=== PATIENT | male | born 1955 | race Caucasian/White ===

== ENCOUNTER 2017-02-03 14:42 | Inpatient (IN) | payer OTHER ==
[2017-02-03] MEDS: LORazepam 2 MG/ML SYRINGE IV STA ×3 (14:42→15:00)
[2017-02-03] MEDS: SODIUM CHLORIDE 0.9% 1,000 ML IV STA ×2 (14:53→19:28)
[2017-02-03] MEDS: SODIUM CHLORIDE 0.9% 500 ML IV STA ×2 (14:53→17:42)
--- NOTE | 2017-02-03 14:56 | ED ---
Seizure HPI - General Chief Complaint: Seizure Stated Complaint: SEIZURE Time Seen by Provider: 02/03/17 14:42 Source: family, EMS, RN notes reviewed Mode of arrival: EMS - History of Present Illness Initial Comments: This is a 61-year-old male with a known history of seizure disorder as well as hypertension who apparently had a seizure at home prior to admission EMS was called he was transported here for evaluation. He had a seizure lasting about 2 minutes and route and then had a second one just upon arrival before entering the emergency department. Additionally he had a another seizure upon arrival into the room and after being placed on the emergency department stretcher. This one lasted approximately 1 minute with tonic clonic activity more swelling left with left lateral gaze. Per the family member the patient is every day drinker is unknown how much he drinks a pipe was found in his possession is unknown whether this was for marijuana drugs or tobacco at this time. He purely does not smoke cigarettes. He is on Depakote as well as blood pressure medication. No other history available at this time. No reports of trauma no reports of fevers chills sweats or other symptoms information is limited at this time. I did review the monitor strip submitted by EMS. There was some evidence during the first post ictal phase of bigeminy which did transition to a sinus rhythm. MD Complaint: seizure - Related Data Home Medications Medication Instructions Recorded Confirmed Aspirin 325 mg PO DAILY 02/03/17 02/03/17 Cholecalciferol [Vitamin D3] 5,000 unit PO DAILY 02/03/17 02/03/17 Diphenox-Atrop 2.5-0.025 mg 1 - 2 tab PO QID PRN 02/03/17 02/03/17 [Lomotil] Losartan [Cozaar] 50 mg PO DAILY 02/03/17 02/03/17 QUEtiapine [SEROquel] 50 mg PO HS 02/03/17 02/03/17 Ranitidine HCl 150 mg PO BID 02/03/17 02/03/17 Venlafaxine HCl ER [Effexor Xr] 150 mg PO QAM 02/03/17 02/03/17 Venlafaxine HCl [Effexor XR] 75 mg PO QAM 02/03/17 02/03/17 amLODIPine [Norvasc] 5 mg PO DAILY 02/03/17 02/03/17 Allergies Allergy/AdvReac Type Severity Reaction Status Date / Time No Known Allergies Allergy Verified 05/22/15 23:50 Review of Systems ROS Statement: Those systems with pertinent positive or pertinent negative responses have been documented in the HPI. ROS Other: All systems not noted in ROS Statement are negative. Limitations: ROS unobtainable due to patients medical condition Past Medical History Past Medical History: Chest Pain / Angina, COPD, GERD/Reflux, Seizure Disorder History of Any Multi-Drug Resistant Organisms: None Reported Past Surgical History: Hernia Repair Additional Past Surgical History / Comment(s): right leg surgery Past Psychological History: Anxiety, Bipolar, Depression Smoking Status: Current some day smoker Past Alcohol Use History: Occasional Past Drug Use History: Marijuana General Exam - General Exam Comments Initial Comments: This is a well-developed well-nourished male who is actively seizing upon arrival with left lateral gaze and tonic clonic like activity on the left upper lower extremity. Limitations: altered mental status, physical limitation General appearance: obtunded Head exam: Present: atraumatic, normocephalic, normal inspection Eye exam: Present: other (Left lateral gaze with the pupils at about 2 mm bilaterally.) ENT exam: Present: normal exam, mucous membranes moist Neck exam: Present: normal inspection. Absent: tenderness, meningismus, lymphadenopathy Respiratory exam: Present: normal lung sounds bilaterally. Absent: respiratory distress, wheezes, rales, rhonchi, stridor Cardiovascular Exam: Present: regular rate, normal rhythm, normal heart sounds. Absent: systolic murmur, diastolic murmur, rubs, gallop, clicks GI/Abdominal exam: Present: soft, normal bowel sounds. Absent: distended, tenderness, guarding, rebound, rigid Rectal exam: Present: deferred exam: Present: normal inspection Extremities exam: Present: normal capillary refill, other (As noted above) Back exam: Present: normal inspection Neurological exam: Present: altered Psychiatric exam: Present: other (Unable to evaluate) Skin exam: Present: warm, dry, intact, normal color. Absent: rash Course Vital Signs 02/03/17 14:44 Temperature 98.2 F Pulse Rate 89 Respiratory 20 Rate Blood Pressure 154/75 O2 Sat by Pulse 100 Oximetry - Reevaluation(s) Reevaluation #1: 02/03/17 15:23 Reevaluation patient after he returned Reevaluation #2: 02/03/17 15:24 Reevaluation of the patient returned from CAT scan reveals resolution of the left lateral gaze with a normal-appearing gaze. No further seizure activity is noted. Reevaluation #3: 02/03/17 16:48 Patient was reevaluated he is actually arousable. He still somewhat post ictal. I did discuss the findings with family members or present. Medical Decision Making - Medical Decision Making I did discuss findings both with family members the patient and with Dr. Perez. Patient will be admitted with consultation by neurology and cardiology. The patient's Depakote level is therapeutic at this time. - Lab Data Result diagrams: 02/03/17 14:50 02/03/17 14:50 Lab Results 02/03/17 02/03/17 Range/Units 14:50 14:50 WBC 15.9 H (3.8-10.6) k/uL RBC 4.55 (4.30-5.90) m/uL Hgb 14.8 (13.0-17.5) gm/dL Hct 48.6 (39.0-53.0) % MCV 106.9 H (80.0-100.0) fL MCH 32.5 (25.0-35.0) pg MCHC 30.4 L (31.0-37.0) g/dL RDW 12.7 (11.5-15.5) % Plt Count 321 (150-450) k/uL Neutrophils % (Manual) 36.0 % Band Neutrophils % 6.0 % Lymphocytes % (Manual) 57.0 % Monocytes % (Manual) 1.0 % Neutrophils # (Manual) 6.7 (1.3-7.7) k/uL Lymphocytes # (Manual) 9.1 H (1.0-4.8) k/uL Monocytes # (Manual) 0.2 (0-1.0) k/uL Nucleated RBCs 0 (0-0) /100 WBC Manual Slide Review Performed Reactive Lymphocytes Present Toxic Granulation Present Hypochromasia Marked Macrocytosis Moderate Sodium 139 (137-145) mmol/L Potassium 4.3 (3.5-5.1) mmol/L Chloride 97 L (98-107) mmol/L Carbon Dioxide <5 L* (22-30) mmol/L Anion Gap 37 mmol/L BUN 13 (9-20) mg/dL Creatinine 1.40 H (0.66-1.25) mg/dL Est GFR (MDRD) Af Amer >60 (>60 ml/min/1.73 sqM) Est GFR (MDRD) Non-Af 52 (>60 ml/min/1.73 sqM) Glucose 189 H (74-99) mg/dL Calcium 10.2 (8.4-10.2) mg/dL Magnesium 2.7 H (1.6-2.3) mg/dL Total Bilirubin 0.4 (0.2-1.3) mg/dL AST 31 (17-59) U/L ALT 20 L (21-72) U/L Alkaline Phosphatase 107 (38-126) U/L Total Protein 7.2 (6.3-8.2) g/dL Albumin 4.7 (3.5-5.0) g/dL Amylase 60 (30-110) U/L Lipase 212 (23-300) U/L TSH 13.700 H (0.465-4.680) mIU/L Free T4 0.98 (0.78-2.19) ng/dL Salicylates <1.0 mg/dL Acetaminophen <10.0 ug/mL Valproic Acid 72.3 ug/mL Serum Alcohol <10 mg/dL - EKG Data -: EKG Interpreted by In EKG shows normal: sinus rhythm (Sinus rhythm a rate of 111 tachycardia, LA interval was 78 QRS duration 126 QT/QTC of 340/473 nonspecific interventricular block artifact is noted.) - Radiology Data Radiology results: report reviewed (I did review the imaging and reports CAT scan is negative for acute findings as is the chest x-ray.), image reviewed Critical Care Time Critical Care Time: Yes Critical Care Time: 42 minutes of critical care time which includes initial monitoring of the EMS run and discussed with paramedics. History physical lab and x-ray as well as CAT scan orders on the patient evaluation of the same. Reevaluation the patient on multiple occasions. Discussion with family members. Discussion with the admitting physician. Admission orders and documentation of the above. Disposition Clinical Impression: Generalized seizure, Dysrhythmia, cardiac, Hypothyroidism Disposition: ADMITTED IP TO THIS [facility] Condition: Stable
[2017-02-03] MEDS ORDERED: LORazepam 2 MG/ML SYRINGE IV STA ×3 (14:58→17:41)
[2017-02-03 15:02] LABS: Aty Lym Flag Slight; CH 31.1; CHCM 29.2; HCT 48.6 % (39.0-53.0); HDW 2.22; HGB 14.8 gm/dL (13.0-17.5); Hypochromasia Marked; MCH 32.5 pg (25.0-35.0); MCHC 30.4 g/dL (31.0-37.0); MCV 106.9 fL (80.0-100.0); Macrocytosis Moderate; Mean Platelet Volume 7.8; RBC 4.55 m/uL (4.30-5.90); RDW 12.7 % (11.5-15.5); WBC 15.9 k/uL (3.8-10.6); WBC (Perox) 16.08
[2017-02-03 15:14] LABS: ALT 20 U/L (21-72); AST 31 U/L (17-59); Acetaminophen <10.0 ug/mL; Alcohol <10 mg/dL; Alkaline Phosphatase 107 U/L (38-126); Amylase 60 U/L (30-110); Anion Gap 37 mmol/L; Blood Urea Nitrogen 13 mg/dL (9-20); Calcium 10.2 mg/dL (8.4-10.2); Chloride 97 mmol/L (98-107); Glucose 189 mg/dL (74-99); Magnesium 2.7 mg/dL (1.6-2.3); Non-African American GFR(MDRD) 52 (>60 ml/min/1.73 sqM); Potassium 4.3 mmol/L (3.5-5.1); Salicylate <1.0 mg/dL; Sodium 139 mmol/L (137-145); Total Bilirubin 0.4 mg/dL (0.2-1.3); Total Protein 7.2 g/dL (6.3-8.2)
[2017-02-03 15:20] LABS: Add Differential Manual Differential
[2017-02-03 15:23] LABS: Nucleated Red Blood Cells 0 /100 WBC (0-0); Total Cells Counted 100
[2017-02-03 15:24] LABS: Manual Review Performed; Reactive Lymphocytes Present; Toxic Granulation Present
--- NOTE | 2017-02-03 15:39 | CT ---
EXAMINATION TYPE: CT brain wo con DATE OF EXAM: 02/03/2017 3:30 PM COMPARISON: Previous study dated 04/21/2014. HISTORY: Seizures CT DLP: 1108.4 mGycm Automated exposure control for dose reduction was used. FINDINGS: Central structures are midline. There is no evidence of hydrocephalus. No acute focal lesion, mass ef fect or midline shift is seen. I do not see evidence of intracranial blood. Visualized portions of the paranasal sinuses and mastoids are clear. I do not see a depressed skull f racture. IMPRESSION: NO ACUTE INTRACRANIAL ABNORMALITY.
[2017-02-03 15:53] LABS: Carbon Dioxide <5 mmol/L (22-30)
--- NOTE | 2017-02-03 16:06 | XR ---
EXAMINATION TYPE: XR chest 1V portable DATE OF EXAM: 02/03/2017 3:37 PM HISTORY: pain. REFERENCE: Previous study dated 12/02/2014. FINDINGS: The lungs are overinflated. Heart size is upper limits of normal. The lungs are clear. Pleu ral spaces are clear. IMPRESSION: 1. COPD. 2. BORDERLINE CARDIOMEGALY.
[2017-02-03] MEDS ORDERED: LORazepam 2 MG/ML SYRINGE IV PRN (16:52)
[2017-02-03] MEDS ORDERED: NALOXONE 0.4 MG/ML 1 ML VIAL IV PRN (16:52)
[2017-02-03] MEDS ORDERED: PHENYTOIN SODIUM INJ 1,000 MG in SODIUM CHLORIDE 0.9% 100 ML IVPB STA (17:41)
--- NOTE | 2017-02-03 17:43 | ED ---
Medical Decision Making - Medical Decision Making The patient was noted to be back in a seizure his heart rate went up to about 1: 30 he was noted to have a left lateral gaze. Slight tremor additional Ativan and now a 1 g dose of Dilantin has been ordered. - Lab Data Result diagrams: 02/03/17 14:50 02/03/17 14:50 Lab Results 02/03/17 02/03/17 Range/Units 14:50 14:50 WBC 15.9 H (3.8-10.6) k/uL RBC 4.55 (4.30-5.90) m/uL Hgb 14.8 (13.0-17.5) gm/dL Hct 48.6 (39.0-53.0) % MCV 106.9 H (80.0-100.0) fL MCH 32.5 (25.0-35.0) pg MCHC 30.4 L (31.0-37.0) g/dL RDW 12.7 (11.5-15.5) % Plt Count 321 (150-450) k/uL Neutrophils % (Manual) 36.0 % Band Neutrophils % 6.0 % Lymphocytes % (Manual) 57.0 % Monocytes % (Manual) 1.0 % Neutrophils # (Manual) 6.7 (1.3-7.7) k/uL Lymphocytes # (Manual) 9.1 H (1.0-4.8) k/uL Monocytes # (Manual) 0.2 (0-1.0) k/uL Nucleated RBCs 0 (0-0) /100 WBC Manual Slide Review Performed Reactive Lymphocytes Present Toxic Granulation Present Hypochromasia Marked Macrocytosis Moderate Sodium 139 (137-145) mmol/L Potassium 4.3 (3.5-5.1) mmol/L Chloride 97 L (98-107) mmol/L Carbon Dioxide <5 L* (22-30) mmol/L Anion Gap 37 mmol/L BUN 13 (9-20) mg/dL Creatinine 1.40 H (0.66-1.25) mg/dL Est GFR (MDRD) Af Amer >60 (>60 ml/min/1.73 sqM) Est GFR (MDRD) Non-Af 52 (>60 ml/min/1.73 sqM) Glucose 189 H (74-99) mg/dL Calcium 10.2 (8.4-10.2) mg/dL Magnesium 2.7 H (1.6-2.3) mg/dL Total Bilirubin 0.4 (0.2-1.3) mg/dL AST 31 (17-59) U/L ALT 20 L (21-72) U/L Alkaline Phosphatase 107 (38-126) U/L Total Protein 7.2 (6.3-8.2) g/dL Albumin 4.7 (3.5-5.0) g/dL Amylase 60 (30-110) U/L Lipase 212 (23-300) U/L TSH 13.700 H (0.465-4.680) mIU/L Free T4 0.98 (0.78-2.19) ng/dL Salicylates <1.0 mg/dL Acetaminophen <10.0 ug/mL Valproic Acid 72.3 ug/mL Serum Alcohol <10 mg/dL Disposition Clinical Impression: Generalized seizure, Dysrhythmia, cardiac, Hypothyroidism, Status epilepticus Disposition: ADMITTED IP TO THIS [facility] Condition: Stable Referrals: Angelo Perez MD [Primary Care Provider] - 1-2 days
[2017-02-03] MEDS ORDERED: SODIUM CHLORIDE 0.9% 1,000 ML IV STA (17:53)
[2017-02-03] MEDS: SODIUM CHLORIDE 0.9% 1,000 ML IV SCH (19:00)
[2017-02-03 19:56] LABS: Glucose,Whole Blood 151 mg/dL (75-99)
[2017-02-03] MEDS: VALPROATE SODIUM 1,000 MG in SODIUM CHLORIDE 0.9% 50 ML IVPB SCH (21:11)
[2017-02-03] MEDS ORDERED: ACETAMINOPHEN IV (For NPO) 1,000 MG in EMPTY BAG 1 BAG IVPB ONE (22:31)
--- NOTE | 2017-02-03 22:50 | P.CNNES ---
History of Present Illness Consult date: 02/03/17 Reason for Consult: Patient admitted with recurrent seizures. History of Present Illness: This patient is a 61-year-old right-handed white male who has underlying history of seizure disorder and hypertension. Apparently he was having a seizure at home which lasted about 2 minutes in duration. He had a second seizure in the emergency room. Patient has a history of underlying seizure disorder for which she has been taking Depakote. His seizure in the emergency room lasted about 1 minute in duration with some postictal confusion. Patient was sent for computed tomography scan of the brain which revealed no acute abnormality. His drug screen did come back positive for marijuana as well as cocaine. He was given Ativan in the emergency room and then transferred to [facility] care. An A Team Code was initiated as a patient went into a episode of sonorous breathing and possible recurrent seizure. He was started on IV Dilantin and transferred to the intensive care unit. Patient was given another dose of Ativan in the ICU and his Dilantin was initiated. We switched the patient to IV Depacon and IV Dilantin for further seizure management. We recommended placing him on IV Depacon thousand milligrams IVP he back every 12 hours. He is currently on Dilantin with a maintenance dose of 100 mg IV piggyback every 8 hours. The patient remains lethargic and obtunded in the intensive care unit. He has had no further active seizure noted by the ICU nursing staff. Patient was noted in the ER to have left lateral eye gaze. This suggests seizure focus emanating from the right hemisphere. Patient continues to remain postictal. It is unclear whether the patient has been having frequent breakthrough seizures. Family was not at bedside at the time of his evaluation. We will obtain anticonvulsant blood levels tomorrow morning and adjust his dose as needed. We have requested a stat EEG procedure to be done in the ICU nursing staff will get in contact with the nursing supervisor wrapping room. The patient is to continue close monitoring in the intensive care unit. ICU nursing staff will try to reach family members for further history. Patient is now evaluated in the intensive care unit and neurology has been consulted for further evaluation and recommendations. Review of Systems Constitutional: Denies chills, Denies fever Eyes: denies blurred vision, denies pain Ears, nose, mouth and throat: Denies headache, Denies sore throat Cardiovascular: Denies chest pain, Denies shortness of breath Respiratory: Denies cough Gastrointestinal: Denies abdominal pain, Denies diarrhea, Denies nausea, Denies vomiting Musculoskeletal: Denies myalgias Integumentary: Denies pruritus, Denies rash Neurological: Reports change in mentation, Reports confusion, Reports convulsions, Reports seizures, Denies numbness, Denies weakness Psychiatric: Denies anxiety, Denies depression Endocrine: Denies fatigue, Denies weight change Past Medical History Past Medical History: Chest Pain / Angina, COPD, GERD/Reflux, Seizure Disorder History of Any Multi-Drug Resistant Organisms: None Reported Past Surgical History: Hernia Repair Additional Past Surgical History / Comment(s): right leg surgery Past Psychological History: Anxiety, Bipolar, Depression Smoking Status: Current some day smoker Past Alcohol Use History: Occasional Past Drug Use History: Marijuana Medications and Allergies Home Medications Medication Instructions Recorded Confirmed Type Aspirin 325 mg PO DAILY 02/03/17 02/03/17 History Cholecalciferol [Vitamin D3] 5,000 unit PO DAILY 02/03/17 02/03/17 History Diphenox-Atrop 2.5-0.025 mg 1 - 2 tab PO QID PRN 02/03/17 02/03/17 History [Lomotil] Losartan [Cozaar] 50 mg PO DAILY 02/03/17 02/03/17 History QUEtiapine [SEROquel] 50 mg PO HS 02/03/17 02/03/17 History Ranitidine HCl 150 mg PO BID 02/03/17 02/03/17 History Venlafaxine HCl ER [Effexor Xr] 150 mg PO QAM 02/03/17 02/03/17 History Venlafaxine HCl [Effexor XR] 75 mg PO QAM 02/03/17 02/03/17 History amLODIPine [Norvasc] 5 mg PO DAILY 02/03/17 02/03/17 History Allergies Allergy/AdvReac Type Severity Reaction Status Date / Time No Known Allergies Allergy Verified 05/22/15 23:50 Physical Examination - Vital Signs Vital Signs: Vital Signs Temp Pulse Resp BP Pulse Ox 02/03/17 18:16 98.7 F 139 H 18 173/96 96 02/03/17 17:34 137 H 20 164/78 94 L Intake and Output 02/03/17 02/03/17 02/03/17 06:59 14:59 22:59 Output Total 500 Balance -500 Output: Urine 500 Straight 500 - Constitutional General appearance: average body habitus, cooperative - EENT EENT: PERRL, mucous membranes moist - Respiratory Respiratory: lungs clear, normal breath sounds - Cardiovascular Cardiovascular: regular rate, normal S1, normal S2 Extremities: no peripheral edema bilaterally - Gastrointestinal Gastrointestinal: normoactive bowel sounds - Integumentary Integumentary: normal - Neurologic Cranial nerve examination: PERRL, VFF, V1/V2/V3 grossly intact, face symmetric, intact gag reflex, intact corneal reflex, normal palatal elevation Speech examination: intact Sensorimotor examination: intact Detailed motor examination: full strength in all major muscle groups Detailed sensory examination: intact Reflex and gait examination: intact Reflexes: 1+: ankle, bicep, knee, tricep - Musculoskeletal Musculoskeletal: no pain - Psychiatric Psychiatric: mood/affect appropriate, cooperative Results - Laboratory Findings CBC and BMP: 02/03/17 14:50 02/03/17 14:50 Abnormal Lab Findings: Abnormal Labs 02/03/17 02/03/17 18:05 19:53 POC Glucose (mg/dL) 151 H Urine Cocaine Screen Detected H U Marijuana (THC) Screen Detected H Assessment and Plan (1) Complex partial epilepsy Status: Acute Code(s): G40.209 - LOCAL-REL SYMPTC EPI W CMPLX PRT SEIZ,NOT NTRCT,W/O STAT EPI (2) Hypothyroidism Status: Acute Code(s): E03.9 - HYPOTHYROIDISM, UNSPECIFIED (3) Sepsis Status: Acute Code(s): A41.9 - SEPSIS, UNSPECIFIED ORGANISM (4) Drug abuse Status: Acute Code(s): F19.10 - OTHER PSYCHOACTIVE SUBSTANCE ABUSE, UNCOMPLICATED Plan: This patient is a 61-year-old male admitted with recurrent seizures. Patient was treated with Ativan in the emergency room and admitted to selective care floor. He then became obtunded and sonorous with possible breakthrough seizure. He was given Ativan and transferred to the intensive care unit. He was started on IV Dilantin in addition to Depakote. He has a long-standing history of seizure disorder for which she has been taking Depakote monotherapy. Due to the frequent breakthrough seizures he was started on Dilantin as well in the intensive care unit. We are recommending that he be maintained on both anticonvulsant medications at this time. We've requested a stat EEG for further evaluation. Patient is to be closely monitored in the intensive care unit. We will switch him to IV forms of both Depacon and Dilantin. We will place him on seizure precautions and we'll reevaluate him tomorrow morning. We will check anticonvulsant blood levels tomorrow morning as well. His overall prognosis at this time remains very guarded. We would like to review his EEG as soon as it is completed. His overall prognosis at this time remains very guarded. Time with Patient: Greater than 30
[2017-02-03] MEDS: PHENYTOIN SODIUM INJ 50 MG/ML 2 ML VIAL IVP SCH (23:42)
[2017-02-03] MEDS: QUEtiapine 50 MG TAB PO SCH (23:44)
[2017-02-03] MEDS: FAMOTIDINE 20 MG TAB PO SCH (23:44)
[2017-02-03 23:46] LABS: ABG Base Excess -3.6 mmol/L; ABG HCO3 21 mmol/L (21-25); ABG PCO2 37 mmHg (35-45); ABG PH 7.37 (7.35-7.45); ABG PO2 69 mmHg (83-108); ABG TCO2 22 mmol/L (19-24)
[2017-02-04] MEDS ORDERED: PHENYTOIN SODIUM INJ 100 MG in SODIUM CHLORIDE 0.9% 100 ML IVPB SCH ×2
[2017-02-04] MEDS ORDERED: DEXTROSE 50%-WATER 50 ML SYRINGE IVP ONE ×2 (02:32→14:36)
[2017-02-04 02:37] LABS: ABG Base Excess -7.5 mmol/L; ABG HCO3 16 mmol/L (21-25); ABG PCO2 26 mmHg (35-45); ABG PH 7.42 (7.35-7.45); ABG PO2 48 mmHg (83-108); ABG TCO2 17 mmol/L (19-24)
[2017-02-04 02:43] LABS: Glucose,Whole Blood 59 mg/dL (75-99)
[2017-02-04 02:48] LABS: Glucose,Whole Blood 228 mg/dL (75-99)
[2017-02-04] MEDS: SODIUM CHLORIDE 0.9% 1,000 ML IV SCH ×2 (04:11→13:53)
[2017-02-04 05:13] LABS: Basophils % (A) 0 %; CH 32.5; CHCM 34.4; Eosinophils % (A) 0 %; HCT 44.7 % (39.0-53.0); HDW 2.33; Luc # (Auto) 0.21; Luc % (Auto) 1; Lymphocytes # (A) 1.1 k/uL (1.0-4.8); Lymphocytes % (A) 7 %; MCH 31.7 pg (25.0-35.0); MCHC 33.5 g/dL (31.0-37.0); Mean Platelet Volume 6.6; Monocytes # (A) 1.3 k/uL (0-1.0); Monocytes % (A) 8 %; Neutrophils # (A) 13.9 k/uL (1.3-7.7); Neutrophils % (A) 84 %; RBC 4.73 m/uL (4.30-5.90); RDW 13.1 % (11.5-15.5); WBC 16.6 k/uL (3.8-10.6); WBC (Perox) 17.17
[2017-02-04 05:16] LABS: MCV 94.6 fL (80.0-100.0)
[2017-02-04 05:18] LABS: INR 1.1 (<1.1); Prothrombin Time 11.2 sec (9.0-12.0)
[2017-02-04] MEDS ORDERED: NALOXONE 0.4 MG/ML 1 ML VIAL IV PRN (05:34)
[2017-02-04 05:48] LABS: ALT 40 U/L (21-72); AST 70 U/L (17-59); Alkaline Phosphatase 68 U/L (38-126); Anion Gap 13 mmol/L; Blood Urea Nitrogen 17 mg/dL (9-20); Calcium 8.4 mg/dL (8.4-10.2); Carbon Dioxide 20 mmol/L (22-30); Chloride 99 mmol/L (98-107); Glucose 153 mg/dL (74-99); Magnesium 2.2 mg/dL (1.6-2.3); Non-African American GFR(MDRD) 57 (>60 ml/min/1.73 sqM); Phosphorous 4.7 mg/dL (2.5-4.5); Potassium 5.1 mmol/L (3.5-5.1); Sodium 132 mmol/L (137-145); Total Bilirubin 0.3 mg/dL (0.2-1.3); Total Protein 6.5 g/dL (6.3-8.2)
[2017-02-04] MEDS: LORazepam 2 MG/ML SYRINGE IV PRN ×5 (07:36→18:50)
--- NOTE | 2017-02-04 07:55 | XR ---
EXAMINATION TYPE: XR chest 1V portable DATE OF EXAM: 02/04/2017 7:50 AM HISTORY: ICU. REFERENCE: Previous study dated 02/03/2017. FINDINGS: The heart is mildly enlarged. There is a worsening infiltrate at the right lung base. There are small, bilateral effusions. IMPRESSION: 1. MILD CARDIOMEGALY. 2. WORSENING OPACITY, RIGHT LUNG BASE. THIS MAY REPRESENT PNEUMONIA. 3. SMALL, BILATERAL EFFUSIONS.
[2017-02-04] MEDS ORDERED: VENLAFAXINE HCL ER 150 MG CAP PO SCH (09:00)
[2017-02-04] MEDS: PHENYTOIN SODIUM INJ 50 MG/ML 2 ML VIAL IVP SCH ×2 (09:30→16:41)
[2017-02-04] MEDS: PANTOPRAZOLE 40 MG/10 ML VIAL IV SCH (09:31)
[2017-02-04] MEDS: VENLAFAXINE HCL ER 75 MG CAP PO SCH (09:31)
[2017-02-04] MEDS ORDERED: HALOPERIDOL LACTATE 5 MG/ML 1 ML VIAL IVP PRN ×3 (09:39→09:42)
--- NOTE | 2017-02-04 09:43 | P.CNPUL ---
History of Present Illness Consult date: 02/04/17 Reason for consult: other Chief complaint: Seizure disorder History of present illness: 61-year-old male with a history of well-known seizure disorder as well as hypertension was brought in by EMS because of seizures. Apparently had lasted about 2 minutes or more. The patient arrived and emergency department department and had another seizure in the ER. Also apparently had a seizure upon the floor. Was initially admitted to the floor on February 03 transferred to the ICU yesterday as well. The patient apparently did have a drug screen that was positive. The patient isn't everyday drinker. He also was found to have or use marijuana as well as tobacco products. His chronic medications including Depakote and a blood pressure pill. Anyway he is currently here in the ICU. Dr. Perez was ordered an EEG. He is very restless. We'll retry some Haldol to settle him down. Some of his restlessness and agitation may relate to alcohol withdrawal and this could represent alcoholic seizure disorder. Anyway he is currently on an IV. He is also getting BiPAP at 10 and 5 and 100%. The patient's mostly awake and alert but is somewhat agitated. Review of Systems ROS unobtainable: due to mental status Past Medical History Past Medical History: Chest Pain / Angina, COPD, GERD/Reflux, Seizure Disorder History of Any Multi-Drug Resistant Organisms: None Reported Past Surgical History: Hernia Repair Additional Past Surgical History / Comment(s): right leg surgery Past Psychological History: Anxiety, Bipolar, Depression Smoking Status: Current some day smoker Past Alcohol Use History: Occasional Past Drug Use History: Marijuana Medications and Allergies Home Medications Medication Instructions Recorded Confirmed Type Aspirin 325 mg PO DAILY 02/03/17 02/03/17 History Cholecalciferol [Vitamin D3] 5,000 unit PO DAILY 02/03/17 02/03/17 History Diphenox-Atrop 2.5-0.025 mg 1 - 2 tab PO QID PRN 02/03/17 02/03/17 History [Lomotil] Losartan [Cozaar] 50 mg PO DAILY 02/03/17 02/03/17 History QUEtiapine [SEROquel] 50 mg PO HS 02/03/17 02/03/17 History Ranitidine HCl 150 mg PO BID 02/03/17 02/03/17 History Venlafaxine HCl ER [Effexor Xr] 150 mg PO QAM 02/03/17 02/03/17 History Venlafaxine HCl [Effexor XR] 75 mg PO QAM 02/03/17 02/03/17 History amLODIPine [Norvasc] 5 mg PO DAILY 02/03/17 02/03/17 History Allergies Allergy/AdvReac Type Severity Reaction Status Date / Time No Known Allergies Allergy Verified 05/22/15 23:50 Physical Exam Osteopathic Statement: *. No significant issues noted on an osteopathic structural exam other than those noted in the History and Physical/Consult. Vitals: Vital Signs Temp Pulse Resp BP Pulse Ox 02/04/17 09:00 114 H 41 H 153/91 96 02/04/17 08:00 99.5 F 117 H 29 H 143/95 96 02/04/17 07:00 112 H 50 H 140/96 95 02/04/17 06:00 112 H 24 135/96 94 L 02/04/17 05:00 113 H 38 H 138/96 93 L 02/04/17 04:00 98.3 F 111 H 45 H 147/90 92 L 02/04/17 03:00 111 H 36 H 145/95 79 L 02/04/17 02:00 114 H 47 H 140/91 81 L 02/04/17 01:00 118 H 25 H 143/95 90 L 02/04/17 00:00 100.9 F H 119 H 27 H 145/85 88 L 02/03/17 23:00 102.9 F H 123 H 38 H 148/95 90 L 02/03/17 22:00 124 H 35 H 144/85 90 L 02/03/17 21:00 130 H 30 H 148/88 90 L 02/03/17 20:00 100.6 F H 131 H 36 H 145/85 94 L 02/03/17 19:20 137 H 32 H 148/88 91 L 02/03/17 18:16 98.7 F 139 H 18 173/96 96 02/03/17 17:34 137 H 20 164/78 94 L Intake and Output 02/03/17 02/04/17 02/04/17 22:59 06:59 14:59 Intake Total 200 Output Total 820 830 310 Balance -820 -830 -110 Intake: Intake, IV Titration 200 Amount Phenytoin Sodium Inj 1, 100 000 mg In Sodium Chloride 0.9% 100 ml @ 200 mls/hr IVPB ONCE STA Rx#: [id number] Sodium Chloride 0.9% 1, 100 000 ml @ 100 mls/hr IV . Q10H ON LICENSE OF [facility] Rx#:[id number] Output: Urine 820 830 310 Straight 500 Other: Voiding Method Indwelling Catheter Indwelling Catheter Weight 68.039 kg 78.6 kg No acute distress, somewhat agitated. HEENT examination is grossly unremarkable. BiPAP device in place. Can't assess abuse mucous membranes. Neck supple. Full range of motion. Cardiovascular examination reveals regular rhythm rate. Heart rate about 100. Lungs reveal few scattered rhonchi. No wheezes. Abdomen soft Extremities are intact. Results - Laboratory Findings CBC and BMP: 02/04/17 04:50 02/04/17 04:50 ABG ABG pH 7.42 (7.35-7.45) 02/04/17 02:31 ABG pCO2 26 mmHg (35-45) L 02/04/17 02:31 ABG pO2 48 mmHg (83-108) L 02/04/17 02:31 ABG O2 Saturation 85.0 % (94-97) L 02/04/17 02:31 PT/INR, D-dimer PT 11.2 sec (9.0-12.0) 02/04/17 04:50 INR 1.1 (<1.1) 02/04/17 04:50 Abnormal lab findings: Abnormal Labs 02/03/17 02/03/17 02/03/17 18:05 19:53 23:40 WBC Neutrophils # Monocytes # ABG pCO2 ABG pO2 69 L ABG HCO3 ABG Total CO2 ABG O2 Saturation 93.0 L Sodium Carbon Dioxide Creatinine Glucose POC Glucose (mg/dL) 151 H Phosphorus AST Urine Cocaine Screen Detected H U Marijuana (THC) Screen Detected H 02/04/17 02/04/17 02/04/17 02:31 02:31 02:47 WBC Neutrophils # Monocytes # ABG pCO2 26 L ABG pO2 48 L ABG HCO3 16 L ABG Total CO2 17 L ABG O2 Saturation 85.0 L Sodium Carbon Dioxide Creatinine Glucose POC Glucose (mg/dL) 59 L 228 H Phosphorus AST Urine Cocaine Screen U Marijuana (THC) Screen 02/04/17 02/04/17 04:50 04:50 WBC 16.6 H Neutrophils # 13.9 H Monocytes # 1.3 H ABG pCO2 ABG pO2 ABG HCO3 ABG Total CO2 ABG O2 Saturation Sodium 132 L Carbon Dioxide 20 L Creatinine 1.30 H Glucose 153 H POC Glucose (mg/dL) Phosphorus 4.7 H AST 70 H Urine Cocaine Screen U Marijuana (THC) Screen - Diagnostic Findings Chest x-ray: image reviewed (Chest x-ray labs and medications are all reviewed.)
[2017-02-04] MEDS: HALOPERIDOL LACTATE 5 MG/ML 1 ML VIAL IVP PRN ×3 (09:50→21:49)
[2017-02-04] MEDS: VALPROATE SODIUM 1,000 MG in SODIUM CHLORIDE 0.9% 50 ML IVPB SCH ×2 (09:57→21:48)
[2017-02-04 10:08] LABS: Glucose,Whole Blood 154 mg/dL (75-99)
[2017-02-04] MEDS: amLODIPine 5 MG TAB PO SCH (11:27)
[2017-02-04] MEDS: CHOLECALCIFEROL 1,000 UNIT TAB PO SCH (11:28)
[2017-02-04] MEDS: ENOXAPARIN 40 MG/0.4 ML SYRINGE SQ SCH (11:28)
[2017-02-04] MEDS: LOSARTAN 50 MG TAB PO SCH (11:28)
[2017-02-04] MEDS: ASPIRIN 325 MG TAB PO SCH (11:28)
[2017-02-04 12:08] LABS: Glucose,Whole Blood 182 mg/dL (75-99)
[2017-02-04] MEDS: LEVOTHYROXINE IVP 100 MCG/5 ML VIAL IV SCH (13:49)
[2017-02-04] MEDS ORDERED: PHENYTOIN SODIUM INJ 500 MG in SODIUM CHLORIDE 0.9% 100 ML IVPB STA (14:35)
--- NOTE | 2017-02-04 15:38 | CONS ---
DATE OF CONSULTATION: Mr. Valerio is a 61-year-old male with a known long standing history of seizure disorder, who presented to the emergency room with seizure that was persistent in status epilepticus. He is weak but not following commands. He was more postictal yesterday. Apparently the patient has a history of chronic alcohol and drug use. There is no cardiac history according to the family although the details of that are not available to me. Hemodynamically he is stable. He has sinus tachycardia, but no evidence of malignant arrhythmia. Review of systems and past medical history beyond that cannot be obtained. But reviewing the old records, the patient has a history of bipolar disorder, history of anxiety, history of gastroesophageal reflux disease, chronic obstructive lung disease. His medications at the time of admission included amlodipine, Effexor, Seroquel, Cozaar and aspirin. PHYSICAL EXAMINATION: He is a 61-year-old male not answering verbal questions. Blood pressure 124/80 with a heart in the one teens with a temperature of 100.3. HEAD: Normocephalic. EYES: Sclerae anicteric. NECK: No bruit. LUNGS: Clear to auscultation anteriorly. HEART: Tachycardic. S1, S2, no S3, no rub. ABDOMEN: Soft, positive bowel sounds. No organomegaly. EXTREMITIES: Chronic skin changes. No significant edema. Lab data revealed a BUN and creatinine of 17 and 1.3. Potassium 5.1. Hemoglobin 15, white blood cell of 16.6. Her TSH of 13.7. FT4 0.98. His drug screen is positive for cocaine and marijuana. His EKG revealed sinus tachycardia with nonspecific intraventricular conduction delay. His chest x-ray shows possible pneumonia. IMPRESSION: 1. Seizure with persistent seizure activity at the time of presentation, improved at this time. 2. Sinus tachycardia. 3. Positive cocaine intake. 4. History of alcohol intake. 5. History of hypertension. RECOMMENDATIONS: From the cardiac standpoint, will continue on the present supportive care. There is no evidence of active cardiac issue at this time. I will obtain an echocardiogram with Doppler to evaluate his left ventricular systolic function and depending on his progress, further recommendation will be made. The prognosis is guarded. Thank you for this consult. Will follow with you.
--- NOTE | 2017-02-04 15:41 | P.PN ---
Subjective This patient is a 61-year-old male who is seen today in the intensive care unit. Patient was admitted with multiple breakthrough seizures. He has a history of underlying seizure disorder. He is currently on a combination of Depakote and Dilantin for seizure prophylaxis. According to the ICU nursing staff he has not had any recurrent seizures since last night. His Depakote level this morning is 58.2. His Dilantin level is 6.7. He may require a bolus of Dilantin to get his Dilantin level into a therapeutic range. We had requested a stat EEG to be performed for this patient this morning. Apparently the manufacturing maintenance technician was having difficulty as a patient is currently on BiPAP. We will need to attempt the EEG to see if there is any evidence of complex partial status epilepticus. EEG was completed today. We reviewed the EEG which reveals diffuse slowing. There is no evidence of active seizure focus or status epilepticus based on this EEG finding. Patient is currently on BiPAP. He does seem to be more awake and alert today as compared to yesterday. According to his who is at bedside his last seizure occurred about a month ago. His Dilantin level was slightly low today and we will be giving him a IV bolus and recheck his levels tomorrow morning. Plans are to consider weaning him off of the BiPAP later today. Patient also has low-grade temperature. We will continue close neurological follow-up of this patient in the intensive care unit. He is to be maintained on his current anticonvulsant medications. His prognosis at this time remains guarded. Objective - Vital Signs Vital signs: Vital Signs Temp 100.3 F H 02/04/17 11:00 Pulse 106 H 02/04/17 13:00 Resp 31 H 02/04/17 13:00 BP 116/85 02/04/17 13:00 Pulse Ox 92 L 02/04/17 13:00 Intake & Output 02/03/17 02/04/17 02/04/17 18:59 06:59 18:59 Intake Total 850 Output Total 500 1150 1120 Balance -500 -1150 -270 Weight 68.039 kg 78.6 kg 78.6 kg Intake: IV 600 Sodium Chloride 0.9% 1, 600 000 ml @ 100 mls/hr IV . [facility] Rx#:[id number] Intake, IV Titration 250 Amount Phenytoin Sodium Inj 1, 100 000 mg In Sodium Chloride 0.9% 100 ml @ 200 mls/hr IVPB ONCE STA Rx#: [id number] Sodium Chloride 0.9% 1, 100 000 ml @ 100 mls/hr IV . Q10H [facility] Rx#:[id number] Valproate Sodium 1,000 mg 50 In Sodium Chloride 0.9% 50 ml @ 50 mls/hr IVPB Q12HR [facility] Rx#:[id number] Output: Urine 500 1150 1120 Straight 500 Other: Voiding Method Indwelling Catheter Indwelling Catheter - Exam Physical examination: PHYSICAL EXAMINATION: Patient is resting comfortably in bed. VITAL SIGNS: Blood pressure is [116/85]. Heart rate is [106]. Respiration is [30 ]. Temperature is [100.3]. HEENT: Head is atraumatic, neck is supple, there were no carotid bruits. CHEST: Lungs are clear to auscultation and percussion. CARDIAC: S1, S2 normal rate and rhythm. There is no murmur. ABDOMEN: Soft and nontender. Bowel sounds are present. EXTREMITIES: There is no pedal edema. Peripheral pulses are present. Neurological examination: Patient's neurological examination is unchanged from yesterday. Patient is sitting in bed with BiPAP in place. He does seem to be more awake and alert today. He is moving all extremities. - Labs CBC & Chem 7: 02/04/17 04:50 02/04/17 04:50 Labs: Abnormal Lab Results - Last 24 Hours (Table) 02/03/17 02/03/17 02/03/17 Range/Units 18:05 19:53 23:40 WBC (3.8-10.6) k/uL Neutrophils # (1.3-7.7) k/uL Monocytes # (0-1.0) k/uL ABG pCO2 (35-45) mmHg ABG pO2 69 L (83-108) mmHg ABG HCO3 (21-25) mmol/L ABG Total CO2 (19-24) mmol/L ABG O2 Saturation 93.0 L (94-97) % Sodium (137-145) mmol/L Carbon Dioxide (22-30) mmol/L Creatinine (0.66-1.25) mg/dL Glucose (74-99) mg/dL POC Glucose (mg/dL) 151 H (75-99) mg/dL Phosphorus (2.5-4.5) mg/dL AST (17-59) U/L Urine Cocaine Screen Detected H (NotDetected) U Marijuana (THC) Screen Detected H (NotDetected) 02/04/17 02/04/17 02/04/17 Range/Units 02:31 02:31 02:47 WBC (3.8-10.6) k/uL Neutrophils # (1.3-7.7) k/uL Monocytes # (0-1.0) k/uL ABG pCO2 26 L (35-45) mmHg ABG pO2 48 L (83-108) mmHg ABG HCO3 16 L (21-25) mmol/L ABG Total CO2 17 L (19-24) mmol/L ABG O2 Saturation 85.0 L (94-97) % Sodium (137-145) mmol/L Carbon Dioxide (22-30) mmol/L Creatinine (0.66-1.25) mg/dL Glucose (74-99) mg/dL POC Glucose (mg/dL) 59 L 228 H (75-99) mg/dL Phosphorus (2.5-4.5) mg/dL AST (17-59) U/L Urine Cocaine Screen (NotDetected) U Marijuana (THC) Screen (NotDetected) 02/04/17 02/04/17 02/04/17 Range/Units 04:50 04:50 10:06 WBC 16.6 H (3.8-10.6) k/uL Neutrophils # 13.9 H (1.3-7.7) k/uL Monocytes # 1.3 H (0-1.0) k/uL ABG pCO2 (35-45) mmHg ABG pO2 (83-108) mmHg ABG HCO3 (21-25) mmol/L ABG Total CO2 (19-24) mmol/L ABG O2 Saturation (94-97) % Sodium 132 L (137-145) mmol/L Carbon Dioxide 20 L (22-30) mmol/L Creatinine 1.30 H (0.66-1.25) mg/dL Glucose 153 H (74-99) mg/dL POC Glucose (mg/dL) 154 H (75-99) mg/dL Phosphorus 4.7 H (2.5-4.5) mg/dL AST 70 H (17-59) U/L Urine Cocaine Screen (NotDetected) U Marijuana (THC) Screen (NotDetected) 02/04/17 Range/Units 12:06 WBC (3.8-10.6) k/uL Neutrophils # (1.3-7.7) k/uL Monocytes # (0-1.0) k/uL ABG pCO2 (35-45) mmHg ABG pO2 (83-108) mmHg ABG HCO3 (21-25) mmol/L ABG Total CO2 (19-24) mmol/L ABG O2 Saturation (94-97) % Sodium (137-145) mmol/L Carbon Dioxide (22-30) mmol/L Creatinine (0.66-1.25) mg/dL Glucose (74-99) mg/dL POC Glucose (mg/dL) 182 H (75-99) mg/dL Phosphorus (2.5-4.5) mg/dL AST (17-59) U/L Urine Cocaine Screen (NotDetected) U Marijuana (THC) Screen (NotDetected) Assessment and Plan (1) Complex partial epilepsy Status: Acute Code(s): G40.209 - LOCAL-REL SYMPTC EPI W CMPLX PRT SEIZ,NOT NTRCT,W/O STAT EPI (2) Hypothyroidism Status: Acute Code(s): E03.9 - HYPOTHYROIDISM, UNSPECIFIED (3) Sepsis Status: Acute Code(s): A41.9 - SEPSIS, UNSPECIFIED ORGANISM (4) Drug abuse Status: Acute Code(s): F19.10 - OTHER PSYCHOACTIVE SUBSTANCE ABUSE, UNCOMPLICATED Plan: This patient is a 61-year-old male who is being followed in the intensive care unit for seizure disorder. He was able to complete a EEG today which was reviewed. His EEG is diffusely slow with no evidence of any epileptic seizure focus. There is also no evidence of status epilepticus. He is on Depakote and Dilantin at this time. His Depakote level today is therapeutic. His Dilantin level was slightly subtherapeutic. We will give him an IV bolus of Dilantin and recheck levels tomorrow morning. Case was discussed at length today with the patient's who is at bedside. All of her questions were answered. She is aware of his guarded condition. We will continue close neurological follow- up for this patient in the intensive care unit.
[2017-02-04 18:49] LABS: Glucose,Whole Blood 171 mg/dL (75-99)
[2017-02-04] MEDS: QUEtiapine 50 MG TAB PO SCH (21:43)
--- NOTE | 2017-02-04 21:49 | EEG ---
DATE OF SERVICE: 02/04/2017 INDICATIONS FOR EXAMINATION: This patient is a 61 -year-old male with history of seizure disorder. The patient admitted with multiple break through seizures and possible status epilepticus. EEG for further evaluation. AGE: 61Y EEG FINDINGS: A routine 21 channel awake digital EEG recording was accomplished utilizing the 10-20 international system with bipolar and referential montages. The background activity in the most alert resting state consists of a low amplitude, poorly developed and poorly sustained 4-5 Hz activity over the posterior head regions. This posterior rhythm attenuates minimally to eye opening. There is an excessive amount of muscle and motion artifact seen throughout the entire tracing. Hyperventilation was not performed. Photic stimulation at flash frequencies of 2-30 Hz produced a minimal occipital driving response. No epileptiform discharges were seen. IMPRESSION: This EEG gives evidence of a severe widespread diffuse disturbance in cerebral function. The EEG failed to reveal any focal, lateralized or epileptiform abnormalities. There is no evidence of complex partial status epilepticus based on this EEG tracing. If clinically indicated, a follow-up EEG is recommended. Clinical correlation is recommended.
[2017-02-04 22:21] LABS: Glucose,Whole Blood 142 mg/dL (75-99)
[2017-02-05] MEDS: SODIUM CHLORIDE 0.9% 1,000 ML IV SCH ×3 (00:58→17:48)
[2017-02-05] MEDS: PHENYTOIN SODIUM INJ 50 MG/ML 2 ML VIAL IVP SCH ×2 (00:58→09:43)
[2017-02-05] MEDS: LORazepam 2 MG/ML SYRINGE IV PRN ×4 (02:14→20:43)
[2017-02-05] MEDS: HALOPERIDOL LACTATE 5 MG/ML 1 ML VIAL IVP PRN ×3 (03:22→19:25)
[2017-02-05 04:59] LABS: Basophils % (A) 0 %; CH 32.7; CHCM 34.2; Eosinophils # (A) 0.1 k/uL (0-0.7); Eosinophils % (A) 1 %; HCT 39.8 % (39.0-53.0); HGB 13.4 gm/dL (13.0-17.5); Luc # (Auto) 0.13; Luc % (Auto) 1; Lymphocytes % (A) 10 %; MCH 32.4 pg (25.0-35.0); MCHC 33.8 g/dL (31.0-37.0); MCV 96.1 fL (80.0-100.0); Mean Platelet Volume 6.9; Monocytes # (A) 0.7 k/uL (0-1.0); Monocytes % (A) 7 %; Neutrophils # (A) 8.9 k/uL (1.3-7.7); Neutrophils % (A) 82 %; RBC 4.14 m/uL (4.30-5.90); RDW 13.2 % (11.5-15.5); WBC 10.8 k/uL (3.8-10.6); WBC (Perox) 11.59
[2017-02-05 05:11] LABS: Anion Gap 10 mmol/L; Blood Urea Nitrogen 14 mg/dL (9-20); Calcium 8.1 mg/dL (8.4-10.2); Carbon Dioxide 23 mmol/L (22-30); Chloride 109 mmol/L (98-107); Glucose 139 mg/dL (74-99); Non-African American GFR(MDRD) >60 (>60 ml/min/1.73 sqM); Potassium 4.8 mmol/L (3.5-5.1); Sodium 142 mmol/L (137-145)
--- NOTE | 2017-02-05 07:00 | XR ---
EXAMINATION TYPE: XR chest 1V DATE OF EXAM: 02/05/2017 6:29 AM HISTORY: Productive cough. REFERENCE: Previous study dated 02/04/2017. FINDINGS: The heart remains enlarged. There is a continuing area of increased opacity right lung base . This may represent pneumonia. There are bilateral effusions, greater on the right left. IMPRESSION: NO INTERVAL CHANGE IN APPEARANCE OF THE CHEST.
[2017-02-05 07:27] LABS: Glucose,Whole Blood 145 mg/dL (75-99)
[2017-02-05] MEDS ORDERED: LEVOTHYROXINE IVP 100 MCG/5 ML VIAL IV SCH (09:00)
[2017-02-05] MEDS: LEVOTHYROXINE IVP 100 MCG/5 ML VIAL IV SCH (09:43)
[2017-02-05] MEDS: ENOXAPARIN 40 MG/0.4 ML SYRINGE SQ SCH (09:43)
[2017-02-05] MEDS: PANTOPRAZOLE 40 MG/10 ML VIAL IV SCH (09:45)
[2017-02-05] MEDS: VALPROATE SODIUM 1,000 MG in SODIUM CHLORIDE 0.9% 50 ML IVPB SCH ×2 (09:46→21:58)
--- NOTE | 2017-02-05 10:04 | ECHOF ---
Referral Reason:htn MEASUREMENTS -------- HEIGHT: 182.9 cm WEIGHT: 78.5 kg BP: IVSd: 1.0 cm (0.6 - 1.1) LVIDd: 5.8 cm (3.9 - 5.3) LVPWd: 1.4 cm (0.6 - 1.1) IVSs: 1.3 cm LVIDs: 4.9 cm LVPWs: 1.5 cm LA Diam: 3.2 cm (2.7 - 3.8) LAESV Index (A-L): 19.39 ml/m Ao Diam: 4.2 cm (2.0 - 3.7) MV E Kevan: 0.52 m/s MV DecT: 190 ms MV A Kevan: 0.84 m/s MV E/A Ratio: 0.61 RAP: 5.00 mmHg RVSP: 30.81 mmHg FINDINGS -------- Sinus rhythm. Pt. is combative There is severe global hypokinesis of LV . Overall left ventricular systolic function is severely impaired with, an EF < 20%. Basal Segment Abran only. The right ventricle is normal in size. Normal LA size by volume 22+/-6 ml/m2. The right atrial size is normal. There is mild aortic valve sclerosis. There is no evidence of aortic regurgitation. Mild mitral annular calcification present. Mild mitral regurgitation is present. Mild tricuspid regurgitation present. There is no evidence of pulmonary hypertension. The right ventricular systolic pressure, as measured by Doppler, is 30.81mmHg. There is no pulmonic regurgitation present. The aortic root size is normal. There is no pericardial effusion. CONCLUSIONS -------- 1. Pt. is combative 2. The right ventricular systolic pressure, as measured by Doppler, is 30.81mmHg. 3. There is severe global hypokinesis of LV . 4. Overall left ventricular systolic function is severely impaired with, an EF < 20%. 5. Basal Segment Abran only. 6. There is mild aortic valve sclerosis. 7. Mild mitral annular calcification present. 8. Mild mitral regurgitation is present. 9. Mild tricuspid regurgitation present. 10. There is no evidence of pulmonary hypertension. LAYDOWN MACHINE OPERATOR: Willa Basilio RDCS
[2017-02-05] MEDS: ASPIRIN 325 MG TAB PO SCH (10:33)
[2017-02-05] MEDS: VENLAFAXINE HCL ER 75 MG CAP PO SCH ×2 (10:33)
[2017-02-05] MEDS: LOSARTAN 50 MG TAB PO SCH (10:33)
[2017-02-05] MEDS: amLODIPine 5 MG TAB PO SCH (10:33)
[2017-02-05] MEDS: CHOLECALCIFEROL 1,000 UNIT TAB PO SCH (10:33)
[2017-02-05] MEDS ORDERED: PHENYTOIN SODIUM INJ 50 MG/ML 2 ML VIAL IVP STA (11:05)
[2017-02-05] MEDS ORDERED: PHENYTOIN SODIUM INJ 200 MG in SODIUM CHLORIDE 0.9% 100 ML IV STA (11:09)
--- NOTE | 2017-02-05 11:42 | P.PN ---
Subjective This patient is a 61-year-old right-handed white male who has underlying history of seizure disorder and hypertension. Apparently he was having a seizure at home which lasted about 2 minutes in duration. He had a second seizure in the emergency room. Patient has a history of underlying seizure disorder for which she has been taking Depakote. His seizure in the emergency room lasted about 1 minute in duration with some postictal confusion. Patient was sent for computed tomography scan of the brain which revealed no acute abnormality. His drug screen did come back positive for marijuana as well as cocaine. He was given Ativan in the emergency room and then transferred to [facility]. An A Team Code was initiated as a patient went into a episode of snorous breathing and possible recurrent seizure. He was started on IV Dilantin and transferred to the intensive care unit. Patient was given another dose of Ativan in the ICU and his Dilantin was initiated. We switched the patient to IV Depacon and IV Dilantin for further seizure management. We recommended placing him on IV Depacon thousand milligrams IVP he back every 12 hours. He is currently on Dilantin with a maintenance dose of 100 mg IV piggyback every 8 hours. The patient remains lethargic and obtunded in the intensive care unit. He has had no further active seizure noted by the ICU nursing staff. Patient was noted in the ER to have left lateral eye gaze. This suggests seizure focus emanating from the right hemisphere. Patient continues to remain postictal. It is unclear whether the patient has been having frequent breakthrough seizures Over the past 24hours the patient has been in the intensive care unit, and the patient was not witnessed to have any seizure. His current antiepileptic medication includes a combination of Dilantin and valproic acid. The Dilantin level is at 8.8 and the patient will receive another 200 mg of IV Dilantin and his maintenance dose will be 200 mg IV every 12 hours. He is also on valproic acid and the level was 61.5. The patient is moving all 4 extremities. He occasionally gets confused and thrashes. He had required Ativan during this ICU stay and his last Ativan dose was 1 milligram around 8am this morning. There is a concern that the patient is also withdrawing from alcohol knowing that he has also history of alcoholism and he is currently on the CITX protocol. Furthermore, the patient had an echocardiogram this morning that showed a poor LV function with ejection fraction of 20% and there is mild aortic sclerosis and mild tricuspid and mitral regurgitation. There is no evidence of any pulmonary hypertension. No evidence of any pericardial effusion. Chest x-ray remains abnormal with a large right lower lobe consolidation which probably is a representation of an underlying aspiration pneumonia..Furthermore, the patient was having labored breathing earlier this morning in conjunction with this right lower lobe findings and based on that the patient was placed on a BiPAP with settings of 10 and 500 FiO2 of 70%. The patient is much more comfortable while being on a BiPAP treatment at this point. Breathing is less labored. Objective - Vital Signs Vital signs: Vital Signs Temp 99.8 F H 02/05/17 08:00 Pulse 111 H 02/05/17 11:00 Resp 11 L 02/05/17 11:00 BP 122/74 02/05/17 11:00 Pulse Ox 100 02/05/17 11:00 Intake & Output 02/04/17 02/05/17 02/05/17 18:59 06:59 18:59 Intake Total 1450 1200 550 Output Total 1790 820 60 Balance -340 380 490 Weight 78.6 kg 78.6 kg Intake: IV 1100 1200 500 Sodium Chloride 0.9% 1, 1100 1200 500 000 ml @ 100 mls/hr IV . Q10H [facility] Rx#:[id number] Intake, IV Titration 350 50 Amount Phenytoin Sodium Inj 1, 100 000 mg In Sodium Chloride 0.9% 100 ml @ 200 mls/hr IVPB ONCE STA Rx#: [id number] Phenytoin Sodium Inj 500 100 mg In Sodium Chloride 0.9 % 100 ml @ 200 mls/hr IVPB ONCE STA Rx#: [id number] Sodium Chloride 0.9% 1, 100 000 ml @ 100 mls/hr IV . Q10H [facility] Rx#:[id number] Valproate Sodium 1,000 mg 50 50 In Sodium Chloride 0.9% 50 ml @ 50 mls/hr IVPB Q12HR [facility] Rx#:[id number] Output: Urine 1790 820 60 Other: Voiding Method Indwelling Catheter Indwelling Catheter # Voids 1 - Exam The patient is currently on a BiPAP at a pressure of 10 over 5 cm of water and FiO2 of 70%. Is tolerating a full face BiPAP mask. Not using excessive muscle breathing. Head exam was generally normal. There was no scleral icterus or corneal arcus. Mucous membranes were moist.Neck was supple and without jugular venous distension, thyromegaly, or carotid bruits. Carotids were easily palpable bilaterally. There was no adenopathy.Cardiac exam revealed the PMI to be normally situated and sized. The rhythm was regular and no extrasystoles were noted during several minutes of auscultation. The first and second heart sounds were normal and physiologic splitting of the second heart sound was noted. There were no murmurs, rubs, clicks, or gallops. Lungs sounds are diminished in the right lung base along with some right basilar crackles.Abdominal exam revealed normal bowel sounds. The abdomen was soft, non- tender, and without masses, organomegaly, or appreciable enlargement of the abdominal aorta.Examination of the extremities revealed easily palpable radial, femoral and pedal pulses. There was no cyanosis, clubbing or edema. Neurologically the patient will undergo 4 extremities. He is quite strong. He cannot follow commands consistently and his level of focus and attention is limited to none as the patient can easily gets distracted and does not follow particular or complex commands. Swallow needs to be checked knowing that the patient has no gag reflex with MB elicited on today's evaluation. No focal neurological deficits at this point. - Labs CBC & Chem 7: 02/05/17 04:41 02/05/17 04:41 Labs: Abnormal Lab Results - Last 24 Hours (Table) 02/04/17 02/04/17 02/04/17 Range/Units 12:06 18:29 22:19 WBC (3.8-10.6) k/uL RBC (4.30-5.90) m/uL Neutrophils # (1.3-7.7) k/uL Chloride (98-107) mmol/L Glucose (74-99) mg/dL POC Glucose (mg/dL) 182 H 171 H 142 H (75-99) mg/dL Calcium (8.4-10.2) mg/dL 02/05/17 02/05/17 02/05/17 Range/Units 04:41 04:41 07:25 WBC 10.8 H (3.8-10.6) k/uL RBC 4.14 L (4.30-5.90) m/uL Neutrophils # 8.9 H (1.3-7.7) k/uL Chloride 109 H (98-107) mmol/L Glucose 139 H (74-99) mg/dL POC Glucose (mg/dL) 145 H (75-99) mg/dL Calcium 8.1 L (8.4-10.2) mg/dL Assessment and Plan Plan: Assessment 1 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 2 change in mental status, rule out postictal state. Rule out alcoholic encephalopathy/delirium tremens. 3 acute hypoxic respiratory failure 4 acute right lower lobe consolidation/aspiration pneumonia 5 CHF with ejection fraction of 20%, rule out alcoholic cardiomyopathy, rule out cocaine induced, rule out ischemic myopathy 6 hypothyroidism 7 history of marijuana and cocaine abuse 8 hypertension 9 bipolar disorder 10 chronic anxiety disorder 11 GERD Plan *The patient IV Zosyn for aspiration pneumonia. Continue on BiPAP therapy. Monitor mental status. Proceed with Ativan for any symptoms of delirium tremens. Continue monitoring the antiepileptic medication and adjusted dose of Dilantin and Depakote accordingly. Monitor for any seizure activity. Seizure precautions. Keep the patient nothing by mouth for now. Patient has no reliable gag no his mentation is adequate for any feeding at this point. The patient has to be treated here in the intensive care unit. The patient has an evolving right lung pneumonia and he is headed towards respiratory failure. The patient will need to be monitored neurologically for his mentation specially with a combination of postictal depression and alcoholic delirium tremens. Will add thiamine and MVI. I will suggest cutting down the fluids to 75 mL an hour of 0.9 saline. We'll continue to follow. Repeat chest x-ray in the morning. Monitor electrolytes. There is a critically care evaluation that was done and 32 minutes. Time with Patient: Greater than 30
[2017-02-05 12:10] LABS: Glucose,Whole Blood 133 mg/dL (75-99)
[2017-02-05] MEDS: PIPERACILLIN-TAZOBACTAM 3.375 GM in DEXTROSE/WATER 1 50ML.BAG IVPB SCH ×2 (13:13→17:45)
[2017-02-05] MEDS ORDERED: SODIUM CHLORIDE 0.9% 1,000 ML BAG ONE (13:13)
[2017-02-05] MEDS: 1: MVI, ADULT NO.4 WITH VIT K 10 ML, THIAMINE 100 MG, FOLIC ACID 1 MG in SODIUM CHLORIDE IV SCH ×4 (13:13)
--- NOTE | 2017-02-05 15:16 | P.PN ---
Subjective 61-year-old being seen in the intensive care unit this morning. Patient is confused pulled out his indwelling [place] catheter. Patient is sitting up in bed oriented to self only. Does not consistently follow simple commands echocardiogram done this morning shows left ventricular systolic function is severely impaired with an EF less than 20 no evidence of pulmonary hypertension currently being followed by neurology pulmonology. Patient's initial presentation to the emergency room. Patient had a seizure at home and had a second seizure in the emergency room. Patient does have a history of a seizure disorder had been taking Depakote at home. Reviewing the record in the emergency room indicate the seizure last one minute in duration patient had postictal confusion . CAT scan of the brain showed no acute abnormality. Patient had a drug screen that did come back positive for cocaine and marijuana. In the emergency room patient was given Ativan and transferred to the [facility]. Apparently an team need to be initiated when patient had an episode of snorous breathing a possible recurrent seizure. Patient was transferred to the intensive care unit. Patient started on IV Dilantin and monitor closely. This been no further seizure activity noted. Patient this morning Objective - Vital Signs Vital signs: Vital Signs Temp 98.9 F 02/05/17 12:00 Pulse 110 H 02/05/17 13:00 Resp 24 02/05/17 13:00 BP 105/71 02/05/17 13:00 Pulse Ox 99 02/05/17 13:00 Intake & Output 02/04/17 02/05/17 02/05/17 18:59 06:59 18:59 Intake Total 1450 1200 825 Output Total 1790 820 60 Balance -340 380 765 Weight 78.6 kg 78.6 kg Intake: IV 1100 1200 775 Mvi, Adult No.4 with Vit 75 K 10 ml Thiamine 100 mg Folic Acid 1 mg In Sodium Chloride 0.9% 1,000 ml @ 75 mls/hr IV .BY DURATION [facility] Rx#: [id number] Phenytoin Sodium Inj 200 100 mg In Sodium Chloride 0.9 % 100 ml @ 200 mls/hr IV ONCE STA Rx#:[id number] Sodium Chloride 0.9% 1, 1100 1200 600 000 ml @ 100 mls/hr IV . Q10H [facility] Rx#:[id number] Intake, IV Titration 350 50 Amount Phenytoin Sodium Inj 1, 100 000 mg In Sodium Chloride 0.9% 100 ml @ 200 mls/hr IVPB ONCE STA Rx#: [id number] Phenytoin Sodium Inj 500 100 mg In Sodium Chloride 0.9 % 100 ml @ 200 mls/hr IVPB ONCE STA Rx#: [id number] Sodium Chloride 0.9% 1, 100 000 ml @ 100 mls/hr IV . Q10H [facility] Rx#:[id number] Valproate Sodium 1,000 mg 50 50 In Sodium Chloride 0.9% 50 ml @ 50 mls/hr IVPB Q12HR [facility] Rx#:[id number] Output: Urine 1790 820 60 Other: Voiding Method Indwelling Catheter Indwelling Catheter # Voids 1 - Exam GENERAL APPEARANCE: 61-year-old male patient is alert, oriented to self only, in no acute distress. Does not consistently follow simple commands randomly moving all extremities VITAL SIGNS: Reviewed HEENT: Head is normocephalic and atraumatic. Pupils are equal and reactive. The nares are patent. Oropharynx is clear without lesions. NECK: Supple without lymphadenopathy. Traches midline. HEART: S1, S2. Regular rate and rhythm. Monitor sinus no murmur noted LUNGS: No crackles or wheezes are heard. Currently on BiPAP support ABDOMEN: Soft, nontender, nondistended with good bowel sounds. No peritoneal signs. No palpable organomegaly or masses. EXTREMITIES: Normal skin color and turgor. No cyanosis, rash, ulceration, clubbing or edema. Radial pedal pulses are 2/4 bilaterally. Randomly moves all extremities but not to simple commands purposefully not in a consistent manner - Labs CBC & Chem 7: 02/05/17 04:41 02/05/17 04:41 Labs: Abnormal Lab Results - Last 24 Hours (Table) 02/04/17 02/04/17 02/05/17 Range/Units 18:29 22:19 04:41 WBC 10.8 H (3.8-10.6) k/uL RBC 4.14 L (4.30-5.90) m/uL Neutrophils # 8.9 H (1.3-7.7) k/uL Chloride (98-107) mmol/L Glucose (74-99) mg/dL POC Glucose (mg/dL) 171 H 142 H (75-99) mg/dL Calcium (8.4-10.2) mg/dL 0402/05/17 02/05/17 Range/Units 04:41 07:25 12:07 WBC (3.8-10.6) k/uL RBC (4.30-5.90) m/uL Neutrophils # (1.3-7.7) k/uL Chloride 109 H (98-107) mmol/L Glucose 139 H (74-99) mg/dL POC Glucose (mg/dL) 145 H 133 H (75-99) mg/dL Calcium 8.1 L (8.4-10.2) mg/dL Assessment and Plan Plan: Impression 1 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 2 change in mental status, rule out postictal state. Rule out alcoholic encephalopathy/delirium tremens. 3 acute hypoxic respiratory failure 4 acute right lower lobe consolidation/aspiration pneumonia 5 CHF with ejection fraction of 20%, rule out alcoholic cardiomyopathy, rule out cocaine induced, rule out ischemic myopathy 6 hypothyroidism 7 history of marijuana and cocaine abuse 8 hypertension 9 bipolar disorder 10 chronic anxiety disorder 11 GERD #12 positive urine drug screen for cocaine and marijuana present on admission #13 present on admission febrile leukocytosis suspect sepsis not ruled out due to acute right lower lobe aspiration pneumonia Plan Continue recommendations per pulmonology service defer to Continue recommendations by neurology service defer to Follow up on repeat chest x-ray in the morning Seizure precautions IV fluid at 75 an hour monitor the response IV antibiotics Zosyn DVT and GI prophylaxis The above dictated assessment and findings were discussed with []. Impression and the plan of care have been dictated as directed. Sahara Hanson nurse practitioner acting as a scribe for for [].
--- NOTE | 2017-02-05 15:38 | PN ---
Mr. Valerio is a 61-year-old male with known history of alcohol and drug abuse history of seizures, who presented with recurrent seizure. Cardiology consultation was requested because of episode of tachycardia. He is more awake yet not following commands. Hemodynamically stable. His blood pressure is stable. There is no evidence of bradycardia. He had sinus tachycardia. He is on no pressors. He continues to be on the Lovenox subcu, Haloperidol, Losartan 50 mg daily and amlodipine. PHYSICAL EXAMINATION: His blood pressure running in the 120s with a heart rate in the one teens. LUNGS: Clear anteriorly. HEART: Regular rate rhythm, tachycardic. S1, S2, no S3, no rub. ABDOMEN: Soft, nontender. EXTREMITIES: No edema. Lab data revealed a creatinine 14 and 1.1. Potassium 4.8, hemoglobin of 13.4. IMPRESSION: 1. Seizure disorder. 2. History of chronic alcohol intake. 3. Sinus tachycardia. 4. History of hypertension. 5. Positive cocaine intake. RECOMMENDATION: We will review results of his echocardiogram. From the cardiac standpoint, there is no evidence of active cardiac abnormality at this time.
--- NOTE | 2017-02-05 16:10 | HP ---
DATE OF ADMISSION: 02/03/2017 CHIEF COMPLAINT: Grand mal seizure and status epilepticus. HISTORY OF PRESENT ILLNESS: This is another admissions for this 61-year-old white male. He has been on Depakote. He apparently had a seizure and EMS was summoned. He had seizures while he was en route to the hospital, as well as in the emergency room. He was treated and is postictal. There apparently was alcohol at the scene. REVIEW OF SYSTEMS: Unobtainable. Past medical history, family history and personal and social histories were all unobtainable and presumed unchanged. PHYSICAL EXAMINATION: VITAL SIGNS: Blood pressure 136/85 with a pulse of 104, respirations of 14. He is afebrile. GENERAL: Appeared to be lethargic. SKIN: Skin color is normal. Skin is warm and dry. Lymph nodes are not enlarged. Head, ears, eyes, nose, mouth, and throat were normal. Gaze conjugate. NECK: Supple. Neck veins not distended. CHEST: Clear. CARDIAC: Demonstrated normal sinus rhythm with occasional extra beats. No murmurs or extra sounds. ABDOMEN: Soft, nontender. EXTREMITIES: Normal. NEUROLOGICAL: Intact, except for his lethargy. IMPRESSION: 1. Grand mal seizure disorder, uncontrolled. 2. Frequent premature ventricular contractions. 3. Borderline personality. PLAN: 1. Bed rest. 2. IV fluids. 3. Seizure precautions. 4. Consult with cardiology and neurology.
--- NOTE | 2017-02-05 16:12 | PN ---
DATE OF SERVICE: 02/04/2017 CHIEF COMPLAINT: Grand mal seizure disorder. HISTORY OF PRESENT ILLNESS: This gentleman remains very lethargic and postictal. He is having occasional premature ventricular contractions, but no other sustained arrhythmic events. PHYSICAL EXAM: Vital signs are normal. CHEST: Clear. CARDIAC: Normal. ABDOMEN: Soft. NEUROLOGICAL: Intact except for lethargy. IMPRESSION: 1. Postictal depression. 2. Uncontrolled grand mal seizure disorder. 3. Premature ventricular contractions. PLAN: No change in program. Continue to monitor his neurologic state.
--- NOTE | 2017-02-05 16:33 | PN ---
DATE OF SERVICE: 02/05/2017 CHIEF COMPLAINT: Grand mal seizure and postictal depression. HISTORY OF PRESENT ILLNESS: The gentleman remains very lethargic. He is not improved significantly, but he has had no seizures. PHYSICAL EXAM: Vital signs are normal. Chest is clear. Cardiac exam is normal. The abdomen is soft. He has been very lethargic. IMPRESSION: Postictal depression. PLAN: Continue to monitor closely. Determine if his neurologic status we will continue to improve.
[2017-02-05 17:33] LABS: Glucose,Whole Blood 132 mg/dL (75-99)
[2017-02-05] MEDS ORDERED: PHENYTOIN SODIUM INJ 50 MG/ML 2 ML VIAL IVP SCH (21:00)
[2017-02-05] MEDS: PHENYTOIN SODIUM INJ 200 MG in SODIUM CHLORIDE 0.9% 100 ML IV SCH (21:16)
[2017-02-05] MEDS: QUEtiapine 50 MG TAB PO SCH (21:16)
[2017-02-05 22:07] LABS: Glucose,Whole Blood 121 mg/dL (75-99)
--- NOTE | 2017-02-05 22:50 | P.PN ---
Subjective This patient is a 61-year-old male who is seen today in the intensive care unit. Patient was admitted with multiple breakthrough seizures. He has a history of underlying seizure disorder. He is currently on a combination of Depakote and Dilantin for seizure prophylaxis. According to the ICU nursing staff he has not had any recurrent seizures since last night. His Depakote level this morning is 58.2. His Dilantin level is 6.7. He may require a bolus of Dilantin to get his Dilantin level into a therapeutic range. We had requested a stat EEG to be performed for this patient this morning. Apparently the monitoring tech was having difficulty as a patient is currently on BiPAP. We will need to attempt the EEG to see if there is any evidence of complex partial status epilepticus. EEG was completed today. We reviewed the EEG which reveals diffuse slowing. There is no evidence of active seizure focus or status epilepticus based on this EEG finding. Patient is currently on BiPAP. He does seem to be more awake and alert today as compared to yesterday. According to his who is at bedside his last seizure occurred about a month ago. His Dilantin level was slightly low today and we will be giving him a IV bolus and recheck his levels tomorrow morning. Plans are to consider weaning him off of the BiPAP later today. Patient also has low-grade temperature. Patient has been maintained on BiPAP most of the day. His anticonvulsant blood levels today indicate his Dilantin level to be slightly low at 8.8. Depakote level is therapeutic at 61.5. Patient will be given a bolus of Dilantin today. We will adjust his maintenance dose of Dilantin to 200 mg IV piggyback every 12 hours. As noted his EEG failed to reveal any evidence of status epilepticus. He does have a rather extensive alcohol abuse history and may have had alcohol withdrawal seizures as well. We will continue close neurological follow-up of this patient in the intensive care unit. He is to be maintained on his current anticonvulsant medications. His prognosis at this time remains very guarded. Objective - Vital Signs Vital signs: Vital Signs Temp 99.8 F H 02/05/17 20:00 Pulse 110 H 02/05/17 22:00 Resp 26 H 02/05/17 22:00 BP 122/82 02/05/17 22:00 Pulse Ox 91 L 02/05/17 22:00 Intake & Output 02/05/17 02/05/17 02/06/17 06:59 18:59 06:59 Intake Total 1200 1250 400 Output Total 820 60 0 Balance 380 1190 400 Weight 78.6 kg Intake: IV 1200 1150 400 Mvi, Adult No.4 with Vit 450 300 K 10 ml Thiamine 100 mg Folic Acid 1 mg In Sodium Chloride 0.9% 1,000 ml @ 75 mls/hr IV .BY DURATION [facility] Rx#: [id number] Phenytoin Sodium Inj 200 100 100 mg In Sodium Chloride 0.9 % 100 ml @ 200 mls/hr IV ONCE STA Rx#:[id number] Sodium Chloride 0.9% 1, 1200 600 000 ml @ 100 mls/hr IV . Q10H [facility] Rx#:[id number] Intake, IV Titration 100 Amount Piperacillin-Tazobactam 3 50 .375 gm In Dextrose/Water 1 50ml.bag @ 12.5 mls/hr IVPB Q8HR [facility] Rx#: [id number] Valproate Sodium 1,000 mg 50 In Sodium Chloride 0.9% 50 ml @ 50 mls/hr IVPB Q12HR [facility] Rx#:[id number] Output: Urine 820 60 0 Other: Voiding Method Indwelling Catheter Indwelling Catheter # Voids 2 2 - Exam Physical examination: PHYSICAL EXAMINATION: Patient is resting comfortably in bed. VITAL SIGNS: Blood pressure is [122/82]. Heart rate is [110]. Respiration is [26 ]. Temperature is [99.8]. HEENT: Head is atraumatic, neck is supple, there were no carotid bruits. CHEST: Lungs are clear to auscultation and percussion. CARDIAC: S1, S2 normal rate and rhythm. There is no murmur. ABDOMEN: Soft and nontender. Bowel sounds are present. EXTREMITIES: There is no pedal edema. Peripheral pulses are present. Neurological examination: Patient's neurological examination is unchanged from yesterday. Patient is laying in bed with BiPAP in place. He does seem to be more awake and alert today. He is moving all extremities. - Labs CBC & Chem 7: 02/05/17 04:41 02/05/17 04:41 Labs: Abnormal Lab Results - Last 24 Hours (Table) 02/05/17 02/05/17 02/05/17 Range/Units 04:41 04:41 07:25 WBC 10.8 H (3.8-10.6) k/uL RBC 4.14 L (4.30-5.90) m/uL Neutrophils # 8.9 H (1.3-7.7) k/uL Chloride 109 H (98-107) mmol/L Glucose 139 H (74-99) mg/dL POC Glucose (mg/dL) 145 H (75-99) mg/dL Calcium 8.1 L (8.4-10.2) mg/dL 02/05/17 02/05/17 02/05/17 Range/Units 12:07 17:31 22:05 WBC (3.8-10.6) k/uL RBC (4.30-5.90) m/uL Neutrophils # (1.3-7.7) k/uL Chloride (98-107) mmol/L Glucose (74-99) mg/dL POC Glucose (mg/dL) 133 H 132 H 121 H (75-99) mg/dL Calcium (8.4-10.2) mg/dL Assessment and Plan (1) Complex partial epilepsy Status: Acute Code(s): G40.209 - LOCAL-REL SYMPTC EPI W CMPLX PRT SEIZ,NOT NTRCT,W/O STAT EPI (2) Hypothyroidism Status: Acute Code(s): E03.9 - HYPOTHYROIDISM, UNSPECIFIED (3) Sepsis Status: Acute Code(s): A41.9 - SEPSIS, UNSPECIFIED ORGANISM (4) Drug abuse Status: Acute Code(s): F19.10 - OTHER PSYCHOACTIVE SUBSTANCE ABUSE, UNCOMPLICATED Plan: This patient is a 61-year-old male who is being followed in the intensive care unit for history of seizure disorder. His anticonvulsant blood levels were checked today. His Dilantin level was slightly low at 8.8. Depakote level is therapeutic at 61.5. Patient remains on BiPAP most of today. He has had no further seizures. His EEG was reviewed and failed to reveal any evidence of status epilepticus. He does have a history of alcohol abuse in the past. He is being monitored for alcohol withdrawal seizures at this time as well. Case was discussed today at bedside with his significant other. She was updated on his overall neurological findings. His overall prognosis at this time remains very guarded. We will continue to follow him closely in the intensive care unit.
[2017-02-06] MEDS: LORazepam 2 MG/ML SYRINGE IV PRN ×6 (00:18→20:11)
[2017-02-06] MEDS: PIPERACILLIN-TAZOBACTAM 3.375 GM in DEXTROSE/WATER 1 50ML.BAG IVPB SCH ×3 (01:47→17:34)
[2017-02-06] MEDS: 1: MVI, ADULT NO.4 WITH VIT K 10 ML, THIAMINE 100 MG, FOLIC ACID 1 MG in SODIUM CHLORIDE IV SCH ×8 (03:24→13:17)
[2017-02-06] MEDS: SODIUM CHLORIDE 0.9% 1,000 ML IV SCH ×2 (04:12→15:09)
[2017-02-06 05:39] LABS: Basophils % (A) 0 %; CH 32.6; CHCM 34.1; Eosinophils # (A) 0.1 k/uL (0-0.7); Eosinophils % (A) 0 %; HCT 40.3 % (39.0-53.0); HDW 2.33; HGB 13.7 gm/dL (13.0-17.5); Luc # (Auto) 0.19; Luc % (Auto) 2; Lymphocytes # (A) 1.2 k/uL (1.0-4.8); Lymphocytes % (A) 9 %; MCH 32.6 pg (25.0-35.0); MCHC 33.9 g/dL (31.0-37.0); MCV 96.1 fL (80.0-100.0); Mean Platelet Volume 8.5; Monocytes # (A) 0.9 k/uL (0-1.0); Monocytes % (A) 7 %; Neutrophils # (A) 10.2 k/uL (1.3-7.7); Neutrophils % (A) 82 %; RBC 4.19 m/uL (4.30-5.90); RDW 13.2 % (11.5-15.5); WBC 12.5 k/uL (3.8-10.6); WBC (Perox) 13.51
[2017-02-06 05:43] LABS: Anion Gap 10 mmol/L; Blood Urea Nitrogen 18 mg/dL (9-20); Calcium 8.5 mg/dL (8.4-10.2); Carbon Dioxide 23 mmol/L (22-30); Chloride 115 mmol/L (98-107); Glucose 97 mg/dL (74-99); Magnesium 2.1 mg/dL (1.6-2.3); Non-African American GFR(MDRD) >60 (>60 ml/min/1.73 sqM); Phosphorous 2.6 mg/dL (2.5-4.5); Potassium 4.4 mmol/L (3.5-5.1); Sodium 148 mmol/L (137-145)
[2017-02-06] MEDS: PANTOPRAZOLE 40 MG/10 ML VIAL IV SCH (08:06)
[2017-02-06] MEDS: LEVOTHYROXINE IVP 100 MCG/5 ML VIAL IV SCH (08:06)
[2017-02-06] MEDS: ENOXAPARIN 40 MG/0.4 ML SYRINGE SQ SCH (08:06)
[2017-02-06] MEDS: VALPROATE SODIUM 1,000 MG in SODIUM CHLORIDE 0.9% 50 ML IVPB SCH ×2 (08:09→20:38)
--- NOTE | 2017-02-06 08:31 | XR ---
EXAMINATION TYPE: XR chest 1V portable DATE OF EXAM: 02/06/2017 8:20 AM COMPARISON: 02/05/2017 INDICATION: Pneumonia, cough TECHNIQUE: Single frontal view of the chest is obtained. FINDINGS: The heart size is normal. The pulmonary vasculature is normal. Mild infiltrate is in the right lower lobe. This is improving from comparison. IMPRESSION: 1. Right lower lobe on improving infiltrate. Correlate for improving pneumonia. Continued follow-up i s recommended.
--- NOTE | 2017-02-06 08:32 | P.PN ---
Subjective 61-year-old male being seen in the intensive care unit this morning. Patient has used the BiPAP throughout the night. Continues to be on the CIWA protocol using Ativan and Haldol. Nursing reports patient continues to have intermittent episodes of confusion. Patient does not follow simple commands moves extremities at random does open eyes to verbal stimuli. Patient currently is being followed by pulmonary and neurology service recommendations reviewed noted and appreciated temp this morning 99.1 white count this morning 12.5 Objective - Vital Signs Vital signs: Vital Signs Temp 99.1 F 02/06/17 08:00 Pulse 111 H 02/06/17 08:00 Resp 24 02/06/17 08:00 BP 146/91 02/06/17 08:00 Pulse Ox 93 L 02/06/17 08:00 Intake & Output 02/05/17 02/06/17 02/06/17 18:59 06:59 18:59 Intake Total 1250 1225 75 Output Total 60 0 Balance 1190 1225 75 Weight 78.6 kg 79.5 kg Intake: IV 1150 1225 75 Mvi, Adult No.4 with Vit 450 675 K 10 ml Thiamine 100 mg Folic Acid 1 mg In Sodium Chloride 0.9% 1,000 ml @ 75 mls/hr IV .BY DURATION [facility] Rx#: [id number] Phenytoin Sodium Inj 200 100 100 mg In Sodium Chloride 0.9 % 100 ml @ 200 mls/hr IV ONCE STA Rx#:[id number] Sodium Chloride 0.9% 1, 600 400 75 000 ml @ 100 mls/hr IV . Q10H [facility] Rx#:[id number] Valproate Sodium 1,000 mg 50 In Sodium Chloride 0.9% 50 ml @ 50 mls/hr IVPB Q12HR [facility] Rx#:[id number] Intake, IV Titration 100 Amount Piperacillin-Tazobactam 3 50 .375 gm In Dextrose/Water 1 50ml.bag @ 12.5 mls/hr IVPB Q8HR [facility] Rx#: [id number] Valproate Sodium 1,000 mg 50 In Sodium Chloride 0.9% 50 ml @ 50 mls/hr IVPB Q12HR [facility] Rx#:[id number] Output: Urine 60 0 Other: Voiding Method Indwelling Catheter Indwelling Catheter # Voids 2 1 - Exam GENERAL APPEARANCE: 61-year-old male patient is alert, oriented to self only, in no acute distress. Does not consistently follow simple commands randomly moving all extremities randomly currently has BiPAP on. Will open eyes to verbal stimuli. Continues to have periods of restlessness VITAL SIGNS: Reviewed HEENT: Head is normocephalic and atraumatic. Pupils are equal and reactive. The nares are patent. Oropharynx is clear without lesions. NECK: Supple without lymphadenopathy. Traches midline. HEART: S1, S2. Regular rate and rhythm. Monitor sinus no murmur noted LUNGS: No crackles or wheezes are heard. Currently on BiPAP support ABDOMEN: Soft, nontender, nondistended with good bowel sounds. No peritoneal signs. No palpable organomegaly or masses. Incontinent a urine no stool EXTREMITIES: Normal skin color and turgor. No cyanosis, rash, ulceration, clubbing or edema. Radial pedal pulses are 2/4 bilaterally - Labs CBC & Chem 7: 02/06/17 05:05 02/06/17 05:05 Labs: Abnormal Lab Results - Last 24 Hours (Table) 02/05/17 02/05/17 02/05/17 Range/Units 12:07 17:31 22:05 WBC (3.8-10.6) k/uL RBC (4.30-5.90) m/uL Plt Count (150-450) k/uL Neutrophils # (1.3-7.7) k/uL Sodium (137-145) mmol/L Chloride (98-107) mmol/L POC Glucose (mg/dL) 133 H 132 H 121 H (75-99) mg/dL 02/06/17 02/06/17 Range/Units 05:05 05:05 WBC 12.5 H (3.8-10.6) k/uL RBC 4.19 L (4.30-5.90) m/uL Plt Count 145 L (150-450) k/uL Neutrophils # 10.2 H (1.3-7.7) k/uL Sodium 148 H (137-145) mmol/L Chloride 115 H (98-107) mmol/L POC Glucose (mg/dL) (75-99) mg/dL Assessment and Plan Plan: Impression 1 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 2 change in mental status, rule out postictal state. Rule out alcoholic encephalopathy/delirium tremens. 3 acute hypoxic respiratory failure 4 acute right lower lobe consolidation/aspiration pneumonia 5 CHF with ejection fraction of 20%, rule out alcoholic cardiomyopathy, rule out cocaine induced, rule out ischemic myopathy 6 hypothyroidism 7 history of marijuana and cocaine abuse 8 hypertension 9 bipolar disorder mood disorder 10 chronic anxiety disorder 11 GERD #12 positive urine drug screen for cocaine and marijuana present on admission #13 present on admission febrile leukocytosis suspect sepsis not ruled out due to acute right lower lobe aspiration pneumonia Plan Continue recommendations per pulmonology service defer to Continue recommendations by neurology service defer to Follow up on repeat chest x-ray in the morning Seizure precautions IV fluid at 75 an hour monitor the response IV antibiotics Zosyn DVT and GI prophylaxis Continue BiPAP support as ordered Continue ciwa protocol using Ativan and Haldol The above dictated assessment and findings were discussed with []. Impression and the plan of care have been dictated as directed. Sahara Hanson nurse practitioner acting as a scribe for for [].
[2017-02-06] MEDS: amLODIPine 5 MG TAB PO SCH (09:04)
[2017-02-06] MEDS: CHOLECALCIFEROL 1,000 UNIT TAB PO SCH (09:04)
[2017-02-06] MEDS: LOSARTAN 50 MG TAB PO SCH (09:04)
[2017-02-06] MEDS: ASPIRIN 325 MG TAB PO SCH (09:04)
--- NOTE | 2017-02-06 09:57 | P.PN ---
Subjective This patient is a 61-year-old right-handed white male who has underlying history of seizure disorder and hypertension. Apparently he was having a seizure at home which lasted about 2 minutes in duration. He had a second seizure in the emergency room. Patient has a history of underlying seizure disorder for which she has been taking Depakote. His seizure in the emergency room lasted about 1 minute in duration with some postictal confusion. Patient was sent for computed tomography scan of the brain which revealed no acute abnormality. His drug screen did come back positive for marijuana as well as cocaine. He was given Ativan in the emergency room and then transferred to [facility]. An A Team Code was initiated as a patient went into a episode of snorous breathing and possible recurrent seizure. He was started on IV Dilantin and transferred to the intensive care unit. Patient was given another dose of Ativan in the ICU and his Dilantin was initiated. We switched the patient to IV Depacon and IV Dilantin for further seizure management. We recommended placing him on IV Depacon thousand milligrams IVP he back every 12 hours. He is currently on Dilantin with a maintenance dose of 100 mg IV piggyback every 8 hours. The patient remains lethargic and obtunded in the intensive care unit. He has had no further active seizure noted by the ICU nursing staff. Patient was noted in the ER to have left lateral eye gaze. This suggests seizure focus emanating from the right hemisphere. Patient continues to remain postictal. It is unclear whether the patient has been having frequent breakthrough seizures Over the past 24hours the patient has been in the intensive care unit, and the patient was not witnessed to have any seizure. His current antiepileptic medication includes a combination of Dilantin and valproic acid. The Dilantin level is at 8.8 and the patient will receive another 200 mg of IV Dilantin and his maintenance dose will be 200 mg IV every 12 hours. He is also on valproic acid and the level was 61.5. The patient is moving all 4 extremities. He occasionally gets confused and thrashes. He had required Ativan during this ICU stay and his last Ativan dose was 1 milligram around 8am this morning. There is a concern that the patient is also withdrawing from alcohol knowing that he has also history of alcoholism and he is currently on the CIME protocol. Furthermore, the patient had an echocardiogram this morning that showed a poor LV function with ejection fraction of 20% and there is mild aortic sclerosis and mild tricuspid and mitral regurgitation. There is no evidence of any pulmonary hypertension. No evidence of any pericardial effusion. Chest x-ray remains abnormal with a large right lower lobe consolidation which probably is a representation of an underlying aspiration pneumonia..Furthermore, the patient was having labored breathing earlier this morning in conjunction with this right lower lobe findings and based on that the patient was placed on a BiPAP with settings of 10 and 500 FiO2 of 70%. The patient is much more comfortable while being on a BiPAP treatment at this point. Breathing is less labored. On 02/06/2017 I'm seeing this patient in follow-up. The patient is currently on a BiPAP at a pressure of 12/8 cm and an FiO2 of 50%. He is not snoring and is quite synchronous with the BiPAP machine. His chest x-ray shows improvement in the right lower lobe pulmonary infiltrates which is felt to be related to an aspiration pneumonia. I started this patient IV Zosyn. Neurologically, the patient is not having any seizure activity. He is on a combination of Depakote and Dilantin. Levels need to be rechecked and neurologist on the case. Meanwhile we confronted the patient is an alcoholic. His symptoms were also suggestive of delirium tremens and the patient is being treated with Ativan and overnight he received a total of 8 mg of Ativan. This morning it is quite comfortable and somnolent and sleepy. He did wake up earlier this morning and he was given a brief period off the BiPAP. He answered some simple questions and follows some commands. He seems to be much more appropriate compared to yesterday. Neurologic exam remains nonfocal. No chills. No fever. No nausea. No vomiting. The patient is still nothing by mouth for now. He did pass also a bedside swallow evaluation. Objective - Vital Signs Vital signs: Vital Signs Temp 99.1 F 02/06/17 08:00 Pulse 112 H 02/06/17 09:00 Resp 26 H 02/06/17 09:00 BP 96/65 02/06/17 09:00 Pulse Ox 97 02/06/17 09:00 Intake & Output 02/05/17 02/06/17 02/06/17 18:59 06:59 18:59 Intake Total 1250 1225 200 Output Total 60 0 Balance 1190 1225 200 Weight 78.6 kg 79.5 kg 79.5 kg Intake: IV 1150 1225 125 Mvi, Adult No.4 with Vit 450 675 K 10 ml Thiamine 100 mg Folic Acid 1 mg In Sodium Chloride 0.9% 1,000 ml @ 75 mls/hr IV .BY DURATION ANJELICA Rx#: [id number] Phenytoin Sodium Inj 200 100 100 mg In Sodium Chloride 0.9 % 100 ml @ 200 mls/hr IV ONCE STA Rx#:[id number] Sodium Chloride 0.9% 1, 600 400 75 000 ml @ 100 mls/hr IV . Q10H ANJELICA Rx#:[id number] Valproate Sodium 1,000 mg 50 50 In Sodium Chloride 0.9% 50 ml @ 50 mls/hr IVPB Q12HR ANJELICA Rx#:[id number] Intake, IV Titration 100 Amount Piperacillin-Tazobactam 3 50 .375 gm In Dextrose/Water 1 50ml.bag @ 12.5 mls/hr IVPB Q8HR ANJELICA Rx#: [id number] Valproate Sodium 1,000 mg 50 In Sodium Chloride 0.9% 50 ml @ 50 mls/hr IVPB Q12HR ANJELICA Rx#:[id number] Lipid 75 Sodium Chloride 0.9% 1, 75 000 ml @ 100 mls/hr IV . Q10H [facility] Rx#:[id number] Output: Urine 60 0 Other: Voiding Method Indwelling Catheter Indwelling Catheter Diaper # Voids 2 1 - Exam The patient is currently on a BiPAP at a pressure of 10 over 5 cm of water and FiO2 of 70%. Is tolerating a full face BiPAP mask. Not using excessive muscle breathing. Head exam was generally normal. There was no scleral icterus or corneal arcus. Mucous membranes were moist.Neck was supple and without jugular venous distension, thyromegaly, or carotid bruits. Carotids were easily palpable bilaterally. There was no adenopathy.Cardiac exam revealed the PMI to be normally situated and sized. The rhythm was regular and no extrasystoles were noted during several minutes of auscultation. The first and second heart sounds were normal and physiologic splitting of the second heart sound was noted. There were no murmurs, rubs, clicks, or gallops. Lungs sounds are diminished in the right lung base along with some right basilar crackles.Abdominal exam revealed normal bowel sounds. The abdomen was soft, non- tender, and without masses, organomegaly, or appreciable enlargement of the abdominal aorta.Examination of the extremities revealed easily palpable radial, femoral and pedal pulses. There was no cyanosis, clubbing or edema. Neurologically the patient will undergo 4 extremities. He is quite strong. He cannot follow commands consistently and his level of focus and attention is limited to none as the patient can easily gets distracted and does not follow particular or complex commands. Swallow needs to be checked knowing that the patient has no gag reflex with MB elicited on today's evaluation. No focal neurological deficits at this point. - Labs CBC & Chem 7: 02/06/17 05:05 02/06/17 05:05 Labs: Abnormal Lab Results - Last 24 Hours (Table) 02/05/17 02/05/17 02/05/17 Range/Units 12:07 17:31 22:05 WBC (3.8-10.6) k/uL RBC (4.30-5.90) m/uL Plt Count (150-450) k/uL Neutrophils # (1.3-7.7) k/uL Sodium (137-145) mmol/L Chloride (98-107) mmol/L POC Glucose (mg/dL) 133 H 132 H 121 H (75-99) mg/dL 02/06/17 02/06/17 Range/Units 05:05 05:05 WBC 12.5 H (3.8-10.6) k/uL RBC 4.19 L (4.30-5.90) m/uL Plt Count 145 L (150-450) k/uL Neutrophils # 10.2 H (1.3-7.7) k/uL Sodium 148 H (137-145) mmol/L Chloride 115 H (98-107) mmol/L POC Glucose (mg/dL) (75-99) mg/dL Assessment and Plan Plan: Assessment 1 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 It is likely that the patient was having alcoholic seizures or alcohol-induced seizures or alcohol even lowering the threshold of his chronic seizure disorder/ epilepsy. As such the patient is on a combination of Depakote and Dilantin. He is seizure free for the time being. He may be also recovering from a postictal state. 2 change in mental status, rule out postictal state. Rule out alcoholic encephalopathy/delirium tremens. The patient is being treated for both. His seizures are under good control. The patient on Ativan for symptoms of delirium tremens. 3 acute hypoxic respiratory failure, currently on BiPAP at a pressure of 12/8 cm of water 4 acute right lower lobe consolidation/aspiration pneumonia 5 CHF with ejection fraction of 20%, rule out alcoholic cardiomyopathy, rule out cocaine induced, rule out ischemic myopathy 6 hypothyroidism 7 history of marijuana and cocaine abuse 8 hypertension 9 bipolar disorder 10 chronic anxiety disorder 11 GERD 12 alcoholism Plan Continue IV Zosyn for an aspiration pneumonia of the right lung. Chest x-ray is improving and the repeat chest x-ray we'll obtain for tomorrow.Meanwhile the patient will be supported by BiPAP at the same settings. Proceed with aspiration precautions. Keep the patient nothing by mouth for another 24 hours. IV fluids with MVI. Ativan for symptoms of delirium tremens. Repeat the anticonvulsant levels including Dilantin and Depakote in a.m. Neurologist on the case. Echocardiogram results were noted. We'll continue to follow.
[2017-02-06] MEDS: PHENYTOIN SODIUM INJ 200 MG in SODIUM CHLORIDE 0.9% 100 ML IV SCH ×2 (10:26→21:44)
[2017-02-06] MEDS ORDERED: SODIUM CHLORIDE 0.9% 1,000 ML BAG ONE (13:17)
[2017-02-06] MEDS: HALOPERIDOL LACTATE 5 MG/ML 1 ML VIAL IVP PRN (15:54)
[2017-02-06 16:04] LABS: Mis test requested (Blood) B Cell Flow Cyto
--- NOTE | 2017-02-06 16:31 | PN ---
Mr. Valerio is a 61-year-old male who presented with seizure and change in mental status. He had an echocardiogram that showed a severely impaired left ventricular systolic function that could be alcoholic cardiomyopathy. Patient is on the BiPAP, not very responsive. He had abnormal chest x-rays raising the possibility of aspiration pneumonia. He continues to be at this time on aspirin once a day. PHYSICAL EXAMINATION: Blood pressure 120/80 with a heart in the low 100. LUNGS: Clear anteriorly. HEART: S1, S2 but no rub. ABDOMEN: Soft, positive bowel sounds. No organomegaly. EXTREMITIES: Chronic skin changes, but no edema. Lab data revealed BUN and creatinine of 18 and 1.0, potassium 4.4. Hemoglobin of 13.7. White blood cell of 12.5. IMPRESSION: 1. Seizure activity was complex partial seizures, possible alcoholic seizure. 2. 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 3. History of drug abuse. 4. Possible aspiration pneumonia. 5. History of hypertension. RECOMMENDATION: From the cardiac standpoint, I will stop the amlodipine at this time. I will initiate treatment with a low dose beta daiana and if his blood pressure is stable, then I will add an WOODY inhibitor. Depending on his progress, further recommendations will be made.
[2017-02-06] MEDS: QUEtiapine 50 MG TAB PO SCH (20:06)
[2017-02-06] MEDS: METOPROLOL TARTRATE 25 MG TAB PO SCH (20:09)
--- NOTE | 2017-02-06 20:34 | P.PN ---
Subjective This patient is a 61-year-old male who is seen today in the intensive care unit. Patient was admitted with multiple breakthrough seizures. He has a history of underlying seizure disorder. He is currently on a combination of Depakote and Dilantin for seizure prophylaxis. According to the ICU nursing staff he has not had any recurrent seizures since last night. His Depakote level this morning is 58.2. His Dilantin level is 6.7. He may require a bolus of Dilantin to get his Dilantin level into a therapeutic range. We had requested a stat EEG to be performed for this patient this morning. Apparently the process control tech was having difficulty as a patient is currently on BiPAP. We will need to attempt the EEG to see if there is any evidence of complex partial status epilepticus. EEG was completed today. We reviewed the EEG which reveals diffuse slowing. There is no evidence of active seizure focus or status epilepticus based on this EEG finding. Patient is currently on BiPAP. He does seem to be more awake and alert today as compared to yesterday. According to his who is at bedside his last seizure occurred about a month ago. His Dilantin level was slightly low today and we will be giving him a IV bolus and recheck his levels tomorrow morning. Plans are to consider weaning him off of the BiPAP later today. Patient also has low-grade temperature. Patient has been maintained on BiPAP most of the day. His anticonvulsant blood levels today indicate his Dilantin level to be slightly low at 10.3. Depakote level is therapeutic at 61.5. We will adjust his maintenance dose of Dilantin to 200 mg IV piggyback every 12 hours. As noted his EEG failed to reveal any evidence of status epilepticus. He does have a rather extensive alcohol abuse history and may have had alcohol withdrawal seizures as well. Patient was able to come off of his BiPAP most of today. According to the ICU nursing staff he still remains agitated at times. He can become somewhat combative is well. His Dilantin level today is 10.3. His Depakote level done yesterday was therapeutic at 61.5. We will continue close neurological follow-up of this patient in the intensive care unit. He is to be maintained on his current anticonvulsant medications. His prognosis at this time remains very guarded. Objective - Vital Signs Vital signs: Vital Signs Temp 98.9 F 02/06/17 16:00 Pulse 113 H 02/06/17 16:00 Resp 25 H 02/06/17 16:00 BP 123/76 02/06/17 16:00 Pulse Ox 99 02/06/17 16:00 Intake & Output 02/05/17 02/06/17 02/06/17 18:59 06:59 18:59 Intake Total 1250 2236.2 825 Output Total 60 0 500 Balance 1190 2236.2 325 Weight 78.6 kg 79.5 kg 79.5 kg Intake: IV 1150 1225 825 Mvi, Adult No.4 with Vit 450 675 225 K 10 ml Thiamine 100 mg Folic Acid 1 mg In Sodium Chloride 0.9% 1,000 ml @ 75 mls/hr IV .BY DURATION ANJELICA Rx#: [id number] Phenytoin Sodium Inj 200 100 100 100 mg In Sodium Chloride 0.9 % 100 ml @ 200 mls/hr IV ONCE STA Rx#:[id number] Sodium Chloride 0.9% 1, 600 400 450 000 ml @ 100 mls/hr IV . Q10H ANJELICA Rx#:[id number] Valproate Sodium 1,000 mg 50 50 In Sodium Chloride 0.9% 50 ml @ 50 mls/hr IVPB Q12HR ANJELICA Rx#:[id number] Intake, IV Titration 100 1011.2 Amount Mvi, Adult No.4 with Vit 1011.2 K 10 ml Thiamine 100 mg Folic Acid 1 mg In Sodium Chloride 0.9% 1,000 ml @ 75 mls/hr IV .BY DURATION ANJELICA Rx#: [id number] Piperacillin-Tazobactam 3 50 .375 gm In Dextrose/Water 1 50ml.bag @ 12.5 mls/hr IVPB Q8HR ANJELICA Rx#: [id number] Valproate Sodium 1,000 mg 50 In Sodium Chloride 0.9% 50 ml @ 50 mls/hr IVPB Q12HR ANJELICA Rx#:[id number] Output: Urine 60 0 500 Other: Voiding Method Indwelling Catheter Indwelling Catheter Diaper # Voids 2 1 2 - Exam Physical examination: PHYSICAL EXAMINATION: Patient is resting comfortably in bed. VITAL SIGNS: Blood pressure is [123/76]. Heart rate is [114]. Respiration is [25 ]. Temperature is [98.9]. HEENT: Head is atraumatic, neck is supple, there were no carotid bruits. CHEST: Lungs are clear to auscultation and percussion. CARDIAC: S1, S2 normal rate and rhythm. There is no murmur. ABDOMEN: Soft and nontender. Bowel sounds are present. EXTREMITIES: There is no pedal edema. Peripheral pulses are present. Neurological examination: Patient's neurological examination is unchanged from yesterday. Patient is laying in bed with BiPAP in place. He does seem to be more awake and alert today. He is moving all extremities. - Labs CBC & Chem 7: 02/06/17 05:05 02/06/17 05:05 Labs: Abnormal Lab Results - Last 24 Hours (Table) 02/05/17 02/06/17 02/06/17 Range/Units 22:05 05:05 05:05 WBC 12.5 H (3.8-10.6) k/uL RBC 4.19 L (4.30-5.90) m/uL Plt Count 145 L (150-450) k/uL Neutrophils # 10.2 H (1.3-7.7) k/uL Sodium 148 H (137-145) mmol/L Chloride 115 H (98-107) mmol/L POC Glucose (mg/dL) 121 H (75-99) mg/dL Assessment and Plan (1) Complex partial epilepsy Status: Acute Code(s): G40.209 - LOCAL-REL SYMPTC EPI W CMPLX PRT SEIZ,NOT NTRCT,W/O STAT EPI (2) Hypothyroidism Status: Acute Code(s): E03.9 - HYPOTHYROIDISM, UNSPECIFIED (3) Sepsis Status: Acute Code(s): A41.9 - SEPSIS, UNSPECIFIED ORGANISM (4) Drug abuse Status: Acute Code(s): F19.10 - OTHER PSYCHOACTIVE SUBSTANCE ABUSE, UNCOMPLICATED Plan: This patient is a 61-year-old male being evaluated for seizure disorder. He is currently on Depakote and Dilantin for seizure management. His anticonvulsant blood levels were checked today and are therapeutic. He shouldn't has been able to come off of his BiPAP machine most of today. He has intermittent episodes of confusion. His EEG failed to reveal any evidence of status epilepticus or seizure focus. We will continue him on his current anticonvulsant medications. Patient does have history of underlying bipolar disorder. This may be contributing to some of his agitation. We will continue close neurological follow-up with this patient in the intensive care unit. His overall prognosis at this time remains very guarded.
[2017-02-07] MEDS: PIPERACILLIN-TAZOBACTAM 3.375 GM in DEXTROSE/WATER 1 50ML.BAG IVPB SCH ×3 (00:13→17:51)
[2017-02-07] MEDS: SODIUM CHLORIDE 0.9% 1,000 ML IV SCH (01:18)
[2017-02-07] MEDS: 1: MVI, ADULT NO.4 WITH VIT K 10 ML, THIAMINE 100 MG, FOLIC ACID 1 MG in SODIUM CHLORIDE IV SCH ×4 (01:18)
[2017-02-07] MEDS: HALOPERIDOL LACTATE 5 MG/ML 1 ML VIAL IVP PRN ×2 (01:25→05:49)
[2017-02-07] MEDS: LORazepam 2 MG/ML SYRINGE IV PRN ×10 (02:22→22:55)
[2017-02-07 06:01] LABS: Basophils % (A) 0 %; CH 31.6; CHCM 32.7; Eosinophils # (A) 0.4 k/uL (0-0.7); Eosinophils % (A) 3 %; HCT 42.5 % (39.0-53.0); HDW 2.43; HGB 13.9 gm/dL (13.0-17.5); Luc # (Auto) 0.23; Luc % (Auto) 2; Lymphocytes % (A) 9 %; MCH 31.7 pg (25.0-35.0); MCHC 32.7 g/dL (31.0-37.0); MCV 96.9 fL (80.0-100.0); Mean Platelet Volume 7.9; Monocytes # (A) 0.6 k/uL (0-1.0); Monocytes % (A) 6 %; Neutrophils # (A) 8.8 k/uL (1.3-7.7); Neutrophils % (A) 80 %; RBC 4.38 m/uL (4.30-5.90); RDW 13.2 % (11.5-15.5); WBC 11.1 k/uL (3.8-10.6); WBC (Perox) 11.62
[2017-02-07 06:08] LABS: Anion Gap 12 mmol/L; Calcium 8.5 mg/dL (8.4-10.2); Carbon Dioxide 21 mmol/L (22-30); Chloride 118 mmol/L (98-107); Glucose 105 mg/dL (74-99); Non-African American GFR(MDRD) >60 (>60 ml/min/1.73 sqM); Sodium 151 mmol/L (137-145)
[2017-02-07 06:20] LABS: Phosphorous 2.9 mg/dL (2.5-4.5)
[2017-02-07 06:21] LABS: Blood Urea Nitrogen 19 mg/dL (9-20)
--- NOTE | 2017-02-07 07:26 | XR ---
EXAMINATION TYPE: XR chest 1V portable DATE OF EXAM: 02/07/2017 6:55 AM Comparison: 02/06/2017 Clinical History: 61-year-old male pneumonia Findings: The heart is borderline enlarged. Interstitial densities are increased in the interval and opacity in the right lower lung is more confluent in appearance. No significant pleural effusion. Impression: 1. Borderline cardiomegaly and slightly increased interstitial densities. Correlate for developing CH F. 2. Confluent right lower lung opacity is slightly increased and could represent pneumonia or an area of more confluent pulmonary edema.
[2017-02-07] MEDS: PHENYTOIN SODIUM INJ 200 MG in SODIUM CHLORIDE 0.9% 100 ML IV SCH (09:14)
[2017-02-07] MEDS: LOSARTAN 50 MG TAB PO SCH (09:29)
[2017-02-07] MEDS: METOPROLOL TARTRATE 25 MG TAB PO SCH ×3 (09:29→21:54)
[2017-02-07] MEDS: ASPIRIN 325 MG TAB PO SCH (09:29)
[2017-02-07] MEDS: VENLAFAXINE HCL ER 75 MG CAP PO SCH (09:29)
[2017-02-07] MEDS: CHOLECALCIFEROL 1,000 UNIT TAB PO SCH (09:29)
[2017-02-07] MEDS: ENOXAPARIN 40 MG/0.4 ML SYRINGE SQ SCH (09:34)
[2017-02-07] MEDS: LEVOTHYROXINE IVP 100 MCG/5 ML VIAL IV SCH (09:34)
[2017-02-07] MEDS: PANTOPRAZOLE 40 MG/10 ML VIAL IV SCH (09:34)
[2017-02-07] MEDS: VALPROATE SODIUM 1,000 MG in SODIUM CHLORIDE 0.9% 50 ML IVPB SCH ×2 (09:58→20:46)
[2017-02-07] MEDS ORDERED: DEXTROSE 5% IN WATER 1,000 ML IV SCH (10:45)
[2017-02-07] MEDS ORDERED: DEXTROSE 5% IN WATER 1,000 ML with MVI, ADULT NO.4 WITH VIT K 10 ML, THIAMINE 100 MG, F... IV SCH ×4 (10:45)
--- NOTE | 2017-02-07 11:21 | P.PN ---
Subjective This patient is a 61-year-old right-handed white male who has underlying history of seizure disorder and hypertension. Apparently he was having a seizure at home which lasted about 2 minutes in duration. He had a second seizure in the emergency room. Patient has a history of underlying seizure disorder for which she has been taking Depakote. His seizure in the emergency room lasted about 1 minute in duration with some postictal confusion. Patient was sent for computed tomography scan of the brain which revealed no acute abnormality. His drug screen did come back positive for marijuana as well as cocaine. He was given Ativan in the emergency room and then transferred to [facility]. An A Team Code was initiated as a patient went into a episode of snorous breathing and possible recurrent seizure. He was started on IV Dilantin and transferred to the intensive care unit. Patient was given another dose of Ativan in the ICU and his Dilantin was initiated. We switched the patient to IV Depacon and IV Dilantin for further seizure management. We recommended placing him on IV Depacon thousand milligrams IVP he back every 12 hours. He is currently on Dilantin with a maintenance dose of 100 mg IV piggyback every 8 hours. The patient remains lethargic and obtunded in the intensive care unit. He has had no further active seizure noted by the ICU nursing staff. Patient was noted in the ER to have left lateral eye gaze. This suggests seizure focus emanating from the right hemisphere. Patient continues to remain postictal. It is unclear whether the patient has been having frequent breakthrough seizures Over the past 24hours the patient has been in the intensive care unit, and the patient was not witnessed to have any seizure. His current antiepileptic medication includes a combination of Dilantin and valproic acid. The Dilantin level is at 8.8 and the patient will receive another 200 mg of IV Dilantin and his maintenance dose will be 200 mg IV every 12 hours. He is also on valproic acid and the level was 61.5. The patient is moving all 4 extremities. He occasionally gets confused and thrashes. He had required Ativan during this ICU stay and his last Ativan dose was 1 milligram around 8am this morning. There is a concern that the patient is also withdrawing from alcohol knowing that he has also history of alcoholism and he is currently on the CINJ protocol. Furthermore, the patient had an echocardiogram this morning that showed a poor LV function with ejection fraction of 20% and there is mild aortic sclerosis and mild tricuspid and mitral regurgitation. There is no evidence of any pulmonary hypertension. No evidence of any pericardial effusion. Chest x-ray remains abnormal with a large right lower lobe consolidation which probably is a representation of an underlying aspiration pneumonia..Furthermore, the patient was having labored breathing earlier this morning in conjunction with this right lower lobe findings and based on that the patient was placed on a BiPAP with settings of 10 and 500 FiO2 of 70%. The patient is much more comfortable while being on a BiPAP treatment at this point. Breathing is less labored. On 02/06/2017 I'm seeing this patient in follow-up. The patient is currently on a BiPAP at a pressure of 12/8 cm and an FiO2 of 50%. He is not snoring and is quite synchronous with the BiPAP machine. His chest x-ray shows improvement in the right lower lobe pulmonary infiltrates which is felt to be related to an aspiration pneumonia. I started this patient IV Zosyn. Neurologically, the patient is not having any seizure activity. He is on a combination of Depakote and Dilantin. Levels need to be rechecked and neurologist on the case. Meanwhile we confronted the patient is an alcoholic. His symptoms were also suggestive of delirium tremens and the patient is being treated with Ativan and overnight he received a total of 8 mg of Ativan. This morning it is quite comfortable and somnolent and sleepy. He did wake up earlier this morning and he was given a brief period off the BiPAP. He answered some simple questions and follows some commands. He seems to be much more appropriate compared to yesterday. Neurologic exam remains nonfocal. No chills. No fever. No nausea. No vomiting. The patient is still nothing by mouth for now. He did pass also a bedside swallow evaluation. The patient is seen again today 01/07/2017 in follow-up in the intensive care unit. He was quite restless and agitated last night requiring several doses of Haldol and Ativan. He has been off the BiPAP and is maintaining good O2 saturations in the 90s on 5 L/m per nasal cannula. He does have elevated temperature today currently on 100.7. He remains on Zosyn. He is difficult to arouse this morning secondary to sedation. He does respond to loud verbal stimuli and answering questions appropriately. He is moving all fours. He did pass a swallow evaluation neurology is on the case regarding his history of seizures. No seizure activity throughout the evening. Objective - Vital Signs Vital signs: Vital Signs Temp 99.7 F H 02/07/17 08:00 Pulse 100 02/07/17 10:00 Resp 22 02/07/17 10:00 BP 98/55 02/07/17 10:00 Pulse Ox 94 L 02/07/17 10:00 Intake & Output 02/06/17 02/07/17 02/07/17 18:59 06:59 18:59 Intake Total 975 1350.0 450 Output Total 800 500 200 Balance 175 850.0 250 Weight 79.5 kg 79.9 kg 79.9 kg Intake: IV 975 1200 450 Mvi, Adult No.4 with Vit 375 650 K 10 ml Thiamine 100 mg Folic Acid 1 mg In Sodium Chloride 0.9% 1,000 ml @ 75 mls/hr IV .BY DURATION ANJELICA Rx#: [id number] Phenytoin Sodium Inj 200 100 100 mg In Sodium Chloride 0.9 % 100 ml @ 200 mls/hr IV ONCE STA Rx#:[id number] Sodium Chloride 0.9% 1, 450 500 300 000 ml @ 100 mls/hr IV . Q10H ANJELICA Rx#:[id number] Valproate Sodium 1,000 mg 50 50 50 In Sodium Chloride 0.9% 50 ml @ 50 mls/hr IVPB Q12HR ANJ[facility] Rx#:[id number] Intake, IV Titration 150.0 Amount Phenytoin Sodium Inj 200 100 mg In Sodium Chloride 0.9 % 100 ml @ 200 mls/hr IV Q12HR ANJELICA Rx#:[id number] Piperacillin-Tazobactam 3 50.0 .375 gm In Dextrose/Water 1 50ml.bag @ 12.5 mls/hr IVPB Q8HR ANJELICA Rx#: [id number] Oral 0 Output: Urine 800 500 200 Other: Voiding Method Diaper Diaper Diaper # Voids 2 1 2 - Exam Head exam was generally normal. There was no scleral icterus or corneal arcus. Mucous membranes were moist.Neck was supple and without jugular venous distension, thyromegaly, or carotid bruits. Carotids were easily palpable bilaterally. There was no adenopathy.Cardiac exam revealed the PMI to be normally situated and sized. The rhythm was regular and no extrasystoles were noted during several minutes of auscultation. The first and second heart sounds were normal and physiologic splitting of the second heart sound was noted. There were no murmurs, rubs, clicks, or gallops. Lungs sounds are diminished in the right lung base along with some right basilar crackles.Abdominal exam revealed normal bowel sounds. The abdomen was soft, non-tender, and without masses, organomegaly, or appreciable enlargement of the abdominal aorta.Examination of the extremities revealed easily palpable radial, femoral and pedal pulses. There was no cyanosis, clubbing or edema. Neurologically the patient will undergo 4 extremities. He is quite strong. He cannot follow commands consistently and his level of focus and attention is limited to none as the patient can easily gets distracted and does not follow particular or complex commands. Swallow needs to be checked knowing that the patient has no gag reflex with MB elicited on today's evaluation. No focal neurological deficits at this point. - Labs CBC & Chem 7: 02/07/17 05:41 02/07/17 05:41 Labs: Abnormal Lab Results - Last 24 Hours (Table) 02/07/17 02/07/17 Range/Units 05:41 05:41 WBC 11.1 H (3.8-10.6) k/uL Plt Count 120 L (150-450) k/uL Neutrophils # 8.8 H (1.3-7.7) k/uL Sodium 151 H (137-145) mmol/L Chloride 118 H (98-107) mmol/L Carbon Dioxide 21 L (22-30) mmol/L Glucose 105 H (74-99) mg/dL Assessment and Plan Plan: Assessment 1 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 It is likely that the patient was having alcoholic seizures or alcohol-induced seizures or alcohol even lowering the threshold of his chronic seizure disorder/ epilepsy. As such the patient is on a combination of Depakote and Dilantin. He is seizure free for the time being. He may be also recovering from a postictal state. 02/07/2017 the patient did not have any further seizure activity last evening. 2 change in mental status, rule out postictal state. Rule out alcoholic encephalopathy/delirium tremens. The patient is being treated for both. His seizures are under good control. The patient on Ativan for symptoms of delirium tremens. 02/07/2017 the patient was restless and agitated throughout the evening and did require alternating doses between Haldol and Ativan. 3 acute hypoxic respiratory failure, currently on BiPAP at a pressure of 12/8 cm of water. The patient has improved and is currently on 5 L/m per nasal cannula. 4 acute right lower lobe consolidation/aspiration pneumonia 5 CHF with ejection fraction of 20%, rule out alcoholic cardiomyopathy, rule out cocaine induced, rule out ischemic myopathy 6 hypothyroidism 7 history of marijuana and cocaine abuse 8 hypertension 9 bipolar disorder 10 chronic anxiety disorder 11 GERD 12 alcoholism #13 Hypernatremia, current sodium 151. Plan: The patient was seen and evaluated by Dr. Robles. His chest x-ray and labs were reviewed. We'll continue with IV Zosyn. He is hypernatremic and will changes 0.9 normal saline to D5W. We'll repeat his labs in the a.m. As he becomes more awake and alert will advance his diet. We'll continue to monitor him here closely in the intensive care unit. Appreciate input from neurology. We'll continue to follow.
--- NOTE | 2017-02-07 14:52 | PN ---
Mr. Valerio is a patient with alcoholism and also having some withdrawal. He is tachycardic. Denies chest pain, unable to make any meaningful conversation. Will increase the beta daiana, cut down the aspirin to 81 mg daily. Continue sedation. Vital signs are stable. Blood pressure 138/70, pulse rate is about 110 per minute. S1, S2 heard normally. Short systolic murmur noted. Lungs reveal diminished air entry. Rest of physical exam is unchanged. Prognosis remains guarded in this patient with multiple medical problems including acute alcoholism and withdrawal.
--- NOTE | 2017-02-07 15:56 | P.PN ---
Subjective 61-year-old being seen in the intensive care unit this morning sitter at the bedside. Patient is restless. Patient reportedly was agitated last night did require several doses of Ativan and Haldol. Currently is off BiPAP currently is on a nasal cannula keeping a sat greater than 90%. Patient is randomly moving all 4 extremities. Patients being followed by multiple consulting physicians recommendations noted appreciated and reviewed Objective - Vital Signs Vital signs: Vital Signs Temp 97.7 F 02/07/17 12:00 Pulse 110 H 02/07/17 15:00 Resp 24 02/07/17 15:00 BP 146/92 02/07/17 15:00 Pulse Ox 81 L 02/07/17 15:00 Intake & Output 02/06/17 02/07/17 02/07/17 18:59 06:59 18:59 Intake Total 975 1350.0 500.0 Output Total 800 500 200 Balance 175 850.0 300.0 Weight 79.5 kg 79.9 kg 79.9 kg Intake: IV 975 1200 500.0 Mvi, Adult No.4 with Vit 375 650 K 10 ml Thiamine 100 mg Folic Acid 1 mg In Sodium Chloride 0.9% 1,000 ml @ 75 mls/hr IV .BY DURATION ANJELICA Rx#: [id number] Phenytoin Sodium Inj 200 100 100 mg In Sodium Chloride 0.9 % 100 ml @ 200 mls/hr IV ONCE STA Rx#:[id number] Piperacillin-Tazobactam 3 50.0 .375 gm In Dextrose/Water 1 50ml.bag @ 12.5 mls/hr IVPB Q8HR [facility] Rx#: [id number] Sodium Chloride 0.9% 1, 450 500 300 000 ml @ 100 mls/hr IV . Q10H [facility] Rx#:[id number] Valproate Sodium 1,000 mg 50 50 50 In Sodium Chloride 0.9% 50 ml @ 50 mls/hr IVPB Q12HR [facility] Rx#:[id number] Intake, IV Titration 150.0 Amount Phenytoin Sodium Inj 200 100 mg In Sodium Chloride 0.9 % 100 ml @ 200 mls/hr IV Q12HR [facility] Rx#:[id number] Piperacillin-Tazobactam 3 50.0 .375 gm In Dextrose/Water 1 50ml.bag @ 12.5 mls/hr IVPB Q8HR AN[facility] Rx#: [id number] Oral 0 Output: Urine 800 500 200 Other: Voiding Method Diaper Diaper Diaper # Voids 2 1 2 - Exam GENERAL APPEARANCE: 61-year-old male patient is alert, oriented to self only, in no acute distress. Does not consistently follow simple commands randomly moving all extremities randomly . Will open eyes to verbal stimuli. Continues to have periods of restlessness VITAL SIGNS: Reviewed HEENT: Head is normocephalic and atraumatic. Pupils are equal and reactive. The nares are patent. Oropharynx is clear without lesions. NECK: Supple without lymphadenopathy. Traches midline. HEART: S1, S2. Regular rate and rhythm. Monitor sinus no murmur noted LUNGS: No crackles or wheezes are heard. Currently on BiPAP support ABDOMEN: Soft, nontender, nondistended with good bowel sounds. No peritoneal signs. No palpable organomegaly or masses. Incontinent a urine no stool EXTREMITIES: Normal skin color and turgor. No cyanosis, rash, ulceration, clubbing or edema. Radial pedal pulses are 2/4 bilaterally - Labs CBC & Chem 7: 02/07/17 05:41 02/07/17 05:41 Labs: Abnormal Lab Results - Last 24 Hours (Table) 02/07/17 02/07/17 Range/Units 05:41 05:41 WBC 11.1 H (3.8-10.6) k/uL Plt Count 120 L (150-450) k/uL Neutrophils # 8.8 H (1.3-7.7) k/uL Sodium 151 H (137-145) mmol/L Chloride 118 H (98-107) mmol/L Carbon Dioxide 21 L (22-30) mmol/L Glucose 105 H (74-99) mg/dL Assessment and Plan Plan: Impression 1 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 2 change in mental status, rule out postictal state. Rule out alcoholic encephalopathy/delirium tremens. 3 acute hypoxic respiratory failure 4 acute right lower lobe consolidation/aspiration pneumonia 5 systolic CHF with ejection fraction of 20%, rule out alcoholic cardiomyopathy , rule out cocaine induced, rule out ischemic myopathy 6 hypothyroidism 7 history of marijuana and cocaine abuse 8 hypertension 9 bipolar disorder mood disorder 10 chronic anxiety disorder 11 GERD #12 positive urine drug screen for cocaine and marijuana present on admission #13 present on admission febrile leukocytosis suspect sepsis not ruled out due to acute right lower lobe aspiration pneumonia Acute on chronic systolic congestive heart failure injection fraction 20% Plan Continue recommendations per pulmonology service defer to Continue recommendations by neurology service defer to Follow up on repeat chest x-ray in the morning Seizure precautions IV fluid at 75 an hour monitor the response IV antibiotics Zosyn DVT and GI prophylaxis Continue BiPAP support as ordered Continue ciwa protocol using Ativan and Haldol 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 Perez Impression and the plan of care have been dictated as directed. Sahara Hanson nurse practitioner acting as a scribe for Dr. Perez
--- NOTE | 2017-02-07 18:19 | PN ---
DATE OF SERVICE: 02/06/2017 CHIEF COMPLAINT: Status epilepticus and semi-coma. HISTORY OF PRESENT ILLNESS: This gentleman continues to show very little improvement in level of consciousness. He has had no further seizures. There is concern that he may have sustained anoxic brain injury. Apparently, there was cocaine involved at the scene as well. REVIEW OF SYSTEMS: Unobtainable. PHYSICAL EXAMINATION: He is on respiratory assist and still not arousable. Toes are downgoing. IMPRESSIONS: 1. Status post grand mal seizure. 2. ? anoxic encephalopathy. 3. Premature ventricular contractions. PLAN: Continue supportive efforts and await for further evaluation by neurology.
--- NOTE | 2017-02-07 18:58 | PN ---
DATE OF SERVICE: 02/07/2017 CHIEF COMPLAINT: ( ) depression and Anoxic encephalopathy. HISTORY OF PRESENT ILLNESS: The gentleman at times is stable but never alert. He is generally lethargic. EEG done has demonstrated widespread abnormalities. PHYSICAL EXAMINATION: He is not arousable. Chest is clear. CARDIAC: Normal. IMPRESSION: Status epilepticus with possible anoxic brain injury. PLAN: Continue supportive care and wait for further EEG evaluations.
[2017-02-07] MEDS ORDERED: VALPROATE SODIUM 500 MG in SODIUM CHLORIDE 0.9% 50 ML IVPB STA (18:59)
[2017-02-07] MEDS: QUEtiapine 50 MG TAB PO SCH (20:05)
[2017-02-07] MEDS ORDERED: PHENYTOIN SODIUM INJ 400 MG in SODIUM CHLORIDE 0.9% 100 ML IVPB ONE (22:00)
--- NOTE | 2017-02-07 23:33 | P.PN ---
Subjective This patient is a 61-year-old male who is seen today in the intensive care unit. Patient was admitted with multiple breakthrough seizures. He has a history of underlying seizure disorder. He is currently on a combination of Depakote and Dilantin for seizure prophylaxis. According to the ICU nursing staff he has not had any recurrent seizures since last night. He does have a sitter at bedside due to confusion and agitation. He has received combination of Ativan and Haldol when he becomes more agitated. This is the CIWA protocol. His Depakote level this morning is 49.0 His Dilantin level is 8.3. He may require a bolus of Dilantin to get his Dilantin level into a therapeutic range. The EEG he recently had failed to show any evidence of complex partial status epilepticus. We reviewed the EEG which reveals diffuse slowing. There is no evidence of active seizure focus or status epilepticus based on this EEG finding. Patient is currently on BiPAP intermittently. He does seem to be more awake and alert today as compared to yesterday. According to his who is at bedside his last seizure occurred about a month ago. His Dilantin level was slightly low today and we will be giving him a IV bolus and recheck his levels tomorrow morning. Patient also has low-grade temperature. As noted his EEG failed to reveal any evidence of status epilepticus. He does have a rather extensive alcohol abuse history and may have had alcohol withdrawal seizures as well. Patient was able to come off of his BiPAP most of today. Patient had a very rough night yesterday. He apparently pulled out his Hargrove catheter and was agitated. He is content tuning to be treated with days CIWA protocol. According to the ICU nursing staff he still remains agitated at times. He can become somewhat combative as well. We will continue close neurological follow- up of this patient in the intensive care unit. He is to be maintained on his current anticonvulsant medications. His prognosis at this time remains very guarded. Objective - Vital Signs Vital signs: Vital Signs Temp 98.8 F 02/07/17 16:00 Pulse 112 H 02/07/17 16:00 Resp 18 02/07/17 16:00 BP 149/86 02/07/17 16:00 Pulse Ox 94 L 02/07/17 16:00 Intake & Output 02/06/17 02/07/17 02/07/17 18:59 06:59 18:59 Intake Total 975 1350.0 600.0 Output Total 800 500 400 Balance 175 850.0 200.0 Weight 79.5 kg 79.9 kg 79.9 kg Intake: IV 975 1200 600.0 Dextrose 5% in Water 1, 100 000 ml @ 100 mls/hr IV . Q10H7M ANJELICA with Mvi, Adult No.4 with Vit K 10 ml with Thiamine 100 mg with Folic Acid 1 mg Rx#: [id number] Mvi, Adult No.4 with Vit 375 650 K 10 ml Thiamine 100 mg Folic Acid 1 mg In Sodium Chloride 0.9% 1,000 ml @ 75 mls/hr IV .BY DURATION ANJELICA Rx#: [id number] Phenytoin Sodium Inj 200 100 100 mg In Sodium Chloride 0.9 % 100 ml @ 200 mls/hr IV ONCE STA Rx#:[id number] Piperacillin-Tazobactam 3 50.0 .375 gm In Dextrose/Water 1 50ml.bag @ 12.5 mls/hr IVPB Q8HR ANJELICA Rx#: [id number] Sodium Chloride 0.9% 1, 450 500 300 000 ml @ 100 mls/hr IV . Q10H [facility] Rx#:[id number] Valproate Sodium 1,000 mg 50 50 50 In Sodium Chloride 0.9% 50 ml @ 50 mls/hr IVPB Q12HR [facility] Rx#:[id number] Intake, IV Titration 150.0 Amount Phenytoin Sodium Inj 200 100 mg In Sodium Chloride 0.9 % 100 ml @ 200 mls/hr IV Q12HR [facility] Rx#:[id number] Piperacillin-Tazobactam 3 50.0 .375 gm In Dextrose/Water 1 50ml.bag @ 12.5 mls/hr IVPB Q8HR [facility] Rx#: [id number] Oral 0 Output: Urine 800 500 400 Other: Voiding Method Diaper Diaper Diaper # Voids 2 1 2 - Exam Physical examination: PHYSICAL EXAMINATION: Patient is resting comfortably in bed. VITAL SIGNS: Blood pressure is [149/86]. Heart rate is [112]. Respiration is [18 ]. Temperature is [98.8]. HEENT: Head is atraumatic, neck is supple, there were no carotid bruits. CHEST: Lungs are clear to auscultation and percussion. CARDIAC: S1, S2 normal rate and rhythm. There is no murmur. ABDOMEN: Soft and nontender. Bowel sounds are present. EXTREMITIES: There is no pedal edema. Peripheral pulses are present. Neurological examination: Patient's neurological examination is unchanged from yesterday. Patient is laying in bed with BiPAP in place. He does seem to be more awake and alert today. He is moving all extremities. - Labs CBC & Chem 7: 02/07/17 05:41 02/07/17 05:41 Labs: Abnormal Lab Results - Last 24 Hours (Table) 02/07/17 02/07/17 Range/Units 05:41 05:41 WBC 11.1 H (3.8-10.6) k/uL Plt Count 120 L (150-450) k/uL Neutrophils # 8.8 H (1.3-7.7) k/uL Sodium 151 H (137-145) mmol/L Chloride 118 H (98-107) mmol/L Carbon Dioxide 21 L (22-30) mmol/L Glucose 105 H (74-99) mg/dL Assessment and Plan (1) Complex partial epilepsy Status: Acute Code(s): G40.209 - LOCAL-REL SYMPTC EPI W CMPLX PRT SEIZ,NOT NTRCT,W/O STAT EPI (2) Hypothyroidism Status: Acute Code(s): E03.9 - HYPOTHYROIDISM, UNSPECIFIED (3) Sepsis Status: Acute Code(s): A41.9 - SEPSIS, UNSPECIFIED ORGANISM (4) Drug abuse Status: Acute Code(s): F19.10 - OTHER PSYCHOACTIVE SUBSTANCE ABUSE, UNCOMPLICATED Plan: This patient is a 61-year-old male being evaluated for seizure disorder. He is currently on Depakote and Dilantin for seizure management. His anticonvulsant blood levels were checked today and are therapeutic. He shouldn't has been able to come off of his BiPAP machine most of today. He has intermittent episodes of confusion. His EEG failed to reveal any evidence of status epilepticus or seizure focus. He had a very rough night yesterday evening. He pulled out his Hargrove catheter twice. He has been agitated off and on since that time. Patient states he just wants to go home. We will adjust his anticonvulsant medications today and recheck levels in the morning. We will continue him on his current anticonvulsant medications. Patient does have history of underlying bipolar disorder. This may be contributing to some of his agitation. We will continue close neurological follow-up with this patient in the intensive care unit. His overall prognosis at this time remains very guarded.
[2017-02-08] MEDS: PIPERACILLIN-TAZOBACTAM 3.375 GM in DEXTROSE/WATER 1 50ML.BAG IVPB SCH ×4 (01:40→23:20)
[2017-02-08] MEDS: LORazepam 2 MG/ML SYRINGE IV PRN ×3 (02:21→18:48)
[2017-02-08 05:11] LABS: Basophils % (A) 0 %; CH 31.8; CHCM 33.2; Eosinophils # (A) 0.6 k/uL (0-0.7); Eosinophils % (A) 6 %; HCT 39.8 % (39.0-53.0); HDW 2.49; HGB 13.3 gm/dL (13.0-17.5); Luc # (Auto) 0.25; Luc % (Auto) 3; Lymphocytes # (A) 1.4 k/uL (1.0-4.8); Lymphocytes % (A) 15 %; MCH 32.2 pg (25.0-35.0); MCHC 33.5 g/dL (31.0-37.0); MCV 96.1 fL (80.0-100.0); Mean Platelet Volume 7.4; Monocytes # (A) 0.6 k/uL (0-1.0); Monocytes % (A) 7 %; Neutrophils # (A) 6.7 k/uL (1.3-7.7); Neutrophils % (A) 70 %; RBC 4.14 m/uL (4.30-5.90); RDW 13.1 % (11.5-15.5); WBC 9.6 k/uL (3.8-10.6); WBC (Perox) 9.68
[2017-02-08 05:26] LABS: Anion Gap 7 mmol/L; Blood Urea Nitrogen 19 mg/dL (9-20); Calcium 8.4 mg/dL (8.4-10.2); Carbon Dioxide 26 mmol/L (22-30); Chloride 117 mmol/L (98-107); Glucose 97 mg/dL (74-99); Non-African American GFR(MDRD) >60 (>60 ml/min/1.73 sqM); Phosphorous 2.9 mg/dL (2.5-4.5); Potassium 3.2 mmol/L (3.5-5.1); Sodium 150 mmol/L (137-145)
[2017-02-08] MEDS ORDERED: Potassium Replacement Protocol 1 EACH MISC MISCELLANE PRN ×2 (06:06→16:06)
[2017-02-08] MEDS: POTASSIUM CHLORIDE ORAL LIQUID 40 MEQ/30 ML CUP NG-TUBE SCH ×2 (06:51→08:42)
--- NOTE | 2017-02-08 07:30 | XR ---
EXAMINATION TYPE: XR chest 1V portable DATE OF EXAM: 02/08/2017 6:47 AM COMPARISON: 02/07/2017 INDICATION: Pneumonia TECHNIQUE: Single frontal view of the chest is obtained. FINDINGS: The heart size is normal. The pulmonary vasculature is normal. There is a right lower lobe infiltrate. This is improved from prior study. Correlate for pneumonia. IMPRESSION: 1. Improving right lower lobe pneumonia. Continued follow-up is recommended.
[2017-02-08] MEDS: PANTOPRAZOLE 40 MG/10 ML VIAL IV SCH (08:43)
[2017-02-08] MEDS: ENOXAPARIN 40 MG/0.4 ML SYRINGE SQ SCH (08:43)
[2017-02-08] MEDS: LEVOTHYROXINE IVP 100 MCG/5 ML VIAL IV SCH (08:43)
[2017-02-08] MEDS: VALPROATE SODIUM 1,000 MG in SODIUM CHLORIDE 0.9% 50 ML IVPB SCH ×2 (08:45→21:18)
[2017-02-08] MEDS: METOPROLOL TARTRATE 25 MG TAB PO SCH ×3 (08:49→20:06)
[2017-02-08] MEDS: CHOLECALCIFEROL 1,000 UNIT TAB PO SCH (08:49)
[2017-02-08] MEDS: VENLAFAXINE HCL ER 75 MG CAP PO SCH (08:49)
[2017-02-08] MEDS: LOSARTAN 50 MG TAB PO SCH (08:49)
[2017-02-08] MEDS ORDERED: PHENYTOIN SODIUM INJ 200 MG in SODIUM CHLORIDE 0.9% 100 ML IV SCH (09:00)
--- NOTE | 2017-02-08 10:08 | P.PN ---
Subjective This patient is a 61-year-old right-handed white male who has underlying history of seizure disorder and hypertension. Apparently he was having a seizure at home which lasted about 2 minutes in duration. He had a second seizure in the emergency room. Patient has a history of underlying seizure disorder for which she has been taking Depakote. His seizure in the emergency room lasted about 1 minute in duration with some postictal confusion. Patient was sent for computed tomography scan of the brain which revealed no acute abnormality. His drug screen did come back positive for marijuana as well as cocaine. He was given Ativan in the emergency room and then transferred to [facility]. An A Team Code was initiated as a patient went into a episode of snorous breathing and possible recurrent seizure. He was started on IV Dilantin and transferred to the intensive care unit. Patient was given another dose of Ativan in the ICU and his Dilantin was initiated. We switched the patient to IV Depacon and IV Dilantin for further seizure management. We recommended placing him on IV Depacon thousand milligrams IVP he back every 12 hours. He is currently on Dilantin with a maintenance dose of 100 mg IV piggyback every 8 hours. The patient remains lethargic and obtunded in the intensive care unit. He has had no further active seizure noted by the ICU nursing staff. Patient was noted in the ER to have left lateral eye gaze. This suggests seizure focus emanating from the right hemisphere. Patient continues to remain postictal. It is unclear whether the patient has been having frequent breakthrough seizures Over the past 24hours the patient has been in the intensive care unit, and the patient was not witnessed to have any seizure. His current antiepileptic medication includes a combination of Dilantin and valproic acid. The Dilantin level is at 8.8 and the patient will receive another 200 mg of IV Dilantin and his maintenance dose will be 200 mg IV every 12 hours. He is also on valproic acid and the level was 61.5. The patient is moving all 4 extremities. He occasionally gets confused and thrashes. He had required Ativan during this ICU stay and his last Ativan dose was 1 milligram around 8am this morning. There is a concern that the patient is also withdrawing from alcohol knowing that he has also history of alcoholism and he is currently on the CILA protocol. Furthermore, the patient had an echocardiogram this morning that showed a poor LV function with ejection fraction of 20% and there is mild aortic sclerosis and mild tricuspid and mitral regurgitation. There is no evidence of any pulmonary hypertension. No evidence of any pericardial effusion. Chest x-ray remains abnormal with a large right lower lobe consolidation which probably is a representation of an underlying aspiration pneumonia..Furthermore, the patient was having labored breathing earlier this morning in conjunction with this right lower lobe findings and based on that the patient was placed on a BiPAP with settings of 10 and 500 FiO2 of 70%. The patient is much more comfortable while being on a BiPAP treatment at this point. Breathing is less labored. On 02/06/2017 I'm seeing this patient in follow-up. The patient is currently on a BiPAP at a pressure of 12/8 cm and an FiO2 of 50%. He is not snoring and is quite synchronous with the BiPAP machine. His chest x-ray shows improvement in the right lower lobe pulmonary infiltrates which is felt to be related to an aspiration pneumonia. I started this patient IV Zosyn. Neurologically, the patient is not having any seizure activity. He is on a combination of Depakote and Dilantin. Levels need to be rechecked and neurologist on the case. Meanwhile we confronted the patient is an alcoholic. His symptoms were also suggestive of delirium tremens and the patient is being treated with Ativan and overnight he received a total of 8 mg of Ativan. This morning it is quite comfortable and somnolent and sleepy. He did wake up earlier this morning and he was given a brief period off the BiPAP. He answered some simple questions and follows some commands. He seems to be much more appropriate compared to yesterday. Neurologic exam remains nonfocal. No chills. No fever. No nausea. No vomiting. The patient is still nothing by mouth for now. He did pass also a bedside swallow evaluation. The patient is seen again today 02/07/2017 in follow-up in the intensive care unit. He was quite restless and agitated last night requiring several doses of Haldol and Ativan. He has been off the BiPAP and is maintaining good O2 saturations in the 90s on 5 L/m per nasal cannula. He does have elevated temperature today currently on 100.7. He remains on Zosyn. He is difficult to arouse this morning secondary to sedation. He does respond to loud verbal stimuli and answering questions appropriately. He is moving all fours. He did pass a swallow evaluation neurology is on the case regarding his history of seizures. No seizure activity throughout the evening. He is seen again today in follow-up 02/08/2017 in the intensive care unit. He is more awake and alert today as compared to yesterday. He is still somewhat confused as to time and place and slow to respond. He was restless earlier and had Haldol and Ativan approximately 5 AM today. He has not had any further seizure activity remains off the BiPAP since early yesterday morning. He is maintaining good O2 saturations in the 90s on 5 L/m per nasal cannula. Really tachycardic at 104. Otherwise hemodynamically stable. Current temperature 99.2. He remains on IV Zosyn. His sodium is slightly improved currently 150. He has been drinking small amounts of clear liquids but did choke at one point. Bedside swallow evaluation is pending. A sitter remains at the bedside. Objective - Vital Signs Vital signs: Vital Signs Temp 99.2 F 02/08/17 04:00 Pulse 104 H 02/08/17 09:00 Resp 23 02/08/17 09:00 BP 117/73 02/08/17 09:00 Pulse Ox 97 02/08/17 09:00 Intake & Output 02/07/17 02/08/17 02/08/17 18:59 06:59 18:59 Intake Total 625.0 2123.7 450 Output Total 400 600 200 Balance 225.0 1523.7 250 Weight 79.9 kg 76.2 kg Intake: IV 625.0 1112.5 450 Dextrose 5% in Water 1, 100 1100 300 000 ml @ 100 mls/hr IV . Q10H7M ANJELICA with Mvi, Adult No.4 with Vit K 10 ml with Thiamine 100 mg with Folic Acid 1 mg Rx#: [id number] Mvi, Adult No.4 with Vit 100 K 10 ml Thiamine 100 mg Folic Acid 1 mg In Sodium Chloride 0.9% 1,000 ml @ 75 mls/hr IV .BY DURATION ANJELICA Rx#: [id number] Phenytoin Sodium Inj 200 100 mg In Sodium Chloride 0.9 % 100 ml @ 200 mls/hr IV ONCE STA Rx#:[id number] Piperacillin-Tazobactam 3 75.0 12.5 .375 gm In Dextrose/Water 1 50ml.bag @ 12.5 mls/hr IVPB Q8HR ANJELICA Rx#: [id number] Sodium Chloride 0.9% 1, 300 000 ml @ 100 mls/hr IV . Q10H ANJELICA Rx#:[id number] Valproate Sodium 1,000 mg 50 50 In Sodium Chloride 0.9% 50 ml @ 50 mls/hr IVPB Q12HR ANJELICA Rx#:[id number] Intake, IV Titration 1011.2 Amount Mvi, Adult No.4 with Vit 1011.2 K 10 ml Thiamine 100 mg Folic Acid 1 mg In Dextrose 5% in Water 1, 000 ml @ 100 mls/hr IV . BY DURATION ANJELICA Rx#: [id number] Output: Urine 400 600 200 Other: Voiding Method Diaper Diaper Diaper # Voids 2 2 1 # Bowel Movements 1 1 - Exam Head exam was generally normal. There was no scleral icterus or corneal arcus. Mucous membranes were moist.Neck was supple and without jugular venous distension, thyromegaly, or carotid bruits. Carotids were easily palpable bilaterally. There was no adenopathy.Cardiac exam revealed the PMI to be normally situated and sized. The rhythm was regular and no extrasystoles were noted during several minutes of auscultation. The first and second heart sounds were normal and physiologic splitting of the second heart sound was noted. There were no murmurs, rubs, clicks, or gallops. Lungs sounds are diminished in the right lung base along with some right basilar crackles.Abdominal exam revealed normal bowel sounds. The abdomen was soft, non-tender, and without masses, organomegaly, or appreciable enlargement of the abdominal aorta.Examination of the extremities revealed easily palpable radial, femoral and pedal pulses. There was no cyanosis, clubbing or edema. Neurologically the patient will undergo 4 extremities. He is quite strong. He cannot follow commands consistently and his level of focus and attention is limited to none as the patient can easily gets distracted and does not follow particular or complex commands. Swallow needs to be checked knowing that the patient has no gag reflex with MB elicited on today's evaluation. No focal neurological deficits at this point. - Labs CBC & Chem 7: 02/08/17 04:29 02/08/17 04:29 Labs: Abnormal Lab Results - Last 24 Hours (Table) 02/08/17 02/08/17 Range/Units 04:29 04:29 RBC 4.14 L (4.30-5.90) m/uL Plt Count 145 L (150-450) k/uL Sodium 150 H (137-145) mmol/L Potassium 3.2 L (3.5-5.1) mmol/L Chloride 117 H (98-107) mmol/L Assessment and Plan Plan: Assessment 1 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 It is likely that the patient was having alcoholic seizures or alcohol-induced seizures or alcohol even lowering the threshold of his chronic seizure disorder/ epilepsy. As such the patient is on a combination of Depakote and Dilantin. He is seizure free for the time being. He may be also recovering from a postictal state. 02/07/2017 the patient did not have any further seizure activity last evening. 02/08/2017 no further seizure activity. 2 change in mental status, rule out postictal state. Rule out alcoholic encephalopathy/delirium tremens. The patient is being treated for both. His seizures are under good control. The patient on Ativan for symptoms of delirium tremens. 02/07/2017 the patient was restless and agitated throughout the evening and did require alternating doses between Haldol and Ativan. 02/08/2017 the patient is more awake and alert today as compared to yesterday. He is still occasionally requiring Haldol and Ativan as he can become quite restless and agitated. 3 acute hypoxic respiratory failure, currently off BiPAP for greater than 24 hours. The patient has improved and is currently on 3 L/m per nasal cannula. 4 acute right lower lobe consolidation/aspiration pneumonia 5 CHF with ejection fraction of 20%, rule out alcoholic cardiomyopathy, rule out cocaine induced, rule out ischemic myopathy 6 hypothyroidism 7 history of marijuana and cocaine abuse 8 hypertension 9 bipolar disorder 10 chronic anxiety disorder 11 GERD 12 alcoholism 13 Hypernatremia, current sodium 150. Plan: The patient was seen and evaluated by Dr. Robles. The patient is more awake and alert today as compared to yesterday. He is hemodynamically stable. He's been off BiPAP for greater than 24 hours. He is maintaining good O2 saturations in the upper 90s on 3 L/m per nasal cannula. He is still hypernatremic. We will monitor his labs in the a.m. We'll keep him here in the intensive care unit another 24 hours. CIWA protocol remains in place. A sitter is at the bedside.
--- NOTE | 2017-02-08 11:36 | P.PN ---
Subjective A 61-year-old male being seen in the intensive care unit this morning. Sitter at the bedside. Patient is more awake and alert will follow simple commands. Moving all extremities. Nursing reports the patient continues to have periods of agitation has received Ativan nursing reports patient this morning was given a small amount of liquid appeared to choke repeat a swallow eval. indicates the patient needs to be kept nothing by mouth increase concern for aspiration Patient continues to be off BiPAP on nasal cannula keeping the sats greater than 90. Remains tachycardic heart rate in the 100s to 110s. Being followed by pulmonary cardiology and neurology service. Labs were noted hemoglobin stable sodium up to 150 with a potassium 3.2 which is being replaced per protocol in the ICU Objective - Vital Signs Vital signs: Vital Signs Temp 99.2 F 02/08/17 04:00 Pulse 99 02/08/17 10:00 Resp 24 02/08/17 10:00 BP 138/85 02/08/17 10:00 Pulse Ox 98 02/08/17 10:00 Intake & Output 02/07/17 02/08/17 02/08/17 18:59 06:59 18:59 Intake Total 625.0 2123.7 550 Output Total 400 600 200 Balance 225.0 1523.7 350 Weight 79.9 kg 76.2 kg Intake: IV 625.0 1112.5 550 Dextrose 5% in Water 1, 100 1100 300 000 ml @ 100 mls/hr IV . Q10H7M ANJELICA with Mvi, Adult No.4 with Vit K 10 ml with Thiamine 100 mg with Folic Acid 1 mg Rx#: [id number] Mvi, Adult No.4 with Vit 200 K 10 ml Thiamine 100 mg Folic Acid 1 mg In Sodium Chloride 0.9% 1,000 ml @ 75 mls/hr IV .BY DURATION ANJELICA Rx#: [id number] Phenytoin Sodium Inj 200 100 mg In Sodium Chloride 0.9 % 100 ml @ 200 mls/hr IV ONCE STA Rx#:[id number] Piperacillin-Tazobactam 3 75.0 12.5 .375 gm In Dextrose/Water 1 50ml.bag @ 12.5 mls/hr IVPB Q8HR ANJELICA Rx#: [id number] Sodium Chloride 0.9% 1, 300 000 ml @ 100 mls/hr IV . Q10H ANJELICA Rx#:[id number] Valproate Sodium 1,000 mg 50 50 In Sodium Chloride 0.9% 50 ml @ 50 mls/hr IVPB Q12HR ANJELICA Rx#:[id number] Intake, IV Titration 1011.2 Amount Mvi, Adult No.4 with Vit 1011.2 K 10 ml Thiamine 100 mg Folic Acid 1 mg In Dextrose 5% in Water 1, 000 ml @ 100 mls/hr IV . BY DURATION ANJELICA Rx#: [id number] Output: Urine 400 600 200 Other: Voiding Method Diaper Diaper Diaper # Voids 2 2 1 # Bowel Movements 1 1 - Exam GENERAL APPEARANCE: 61-year-old male patient is alert, oriented to self only, in no acute distress. follow simple commands randomly moving all extremities randomly . Will open eyes to verbal stimuli. Continues to have periods of restlessness requiring Ativan and Haldol VITAL SIGNS: Reviewed HEENT: Head is normocephalic and atraumatic. Pupils are equal and reactive. The nares are patent. Oropharynx is clear without lesions. NECK: Supple without lymphadenopathy. Traches midline. HEART: S1, S2. Regular rate and rhythm. Monitor sinus no murmur noted LUNGS: No crackles or wheezes are heard. The nasal cannula is at 5 L keeping a sat 94% ABDOMEN: Soft, nontender, nondistended with good bowel sounds. No peritoneal signs. No palpable organomegaly or masses. Incontinent a urine no stool EXTREMITIES: Normal skin color and turgor. No cyanosis, rash, ulceration, clubbing or edema. Radial pedal pulses are 2/4 bilaterally - Labs CBC & Chem 7: 02/08/17 04:29 02/08/17 04:29 Labs: Abnormal Lab Results - Last 24 Hours (Table) 02/08/17 02/08/17 Range/Units 04:29 04:29 RBC 4.14 L (4.30-5.90) m/uL Plt Count 145 L (150-450) k/uL Sodium 150 H (137-145) mmol/L Potassium 3.2 L (3.5-5.1) mmol/L Chloride 117 H (98-107) mmol/L Assessment and Plan Plan: Impression 1 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 2 present on admission acute encephalopathy likely due to alcoholism with impending delirium tremens. 3 present on admission acute hypoxic respiratory failure multifactorial 4 acute right lower lobe consolidation/aspiration pneumonia 5 acute systolic CHF with ejection fraction of 20%, likely due to alcoholic and cocaine induced, 6 hypothyroidism 7 history of marijuana and cocaine abuse with a positive urine drug screen this admission for cocaine and marijuana 8 hypertension 9 bipolar disorder mood disorder 10 chronic anxiety disorder 11 GERD #12 positive urine drug screen for cocaine and marijuana present on admission #13 present on admission febrile leukocytosis suspect sepsis not ruled out due to acute right lower lobe aspiration pneumonia Acute on chronic systolic congestive heart failure injection fraction 20% Acute dysphagia failed swallow eval Electrolyte morality hypernatremia and hypokalemia Severe cardiomyopathy systolic congestive heart failure EF 20% suspect due to alcoholism and cocaine Plan Continue recommendations per pulmonology service defer to Continue recommendations by neurology service defer to Failed swallow eval on February 08 concern for dysphasia increased risk of aspiration Keep nothing by mouth with aspiration precaution nutritional needs need to be addressed Seizure precautions IV fluid at 75 an hour monitor the response IV antibiotics Zosyn DVT and GI prophylaxis Continue BiPAP support as ordered Continue ciwa protocol using Ativan and Haldol hospital social worker to address home situation patient may need to benefit from subacute rehab when medically stable The above dictated assessment and findings were discussed with Dr. Perez Impression and the plan of care have been dictated as directed. Sahara Hanson nurse practitioner acting as a scribe for Dr. Perez
--- NOTE | 2017-02-08 11:46 | PN ---
Mr. Valerio is a patient with a recurrent seizures, alcoholism, and poor LV function. He is more alert, responds to some commands. Remains in sinus rhythm. Heart rate is much better. Resting comfortably. Blood pressure 130/80, pulse rate is 80 per minute. S1, S2 heard normally. Lungs reveal diminished air entry. Abdomen and lower extremity exam unchanged. The patient is being closely followed by critical care medicine and neurology. Will repeat echocardiogram tomorrow to see if there is any improvement in LV function. I suspect some of the LV dysfunction was related to a recent episode of recurrent seizures and acidosis. We will repeat echo. Continue beta blockers for now and losartan.
[2017-02-08] MEDS: POTASSIUM CHLORIDE 10 MEQ in WATER FOR INJECTION 1 100ML.BAG IVPB SCH ×2 (16:56→18:00)
[2017-02-08] MEDS: HALOPERIDOL LACTATE 5 MG/ML 1 ML VIAL IVP PRN (18:50)
--- NOTE | 2017-02-08 18:57 | P.PN ---
Subjective This patient is a 61-year-old male who is seen today in the intensive care unit. Patient was admitted with multiple breakthrough seizures. He has a history of underlying seizure disorder. He is currently on a combination of Depakote and Dilantin for seizure prophylaxis. According to the ICU nursing staff he has not had any recurrent seizures since last night. He does have a sitter at bedside due to confusion and agitation. He has received combination of Ativan and Haldol when he becomes more agitated. This is the [facility] protocol. His Depakote level this morning is 52.8 and His Dilantin level is 6.9. He may require a bolus of Dilantin to get his Dilantin level into a therapeutic range. The EEG he recently had failed to show any evidence of complex partial status epilepticus. We reviewed the EEG which reveals diffuse slowing. There is no evidence of active seizure focus or status epilepticus based on this EEG finding. Patient is currently on BiPAP intermittently. He does seem to be more awake and alert today as compared to yesterday. According to his who is at bedside his last seizure occurred about a month ago. His Dilantin level was slightly low today and we will be giving him a IV bolus and recheck his levels tomorrow morning. Patient also has low-grade temperature. As noted his EEG failed to reveal any evidence of status epilepticus. He does have a rather extensive alcohol abuse history and may have had alcohol withdrawal seizures as well. Patient was able to come off of his BiPAP most of today. Patient had a very rough night yesterday. He apparently pulled out his Hargrove catheter and was agitated yesterday. Today he seems to be more calm and breasted with his significant other at bedside. She has noted improvement in his overall condition today. We will continue close neurological follow-up of this patient in the intensive care unit. He is to be maintained on his current anticonvulsant medications. His prognosis at this time remains very guarded. Objective - Vital Signs Vital signs: Vital Signs Temp 98.5 F 02/08/17 15:00 Pulse 100 02/08/17 15:00 Resp 30 H 02/08/17 15:00 BP 132/86 02/08/17 15:00 Pulse Ox 100 02/08/17 15:00 Intake & Output 02/07/17 02/08/17 02/08/17 18:59 06:59 18:59 Intake Total 625.0 2123.7 1000.0 Output Total 400 600 500 Balance 225.0 1523.7 500.0 Weight 79.9 kg 76.2 kg Intake: IV 625.0 1112.5 1000.0 Dextrose 5% in Water 1, 100 1100 300 000 ml @ 100 mls/hr IV . Q10H7M ANJELICA with Mvi, Adult No.4 with Vit K 10 ml with Thiamine 100 mg with Folic Acid 1 mg Rx#: [id number] Mvi, Adult No.4 with Vit 600 K 10 ml Thiamine 100 mg Folic Acid 1 mg In Sodium Chloride 0.9% 1,000 ml @ 75 mls/hr IV .BY DURATION [facility] Rx#: [id number] Phenytoin Sodium Inj 200 100 mg In Sodium Chloride 0.9 % 100 ml @ 200 mls/hr IV ONCE STA Rx#:[id number] Piperacillin-Tazobactam 3 75.0 12.5 50.0 .375 gm In Dextrose/Water 1 50ml.bag @ 12.5 mls/hr IVPB Q8HR [facility] Rx#: [id number] Sodium Chloride 0.9% 1, 300 000 ml @ 100 mls/hr IV . Q10H [facility] Rx#:[id number] Valproate Sodium 1,000 mg 50 50 In Sodium Chloride 0.9% 50 ml @ 50 mls/hr IVPB Q12HR [facility] Rx#:[id number] Intake, IV Titration 1011.2 Amount Mvi, Adult No.4 with Vit 1011.2 K 10 ml Thiamine 100 mg Folic Acid 1 mg In Dextrose 5% in Water 1, 000 ml @ 100 mls/hr IV . BY DURATION [facility] Rx#: [id number] Output: Urine 400 600 500 Other: Voiding Method Diaper Diaper Diaper # Voids 2 2 1 # Bowel Movements 1 - Exam Physical examination: PHYSICAL EXAMINATION: Patient is resting comfortably in bed. VITAL SIGNS: Blood pressure is [132/86]. Heart rate is [94]. Respiration is [30] . Temperature is [98.5]. HEENT: Head is atraumatic, neck is supple, there were no carotid bruits. CHEST: Lungs are clear to auscultation and percussion. CARDIAC: S1, S2 normal rate and rhythm. There is no murmur. ABDOMEN: Soft and nontender. Bowel sounds are present. EXTREMITIES: There is no pedal edema. Peripheral pulses are present. Neurological examination: Patient's neurological examination is unchanged from yesterday. Patient is laying in bed with BiPAP in place. He does seem to be more awake and alert today. He is moving all extremities. - Labs CBC & Chem 7: 02/08/17 04:29 02/08/17 04:29 Labs: Abnormal Lab Results - Last 24 Hours (Table) 02/08/17 02/08/17 Range/Units 04:29 04:29 RBC 4.14 L (4.30-5.90) m/uL Plt Count 145 L (150-450) k/uL Sodium 150 H (137-145) mmol/L Potassium 3.2 L (3.5-5.1) mmol/L Chloride 117 H (98-107) mmol/L Assessment and Plan (1) Complex partial epilepsy Status: Acute Code(s): G40.209 - LOCAL-REL SYMPTC EPI W CMPLX PRT SEIZ,NOT NTRCT,W/O STAT EPI (2) Hypothyroidism Status: Acute Code(s): E03.9 - HYPOTHYROIDISM, UNSPECIFIED (3) Sepsis Status: Acute Code(s): A41.9 - SEPSIS, UNSPECIFIED ORGANISM (4) Drug abuse Status: Acute Code(s): F19.10 - OTHER PSYCHOACTIVE SUBSTANCE ABUSE, UNCOMPLICATED Plan: This patient is a 61-year-old male being evaluated for seizure disorder. He is currently on Depakote and Dilantin for seizure management. His anticonvulsant blood levels were checked today and are therapeutic. He shouldn't has been able to come off of his BiPAP machine most of today. He has intermittent episodes of confusion. His EEG failed to reveal any evidence of status epilepticus or seizure focus. He had a very rough night yesterday evening. He pulled out his Hargrove catheter twice. He has been agitated off and on since that time. Patient states he just wants to go home. We will adjust his anticonvulsant medications today and recheck levels in the morning. We will continue him on his current anticonvulsant medications. Patient does have history of underlying bipolar disorder. This may be contributing to some of his agitation. Patient does seem to be more calm today in the ICU setting. He is less agitated and does follow simple commands. He is to continue with his current anticonvulsant medications. We will continue close neurological follow- up with this patient in the intensive care unit. His overall prognosis at this time remains very guarded.
[2017-02-08] MEDS ORDERED: PHENYTOIN SODIUM INJ 500 MG in SODIUM CHLORIDE 0.9% 100 ML IVPB STA (19:04)
[2017-02-08] MEDS: QUEtiapine 50 MG TAB PO SCH (20:06)
[2017-02-08] MEDS: PHENYTOIN SODIUM INJ 200 MG in SODIUM CHLORIDE 0.9% 100 ML IV SCH (22:40)
[2017-02-09] MEDS: LORazepam 2 MG/ML SYRINGE IV PRN ×2 (02:17→23:25)
[2017-02-09 05:42] LABS: Basophils % (A) 0 %; CH 32.2; CHCM 33.7; Eosinophils # (A) 0.6 k/uL (0-0.7); Eosinophils % (A) 5 %; HCT 41.9 % (39.0-53.0); HDW 2.49; HGB 14.2 gm/dL (13.0-17.5); Luc # (Auto) 0.21; Luc % (Auto) 2; Lymphocytes # (A) 1.6 k/uL (1.0-4.8); Lymphocytes % (A) 13 %; MCH 32.6 pg (25.0-35.0); Mean Platelet Volume 8.5; Monocytes % (A) 8 %; Neutrophils % (A) 72 %; RBC 4.36 m/uL (4.30-5.90); RDW 13.1 % (11.5-15.5); WBC 12.4 k/uL (3.8-10.6); WBC (Perox) 12.54
[2017-02-09 06:06] LABS: Anion Gap 11 mmol/L; Blood Urea Nitrogen 16 mg/dL (9-20); Calcium 8.3 mg/dL (8.4-10.2); Carbon Dioxide 22 mmol/L (22-30); Chloride 114 mmol/L (98-107); Glucose 86 mg/dL (74-99); Magnesium 1.9 mg/dL (1.6-2.3); Non-African American GFR(MDRD) >60 (>60 ml/min/1.73 sqM); Potassium 3.4 mmol/L (3.5-5.1); Sodium 147 mmol/L (137-145)
[2017-02-09] MEDS ORDERED: Potassium Replacement Protocol 1 EACH MISC MISCELLANE PRN ×2 (06:41→11:41)
[2017-02-09] MEDS: POTASSIUM CHLORIDE 10 MEQ, LIDOCAINE 2% INJ 10 MG in SODIUM CHLORIDE 0.9% 100 ML IV SCH ×2 (07:12→08:36)
--- NOTE | 2017-02-09 07:23 | XR ---
EXAMINATION TYPE: XR chest 1V portable DATE OF EXAM: 02/09/2017 6:30 AM Comparison: 02/08/2017 Clinical History: 61-year-old male follow-up pneumonia Findings: The heart remains upper limits of normal in size. Aorta and pulmonary vasculature within normal limit s. Airspace opacity persists in the right lower lung but is slightly less confluent. No significant p leural effusion. Impression: Persistent but slightly improved right lower lung pneumonia.
[2017-02-09 07:28] LABS: Glucose,Whole Blood 113 mg/dL (75-99)
[2017-02-09] MEDS: LOSARTAN 50 MG TAB PO SCH (08:37)
[2017-02-09] MEDS: CHOLECALCIFEROL 1,000 UNIT TAB PO SCH (08:37)
[2017-02-09] MEDS: ENOXAPARIN 40 MG/0.4 ML SYRINGE SQ SCH (08:37)
[2017-02-09] MEDS: LEVOTHYROXINE IVP 100 MCG/5 ML VIAL IV SCH (08:37)
[2017-02-09] MEDS: ASPIRIN 81 MG CHEW PO SCH (08:37)
[2017-02-09] MEDS: METOPROLOL TARTRATE 25 MG TAB PO SCH ×3 (08:37→22:03)
[2017-02-09] MEDS: PANTOPRAZOLE 40 MG/10 ML VIAL IV SCH (08:37)
[2017-02-09] MEDS: VENLAFAXINE HCL ER 75 MG CAP PO SCH (08:38)
[2017-02-09] MEDS: VALPROATE SODIUM 1,000 MG in SODIUM CHLORIDE 0.9% 50 ML IVPB SCH ×2 (08:49→20:03)
[2017-02-09] MEDS: PIPERACILLIN-TAZOBACTAM 3.375 GM in DEXTROSE/WATER 1 50ML.BAG IVPB SCH ×3 (09:44→23:24)
[2017-02-09] MEDS: PHENYTOIN SODIUM INJ 200 MG in SODIUM CHLORIDE 0.9% 100 ML IV SCH ×2 (09:53→22:03)
--- NOTE | 2017-02-09 10:33 | P.PN ---
Subjective 61-year-old male being seen this morning awake and alert less restlessness noted sitter at bedside does follow simple commands this morning is oriented to place and person. The chest x-ray this morning show persistent but slightly improved right lower lobe pneumonia currently on IV Zosyn. Being followed by pulmonology service. dietary services manager participating in the plan of care when patient is more appropriate with less confusion case aide will follow for discharge planning when appropriate currently patient has nasal cannula in place currently on 3 L sats are 90% remains afebrile Objective - Vital Signs Vital signs: Vital Signs Temp 98.2 F 02/09/17 08:00 Pulse 94 02/09/17 10:00 Resp 18 02/09/17 10:00 BP 135/80 02/09/17 10:00 Pulse Ox 90 L 02/09/17 10:00 Intake & Output 02/08/17 02/09/17 02/09/17 18:59 06:59 18:59 Intake Total 2448.7 1212.5 662.5 Output Total 500 600 Balance 1948.7 612.5 662.5 Weight 79.4 kg Intake: IV 1237.5 1212.5 462.5 Dextrose 5% in Water 1, 300 000 ml @ 100 mls/hr IV . Q10H7M ANJELICA with Mvi, Adult No.4 with Vit K 10 ml with Thiamine 100 mg with Folic Acid 1 mg Rx#: [id number] MVI 200 1200 400 Mvi, Adult No.4 with Vit 600 K 10 ml Thiamine 100 mg Folic Acid 1 mg In Sodium Chloride 0.9% 1,000 ml @ 75 mls/hr IV .BY DURATION [facility] Rx#: [id number] Piperacillin-Tazobactam 3 87.5 12.5 12.5 .375 gm In Dextrose/Water 1 50ml.bag @ 12.5 mls/hr IVPB Q8HR ANJELICA Rx#: [id number] Valproate Sodium 1,000 mg 50 50 In Sodium Chloride 0.9% 50 ml @ 50 mls/hr IVPB Q12HR ANJELICA Rx#:[id number] Intake, IV Titration 1211.2 200 Amount Mvi, Adult No.4 with Vit 1011.2 K 10 ml Thiamine 100 mg Folic Acid 1 mg In Dextrose 5% in Water 1, 000 ml @ 100 mls/hr IV . BY DURATION [facility] Rx#: [id number] Phenytoin Sodium Inj 200 100 mg In Sodium Chloride 0.9 % 100 ml @ 200 mls/hr IV Q12HR ANJELICA Rx#:[id number] Potassium Chloride 10 meq 200 In Water For Injection 1 100ml.bag @ 100 mls/hr IVPB Q1H ANJELICA Rx#: [id number] Potassium Chloride 10 meq 100 Lidocaine 2% Inj 10 mg In Sodium Chloride 0.9% 100 ml @ 100 mls/hr IV Q1HR [facility] Rx#:[id number] Output: Urine 500 600 Other: Voiding Method Diaper Bedpan Bedpan Urinal Urinal Diaper Diaper # Voids 1 1 # Bowel Movements 1 - Exam Physical exam 61-year-old resting in bed less restlessness noted less confusion oriented to person and place sitter at bedside Lungs diminished at the bases upper airways bronchial breath sounds no cough noted Heart S1-S2 audible regular Abdomen soft nontender incontinent urine Extremities no edema noted no tremors - Labs CBC & Chem 7: 02/09/17 04:51 02/09/17 04:51 Labs: Abnormal Lab Results - Last 24 Hours (Table) 02/09/17 02/09/17 02/09/17 Range/Units 04:51 04:51 07:26 WBC 12.4 H (3.8-10.6) k/uL Plt Count 101 L (150-450) k/uL Neutrophils # 9.0 H (1.3-7.7) k/uL Sodium 147 H (137-145) mmol/L Potassium 3.4 L (3.5-5.1) mmol/L Chloride 114 H (98-107) mmol/L POC Glucose (mg/dL) 113 H (75-99) mg/dL Calcium 8.3 L (8.4-10.2) mg/dL Assessment and Plan Plan: Impression 1 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 2 present on admission acute encephalopathy likely due to alcoholism with impending delirium tremens. 3 present on admission acute hypoxic respiratory failure multifactorial 4 acute right lower lobe pneumonia suspected aspiration 5 acute systolic CHF with ejection fraction of 20%, likely due to alcoholic and cocaine induced, 6 hypothyroidism 7 history of marijuana and cocaine abuse with a positive urine drug screen this admission for cocaine and marijuana 8 hypertension 9 bipolar disorder mood disorder 10 chronic anxiety disorder nonspecified 11 GERD #12 positive urine drug screen for cocaine and marijuana present on admission #13 present on admission febrile leukocytosis suspect sepsis not ruled out due to acute right lower lobe aspiration pneumonia Acute on chronic systolic congestive heart failure injection fraction 20% Acute dysphagia failed swallow eval Electrolyte morality hypernatremia and hypokalemia Severe cardiomyopathy systolic congestive heart failure EF 20% suspect due to alcoholism and cocaine Plan Continue recommendations per pulmonology service defer to Continue recommendations by neurology service defer to Failed swallow eval on February 08 concern for dysphasia increased risk of aspiration Keep nothing by mouth with aspiration precaution nutritional needs need to be addressed Seizure precautions IV fluid at 75 an hour monitor the response IV antibiotics Zosyn DVT and GI prophylaxis Continue BiPAP support as ordered Continue ciwa protocol using Ativan and Haldol stamping die try out worker to address home situation patient may need to benefit from subacute rehab when medically stable The above dictated assessment and findings were discussed with Dr. Perez Impression and the plan of care have been dictated as directed. Sahara Hanson nurse practitioner acting as a scribe for Dr. Perez
--- NOTE | 2017-02-09 11:07 | ECHOF ---
Referral Reason:Comparison with first ECHO performed MEASUREMENTS -------- HEIGHT: 182.9 cm WEIGHT: 75.7 kg BP: 150/79 FINDINGS -------- Limited Study to compare with Echo Done 02/05/17.. NO CHANGES NOTED. Overall left ventricular systolic function is severely impaired with, an EF < 20%. Basal Segment Abran only. There is no pericardial effusion. CONCLUSIONS -------- 1. Limited Study to compare with Echo Done 02/05/17.. NO CHANGES NOTED. 2. Overall left ventricular systolic function is severely impaired with, an EF < 20%. 3. Basal Segment Abran only. 4. There is no pericardial effusion. RUG HOOKER: Willa Basilio RDCS
[2017-02-09] MEDS: POTASSIUM CHLORIDE ER 20 MEQ TAB.ER PO SCH ×2 (12:06→15:35)
--- NOTE | 2017-02-09 12:18 | PN ---
Mr. Valerio is more alert, responds to questions. Denies any chest pain. His echocardiogram from today reveals same LV function, which is significant impairment. I am recommending that we continue losartan and beta daiana for now. Cardiac-rodrigues, no other intervention. Will follow him noninvasively and make further recommendations. Patient has a history of alcoholism and also marijuana abuse. However, for now no intervention is necessary, same medications and possibility of an underlying Takotsubo cannot be excluded given his seizure disorder and recurrent episodes of seizures that have occurred. However, we will continue same medications. Increase activity. Patient has had a swallow test, so we can resume oral medications. Physical exam revealed blood pressure 128/70, pulse rate is 80 per minute, sinus, no JVD. S1, S2 heard normally. Lungs reveal good air entry. Abdomen and lower extremity exam is unchanged.
--- NOTE | 2017-02-09 13:13 | P.PN ---
Subjective This patient is a 61-year-old right-handed white male who has underlying history of seizure disorder and hypertension. Apparently he was having a seizure at home which lasted about 2 minutes in duration. He had a second seizure in the emergency room. Patient has a history of underlying seizure disorder for which she has been taking Depakote. His seizure in the emergency room lasted about 1 minute in duration with some postictal confusion. Patient was sent for computed tomography scan of the brain which revealed no acute abnormality. His drug screen did come back positive for marijuana as well as cocaine. He was given Ativan in the emergency room and then transferred to [facility]. An A Team Code was initiated as a patient went into a episode of snorous breathing and possible recurrent seizure. He was started on IV Dilantin and transferred to the intensive care unit. Patient was given another dose of Ativan in the ICU and his Dilantin was initiated. We switched the patient to IV Depacon and IV Dilantin for further seizure management. We recommended placing him on IV Depacon thousand milligrams IVP he back every 12 hours. He is currently on Dilantin with a maintenance dose of 100 mg IV piggyback every 8 hours. The patient remains lethargic and obtunded in the intensive care unit. He has had no further active seizure noted by the ICU nursing staff. Patient was noted in the ER to have left lateral eye gaze. This suggests seizure focus emanating from the right hemisphere. Patient continues to remain postictal. It is unclear whether the patient has been having frequent breakthrough seizures Over the past 24hours the patient has been in the intensive care unit, and the patient was not witnessed to have any seizure. His current antiepileptic medication includes a combination of Dilantin and valproic acid. The Dilantin level is at 8.8 and the patient will receive another 200 mg of IV Dilantin and his maintenance dose will be 200 mg IV every 12 hours. He is also on valproic acid and the level was 61.5. The patient is moving all 4 extremities. He occasionally gets confused and thrashes. He had required Ativan during this ICU stay and his last Ativan dose was 1 milligram around 8am this morning. There is a concern that the patient is also withdrawing from alcohol knowing that he has also history of alcoholism and he is currently on the CIME protocol. Furthermore, the patient had an echocardiogram this morning that showed a poor LV function with ejection fraction of 20% and there is mild aortic sclerosis and mild tricuspid and mitral regurgitation. There is no evidence of any pulmonary hypertension. No evidence of any pericardial effusion. Chest x-ray remains abnormal with a large right lower lobe consolidation which probably is a representation of an underlying aspiration pneumonia..Furthermore, the patient was having labored breathing earlier this morning in conjunction with this right lower lobe findings and based on that the patient was placed on a BiPAP with settings of 10 and 500 FiO2 of 70%. The patient is much more comfortable while being on a BiPAP treatment at this point. Breathing is less labored. On 02/06/2017 I'm seeing this patient in follow-up. The patient is currently on a BiPAP at a pressure of 12/8 cm and an FiO2 of 50%. He is not snoring and is quite synchronous with the BiPAP machine. His chest x-ray shows improvement in the right lower lobe pulmonary infiltrates which is felt to be related to an aspiration pneumonia. I started this patient IV Zosyn. Neurologically, the patient is not having any seizure activity. He is on a combination of Depakote and Dilantin. Levels need to be rechecked and neurologist on the case. Meanwhile we confronted the patient is an alcoholic. His symptoms were also suggestive of delirium tremens and the patient is being treated with Ativan and overnight he received a total of 8 mg of Ativan. This morning it is quite comfortable and somnolent and sleepy. He did wake up earlier this morning and he was given a brief period off the BiPAP. He answered some simple questions and follows some commands. He seems to be much more appropriate compared to yesterday. Neurologic exam remains nonfocal. No chills. No fever. No nausea. No vomiting. The patient is still nothing by mouth for now. He did pass also a bedside swallow evaluation. On 02/09/2017 the patient is being seen in follow-up. There has been considerable amount of improvement in his condition. He is recovering from encephalopathy related to delirium tremens. No seizure activity has been noted. The right lower lobe pneumonia was treated with Zosyn and the patient is clinically improved and the chest x-ray shows marked improvement in the right lower lobe pulmonary consolidation. No significant chest pain. No cough or sputum production. No hemoptysis. No fever chills or night sweats. He was able to walk and he seems to be unsteady and weak and he walked with assistance. No diarrhea. He is able to swallow food and he swallows appropriate at this point. Objective - Vital Signs Vital signs: Vital Signs Temp 98.4 F 02/09/17 12:00 Pulse 91 02/09/17 12:00 Resp 16 02/09/17 12:00 BP 134/79 02/09/17 12:00 Pulse Ox 92 L 02/09/17 12:00 Intake & Output 02/08/17 02/09/17 02/09/17 18:59 06:59 18:59 Intake Total 2448.7 1212.5 887.5 Output Total 500 600 Balance 1948.7 612.5 887.5 Weight 79.4 kg Intake: IV 1237.5 1212.5 687.5 Dextrose 5% in Water 1, 300 000 ml @ 100 mls/hr IV . Q10H7M ANJELICA with Mvi, Adult No.4 with Vit K 10 ml with Thiamine 100 mg with Folic Acid 1 mg Rx#: [id number] MVI 200 1200 600 Mvi, Adult No.4 with Vit 600 K 10 ml Thiamine 100 mg Folic Acid 1 mg In Sodium Chloride 0.9% 1,000 ml @ 75 mls/hr IV .BY DURATION [facility] Rx#: [id number] Piperacillin-Tazobactam 3 87.5 12.5 37.5 .375 gm In Dextrose/Water 1 50ml.bag @ 12.5 mls/hr IVPB Q8HR ANJELICA Rx#: [id number] Valproate Sodium 1,000 mg 50 50 In Sodium Chloride 0.9% 50 ml @ 50 mls/hr IVPB Q12HR ANJELICA Rx#:[id number] Intake, IV Titration 1211.2 200 Amount Mvi, Adult No.4 with Vit 1011.2 K 10 ml Thiamine 100 mg Folic Acid 1 mg In Dextrose 5% in Water 1, 000 ml @ 100 mls/hr IV . BY DURATION [facility] Rx#: [id number] Phenytoin Sodium Inj 200 100 mg In Sodium Chloride 0.9 % 100 ml @ 200 mls/hr IV Q12HR ANJELICA Rx#:[id number] Potassium Chloride 10 meq 200 In Water For Injection 1 100ml.bag @ 100 mls/hr IVPB Q1H ANJELICA Rx#: [id number] Potassium Chloride 10 meq 100 Lidocaine 2% Inj 10 mg In Sodium Chloride 0.9% 100 ml @ 100 mls/hr IV Q1HR ANJELICA Rx#:[id number] Output: Urine 500 600 Other: Voiding Method Diaper Bedpan Bedpan Urinal Urinal Diaper Diaper # Voids 1 1 1 # Bowel Movements 1 1 - Exam Head exam was generally normal. There was no scleral icterus or corneal arcus. Mucous membranes were moist.Neck was supple and without jugular venous distension, thyromegaly, or carotid bruits. Carotids were easily palpable bilaterally. There was no adenopathy. Lung sounds are diminished bilaterally otherwise clear.Cardiac exam revealed the PMI to be normally situated and sized. The rhythm was regular and no extrasystoles were noted during several minutes of auscultation. The first and second heart sounds were normal and physiologic splitting of the second heart sound was noted. There were no murmurs , rubs, clicks, or gallops.Abdominal exam revealed normal bowel sounds. The abdomen was soft, non-tender, and without masses, organomegaly, or appreciable enlargement of the abdominal aorta.Examination of the extremities revealed easily palpable radial, femoral and pedal pulses. There was no cyanosis, clubbing or edema. Neurologic exam is nonfocal and the patient is gradually recovering from his encephalopathy. No delusions. No hallucinations. He seems to be much more appropriate. No tremors at this point. - Labs CBC & Chem 7: 02/09/17 04:51 02/09/17 10:42 Labs: Abnormal Lab Results - Last 24 Hours (Table) 02/09/17 02/09/17 02/09/17 Range/Units 04:51 04:51 07:26 WBC 12.4 H (3.8-10.6) k/uL Plt Count 101 L (150-450) k/uL Neutrophils # 9.0 H (1.3-7.7) k/uL Sodium 147 H (137-145) mmol/L Potassium 3.4 L (3.5-5.1) mmol/L Chloride 114 H (98-107) mmol/L POC Glucose (mg/dL) 113 H (75-99) mg/dL Calcium 8.3 L (8.4-10.2) mg/dL 02/09/17 Range/Units 10:42 WBC (3.8-10.6) k/uL Plt Count (150-450) k/uL Neutrophils # (1.3-7.7) k/uL Sodium (137-145) mmol/L Potassium 3.2 L (3.5-5.1) mmol/L Chloride (98-107) mmol/L POC Glucose (mg/dL) (75-99) mg/dL Calcium (8.4-10.2) mg/dL Assessment and Plan Plan: Assessment 1 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 The patient remains seizure-free 2 change in mental status, essentially secondary to delirium tremens, recovered 3 acute hypoxic respiratory failure, recovered and the patient is currently off the BiPAP 4 acute right lower lobe consolidation/aspiration pneumonia, improving, on Zosyn 5 CHF with ejection fraction of 20%, rule out alcoholic cardiomyopathy, rule out cocaine induced, rule out ischemic myopathy 6 hypothyroidism 7 history of marijuana and cocaine abuse 8 hypertension 9 bipolar disorder 10 chronic anxiety disorder 11 GERD 12 alcoholism Plan Continue IV Zosyn for an aspiration pneumonia of the right lung. Aspiration precautions. Continue monitoring the patient's encephalopathy and the patient seems to be recovering from delirium tremens. Continue same protocol for delirium tremens. Increased level of activity as tolerated. Move the patient today medical surgical unit for further recovery and the patient will be still placed on telemetry. We'll continue to follow.
[2017-02-09 13:56] VITALS: BMI 22.4
[2017-02-09] MEDS: QUEtiapine 50 MG TAB PO SCH (20:03)
--- NOTE | 2017-02-09 20:20 | PN ---
DATE OF SERVICE: 02/08/2017 CHIEF COMPLAINT: Grand mal seizure with ( ) depression and anoxic brain injury. HISTORY OF PRESENT ILLNESS: This gentleman is slowly becoming more awake and alert. He is completely disoriented. He has no focal neurologic deficits. PHYSICAL EXAMINATION: CHEST: Clear. CARDIAC: Normal. ABDOMEN: Soft, nontender. IMPRESSION: 1. Anoxic brain injury. 2. Grand mal seizure. 3. ( ) depression. PLAN: 1. Slowly progress activity. 2. Try to establish ability to swallow with another swallow evaluation.
--- NOTE | 2017-02-09 20:30 | PN ---
DATE OF SERVICE: 02/09/2017 CHIEF COMPLAINT: Anoxic brain injury, seizure disorder. HISTORY OF PRESENT ILLNESS: This gentleman is stabilized but he is still very confused. He is probably reaching the point where he could be safely transferred out to regular floor. PHYSICAL EXAMINATION: He is more awake and alert. Vital signs are normal. However, he is completely disoriented. IMPRESSION: 1. Grand mal seizure disorder. 2. Postictal depression. 3. Anoxic brain injury. 4. Frequent premature ventricular contractions. PLAN: Progress activity and possibly move out of ICU soon.
--- NOTE | 2017-02-09 23:55 | P.PN ---
Subjective This is a 61-year-old right-handed white male who is being followed in the intensive care unit for seizure disorder. Patient has a history of severe alcohol abuse in the past. He is more awake and alert today and seems to be less agitated and less restless. He does have a sitter at bedside. He was able to answer simple questions today and continues to aspirate discharge to home. Chest x-ray reveals a right lower lobe pneumonia and he continues to be on IV Zosyn for treatment. Patient's breathing parameters have shown improvement. He shouldn't is on combination of Dilantin and Depakote for seizure prophylaxis. His Depakote level yesterday was therapeutic at 52.8. His Dilantin level today is 8.0. We will continue close monitoring of this patient in the intensive care unit. We will plan to give way IV bolus of Dilantin and recheck level tomorrow. His EEG failed to reveal any evidence of status epilepticus or focal seizure disorder. His mental status continues to show improvement over the last several days. He does have evidence of a diffuse encephalopathy. Patient is Depakote level has remained therapeutic. He is being considered for possible transfer out of the ICU later today. We will continue close neurological follow-up of this patient in the ICU. Objective - Vital Signs Vital signs: Vital Signs Temp 98.2 F 02/09/17 08:00 Pulse 94 02/09/17 10:00 Resp 18 02/09/17 10:00 BP 135/80 02/09/17 10:00 Pulse Ox 90 L 02/09/17 10:00 Intake & Output 02/08/17 02/09/17 02/09/17 18:59 06:59 18:59 Intake Total 2448.7 1212.5 662.5 Output Total 500 600 Balance 1948.7 612.5 662.5 Weight 79.4 kg Intake: IV 1237.5 1212.5 462.5 Dextrose 5% in Water 1, 300 000 ml @ 100 mls/hr IV . Q10H7M ANJELICA with Mvi, Adult No.4 with Vit K 10 ml with Thiamine 100 mg with Folic Acid 1 mg Rx#: [id number] MVI 200 1200 400 Mvi, Adult No.4 with Vit 600 K 10 ml Thiamine 100 mg Folic Acid 1 mg In Sodium Chloride 0.9% 1,000 ml @ 75 mls/hr IV .BY DURATION [facility] Rx#: [id number] Piperacillin-Tazobactam 3 87.5 12.5 12.5 .375 gm In Dextrose/Water 1 50ml.bag @ 12.5 mls/hr IVPB Q8HR ANJELICA Rx#: [id number] Valproate Sodium 1,000 mg 50 50 In Sodium Chloride 0.9% 50 ml @ 50 mls/hr IVPB Q12HR ANJELICA Rx#:[id number] Intake, IV Titration 1211.2 200 Amount Mvi, Adult No.4 with Vit 1011.2 K 10 ml Thiamine 100 mg Folic Acid 1 mg In Dextrose 5% in Water 1, 000 ml @ 100 mls/hr IV . BY DURATION [facility] Rx#: [id number] Phenytoin Sodium Inj 200 100 mg In Sodium Chloride 0.9 % 100 ml @ 200 mls/hr IV Q12HR ANJELICA Rx#:[id number] Potassium Chloride 10 meq 200 In Water For Injection 1 100ml.bag @ 100 mls/hr IVPB Q1H ANJELICA Rx#: [id number] Potassium Chloride 10 meq 100 Lidocaine 2% Inj 10 mg In Sodium Chloride 0.9% 100 ml @ 100 mls/hr IV Q1HR ANJELICA Rx#:[id number] Output: Urine 500 600 Other: Voiding Method Diaper Bedpan Bedpan Urinal Urinal Diaper Diaper # Voids 1 1 # Bowel Movements 1 - Exam Physical examination: PHYSICAL EXAMINATION: Patient is resting comfortably in bed. VITAL SIGNS: Blood pressure is [135/80]. Heart rate is [94]. Respiration is [18] . Temperature is [98.2]. HEENT: Head is atraumatic, neck is supple, there were no carotid bruits. CHEST: Lungs are clear to auscultation and percussion. CARDIAC: S1, S2 normal rate and rhythm. There is no murmur. ABDOMEN: Soft and nontender. Bowel sounds are present. EXTREMITIES: There is no pedal edema. Peripheral pulses are present. Neurological examination: Patient's neurological examination is unchanged from yesterday. Patient is laying in bed with BiPAP in place. He does seem to be more awake and alert today. He is moving all extremities. - Labs CBC & Chem 7: 02/09/17 04:51 02/09/17 16:25 Labs: Abnormal Lab Results - Last 24 Hours (Table) 02/09/17 02/09/17 02/09/17 Range/Units 04:51 04:51 07:26 WBC 12.4 H (3.8-10.6) k/uL Plt Count 101 L (150-450) k/uL Neutrophils # 9.0 H (1.3-7.7) k/uL Sodium 147 H (137-145) mmol/L Potassium 3.4 L (3.5-5.1) mmol/L Chloride 114 H (98-107) mmol/L POC Glucose (mg/dL) 113 H (75-99) mg/dL Calcium 8.3 L (8.4-10.2) mg/dL 02/09/17 Range/Units 10:42 WBC (3.8-10.6) k/uL Plt Count (150-450) k/uL Neutrophils # (1.3-7.7) k/uL Sodium (137-145) mmol/L Potassium 3.2 L (3.5-5.1) mmol/L Chloride (98-107) mmol/L POC Glucose (mg/dL) (75-99) mg/dL Calcium (8.4-10.2) mg/dL Assessment and Plan (1) Complex partial epilepsy Status: Acute Code(s): G40.209 - LOCAL-REL SYMPTC EPI W CMPLX PRT SEIZ,NOT NTRCT,W/O STAT EPI (2) Hypothyroidism Status: Acute Code(s): E03.9 - HYPOTHYROIDISM, UNSPECIFIED (3) Sepsis Status: Acute Code(s): A41.9 - SEPSIS, UNSPECIFIED ORGANISM (4) Drug abuse Status: Acute Code(s): F19.10 - OTHER PSYCHOACTIVE SUBSTANCE ABUSE, UNCOMPLICATED Plan: This patient is a 61-year-old male being evaluated for seizure disorder. He is currently on Depakote and Dilantin for seizure management. His anticonvulsant blood levels were checked today and are therapeutic. He shouldn't has been able to come off of his BiPAP machine most of today. He has intermittent episodes of confusion. His EEG failed to reveal any evidence of status epilepticus or seizure focus. He had a very rough night yesterday evening. He pulled out his Hargrove catheter twice. He has been agitated off and on since that time. Patient states he just wants to go home. We will adjust his anticonvulsant medications today and recheck levels in the morning. We will continue him on his current anticonvulsant medications. Patient does have history of underlying bipolar disorder. This may be contributing to some of his agitation. Patient does seem to be more calm today in the ICU setting. He is less agitated and does follow simple commands. He is to continue with his current anticonvulsant medications. His Depakote level was checked today and is in the therapeutic range. Hopefully he may be able to wean off of Dilantin gradually over the next few days. We will continue close neurological follow- up with this patient in the intensive care unit. Patient is being considered for possible transfer out of the intensive care unit if his mental status remains stable. His overall prognosis at this time remains very guarded.
[2017-02-10] MEDS: LORazepam 2 MG/ML SYRINGE IV PRN (03:26)
[2017-02-10] MEDS: ASPIRIN 81 MG CHEW PO SCH (07:59)
[2017-02-10] MEDS: METOPROLOL TARTRATE 25 MG TAB PO SCH ×3 (07:59→20:38)
[2017-02-10] MEDS: ENOXAPARIN 40 MG/0.4 ML SYRINGE SQ SCH (07:59)
[2017-02-10] MEDS: CHOLECALCIFEROL 1,000 UNIT TAB PO SCH (07:59)
[2017-02-10] MEDS: LOSARTAN 50 MG TAB PO SCH (08:00)
[2017-02-10] MEDS: VENLAFAXINE HCL ER 75 MG CAP PO SCH (08:00)
[2017-02-10] MEDS: FAMOTIDINE 20 MG TAB PO SCH (08:34)
[2017-02-10] MEDS: LEVOTHYROXINE 75 MCG TAB PO SCH (09:04)
[2017-02-10] MEDS: PANTOPRAZOLE 40 MG TABLET PO SCH (09:04)
[2017-02-10] MEDS: PHENYTOIN SODIUM EXTENDED 100 MG CAP PO SCH ×2 (09:04→20:38)
[2017-02-10] MEDS: DIVALPROEX 500 MG TABLET.DR PO SCH ×2 (09:05→20:39)
[2017-02-10] MEDS: PIPERACILLIN-TAZOBACTAM 3.375 GM in DEXTROSE/WATER 1 50ML.BAG IVPB SCH (09:06)
[2017-02-10] MEDS: CEPHALEXIN 500 MG CAP PO SCH ×3 (11:20→20:38)
--- NOTE | 2017-02-10 12:39 | P.PN ---
Subjective This patient is a 61-year-old right-handed white male who has underlying history of seizure disorder and hypertension. Apparently he was having a seizure at home which lasted about 2 minutes in duration. He had a second seizure in the emergency room. Patient has a history of underlying seizure disorder for which she has been taking Depakote. His seizure in the emergency room lasted about 1 minute in duration with some postictal confusion. Patient was sent for computed tomography scan of the brain which revealed no acute abnormality. His drug screen did come back positive for marijuana as well as cocaine. He was given Ativan in the emergency room and then transferred to [facility]. An A Team Code was initiated as a patient went into a episode of snorous breathing and possible recurrent seizure. He was started on IV Dilantin and transferred to the intensive care unit. Patient was given another dose of Ativan in the ICU and his Dilantin was initiated. We switched the patient to IV Depacon and IV Dilantin for further seizure management. We recommended placing him on IV Depacon thousand milligrams IVP he back every 12 hours. He is currently on Dilantin with a maintenance dose of 100 mg IV piggyback every 8 hours. The patient remains lethargic and obtunded in the intensive care unit. He has had no further active seizure noted by the ICU nursing staff. Patient was noted in the ER to have left lateral eye gaze. This suggests seizure focus emanating from the right hemisphere. Patient continues to remain postictal. It is unclear whether the patient has been having frequent breakthrough seizures Over the past 24hours the patient has been in the intensive care unit, and the patient was not witnessed to have any seizure. His current antiepileptic medication includes a combination of Dilantin and valproic acid. The Dilantin level is at 8.8 and the patient will receive another 200 mg of IV Dilantin and his maintenance dose will be 200 mg IV every 12 hours. He is also on valproic acid and the level was 61.5. The patient is moving all 4 extremities. He occasionally gets confused and thrashes. He had required Ativan during this ICU stay and his last Ativan dose was 1 milligram around 8am this morning. There is a concern that the patient is also withdrawing from alcohol knowing that he has also history of alcoholism and he is currently on the CIOK protocol. Furthermore, the patient had an echocardiogram this morning that showed a poor LV function with ejection fraction of 20% and there is mild aortic sclerosis and mild tricuspid and mitral regurgitation. There is no evidence of any pulmonary hypertension. No evidence of any pericardial effusion. Chest x-ray remains abnormal with a large right lower lobe consolidation which probably is a representation of an underlying aspiration pneumonia..Furthermore, the patient was having labored breathing earlier this morning in conjunction with this right lower lobe findings and based on that the patient was placed on a BiPAP with settings of 10 and 500 FiO2 of 70%. The patient is much more comfortable while being on a BiPAP treatment at this point. Breathing is less labored. On 02/06/2017 I'm seeing this patient in follow-up. The patient is currently on a BiPAP at a pressure of 12/8 cm and an FiO2 of 50%. He is not snoring and is quite synchronous with the BiPAP machine. His chest x-ray shows improvement in the right lower lobe pulmonary infiltrates which is felt to be related to an aspiration pneumonia. I started this patient IV Zosyn. Neurologically, the patient is not having any seizure activity. He is on a combination of Depakote and Dilantin. Levels need to be rechecked and neurologist on the case. Meanwhile we confronted the patient is an alcoholic. His symptoms were also suggestive of delirium tremens and the patient is being treated with Ativan and overnight he received a total of 8 mg of Ativan. This morning it is quite comfortable and somnolent and sleepy. He did wake up earlier this morning and he was given a brief period off the BiPAP. He answered some simple questions and follows some commands. He seems to be much more appropriate compared to yesterday. Neurologic exam remains nonfocal. No chills. No fever. No nausea. No vomiting. The patient is still nothing by mouth for now. He did pass also a bedside swallow evaluation. The patient is seen again today 02/07/2017 in follow-up in the intensive care unit. He was quite restless and agitated last night requiring several doses of Haldol and Ativan. He has been off the BiPAP and is maintaining good O2 saturations in the 90s on 5 L/m per nasal cannula. He does have elevated temperature today currently on 100.7. He remains on Zosyn. He is difficult to arouse this morning secondary to sedation. He does respond to loud verbal stimuli and answering questions appropriately. He is moving all fours. He did pass a swallow evaluation neurology is on the case regarding his history of seizures. No seizure activity throughout the evening. He is seen again today in follow-up 02/08/2017 in the intensive care unit. He is more awake and alert today as compared to yesterday. He is still somewhat confused as to time and place and slow to respond. He was restless earlier and had Haldol and Ativan approximately 5 AM today. He has not had any further seizure activity remains off the BiPAP since early yesterday morning. He is maintaining good O2 saturations in the 90s on 5 L/m per nasal cannula. Really tachycardic at 104. Otherwise hemodynamically stable. Current temperature 99.2. He remains on IV Zosyn. His sodium is slightly improved currently 150. He has been drinking small amounts of clear liquids but did choke at one point. Bedside swallow evaluation is pending. A sitter remains at the bedside. The patient is seen again today 02/10/2017 on the regular medical floor. He is awake and alert in no acute distress. He has been afebrile. Maintaining good O2 saturations in the upper 90s on room air. He has not required any BiPAP support and approximately 48 hours. Yesterday's chest x-ray showed improvement in the right lower lung pneumonia. He is still requiring occasional Ativan for restlessness. Objective - Vital Signs Vital signs: Vital Signs Temp 97.7 F 02/10/17 07:00 Pulse 92 02/10/17 07:00 Resp 19 02/10/17 07:00 BP 113/71 02/10/17 07:00 Pulse Ox 96 02/10/17 12:06 Intake & Output 02/09/17 02/10/17 02/10/17 18:59 06:59 18:59 Intake Total 1500.0 300 Balance 1500.0 300 Weight 79.4 kg Intake: IV 1300.0 100 D5 600 100 MVI 600 Piperacillin-Tazobactam 3 50.0 .375 gm In Dextrose/Water 1 50ml.bag @ 12.5 mls/hr IVPB Q8HR ANJELICA Rx#: [id number] Valproate Sodium 1,000 mg 50 In Sodium Chloride 0.9% 50 ml @ 50 mls/hr IVPB Q12HR ANJELICA Rx#:[id number] Intake, IV Titration 200 Amount Phenytoin Sodium Inj 200 100 mg In Sodium Chloride 0.9 % 100 ml @ 200 mls/hr IV Q12HR [facility] Rx#:[id number] Potassium Chloride 10 meq 100 Lidocaine 2% Inj 10 mg In Sodium Chloride 0.9% 100 ml @ 100 mls/hr IV Q1HR ANJELICA Rx#:[id number] Oral 200 Other: Voiding Method Bedside Commode Urinal Urinal Urinal Diaper # Voids 1 3 # Bowel Movements 1 2 - Exam Head exam was generally normal. There was no scleral icterus or corneal arcus. Mucous membranes were moist.Neck was supple and without jugular venous distension, thyromegaly, or carotid bruits. Carotids were easily palpable bilaterally. There was no adenopathy.Cardiac exam revealed the PMI to be normally situated and sized. The rhythm was regular and no extrasystoles were noted during several minutes of auscultation. The first and second heart sounds were normal and physiologic splitting of the second heart sound was noted. There were no murmurs, rubs, clicks, or gallops. Lungs sounds are diminished in the right lung base along with some right basilar crackles.Abdominal exam revealed normal bowel sounds. The abdomen was soft, non-tender, and without masses, organomegaly, or appreciable enlargement of the abdominal aorta.Examination of the extremities revealed easily palpable radial, femoral and pedal pulses. There was no cyanosis, clubbing or edema. Neurologically the patient will undergo 4 extremities. He is quite strong. He cannot follow commands consistently and his level of focus and attention is limited to one as the patient can easily gets distracted and does not follow particular or complex commands. - Labs CBC & Chem 7: 02/09/17 04:51 02/09/17 16:25 Assessment and Plan Plan: Assessment 1 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 It is likely that the patient was having alcoholic seizures or alcohol-induced seizures or alcohol even lowering the threshold of his chronic seizure disorder/ epilepsy. As such the patient is on a combination of Depakote and Dilantin. He is seizure free for the time being. He may be also recovering from a postictal state. 02/07/2017 the patient did not have any further seizure activity last evening. 02/08/2017 no further seizure activity. 2 change in mental status, rule out postictal state. Rule out alcoholic encephalopathy/delirium tremens. The patient is being treated for both. His seizures are under good control. The patient on Ativan for symptoms of delirium tremens. 02/07/2017 the patient was restless and agitated throughout the evening and did require alternating doses between Haldol and Ativan. 02/08/2017 the patient is more awake and alert today as compared to yesterday. He is still occasionally requiring Haldol and Ativan as he can become quite restless and agitated. 3 acute hypoxic respiratory failure, currently off BiPAP for greater than 24 hours. The patient has improved and is currently on room air. 4 acute right lower lobe consolidation/aspiration pneumonia 5 CHF with ejection fraction of 20%, rule out alcoholic cardiomyopathy, rule out cocaine induced, rule out ischemic myopathy 6 hypothyroidism 7 history of marijuana and cocaine abuse 8 hypertension 9 bipolar disorder 10 chronic anxiety disorder 11 GERD 12 alcoholism 13 Hypernatremia, current sodium 150. Plan: The patient was seen and evaluated by Dr. Robles. The patient is more awake and alert today as compared to yesterday. He is maintaining good O2 saturations in the 90s on room air. We will follow the patient on as-needed basis.
[2017-02-10] MEDS: QUEtiapine 50 MG TAB PO SCH (20:39)
[2017-02-11] MEDS: LEVOTHYROXINE 75 MCG TAB PO SCH (06:31)
[2017-02-11] MEDS: VENLAFAXINE HCL ER 75 MG CAP PO SCH (08:09)
[2017-02-11] MEDS: METOPROLOL TARTRATE 25 MG TAB PO SCH ×3 (08:10→20:49)
[2017-02-11] MEDS: LOSARTAN 50 MG TAB PO SCH (08:10)
[2017-02-11] MEDS: CHOLECALCIFEROL 1,000 UNIT TAB PO SCH (08:10)
[2017-02-11] MEDS: CEPHALEXIN 500 MG CAP PO SCH ×4 (08:10→20:50)
[2017-02-11] MEDS: ASPIRIN 81 MG CHEW PO SCH (08:10)
[2017-02-11] MEDS: PANTOPRAZOLE 40 MG TABLET PO SCH (08:10)
[2017-02-11] MEDS: DIVALPROEX 500 MG TABLET.DR PO SCH ×2 (08:10→20:49)
[2017-02-11] MEDS: PHENYTOIN SODIUM EXTENDED 100 MG CAP PO SCH ×2 (08:10→20:49)
[2017-02-11] MEDS: ENOXAPARIN 40 MG/0.4 ML SYRINGE SQ SCH (08:10)
--- NOTE | 2017-02-11 10:46 | P.PN ---
Subjective This is a 61-year-old right-handed white male who is being followed in the intensive care unit for seizure disorder. Patient has a history of severe alcohol abuse in the past. He is more awake and alert today and seems to be less agitated and less restless. He does have a sitter at bedside. He was able to answer simple questions today and continues to aspirate discharge to home. Chest x-ray reveals a right lower lobe pneumonia and he continues to be on IV Zosyn for treatment. Patient's breathing parameters have shown improvement. He shouldn't is on combination of Dilantin and Depakote for seizure prophylaxis. His Depakote level yesterday was therapeutic at 68.9. His Dilantin level today is 8.0. We will continue close monitoring of this patient in the intensive care unit. We will plan to give way IV bolus of Dilantin and recheck level tomorrow. His EEG failed to reveal any evidence of status epilepticus or focal seizure disorder. His mental status continues to show improvement over the last several days. He does have evidence of a diffuse encephalopathy. Patient is Depakote level has remained therapeutic. Patient is now being followed on the medical floor. He does seem to be somewhat better and his overall mental status then initial presentation to the ICU. He has evidence of diffuse encephalopathy that is also slowly improving. We will continue close neurological follow-up of this patient in the ICU. Objective - Vital Signs Vital signs: Vital Signs Temp 97.8 F 02/10/17 15:00 Pulse 88 02/10/17 15:00 Resp 20 02/10/17 15:00 BP 112/73 02/10/17 15:00 Pulse Ox 96 02/10/17 15:00 Intake & Output 02/10/17 02/10/17 02/11/17 06:59 18:59 06:59 Intake Total 300 Balance 300 Intake: IV 100 D5 100 Oral 200 Other: Voiding Method Urinal Urinal # Voids 3 3 0 # Bowel Movements 2 1 0 - Exam Physical examination: PHYSICAL EXAMINATION: Patient is resting comfortably in bed. VITAL SIGNS: Blood pressure is [112/73]. Heart rate is [88]. Respiration is [20] . Temperature is [97.8]. HEENT: Head is atraumatic, neck is supple, there were no carotid bruits. CHEST: Lungs are clear to auscultation and percussion. CARDIAC: S1, S2 normal rate and rhythm. There is no murmur. ABDOMEN: Soft and nontender. Bowel sounds are present. EXTREMITIES: There is no pedal edema. Peripheral pulses are present. Neurological examination: Patient's neurological examination is unchanged from yesterday. Patient is laying in bed with BiPAP in place. He does seem to be more awake and alert today. He is moving all extremities. - Labs CBC & Chem 7: 02/09/17 04:51 02/09/17 16:25 Assessment and Plan (1) Complex partial epilepsy Status: Acute Code(s): G40.209 - LOCAL-REL SYMPTC EPI W CMPLX PRT SEIZ,NOT NTRCT,W/O STAT EPI (2) Hypothyroidism Status: Acute Code(s): E03.9 - HYPOTHYROIDISM, UNSPECIFIED (3) Sepsis Status: Acute Code(s): A41.9 - SEPSIS, UNSPECIFIED ORGANISM (4) Drug abuse Status: Acute Code(s): F19.10 - OTHER PSYCHOACTIVE SUBSTANCE ABUSE, UNCOMPLICATED Plan: This patient is a 61-year-old male being evaluated for seizure disorder. He is currently on Depakote and Dilantin for seizure management. His anticonvulsant blood levels were checked today and are therapeutic. He shouldn't has been able to come off of his BiPAP machine most of today. He has intermittent episodes of confusion. His EEG failed to reveal any evidence of status epilepticus or seizure focus. He had a very rough night yesterday evening. He pulled out his Hargrove catheter twice. He has been agitated off and on since that time. Patient states he just wants to go home. We will adjust his anticonvulsant medications today and recheck levels in the morning. We will continue him on his current anticonvulsant medications. Patient does have history of underlying bipolar disorder. This may be contributing to some of his agitation. Patient does seem to be more calm today in the ICU setting. He is less agitated and does follow simple commands. He is to continue with his current anticonvulsant medications. His Depakote level was checked today and is in the therapeutic range. Depakote is 68.9. Hopefully he may be able to wean off of Dilantin gradually over the next few days. Patient was transferred out of the ICU and seems to be doing fairly well on the medical floor. We will continue to monitor his overall neurological status closely. We will recheck his anticonvulsant blood levels tomorrow morning for further assessment. His overall prognosis at this time remains very guarded.
--- NOTE | 2017-02-11 16:18 | P.PN ---
Subjective This patient is a 61-year-old right-handed white male who has underlying history of seizure disorder and hypertension. Apparently he was having a seizure at home which lasted about 2 minutes in duration. He had a second seizure in the emergency room. Patient has a history of underlying seizure disorder for which she has been taking Depakote. His seizure in the emergency room lasted about 1 minute in duration with some postictal confusion. Patient was sent for computed tomography scan of the brain which revealed no acute abnormality. His drug screen did come back positive for marijuana as well as cocaine. He was given Ativan in the emergency room and then transferred to [facility]. An A Team Code was initiated as a patient went into a episode of snorous breathing and possible recurrent seizure. He was started on IV Dilantin and transferred to the intensive care unit. Patient was given another dose of Ativan in the ICU and his Dilantin was initiated. We switched the patient to IV Depacon and IV Dilantin for further seizure management. We recommended placing him on IV Depacon thousand milligrams IVP he back every 12 hours. He is currently on Dilantin with a maintenance dose of 100 mg IV piggyback every 8 hours. The patient remains lethargic and obtunded in the intensive care unit. He has had no further active seizure noted by the ICU nursing staff. Patient was noted in the ER to have left lateral eye gaze. This suggests seizure focus emanating from the right hemisphere. Patient continues to remain postictal. It is unclear whether the patient has been having frequent breakthrough seizures Over the past 24hours the patient has been in the intensive care unit, and the patient was not witnessed to have any seizure. His current antiepileptic medication includes a combination of Dilantin and valproic acid. The Dilantin level is at 8.8 and the patient will receive another 200 mg of IV Dilantin and his maintenance dose will be 200 mg IV every 12 hours. He is also on valproic acid and the level was 61.5. The patient is moving all 4 extremities. He occasionally gets confused and thrashes. He had required Ativan during this ICU stay and his last Ativan dose was 1 milligram around 8am this morning. There is a concern that the patient is also withdrawing from alcohol knowing that he has also history of alcoholism and he is currently on the CINJ protocol. Furthermore, the patient had an echocardiogram this morning that showed a poor LV function with ejection fraction of 20% and there is mild aortic sclerosis and mild tricuspid and mitral regurgitation. There is no evidence of any pulmonary hypertension. No evidence of any pericardial effusion. Chest x-ray remains abnormal with a large right lower lobe consolidation which probably is a representation of an underlying aspiration pneumonia..Furthermore, the patient was having labored breathing earlier this morning in conjunction with this right lower lobe findings and based on that the patient was placed on a BiPAP with settings of 10 and 500 FiO2 of 70%. The patient is much more comfortable while being on a BiPAP treatment at this point. Breathing is less labored. On 02/06/2017 I'm seeing this patient in follow-up. The patient is currently on a BiPAP at a pressure of 12/8 cm and an FiO2 of 50%. He is not snoring and is quite synchronous with the BiPAP machine. His chest x-ray shows improvement in the right lower lobe pulmonary infiltrates which is felt to be related to an aspiration pneumonia. I started this patient IV Zosyn. Neurologically, the patient is not having any seizure activity. He is on a combination of Depakote and Dilantin. Levels need to be rechecked and neurologist on the case. Meanwhile we confronted the patient is an alcoholic. His symptoms were also suggestive of delirium tremens and the patient is being treated with Ativan and overnight he received a total of 8 mg of Ativan. This morning it is quite comfortable and somnolent and sleepy. He did wake up earlier this morning and he was given a brief period off the BiPAP. He answered some simple questions and follows some commands. He seems to be much more appropriate compared to yesterday. Neurologic exam remains nonfocal. No chills. No fever. No nausea. No vomiting. The patient is still nothing by mouth for now. He did pass also a bedside swallow evaluation. The patient is seen again today 02/07/2017 in follow-up in the intensive care unit. He was quite restless and agitated last night requiring several doses of Haldol and Ativan. He has been off the BiPAP and is maintaining good O2 saturations in the 90s on 5 L/m per nasal cannula. He does have elevated temperature today currently on 100.7. He remains on Zosyn. He is difficult to arouse this morning secondary to sedation. He does respond to loud verbal stimuli and answering questions appropriately. He is moving all fours. He did pass a swallow evaluation neurology is on the case regarding his history of seizures. No seizure activity throughout the evening. He is seen again today in follow-up 02/08/2017 in the intensive care unit. He is more awake and alert today as compared to yesterday. He is still somewhat confused as to time and place and slow to respond. He was restless earlier and had Haldol and Ativan approximately 5 AM today. He has not had any further seizure activity remains off the BiPAP since early yesterday morning. He is maintaining good O2 saturations in the 90s on 5 L/m per nasal cannula. Really tachycardic at 104. Otherwise hemodynamically stable. Current temperature 99.2. He remains on IV Zosyn. His sodium is slightly improved currently 150. He has been drinking small amounts of clear liquids but did choke at one point. Bedside swallow evaluation is pending. A sitter remains at the bedside. The patient is seen again today 02/10/2017 on the regular medical floor. He is awake and alert in no acute distress. He has been afebrile. Maintaining good O2 saturations in the upper 90s on room air. He has not required any BiPAP support and approximately 48 hours. Yesterday's chest x-ray showed improvement in the right lower lung pneumonia. He is still requiring occasional Ativan for restlessness. On 02/11/2017, the patient remains quite stable he had no major respiratory difficulties for now. No signs of delirium tremens. He is much more appropriate. He is off oxygen. He is interested in his gait and he is undergoing physical therapy. No seizure activity has been noted. Neurology has been following up the patient and adjusting the antiepileptic medications. Objective - Vital Signs Vital signs: Vital Signs Temp 99.3 F 02/11/17 15:00 Pulse 94 02/11/17 15:00 Resp 17 02/11/17 15:00 BP 103/55 02/11/17 15:00 Pulse Ox 92 L 02/11/17 15:00 Intake & Output 02/10/17 02/11/17 02/11/17 18:59 06:59 18:59 Intake Total 350 Balance 350 Intake: Oral 350 Other: Voiding Method Urinal Urinal # Voids 3 1 2 # Bowel Movements 1 3 - Exam Head exam was generally normal. There was no scleral icterus or corneal arcus. Mucous membranes were moist.Neck was supple and without jugular venous distension, thyromegaly, or carotid bruits. Carotids were easily palpable bilaterally. There was no adenopathy. Lung sounds are diminished bilaterally otherwise clear.Cardiac exam revealed the PMI to be normally situated and sized. The rhythm was regular and no extrasystoles were noted during several minutes of auscultation. The first and second heart sounds were normal and physiologic splitting of the second heart sound was noted. There were no murmurs , rubs, clicks, or gallops.Abdominal exam revealed normal bowel sounds. The abdomen was soft, non-tender, and without masses, organomegaly, or appreciable enlargement of the abdominal aorta.Examination of the extremities revealed easily palpable radial, femoral and pedal pulses. There was no cyanosis, clubbing or edema. Neurologic exam is nonfocal and the patient is gradually recovering from his encephalopathy. No delusions. No hallucinations. He seems to be much more appropriate. No tremors at this point. - Labs CBC & Chem 7: 02/09/17 04:51 02/09/17 16:25 Assessment and Plan Plan: Assessment 1 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 The patient remains seizure-free and the levels of anticonvulsive medications being managed by neurology. 2 change in mental status, essentially secondary to delirium tremens, recovered 3 acute hypoxic respiratory failure, recovered 4 acute right lower lobe consolidation/aspiration pneumonia, improving, on Zosyn 5 CHF with ejection fraction of 20%, rule out alcoholic cardiomyopathy, rule out cocaine induced, rule out ischemic myopathy 6 hypothyroidism 7 history of marijuana and cocaine abuse 8 hypertension 9 bipolar disorder 10 chronic anxiety disorder 11 GERD 12 alcoholism Plan Discontinue the Zosyn and switch this patient to oral Keflex and I'm agreeable to the switch. Management of anticonvulsant per neurology. Pulmonary and critical care will sign off the case.
--- NOTE | 2017-02-11 18:43 | PN ---
CHIEF COMPLAINT: Encephalopathy. HISTORY OF PRESENT ILLNESS: This gentleman is doing a little bit better each day. He is a little bit more awake and alert and more oriented each day. PHYSICAL EXAM: His chest is clear. Cardiac is normal. The abdomen is soft and nontender. He is awake and alert, but still a little bit confused. IMPRESSION: 1. Anoxic encephalopathy following a grand mal seizure. 2. Postictal depression. PLAN: Continue supportive care and increase activity, as well as providing ST, OT and PT.
[2017-02-11] MEDS ORDERED: SODIUM CHLORIDE 0.9% IVPB ONE (20:30)
[2017-02-11] MEDS ORDERED: VALPROATE SODIUM IVPB ONE (20:30)
[2017-02-11] MEDS: QUEtiapine 50 MG TAB PO SCH (20:49)
--- NOTE | 2017-02-11 21:48 | P.PN ---
Subjective This is a 61-year-old right-handed white male who is being followed in the intensive care unit for seizure disorder. Patient has a history of severe alcohol abuse in the past. He is more awake and alert today and seems to be less agitated and less restless. He does have a sitter at bedside. He was able to answer simple questions today and continues to aspirate discharge to home. Chest x-ray reveals a right lower lobe pneumonia and he continues to be on IV Zosyn for treatment. Patient's breathing parameters have shown improvement. He shouldn't is on combination of Dilantin and Depakote for seizure prophylaxis. His anticonvulsant blood levels today reveal his Dilantin level to be 5.3. His Depakote level was 30.1. This is dropped below the therapeutic range for Depakote. We will give the patient a bolus of IV Depacon 800 mg 1 tonight. We will repeat Depakote level for tomorrow morning. Anticipate the patient may be able to wean off of Dilantin provided his Depakote level stays therapeutic. Patient continues to show slow improvement in his overall mental status. His EEG failed to reveal any evidence of status epilepticus or focal seizure disorder. His mental status continues to show improvement over the last several days. He does have evidence of a diffuse encephalopathy. Patient is Depakote level had remained therapeutic. Patient is now being followed on the medical floor. He does seem to be somewhat better and his overall mental status then initial presentation to the ICU. He has evidence of diffuse encephalopathy that is also slowly improving. We will continue close neurological follow-up of this patient in the ICU. We will recheck his anticonvulsant blood levels tomorrow morning. His overall prognosis at this time remains guarded. Objective - Vital Signs Vital signs: Vital Signs Temp 99.3 F 02/11/17 15:00 Pulse 94 02/11/17 15:00 Resp 17 02/11/17 15:00 BP 103/55 02/11/17 15:00 Pulse Ox 92 L 02/11/17 15:00 Intake & Output 02/11/17 02/11/17 02/12/17 06:59 18:59 06:59 Intake Total 350 Balance 350 Intake: Oral 350 Other: Voiding Method Urinal # Voids 1 2 0 # Bowel Movements 3 0 - Exam Physical examination: PHYSICAL EXAMINATION: Patient is resting comfortably in bed. VITAL SIGNS: Blood pressure is [103/55]. Heart rate is [94]. Respiration is [17] . Temperature is [99.3]. HEENT: Head is atraumatic, neck is supple, there were no carotid bruits. CHEST: Lungs are clear to auscultation and percussion. CARDIAC: S1, S2 normal rate and rhythm. There is no murmur. ABDOMEN: Soft and nontender. Bowel sounds are present. EXTREMITIES: There is no pedal edema. Peripheral pulses are present. Neurological examination: Patient's neurological examination is unchanged from yesterday. - Labs CBC & Chem 7: 02/09/17 04:51 02/09/17 16:25 Assessment and Plan (1) Complex partial epilepsy Status: Acute Code(s): G40.209 - LOCAL-REL SYMPTC EPI W CMPLX PRT SEIZ,NOT NTRCT,W/O STAT EPI (2) Hypothyroidism Status: Acute Code(s): E03.9 - HYPOTHYROIDISM, UNSPECIFIED (3) Sepsis Status: Acute Code(s): A41.9 - SEPSIS, UNSPECIFIED ORGANISM (4) Drug abuse Status: Acute Code(s): F19.10 - OTHER PSYCHOACTIVE SUBSTANCE ABUSE, UNCOMPLICATED Plan: This patient is a 61-year-old male initially admitted to Hospital with seizures and respiratory failure. He was intubated and slowly weaned off of his ventilator. He was placed on a combination of Dilantin and Depakote for seizure prophylaxis. His clinical history was one of delirium tremens. He is now been doing much better after being transferred out of the intensive care unit. His anticonvulsant blood levels today reveals Dilantin level to be 5.3. His Depakote level came back low at 30.1. He'll be given a IV bolus of IV Depacon 800 mg 1 tonight. We will recheck a Depakote level tomorrow morning. Hopefully he may be able to be placed on monotherapy with Depakote and that Dilantin may be slowly weaned off. We will continue to monitor his condition closely. He is more alert and is able to follow simple commands. We will reevaluate him again tomorrow and adjust his anticonvulsant medications if necessary. His overall prognosis at this time remains guarded.
[2017-02-12] MEDS: ENOXAPARIN 40 MG/0.4 ML SYRINGE SQ SCH (07:46)
[2017-02-12] MEDS: LOSARTAN 50 MG TAB PO SCH (07:47)
[2017-02-12] MEDS: DIVALPROEX 500 MG TABLET.DR PO SCH ×2 (07:47→22:23)
[2017-02-12] MEDS: VENLAFAXINE HCL ER 75 MG CAP PO SCH (07:47)
[2017-02-12] MEDS: ASPIRIN 81 MG CHEW PO SCH (07:47)
[2017-02-12] MEDS: CEPHALEXIN 500 MG CAP PO SCH ×4 (07:48→22:23)
[2017-02-12] MEDS: LEVOTHYROXINE 75 MCG TAB PO SCH (07:48)
[2017-02-12] MEDS: PHENYTOIN SODIUM EXTENDED 100 MG CAP PO SCH ×2 (07:48→22:23)
[2017-02-12] MEDS: METOPROLOL TARTRATE 25 MG TAB PO SCH ×3 (07:48→22:23)
[2017-02-12] MEDS: PANTOPRAZOLE 40 MG TABLET PO SCH (07:49)
[2017-02-12] MEDS: CHOLECALCIFEROL 1,000 UNIT TAB PO SCH (07:49)
--- NOTE | 2017-02-12 12:47 | FL ---
EXAMINATION TYPE: FL barium swallow w video DATE OF EXAM: 02/12/2017 11:39 AM COMPARISON: NONE HISTORY: Dysphasia TECHNIQUE: Fluoroscopy. FINDINGS: Fluoroscopic guidance was provided for the procedure performed in conjunction with the [facility] pathology department. Please see complete report forthcoming from the Speech Pathology departmen t. Various consistencies from thin liquid to solids were administered. No aspiration or penetration was evident. No significant pooling was observed in the vallecula. There was normal propulsion of the bolus. IMPRESSION: 1. Normal modified barium swallow.
--- NOTE | 2017-02-12 14:57 | P.PN ---
Subjective 61-year-old male being seen sitting up in bed this morning. Patient is symmetrically more awake and alert. The social work specialist did meet with the patient and the patient's daughter back to discuss the discharge plan. The patient and the patient's family chooses a rehab first preference [facility]. has been pleasant and cooperative Objective - Vital Signs Vital signs: Vital Signs Temp 98.7 F 02/12/17 07:00 Pulse 89 02/12/17 07:00 Resp 18 02/12/17 07:00 BP 131/80 02/12/17 07:00 Pulse Ox 92 L 02/12/17 07:00 Intake & Output 02/11/17 02/12/17 02/12/17 18:59 06:59 18:59 Output Total 100 Balance -100 Weight 79.4 kg Output: Urine 100 Other: Voiding Method Urinal # Voids 2 2 1 # Bowel Movements 0 - Exam Physical exam 61-year-old male resting in bed is oriented to self and place pleasant cooperative following simple commands Lungs essentially clear adequate air movement on room air Heart S1-S2 audible regular Abdomen flat nontender no reports of nausea vomiting no abdominal pain Extremities no edema noted - Labs CBC & Chem 7: 02/09/17 04:51 02/09/17 16:25 Assessment and Plan Plan: Impression 1 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 2 present on admission acute encephalopathy likely due to alcoholism with impending delirium tremens. 3 present on admission acute hypoxic respiratory failure multifactorial 4 acute right lower lobe pneumonia suspected aspiration 5 acute systolic CHF with ejection fraction of 20%, likely due to alcoholic and cocaine induced, 6 hypothyroidism 7 history of marijuana and cocaine abuse with a positive urine drug screen this admission for cocaine and marijuana 8 hypertension 9 bipolar disorder mood disorder 10 chronic anxiety disorder nonspecified 11 GERD #12 positive urine drug screen for cocaine and marijuana present on admission #13 present on admission febrile leukocytosis suspect sepsis not ruled out due to acute right lower lobe aspiration pneumonia Acute on chronic systolic congestive heart failure injection fraction 20% Acute dysphagia failed swallow eval Electrolyte morality hypernatremia and hypokalemia Severe cardiomyopathy systolic congestive heart failure EF 20% suspect due to alcoholism and cocaine Plan Repeat barium swallow normal modified barium swallow no aspiration or penetration evident Continue recommendations by neurology service defer to Seizure precautions Keflex as ordered DVT and GI prophylaxis Continue BiPAP support as ordered subacute rehab when medically stable The above dictated assessment and findings were discussed with Dr. Perez Impression and the plan of care have been dictated as directed. Sahara Hanson nurse practitioner acting as a scribe for Dr. Perez
--- NOTE | 2017-02-12 21:40 | PN ---
DATE OF SERVICE: 02/11/2017 CHIEF COMPLAINT: Grand mal seizure and anoxic encephalopathy. HISTORY OF PRESENT ILLNESS: This gentleman is doing better each day. He is becoming more awake and alert, but still slightly confused. PHYSICAL EXAMINATION: CHEST: Clear. The cardiac exam is normal. ABDOMEN: Soft, nontender and he has no focal neurologic deficits. IMPRESSION: 1. Anoxic brain injury. 2. Status post grand mal seizure. 3. Postictal depression. PLAN: Continued to follow and he may need post hospital rehab. It all depends on what happens with his cognitive function over the next several days.
[2017-02-12] MEDS: QUEtiapine 50 MG TAB PO SCH (22:23)
[2017-02-13] MEDS: VENLAFAXINE HCL ER 75 MG CAP PO SCH (08:45)
[2017-02-13] MEDS: LEVOTHYROXINE 75 MCG TAB PO SCH (08:45)
[2017-02-13] MEDS: PANTOPRAZOLE 40 MG TABLET PO SCH (08:45)
[2017-02-13] MEDS: METOPROLOL TARTRATE 25 MG TAB PO SCH ×3 (08:45→21:00)
[2017-02-13] MEDS: LOSARTAN 50 MG TAB PO SCH (08:45)
[2017-02-13] MEDS: PHENYTOIN SODIUM EXTENDED 100 MG CAP PO SCH ×2 (08:45→21:00)
[2017-02-13] MEDS: ASPIRIN 81 MG CHEW PO SCH (08:45)
[2017-02-13] MEDS: DIVALPROEX 500 MG TABLET.DR PO SCH ×2 (08:46→21:00)
[2017-02-13] MEDS: CEPHALEXIN 500 MG CAP PO SCH ×4 (08:46→21:00)
[2017-02-13] MEDS: CHOLECALCIFEROL 1,000 UNIT TAB PO SCH (08:46)
[2017-02-13] MEDS: ENOXAPARIN 40 MG/0.4 ML SYRINGE SQ SCH (08:46)
[2017-02-13] MEDS ORDERED: ONDANSETRON 4 MG/2 ML VIAL IVP PRN (11:43)
[2017-02-13] MEDS ORDERED: VALPROATE SODIUM 1,000 MG in SODIUM CHLORIDE 0.9% 50 ML IVPB STA (11:49)
--- NOTE | 2017-02-13 12:31 | P.PN ---
Subjective 61-year-old being seen on rounds this morning. Patient sitting up on the edge of the bed. Patient oriented to self and place. Discharge plan in progress. Patient would benefit from subacute rehab corrections caseworker pursuing placement Objective - Vital Signs Vital signs: Vital Signs Temp 98.3 F 02/13/17 07:00 Pulse 89 02/13/17 07:00 Resp 16 02/13/17 07:00 BP 157/81 02/13/17 07:00 Pulse Ox 94 L 02/13/17 07:00 Intake & Output 02/12/17 02/13/17 02/13/17 18:59 06:59 18:59 Weight 79.4 kg Other: # Voids 1 2 - Exam Physical exam 61-year-old male resting on the edge of the bed oriented to self and place pleasant cooperative following simple commands Lungs essentially clear adequate air movement on room air no shortness of breath Heart S1-S2 audible regular Abdomen flat nontender not distended bowel tones present tolerating a diet Extremities no edema noted - Labs CBC & Chem 7: 02/09/17 04:51 02/09/17 16:25 Assessment and Plan Plan: Impression 1 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 2 present on admission acute encephalopathy likely due to alcoholism with impending delirium tremens. 3 present on admission acute hypoxic respiratory failure multifactorial 4 acute right lower lobe pneumonia suspected aspiration 5 acute systolic CHF with ejection fraction of 20%, likely due to alcoholic and cocaine induced, 6 hypothyroidism 7 history of marijuana and cocaine abuse with a positive urine drug screen this admission for cocaine and marijuana 8 hypertension 9 bipolar disorder mood disorder 10 chronic anxiety disorder nonspecified 11 GERD #12 positive urine drug screen for cocaine and marijuana present on admission #13 present on admission febrile leukocytosis suspect sepsis not ruled out due to acute right lower lobe aspiration pneumonia Acute on chronic systolic congestive heart failure injection fraction 20% Acute dysphagia failed swallow eval Electrolyte morality hypernatremia and hypokalemia Severe cardiomyopathy systolic congestive heart failure EF 20% suspect due to alcoholism and cocaine Plan Seizure precautions Keflex as ordered DVT and GI prophylaxis discuss with Dr. Kirkland about the patient's seizure medication recommendations subacute rehab when medically stable The above dictated assessment and findings were discussed with Dr. Perez Impression and the plan of care have been dictated as directed. Sahara Hanson nurse practitioner acting as a scribe for Dr. Perez
--- NOTE | 2017-02-13 19:09 | P.PN ---
Subjective This is a 61-year-old right-handed white male who is being followed in the intensive care unit for seizure disorder. Patient has a history of severe alcohol abuse in the past. He is more awake and alert today and seems to be less agitated and less restless. He does have a sitter at bedside. He was able to answer simple questions today and continues to aspirate discharge to home. Chest x-ray reveals a right lower lobe pneumonia and he continues to be on IV Zosyn for treatment. Patient's breathing parameters have shown improvement. He is on combination of Dilantin and Depakote for seizure prophylaxis. His anticonvulsant blood levels today reveal his Dilantin level to be 5.3. His Depakote level was 26.0. This is dropped below the therapeutic range for Depakote. We will give the patient a bolus of IV Depacon 1000 mg 1 tonight. We will repeat Depakote level for tomorrow morning. Anticipate the patient may be able to wean off of Dilantin provided his Depakote level stays therapeutic. We will increase his maintenance dose of Depakote to 1500 mg by mouth twice a day. Patient continues to show slow improvement in his overall mental status. His EEG failed to reveal any evidence of status epilepticus or focal seizure disorder. His mental status continues to show improvement over the last several days. He does have evidence of a diffuse encephalopathy. Patient is Depakote level had remained therapeutic. Patient is now being followed on the medical floor. He does seem to be somewhat better and his overall mental status then initial presentation to the ICU. He has evidence of diffuse encephalopathy that is also slowly improving. We will recheck his anticonvulsant blood levels tomorrow morning. His overall prognosis at this time remains guarded. Objective - Vital Signs Vital signs: Vital Signs Temp 98.6 F 02/13/17 15:00 Pulse 93 02/13/17 15:00 Resp 16 02/13/17 15:00 BP 117/75 02/13/17 15:00 Pulse Ox 92 L 02/13/17 15:00 Intake & Output 02/12/17 02/13/17 02/13/17 18:59 06:59 18:59 Weight 79.4 kg Other: Voiding Method Urinal # Voids 1 2 4 - Exam Physical examination: PHYSICAL EXAMINATION: Patient is resting comfortably in bed. VITAL SIGNS: Blood pressure is [117/75]. Heart rate is [93]. Respiration is [16] . Temperature is [98.7]. HEENT: Head is atraumatic, neck is supple, there were no carotid bruits. CHEST: Lungs are clear to auscultation and percussion. CARDIAC: S1, S2 normal rate and rhythm. There is no murmur. ABDOMEN: Soft and nontender. Bowel sounds are present. EXTREMITIES: There is no pedal edema. Peripheral pulses are present. Neurological examination: Patient's neurological examination is unchanged from yesterday. - Labs CBC & Chem 7: 02/09/17 04:51 02/09/17 16:25 Assessment and Plan (1) Complex partial epilepsy Status: Acute Code(s): G40.209 - LOCAL-REL SYMPTC EPI W CMPLX PRT SEIZ,NOT NTRCT,W/O STAT EPI (2) Hypothyroidism Status: Acute Code(s): E03.9 - HYPOTHYROIDISM, UNSPECIFIED (3) Sepsis Status: Acute Code(s): A41.9 - SEPSIS, UNSPECIFIED ORGANISM (4) Drug abuse Status: Acute Code(s): F19.10 - OTHER PSYCHOACTIVE SUBSTANCE ABUSE, UNCOMPLICATED Plan: This patient is a 61-year-old male being followed for history of seizure disorder and initial respiratory distress. He has a long-standing history of seizure disorder and had been on Depakote monotherapy. He has a history of alcohol abuse and was admitted with severe hypoxic respiratory failure and was initially intubated. He is now on combination of Dilantin and Depakote. His Depakote level today was low at 26.0. We are recommending to give him IV bolus of IV Depacon thousand milligrams 1 today. We will repeat his Depakote level tomorrow morning. He is being considered for possible discharge home possibly tomorrow. He is also being evaluated for subacute rehab placement. We will continue to follow his overall progress closely during this admission. He has a history of severe cardiomyopathy and congestive heart failure with a ejection fraction of 20%. This is felt due to alcohol is and drug use. Overall the patient seems to be slowly showing improvement. We will continue close neurological follow-up with the patient during this admission.
[2017-02-13] MEDS: QUEtiapine 50 MG TAB PO SCH (21:00)
--- NOTE | 2017-02-14 06:17 | PN ---
DATE OF SERVICE: 02/12/2017 CHIEF COMPLAINT: Anoxic brain injury, status post grand mal seizure. HISTORY OF PRESENT ILLNESS: This gentleman is more awake and alert, but he is still very inappropriate. We are working on assisted placement. PHYSICAL EXAMINATION: Chest is clear. Cardiac exam is normal. ABDOMEN: Soft, nontender. IMPRESSION: 1. Anoxic brain injury and encephalopathy, improving. 2. Grand mal seizure disorder. PLAN: Continue to work on a discharge plan.
[2017-02-14] MEDS: LEVOTHYROXINE 75 MCG TAB PO SCH (06:33)
--- NOTE | 2017-02-14 06:36 | PN ---
DATE OF SERVICE: 02/13/2017 CHIEF COMPLAINT: Seizure disorder and encephalopathy. HISTORY OF PRESENT ILLNESS: This gentleman's condition is about the same and we are working on discharge plan. He is still inappropriate. PHYSICAL EXAM: Chest is clear. Cardiac exam is normal. ABDOMEN: Soft and nontender. IMPRESSION: Encephalopathy secondary to grand mal seizure. PLAN: Continue to work on a discharge location.
[2017-02-14] MEDS: ENOXAPARIN 40 MG/0.4 ML SYRINGE SQ SCH (08:59)
[2017-02-14] MEDS: CEPHALEXIN 500 MG CAP PO SCH ×2 (08:59→12:36)
[2017-02-14] MEDS: ASPIRIN 81 MG CHEW PO SCH (09:00)
[2017-02-14] MEDS: VENLAFAXINE HCL ER 75 MG CAP PO SCH (09:00)
[2017-02-14] MEDS: METOPROLOL TARTRATE 25 MG TAB PO SCH (09:00)
[2017-02-14] MEDS: CHOLECALCIFEROL 1,000 UNIT TAB PO SCH (09:01)
[2017-02-14] MEDS: PANTOPRAZOLE 40 MG TABLET PO SCH (09:01)
[2017-02-14] MEDS: LOSARTAN 50 MG TAB PO SCH (09:01)
[2017-02-14] MEDS: DIVALPROEX 500 MG TABLET.DR PO SCH (09:01)
--- NOTE | 2017-02-14 13:09 | P.DS ---
Providers Date of admission: 02/03/17 16:37 Expected date of discharge: 02/14/17 Attending physician: Angelo Perez Consults: 02/03/17 16:53 Consult Physician Routine Consulting Provider: James Hanson Consult Reason/Comments: Recurrent seizures Do you want consulting provider notified?: Yes Consult Physician Routine Consulting Provider: Rene Loya Consult Reason/Comments: Dysrhythmia Do you want consulting provider notified?: Yes 02/03/17 20:02 Consult Physician Routine Consulting Provider: Josep Salgado Consult Reason/Comments: ICU management Do you want consulting provider notified?: Yes 02/13/17 14:48 Consult Physician Routine Consulting Provider: Russ Salazar Consult Reason/Comments: hx schizophrenia, highly emotional, possible medication adjustment Do you want consulting provider notified?: Yes Primary care physician: Angelo Perez [facility] Course: This patient is a 61-year-old right-handed white male who has underlying history of seizure disorder and hypertension. Apparently he was having a seizure at home which lasted about 2 minutes in duration. He had a second seizure in the emergency room. Patient has a history of underlying seizure disorder for which she has been taking Depakote. His seizure in the emergency room lasted about 1 minute in duration with some postictal confusion. Patient was sent for computed tomography scan of the brain which revealed no acute abnormality. His drug screen did come back positive for marijuana as well as cocaine. He was given Ativan in the emergency room and then transferred to [facility] care. An A Team Code was initiated as a patient went into a episode of snorous breathing and possible recurrent seizure. He was started on IV Dilantin and transferred to the intensive care unit. Patient was given another dose of Ativan in the ICU and his Dilantin was initiated. We switched the patient to IV Depacon and IV Dilantin for further seizure management. We recommended placing him on IV Depacon thousand milligrams IVP he back every 12 hours. He is currently on Dilantin with a maintenance dose of 100 mg IV piggyback every 8 hours. The patient remains lethargic and obtunded in the intensive care unit. He has had no further active seizure noted by the ICU nursing staff. Patient was noted in the ER to have left lateral eye gaze. This suggests seizure focus emanating from the right hemisphere. Patient continues to remain postictal. It is unclear whether the patient has been having frequent breakthrough seizures Patient was admitted to the intensive care unit monitored closely. Neurology Dr. Michelle Hanson did participate in the plan of care followed patient throughout the hospitalization. Additionally patient was seen by pulmonology service. Patient had no further witnessed seizures. On admission the patient Dilantin level was low at 8.8 patient did receive 200 mg of IV Dilantin. Additionally patient had an echocardiogram done on the that showed left ventricular systolic function impaired EF of 20%. There was no evidence of pulmonary hypertension. No evidence of a pericardial effusion. Chest x-ray did show a large right lower lobe consolidation suspect aspiration pneumonia. Patient was treated in intensive care unit for acute hypoxic respiratory failure needs to be placed on BiPAP support. Additionally patient was given IV Ativan and Haldol for episodes in the ICU of confusion and agitation and restlessness. This was able to be titrated and stopped when appropriate. Patient was able to be stabilized and transferred out of the ICU to stepdown unit Physical occupational therapy participate in the plan of care. Patient was felt to be appropriate to be transferred to subacute rehab. Patient continued to be oriented to self and place had no recall of event. Patient does have evidence of diffuse encephalopathy. Patient did have an EEG this admission failed to reveal any evidence of epilepticus or vocal seizure disorder. Patient's mental status slowly improved. Patient's seizure medication were adjusted. Patient's Depakote level was monitored closely neurology indicated on the day of discharge patient could be stopped taking the Dilantin and continue with 1500 mg of Depakote twice a day and repeat a Depakote level in one week call Dr. Michelle Hanson further Depakote dosing the Depakote level on the day of discharge was 30.1 manager of it met with the patient's daughter on February 09 the daughter indicated that the patient's apartment was infested with bed bugs. She throughout the furniture and the clothing. Patient was monitored throughout the hospitalization showed no evidence of bed bug infestation. Patient had no skin lesions no evidence of itching scratching. Impression discharge diagnose 1 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 2 present on admission acute encephalopathy likely due to alcoholism with impending delirium tremens. 3 present on admission acute hypoxic respiratory failure multifactorial 4 acute right lower lobe pneumonia suspected aspiration 5 acute systolic CHF with ejection fraction of 20%, likely due to alcoholic and cocaine induced, 6 hypothyroidism 7 history of marijuana and cocaine abuse with a positive urine drug screen this admission for cocaine and marijuana 8 hypertension 9 bipolar disorder mood disorder 10 chronic anxiety disorder nonspecified 11 GERD #12 positive urine drug screen for cocaine and marijuana present on admission #13 present on admission febrile leukocytosis suspect sepsis due to acute right lower lobe aspiration pneumonia Acute on chronic systolic congestive heart failure injection fraction 20% Acute dysphagia failed swallow eval resolved Electrolyte morality hypernatremia and hypokalemia corrected resolved Severe cardiomyopathy systolic congestive heart failure EF 20% suspect due to alcoholism and cocaine Acute hypoxic respiratory failure requiring BiPAP support suspect due to acute right lobe aspiration pneumonia Chronic encephalopathy The above dictated assessment and findings were discussed with Dr. Perez Impression and the plan of care have been dictated as directed. Sahara Hanson nurse practitioner acting as a scribe for Dr. Perez Patient Condition at Discharge: Stable Plan - Discharge Summary New Discharge Prescriptions: Cephalexin [Keflex] 500 mg PO QID #28 cap QUEtiapine [SEROquel] 50 mg PO HS #30 tab Discharge Medication List Cholecalciferol [Vitamin D3] 5,000 unit PO DAILY 02/03/17 [History] Losartan [Cozaar] 50 mg PO DAILY 02/03/17 [History] Ranitidine HCl 150 mg PO BID 02/03/17 [History] Venlafaxine HCl ER [Effexor XR] 150 mg PO QAM 02/03/17 [History] Venlafaxine HCl [Effexor XR] 75 mg PO QAM 02/03/17 [History] Aspirin 81 mg PO DAILY chew 02/14/17 [Rx] Cephalexin [Keflex] 500 mg PO QID #28 cap 02/14/17 [Rx] Divalproex [Depakote] 1,500 mg PO BID tablet. 02/14/17 [Rx] Levothyroxine Sodium [Synthroid] 75 mcg PO DAILY@0630 tab 02/14/17 [Rx] Metoprolol Tartrate [Lopressor] 25 mg PO TID tab 02/14/17 [Rx] QUEtiapine [SEROquel] 50 mg PO HS #30 tab 02/14/17 [Rx] Follow up Appointment(s)/Referral(s): Angelo Perze MD [Primary Care Provider] - 1-2 days James Hanson MD [STAFF PHYSICIAN] - 02/21/17 Patient Instructions/Handouts: Epilepsy (DC), Encephalopathy (DC) Activity/Diet/Wound Care/Special Instructions: Maya Appiah on discharge Care Plan Goals (MU): Draw a valproic level in one week called the results to Dr. michelle hanson office for further Depakote dosing Discharge Disposition: TRANSFER TO SNF/ECF
[2017-02-14] MEDS ORDERED: FUROSEMIDE 10 MG/ML 2 ML VIAL IV ONE (13:14)
[2017-02-14 14:01] LABS: ALT 65 U/L (21-72); AST 51 U/L (17-59); Alkaline Phosphatase 73 U/L (38-126); Anion Gap 9 mmol/L; Blood Urea Nitrogen 13 mg/dL (9-20); Calcium 8.3 mg/dL (8.4-10.2); Carbon Dioxide 28 mmol/L (22-30); Chloride 103 mmol/L (98-107); Glucose 120 mg/dL (74-99); Non-African American GFR(MDRD) >60 (>60 ml/min/1.73 sqM); Potassium 4.5 mmol/L (3.5-5.1); Sodium 140 mmol/L (137-145); Total Bilirubin 0.4 mg/dL (0.2-1.3); Total Protein 6.1 g/dL (6.3-8.2)
[2017-02-14 14:08] VITALS: BP 129/88; PULSE 95; RESP 18; TEMP 99.1
--- NOTE | 2017-02-14 16:04 | P.CN ---
Psychiatric Consult - . Consult date: 02/14/17 Consult:: The patient was discharged from medicine service before we could complete consult. 02/14/17 16:03
--- NOTE | 2017-02-14 17:49 | PN ---
CHIEF COMPLAINT: Encephalopathy following seizure. HISTORY OF PRESENT ILLNESS: This gentleman is fairly stable. We are working on a discharge plan. It is possible he will be going to [facility] today and this will be arranged by the nurse practitioner. PHYSICAL EXAMINATION: CHEST: Clear. The cardiac exam is normal. The abdomen is soft, nontender. IMPRESSION: Encephalopathy secondary to seizure and anoxia. PLAN: Possibly moved today.
== END 2017-02-14 15:15 | DRG 896 ==
LOC: EC 14:42 → 6SEL 16:37 → 6ICU 19:18 → 4MS4W 02-09 21:30
PROVIDERS: ADMIT Family Medicine; ATTEND Family Medicine
DX: F10.288 Alcohol dependence with other alcohol-induced disorder (principal); A41.9 Sepsis, unspecified organism; J96.01 Acute respiratory failure with hypoxia; J69.0 Pneumonitis due to inhalation of food and vomit; I50.23 Acute on chronic systolic (congestive) heart failure; G93.49 Other encephalopathy; G93.1 Anoxic brain damage, not elsewhere classified; G40.211 Localization-related (focal) (partial) symptomatic epilepsy and epileptic syndromes with complex partial seizures, intractable, with status epilepticus; E87.0 Hyperosmolality and hypernatremia; I42.6 Alcoholic cardiomyopathy; E87.2 Acidosis; G40.89 Other seizures; F10.231 Alcohol dependence with withdrawal delirium; F14.10 Cocaine abuse, uncomplicated; I11.0 Hypertensive heart disease with heart failure; E03.9 Hypothyroidism, unspecified; E87.6 Hypokalemia; F17.200 Nicotine dependence, unspecified, uncomplicated; F20.9 Schizophrenia, unspecified; F41.9 Anxiety disorder, unspecified; F60.3 Borderline personality disorder; I49.3 Ventricular premature depolarization; J44.9 Chronic obstructive pulmonary disease, unspecified; K21.9 Gastro-esophageal reflux disease without esophagitis; F12.10 Cannabis abuse, uncomplicated; R13.10 Dysphagia, unspecified; R40.1 Stupor; F32.9 Major depressive disorder, single episode, unspecified; R32 Unspecified urinary incontinence; I08.1 Rheumatic disorders of both mitral and tricuspid valves; I70.0 Atherosclerosis of aorta; Z79.82 Long term (current) use of aspirin; Z79.899 Other long term (current) drug therapy
CPT/HCPCS: 36415; 36600; 70450; 71010; 74230; 80048; 80053; 80164; 80185; 80306; 80320; 82150; 82805; 83520; 83690; 83735; 84100; 84132; 84439; 84443; 85025; 85610; 88184; 88185; 93005; 93306; 93308; 94660; 95816

== ENCOUNTER → 2017-03-19 | Outpatient (CLI) | payer OTHER | END | disposition home or self-care (01) | LOC: LABWHC1 11:01 | PROVIDERS: ATTEND Nurse Practitioner | DX: Z51.81 Encounter for therapeutic drug level monitoring (principal); Z79.899 Other long term (current) drug therapy | CPT/HCPCS: 36415; 80164 ==

== ENCOUNTER → 2017-04-05 | Outpatient (CLI) | payer SELFPAY ==
[2017-04-05 11:36] LABS: Basophils # (A) 0.1 k/uL (0-0.2); Basophils % (A) 1 %; CH 32.9; CHCM 33.7; Eosinophils # (A) 0.1 k/uL (0-0.7); Eosinophils % (A) 1 %; HDW 2.25; HGB 14.4 gm/dL (13.0-17.5); Luc # (Auto) 0.15; Luc % (Auto) 2; Lymphocytes # (A) 1.6 k/uL (1.0-4.8); Lymphocytes % (A) 22 %; MCHC 32.7 g/dL (31.0-37.0); Mean Platelet Volume 6.6; Monocytes # (A) 0.5 k/uL (0-1.0); Monocytes % (A) 7 %; Neutrophils # (A) 4.7 k/uL (1.3-7.7); Neutrophils % (A) 66 %; RBC 4.49 m/uL (4.30-5.90); RDW 13.6 % (11.5-15.5); WBC (Perox) 7.24
[2017-04-05 12:00] LABS: ALT 22 U/L (21-72); AST 16 U/L (17-59); Alkaline Phosphatase 74 U/L (38-126); Anion Gap 9 mmol/L; Blood Urea Nitrogen 15 mg/dL (9-20); Calcium 9.1 mg/dL (8.4-10.2); Carbon Dioxide 30 mmol/L (22-30); Chloride 101 mmol/L (98-107); Cholesterol 107 mg/dL (<200); Glucose 93 mg/dL (74-99); HDL Cholesterol 48 mg/dL (40-60); Non-African American GFR(MDRD) >60 (>60 ml/min/1.73 sqM); Potassium 4.9 mmol/L (3.5-5.1); Sodium 140 mmol/L (137-145); Total Bilirubin 0.3 mg/dL (0.2-1.3); Total Protein 6.2 g/dL (6.3-8.2); Triglycerides 73 mg/dL (<150)
[2017-04-05 12:30] LABS: Prostate Specific Antigen 1.63 ng/mL (0.00-4.00)
[2017-04-05 13:14] LABS: Hepatitis B Surface Ag Index 0.08
[2017-04-06 06:48] LABS: HIV-1/HIV-2 Ab Screen NONREAC (NON REAC)
[2017-04-09 08:18] LABS: Hepatits C Virus RNA, Quant <12 IU/mL (<12); LOG HCV IU/mL <1.08 (<1.08)
== END | disposition home or self-care (01) ==
LOC: LABWHC1 10:57
PROVIDERS: ATTEND Family Medicine
DX: G40.209 Localization-related (focal) (partial) symptomatic epilepsy and epileptic syndromes with complex partial seizures, not intractable, without status epilepticus (principal); K52.9 Noninfective gastroenteritis and colitis, unspecified; I10 Essential (primary) hypertension; F20.9 Schizophrenia, unspecified; E03.9 Hypothyroidism, unspecified; Z87.898 Personal history of other specified conditions
CPT/HCPCS: 36415; 80053; 80061; 80164; 82272; 84153; 84443; 85025; 86780; 87045; 87046; 87324; 87328; 87329; 87340; 87389; 87522

== ENCOUNTER → 2017-05-28 | Outpatient (CLI) | payer OTHER | END | disposition home or self-care (01) | LOC: LABWHC1 11:42 | PROVIDERS: ATTEND Psychiatry & Neurology Neurology | DX: G40.209 Localization-related (focal) (partial) symptomatic epilepsy and epileptic syndromes with complex partial seizures, not intractable, without status epilepticus (principal) | CPT/HCPCS: 36415; 80177 ==

== ENCOUNTER 2017-06-06 09:47 | Emergency (ER) | payer OTHER ==
[2017-06-06 10:04] LABS: Glucose,Whole Blood 90 mg/dL (75-99)
[2017-06-06] MEDS ORDERED: SODIUM CHLORIDE 0.9% 500 ML IV STA (10:04)
[2017-06-06] MEDS ORDERED: LORazepam 2 MG/ML SYRINGE IV STA (10:05)
--- NOTE | 2017-06-06 10:09 | ED ---
General Adult HPI - General Chief complaint: Weakness Stated complaint: weakness Time Seen by Provider: 06/06/17 09:50 Source: patient, RN notes reviewed Mode of arrival: wheelchair Limitations: no limitations - History of Present Illness Initial comments: This is a 61-year-old male who presents emergency Department with severe anxiety. Daughter states that her head and in today to get lab work done and he became very anxious and then started saying he was weak and started shaking. Daughter states his schizophrenia and bipolar severe anxiety. Daughter states lately he has been having angry outbursts at home and she would like him evaluated for those outburst today. Patient denies any headache patient denies any numbness weakness. Patient denies any chest pain difficult breathing palpitations or shortness of breath. Patient denies any recent fever chills or cough. Patient denies abdominal pain patient denies nausea vomiting diarrhea. Patient states he did not pass out today and he did not fall over. - Related Data Home Medications Medication Instructions Recorded Confirmed Cholecalciferol [Vitamin D3] 5,000 unit PO DAILY 02/03/17 02/03/17 Losartan [Cozaar] 50 mg PO DAILY 02/03/17 06/06/17 Ranitidine HCl 150 mg PO BID 02/03/17 06/06/17 Chlorthalidone 25 mg PO DAILY 06/06/17 06/06/17 LORazepam [Ativan] 0.5 mg PO TID PRN 06/06/17 06/06/17 Venlafaxine HCl [Effexor XR] 225 mg PO DAILY 06/06/17 06/06/17 levETIRAcetam [Keppra] 1,000 mg PO BID 06/06/17 06/06/17 Previous Rx's Medication Instructions Recorded Levothyroxine Sodium [Synthroid] 75 mcg PO DAILY@0630 tab 02/14/17 Metoprolol Tartrate [Lopressor] 25 mg PO TID tab 02/14/17 QUEtiapine [SEROquel] 50 mg PO HS #30 tab 02/14/17 Allergies Allergy/AdvReac Type Severity Reaction Status Date / Time No Known Allergies Allergy Verified 06/06/17 09:51 Review of Systems ROS Statement: Those systems with pertinent positive or pertinent negative responses have been documented in the HPI. ROS Other: All systems not noted in ROS Statement are negative. Past Medical History Past Medical History: Chest Pain / Angina, COPD, GERD/Reflux, Seizure Disorder History of Any Multi-Drug Resistant Organisms: None Reported Past Surgical History: Hernia Repair Additional Past Surgical History / Comment(s): right leg surgery Past Psychological History: Anxiety, Bipolar, Depression Smoking Status: Current some day smoker Past Alcohol Use History: Occasional Past Drug Use History: Marijuana General Exam - General Exam Comments Initial Comments: GENERAL: Patient is well-developed and well-nourished. Patient is nontoxic and well- hydrated and is in no acute distress. ENT: Neck is soft and supple. No significant lymphadenopathy is noted. Oropharynx is clear. Moist mucous membranes. Neck has full range of motion without eliciting any pain. EYES: The sclera were anicteric and conjunctiva were pink and moist. Extraocular movements were intact and pupils were equal round and reactive to light. Eyelids were unremarkable. PULMONARY: Unlabored respirations. Good breath sounds bilaterally. No audible rales rhonchi or wheezing was noted. CARDIOVASCULAR: There is a regular rate and rhythm without any murmurs gallops or rubs. ABDOMEN: Soft and nontender with normal bowel sounds. No palpable organomegaly was noted. There is no palpable pulsatile mass. SKIN: Skin is clear with no lesions or rashes and otherwise unremarkable. NEUROLOGIC: Patient is alert and oriented x3. Cranial nerves II through XII are grossly intact. Motor and sensory are also intact. Normal speech, volume and content. Symmetrical smile. MUSCULOSKELETAL: Normal extremities with adequate strength and full range of motion. No lower extremity swelling or edema. No calf tenderness. LYMPHATICS: No significant lymphadenopathy is noted PSYCHIATRIC: Normal psychiatric evaluation. Normal interpersonal interactions appears functionally intact in deals appropriately with others. Patient is extremely anxious Limitations: no limitations Course Vital Signs 06/06/17 06/06/17 09:49 11:09 Temperature 98.2 F Pulse Rate 90 77 Respiratory 20 17 Rate Blood Pressure 161/95 139/89 O2 Sat by Pulse 99 96 Oximetry Medical Decision Making - Medical Decision Making EKG shows normal sinus rhythm at 84 bpm RI interval is 148 QRSs 1 week QT interval 400 QTC is 472. Patient's EKG shows no ST segment elevation or depression or T-wave abnormality she noted - Lab Data Result diagrams: 06/06/17 10:16 06/06/17 10:16 Lab Results 06/06/17 06/06/17 06/06/17 Range/Units 10:02 10:11 10:16 WBC 10.0 (3.8-10.6) k/uL RBC 4.98 (4.30-5.90) m/uL Hgb 16.2 (13.0-17.5) gm/dL Hct 47.0 (39.0-53.0) % MCV 94.4 (80.0-100.0) fL MCH 32.5 (25.0-35.0) pg MCHC 34.4 (31.0-37.0) g/dL RDW 14.7 (11.5-15.5) % Plt Count 269 (150-450) k/uL Neutrophils % 57 % Lymphocytes % 32 % Monocytes % 5 % Eosinophils % 3 % Basophils % 1 % Neutrophils # 5.7 (1.3-7.7) k/uL Lymphocytes # 3.2 (1.0-4.8) k/uL Monocytes # 0.5 (0-1.0) k/uL Eosinophils # 0.3 (0-0.7) k/uL Basophils # 0.1 (0-0.2) k/uL Sodium (137-145) mmol/L Potassium (3.5-5.1) mmol/L Chloride (98-107) mmol/L Carbon Dioxide (22-30) mmol/L Anion Gap mmol/L BUN (9-20) mg/dL Creatinine (0.66-1.25) mg/dL Est GFR (MDRD) Af Amer (>60 ml/min/1.73 sqM) Est GFR (MDRD) Non-Af (>60 ml/min/1.73 sqM) Glucose (74-99) mg/dL POC Glucose (mg/dL) 90 (75-99) mg/dL POC Glu Cheese Cook ID Tania Wright Calcium (8.4-10.2) mg/dL Magnesium (1.6-2.3) mg/dL Total Bilirubin (0.2-1.3) mg/dL AST (17-59) U/L ALT (21-72) U/L Alkaline Phosphatase (38-126) U/L Total Creatine Kinase (55-170) U/L CK-MB (CK-2) (0.0-2.4) ng/mL CK-MB (CK-2) Rel Index Troponin I (0.000-0.034) ng/mL Total Protein (6.3-8.2) g/dL Albumin (3.5-5.0) g/dL Urine Color Light Yellow Urine Appearance Clear (Clear) Urine pH 5.0 (5.0-8.0) Ur Specific Garnett 1.005 (1.001-1.035) Urine Protein Negative (Negative) Urine Glucose (UA) Negative (Negative) Urine Ketones Negative (Negative) Urine Blood Negative (Negative) Urine Nitrite Negative (Negative) Urine Bilirubin Negative (Negative) Urine Urobilinogen <2.0 (<2.0) mg/dL Ur Leukocyte Esterase Negative (Negative) Urine Opiates Screen Not Detected (NotDetected) Ur Oxycodone Screen Not Detected (NotDetected) Urine Methadone Screen Not Detected (NotDetected) Ur Propoxyphene Screen Not Detected (NotDetected) Ur Barbiturates Screen Not Detected (NotDetected) U Tricyclic Antidepress Not Detected (NotDetected) Ur Phencyclidine Scrn Not Detected (NotDetected) Ur Amphetamines Screen Not Detected (NotDetected) U Methamphetamines Scrn Not Detected (NotDetected) U Benzodiazepines Scrn Not Detected (NotDetected) Urine Cocaine Screen Not Detected (NotDetected) U Marijuana (THC) Screen Not Detected (NotDetected) 06/06/17 06/06/17 Range/Units 10:16 10:16 WBC (3.8-10.6) k/uL RBC (4.30-5.90) m/uL Hgb (13.0-17.5) gm/dL Hct (39.0-53.0) % MCV (80.0-100.0) fL MCH (25.0-35.0) pg MCHC (31.0-37.0) g/dL RDW (11.5-15.5) % Plt Count (150-450) k/uL Neutrophils % % Lymphocytes % % Monocytes % % Eosinophils % % Basophils % % Neutrophils # (1.3-7.7) k/uL Lymphocytes # (1.0-4.8) k/uL Monocytes # (0-1.0) k/uL Eosinophils # (0-0.7) k/uL Basophils # (0-0.2) k/uL Sodium 141 (137-145) mmol/L Potassium 4.2 (3.5-5.1) mmol/L Chloride 107 (98-107) mmol/L Carbon Dioxide 22 (22-30) mmol/L Anion Gap 12 mmol/L BUN 21 H (9-20) mg/dL Creatinine 0.92 (0.66-1.25) mg/dL Est GFR (MDRD) Af Amer >60 (>60 ml/min/1.73 sqM) Est GFR (MDRD) Non-Af >60 (>60 ml/min/1.73 sqM) Glucose 85 (74-99) mg/dL POC Glucose (mg/dL) (75-99) mg/dL POC Glu Cheese Cook ID Calcium 9.4 (8.4-10.2) mg/dL Magnesium 1.8 (1.6-2.3) mg/dL Total Bilirubin 0.5 (0.2-1.3) mg/dL AST 20 (17-59) U/L ALT 32 (21-72) U/L Alkaline Phosphatase 76 (38-126) U/L Total Creatine Kinase 71 (55-170) U/L CK-MB (CK-2) 0.8 (0.0-2.4) ng/mL CK-MB (CK-2) Rel Index 1.1 Troponin I <0.012 (0.000-0.034) ng/mL Total Protein 7.3 (6.3-8.2) g/dL Albumin 4.4 (3.5-5.0) g/dL Urine Color Urine Appearance (Clear) Urine pH (5.0-8.0) Ur Specific Garnett (1.001-1.035) Urine Protein (Negative) Urine Glucose (UA) (Negative) Urine Ketones (Negative) Urine Blood (Negative) Urine Nitrite (Negative) Urine Bilirubin (Negative) Urine Urobilinogen (<2.0) mg/dL Ur Leukocyte Esterase (Negative) Urine Opiates Screen (NotDetected) Ur Oxycodone Screen (NotDetected) Urine Methadone Screen (NotDetected) Ur Propoxyphene Screen (NotDetected) Ur Barbiturates Screen (NotDetected) U Tricyclic Antidepress (NotDetected) Ur Phencyclidine Scrn (NotDetected) Ur Amphetamines Screen (NotDetected) U Methamphetamines Scrn (NotDetected) U Benzodiazepines Scrn (NotDetected) Urine Cocaine Screen (NotDetected) U Marijuana (THC) Screen (NotDetected) Disposition Clinical Impression: Anxiety Disposition: HOME SELF-CARE Condition: Good Instructions: Anxiety (ED) Referrals: Lucia Kc MD [Primary Care Provider] - 1-2 days Time of Disposition: 12:22
[2017-06-06 10:34] LABS: Appearance,Urine Clear (Clear); Bilirubin,Urine Negative (Negative); Glucose,Urine (UA) Negative (Negative); Ketones,Urine Negative (Negative); Leukocyte Esterase,Urine Negative (Negative); Nitrite,Urine Negative (Negative); Protein,Urine Negative (Negative); Specific Gravity,Urine 1.005 (1.001-1.035); UA Billing (MACRO vs. MICRO) CHEM; Urobilinogen,Urine <2.0 mg/dL (<2.0)
[2017-06-06 10:45] LABS: ALT 32 U/L (21-72); AST 20 U/L (17-59); Alkaline Phosphatase 76 U/L (38-126); Anion Gap 12 mmol/L; Blood Urea Nitrogen 21 mg/dL (9-20); Calcium 9.4 mg/dL (8.4-10.2); Carbon Dioxide 22 mmol/L (22-30); Chloride 107 mmol/L (98-107); Glucose 85 mg/dL (74-99); Magnesium 1.8 mg/dL (1.6-2.3); Non-African American GFR(MDRD) >60 (>60 ml/min/1.73 sqM); Potassium 4.2 mmol/L (3.5-5.1); Sodium 141 mmol/L (137-145); Total Bilirubin 0.5 mg/dL (0.2-1.3); Total Protein 7.3 g/dL (6.3-8.2)
[2017-06-06 10:48] LABS: Basophils # (A) 0.1 k/uL (0-0.2); Basophils % (A) 1 %; CH 33.4; CHCM 35.6; Eosinophils # (A) 0.3 k/uL (0-0.7); Eosinophils % (A) 3 %; HDW 2.63; HGB 16.2 gm/dL (13.0-17.5); Luc # (Auto) 0.23; Luc % (Auto) 2; Lymphocytes # (A) 3.2 k/uL (1.0-4.8); Lymphocytes % (A) 32 %; MCH 32.5 pg (25.0-35.0); MCHC 34.4 g/dL (31.0-37.0); MCV 94.4 fL (80.0-100.0); Mean Platelet Volume 7.4; Monocytes # (A) 0.5 k/uL (0-1.0); Monocytes % (A) 5 %; Neutrophils # (A) 5.7 k/uL (1.3-7.7); Neutrophils % (A) 57 %; RBC 4.98 m/uL (4.30-5.90); RDW 14.7 % (11.5-15.5); WBC (Perox) 10.16
[2017-06-06 11:02] LABS: Creatine Kinase 71 U/L (55-170)
--- NOTE | 2017-06-06 11:04 | XR ---
EXAMINATION TYPE: XR chest 2V DATE OF EXAM: 06/06/2017 COMPARISON: 02/09/2017 HISTORY: 61-year-old male with weakness and shortness of breath TECHNIQUE: AP and lateral views FINDINGS: Heart is upper limits of normal in size. Aorta and coronary vasculature within normal limits. There i s focal right suprahilar opacity. Otherwise, strandy areas of atelectasis are present. No pleural eff usion. IMPRESSION: Focal right suprahilar opacity could represent an early infiltrate. Follow up after any potential marixa atment to ensure clearance.
[2017-06-06 11:14] LABS: Creatine Kinase MB 0.8 ng/mL (0.0-2.4); Troponin I <0.012 ng/mL (0.000-0.034)
[2017-06-06 12:57] VITALS: BP 155/95; PULSE 90; RESP 16; TEMP 98.1
== END 2017-06-06 13:01 | disposition home or self-care (01) ==
LOC: EEVIPCON 09:47 → EC 09:47
DX: F41.9 Anxiety disorder, unspecified (principal); G40.909 Epilepsy, unspecified, not intractable, without status epilepticus; F31.9 Bipolar disorder, unspecified; K21.9 Gastro-esophageal reflux disease without esophagitis; F17.200 Nicotine dependence, unspecified, uncomplicated; Z79.899 Other long term (current) drug therapy
CPT/HCPCS: 99285; 96374; 96361; 82075; 36415; 93005; 80053; 80177; 82550; 82553; 83735; 84484; 85025; 81003; 80306; 71020; J2060

== ENCOUNTER 2017-06-28 22:19 | Emergency (ER) | payer OTHER ==
[2017-06-28 22:26] VITALS: RESP 16; TEMP 97.8
[2017-06-28] MEDS ORDERED: LORazepam 2 MG/ML SYRINGE IV STA (22:38)
[2017-06-28] MEDS ORDERED: SODIUM CHLORIDE 0.9% 1,000 ML IV STA (22:38)
--- NOTE | 2017-06-28 22:43 | ED ---
General Adult HPI - General Chief complaint: Seizure Stated complaint: poss seizure Time Seen by Provider: 06/28/17 22:31 Source: patient, family, EMS, RN notes reviewed Mode of arrival: EMS Limitations: no limitations - History of Present Illness Initial comments: Patient is a pleasant 61-year-old male presenting to the emergency department following possible seizure. Family members did hear a thump this patient was found with decreased responsiveness in the chair he was sitting in. Patient denies any trauma. Patient feels fine at this time without complaints. Patient does feel like he possibly had a seizure. No generalized seizure activity was witnessed however patient was found to have some mild odd movements of the arms and was confused for approximately 20 minutes following the episode. Patient is on Keppra and has been taking this regularly. Patient was admitted to ICU back in February for seizures. No seizure since February. No chest pain. No recent illness. No fevers. - Related Data Home Medications Medication Instructions Recorded Confirmed Cholecalciferol [Vitamin D3] 5,000 unit PO DAILY 02/03/17 06/28/17 Losartan [Cozaar] 50 mg PO DAILY 02/03/17 06/28/17 LORazepam [Ativan] 0.5 mg PO TID PRN 06/06/17 06/28/17 Venlafaxine HCl [Effexor XR] 225 mg PO DAILY 06/06/17 06/28/17 levETIRAcetam [Keppra] 1,000 mg PO BID 06/06/17 06/28/17 Aspirin EC [Ecotrin Low Dose] 81 mg PO DAILY 06/28/17 06/28/17 Furosemide [Lasix] 40 mg PO DAILY 06/28/17 06/28/17 Spironolactone [Aldactone] 12.5 mg PO DAILY 06/28/17 06/28/17 Previous Rx's Medication Instructions Recorded Levothyroxine Sodium [Synthroid] 75 mcg PO DAILY@0630 tab 02/14/17 Metoprolol Tartrate [Lopressor] 25 mg PO TID tab 02/14/17 QUEtiapine [SEROquel] 50 mg PO HS #30 tab 02/14/17 Allergies Allergy/AdvReac Type Severity Reaction Status Date / Time No Known Allergies Allergy Verified 06/28/17 22:44 Review of Systems ROS Statement: Those systems with pertinent positive or pertinent negative responses have been documented in the HPI. ROS Other: All systems not noted in ROS Statement are negative. Constitutional: Denies: fever, chills Eyes: Denies: eye pain ENT: Denies: ear pain Respiratory: Denies: cough, dyspnea Cardiovascular: Denies: chest pain Endocrine: Denies: fatigue Gastrointestinal: Denies: abdominal pain Genitourinary: Denies: dysuria Musculoskeletal: Denies: back pain Skin: Denies: rash Neurological: Denies: headache, weakness Past Medical History Past Medical History: Chest Pain / Angina, COPD, GERD/Reflux, Seizure Disorder History of Any Multi-Drug Resistant Organisms: None Reported Past Surgical History: Hernia Repair Additional Past Surgical History / Comment(s): right leg surgery Past Psychological History: Anxiety, Bipolar, Depression Smoking Status: Current some day smoker Past Alcohol Use History: Occasional Past Drug Use History: Marijuana General Exam Limitations: no limitations General appearance: alert, in no apparent distress Head exam: Present: normocephalic, other (Minimal abrasions to the scalp) Eye exam: Present: normal appearance, PERRL, EOMI. Absent: nystagmus ENT exam: Present: normal oropharynx Neck exam: Present: normal inspection, full ROM. Absent: tenderness, meningismus Respiratory exam: Present: normal lung sounds bilaterally Cardiovascular Exam: Present: regular rate, normal rhythm GI/Abdominal exam: Present: soft. Absent: tenderness Extremities exam: Present: normal inspection Neurological exam: Present: alert, CN II-XII intact. Absent: motor sensory deficit Expanded Patient oriented to: Present: person, place. Absent: time (Patient is oriented to month but not year which family states is normal.) Speech: Present: fluid speech Cranial nerves: EOM's Intact: Normal, Facial Sensation: Normal Sensory exam: Upper Extremity Light Touch: Normal, Lower Extremity Light Touch: Normal Motor strength exam: RUE: 5, LUE: 5, RLE: 5, LLE: 5 Psychiatric exam: Present: normal affect, normal mood Skin exam: Present: normal color Course Vital Signs 06/28/17 22:20 Temperature 97.8 F Pulse Rate 55 L Respiratory 16 Rate Blood Pressure 101/60 O2 Sat by Pulse 100 Oximetry - Reevaluation(s) Reevaluation #1: 06/28/17 23:08 Case was discussed with Dr. Kirkland who does recommend increasing Keppra to 1500 mg twice daily and repeat level on Sunday and then follow-up following this. EKG Findings - EKG Comments: EKG Findings:: Sinus bradycardia 55. NV 170. QRS 108. QT 450. QTC 4:30. Normal axis. Normal QRS. No acute ST elevation. Medical Decision Making - Medical Decision Making Patient reevaluated and resting comfortably in bed. Patient and family updated on results and plan - Lab Data Result diagrams: 06/28/17 22:55 06/28/17 22:55 Lab Results 06/28/17 06/28/17 Range/Units 22:55 22:55 WBC 11.7 H (3.8-10.6) k/uL RBC 4.41 (4.30-5.90) m/uL Hgb 14.5 (13.0-17.5) gm/dL Hct 40.6 (39.0-53.0) % MCV 92.1 (80.0-100.0) fL MCH 32.8 (25.0-35.0) pg MCHC 35.6 (31.0-37.0) g/dL RDW 13.6 (11.5-15.5) % Plt Count 250 (150-450) k/uL Neutrophils % 69 % Lymphocytes % 23 % Monocytes % 5 % Eosinophils % 2 % Basophils % 1 % Neutrophils # 8.0 H (1.3-7.7) k/uL Lymphocytes # 2.7 (1.0-4.8) k/uL Monocytes # 0.6 (0-1.0) k/uL Eosinophils # 0.2 (0-0.7) k/uL Basophils # 0.1 (0-0.2) k/uL Sodium 135 L (137-145) mmol/L Potassium 3.6 (3.5-5.1) mmol/L Chloride 96 L (98-107) mmol/L Carbon Dioxide 27 (22-30) mmol/L Anion Gap 12 mmol/L BUN 25 H (9-20) mg/dL Creatinine 1.10 (0.66-1.25) mg/dL Est GFR (MDRD) Af Amer >60 (>60 ml/min/1.73 sqM) Est GFR (MDRD) Non-Af >60 (>60 ml/min/1.73 sqM) Glucose 102 H (74-99) mg/dL Calcium 8.9 (8.4-10.2) mg/dL Magnesium 1.8 (1.6-2.3) mg/dL Total Bilirubin 0.3 (0.2-1.3) mg/dL AST 18 (17-59) U/L ALT 32 (21-72) U/L Alkaline Phosphatase 94 (38-126) U/L Total Protein 6.2 L (6.3-8.2) g/dL Albumin 3.8 (3.5-5.0) g/dL Serum Alcohol <10 mg/dL - Radiology Data Radiology results: image reviewed (Computed tomography scan the brain reveals no acute process) Disposition Clinical Impression: Seizure Disposition: HOME SELF-CARE Condition: Stable Instructions: Recurrent Seizures in Adults (ED) Additional Instructions: Please follow-up with primary care physician in the next day or 2 for recheck. Please increased Keppra to 1500 mg twice daily. Repeat Keppra level on Sunday and follow-up with Dr. Kirkland following this. Return for seizures, fevers, worsening or change in symptoms, confusion or other concerns. Referrals: Lucia Kc MD [Primary Care Provider] - 1-2 days Time of Disposition: 00:13
[2017-06-28] MEDS ORDERED: levETIRAcetam 500 MG TAB PO STA (23:07)
[2017-06-28 23:08] LABS: Basophils # (A) 0.1 k/uL (0-0.2); Basophils % (A) 1 %; CH 33.8; CHCM 36.9; Eosinophils # (A) 0.2 k/uL (0-0.7); Eosinophils % (A) 2 %; HCT 40.6 % (39.0-53.0); HDW 2.55; HGB 14.5 gm/dL (13.0-17.5); Luc # (Auto) 0.15; Luc % (Auto) 1; Lymphocytes # (A) 2.7 k/uL (1.0-4.8); Lymphocytes % (A) 23 %; MCH 32.8 pg (25.0-35.0); MCHC 35.6 g/dL (31.0-37.0); MCV 92.1 fL (80.0-100.0); Mean Platelet Volume 7.1; Monocytes # (A) 0.6 k/uL (0-1.0); Monocytes % (A) 5 %; Neutrophils % (A) 69 %; RBC 4.41 m/uL (4.30-5.90); RDW 13.6 % (11.5-15.5); WBC 11.7 k/uL (3.8-10.6); WBC (Perox) 11.35
[2017-06-28 23:21] LABS: ALT 32 U/L (21-72); AST 18 U/L (17-59); Alcohol <10 mg/dL; Alkaline Phosphatase 94 U/L (38-126); Anion Gap 12 mmol/L; Blood Urea Nitrogen 25 mg/dL (9-20); Calcium 8.9 mg/dL (8.4-10.2); Carbon Dioxide 27 mmol/L (22-30); Chloride 96 mmol/L (98-107); Glucose 102 mg/dL (74-99); Magnesium 1.8 mg/dL (1.6-2.3); Non-African American GFR(MDRD) >60 (>60 ml/min/1.73 sqM); Potassium 3.6 mmol/L (3.5-5.1); Sodium 135 mmol/L (137-145); Total Bilirubin 0.3 mg/dL (0.2-1.3); Total Protein 6.2 g/dL (6.3-8.2)
--- NOTE | 2017-06-28 23:44 | CT ---
EXAM: CT Head Without Intravenous Contrast CLINICAL HISTORY: Reason: Seizure, abrasions TECHNIQUE: Axial computed tomography images of the head/brain without intravenous contrast. CTDI is 60.30 mGy and DLP is 1072.30 mGy-cm. This CT exam was performed using one or more of the following dose reduction techniques: automated exposure control, adjustment of the mA and/or kV according to patient size, and/or use of iterative reconstruction technique. COMPARISON: 02/03/2017. FINDINGS: Brain: Unremarkable. No hemorrhage. No significant white matter disease. No edema. Ventricles: Unremarkable. No ventriculomegaly. Bones/joints: Unremarkable. No acute fracture. Soft tissues: Unremarkable. Sinuses: Mild paranasal sinus mucosal thickening. Mastoid air cells: Unremarkable as visualized. No mastoid effusion. IMPRESSION: No acute intracranial abnormality or skull fracture.
[2017-06-29 00:21] VITALS: BP 101/56; PULSE 58
== END 2017-06-29 00:20 | disposition home or self-care (01) ==
LOC: EC 22:19
DX: G40.909 Epilepsy, unspecified, not intractable, without status epilepticus (principal); S00.01XA Abrasion of scalp, initial encounter; F31.9 Bipolar disorder, unspecified; F17.200 Nicotine dependence, unspecified, uncomplicated; Z79.82 Long term (current) use of aspirin; Z79.899 Other long term (current) drug therapy; X58.XXXA Exposure to other specified factors, initial encounter
CPT/HCPCS: 99285; 96374; 96361; 36415; 93005; 80053; 80177; 83735; 85025; 80320; 70450; J2060

== ENCOUNTER → 2017-07-02 | Outpatient (CLI) | payer OTHER ==
[2017-07-02 13:13] LABS: Anion Gap 9 mmol/L; Blood Urea Nitrogen 20 mg/dL (9-20); Calcium 9.2 mg/dL (8.4-10.2); Carbon Dioxide 28 mmol/L (22-30); Chloride 104 mmol/L (98-107); Glucose 89 mg/dL (74-99); Non-African American GFR(MDRD) >60 (>60 ml/min/1.73 sqM); Potassium 4.4 mmol/L (3.5-5.1); Sodium 141 mmol/L (137-145)
== END | disposition home or self-care (01) ==
LOC: LABWHC1 10:20
PROVIDERS: ATTEND Psychiatry & Neurology Neurology
DX: G40.209 Localization-related (focal) (partial) symptomatic epilepsy and epileptic syndromes with complex partial seizures, not intractable, without status epilepticus (principal); I50.22 Chronic systolic (congestive) heart failure
CPT/HCPCS: 36415; 80048; 80177

== ENCOUNTER → 2017-07-13 | Outpatient (CLI) | payer OTHER | END | disposition home or self-care (01) | LOC: LABWHC1 08:57 | PROVIDERS: ATTEND Psychiatry & Neurology Neurology | DX: G40.209 Localization-related (focal) (partial) symptomatic epilepsy and epileptic syndromes with complex partial seizures, not intractable, without status epilepticus (principal) | CPT/HCPCS: 36415; 80177 ==

== ENCOUNTER 2017-08-08 12:47 | Emergency (ER) | payer OTHER ==
[2017-08-08 12:56] VITALS: RESP 18
[2017-08-08] MEDS ORDERED: SODIUM CHLORIDE 0.9% 500 ML IV ONE (13:02)
[2017-08-08 13:36] LABS: Basophils % (A) 1 %; CH 32.8; CHCM 35.7; Eosinophils # (A) 0.2 k/uL (0-0.7); Eosinophils % (A) 2 %; HCT 41.2 % (39.0-53.0); HDW 2.51; HGB 14.3 gm/dL (13.0-17.5); Luc # (Auto) 0.19; Luc % (Auto) 2; Lymphocytes % (A) 25 %; MCH 32.1 pg (25.0-35.0); MCHC 34.8 g/dL (31.0-37.0); MCV 92.2 fL (80.0-100.0); Mean Platelet Volume 6.5; Monocytes # (A) 0.5 k/uL (0-1.0); Monocytes % (A) 6 %; Neutrophils # (A) 5.1 k/uL (1.3-7.7); Neutrophils % (A) 64 %; RBC 4.47 m/uL (4.30-5.90); RDW 13.2 % (11.5-15.5); WBC (Perox) 8.03
[2017-08-08] MEDS ORDERED: LORazepam 1 MG TAB PO STA (13:42)
[2017-08-08 13:44] LABS: ALT 25 U/L (21-72); AST 19 U/L (17-59); Alkaline Phosphatase 71 U/L (38-126); Anion Gap 13 mmol/L; Blood Urea Nitrogen 10 mg/dL (9-20); Carbon Dioxide 22 mmol/L (22-30); Chloride 94 mmol/L (98-107); Glucose 73 mg/dL (74-99); Non-African American GFR(MDRD) >60 (>60 ml/min/1.73 sqM); Potassium 4.2 mmol/L (3.5-5.1); Sodium 129 mmol/L (137-145); Total Bilirubin 0.6 mg/dL (0.2-1.3); Total Protein 6.8 g/dL (6.3-8.2)
--- NOTE | 2017-08-08 13:59 | ED ---
Recheck HPI - General Chief Complaint: Recheck/Abnormal Lab/Rx Stated Complaint: Low Sodium Time Seen by Provider: 08/08/17 13:01 Source: patient, RN notes reviewed Mode of arrival: ambulatory Limitations: no limitations - History of Present Illness Initial Comments: 61-year-old male presents emergency Department with chief complaint of low sodium. Patient states his doctor has been watching his sodium and call him today to have her recheck. Patient states his sodium was 120 07/06/2028. Patient states that he has no this time. He does take Trileptal and Lasix which is most likely the cause. Patient - Related Data Home Medications Medication Instructions Recorded Confirmed Cholecalciferol [Vitamin D3] 5,000 unit PO DAILY 02/03/17 08/08/17 Losartan [Cozaar] 50 mg PO DAILY 02/03/17 08/08/17 LORazepam [Ativan] 0.5 mg PO BID PRN 06/06/17 08/08/17 Venlafaxine HCl [Effexor XR] 225 mg PO DAILY 06/06/17 08/08/17 levETIRAcetam [Keppra] 1,000 mg PO BID 06/06/17 08/08/17 Aspirin EC [Ecotrin Low Dose] 81 mg PO HS 06/28/17 08/08/17 Furosemide [Lasix] 40 mg PO DAILY 06/28/17 08/08/17 Spironolactone [Aldactone] 12.5 mg PO DAILY 06/28/17 08/08/17 Metoprolol Tartrate [Lopressor] 25 mg PO BID 08/08/17 08/08/17 levETIRAcetam [Keppra] 500 mg PO BID 08/08/17 08/08/17 Previous Rx's Medication Instructions Recorded Levothyroxine Sodium [Synthroid] 75 mcg PO DAILY@0630 tab 02/14/17 QUEtiapine [SEROquel] 50 mg PO HS #30 tab 02/14/17 Allergies Allergy/AdvReac Type Severity Reaction Status Date / Time No Known Allergies Allergy Verified 08/08/17 13:17 Review of Systems ROS Statement: Those systems with pertinent positive or pertinent negative responses have been documented in the HPI. ROS Other: All systems not noted in ROS Statement are negative. Past Medical History Past Medical History: Chest Pain / Angina, COPD, GERD/Reflux, Seizure Disorder History of Any Multi-Drug Resistant Organisms: None Reported Past Surgical History: Hernia Repair Additional Past Surgical History / Comment(s): right leg surgery Past Psychological History: Anxiety, Bipolar, Depression Smoking Status: Current every day smoker Past Alcohol Use History: Occasional Past Drug Use History: Marijuana General Exam Limitations: no limitations General appearance: alert, in no apparent distress Head exam: Present: atraumatic, normocephalic, normal inspection Respiratory exam: Present: normal lung sounds bilaterally. Absent: respiratory distress, wheezes, rales, rhonchi, stridor Cardiovascular Exam: Present: regular rate, normal rhythm, normal heart sounds. Absent: systolic murmur, diastolic murmur, rubs, gallop, clicks Neurological exam: Present: alert, oriented X3, CN II-XII intact, reflexes normal. Absent: motor sensory deficit Course Vital Signs 08/08/17 12:53 Temperature 98.3 F Pulse Rate 63 Respiratory 18 Rate Blood Pressure 111/67 O2 Sat by Pulse 98 Oximetry Medical Decision Making - Medical Decision Making [id number] male present emergency for hyponatremia. Patient's sodium is 129 this time. Patient advised to recheck is sodium in 2 days with PCP return if any symptoms. - Lab Data Result diagrams: 08/08/17 13:20 08/08/17 13:20 Lab Results 08/08/17 08/08/17 Range/Units 13:20 13:20 WBC 8.0 (3.8-10.6) k/uL RBC 4.47 (4.30-5.90) m/uL Hgb 14.3 (13.0-17.5) gm/dL Hct 41.2 (39.0-53.0) % MCV 92.2 (80.0-100.0) fL MCH 32.1 (25.0-35.0) pg MCHC 34.8 (31.0-37.0) g/dL RDW 13.2 (11.5-15.5) % Plt Count 256 (150-450) k/uL Neutrophils % 64 % Lymphocytes % 25 % Monocytes % 6 % Eosinophils % 2 % Basophils % 1 % Neutrophils # 5.1 (1.3-7.7) k/uL Lymphocytes # 2.0 (1.0-4.8) k/uL Monocytes # 0.5 (0-1.0) k/uL Eosinophils # 0.2 (0-0.7) k/uL Basophils # 0.0 (0-0.2) k/uL Sodium 129 L (137-145) mmol/L Potassium 4.2 (3.5-5.1) mmol/L Chloride 94 L (98-107) mmol/L Carbon Dioxide 22 (22-30) mmol/L Anion Gap 13 mmol/L BUN 10 (9-20) mg/dL Creatinine 1.03 (0.66-1.25) mg/dL Est GFR (MDRD) Af Amer >60 (>60 ml/min/1.73 sqM) Est GFR (MDRD) Non-Af >60 (>60 ml/min/1.73 sqM) Glucose 73 L (74-99) mg/dL Calcium 9.0 (8.4-10.2) mg/dL Total Bilirubin 0.6 (0.2-1.3) mg/dL AST 19 (17-59) U/L ALT 25 (21-72) U/L Alkaline Phosphatase 71 (38-126) U/L Total Protein 6.8 (6.3-8.2) g/dL Albumin 4.2 (3.5-5.0) g/dL Disposition Clinical Impression: Hyponatremia Disposition: HOME SELF-CARE Condition: Stable Instructions: Hyponatremia (ED) Additional Instructions: Please return to the Emergency Department if symptoms worsen or any other concerns. Referrals: Lucia Kc MD [Primary Care Provider] - 1-2 days Time of Disposition: 13:59
[2017-08-08 14:22] VITALS: BP 116/59; PULSE 53; TEMP 98.1
== END 2017-08-08 14:22 | disposition home or self-care (01) ==
LOC: EC 12:47
DX: E87.1 Hypo-osmolality and hyponatremia (principal); G40.909 Epilepsy, unspecified, not intractable, without status epilepticus; F41.9 Anxiety disorder, unspecified; F32.9 Major depressive disorder, single episode, unspecified; F17.200 Nicotine dependence, unspecified, uncomplicated; Z79.82 Long term (current) use of aspirin; Z79.899 Other long term (current) drug therapy
CPT/HCPCS: 36415; 80053; 85025; 96365; 99283

== ENCOUNTER 2017-08-11 19:41 | Inpatient (IN) | payer OTHER ==
[2017-08-11] MEDS ORDERED: SODIUM CHLORIDE 0.9% 500 ML IV STA (19:45)
[2017-08-11] MEDS ORDERED: SODIUM CHLORIDE 0.9% 1,000 ML IV STA (19:45)
[2017-08-11] MEDS ORDERED: levETIRAcetam IV 1,000 MG in SALINE 1 100ML.BAG IVPB STA (19:45)
--- NOTE | 2017-08-11 20:18 | ED ---
General Adult HPI - General Chief complaint: Seizure Stated complaint: Seizure Time Seen by Provider: 08/11/17 19:45 Source: patient, EMS, RN notes reviewed, old records reviewed Mode of arrival: EMS - History of Present Illness Initial comments: This is a 61-year-old male to the ER for evaluation. Patient presents here for evaluation of multiple coronaries. Patient does have history of seizures states has been taking his seizure medication but had a seizure earlier today. At this time patient is also pending of chest pain and weakness. Patient that he just feels fatigued. Patient's seizure was witnessed. At this point patient Malee postictal and significantly poor Strine. History obtained from EMS and patient's chart - Related Data Home Medications Medication Instructions Recorded Confirmed Cholecalciferol [Vitamin D3] 5,000 unit PO DAILY 02/03/17 08/11/17 Losartan [Cozaar] 50 mg PO DAILY 02/03/17 08/11/17 LORazepam [Ativan] 0.5 mg PO BID PRN 06/06/17 08/11/17 Venlafaxine HCl [Effexor XR] 225 mg PO DAILY 06/06/17 08/11/17 levETIRAcetam [Keppra] 1,000 mg PO BID 06/06/17 08/11/17 Aspirin EC [Ecotrin Low Dose] 81 mg PO HS 06/28/17 08/11/17 Furosemide [Lasix] 40 mg PO DAILY 06/28/17 08/11/17 Spironolactone [Aldactone] 12.5 mg PO DAILY 06/28/17 08/11/17 Metoprolol Tartrate [Lopressor] 25 mg PO BID 08/08/17 08/11/17 levETIRAcetam [Keppra] 500 mg PO BID 08/08/17 08/11/17 Previous Rx's Medication Instructions Recorded Levothyroxine Sodium [Synthroid] 75 mcg PO DAILY@0630 tab 02/14/17 QUEtiapine [SEROquel] 50 mg PO HS #30 tab 02/14/17 Allergies Allergy/AdvReac Type Severity Reaction Status Date / Time No Known Allergies Allergy Verified 08/11/17 20:06 Review of Systems ROS Statement: Those systems with pertinent positive or pertinent negative responses have been documented in the HPI. ROS Other: All systems not noted in ROS Statement are negative. Past Medical History Past Medical History: Chest Pain / Angina, COPD, GERD/Reflux, Seizure Disorder History of Any Multi-Drug Resistant Organisms: None Reported Past Surgical History: Hernia Repair Additional Past Surgical History / Comment(s): right leg surgery Past Psychological History: Anxiety, Bipolar, Depression Smoking Status: Current every day smoker Past Alcohol Use History: Occasional Past Drug Use History: Marijuana - Past Family History Father Family Medical History: Cancer, Coronary Artery Disease (CAD) Mother Family Medical History: Coronary Artery Disease (CAD), CVA/TIA General Exam General appearance: alert, in no apparent distress Head exam: Present: atraumatic, normocephalic, normal inspection Eye exam: Present: normal appearance, PERRL, EOMI. Absent: scleral icterus, conjunctival injection, periorbital swelling ENT exam: Present: normal exam, mucous membranes moist Neck exam: Present: normal inspection. Absent: tenderness, meningismus, lymphadenopathy Respiratory exam: Present: normal lung sounds bilaterally. Absent: respiratory distress, wheezes, rales, rhonchi, stridor Cardiovascular Exam: Present: regular rate, normal rhythm, normal heart sounds. Absent: systolic murmur, diastolic murmur, rubs, gallop, clicks GI/Abdominal exam: Present: soft, normal bowel sounds. Absent: distended, tenderness, guarding, rebound, rigid Extremities exam: Present: normal inspection, full ROM, normal capillary refill. Absent: tenderness, pedal edema, joint swelling, calf tenderness Back exam: Present: normal inspection Neurological exam: Present: alert, oriented X3, CN II-XII intact Psychiatric exam: Present: normal affect, normal mood Skin exam: Present: warm, dry, intact, normal color. Absent: rash Course Vital Signs 08/11/17 08/11/17 08/11/17 19:42 21:33 21:48 Temperature 98.5 F Pulse Rate 73 71 74 Respiratory 16 16 16 Rate Blood Pressure 89/45 104/56 110/59 O2 Sat by Pulse 93 L 97 96 Oximetry 08/11/17 23:02 Temperature 98.0 F Pulse Rate 80 Respiratory 16 Rate Blood Pressure 112/60 O2 Sat by Pulse 97 Oximetry EKG Findings - EKG Comments: EKG Findings:: EKG shows normal sinus rhythm rate of 75, NE 162, QRS 118, QTC 435 Medical Decision Making - Medical Decision Making 61 male to ER for advice of chest pain and recurrent seizures. Patient's chest pain is atypical and something he has had before. Patient's seizures have been difficult to control. He is taking all seizure medication as appropriate. Patient did have 2 seizures at home or here in the emergency room without return to baseline qualify process epilepticus. Patient be admitted for neurological evaluation, patient also chest pain evaluation - Lab Data Result diagrams: 08/12/17 07:28 08/11/17 19:31 Lab Results 08/11/17 08/11/17 08/11/17 Range/Units 19:31 19:31 19:31 WBC 15.3 H (3.8-10.6) k/uL RBC 4.68 (4.30-5.90) m/uL Hgb 15.3 (13.0-17.5) gm/dL Hct 44.6 (39.0-53.0) % MCV 95.5 (80.0-100.0) fL MCH 32.7 (25.0-35.0) pg MCHC 34.3 (31.0-37.0) g/dL RDW 13.2 (11.5-15.5) % Plt Count 227 (150-450) k/uL Neutrophils % (Manual) 73 % Band Neutrophils % 13 % Lymphocytes % (Manual) 7 % Monocytes % (Manual) 5 % Eosinophils % (Manual) 2 % Neutrophils # (Manual) 13.10 H (1.3-7.7) k/uL Lymphocytes # (Manual) 1.07 (1.0-4.8) k/uL Monocytes # (Manual) 0.77 (0-1.0) k/uL Eosinophils # (Manual) 0.31 (0-0.7) k/uL Nucleated RBCs 0 (0-0) /100 WBC Manual Slide Review Performed RBC Morphology Normal PT (9.0-12.0) sec INR (<1.2) APTT (22.0-30.0) sec Sodium (137-145) mmol/L Potassium (3.5-5.1) mmol/L Chloride (98-107) mmol/L Carbon Dioxide (22-30) mmol/L Anion Gap mmol/L BUN (9-20) mg/dL Creatinine (0.66-1.25) mg/dL Est GFR (MDRD) Af Amer (>60 ml/min/1.73 sqM) Est GFR (MDRD) Non-Af (>60 ml/min/1.73 sqM) Glucose (74-99) mg/dL Lactic Ac Sepsis Rflx Plasma Lactic Acid Pramod 2.7 H* (0.7-2.0) mmol/L Calcium (8.4-10.2) mg/dL Phosphorus (2.5-4.5) mg/dL Magnesium (1.6-2.3) mg/dL Total Bilirubin (0.2-1.3) mg/dL AST (17-59) U/L ALT (21-72) U/L Alkaline Phosphatase (38-126) U/L Ammonia <9 (<30) umol/L Total Creatine Kinase 104 (55-170) U/L CK-MB (CK-2) 0.6 (0.0-2.4) ng/mL CK-MB (CK-2) Rel Index 0.6 Troponin I <0.012 (0.000-0.034) ng/mL Total Protein (6.3-8.2) g/dL Albumin (3.5-5.0) g/dL TSH (0.465-4.680) mIU/L Urine Color Urine Appearance (Clear) Urine pH (5.0-8.0) Ur Specific [place] (1.001-1.035) Urine Protein (Negative) Urine Glucose (UA) (Negative) Urine Ketones (Negative) Urine Blood (Negative) Urine Nitrite (Negative) Urine Bilirubin (Negative) Urine Urobilinogen (<2.0) mg/dL Ur Leukocyte Esterase (Negative) Urine WBC (0-5) /hpf Ur Squamous Epith Cells (0-4) /hpf Amorphous Sediment (None) /hpf Urine Bacteria (None) /hpf Hyaline Casts (0-2) /lpf Urine Mucus (None) /hpf Salicylates mg/dL Urine Opiates Screen (NotDetected) Ur Oxycodone Screen (NotDetected) Urine Methadone Screen (NotDetected) Ur Propoxyphene Screen (NotDetected) Acetaminophen ug/mL Ur Barbiturates Screen (NotDetected) U Tricyclic Antidepress (NotDetected) Ur Phencyclidine Scrn (NotDetected) Ur Amphetamines Screen (NotDetected) U Methamphetamines Scrn (NotDetected) U Benzodiazepines Scrn (NotDetected) Urine Cocaine Screen (NotDetected) U Marijuana (THC) Screen (NotDetected) Serum Alcohol mg/dL 08/11/17 08/11/17 08/11/17 Range/Units 19:31 19:31 21:25 WBC (3.8-10.6) k/uL RBC (4.30-5.90) m/uL Hgb (13.0-17.5) gm/dL Hct (39.0-53.0) % MCV (80.0-100.0) fL MCH (25.0-35.0) pg MCHC (31.0-37.0) g/dL RDW (11.5-15.5) % Plt Count (150-450) k/uL Neutrophils % (Manual) % Band Neutrophils % % Lymphocytes % (Manual) % Monocytes % (Manual) % Eosinophils % (Manual) % Neutrophils # (Manual) (1.3-7.7) k/uL Lymphocytes # (Manual) (1.0-4.8) k/uL Monocytes # (Manual) (0-1.0) k/uL Eosinophils # (Manual) (0-0.7) k/uL Nucleated RBCs (0-0) /100 WBC Manual Slide Review RBC Morphology PT 10.3 (9.0-12.0) sec INR 1.0 (<1.2) APTT 18.0 L (22.0-30.0) sec Sodium 135 L (137-145) mmol/L Potassium 5.1 (3.5-5.1) mmol/L Chloride 96 L (98-107) mmol/L Carbon Dioxide 23 (22-30) mmol/L Anion Gap 16 mmol/L BUN 19 (9-20) mg/dL Creatinine 1.68 H (0.66-1.25) mg/dL Est GFR (MDRD) Af Amer 51 (>60 ml/min/1.73 sqM) Est GFR (MDRD) Non-Af 42 (>60 ml/min/1.73 sqM) Glucose 75 (74-99) mg/dL Lactic Ac Sepsis Rflx Plasma Lactic Acid Pramod (0.7-2.0) mmol/L Calcium 9.4 (8.4-10.2) mg/dL Phosphorus 4.1 (2.5-4.5) mg/dL Magnesium 1.8 (1.6-2.3) mg/dL Total Bilirubin 0.7 (0.2-1.3) mg/dL AST 35 (17-59) U/L ALT 18 L (21-72) U/L Alkaline Phosphatase 69 (38-126) U/L Ammonia (<30) umol/L Total Creatine Kinase (55-170) U/L CK-MB (CK-2) (0.0-2.4) ng/mL CK-MB (CK-2) Rel Index Troponin I (0.000-0.034) ng/mL Total Protein 7.8 (6.3-8.2) g/dL Albumin 4.8 (3.5-5.0) g/dL TSH 4.010 (0.465-4.680) mIU/L Urine Color Light Yellow Urine Appearance Cloudy (Clear) Urine pH 5.5 (5.0-8.0) Ur Specific [place] 1.005 (1.001-1.035) Urine Protein Trace H (Negative) Urine Glucose (UA) Negative (Negative) Urine Ketones Negative (Negative) Urine Blood Negative (Negative) Urine Nitrite Negative (Negative) Urine Bilirubin Negative (Negative) Urine Urobilinogen <2.0 (<2.0) mg/dL Ur Leukocyte Esterase Negative (Negative) Urine WBC 1 (0-5) /hpf Ur Squamous Epith Cells <1 (0-4) /hpf Amorphous Sediment Rare H (None) /hpf Urine Bacteria Occasional H (None) /hpf Hyaline Casts 15 H (0-2) /lpf Urine Mucus Occasional H (None) /hpf Salicylates <1.0 mg/dL Urine Opiates Screen Not Detected (NotDetected) Ur Oxycodone Screen Not Detected (NotDetected) Urine Methadone Screen Not Detected (NotDetected) Ur Propoxyphene Screen Not Detected (NotDetected) Acetaminophen <10.0 ug/mL Ur Barbiturates Screen Not Detected (NotDetected) U Tricyclic Antidepress Not Detected (NotDetected) Ur Phencyclidine Scrn Not Detected (NotDetected) Ur Amphetamines Screen Not Detected (NotDetected) U Methamphetamines Scrn Not Detected (NotDetected) U Benzodiazepines Scrn Not Detected (NotDetected) Urine Cocaine Screen Not Detected (NotDetected) U Marijuana (THC) Screen Detected H (NotDetected) Serum Alcohol <10 mg/dL 08/11/17 Range/Units 21:34 WBC (3.8-10.6) k/uL RBC (4.30-5.90) m/uL Hgb (13.0-17.5) gm/dL Hct (39.0-53.0) % MCV (80.0-100.0) fL MCH (25.0-35.0) pg MCHC (31.0-37.0) g/dL RDW (11.5-15.5) % Plt Count (150-450) k/uL Neutrophils % (Manual) % Band Neutrophils % % Lymphocytes % (Manual) % Monocytes % (Manual) % Eosinophils % (Manual) % Neutrophils # (Manual) (1.3-7.7) k/uL Lymphocytes # (Manual) (1.0-4.8) k/uL Monocytes # (Manual) (0-1.0) k/uL Eosinophils # (Manual) (0-0.7) k/uL Nucleated RBCs (0-0) /100 WBC Manual Slide Review RBC Morphology PT (9.0-12.0) sec INR (<1.2) APTT (22.0-30.0) sec Sodium (137-145) mmol/L Potassium (3.5-5.1) mmol/L Chloride (98-107) mmol/L Carbon Dioxide (22-30) mmol/L Anion Gap mmol/L BUN (9-20) mg/dL Creatinine (0.66-1.25) mg/dL Est GFR (MDRD) Af Amer (>60 ml/min/1.73 sqM) Est GFR (MDRD) Non-Af (>60 ml/min/1.73 sqM) Glucose (74-99) mg/dL Lactic Ac Sepsis Rflx Y Plasma Lactic Acid Pramod (0.7-2.0) mmol/L Calcium (8.4-10.2) mg/dL Phosphorus (2.5-4.5) mg/dL Magnesium (1.6-2.3) mg/dL Total Bilirubin (0.2-1.3) mg/dL AST (17-59) U/L ALT (21-72) U/L Alkaline Phosphatase (38-126) U/L Ammonia (<30) umol/L Total Creatine Kinase (55-170) U/L CK-MB (CK-2) (0.0-2.4) ng/mL CK-MB (CK-2) Rel Index Troponin I (0.000-0.034) ng/mL Total Protein (6.3-8.2) g/dL Albumin (3.5-5.0) g/dL TSH (0.465-4.680) mIU/L Urine Color Urine Appearance (Clear) Urine pH (5.0-8.0) Ur Specific [place] (1.001-1.035) Urine Protein (Negative) Urine Glucose (UA) (Negative) Urine Ketones (Negative) Urine Blood (Negative) Urine Nitrite (Negative) Urine Bilirubin (Negative) Urine Urobilinogen (<2.0) mg/dL Ur Leukocyte Esterase (Negative) Urine WBC (0-5) /hpf Ur Squamous Epith Cells (0-4) /hpf Amorphous Sediment (None) /hpf Urine Bacteria (None) /hpf Hyaline Casts (0-2) /lpf Urine Mucus (None) /hpf Salicylates mg/dL Urine Opiates Screen (NotDetected) Ur Oxycodone Screen (NotDetected) Urine Methadone Screen (NotDetected) Ur Propoxyphene Screen (NotDetected) Acetaminophen ug/mL Ur Barbiturates Screen (NotDetected) U Tricyclic Antidepress (NotDetected) Ur Phencyclidine Scrn (NotDetected) Ur Amphetamines Screen (NotDetected) U Methamphetamines Scrn (NotDetected) U Benzodiazepines Scrn (NotDetected) Urine Cocaine Screen (NotDetected) U Marijuana (THC) Screen (NotDetected) Serum Alcohol mg/dL - Radiology Data Radiology results: report reviewed (Chest x-ray and CT brain is negative for acute disease), image reviewed Disposition Clinical Impression: Intractable seizure disorder, Status epilepticus, Chest pain Disposition: ADMITTED IP TO THIS [facility] Condition: Fair
--- NOTE | 2017-08-11 21:15 | XR ---
EXAMINATION TYPE: XR chest 2V DATE OF EXAM: 08/11/2017 COMPARISON: July 31, 2017 HISTORY: Weakness TECHNIQUE: Frontal and lateral views of the chest are obtained. FINDINGS: There is no focal air space opacity, pleural effusion, or pneumothorax seen. The cardiac silhouette size is within normal limits. The osseous structures are intact. IMPRESSION: No acute cardiopulmonary process.
[2017-08-11 21:16] LABS: Ammonia <9 umol/L (<30)
[2017-08-11 21:17] LABS: ALT 18 U/L (21-72); AST 35 U/L (17-59); Acetaminophen <10.0 ug/mL; Alcohol <10 mg/dL; Alkaline Phosphatase 69 U/L (38-126); Anion Gap 16 mmol/L; Blood Urea Nitrogen 19 mg/dL (9-20); Calcium 9.4 mg/dL (8.4-10.2); Carbon Dioxide 23 mmol/L (22-30); Chloride 96 mmol/L (98-107); Glucose 75 mg/dL (74-99); Magnesium 1.8 mg/dL (1.6-2.3); Non-African American GFR(MDRD) 42 (>60 ml/min/1.73 sqM); Phosphorus 4.1 mg/dL (2.5-4.5); Salicylate <1.0 mg/dL; Sodium 135 mmol/L (137-145); Total Bilirubin 0.7 mg/dL (0.2-1.3); Total Protein 7.8 g/dL (6.3-8.2)
[2017-08-11 21:19] LABS: Prothrombin Time 10.3 sec (9.0-12.0)
[2017-08-11 21:23] LABS: CH 32.4; CHCM 34.1; HCT 44.6 % (39.0-53.0); HDW 2.48; HGB 15.3 gm/dL (13.0-17.5); Immature Gran Flag Moderate; MCH 32.7 pg (25.0-35.0); MCHC 34.3 g/dL (31.0-37.0); MCV 95.5 fL (80.0-100.0); Mean Platelet Volume 8.5; RBC 4.68 m/uL (4.30-5.90); RDW 13.2 % (11.5-15.5); WBC 15.3 k/uL (3.8-10.6); WBC (Perox) 16.67
[2017-08-11 21:29] LABS: Creatine Kinase 104 U/L (55-170)
--- NOTE | 2017-08-11 21:29 | CT ---
EXAMINATION TYPE: CT brain wo con DATE OF EXAM: 08/11/2017 COMPARISON: NONE HISTORY: seizure activity today. History of seizure CT DLP: 1150.5 mGycm Automated exposure control for dose reduction was used. FINDINGS: There is no acute hemorrhage or major vessel territorial infarct. There is no mass, mass effect, or m idline shift. Calvarium and paranasal sinuses are unremarkable. There is no abnormal intra or extra-a xial fluid collections. IMPRESSION: NO ACUTE INTRACRANIAL ABNORMALITY IS IDENTIFIED.
[2017-08-11 21:34] LABS: Potassium 5.1 mmol/L (3.5-5.1)
[2017-08-11 21:40] LABS: Amorphous Sediment,Urine Rare /hpf; Appearance,Urine Cloudy (Clear); Bacteria,Urine Occasional /hpf; Bilirubin,Urine Negative (Negative); Glucose,Urine (UA) Negative (Negative); Ketones,Urine Negative (Negative); Leukocyte Esterase,Urine Negative (Negative); Mucus,Urine Occasional /hpf; Nitrite,Urine Negative (Negative); PH, Urine 5.5 (5.0-8.0); Particle Count 4648; Protein,Urine Trace (Negative); Specific Gravity,Urine 1.005 (1.001-1.035); Squamous Epithelial Cell,Urine <1 /hpf (0-4); UA Billing (MACRO vs. MICRO) MICRO; Urobilinogen,Urine <2.0 mg/dL (<2.0); WBC,Urine 1 /hpf (0-5)
[2017-08-11 21:41] LABS: Add Differential Manual Differential
[2017-08-11 21:43] LABS: Band Neutrophils % 13 %; Creatine Kinase MB 0.6 ng/mL (0.0-2.4); Manual Review Performed; Nucleated Red Blood Cells 0 /100 WBC (0-0); RBC Morphology Normal; Total Cells Counted 100; Troponin I <0.012 ng/mL (0.000-0.034)
[2017-08-11] MEDS ORDERED: NITROGLYCERIN SL TABS 0.4 MG TAB SUBLINGUAL PRN (21:51)
[2017-08-11] MEDS ORDERED: HEPARIN SODIUM,PORCINE 5,000 UNIT/ML 1 ML VIAL IV PRN (21:51)
[2017-08-11] MEDS ORDERED: MORPHINE SULFATE 4 MG/ML SYRINGE IV PRN (21:51)
[2017-08-11] MEDS ORDERED: HEPARIN SODIUM,PORCINE 5,000 UNIT/ML 1 ML VIAL IV ONE (21:51)
[2017-08-11] MEDS ORDERED: HEPARIN SODIUM,PORCINE/D5W PMX 25,000 UNIT in DEXTROSE/WATER 1 500ML.BAG IV SCH (22:00)
[2017-08-11 23:39] VITALS: BMI 20.9
[2017-08-11] MEDS ORDERED: levETIRAcetam 500 MG TAB PO SCH (23:45)
[2017-08-11] MEDS ORDERED: LORazepam 0.5 MG TAB PO PRN (23:49)
[2017-08-11] MEDS ORDERED: LORazepam 2 MG/ML INJ IV PRN (23:58)
[2017-08-12] MEDS ORDERED: levETIRAcetam 500 MG TAB PO STA (00:21)
[2017-08-12] MEDS: METOPROLOL TARTRATE 25 MG TAB PO SCH ×3 (00:35→20:07)
[2017-08-12] MEDS: QUEtiapine 50 MG TAB PO SCH ×2 (00:35→20:07)
[2017-08-12 01:44] LABS: Creatine Kinase 93 U/L (55-170)
[2017-08-12 01:58] LABS: Creatine Kinase MB 0.8 ng/mL (0.0-2.4); Troponin I <0.012 ng/mL (0.000-0.034)
[2017-08-12] MEDS: LEVOTHYROXINE 75 MCG TAB PO SCH (06:30)
[2017-08-12] MEDS: FUROSEMIDE 40 MG TAB PO SCH (08:14)
[2017-08-12] MEDS: SPIRONOLACTONE 25 MG TAB PO SCH (08:14)
[2017-08-12] MEDS: CHOLECALCIFEROL 1,000 UNIT TAB PO SCH (08:14)
[2017-08-12] MEDS: NICOTINE 14MG/24HR PATCH TRANSDERM SCH (08:14)
[2017-08-12] MEDS: LOSARTAN 50 MG TAB PO SCH (08:15)
[2017-08-12] MEDS: VENLAFAXINE HCL ER 75 MG CAP PO SCH (08:15)
[2017-08-12 08:25] LABS: Mean Platelet Volume 7.7
[2017-08-12 08:34] LABS: Creatine Kinase 87 U/L (55-170)
[2017-08-12 08:38] LABS: Cholesterol 119 mg/dL (<200); HDL Cholesterol 40 mg/dL (40-60)
[2017-08-12 08:47] LABS: Troponin I <0.012 ng/mL (0.000-0.034)
[2017-08-12] MEDS ORDERED: ASPIRIN 325 MG TAB PO SCH (09:00)
--- NOTE | 2017-08-12 10:23 | CONS ---
CONSULTATION Mr. Valerio is a 61-year-old male who was admitted with seizure activity. The patient has been followed by Dr. Perez in the past. He is a resident of [facility] [place]. Some of the history is obtained from him, although he appears to be quite sleepy and has an element of postictal. The patient is not quite sure why he is in the hospital. According to the ER note, he had a seizure activity and some chest pain, although the patient at the time of my evaluation denies any chest discomfort. He was admitted to the hospital in February of this year with a evidence of status epilepticus. At that time, he had an echocardiogram revealed severely impaired left ventricular systolic function of unclear etiology. The patient had a prior history of chronic alcohol and drug use. According to him, he is only using marijuana at this time and drinking alcohol on and off. He has no dizziness. No palpitation. No syncope. No clear PND. No orthopnea, although as noted, the history from him is quite limited. His coronary risk factors remarkable for history of smoking and hypertension. He is nondiabetic. MEDICATION: At the time of presentation included: 1. Keppra. 2. Effexor. 3. Aldactone 12.5 mg daily. 4. Seroquel. 5. Metoprolol tartrate 25 mg twice a day. 6. Losartan 50 mg daily. 7. Levothyroxine 0.075 mg daily. 8. Lasix 40 mg daily. 9. Aspirin 81 mg daily. 10.Vitamin D. REVIEW OF SYSTEMS: Review of system is limited but respiratory system: He denies any recent wheezing or cough. GI system: He denies any nausea or vomiting. No GI bleeding. system: No dysuria or hematuria. Nervous system: He had a prior history of admission for seizure. PHYSICAL EXAMINATION: He is a 61-year-old male, sleepy and answering some questions. Blood pressure 106/50 with a heart in 70s. HEAD: Normocephalic. Eyes sclerae anicteric. Neck: Good carotid upstroke. No bruit. No jugular venous distention. LUNGS: Clear to auscultation. HEART: Regular rate and rhythm S1, S2. No S3, no S4. No rub. ABDOMEN: Soft, nontender. Positive bowel sounds. No megaly. EXTREMITIES: No edema. Intact distal pulses. LAB DATA: Lab data revealed a BUN creatinine of 19 and 1.6 which is higher than it was in February. His potassium 5.1, hemoglobin 15.3, white blood cell 15.3, as well. Platelets count of 227. Alcohol level of less than 10. He is positive for marijuana. Troponin less than 0.012. EKG revealed a sinus mechanism, normal axis. Incomplete right bundle branch block and nonspecific ST-T wave changes anteriorly. On subsequent EKG those changes have improved. IMPRESSION: 1. Seizure disorder. 2. Questionable chest discomfort, although patient at this time denies any. 3. Prior history of cardiomyopathy of unclear etiology. 4. Chronic tobacco use. 5. Hypertension. RECOMMENDATION: From the cardiac standpoint, I will stop his heparin. I will obtain echocardiogram to see if there is any changes in LV systolic function. I will continue present medical regimen. We will follow his renal function. Depending on his progress, further recommendation will be made. Thank you for this consult. We will follow with you. MMODL / IJN: [id number] /
--- NOTE | 2017-08-12 11:24 | P.HPIM ---
History of Present Illness 61-year-old gentleman with history of for generalized tonic-clonic seizures is admitted after a seizure with the loss of bowel incontinence patient appears to be coming out from the post ictal state patient denied any tongue biting patient doesn't remember any event patient event was witnessed by the and patient Probably wasn't being up and patient had lactic acidosis which improved with IV fluids patient does have history of congestive heart failure on losartan and Lasix and the spironolactone with mildly elevated potassium of 5. 1 repeat basic metabolic well a profile will be obtained for that. Patient apparently complained of minimal chest pain yesterday pressure-like sensation for which cardiology evaluated the patient is chest pain appears to be noncardiac in nature no further intervention is being planned for that and patient is being valid by neurology Keppra levels are being obtained. Review of Systems REVIEW OF SYSTEMS: CONSTITUTIONAL: No fever, no malaise, no fatigue. HEENT: No recent visual problems or hearing problems. Denied any sore throat. CARDIOVASCULAR: No chest pain, orthopnea, PND, no palpitations, no syncope. PULMONARY: No shortness of breath, no cough, no hemoptysis. GASTROINTESTINAL: No diarrhea, no nausea, no vomiting, no abdominal pain. Normoactive bowel sounds. NEUROLOGICAL: No headaches, no weakness, no numbness. HEMATOLOGICAL: Denies any bleeding or petechiae. GENITOURINARY: Denies any burning micturition, frequency, or urgency. MUSCULOSKELETAL/RHEUMATOLOGICAL: Denies any joint pain, swelling, or any muscle pain. ENDOCRINE: Denies any polyuria or polydipsia. The rest of the 14-point review of systems is negative. Past Medical History Past Medical History: Chest Pain / Angina, COPD, GERD/Reflux, Seizure Disorder History of Any Multi-Drug Resistant Organisms: None Reported Past Surgical History: Hernia Repair Additional Past Surgical History / Comment(s): right leg surgery Past Anesthesia/Blood Transfusion Reactions: No Reported Reaction Past Psychological History: Anxiety, Bipolar, Depression, Schizophrenia Smoking Status: Current every day smoker Past Alcohol Use History: Occasional Past Drug Use History: Marijuana - Past Family History Father Family Medical History: Cancer, Coronary Artery Disease (CAD) Mother Family Medical History: Coronary Artery Disease (CAD), CVA/TIA Medications and Allergies Home Medications Medication Instructions Recorded Confirmed Type Cholecalciferol [Vitamin D3] 5,000 unit PO DAILY 02/03/17 08/11/17 History Losartan [Cozaar] 50 mg PO DAILY 02/03/17 08/11/17 History Levothyroxine Sodium [Synthroid] 75 mcg PO DAILY@0630 tab 02/14/17 08/11/17 Rx QUEtiapine [SEROquel] 50 mg PO HS #30 tab 02/14/17 08/11/17 Rx LORazepam [Ativan] 0.5 mg PO BID PRN 06/06/17 08/11/17 History Venlafaxine HCl [Effexor XR] 225 mg PO DAILY 06/06/17 08/11/17 History levETIRAcetam [Keppra] 1,000 mg PO BID 06/06/17 08/11/17 History Aspirin EC [Ecotrin Low Dose] 81 mg PO HS 06/28/17 08/11/17 History Furosemide [Lasix] 40 mg PO DAILY 06/28/17 08/11/17 History Spironolactone [Aldactone] 12.5 mg PO DAILY 06/28/17 08/11/17 History Metoprolol Tartrate [Lopressor] 25 mg PO BID 08/08/17 08/11/17 History levETIRAcetam [Keppra] 500 mg PO BID 08/08/17 08/11/17 History Allergies Allergy/AdvReac Type Severity Reaction Status Date / Time No Known Allergies Allergy Verified 08/11/17 20:06 Physical Exam Vitals: Vital Signs Temp Pulse Pulse Resp BP BP Pulse Ox 08/12/17 11:03 97.0 F L 62 16 87/48 99 08/12/17 08:00 97.0 F L 70 16 106/51 97 08/12/17 04:00 97.0 F L 70 18 101/57 98 08/11/17 23:31 97.8 F 77 18 107/56 95 08/11/17 23:10 97.8 F 77 18 107/56 95 08/11/17 23:02 98.0 F 80 16 112/60 97 08/11/17 21:48 74 16 110/59 96 08/11/17 21:33 71 16 104/56 97 08/11/17 19:42 98.5 F 73 16 89/45 93 L Intake and Output 08/11/17 08/12/17 08/12/17 22:59 06:59 14:59 Intake Total 117.64 0 Output Total 950 850 Balance -832.36 -850 Intake: Intake, IV Titration 117.64 Amount Heparin Sodium,Porcine/ 117.64 D5w Pmx 25,000 unit In Dextrose/Water 1 500ml. bag @ 12 UNITS/KG/HR 17.3 mls/hr IV .Q24H [facility] Rx#: [id number] Oral 0 Output: Urine 950 850 Other: Weight 72.121 kg 79.7 kg PHYSICAL EXAMINATION: GENERAL: The patient is alert and oriented x3, not in any acute distress. Well developed, well nourished. Patient appears to be little tired. But awake and alert oriented 3 HEENT: Pupils are round and equally reacting to light. EOMI. No scleral icterus. No conjunctival pallor. Normocephalic, atraumatic. No pharyngeal erythema. No thyromegaly. CARDIOVASCULAR: S1 and S2 present. No murmurs, rubs, or gallops. PULMONARY: Chest is clear to auscultation, no wheezing or crackles. ABDOMEN: Soft, nontender, nondistended, normoactive bowel sounds. No palpable organomegaly. MUSCULOSKELETAL: No joint swelling or deformity. EXTREMITIES: No cyanosis, clubbing, or pedal edema. NEUROLOGICAL: Gross neurological examination did not reveal any focal deficits. SKIN: No rashes. Results CBC & Chem 7: 08/12/17 07:28 08/11/17 19:31 Labs: Abnormal Lab Results - Last 24 Hours (Table) 08/11/17 08/11/17 08/11/17 Range/Units 19:31 19:31 19:31 WBC 15.3 H (3.8-10.6) k/uL Neutrophils # (Manual) 13.10 H (1.3-7.7) k/uL APTT (22.0-30.0) sec Sodium 135 L (137-145) mmol/L Chloride 96 L (98-107) mmol/L Creatinine 1.68 H (0.66-1.25) mg/dL Plasma Lactic Acid Pramod 2.7 H* (0.7-2.0) mmol/L ALT 18 L (21-72) U/L Urine Protein (Negative) Amorphous Sediment (None) /hpf Urine Bacteria (None) /hpf Hyaline Casts (0-2) /lpf Urine Mucus (None) /hpf U Marijuana (THC) Screen (NotDetected) 08/11/17 08/11/17 Range/Units 19:31 21:25 WBC (3.8-10.6) k/uL Neutrophils # (Manual) (1.3-7.7) k/uL APTT 18.0 L (22.0-30.0) sec Sodium (137-145) mmol/L Chloride (98-107) mmol/L Creatinine (0.66-1.25) mg/dL Plasma Lactic Acid Pramod (0.7-2.0) mmol/L ALT (21-72) U/L Urine Protein Trace H (Negative) Amorphous Sediment Rare H (None) /hpf Urine Bacteria Occasional H (None) /hpf Hyaline Casts 15 H (0-2) /lpf Urine Mucus Occasional H (None) /hpf U Marijuana (THC) Screen Detected H (NotDetected) Thrombosis Risk Factor Assmnt - Choose All That Apply Each Factor Represents 1 point: Age 41-60 years Thrombosis Risk Factor Assessment Total Risk Factor Score: 1 Thrombosis Risk Factor Assessment Level: Low Risk Assessment and Plan Plan: #1 generalized tonic-clonic seizure: Probably a breakthrough seizure Her levels are being obtained and further management as as per neurology. #2 chest pain if he is to be noncardiac in nature cardiology evaluated the patient for that. #3 congestive heart failure chronic systolic dysfunction ejection fraction of 20 %. Patient is not in acute CHF exacerbation at this point of time patient is fairly euvolemic his home CHF medications will be continued and patient actually received IV fluids yesterday for his lactic acidosis secondary to seizure which improved at this point of time patient does not have any signs or symptoms of infection. #4 lactic acidosis due to seizure. #5 COPD without any acute exacerbation #6 seizure disorder #7 gastroesophageal reflux disease
--- NOTE | 2017-08-12 15:41 | P.CNNES ---
History of Present Illness Consult date: 08/12/17 Requesting physician: Ronen Baig Reason for Consult: seizure Chief complaint: seizure History of Present Illness: neurology consultation a 61-year-old male with a history of known generalized tonic-clonic seizure since approximately his teens. On arrival patient was postictal with bowel incontinence. Patient does not remember any of the event. It was witnessed by his . Patient was in lactic acidosis on arrival and improved with IV fluids. Does have a congestive heart failure, patient also complained of minimal chest pain. ED staff evaluated cardiac chest pain and found it was noncardiac. On contact, the patient was left lateral recumbent in bed, alert and oriented 3 ,resting in no acute distress. Patient admits that he has uncontrolled seizures and takes his medication intermittently while using cannabis on a regular basis. Patient also stated he does use alcohol but would not divulge quantity or kind. Based on his responses it does appear that he uses alcohol as well on a regular basis. Patient was noted to have emergency alert device on his left wrist which he states he uses when he senses a seizure and needs help. patient was rather vague about his seizure management and monitoring with either primary care provider or neurologist. EEG was ordered by the ED. Patient' s Keppra dose was increased to 1500 mg twice a day. During rounding, the patient states he has not experienced any new seizure activity. Review of Systems systems not noted previously or negative Past Medical History Past Medical History: Chest Pain / Angina, COPD, GERD/Reflux, Seizure Disorder History of Any Multi-Drug Resistant Organisms: None Reported Past Surgical History: Hernia Repair Additional Past Surgical History / Comment(s): right leg surgery Past Anesthesia/Blood Transfusion Reactions: No Reported Reaction Past Psychological History: Anxiety, Bipolar, Depression Smoking Status: Current every day smoker Past Alcohol Use History: Occasional Past Drug Use History: Marijuana - Past Family History Father Family Medical History: Cancer, Coronary Artery Disease (CAD) Mother Family Medical History: Coronary Artery Disease (CAD), CVA/TIA Medications and Allergies Home Medications Medication Instructions Recorded Confirmed Type Cholecalciferol [Vitamin D3] 5,000 unit PO DAILY 02/03/17 08/11/17 History Losartan [Cozaar] 50 mg PO DAILY 02/03/17 08/11/17 History Levothyroxine Sodium [Synthroid] 75 mcg PO DAILY@0630 tab 02/14/17 08/11/17 Rx QUEtiapine [SEROquel] 50 mg PO HS #30 tab 02/14/17 08/11/17 Rx LORazepam [Ativan] 0.5 mg PO BID PRN 06/06/17 08/11/17 History Venlafaxine HCl [Effexor XR] 225 mg PO DAILY 06/06/17 08/11/17 History levETIRAcetam [Keppra] 1,000 mg PO BID 06/06/17 08/11/17 History Aspirin EC [Ecotrin Low Dose] 81 mg PO HS 06/28/17 08/11/17 History Furosemide [Lasix] 40 mg PO DAILY 06/28/17 08/11/17 History Spironolactone [Aldactone] 12.5 mg PO DAILY 06/28/17 08/11/17 History Metoprolol Tartrate [Lopressor] 25 mg PO BID 08/08/17 08/11/17 History levETIRAcetam [Keppra] 500 mg PO BID 08/08/17 08/11/17 History Allergies Allergy/AdvReac Type Severity Reaction Status Date / Time No Known Allergies Allergy Verified 08/11/17 20:06 Physical Examination - Vital Signs Vital Signs: Vital Signs Temp Pulse Pulse Resp BP BP Pulse Ox 08/12/17 11:59 62 16 08/12/17 11:03 97.0 F L 62 16 87/48 99 08/12/17 08:00 97.0 F L 70 16 106/51 97 08/12/17 04:00 97.0 F L 70 18 101/57 98 08/11/17 23:31 97.8 F 77 18 107/56 95 08/11/17 23:10 97.8 F 77 18 107/56 95 08/11/17 23:02 98.0 F 80 16 112/60 97 08/11/17 21:48 74 16 110/59 96 08/11/17 21:33 71 16 104/56 97 08/11/17 19:42 98.5 F 73 16 89/45 93 L Intake and Output 08/12/17 08/12/17 08/12/17 06:59 14:59 22:59 Intake Total 117.64 0 Output Total 950 850 Balance -832.36 -850 Intake: Intake, IV Titration 117.64 Amount Heparin Sodium,Porcine/ 117.64 D5w Pmx 25,000 unit In Dextrose/Water 1 500ml. bag @ 12 UNITS/KG/HR 17.3 mls/hr IV .Q24H [facility] Rx#: [id number] Oral 0 Output: Urine 950 850 Other: Weight 79.7 kg Constitutional: AOx3, cooperative HEENT: NC/AT, no facial asymmetry is seen. Throat: Supple, no masses Respiratory: No increased work of breathing Cardiac: Regular rate and Rhythm GI: non tender, non distended Musculoskeletal: Loading Checker strengths are equal bilaterally 5/5, Lower extremity strengths are equal bilaterally at 5/5. Neurological: CN II-XII in tact, patient was AOx3, speech and language are normal, no unilateralizing weakness, no seizure activity note on physical exam. Sensation was normal. Integementary: no rash, no erythema Psychiatric: mood and affect appropriate Results - Laboratory Findings CBC and BMP: 08/12/17 07:28 08/11/17 19:31 Abnormal Lab Findings: Abnormal Labs 08/11/17 08/11/17 08/11/17 19:31 19:31 19:31 WBC 15.3 H Neutrophils # (Manual) 13.10 H APTT Sodium 135 L Chloride 96 L Creatinine 1.68 H Plasma Lactic Acid Pramod 2.7 H* ALT 18 L Urine Protein Amorphous Sediment Urine Bacteria Hyaline Casts Urine Mucus U Marijuana (THC) Screen 08/11/17 08/11/17 19:31 21:25 WBC Neutrophils # (Manual) APTT 18.0 L Sodium Chloride Creatinine Plasma Lactic Acid Pramod ALT Urine Protein Trace H Amorphous Sediment Rare H Urine Bacteria Occasional H Hyaline Casts 15 H Urine Mucus Occasional H U Marijuana (THC) Screen Detected H - Diagnostic Findings Comments: CT brain noted no acute process Assessment and Plan (1) Status epilepticus Status: Acute (2) Drug abuse Status: Acute (3) Generalized seizure Status: Acute Plan: 1. Seizuregeneralized 2. Drug usemarijuana 3. Alcohol use Patient does appear to has experienced breakthrough seizure. At this time it is unable to be determined how compliant the patient is with his seizure medication use and seizure management. He admits to using marijuana 1-3 times per day and consuming alcohol on a regular basis. Since being started on Keppra 1500 mg twice a day, patient has had no new seizure activity. CT of the brain was negative/noncontributory. EEG is pending. Continue neuro checks as ordered. Updated Keppra level to be drawn at 0800 hrs. on August 13, 2017 for verification and therapeutic window. Status: Neurology would continue to follow provide updates as needed or warranted. I discussed the patient's pertinent medical information with Dr. Castro. He agrees with the plan of care as implemented.
[2017-08-12] MEDS: FAMOTIDINE 20 MG TAB PO SCH (20:07)
[2017-08-12] MEDS ORDERED: NON-FORMULARY DRUG (Aspirin Ec 81 MG) PO SCH (21:00)
[2017-08-12 22:00] VITALS: RESP 16
[2017-08-13 04:33] VITALS: PULSE 70; TEMP 97.6
[2017-08-13] MEDS: LEVOTHYROXINE 75 MCG TAB PO SCH (06:07)
[2017-08-13 08:01] LABS: CH 32.2; CHCM 33.8; HCT 38.5 % (39.0-53.0); HDW 2.41; MCH 32.3 pg (25.0-35.0); MCHC 33.8 g/dL (31.0-37.0); MCV 95.7 fL (80.0-100.0); Mean Platelet Volume 6.6; RBC 4.02 m/uL (4.30-5.90); RDW 13.2 % (11.5-15.5)
[2017-08-13 08:21] LABS: Anion Gap 8 mmol/L; Blood Urea Nitrogen 12 mg/dL (9-20); Calcium 8.8 mg/dL (8.4-10.2); Carbon Dioxide 25 mmol/L (22-30); Chloride 106 mmol/L (98-107); Glucose 114 mg/dL (74-99); Non-African American GFR(MDRD) >60 (>60 ml/min/1.73 sqM); Potassium 3.9 mmol/L (3.5-5.1); Sodium 139 mmol/L (137-145)
[2017-08-13] MEDS ORDERED: ASPIRIN 81 MG PO SCH (09:00)
[2017-08-13] MEDS: NICOTINE 14MG/24HR PATCH TRANSDERM SCH ×2 (09:05→09:07)
[2017-08-13] MEDS: CHOLECALCIFEROL 1,000 UNIT TAB PO SCH (09:07)
[2017-08-13] MEDS: FUROSEMIDE 40 MG TAB PO SCH (09:07)
[2017-08-13] MEDS: LOSARTAN 50 MG TAB PO SCH (09:07)
[2017-08-13] MEDS: FAMOTIDINE 20 MG TAB PO SCH (09:07)
[2017-08-13] MEDS: METOPROLOL TARTRATE 25 MG TAB PO SCH (09:07)
[2017-08-13] MEDS: VENLAFAXINE HCL ER 75 MG CAP PO SCH (09:08)
[2017-08-13] MEDS: SPIRONOLACTONE 25 MG TAB PO SCH (09:08)
--- NOTE | 2017-08-13 10:47 | ECHOF ---
Referral Reason:cm MEASUREMENTS -------- HEIGHT: 185.4 cm WEIGHT: 73.0 kg BP: 114/56 RVIDd: 3.5 cm (< 3.3) IVSd: 1.1 cm (0.6 - 1.1) LVIDd: 5.4 cm (3.9 - 5.3) LVPWd: 1.1 cm (0.6 - 1.1) IVSs: 1.8 cm LVIDs: 3.4 cm LVPWs: 1.9 cm LA Diam: 3.1 cm (2.7 - 3.8) LAESV Index (A-L): 38.53 ml/m Ao Diam: 4.4 cm (2.0 - 3.7) AV Cusp: 2.4 cm (1.5 - 2.6) MV EXCURSION: 21.171 mm (> 18.000) MV EF SLOPE: 56 mm/s (70 - 150) EPSS: 1.1 cm MV E Kevan: 1.12 m/s MV DecT: 221 ms MV A Kevan: 0.60 m/s MV E/A Ratio: 1.86 RAP: 5.00 mmHg RVSP: 24.33 mmHg FINDINGS -------- Sinus rhythm. This was a technically good study. The left ventricular size is normal. There is borderline concentric left ventricular hypertrophy. Overall left ventricular systolic function is normal with, an EF between 60 - 65 %. The right ventricle is mildly enlarged. LA is moderately dilated 34-39 ml/m2 The right atrium is normal in size. The aortic valve is trileaflet and appears structurally normal. The mitral valve leaflets are mildly thickened. There is trace mitral regurgitation. Mild tricuspid regurgitation present. Right ventricular systolic pressure is normal at < 35 mmHg. There is no pulmonic regurgitation present. The aortic root is dilated measuring 4.4cm. Normal inferior vena cava with normal inspiratory collapse consistent with estimated right atrial pressure of 5 mmHg. There is no pericardial effusion. CONCLUSIONS -------- 1. Sinus rhythm. 2. The mitral valve leaflets are mildly thickened. 3. There is trace mitral regurgitation. 4. Mild tricuspid regurgitation present. 5. Right ventricular systolic pressure is normal at < 35 mmHg. 6. There is no pulmonic regurgitation present. 7. The aortic root is dilated measuring 4.4cm. 8. Normal inferior vena cava with normal inspiratory collapse consistent with estimated right atrial pressure of 5 mmHg. 9. There is no pericardial effusion. 10. This was a technically good study. 11. The left ventricular size is normal. 12. There is borderline concentric left ventricular hypertrophy. 13. Overall left ventricular systolic function is normal with, an EF between 60 - 65 %. 14. The right ventricle is mildly enlarged. 15. LA is moderately dilated 34-39 ml/m2 16. The right atrium is normal in size. 17. The aortic valve is trileaflet and appears structurally normal. POWER LINEMAN TECHNICIAN: Mary Tran RDCS
[2017-08-13 11:39] VITALS: BP 112/57
--- NOTE | 2017-08-13 12:20 | P.PN ---
Subjective Progress Note Date: 08/13/17 Principal diagnosis: status epilepticus, chest pain This is a pleasant 61-year-old gentleman with history of hypertension, smoking, prior alcohol abuse and history of cardiomyopathy in the past. Presented from [facility] with seizure activity and chest pain. A previous admission echocardiogram revealed severely impaired LV systolic function of unclear etiology patient was started on maximize medical therapy. Repeat echo cardiogram this admission shows a normal LV systolic function with an ejection fraction of 60-65%. Upon examination, patient is resting in bed, eating chips. He denies complaints of dizziness, palpitations, syncope, shortness of breath or chest discomfort. Objective - Vital Signs Vital signs: Vital Signs Temp 97.6 F 08/13/17 04:00 Pulse 70 08/13/17 08:00 Resp 16 08/13/17 08:00 BP 112/57 08/13/17 08:00 Pulse Ox 95 08/13/17 08:00 Intake & Output 08/12/17 08/13/17 08/13/17 18:59 06:59 18:59 Intake Total 220 100 240 Output Total 5966 571 8448 Balance -1600 -200 -1660 Weight 73.3 kg Intake: IV 100 0.9 100 Oral 220 240 Output: Urine 3131 199 1250 Other: Voiding Method Urinal Urinal # Voids 3 3 # Bowel Movements 1 - Exam PHYSICAL EXAMINATION: HEENT: [Head is atraumatic, normocephalic. Pupils equal, round. Neck is supple. There is no elevated jugular venous pressure.] HEART EXAMINATION: [Heart sounds regular, S1 and S2 normal. No murmur or gallop heard.] CHEST EXAMINATION:[ Lungs are clear to auscultation and precussion. No chest wall tenderness is noted on palpation or with deep breathing.] ABDOMEN: [ Soft, nontender. Bowel sounds are heard. No organomegaly noted]. EXTREMITIES:[ 2+ peripheral pulses with no evidence of peripheral edema and no calf tenderness noted]. NEUROLOGIC [patient is awake, alert and oriented x3.] . - Labs CBC & Chem 7: 08/13/17 07:44 08/13/17 07:44 Labs: Abnormal Lab Results - Last 24 Hours (Table) 08/13/17 08/13/17 Range/Units 07:44 07:44 WBC 13.0 H (3.8-10.6) k/uL RBC 4.02 L (4.30-5.90) m/uL Hct 38.5 L (39.0-53.0) % Glucose 114 H (74-99) mg/dL Microbiology - Last 24 Hours (Table) 08/11/17 21:25 Urine Culture - Final Urine,Voided Assessment and Plan Plan: Assessment and plan #1 seizure disorder #2 questionable chest discomfort, patient denies at this time #3 prior history of cardiomyopathy, ejection fraction has normalized #4 chronic tobacco use #5 hypertension From cardiology spec perspective, continue aspirin 81 mg daily, losartan 50 mg by mouth daily, metoprolol 25 mg by mouth twice a day and Aldactone 12.5 mg by mouth daily. We will continue to follow the patient provide further recommendations accordingly. END USER SUPPORT SPECIALIST note has been reviewed, I agree with a documented findings and plan of care. Patient was seen and examined.
--- NOTE | 2017-08-13 12:40 | P.DS ---
Providers Date of admission: 08/11/17 21:51 Attending physician: Derrell Sierra Consults: 08/11/17 21:51 Consult Physician Routine Consulting Provider: Connie Castro Consult Reason/Comments: statusEpi Do you want consulting provider notified?: Yes Consult Physician Urgent Consulting Provider: Julius Tan Consult Reason/Comments: cp Do you want consulting provider notified?: Yes Primary care physician: [place] [facility] Course: 61-year-old admitted for seizure, Shukri essentially within normal limits. Patient is presently an increase the dose of Keppra will get the recommendations of the addition of the newer medications or increase the dose of Keppra from neurology and after that patient will be discharged. Patient had ejection fraction of 20% patient apparently was an alcoholic and used to use cocaine in the past which was attributed to his congestive heart failure although his ejection fraction is presently 60-65% because of which after discussion with cardiology of discontinuing all that on and Lasix and patient will be discharged on losartan PHYSICAL EXAMINATION: GENERAL: The patient is alert and oriented x3, not in any acute distress. Well developed, well nourished. HEENT: Pupils are round and equally reacting to light. EOMI. No scleral icterus. No conjunctival pallor. Normocephalic, atraumatic. No pharyngeal erythema. No thyromegaly. CARDIOVASCULAR: S1 and S2 present. No murmurs, rubs, or gallops. PULMONARY: Chest is clear to auscultation, no wheezing or crackles. ABDOMEN: Soft, nontender, nondistended, normoactive bowel sounds. No palpable organomegaly. MUSCULOSKELETAL: No joint swelling or deformity. EXTREMITIES: No cyanosis, clubbing, or pedal edema. NEUROLOGICAL: Gross neurological examination did not reveal any focal deficits. SKIN: No rashes. #1 generalized tonic-clonic seizure: Probably a breakthrough seizure Her levels are being obtained and further management as as per neurology. #2 chest pain if he is to be noncardiac in nature cardiology evaluated the patient for that. #3 congestive heart failure chronic systolic dysfunction ejection fraction of 20 %. His ejection fraction presently 60-65%. Patient is euvolemic #4 lactic acidosis due to seizure. Resolved lactic acidosis #5 COPD without any acute exacerbation #6 seizure disorder #7 gastroesophageal reflux disease Patient Condition at Discharge: Fair Plan - Discharge Summary New Discharge Prescriptions: Discontinued Spironolactone [Aldactone] 12.5 mg PO DAILY Furosemide [Lasix] 40 mg PO DAILY No Action Cholecalciferol [Vitamin D3] 5,000 unit PO DAILY Losartan [Cozaar] 50 mg PO DAILY QUEtiapine [SEROquel] 50 mg PO HS #30 tab Levothyroxine Sodium [Synthroid] 75 mcg PO DAILY@0630 tab LORazepam [Ativan] 0.5 mg PO BID PRN PRN Reason: Anxiety levETIRAcetam [Keppra] 1,000 mg PO BID Venlafaxine HCl [Effexor XR] 225 mg PO DAILY Aspirin EC [Ecotrin Low Dose] 81 mg PO HS levETIRAcetam [Keppra] 500 mg PO BID Metoprolol Tartrate [Lopressor] 25 mg PO BID Discharge Medication List Cholecalciferol [Vitamin D3] 5,000 unit PO DAILY 02/03/17 [History] Losartan [Cozaar] 50 mg PO DAILY 02/03/17 [History] Levothyroxine Sodium [Synthroid] 75 mcg PO DAILY@0630 tab 02/14/17 [Rx] QUEtiapine [SEROquel] 50 mg PO HS #30 tab 02/14/17 [Rx] LORazepam [Ativan] 0.5 mg PO BID PRN 06/06/17 [History] Venlafaxine HCl [Effexor XR] 225 mg PO DAILY 06/06/17 [History] levETIRAcetam [Keppra] 1,000 mg PO BID 06/06/17 [History] Aspirin EC [Ecotrin Low Dose] 81 mg PO HS 06/28/17 [History] Metoprolol Tartrate [Lopressor] 25 mg PO BID 08/08/17 [History] levETIRAcetam [Keppra] 500 mg PO BID 08/08/17 [History] Follow up Appointment(s)/Referral(s): Angelo Lobo MD [Primary Care Provider] - 3 Days Connie Castro MD [STAFF PHYSICIAN] - 1 Week Discharge Disposition: HOME SELF-CARE
--- NOTE | 2017-08-13 19:18 | EEG ---
ELECTROENCEPHALOGRAM REPORT DATE OF SERVICE: 08/13/2017. REASON FOR TESTING: Seizure. CURRENT ANTIEPILEPTIC MEDICATIONS: Keppra. DESCRIPTION OF THE PROCEDURE: This EEG was performed using a 21 channel digital electroencephalograph, following international 10-20 system. DESCRIPTION OF THE RECORDING: From the beginning of the tracing, and with patient's eyes closed, the background rhythm was mostly consisting of 9 Hz alpha frequency in the posterior occipital leads. No obvious asymmetry is seen. Photic stimulation was performed with a good driving response seen. No pathological waves were elicited. Hyperventilation was not performed. Rare movement artifacts are seen. The patient remains awake throughout the tracing. No epileptiform discharges were seen. His EKG lead showed a regular rate and rhythm. INTERPRETATION: This awake EEG can be considered within normal limits. There was no asymmetry seen. No epileptiform discharges were noticed. The absence of epileptiform discharges does not rule out the diagnosis of epilepsy, therefore clinical correlation is recommended. [id number] / IJN: [id number] /
== END 2017-08-13 17:15 | disposition home or self-care (01) | DRG 101 ==
LOC: EC 19:41 → 6SEL 21:51
PROVIDERS: ADMIT Hospitalist; ATTEND Hospitalist
DX: G40.401 Other generalized epilepsy and epileptic syndromes, not intractable, with status epilepticus (principal); I11.0 Hypertensive heart disease with heart failure; E87.2 Acidosis; I50.22 Chronic systolic (congestive) heart failure; J44.9 Chronic obstructive pulmonary disease, unspecified; K21.9 Gastro-esophageal reflux disease without esophagitis; R07.89 Other chest pain; R15.9 Full incontinence of feces; F41.9 Anxiety disorder, unspecified; F31.9 Bipolar disorder, unspecified; F10.10 Alcohol abuse, uncomplicated; F12.90 Cannabis use, unspecified, uncomplicated; F20.9 Schizophrenia, unspecified; F17.200 Nicotine dependence, unspecified, uncomplicated; Z79.899 Other long term (current) drug therapy; Z79.82 Long term (current) use of aspirin; Z82.49 Family history of ischemic heart disease and other diseases of the circulatory system
CPT/HCPCS: 36415; 70450; 71020; 80048; 80053; 80061; 80177; 80306; 80320; 81001; 82140; 82550; 82553; 83520; 83605; 83735; 84100; 84443; 84484; 85025; 85027; 85049; 85610; 85730; 87086; 93005; 93306; 95819; 96361; 96365; 96376; 99285

== ENCOUNTER → 2017-08-22 | Outpatient (CLI) | payer OTHER ==
[2017-08-22 11:20] LABS: Basophils # (A) 0.1 k/uL (0-0.2); Basophils % (A) 1 %; CH 33.3; CHCM 34.1; Eosinophils # (A) 0.2 k/uL (0-0.7); Eosinophils % (A) 2 %; HCT 43.1 % (39.0-53.0); HDW 2.46; HGB 13.9 gm/dL (13.0-17.5); Luc # (Auto) 0.14; Luc % (Auto) 2; Lymphocytes % (A) 21 %; MCH 31.7 pg (25.0-35.0); MCHC 32.3 g/dL (31.0-37.0); MCV 98.2 fL (80.0-100.0); Mean Platelet Volume 7.2; Monocytes # (A) 0.4 k/uL (0-1.0); Monocytes % (A) 5 %; Neutrophils # (A) 6.7 k/uL (1.3-7.7); Neutrophils % (A) 71 %; RBC 4.39 m/uL (4.30-5.90); RDW 13.8 % (11.5-15.5); WBC 9.5 k/uL (3.8-10.6); WBC (Perox) 9.13
[2017-08-22 11:25] LABS: Anion Gap 9 mmol/L; Blood Urea Nitrogen 13 mg/dL (9-20); Calcium 8.5 mg/dL (8.4-10.2); Carbon Dioxide 26 mmol/L (22-30); Chloride 109 mmol/L (98-107); Glucose 90 mg/dL (74-99); Non-African American GFR(MDRD) >60 (>60 ml/min/1.73 sqM); Phosphorous 4.1 mg/dL (2.5-4.5); Potassium 4.9 mmol/L (3.5-5.1); Sodium 144 mmol/L (137-145)
== END | disposition home or self-care (01) ==
LOC: LABWHC1 10:37
PROVIDERS: ATTEND Psychiatry & Neurology Neurology
DX: Z09 Encounter for follow-up examination after completed treatment for conditions other than malignant neoplasm (principal); G40.209 Localization-related (focal) (partial) symptomatic epilepsy and epileptic syndromes with complex partial seizures, not intractable, without status epilepticus; R94.4 Abnormal results of kidney function studies; D72.829 Elevated white blood cell count, unspecified
CPT/HCPCS: 36415; 80069; 80177; 83930; 83935; 85025

== ENCOUNTER 2017-08-28 09:34 | Day surgery (SDC) | payer OTHER ==
[2017-08-27 09:32] VITALS: BMI 22.1
[~2017-08-28 09:34] MED LIST: LACTATED RINGERS 1,000 ML IV SCH
[2017-08-28 10:10] VITALS: RESP 18; TEMP 97.2
[2017-08-28] MEDS ORDERED: LIDOCAINE 1% 20 ML VIAL (10MG/ML) FOR IV START INTRADERMA ONE (10:23)
[2017-08-28] MEDS ORDERED: MIDAZOLAM 2 MG/2 ML VIAL ONE (11:06)
[2017-08-28] MEDS ORDERED: PROPOFOL 10 MG/ML 20 ML VIAL IV ONE (11:06)
[2017-08-28] MEDS ORDERED: LIDOCAINE 1% INJ 10MG/ML (20 ML MDV) ONE (11:06)
[2017-08-28] MEDS ORDERED: fentaNYL (PF) 50 MCG/ML 2 ML AMP ONE (11:06)
--- NOTE | 2017-08-28 11:53 | P.PCN ---
Date of Procedure: 08/28/17 Procedure(s) Performed: Procedures: 1. Esophagogastroduodenoscopy and biopsy. 2. Colonoscopy and biopsy. Preoperative diagnosis: Chronic reflux symptoms and change in bowel habits. Operative diagnosis: 1. Small sliding hiatal hernia with no obvious esophagitis or complicated reflux disease. 2. Mild antral gastritis. 3. Diverticulosis with no evidence of acute diverticulitis or strictures. 4. No polyps or cancer seen. 5. Biopsies obtained from the duodenum, antrum, esophagus, terminal ileum and right colon revealed Preparation: HalfLytely prep. Sedation: Was provided by anesthesia. Brief clinical history: The patient is a 61-year-old male who I have evaluated in the office regarding chronic reflux and change in bowel habits in the form of diarrhea. He had no recent upper endoscopy or colonoscopy. Procedure: With the patient on his left lateral decubitus position and after informed consent and adequate sedation, I passed the Olympus-GIF 160 video upper endoscope through the cricopharyngeus down the esophagus. GE junction was around 40 cm from the incisors and there was a very small hardly noticed sliding hiatal hernia. There was no esophagitis or evidence of complicated reflux disease. The endoscope was then passed into the stomach which was insufflated with air and inspected in detail including the retroflex view in the cardia. There was mottling and erythema in the antrum with no ulcers or erosions. Pyloric channel, duodenal bulb, post bulbar area and descending duodenum appeared within normal limits. I obtained biopsies from the duodenum, antrum and esophagus then the endoscope was withdrawn and I proceeded to do colonoscopy. Perianal area did not show any fissures or fistulas. There were no masses felt on digital rectal examination. The Olympus CFQ 160L video colonoscope was then inserted in the rectum in the usual fashion and advanced to the cecum. I intubated the ileocecal valve and examined the terminal ileum as well. Terminal ileum and colon showed healthy mucosa. I obtained biopsies in the terminal ileum and right colon. There were multiple diverticular orifices seen scattered along the length of the bowel more in the sigmoid with no evidence of acute diverticulitis or strictures. No polyps or tumors were seen or any other significant pathology. I retroflexed the endoscope in the rectum before the endoscope was withdrawn. The patient tolerated the procedure well. Plan: The patient was reassured. Will await biopsy results and make further plans based on his course and biopsy results. I will keep you updated on his progress.
[2017-08-28 12:10] VITALS: BP 128/77; PULSE 60
== END 2017-08-28 12:50 | disposition home or self-care (01) ==
LOC: ORWHC2ENDO 09:34
DX: K29.50 Unspecified chronic gastritis without bleeding (principal); K44.9 Diaphragmatic hernia without obstruction or gangrene; K57.30 Diverticulosis of large intestine without perforation or abscess without bleeding; R19.4 Change in bowel habit; K21.9 Gastro-esophageal reflux disease without esophagitis; J44.9 Chronic obstructive pulmonary disease, unspecified; I11.0 Hypertensive heart disease with heart failure; I50.9 Heart failure, unspecified; F39 Unspecified mood [affective] disorder; R41.3 Other amnesia; Z79.899 Other long term (current) drug therapy; Z79.82 Long term (current) use of aspirin; Z72.0 Tobacco use
CPT/HCPCS: 88305; 88342; 45380; 43239; J2250; J2001; J3010; J2704

== ENCOUNTER → 2017-09-10 | Outpatient (CLI) | payer OTHER ==
--- NOTE | 2017-09-12 14:18 | P.ARTDOP ---
Arterial Doppler LOWER EXTREMITY ARTERIAL DOPPLER: DATE OF SERVICE: 09/10/2017 Reason for study: Foot discoloration. Doppler waveforms: Multiphasic bilaterally throughout. Pulse volume recording: Normal configuration. Pressure gradients: None. Ankle-brachial indices: Greater than 1 bilaterally. Toe pressures: [] on the right, [] on the left Impression: Normal study.
== END | disposition home or self-care (01) ==
LOC: RADUSWWP 09:45
PROVIDERS: ATTEND Family Medicine
DX: L81.9 Disorder of pigmentation, unspecified (principal)
CPT/HCPCS: 93923

== ENCOUNTER → 2017-09-11 | Outpatient (CLI) | payer OTHER ==
[2017-09-13 13:05] LABS: Alternaria alternata IgE <0.35 kU/L (<0.35); Asperg. fumagatus IgE <0.35 kU/L (<0.35); Asperg. fumagatus IgE Class CLASS 0; Birch(Com.Silvr) IgE Class CLASS 0; Cat Epith & Dander IgE <0.35 kU/L (<0.35); Cat Epith & Dander IgE Class CLASS 0; Clad herbarum IgE <0.35 kU/L (<0.35); Clad herbarum IgE Class CLASS 0; Common Ragweed IgE Class CLASS 0; Dermato. Pteronyssinus Class CLASS 0; Dermato. Pteronyssinus IgE <0.35 kU/L (<0.35); Dermato. farinae IgE <0.35 kU/L (<0.35); Dermato. farinae IgE Class CLASS 0; Maple (Box Elder) IgE <0.35 kU/L (<0.35); Maple (Box Elder) IgE Class CLASS 0; Mountain Cedar IgE <0.35 kU/L (<0.35); Mountain Cedar IgE Class CLASS 0; Mouse Urine IgE Class CLASS 0; Mouse Urine Proteins,IgE <0.35 kU/L (<0.35); Mulberry IgE Class CLASS 0; Nettle IgE <0.35 kU/L (<0.35); Nettle IgE Class CLASS 0; Oak IgE <0.35 kU/L (<0.35); Penicillium notatum IgE Class CLASS 0; Rough Marshelder IgE <0.35 kU/L (<0.35); Rough Marshelder IgE Class CLASS 0; Timothy Grass IgE <0.35 kU/L (<0.35); Timothy Grass IgE Class CLASS 0; White Ash IgE Class CLASS 0
[2017-09-16 18:30] LABS: Alternaria Alternata IgG 2.2 mcg/mL (< 13.6); Cladosporium herbarium IgG 29.7 mcg/mL (< 14.7); Phoma ssp. IgG 2.9 mcg/mL (< 6.6); Saccaharomospora viridis Not detected (Not detected); Saccaharopoly. rectivirgula Not detected (Not detected)
== END ==
LOC: CPPFTMAIN 10:31
PROVIDERS: ATTEND Internal Medicine
DX: R06.02 Shortness of breath (principal); J45.909 Unspecified asthma, uncomplicated
CPT/HCPCS: 36415; 82103; 82104; 82785; 86001; 86003; 86606; 86609; 94060; 94726; 94729

== ENCOUNTER → 2017-11-21 | Outpatient (CLI) | payer SELFPAY ==
[2017-11-21 15:17] LABS: ALT 29 U/L (21-72); AST 18 U/L (17-59); Albumin 4.3 g/dL (3.5-5.0); Alkaline Phosphatase 63 U/L (38-126); Anion Gap 9 mmol/L; Blood Urea Nitrogen 20 mg/dL (9-20); Calcium 9.6 mg/dL (8.4-10.2); Carbon Dioxide 29 mmol/L (22-30); Chloride 102 mmol/L (98-107); Glucose 80 mg/dL (74-99); Potassium 4.1 mmol/L (3.5-5.1); Sodium 140 mmol/L (137-145); Total Bilirubin 0.4 mg/dL (0.2-1.3); Total Protein 6.9 g/dL (6.3-8.2)
== END | disposition home or self-care (01) ==
LOC: LABWHC1 14:42
PROVIDERS: ATTEND Family Medicine
DX: E87.5 Hyperkalemia (principal)
CPT/HCPCS: 36415; 80053; 84100

== ENCOUNTER 2017-12-30 19:26 | Emergency (ER) | payer MEDICARE ==
[2017-12-30] MEDS ORDERED: SODIUM CHLORIDE 0.9% 1,000 ML IV STA ×2 (19:33)
[2017-12-30] MEDS ORDERED: LORazepam 2 MG/ML INJ IV STA (19:33)
[2017-12-30] MEDS ORDERED: levETIRAcetam IV 1,000 MG in SALINE 1 100ML.BAG IVPB STA (19:34)
[2017-12-30 19:53] LABS: Basophils % (A) 0 %; Eosinophils # (A) 0.2 k/uL (0-0.7); Eosinophils % (A) 2 %; HGB 13.2 gm/dL (13.0-17.5); Lymphocytes # (A) 2.5 k/uL (1.0-4.8); Lymphocytes % (A) 25 %; MCH 30.5 pg (25.0-35.0); MCHC 32.3 g/dL (31.0-37.0); Mean Platelet Volume 6.8; Monocytes # (A) 0.5 k/uL (0-1.0); Monocytes % (A) 5 %; Neutrophils # (A) 6.9 k/uL (1.3-7.7); Neutrophils % (A) 67 %; Platelet Count 281 k/uL (150-450); RBC 4.34 m/uL (4.30-5.90); RDW 12.6 % (11.5-15.5); WBC 10.3 k/uL (3.8-10.6)
[2017-12-30 19:59] LABS: MCV 94.5 fL (80.0-100.0)
[2017-12-30 20:12] LABS: ALT 10 U/L (21-72); AST 23 U/L (17-59); Acetaminophen <10.0 ug/mL; Albumin 4.2 g/dL (3.5-5.0); Alcohol <10 mg/dL; Alkaline Phosphatase 65 U/L (38-126); Anion Gap 23 mmol/L; Blood Urea Nitrogen 9 mg/dL (9-20); Calcium 9.5 mg/dL (8.4-10.2); Carbon Dioxide 14 mmol/L (22-30); Chloride 98 mmol/L (98-107); Glucose 102 mg/dL (74-99); Magnesium 2.2 mg/dL (1.6-2.3); Phosphorus 4.1 mg/dL (2.5-4.5); Potassium 4.1 mmol/L (3.5-5.1); Salicylate <1.0 mg/dL; Sodium 135 mmol/L (137-145); Total Bilirubin 0.4 mg/dL (0.2-1.3); Total Protein 6.7 g/dL (6.3-8.2)
--- NOTE | 2017-12-30 20:15 | ED ---
General Adult HPI - General Chief complaint: Seizure Stated complaint: seizure Time Seen by Provider: 12/30/17 19:30 Source: EMS, RN notes reviewed, old records reviewed Mode of arrival: EMS Limitations: altered mental status - History of Present Illness Initial comments: This is a 8-year-old male the ER prevention seizure. Patient has history of seizures on Keppra. Patient has recurrent seizure. Postictal state bit tongue. Patient states is been taking all medications as prescribed, this time is return to normal baseline. He has no other complaints. Patient otherwise history is obtained from EMS and patient's daughter at bedside - Related Data Home Medications Medication Instructions Recorded Confirmed Cholecalciferol [Vitamin D3] 5,000 unit PO DAILY 02/03/17 12/30/17 Venlafaxine HCl [Effexor XR] 225 mg PO DAILY 06/06/17 12/30/17 Aspirin EC [Ecotrin Low Dose] 81 mg PO HS 06/28/17 12/30/17 Metoprolol Tartrate [Lopressor] 25 mg PO BID 08/08/17 12/30/17 Losartan Potassium 50 mg PO DAILY 12/30/17 12/30/17 Montelukast [Singulair] 10 mg PO HS 12/30/17 12/30/17 Previous Rx's Medication Instructions Recorded Levothyroxine Sodium [Synthroid] 75 mcg PO DAILY@0630 tab 02/14/17 levETIRAcetam [Keppra] 1,500 mg PO Q12HR #60 tab 12/06/17 metFORMIN HCL [Glucophage Xr] 500 mg PO BID #60 tab 12/06/17 Allergies Allergy/AdvReac Type Severity Reaction Status Date / Time No Known Allergies Allergy Verified 12/30/17 19:34 Review of Systems ROS Statement: Those systems with pertinent positive or pertinent negative responses have been documented in the HPI. ROS Other: All systems not noted in ROS Statement are negative. Past Medical History Past Medical History: Chest Pain / Angina, Heart Failure, COPD, GERD/Reflux, Hypertension, Seizure Disorder, Thyroid Disorder Additional Past Medical History / Comment(s): Memory impairment, legally incapacitated, hypothyroid, small hiatal hernia, diverticulosis. History of Any Multi-Drug Resistant Organisms: None Reported Past Surgical History: Hernia Repair, Joint Replacement, Orthopedic Surgery Additional Past Surgical History / Comment(s): 08/2017 EGGD/colonoscopy, prior colonoscopy, umbilical hernia repair, L total knee, R partial knee replacement, R lower leg fracture with ORIF (hardware in place), ERCP, bilateral knee arthroscopies. Past Anesthesia/Blood Transfusion Reactions: No Reported Reaction Past Psychological History: Anxiety, Bipolar, Depression, Schizophrenia Smoking Status: Current every day smoker Past Alcohol Use History: Occasional Past Drug Use History: None Reported - Past Family History Father Family Medical History: Cancer, Coronary Artery Disease (CAD), Pneumonia Additional Family Medical History / Comment(s): Father had a pacemaker. He of pneumonia. Mother Family Medical History: Coronary Artery Disease (CAD), CVA/TIA General Exam Limitations: altered mental status General appearance: alert, in no apparent distress Head exam: Present: atraumatic, normocephalic, normal inspection Eye exam: Present: normal appearance, PERRL, EOMI. Absent: scleral icterus, conjunctival injection, periorbital swelling ENT exam: Present: normal exam, mucous membranes moist Neck exam: Present: normal inspection. Absent: tenderness, meningismus, lymphadenopathy Respiratory exam: Present: normal lung sounds bilaterally. Absent: respiratory distress, wheezes, rales, rhonchi, stridor Cardiovascular Exam: Present: regular rate, normal rhythm, normal heart sounds. Absent: systolic murmur, diastolic murmur, rubs, gallop, clicks GI/Abdominal exam: Present: soft, normal bowel sounds. Absent: distended, tenderness, guarding, rebound, rigid Extremities exam: Present: normal inspection, full ROM, normal capillary refill. Absent: tenderness, pedal edema, joint swelling, calf tenderness Back exam: Present: normal inspection Neurological exam: Present: alert, oriented X3, CN II-XII intact Psychiatric exam: Present: normal affect, normal mood Skin exam: Present: warm, dry, intact, normal color. Absent: rash Course Vital Signs 12/30/17 12/30/17 19:30 21:01 Temperature 98.8 F 99.0 F Pulse Rate 97 76 Respiratory 32 H 18 Rate Blood Pressure 144/76 133/64 O2 Sat by Pulse 97 97 Oximetry EKG Findings - EKG Comments: EKG Findings:: EKG shows normal sinus rhythm rate of 86, TN 184, QRS 124, QTC 490 Medical Decision Making - Medical Decision Making 62 male the ER with seizure history of seizures. No injury, patient will follow up with neurology for increasing seizure medication - Lab Data Result diagrams: 12/30/17 19:40 12/30/17 19:40 Lab Results 12/30/17 12/30/17 12/30/17 Range/Units 19:40 19:40 19:40 WBC 10.3 (3.8-10.6) k/uL RBC 4.34 (4.30-5.90) m/uL Hgb 13.2 (13.0-17.5) gm/dL Hct 41.0 (39.0-53.0) % MCV 94.5 D (80.0-100.0) fL MCH 30.5 (25.0-35.0) pg MCHC 32.3 (31.0-37.0) g/dL RDW 12.6 (11.5-15.5) % Plt Count 281 (150-450) k/uL Neutrophils % 67 % Lymphocytes % 25 % Monocytes % 5 % Eosinophils % 2 % Basophils % 0 % Neutrophils # 6.9 (1.3-7.7) k/uL Lymphocytes # 2.5 (1.0-4.8) k/uL Monocytes # 0.5 (0-1.0) k/uL Eosinophils # 0.2 (0-0.7) k/uL Basophils # 0.0 (0-0.2) k/uL Sodium 135 L (137-145) mmol/L Potassium 4.1 (3.5-5.1) mmol/L Chloride 98 (98-107) mmol/L Carbon Dioxide 14 L (22-30) mmol/L Anion Gap 23 mmol/L BUN 9 (9-20) mg/dL Creatinine 1.10 (0.66-1.25) mg/dL Est GFR (MDRD) Af Amer >60 (>60 ml/min/1.73 sqM) Est GFR (MDRD) Non-Af >60 (>60 ml/min/1.73 sqM) Glucose 102 H (74-99) mg/dL Calcium 9.5 (8.4-10.2) mg/dL Phosphorus 4.1 (2.5-4.5) mg/dL Magnesium 2.2 (1.6-2.3) mg/dL Total Bilirubin 0.4 (0.2-1.3) mg/dL AST 23 (17-59) U/L ALT 10 L (21-72) U/L Alkaline Phosphatase 65 (38-126) U/L Total Protein 6.7 (6.3-8.2) g/dL Albumin 4.2 (3.5-5.0) g/dL Urine Color Urine Appearance (Clear) Urine pH (5.0-8.0) Ur Specific [place] (1.001-1.035) Urine Protein (Negative) Ur Protein Confirm Urine Glucose (UA) (Negative) Urine Ketones (Negative) Urine Blood (Negative) Urine Nitrite (Negative) Urine Bilirubin (Negative) Ur Bilirubin Confirm Urine Urobilinogen (<2.0) mg/dL Ur Leukocyte Esterase (Negative) Urine RBC (0-5) /hpf Urine WBC (0-5) /hpf Ur Squamous Epith Cells (0-4) /hpf Amorphous Sediment (None) /hpf Urine Bacteria (None) /hpf Hyaline Casts (0-2) /lpf Urine Mucus (None) /hpf Salicylates <1.0 mg/dL Urine Opiates Screen (NotDetected) Ur Oxycodone Screen (NotDetected) Urine Methadone Screen (NotDetected) Ur Propoxyphene Screen (NotDetected) Acetaminophen <10.0 ug/mL Ur Barbiturates Screen (NotDetected) U Tricyclic Antidepress (NotDetected) Levetiracetam 45.8 (3.0-60.0) ug/mL Ur Phencyclidine Scrn (NotDetected) Ur Amphetamines Screen (NotDetected) U Methamphetamines Scrn (NotDetected) U Benzodiazepines Scrn (NotDetected) Urine Cocaine Screen (NotDetected) U Marijuana (THC) Screen (NotDetected) Serum Alcohol <10 mg/dL 12/30/17 Range/Units 20:40 WBC (3.8-10.6) k/uL RBC (4.30-5.90) m/uL Hgb (13.0-17.5) gm/dL Hct (39.0-53.0) % MCV (80.0-100.0) fL MCH (25.0-35.0) pg MCHC (31.0-37.0) g/dL RDW (11.5-15.5) % Plt Count (150-450) k/uL Neutrophils % % Lymphocytes % % Monocytes % % Eosinophils % % Basophils % % Neutrophils # (1.3-7.7) k/uL Lymphocytes # (1.0-4.8) k/uL Monocytes # (0-1.0) k/uL Eosinophils # (0-0.7) k/uL Basophils # (0-0.2) k/uL Sodium (137-145) mmol/L Potassium (3.5-5.1) mmol/L Chloride (98-107) mmol/L Carbon Dioxide (22-30) mmol/L Anion Gap mmol/L BUN (9-20) mg/dL Creatinine (0.66-1.25) mg/dL Est GFR (MDRD) Af Amer (>60 ml/min/1.73 sqM) Est GFR (MDRD) Non-Af (>60 ml/min/1.73 sqM) Glucose (74-99) mg/dL Calcium (8.4-10.2) mg/dL Phosphorus (2.5-4.5) mg/dL Magnesium (1.6-2.3) mg/dL Total Bilirubin (0.2-1.3) mg/dL AST (17-59) U/L ALT (21-72) U/L Alkaline Phosphatase (38-126) U/L Total Protein (6.3-8.2) g/dL Albumin (3.5-5.0) g/dL Urine Color Yellow Urine Appearance Clear (Clear) Urine pH 5.5 (5.0-8.0) Ur Specific [place] 1.009 (1.001-1.035) Urine Protein 1+ H (Negative) Ur Protein Confirm Not Reportable Urine Glucose (UA) Negative (Negative) Urine Ketones 1+ H (Negative) Urine Blood Negative (Negative) Urine Nitrite Negative (Negative) Urine Bilirubin Negative (Negative) Ur Bilirubin Confirm Not Reportable Urine Urobilinogen <2.0 (<2.0) mg/dL Ur Leukocyte Esterase Negative (Negative) Urine RBC 2 (0-5) /hpf Urine WBC 1 (0-5) /hpf Ur Squamous Epith Cells <1 (0-4) /hpf Amorphous Sediment Rare H (None) /hpf Urine Bacteria Rare H (None) /hpf Hyaline Casts 14 H (0-2) /lpf Urine Mucus Occasional H (None) /hpf Salicylates mg/dL Urine Opiates Screen Not Detected (NotDetected) Ur Oxycodone Screen Not Detected (NotDetected) Urine Methadone Screen Not Detected (NotDetected) Ur Propoxyphene Screen Not Detected (NotDetected) Acetaminophen ug/mL Ur Barbiturates Screen Not Detected (NotDetected) U Tricyclic Antidepress Not Detected (NotDetected) Levetiracetam (3.0-60.0) ug/mL Ur Phencyclidine Scrn Not Detected (NotDetected) Ur Amphetamines Screen Not Detected (NotDetected) U Methamphetamines Scrn Not Detected (NotDetected) U Benzodiazepines Scrn Detected H (NotDetected) Urine Cocaine Screen Not Detected (NotDetected) U Marijuana (THC) Screen Detected H (NotDetected) Serum Alcohol mg/dL Disposition Clinical Impression: Generalized seizure Disposition: HOME SELF-CARE Condition: Good Instructions: Recurrent Seizures in Adults (ED) Referrals: Lucia Kc MD [Primary Care Provider] - 1-2 days
[2017-12-30 20:57] LABS: Amorphous Sediment,Urine Rare /hpf; Bacteria,Urine Rare /hpf; Hyaline Casts,Urine 14 /lpf (0-2); Mucus,Urine Occasional /hpf; RBC,Urine 2 /hpf (0-5); WBC,Urine 1 /hpf (0-5)
[2017-12-30 21:01] LABS: Amphetamine Screen,Urine Not Detected (NotDetected); Barbiturate Screen,Urine Not Detected (NotDetected); Benzodiazepines Screen,Urine Detected (NotDetected); Cocaine Screen,Urine Not Detected (NotDetected); Methadone Screen, Urine Not Detected (NotDetected); Opiate Screen,Urine Not Detected (NotDetected); Oxycodone Screen, Urine Not Detected (NotDetected); Phencyclidine Screen,Urine Not Detected (NotDetected); Tricyclic Antidepressant,Urine Not Detected (NotDetected); Urn Cannabinoid Scrn Detected (NotDetected)
[2017-12-30 21:02] VITALS: BP 133/64; PULSE 76; RESP 18; TEMP 99
[2017-12-30 21:10] LABS: Appearance,Urine Clear (Clear); Bilirubin,Urine Negative (Negative); Blood,Urine Negative (Negative); Color,Urine Yellow; Glucose,Urine (UA) Negative (Negative); Ketones,Urine 1+ (Negative); Leukocyte Esterase,Urine Negative (Negative); Nitrite,Urine Negative (Negative); PH, Urine 5.5 (5.0-8.0); Protein,Urine 1+ (Negative); Specific Gravity,Urine 1.009 (1.001-1.035); Squamous Epithelial Cell,Urine <1 /hpf (0-4); Urobilinogen,Urine <2.0 mg/dL (<2.0)
== END 2017-12-30 21:02 | disposition home or self-care (01) ==
LOC: EC 19:26
DX: G40.909 Epilepsy, unspecified, not intractable, without status epilepticus (principal); J44.9 Chronic obstructive pulmonary disease, unspecified; I11.0 Hypertensive heart disease with heart failure; I50.9 Heart failure, unspecified; F41.9 Anxiety disorder, unspecified; F31.9 Bipolar disorder, unspecified; F17.200 Nicotine dependence, unspecified, uncomplicated; Z96.651 Presence of right artificial knee joint
CPT/HCPCS: 36415; 93005; 80053; 80177; 83735; 84100; 85025; 81001; 80306; 83520 ×2; 80320; 99284; 96365; 96375; J2060; J1953

== ENCOUNTER 2018-01-15 22:49 | Observation (INO) | payer MEDICARE ==
[2018-01-15] MEDS ORDERED: SODIUM CHLORIDE 0.9% 1,000 ML IV STA (22:54)
--- NOTE | 2018-01-15 23:06 | ED ---
Syncope HPI - General Stated Complaint: FALL Time Seen by Provider: 01/15/18 22:49 Source: patient, EMS, RN notes reviewed Mode of arrival: EMS Limitations: no limitations - History of Present Illness Initial Comments: This is a 62-year-old male with a history of bipolar disorder schizophrenia seizures with a single episode prior to admission apparently was reaching for his oxygen which he wears at night he does not recall any of this and he fell hitting a door with his face. He does not recall any of this year was out approximately 30 seconds per paramedics at report of the family. He has complaint of facial pain no neck or back pain at this time he was noted have a heart rate in the 40s at times on the cardiac technologist per EMS. No reports of fevers chills nausea vomiting sweats or other symptoms he has any history of seizures he is on Keppra he has been taking his medications except he did run out of his bipolar meds about a week ago. He also takes a daily aspirin MD Complaint: loss of consciousness - Related Data Home Medications Medication Instructions Recorded Confirmed Cholecalciferol [Vitamin D3] 5,000 unit PO DAILY 02/03/17 01/15/18 Venlafaxine HCl [Effexor XR] 225 mg PO DAILY 06/06/17 01/15/18 Aspirin EC [Ecotrin Low Dose] 81 mg PO HS 06/28/17 01/15/18 Metoprolol Tartrate [Lopressor] 25 mg PO BID 08/08/17 01/15/18 Losartan Potassium 50 mg PO DAILY 12/30/17 01/15/18 Montelukast [Singulair] 10 mg PO HS 12/30/17 01/15/18 QUEtiapine [SEROquel] 50 mg PO HS 01/15/18 01/15/18 Previous Rx's Medication Instructions Recorded Levothyroxine Sodium [Synthroid] 75 mcg PO DAILY@0630 tab 02/14/17 levETIRAcetam [Keppra] 1,500 mg PO Q12HR #60 tab 12/06/17 Allergies Allergy/AdvReac Type Severity Reaction Status Date / Time No Known Allergies Allergy Verified 01/15/18 23:24 Review of Systems ROS Statement: Those systems with pertinent positive or pertinent negative responses have been documented in the HPI. ROS Other: All systems not noted in ROS Statement are negative. Past Medical History Past Medical History: Chest Pain / Angina, Heart Failure, COPD, GERD/Reflux, Hypertension, Seizure Disorder, Thyroid Disorder Additional Past Medical History / Comment(s): Memory impairment, legally incapacitated, hypothyroid, small hiatal hernia, diverticulosis. History of Any Multi-Drug Resistant Organisms: None Reported Past Surgical History: Hernia Repair, Joint Replacement, Orthopedic Surgery Additional Past Surgical History / Comment(s): 08/2017 EGGD/colonoscopy, prior colonoscopy, umbilical hernia repair, L total knee, R partial knee replacement, R lower leg fracture with ORIF (hardware in place), ERCP, bilateral knee arthroscopies. Past Anesthesia/Blood Transfusion Reactions: No Reported Reaction Past Psychological History: Anxiety, Bipolar, Depression, Schizophrenia Smoking Status: Current every day smoker Past Alcohol Use History: Occasional Past Drug Use History: Marijuana - Past Family History Father Family Medical History: Cancer, Coronary Artery Disease (CAD), Pneumonia Additional Family Medical History / Comment(s): Father had a pacemaker. He of pneumonia. Mother Family Medical History: Coronary Artery Disease (CAD), CVA/TIA General Exam - General Exam Comments Initial Comments: Is a well-developed well-nourished awake alert oriented times female he has a [place] Coma Scale of 15 currently Limitations: no limitations General appearance: alert, in no apparent distress Head exam: Present: normocephalic, other (Abrasion seen to his nose as well as his right upper forehead no step-off or crepitation Shukri.) Eye exam: Present: normal appearance, PERRL, EOMI. Absent: scleral icterus, conjunctival injection, periorbital swelling ENT exam: Present: normal exam, mucous membranes moist Neck exam: Present: normal inspection. Absent: tenderness, meningismus, lymphadenopathy Respiratory exam: Present: normal lung sounds bilaterally. Absent: respiratory distress, wheezes, rales, rhonchi, stridor Cardiovascular Exam: Present: regular rate, normal rhythm, normal heart sounds. Absent: systolic murmur, diastolic murmur, rubs, gallop, clicks GI/Abdominal exam: Present: soft, normal bowel sounds. Absent: distended, tenderness, guarding, rebound, rigid Extremities exam: Present: normal inspection, full ROM, normal capillary refill. Absent: tenderness, pedal edema, joint swelling, calf tenderness Back exam: Present: normal inspection Neurological exam: Present: alert, oriented X3, CN II-XII intact Psychiatric exam: Present: normal affect, normal mood Skin exam: Present: warm, dry, normal color. Absent: intact, rash Course Vital Signs 01/15/18 01/15/18 01/15/18 22:53 23:30 23:32 Temperature 97 F L Pulse Rate 62 60 Pulse Rate [ 57 L Enterprise Resource Analyst ] Respiratory 18 18 Rate Blood Pressure 99/57 108/61 O2 Sat by Pulse 99 98 Oximetry - Reevaluation(s) Reevaluation #1: 01/16/18 00:17 Reevaluation patient reveals in the awake and alert. Family members were present I did discuss findings with THE family member. EKG Findings - EKG Results: EKG: interpreted by GABRIELLE, sinus rhythm (Sinus bradycardia rate of 53 WI interval 178 QRS duration 110 daily since QTC of 460/[address]-T wave changes) Medical Decision Making - Medical Decision Making Patient remains awake and alert I did discuss findings with Dr. Perez the patient be admitted for further monitoring today. - Lab Data Result diagrams: 01/15/18 23:12 01/15/18 23:12 Lab Results 01/15/18 01/15/18 01/15/18 Range/Units 23:12 23:12 23:12 WBC 10.6 (3.8-10.6) k/uL RBC 4.70 (4.30-5.90) m/uL Hgb 14.8 (13.0-17.5) gm/dL Hct 42.7 (39.0-53.0) % MCV 90.9 (80.0-100.0) fL MCH 31.6 (25.0-35.0) pg MCHC 34.8 (31.0-37.0) g/dL RDW 13.2 (11.5-15.5) % Plt Count 299 (150-450) k/uL Neutrophils % 60 % Lymphocytes % 31 % Monocytes % 4 % Eosinophils % 2 % Basophils % 1 % Neutrophils # 6.4 (1.3-7.7) k/uL Lymphocytes # 3.3 (1.0-4.8) k/uL Monocytes # 0.5 (0-1.0) k/uL Eosinophils # 0.2 (0-0.7) k/uL Basophils # 0.1 (0-0.2) k/uL PT (9.0-12.0) sec INR (<1.2) APTT (22.0-30.0) sec Sodium 139 (137-145) mmol/L Potassium 4.6 (3.5-5.1) mmol/L Chloride 101 (98-107) mmol/L Carbon Dioxide 26 (22-30) mmol/L Anion Gap 12 mmol/L BUN 22 H (9-20) mg/dL Creatinine 1.16 (0.66-1.25) mg/dL Est GFR (CKD-EPI)AfAm 79 (>60 ml/min/1.73 sqM) Est GFR (CKD-EPI)NonAf 69 (>60 ml/min/1.73 sqM) Glucose 127 H (74-99) mg/dL POC Glucose (mg/dL) (75-99) mg/dL POC Glu Process Safety Engineering Technologist ID Calcium 9.5 (8.4-10.2) mg/dL Magnesium 2.1 (1.6-2.3) mg/dL Total Bilirubin 0.3 (0.2-1.3) mg/dL AST 17 (17-59) U/L ALT 25 (21-72) U/L Alkaline Phosphatase 67 (38-126) U/L Total Creatine Kinase 69 (55-170) U/L CK-MB (CK-2) 1.1 (0.0-2.4) ng/mL CK-MB (CK-2) Rel Index 1.6 Troponin I <0.012 (0.000-0.034) ng/mL Total Protein 6.7 (6.3-8.2) g/dL Albumin 4.2 (3.5-5.0) g/dL TSH 5.960 H (0.465-4.680) mIU/L Urine Color Urine Appearance (Clear) Urine pH (5.0-8.0) Ur Specific [place] (1.001-1.035) Urine Protein (Negative) Urine Glucose (UA) (Negative) Urine Ketones (Negative) Urine Blood (Negative) Urine Nitrite (Negative) Urine Bilirubin (Negative) Urine Urobilinogen (<2.0) mg/dL Ur Leukocyte Esterase (Negative) 01/15/18 01/15/18 01/16/18 Range/Units 23:12 23:12 00:09 WBC (3.8-10.6) k/uL RBC (4.30-5.90) m/uL Hgb (13.0-17.5) gm/dL Hct (39.0-53.0) % MCV (80.0-100.0) fL MCH (25.0-35.0) pg MCHC (31.0-37.0) g/dL RDW (11.5-15.5) % Plt Count (150-450) k/uL Neutrophils % % Lymphocytes % % Monocytes % % Eosinophils % % Basophils % % Neutrophils # (1.3-7.7) k/uL Lymphocytes # (1.0-4.8) k/uL Monocytes # (0-1.0) k/uL Eosinophils # (0-0.7) k/uL Basophils # (0-0.2) k/uL PT 10.0 (9.0-12.0) sec INR 1.0 (<1.2) APTT 22.1 (22.0-30.0) sec Sodium (137-145) mmol/L Potassium (3.5-5.1) mmol/L Chloride (98-107) mmol/L Carbon Dioxide (22-30) mmol/L Anion Gap mmol/L BUN (9-20) mg/dL Creatinine (0.66-1.25) mg/dL Est GFR (CKD-EPI)AfAm (>60 ml/min/1.73 sqM) Est GFR (CKD-EPI)NonAf (>60 ml/min/1.73 sqM) Glucose (74-99) mg/dL POC Glucose (mg/dL) 125 H (75-99) mg/dL POC Glu Process Safety Engineering Technologist ID Guero Garcia Calcium (8.4-10.2) mg/dL Magnesium (1.6-2.3) mg/dL Total Bilirubin (0.2-1.3) mg/dL AST (17-59) U/L ALT (21-72) U/L Alkaline Phosphatase (38-126) U/L Total Creatine Kinase (55-170) U/L CK-MB (CK-2) (0.0-2.4) ng/mL CK-MB (CK-2) Rel Index Troponin I (0.000-0.034) ng/mL Total Protein (6.3-8.2) g/dL Albumin (3.5-5.0) g/dL TSH (0.465-4.680) mIU/L Urine Color Yellow Urine Appearance Clear (Clear) Urine pH 5.5 (5.0-8.0) Ur Specific [place] 1.016 (1.001-1.035) Urine Protein Trace H (Negative) Urine Glucose (UA) Negative (Negative) Urine Ketones Negative (Negative) Urine Blood Negative (Negative) Urine Nitrite Negative (Negative) Urine Bilirubin Negative (Negative) Urine Urobilinogen <2.0 (<2.0) mg/dL Ur Leukocyte Esterase Negative (Negative) - Radiology Data Radiology results: report reviewed (I did review the imaging and report no acute findings.), image reviewed Disposition Clinical Impression: Syncope, Bradycardia, Facial abrasion Disposition: ADMITTED IP TO THIS [facility] Condition: Stable Referrals: Angelo Perez MD [Primary Care Provider] - 1-2 days
[2018-01-15 23:13] LABS: Glucose,Whole Blood 125 mg/dL (75-99)
[2018-01-15 23:23] LABS: Basophils # (A) 0.1 k/uL (0-0.2); Basophils % (A) 1 %; Eosinophils # (A) 0.2 k/uL (0-0.7); Eosinophils % (A) 2 %; HCT 42.7 % (39.0-53.0); HGB 14.8 gm/dL (13.0-17.5); Lymphocytes # (A) 3.3 k/uL (1.0-4.8); Lymphocytes % (A) 31 %; MCH 31.6 pg (25.0-35.0); MCHC 34.8 g/dL (31.0-37.0); MCV 90.9 fL (80.0-100.0); Mean Platelet Volume 6.9; Monocytes # (A) 0.5 k/uL (0-1.0); Monocytes % (A) 4 %; Neutrophils # (A) 6.4 k/uL (1.3-7.7); Neutrophils % (A) 60 %; Platelet Count 299 k/uL (150-450); RDW 13.2 % (11.5-15.5); WBC 10.6 k/uL (3.8-10.6)
[2018-01-15 23:32] LABS: Albumin 4.2 g/dL (3.5-5.0); Calcium 9.5 mg/dL (8.4-10.2); Magnesium 2.1 mg/dL (1.6-2.3); Potassium 4.6 mmol/L (3.5-5.1); Total Bilirubin 0.3 mg/dL (0.2-1.3); Total Protein 6.7 g/dL (6.3-8.2)
[2018-01-15 23:33] LABS: Partial Thromboplastin Time 22.1 sec (22.0-30.0)
--- NOTE | 2018-01-15 23:36 | CT ---
EXAMINATION TYPE: CT brain kodi nielson DATE OF EXAM: 01/15/2018 COMPARISON: 12/04/2017 HISTORY: Prior on synapse, syncope, right frontal abrasion neck pain. Headache. CT DLP: head-1141.60 body-368.70 mGycm Automated exposure control for dose reduction was used. TECHNIQUE: CT scan of the head and cervical spine are performed without contrast. FINDINGS: Ventricles have normal size. There is no mass effect nor midline shift. There is no sign of intracranial hemorrhage. The calvarium appears intact. There is moderate spurring throughout the cervical spine involving the endplates. There is no megan sandy fracture. Vertebra have normal alignment. There is mild multilevel hypertrophic facet arthropath y. The skull base is intact. There is some pleural and pulmonary scarring at the lung apices. IMPRESSION: Negative CT scan of the brain. No evidence of traumatic injury. No change. Spondylotic changes in the cervical spine. No fracture. No change.
--- NOTE | 2018-01-15 23:38 | XR ---
EXAMINATION TYPE: XR chest 2V DATE OF EXAM: 01/15/2018 COMPARISON: NONE HISTORY: Syncope TECHNIQUE: Frontal and lateral views of the chest are obtained. FINDINGS: Heart and mediastinum are normal. Lungs are clear. Diaphragm is normal. Bony thorax is int act. There are chest leads. IMPRESSION: Normal chest. No change.
[2018-01-15 23:43] LABS: Creatine Kinase 69 U/L (55-170)
[2018-01-15 23:56] LABS: Creatine Kinase MB 1.1 ng/mL (0.0-2.4); Troponin I <0.012 ng/mL (0.000-0.034)
[2018-01-16 00:17] LABS: Appearance,Urine Clear (Clear); Bilirubin,Urine Negative (Negative); Blood,Urine Negative (Negative); Color,Urine Yellow; Glucose,Urine (UA) Negative (Negative); Ketones,Urine Negative (Negative); Leukocyte Esterase,Urine Negative (Negative); Nitrite,Urine Negative (Negative); PH, Urine 5.5 (5.0-8.0); Protein,Urine Trace (Negative); Specific Gravity,Urine 1.016 (1.001-1.035); Urobilinogen,Urine <2.0 mg/dL (<2.0)
[2018-01-16] MEDS ORDERED: NALOXONE 0.4 MG/ML 1 ML VIAL IV PRN (00:27)
[2018-01-16 00:30] LABS: T4, Free (Free Thyroxine) 1.18 ng/dL (0.78-2.19)
[2018-01-16] MEDS: LEVOTHYROXINE 75 MCG TAB PO SCH ×2 (07:23→09:17)
[2018-01-16] MEDS: SODIUM CHLORIDE 0.9% 1,000 ML IV SCH (07:23)
[2018-01-16] MEDS: METOPROLOL TARTRATE 25 MG TAB PO SCH ×2 (09:16→20:21)
[2018-01-16] MEDS: VENLAFAXINE HCL ER 75 MG CAP PO SCH (09:16)
[2018-01-16] MEDS: LOSARTAN 50 MG TAB PO SCH (09:16)
[2018-01-16] MEDS: CHOLECALCIFEROL 1,000 UNIT TAB PO SCH (09:16)
[2018-01-16] MEDS: ASPIRIN 81 MG PO SCH ×2 (09:17→20:21)
[2018-01-16] MEDS ORDERED: ACETAMINOPHEN TAB 325 MG TAB PO PRN (14:44)
--- NOTE | 2018-01-16 18:17 | HP ---
HISTORY AND PHYSICAL CHIEF COMPLAINT: Syncopal episode and probable seizure. HISTORY OF PRESENT ILLNESS: This is another admission for this 62-year-old who has had a history of seizures. He also has had mental issues. He presented to the emergency room after he had had a blackout and fell and struck his right forehead and nose, where he had abrasions. He does not remember anything about the event and was not incontinent of stool or urine. REVIEW OF SYSTEMS: He has no focal neurologic problems. He has a slight headache. He has had no change in vision or hearing. He has had no cough, hemoptysis, chest pain, palpitations, abdominal pain, melena, hematochezia, urinary complaints, etc. Past medical history, family history, and personal and social histories are remarkable in that he is on: 1. Vitamin D3. 2. Effexor 225 mg once a day. 3. Ecotrin 81 mg a day. 4. Metoprolol 25 mg b.i.d. 5. Losartan 50 mg daily. 6. Montelukast 10 mg once a day. 7. Quetiapine 50 mg at bedtime. The remainder of his history is unremarkable, as are his laboratory studies. PHYSICAL EXAMINATION: Blood pressure is 99/57 with a pulse of 62, respirations of 18, and he is afebrile. In general he appeared to be slender and in no acute distress. Skin color was normal. Skin was warm and dry. He had an abrasion over the bridge of the nose and on the right samaritan. Pupils were round and reactive and gaze conjugate. Ears were clear. Nose, mouth and throat were normal. Neck veins were not distended. Carotids were normal. The chest was clear to auscultation and percussion. Cardiac exam demonstrated sinus tachycardia with no murmurs or extra sounds. The abdomen was flat, soft, nontender, without visceromegaly or masses. Bowel sounds were present. Extremities were normal. Neurologically he was intact. IMPRESSION: 1. Syncopal episode. 2. Probable grand mal seizure. 3. History of depression. 4. History of asthma. 5. Current smoker. PLAN: 1. Bed rest. 2. IV fluids. 3. Frequent monitoring of his neurologic status and vital signs. 4. Seizure precautions. 5. Consult with Neurology. MMODL / IJN: [id number] /
[2018-01-16] MEDS ORDERED: LACOSAMIDE IV 100 MG in SODIUM CHLORIDE 0.9% 50 ML IVPB STA (19:20)
[2018-01-16] MEDS ORDERED: QUEtiapine 50 MG TAB PO SCH (21:00)
[2018-01-16] MEDS ORDERED: MONTELUKAST 10 MG TAB PO SCH (21:00)
[2018-01-16] MEDS: LACOSAMIDE 50 MG TABLET PO SCH (21:58)
[2018-01-17 05:49] VITALS: RESP 16
[2018-01-17] MEDS: SODIUM CHLORIDE 0.9% 1,000 ML IV SCH (08:37)
[2018-01-17] MEDS: LACOSAMIDE 50 MG TABLET PO SCH (09:20)
[2018-01-17] MEDS: METOPROLOL TARTRATE 25 MG TAB PO SCH (09:20)
[2018-01-17] MEDS: CHOLECALCIFEROL 1,000 UNIT TAB PO SCH (09:20)
[2018-01-17] MEDS: VENLAFAXINE HCL ER 75 MG CAP PO SCH (09:20)
[2018-01-17] MEDS: LOSARTAN 50 MG TAB PO SCH (09:25)
--- NOTE | 2018-01-17 09:33 | CONS ---
CONSULTATION DATE OF CONSULTATION: 01/16/2018 CHIEF COMPLAINT: Seizure. HISTORY OF PRESENT ILLNESS: The patient is a 62-year-old male who is being evaluated today on by the neurology service per the request of Dr. Perez. The patient was brought into [facility] Emergency Room after he had a seizure at home. The patient remembers being in his bedroom and the next thing he remembers is gaining some consciousness in the ambulance on his way to the emergency room. According to the patient, his heard a fall and when she came to the bedroom, she found him on the floor and seizure-like activity was described. The patient did not have any sphincter incontinence but he did bite his tongue. The patient does have a history of seizures and is on Keppra 1500 mg twice daily at home. He states that his seizures have not been well controlled over the past few months. He also reports a history of bipolar disorder and is on multiple psychiatric medications for this. He did injure his right frontal temporal region of the head and does have a superficial laceration there. A CT scan of the brain was done, which was normal. His CBC, INR, and urinalysis were normal. His comprehensive metabolic profile showed slightly elevated BUN at 22 and mild hyperglycemia at 127. His TSH was slightly elevated at 5.96 but his T4 level was normal. At the time of my evaluation, he is lying in his bed and appears to be in no acute distress. Since his arrival to the hospital, he has been having some bradycardia and he continues to be on a monitor. PAST MEDICAL HISTORY: Seizure disorder, heart failure, gastroesophageal reflux disease, chronic obstructive pulmonary disease, hypertension, hypothyroidism, hiatal hernia, diverticulosis, bipolar disorder, schizophrenia, depression, anxiety disorder, history of orthopedic surgeries, hernia repair. SOCIAL HISTORY: The patient is a current every day smoker. He occasionally drinks alcohol. He denies any IV drug use. He does smoke marijuana. FAMILY HISTORY: Cancer, stroke, heart disease. HOME MEDICATIONS: Reviewed in the chart. ALLERGIES: No known drug allergies. REVIEW OF SYSTEMS: CONSTITUTIONAL: Negative. EYES: Negative. ENT: Negative. CARDIOVASCULAR: As mentioned above. RESPIRATORY: Positive for occasional shortness of breath. NEUROLOGICAL: As mentioned above. He denies any lateralizing numbness or weakness. GASTROINTESTINAL: Positive for occasional heartburn. GENITOURINARY: Negative. PSYCHIATRIC: As mentioned above. MUSCULOSKELETAL: Positive for occasional joint pain. DERMATOLOGICAL: Negative. ENDOCRINE: Positive for hypothyroidism. PHYSICAL EXAM: Vital signs show a temperature of 97.7, pulse 63, respiration 17, blood pressure 133/75. GENERAL APPEARANCE: The patient is a well-developed male who appears to be in no acute distress. HEENT: The patient does have a superficial laceration in the right frontal temporal region, no facial asymmetry is seen. NECK: Supple with no masses felt. CARDIOVASCULAR: Regular rate and rhythm. ABDOMEN: Nontender, nondistended. Extremities showed no edema or clubbing. NEUROLOGICAL EXAM: The patient is alert, aware and oriented x3. Speech and language are normal. Strength is full in all 4 extremities. Sensory exam was normal to light touch in all 4 extremities. No tremors or seizure-like activity is seen. No facial asymmetry is noticed on cranial nerve testing. IMPRESSION: 1. Seizure disorder, uncontrolled. 2. Closed head injury. 3. Bipolar disorder. 4. Schizophrenia. 5. Depression. RECOMMENDATION: The patient does appear to have had a breakthrough seizure. He is currently on Keppra 1500 mg b.i.d. Given his multiple psychiatric disorders, I do recommend that Keppra be switched to another antiepileptic medication given its significant affect on the patient's psychiatric disorders. Also, he does report that his seizures have not been well controlled over the past few months. I had a lengthy discussion with him regarding various medication options. I will switch his Keppra to Vimpat 100 mg b.i.d. An EEG has been ordered. Continue neuro checks and seizure precautions. As for his head injury, I did review his CT scan of the brain which showed no acute findings. Continue the rest of your current workup and management. I will continue to follow with you. Further recommendations to follow. Thank you Dr. Perez for allowing me to participate in the care of your patient. If you have any questions, please feel free to contact me. DWIGHTL / IJN: [id number] / VANCE
[2018-01-17 11:33] VITALS: BP 151/84; PULSE 48; TEMP 98.3
--- NOTE | 2018-01-17 18:21 | EEG ---
ELECTROENCEPHALOGRAM REPORT DATE OF SERVICE: 01/17/2018. REASON FOR TESTING: Seizures. CURRENT ANTIEPILEPTIC MEDICATIONS: Vimpat. DESCRIPTION OF THE PROCEDURE: This EEG was performed using a 21 channel digital electroencephalograph, following international 10-20 system. DESCRIPTION OF THE RECORDING: From the beginning of the tracing, and with patient's eyes closed, the background rhythm was mostly consisting of 8-9 Hz alpha frequency in the posterior occipital leads. No obvious asymmetry is seen. Occasional movement artifacts and frequent blink artifacts are seen. Rare lead artifacts are seen. Hyperventilation was not performed. Photic stimulation was performed with a minimal driving response seen. No pathological waves were elicited. The patient remains awake throughout the tracing. No epileptiform discharges were seen. His EKG lead showed a regular rate and rhythm. INTERPRETATION: This awake EEG can be considered within normal limits. There was no asymmetry seen. No epileptiform discharges were noticed. The absence of epileptiform discharges does not rule out the diagnosis of epilepsy, therefore clinical correlation is recommended. MMLUISA / DEBN: [id number] /
--- NOTE | 2018-01-17 21:12 | DS ---
DISCHARGE SUMMARY CHIEF COMPLAINT: Seizure. HISTORY OF PRESENT ILLNESS AND PHYSICAL EXAM: Details of this man's history and physical can be found in the initial workup. LABORATORY STUDIES: While he was in a hospital he had laboratory studies, details of which can be found in the laboratory section of his chart. COURSE IN HOSPITAL: After admission he was placed on bedrest, started on intravenous fluids and placed on seizure precautions. He had no further trouble. He was seen by Neurology, who recommended changing him to Vimpat 100 mg b.i.d. and stopping the Keppra. This was arranged. The patient was doing well it was felt that he could go home in the afternoon. He will follow up in the office in a day or two. FINAL DIAGNOSIS: 1. Grand mal seizure disorder. 2. Uncontrolled seizure disorder. 3. Bipolar depression. OPERATIONS: None. CONSULTATION: Neurology. He is improved. HARIKA / ALISSA: [id number] /
--- NOTE | 2018-01-18 05:31 | P.PN ---
Subjective Progress Note Date: 01/17/18 Principal diagnosis: Seizure Interval Update: (01/17/18) Neurology is following on a 62 year old male who was brought to the ED after the patient had a seizure at home Patient regained consciousness in the ambulance while in route. Patient did not have bowel or bladder incontinence. Patient does have a known seizure history. Patient has had difficulty with seizure control on his current medication regimen. Patient has a history of multiple psychiatric disorders including bipolar. During the incident the patient had a fall and hit his head on an unknown object and has a superficial laceration. CT of the brain in the Ed was unremarkable for any acute process. CBC, INR and UA were normal. CMP noted only elevated BUN and mild hyperglycemia. TSH was elevated but T4 was normal. On contact, the patient was supine in bed resting in no acute distress. The patient was AOx3, cooperative. Patient stated that he had no new seizure activity since his medication was changed to Vimpat 100 mg BID. Patient also states he has decreased agitation and anxiety since the change. Patient has no new adverse effects on questioning. EEG was taken and not read. Patient is still under 24 hours on his new medication regimen. Objective - Vital Signs Vital signs: Vital Signs Temp 98.3 F 01/17/18 11:32 Pulse 48 L 01/17/18 11:32 Resp 16 01/17/18 11:32 BP 151/84 01/17/18 11:32 Pulse Ox 98 01/17/18 11:32 Intake & Output 01/17/18 01/17/18 01/18/18 06:59 18:59 06:59 Intake Total 240 Balance 240 Intake: Oral 240 Other: Voiding Method Toilet Toilet # Voids 3 - Exam General appearance: Alert & oriented x4, no apparent distress. Head: Atraumatic, normocephalic, normal inspection Eyes: Well appearance, PERRLA, EOMI. Absent scleral icterus, conjunctival injection, nystagmus, periorbital swelling. Ear, nose and throat: Normal exam, mucous membranes moist Neck: Normal inspection, absent tenderness, lymphadenopathy. Respiratory: No increased work of breathing Cardiovascular: Regular rate, rhythm GI/abdominal: Normal bowel sounds, nondistended, no tenderness, no guarding, no rebound, no rigidity. Extremities: All range of motion, normal capillary refill, no tenderness, pedal edema joint swelling, calf tenderness integumentary: Right frontal superficial laceration which is new and related to the patients seizure incident. Neurological: cranial nerves II through XII intact no lateralizing weakness no seizure activity noted on physical exam no pronator drift and no nystagmus. strength is equal in all 4 Sensation: normal in all 4 extremit Psychological: Mood and affect appropriate for setting. - Labs CBC & Chem 7: 01/15/18 23:12 01/15/18 23:12 Assessment and Plan (1) Seizure Status: Acute Code(s): R56.9 - UNSPECIFIED CONVULSIONS SNOMED Code(s): 03610178 (2) Bipolar disorder Status: Acute Code(s): F31.9 - BIPOLAR DISORDER, UNSPECIFIED SNOMED Code(s) : 85173518 Plan: 1. Seizure 2. Bipolar 3. Altered mental status Patient had difficulty with seizure medication on his AED regimen of Keppra. Patient was switched to Vimpat 100 mg, BID and the patient has responded well. Patient's EEG has been taken but not read. Patient is still under 24 hours with new medication. Although the patient has bipolar and other psychiatric comorbidities, he may still be a potentially good candidate for vagal nerve stimulation. We can discuss this further at his outpatient follow up. Status: Neurology will continue to follow until 01/18/18. If the patient remains seizure free the patient will likely be cleared for discharge at that time. I have discussed the plan of care with the physician prior to implementation and he agrees with the plan as implemented.
== END 2018-01-17 14:56 | disposition home or self-care (01) ==
LOC: EC 22:49 → 3OBS 01-16 00:27
PROVIDERS: ADMIT Family Medicine; ATTEND Family Medicine
DX: G40.409 Other generalized epilepsy and epileptic syndromes, not intractable, without status epilepticus (principal); F31.9 Bipolar disorder, unspecified; F17.200 Nicotine dependence, unspecified, uncomplicated; F20.9 Schizophrenia, unspecified; F41.9 Anxiety disorder, unspecified; S00.81XA Abrasion of other part of head, initial encounter; S09.90XA Unspecified injury of head, initial encounter; S00.31XA Abrasion of nose, initial encounter; W19.XXXA Unspecified fall, initial encounter; R94.6 Abnormal results of thyroid function studies; R73.9 Hyperglycemia, unspecified; R79.89 Other specified abnormal findings of blood chemistry; R41.82 Altered mental status, unspecified; R55 Syncope and collapse; R00.1 Bradycardia, unspecified; Y92.003 Bedroom of unspecified non-institutional (private) residence as the place of occurrence of the external cause; I50.9 Heart failure, unspecified; I11.0 Hypertensive heart disease with heart failure; J44.9 Chronic obstructive pulmonary disease, unspecified; E03.9 Hypothyroidism, unspecified; R41.3 Other amnesia; Z79.82 Long term (current) use of aspirin; Z79.899 Other long term (current) drug therapy; Z82.49 Family history of ischemic heart disease and other diseases of the circulatory system; Z82.3 Family history of stroke
CPT/HCPCS: 96361 ×18; 99285 ×2; 96365; 36415; 95819; 93005; 84439; 80053; 84443; 82550; 82553; 83735; 84484; 85025; 85610; 85730; 81003; 71046; 72125; 70450; G0378 ×2; C9254

== ENCOUNTER 2018-02-20 10:57 | Emergency (ER) | payer MEDICARE ==
[2018-02-20] MEDS ORDERED: QUEtiapine 200 MG TAB PO STA (11:01)
[2018-02-20] MEDS ORDERED: VENLAFAXINE HCL 50 MG TAB PO STA (11:01)
[2018-02-20 11:13] VITALS: TEMP 98
[2018-02-20 12:03] LABS: Amphetamine Screen,Urine Not Detected (NotDetected); Barbiturate Screen,Urine Not Detected (NotDetected); Benzodiazepines Screen,Urine Not Detected (NotDetected); Cocaine Screen,Urine Not Detected (NotDetected); Methadone Screen, Urine Not Detected (NotDetected); Opiate Screen,Urine Not Detected (NotDetected); Oxycodone Screen, Urine Not Detected (NotDetected); Phencyclidine Screen,Urine Not Detected (NotDetected); Tricyclic Antidepressant,Urine Not Detected (NotDetected); Urn Cannabinoid Scrn Detected (NotDetected)
--- NOTE | 2018-02-20 12:41 | ED ---
Psych HPI - General Chief Complaint: Psychiatric Symptoms Stated Complaint: Mental Health Time Seen by Provider: 02/20/18 11:00 Source: EMS Mode of arrival: EMS - History of Present Illness Initial Comments: Patient presents with psychiatric disorder. He denies homicidal or suicidal ideation. He normally takes Effexor and Seroquel. He has been out of his medications for a few days. He had an emotional breakdown today. He denies any fever, chills, chest pain or shortness of breath. He has no weakness or trouble walking. He has no nausea or vomiting. He has no headache. - Related Data Home Medications Medication Instructions Recorded Confirmed Cholecalciferol [Vitamin D3] 5,000 unit PO DAILY 02/03/17 02/20/18 Aspirin EC [Ecotrin Low Dose] 81 mg PO DAILY 06/28/17 02/20/18 Metoprolol Tartrate [Lopressor] 25 mg PO BID 08/08/17 02/20/18 Losartan Potassium 50 mg PO DAILY 12/30/17 02/20/18 Montelukast [Singulair] 10 mg PO HS 12/30/17 02/20/18 QUEtiapine [SEROquel] 50 mg PO HS 01/15/18 02/20/18 Levothyroxine Sodium [Synthroid] 75 mcg PO DAILY 02/20/18 02/20/18 Melatonin 10 mg PO HS 02/20/18 02/20/18 Venlafaxine HCl [Effexor XR] 225 mg PO DAILY 02/20/18 02/20/18 levETIRAcetam [Keppra] 1,500 mg PO BID 02/20/18 02/20/18 Previous Rx's Medication Instructions Recorded QUEtiapine [SEROquel] 50 mg PO HS #15 tab 02/20/18 Venlafaxine HCl [Effexor] 75 mg PO DAILY #15 tab 02/20/18 Allergies Allergy/AdvReac Type Severity Reaction Status Date / Time No Known Allergies Allergy Verified 02/20/18 12:27 Review of Systems ROS Statement: Those systems with pertinent positive or pertinent negative responses have been documented in the HPI. ROS Other: All systems not noted in ROS Statement are negative. Past Medical History Past Medical History: Chest Pain / Angina, Heart Failure, COPD, GERD/Reflux, Hypertension, Seizure Disorder, Thyroid Disorder Additional Past Medical History / Comment(s): falls,bronchitis,Memory impairment , legally incapacitated, hypothyroid, small hiatal hernia, diverticulosis. History of Any Multi-Drug Resistant Organisms: None Reported Past Surgical History: Hernia Repair, Joint Replacement, Orthopedic Surgery Additional Past Surgical History / Comment(s): 08/2017 EGGD/colonoscopy, prior colonoscopy, umbilical hernia repair, L total knee, R partial knee replacement, R lower leg fracture with ORIF (hardware in place), ERCP, bilateral knee arthroscopies. Past Anesthesia/Blood Transfusion Reactions: No Reported Reaction Past Psychological History: Anxiety, Bipolar, Depression, Schizophrenia Smoking Status: Current every day smoker Past Alcohol Use History: Abuse Past Drug Use History: Cocaine, Heroin, Marijuana - Past Family History Father Family Medical History: Cancer, Coronary Artery Disease (CAD), Pneumonia Additional Family Medical History / Comment(s): Father had a pacemaker. He of pneumonia. Mother Family Medical History: Coronary Artery Disease (CAD), CVA/TIA General Exam Limitations: no limitations General appearance: alert, in no apparent distress Head exam: Present: atraumatic, normocephalic, normal inspection Eye exam: Present: normal appearance, PERRL, EOMI. Absent: scleral icterus, conjunctival injection, periorbital swelling ENT exam: Present: normal exam, mucous membranes moist Neck exam: Present: normal inspection. Absent: tenderness, meningismus, lymphadenopathy Respiratory exam: Present: normal lung sounds bilaterally. Absent: respiratory distress, wheezes, rales, rhonchi, stridor Cardiovascular Exam: Present: regular rate, normal rhythm, normal heart sounds. Absent: systolic murmur, diastolic murmur, rubs, gallop, clicks GI/Abdominal exam: Present: soft, normal bowel sounds. Absent: distended, tenderness, guarding, rebound, rigid Extremities exam: Present: normal inspection, full ROM, normal capillary refill. Absent: tenderness, pedal edema, joint swelling, calf tenderness Back exam: Present: normal inspection Neurological exam: Present: alert, oriented X3, CN II-XII intact Psychiatric exam: Present: normal affect, normal mood Skin exam: Present: warm, dry, intact, normal color. Absent: rash Course Vital Signs 02/20/18 10:58 Temperature 98.0 F Pulse Rate 66 Respiratory 20 Rate Blood Pressure 156/90 O2 Sat by Pulse 98 Oximetry Medical Decision Making - Medical Decision Making Patient presents with psychiatric disorder. There is no evidence of intoxication. He was about a by psychiatry. I gave him a dose of his effects or encircling the emergency department. His emotional symptoms have resolved. He is pleasant, alert and oriented 4. He is not a danger to himself or others. He is stable for discharge. - Lab Data Lab Results 02/20/18 Range/Units 11:35 Urine Opiates Screen Not Detected (NotDetected) Ur Oxycodone Screen Not Detected (NotDetected) Urine Methadone Screen Not Detected (NotDetected) Ur Propoxyphene Screen Not Detected (NotDetected) Ur Barbiturates Screen Not Detected (NotDetected) U Tricyclic Antidepress Not Detected (NotDetected) Ur Phencyclidine Scrn Not Detected (NotDetected) Ur Amphetamines Screen Not Detected (NotDetected) U Methamphetamines Scrn Not Detected (NotDetected) U Benzodiazepines Scrn Not Detected (NotDetected) Urine Cocaine Screen Not Detected (NotDetected) U Marijuana (THC) Screen Detected H (NotDetected) Disposition Clinical Impression: Acute anxiety Disposition: HOME SELF-CARE Condition: Good Instructions: Anxiety (ED) Prescriptions: QUEtiapine [SEROquel] 50 mg PO HS #15 tab Venlafaxine HCl [Effexor] 75 mg PO DAILY #15 tab Is patient prescribed a controlled substance at discharge?: No Referrals: Lucia Kc MD [Primary Care Provider] - 1-2 days
[2018-02-20 12:54] VITALS: BP 141/76; PULSE 80; RESP 18
== END 2018-02-20 12:54 | disposition home or self-care (01) ==
LOC: EC 10:57
DX: F41.9 Anxiety disorder, unspecified (principal); I11.0 Hypertensive heart disease with heart failure; I50.9 Heart failure, unspecified; J44.9 Chronic obstructive pulmonary disease, unspecified; K21.9 Gastro-esophageal reflux disease without esophagitis; G40.909 Epilepsy, unspecified, not intractable, without status epilepticus; E03.9 Hypothyroidism, unspecified; F31.9 Bipolar disorder, unspecified; F20.9 Schizophrenia, unspecified; F17.200 Nicotine dependence, unspecified, uncomplicated; Z79.82 Long term (current) use of aspirin; Z79.899 Other long term (current) drug therapy
CPT/HCPCS: 80306; 82075; 99285

== ENCOUNTER → 2018-02-20 | Outpatient (CLI) | payer MEDICARE ==
[2018-02-20 09:58] LABS: Cholesterol 151 mg/dL (<200); HDL Cholesterol 56 mg/dL (40-60); LDL Cholesterol,Calculated 80 mg/dL (0-99); Triglycerides 76 mg/dL (<150)
== END | disposition home or self-care (01) ==
LOC: LABWHC1 08:57
PROVIDERS: ATTEND Nurse Practitioner Adult Health
DX: E78.2 Mixed hyperlipidemia (principal)
CPT/HCPCS: 36415; 80061

== ENCOUNTER 2018-04-25 19:36 | Emergency (ER) | payer MEDICARE ==
[2018-04-25] MEDS ORDERED: LORazepam 2 MG/ML INJ IV STA (19:59)
--- NOTE | 2018-04-25 20:02 | ED ---
General Adult HPI - General Stated complaint: Seizure Time Seen by Provider: 04/25/18 19:47 Source: patient, RN notes reviewed Mode of arrival: EMS Limitations: altered mental status - History of Present Illness Initial comments: Patient is a pleasant 62-year-old male presenting to the emergency Department with reported seizure. Patient is from a care facility. Patient had reported seizure lasting approximately 3 minutes. Patient does have a history of previous seizures however does not frequently get them. Patient does admit to feeling confused at this time. Patient states he does feel confused similar to this following seizures. Patient denies any pain or injury. Patient is unclear whether or not he takes medication. Patient states he does not drink alcohol. Patient states he may have smoked marijuana at some point. - Related Data Home Medications Medication Instructions Recorded Confirmed Cholecalciferol [Vitamin D3] 5,000 unit PO DAILY 02/03/17 04/25/18 Aspirin EC [Ecotrin Low Dose] 81 mg PO DAILY 06/28/17 04/25/18 Metoprolol Tartrate [Lopressor] 25 mg PO BID 08/08/17 04/25/18 Losartan Potassium 50 mg PO DAILY 12/30/17 04/25/18 Montelukast [Singulair] 10 mg PO HS 12/30/17 04/25/18 QUEtiapine [SEROquel] 50 mg PO HS 01/15/18 04/25/18 Levothyroxine Sodium [Synthroid] 75 mcg PO DAILY 02/20/18 04/25/18 Venlafaxine HCl [Effexor XR] 225 mg PO DAILY 02/20/18 04/25/18 levETIRAcetam [Keppra] 1,500 mg PO BID 02/20/18 04/25/18 Allergies Allergy/AdvReac Type Severity Reaction Status Date / Time No Known Allergies Allergy Verified 04/25/18 20:11 Review of Systems ROS Statement: Those systems with pertinent positive or pertinent negative responses have been documented in the HPI. ROS Other: All systems not noted in ROS Statement are negative. Constitutional: Denies: fever Eyes: Denies: eye pain ENT: Denies: ear pain Respiratory: Denies: cough Cardiovascular: Denies: chest pain Endocrine: Denies: fatigue Gastrointestinal: Denies: abdominal pain Genitourinary: Denies: dysuria Musculoskeletal: Denies: back pain Skin: Denies: rash Neurological: Reports: confusion. Denies: headache Past Medical History Past Medical History: Chest Pain / Angina, Heart Failure, COPD, GERD/Reflux, Hypertension, Seizure Disorder, Thyroid Disorder Additional Past Medical History / Comment(s): falls,bronchitis,Memory impairment , legally incapacitated, hypothyroid, small hiatal hernia, diverticulosis. History of Any Multi-Drug Resistant Organisms: None Reported Past Surgical History: Hernia Repair, Joint Replacement, Orthopedic Surgery Additional Past Surgical History / Comment(s): 08/2017 EGGD/colonoscopy, prior colonoscopy, umbilical hernia repair, L total knee, R partial knee replacement, R lower leg fracture with ORIF (hardware in place), ERCP, bilateral knee arthroscopies. Past Anesthesia/Blood Transfusion Reactions: No Reported Reaction Past Alcohol Use History: Occasional Past Drug Use History: Marijuana - Past Family History Father Family Medical History: Cancer, Coronary Artery Disease (CAD), Pneumonia Additional Family Medical History / Comment(s): Father had a pacemaker. He of pneumonia. Mother Family Medical History: Coronary Artery Disease (CAD), CVA/TIA General Exam Limitations: altered mental status General appearance: alert, in no apparent distress Head exam: Present: atraumatic Eye exam: Present: normal appearance, PERRL, EOMI. Absent: nystagmus ENT exam: Present: normal oropharynx Neck exam: Present: normal inspection Respiratory exam: Present: normal lung sounds bilaterally Cardiovascular Exam: Present: regular rate, normal rhythm GI/Abdominal exam: Present: soft. Absent: tenderness Extremities exam: Present: normal inspection Neurological exam: Present: alert, altered, CN II-XII intact. Absent: motor sensory deficit Expanded Neurological exam: Present: protecting the airway Patient oriented to: Present: person. Absent: place, time Speech: Present: fluid speech Cranial nerves: EOM's Intact: Normal, Facial Sensation: Normal Motor strength exam: RUE: 5, LUE: 5, RLE: 5, LLE: 5 Eye Response: (4) open spontaneously Motor Response: (6) obeys commands Verbal Response: (4) confused conversation Psychiatric exam: Present: normal affect, normal mood Skin exam: Present: normal color Course Vital Signs 04/25/18 19:55 Temperature 97.1 F L Pulse Rate 100 Respiratory 21 Rate Blood Pressure 155/79 O2 Sat by Pulse 97 Oximetry EKG Findings - EKG Comments: EKG Findings:: Sinus rhythm at 96. OH 200. QRS 122. QT 402. QTC 507. Normal axis. Nonspecific intraventricular conduction delay. No acute ST change. Medical Decision Making - Medical Decision Making Patient reevaluated and resting comfortably in bed. Patient is alert and oriented 2. Group Insurance Special Agent is now present and states that is normal. Group Insurance Special Agent states he is acting normally at this time. Patient is requesting discharge home and cloth washer operator is comfortable with that. They're updated on results and need for follow-up. Group Insurance Special Agent states patient does have a well-known history of seizures. Patient used to have seizures monthly however last seizure was approximately 5 months ago. - Lab Data Result diagrams: 04/25/18 21:03 04/25/18 21:03 Lab Results 04/25/18 04/25/18 Range/Units 21:03 21:03 WBC 11.3 H (3.8-10.6) k/uL RBC 4.18 L (4.30-5.90) m/uL Hgb 13.5 (13.0-17.5) gm/dL Hct 38.6 L (39.0-53.0) % MCV 92.2 (80.0-100.0) fL MCH 32.4 (25.0-35.0) pg MCHC 35.1 (31.0-37.0) g/dL RDW 13.3 (11.5-15.5) % Plt Count 219 (150-450) k/uL Neutrophils % 80 % Lymphocytes % 13 % Monocytes % 5 % Eosinophils % 1 % Basophils % 0 % Neutrophils # 9.0 H (1.3-7.7) k/uL Lymphocytes # 1.4 (1.0-4.8) k/uL Monocytes # 0.6 (0-1.0) k/uL Eosinophils # 0.1 (0-0.7) k/uL Basophils # 0.0 (0-0.2) k/uL Sodium 134 L (137-145) mmol/L Potassium 4.2 (3.5-5.1) mmol/L Chloride 99 (98-107) mmol/L Carbon Dioxide 21 L (22-30) mmol/L Anion Gap 14 mmol/L BUN 9 (9-20) mg/dL Creatinine 0.80 (0.66-1.25) mg/dL Est GFR (CKD-EPI)AfAm >90 (>60 ml/min/1.73 sqM) Est GFR (CKD-EPI)NonAf >90 (>60 ml/min/1.73 sqM) Glucose 82 (74-99) mg/dL Calcium 8.9 (8.4-10.2) mg/dL Total Bilirubin 0.2 (0.2-1.3) mg/dL AST 30 (17-59) U/L ALT 34 (21-72) U/L Alkaline Phosphatase 67 (38-126) U/L Total Protein 6.1 L (6.3-8.2) g/dL Albumin 3.9 (3.5-5.0) g/dL Serum Alcohol <10 mg/dL - Radiology Data Radiology results: image reviewed (Computed tomography scan the brain shows no acute process) Disposition Clinical Impression: Generalized seizure Disposition: HOME SELF-CARE Condition: Stable Instructions: Recurrent Seizures in Adults (ED) Additional Instructions: Continue Keppra. Please follow-up with Dr. Kirkland in the next couple days for recheck. Have Dr. Kirkland check Keppra level. Return for seizures, change in mental status, worsening symptoms or other concerns. Is patient prescribed a controlled substance at d/c from ED?: No Referrals: James Kirkland MD [STAFF PHYSICIAN] - 1-2 days Елена Fulton MD [REFERRING] - 1-2 days Time of Disposition: 21:47
--- NOTE | 2018-04-25 20:46 | CT ---
EXAMINATION TYPE: CT brain wo con DATE OF EXAM: 04/25/2018 COMPARISON: 01/15/2018 HISTORY: Seizure today. Hx of seizures CT DLP: 1010.5 mGycm Automated exposure control for dose reduction was used. FINDINGS: The ventricles have normal size. There is no mass effect nor midline shift. There is no sign of intra cranial hemorrhage. The calvarium is intact. IMPRESSION: NEGATIVE CT SCAN OF THE BRAIN. NO CHANGE.
[2018-04-25 21:22] LABS: Basophils % (A) 0 %; Eosinophils # (A) 0.1 k/uL (0-0.7); Eosinophils % (A) 1 %; HCT 38.6 % (39.0-53.0); HGB 13.5 gm/dL (13.0-17.5); Lymphocytes # (A) 1.4 k/uL (1.0-4.8); Lymphocytes % (A) 13 %; MCH 32.4 pg (25.0-35.0); MCHC 35.1 g/dL (31.0-37.0); MCV 92.2 fL (80.0-100.0); Mean Platelet Volume 6.7; Monocytes # (A) 0.6 k/uL (0-1.0); Monocytes % (A) 5 %; Neutrophils % (A) 80 %; Platelet Count 219 k/uL (150-450); RBC 4.18 m/uL (4.30-5.90); RDW 13.3 % (11.5-15.5); WBC 11.3 k/uL (3.8-10.6)
[2018-04-25 21:26] LABS: ALT 34 U/L (21-72); AST 30 U/L (17-59); Albumin 3.9 g/dL (3.5-5.0); Alcohol <10 mg/dL; Alkaline Phosphatase 67 U/L (38-126); Anion Gap 14 mmol/L; Blood Urea Nitrogen 9 mg/dL (9-20); Calcium 8.9 mg/dL (8.4-10.2); Carbon Dioxide 21 mmol/L (22-30); Chloride 99 mmol/L (98-107); Glucose 82 mg/dL (74-99); Potassium 4.2 mmol/L (3.5-5.1); Sodium 134 mmol/L (137-145); Total Bilirubin 0.2 mg/dL (0.2-1.3); Total Protein 6.1 g/dL (6.3-8.2)
[2018-04-25 21:54] VITALS: BP 121/67; PULSE 78; RESP 18; TEMP 97.7
[2018-04-25 21:57] LABS: Appearance,Urine Clear (Clear); Bilirubin,Urine Negative (Negative); Blood,Urine Negative (Negative); Color,Urine Light Yellow; Glucose,Urine (UA) Negative (Negative); Ketones,Urine Negative (Negative); Leukocyte Esterase,Urine Negative (Negative); Nitrite,Urine Negative (Negative); PH, Urine 5.5 (5.0-8.0); Protein,Urine Negative (Negative); Specific Gravity,Urine 1.006 (1.001-1.035); Urobilinogen,Urine <2.0 mg/dL (<2.0)
[2018-04-25 22:07] LABS: Amphetamine Screen,Urine Not Detected (NotDetected); Barbiturate Screen,Urine Not Detected (NotDetected); Benzodiazepines Screen,Urine Not Detected (NotDetected); Cocaine Screen,Urine Not Detected (NotDetected); Methadone Screen, Urine Not Detected (NotDetected); Opiate Screen,Urine Not Detected (NotDetected); Oxycodone Screen, Urine Not Detected (NotDetected); Phencyclidine Screen,Urine Not Detected (NotDetected); Tricyclic Antidepressant,Urine Not Detected (NotDetected); Urn Cannabinoid Scrn Detected (NotDetected)
== END 2018-04-25 22:03 | disposition home or self-care (01) ==
LOC: EC 19:36
DX: G40.909 Epilepsy, unspecified, not intractable, without status epilepticus (principal); R41.0 Disorientation, unspecified; J44.9 Chronic obstructive pulmonary disease, unspecified; I11.0 Hypertensive heart disease with heart failure; I50.9 Heart failure, unspecified; E03.9 Hypothyroidism, unspecified; Z79.82 Long term (current) use of aspirin; Z79.899 Other long term (current) drug therapy; Z96.653 Presence of artificial knee joint, bilateral
CPT/HCPCS: 36415; 93005; 80053; 80177; 85025; 81003; 80306; 80320; 70450; 99285; 96374; J2060

== ENCOUNTER 2018-08-29 20:14 | Inpatient (IN) | payer MEDICARE ==
[2018-08-29] MEDS ORDERED: LORazepam 2 MG/ML INJ IV STA ×2 (20:15→20:36)
[2018-08-29] MEDS ORDERED: DIAZEPAM 5 MG/ML 2 ML INJ IVP STA (20:20)
--- NOTE | 2018-08-29 20:39 | ED ---
General Adult HPI - General Chief complaint: Seizure Stated complaint: seizure Source: EMS Mode of arrival: EMS Limitations: altered mental status - History of Present Illness Initial comments: Dictation was produced using Obvious dictation software. please excuse any grammatical, word or spelling errors. Chief Complaint: 62-year-old male with past medical history of seizure presents with seizure-like activity. History of Present Illness: Patient is 62-year-old male past medical history of EtOH and seizure disorder takes Keppra. Patient was at someone's house when EMS was called. They state there was witnessed tonic-clonic type activity. Blood sugar was checked patient had stable vital signs. Patient unable to provide HPI this time. Review patient does have psychiatric disorder. He does take Seroquel. - Related Data Home Medications Medication Instructions Recorded Confirmed Cholecalciferol [Vitamin D3] 5,000 unit PO DAILY 02/03/17 08/29/18 Aspirin EC [Ecotrin Low Dose] 81 mg PO HS 06/28/17 08/29/18 Metoprolol Tartrate [Lopressor] 25 mg PO BID 08/08/17 08/29/18 Losartan Potassium 50 mg PO DAILY 12/30/17 08/29/18 Montelukast [Singulair] 10 mg PO HS 12/30/17 08/29/18 QUEtiapine [SEROquel] 50 mg PO HS 01/15/18 08/29/18 Levothyroxine Sodium [Synthroid] 75 mcg PO DAILY 02/20/18 08/29/18 Venlafaxine HCl [Effexor XR] 225 mg PO DAILY 02/20/18 08/29/18 levETIRAcetam [Keppra] 1,500 mg PO BID 02/20/18 08/29/18 Allergies Allergy/AdvReac Type Severity Reaction Status Date / Time No Known Allergies Allergy Verified 08/29/18 21:27 Review of Systems ROS Statement: Those systems with pertinent positive or pertinent negative responses have been documented in the HPI. ROS Other: All systems not noted in ROS Statement are negative. Past Medical History Past Medical History: Chest Pain / Angina, Heart Failure, COPD, GERD/Reflux, Hypertension, Seizure Disorder, Thyroid Disorder Additional Past Medical History / Comment(s): falls,bronchitis,Memory impairment , legally incapacitated, hypothyroid, small hiatal hernia, diverticulosis. History of Any Multi-Drug Resistant Organisms: None Reported Past Surgical History: Hernia Repair, Joint Replacement, Orthopedic Surgery Additional Past Surgical History / Comment(s): 08/2017 EGGD/colonoscopy, prior colonoscopy, umbilical hernia repair, L total knee, R partial knee replacement, R lower leg fracture with ORIF (hardware in place), ERCP, bilateral knee arthroscopies. Past Anesthesia/Blood Transfusion Reactions: No Reported Reaction Past Psychological History: Anxiety, Bipolar, Depression, Schizophrenia Smoking Status: Current every day smoker Past Alcohol Use History: Occasional Past Drug Use History: Marijuana - Past Family History Father Family Medical History: Cancer, Coronary Artery Disease (CAD), Pneumonia Additional Family Medical History / Comment(s): Father had a pacemaker. He of pneumonia. Mother Family Medical History: Coronary Artery Disease (CAD), CVA/TIA General Exam - General Exam Comments Initial Comments: PHYSICAL EXAM: General Impression: Withdraws to pain, localizes noxious stimuli, jerking rhythmic movements of the bilateral lower extremities, noncyanotic HEENT: Normocephalic atraumatic, extra-ocular movements intact, pupils equal and reactive to light bilaterally, mucous membranes moist. Cardiovascular: Heart regular rate and rhythm, S1&S2 audible, no murmurs, rubs or gallops Chest: Lungs clear to auscultation bilaterally, no rhonchi, no wheeze, no rales Abdomen: Bowel sounds present, abdomen soft, non-tender, non-distended, no organomegaly Musculoskeletal: Pulses present and equal in all extremities, no peripheral edema Motor: Moves all extremities Neurological: CN II-XII grossly intact, no focal motor or sensory deficits noted Skin: Intact with no visualized rashes Limitations: altered mental status Course Vital Signs 08/29/18 08/29/18 08/29/18 20:22 20:38 20:40 Temperature 98.4 F Pulse Rate 45 L 91 93 Respiratory 22 15 20 Rate Blood Pressure 120/83 129/79 129/79 O2 Sat by Pulse 97 98 92 L Oximetry 08/29/18 08/29/18 08/30/18 20:50 23:00 00:07 Temperature Pulse Rate 93 73 Respiratory 20 20 20 Rate Blood Pressure 129/79 133/71 O2 Sat by Pulse 93 L 98 Oximetry Medical Decision Making - Medical Decision Making ED course: 62-year-old male presents with chief complaint of tonic-clonic like activity suspicious for seizures. As upon arrival are within acceptable limits. Patient's heart rate is not 45 as well as documented. Patient presents with jerking rhythmic movements. Patient is responsive to noxious stimuli. At this point there is no clinical suspicion of generalized tonic- clonic seizure. Patient stops jerking movement when noxious stimuli is applied to the toes. Patient also splashed with cold water and was responsive wiping water onto his face in a controlled manner. She has stable vital signs. He is not hypoxic. Review shows that patient has been in the hospital for this in the past.Laboratory evaluation obtained. Patient had mild leukocytosis of 13.7 likely secondary to stress. Rest of CBC is unremarkable. Patient's sodium is 126, there is gap acidosis. Patient's lactic acid level .8. Glucose 104. Rest of metabolic panel is unremarkable. Rapid urine drug screen shows positive marijuana. Salicylates, Tylenol and alcohol all negative. Chest x- ray shows no acute processes. Patient is reevaluated after benzodiazepine administration with improvement patient. Patient still slightly tired however response to commands appropriately. Brain CT is unremarkable. Clinically speaking its highly doubtful that patient did suffer tonic-clonic seizure. However his labs would suggest that maybe patient did have tonic-clonic seizure. Chart review was performed. EKG was done recently and showed non- epileptiform waves. Chart review shows that patient has been evaluated by neurology in the past and patient has been given Keppra and other antiseizure medications. This point we will keep patient admitted to the hospital for hyponatremia. Patient given intravenous fluids. Neurology to be on consultation. Patient's clinical picture did not entirely fit with seizure with antiepileptic medication noncompliance. There could be a reason for patient's metabolic Acidosis. Patient reevaluated and still not completely back to baseline. clinical presentation is suspicious for atypical seizure. Patient is reevaluated prior to transfer to inpatient. Patient denies any suicidal or homicidal ideation. Patient states he did not take any strenuous drugs. Repeat neuro exam showed some left being nystagmus. Patient however is answering appropriately and moving all extremities without any neuro deficits. EKG interpretation: Ventricular rate 84. Normal sinus rhythm, AZ interval 180, Curasol 8, QTC 472 No AZ prolongation, no QTC prolongation, no ST or T-wave changes noted. Overall, this EKG is unremarkable - Lab Data Result diagrams: 08/29/18 20:40 08/29/18 20:40 Lab Results 08/29/18 08/29/18 08/29/18 Range/Units 20:40 20:40 20:40 WBC 13.7 H (3.8-10.6) k/uL RBC 4.09 L (4.30-5.90) m/uL Hgb 12.9 L (13.0-17.5) gm/dL Hct 38.2 L (39.0-53.0) % MCV 93.3 (80.0-100.0) fL MCH 31.5 (25.0-35.0) pg MCHC 33.8 (31.0-37.0) g/dL RDW 12.7 (11.5-15.5) % Plt Count 190 (150-450) k/uL Neutrophils % 81 % Lymphocytes % 13 % Monocytes % 4 % Eosinophils % 1 % Basophils % 0 % Neutrophils # 11.1 H (1.3-7.7) k/uL Lymphocytes # 1.8 (1.0-4.8) k/uL Monocytes # 0.6 (0-1.0) k/uL Eosinophils # 0.1 (0-0.7) k/uL Basophils # 0.0 (0-0.2) k/uL Sodium 126 L (137-145) mmol/L Potassium 4.8 (3.5-5.1) mmol/L Chloride 94 L (98-107) mmol/L Carbon Dioxide 16 L (22-30) mmol/L Anion Gap 16 mmol/L BUN 12 (9-20) mg/dL Creatinine 0.83 (0.66-1.25) mg/dL Est GFR (CKD-EPI)AfAm >90 (>60 ml/min/1.73 sqM) Est GFR (CKD-EPI)NonAf >90 (>60 ml/min/1.73 sqM) Glucose 104 H (74-99) mg/dL Plasma Lactic Acid Pramod (0.7-2.0) mmol/L Calcium 8.2 L (8.4-10.2) mg/dL Magnesium 1.7 (1.6-2.3) mg/dL Salicylates <1.0 mg/dL Urine Opiates Screen (NotDetected) Ur Oxycodone Screen (NotDetected) Urine Methadone Screen (NotDetected) Ur Propoxyphene Screen (NotDetected) Acetaminophen <10.0 ug/mL Ur Barbiturates Screen (NotDetected) U Tricyclic Antidepress (NotDetected) Ur Phencyclidine Scrn (NotDetected) Ur Amphetamines Screen (NotDetected) U Methamphetamines Scrn (NotDetected) U Benzodiazepines Scrn (NotDetected) Urine Cocaine Screen (NotDetected) U Marijuana (THC) Screen (NotDetected) Serum Alcohol <10 <10 mg/dL 08/29/18 08/29/18 Range/Units 20:40 21:15 WBC (3.8-10.6) k/uL RBC (4.30-5.90) m/uL Hgb (13.0-17.5) gm/dL Hct (39.0-53.0) % MCV (80.0-100.0) fL MCH (25.0-35.0) pg MCHC (31.0-37.0) g/dL RDW (11.5-15.5) % Plt Count (150-450) k/uL Neutrophils % % Lymphocytes % % Monocytes % % Eosinophils % % Basophils % % Neutrophils # (1.3-7.7) k/uL Lymphocytes # (1.0-4.8) k/uL Monocytes # (0-1.0) k/uL Eosinophils # (0-0.7) k/uL Basophils # (0-0.2) k/uL Sodium (137-145) mmol/L Potassium (3.5-5.1) mmol/L Chloride (98-107) mmol/L Carbon Dioxide (22-30) mmol/L Anion Gap mmol/L BUN (9-20) mg/dL Creatinine (0.66-1.25) mg/dL Est GFR (CKD-EPI)AfAm (>60 ml/min/1.73 sqM) Est GFR (CKD-EPI)NonAf (>60 ml/min/1.73 sqM) Glucose (74-99) mg/dL Plasma Lactic Acid Pramod 6.8 H* (0.7-2.0) mmol/L Calcium (8.4-10.2) mg/dL Magnesium (1.6-2.3) mg/dL Salicylates mg/dL Urine Opiates Screen Not Detected (NotDetected) Ur Oxycodone Screen Not Detected (NotDetected) Urine Methadone Screen Not Detected (NotDetected) Ur Propoxyphene Screen Not Detected (NotDetected) Acetaminophen ug/mL Ur Barbiturates Screen Not Detected (NotDetected) U Tricyclic Antidepress Not Detected (NotDetected) Ur Phencyclidine Scrn Not Detected (NotDetected) Ur Amphetamines Screen Not Detected (NotDetected) U Methamphetamines Scrn Not Detected (NotDetected) U Benzodiazepines Scrn Not Detected (NotDetected) Urine Cocaine Screen Not Detected (NotDetected) U Marijuana (THC) Screen Detected H (NotDetected) Serum Alcohol mg/dL Disposition Clinical Impression: Seizure Disposition: ADMITTED IP TO THIS [facility] Condition: Fair Referrals: Lucia Kc MD [Primary Care Provider] - 1-2 days Decision Time: 00:18
[2018-08-29 21:38] LABS: Basophils % (A) 0 %; Eosinophils # (A) 0.1 k/uL (0-0.7); Eosinophils % (A) 1 %; HCT 38.2 % (39.0-53.0); HGB 12.9 gm/dL (13.0-17.5); Lymphocytes # (A) 1.8 k/uL (1.0-4.8); Lymphocytes % (A) 13 %; MCH 31.5 pg (25.0-35.0); MCHC 33.8 g/dL (31.0-37.0); MCV 93.3 fL (80.0-100.0); Mean Platelet Volume 7.3; Monocytes # (A) 0.6 k/uL (0-1.0); Monocytes % (A) 4 %; Neutrophils # (A) 11.1 k/uL (1.3-7.7); Neutrophils % (A) 81 %; Platelet Count 190 k/uL (150-450); RBC 4.09 m/uL (4.30-5.90); RDW 12.7 % (11.5-15.5); WBC 13.7 k/uL (3.8-10.6)
[2018-08-29 21:41] LABS: Alcohol <10 mg/dL; Anion Gap 16 mmol/L; Blood Urea Nitrogen 12 mg/dL (9-20); Calcium 8.2 mg/dL (8.4-10.2); Carbon Dioxide 16 mmol/L (22-30); Chloride 94 mmol/L (98-107); Glucose 104 mg/dL (74-99); Sodium 126 mmol/L (137-145)
[2018-08-29 21:46] LABS: Magnesium 1.7 mg/dL (1.6-2.3); Potassium 4.8 mmol/L (3.5-5.1)
[2018-08-29 21:55] LABS: Amphetamine Screen,Urine Not Detected (NotDetected); Barbiturate Screen,Urine Not Detected (NotDetected); Benzodiazepines Screen,Urine Not Detected (NotDetected); Cocaine Screen,Urine Not Detected (NotDetected); Methadone Screen, Urine Not Detected (NotDetected); Opiate Screen,Urine Not Detected (NotDetected); Oxycodone Screen, Urine Not Detected (NotDetected); Phencyclidine Screen,Urine Not Detected (NotDetected); Tricyclic Antidepressant,Urine Not Detected (NotDetected); Urn Cannabinoid Scrn Detected (NotDetected)
--- NOTE | 2018-08-29 22:21 | XR ---
EXAMINATION TYPE: XR chest 1V portable DATE OF EXAM: 08/29/2018 COMPARISON: 01/15/2018 HISTORY: Seizure TECHNIQUE: Single frontal view of the chest is obtained. FINDINGS: There is no heart failure nor confluent pneumonic infiltrate. Costophrenic angles are gilmer r. There are chest leads. The bony thorax is intact. There is mild pleural scarring at the lung apice s. IMPRESSION: No active cardiopulmonary disease. No change.
[2018-08-29] MEDS ORDERED: SODIUM CHLORIDE 0.9% 1,000 ML IV STA (23:14)
[2018-08-29 23:42] LABS: Acetaminophen <10.0 ug/mL; Alcohol <10 mg/dL; Salicylate <1.0 mg/dL
[2018-08-29] MEDS ORDERED: levETIRAcetam IV 1,000 MG in SALINE 1 100ML.BAG IVPB STA (23:59)
[2018-08-30] MEDS ORDERED: NALOXONE 0.4 MG/ML 1 ML VIAL IV PRN (00:07)
--- NOTE | 2018-08-30 00:08 | CT ---
EXAMINATION TYPE: CT brain wo con DATE OF EXAM: 08/29/2018 COMPARISON: 04/25/2018 HISTORY: seizure CT DLP: 1154.4 mGycm Automated exposure control for dose reduction was used. FINDINGS: Ventricles of normal size. There is no mass effect nor midline shift. There is no sign of intracrania l hemorrhage. The calvarium is intact. IMPRESSION: NEGATIVE CT SCAN OF THE BRAIN. NO CHANGE.
[2018-08-30] MEDS ORDERED: SODIUM CHLORIDE 0.9% 1,000 ML IV STA (00:16)
[2018-08-30 02:07] VITALS: BMI 21.5
[2018-08-30 04:17] LABS: VBG PH 7.41 (7.31-7.41)
--- NOTE | 2018-08-30 18:07 | HP ---
HISTORY AND PHYSICAL CHIEF COMPLAINT: Grand mal seizure. HISTORY OF PRESENT ILLNESS: This is another of many admissions for this 62-year-old white male who has a long- standing history of basically pseudoseizures. He has not been in the office for some time. He was last seen in March. Apparently he was brought in having apparent tonic- clonic or focal motor seizures and also had electrolyte imbalance with hyponatremia. REVIEW OF SYSTEMS: Review of systems is difficult to obtain. He seems confused. Past medical history, family history, and personal and social histories reveal that he has been on various medications, which are detailed in his med rec. He also has a history of encephalopathy, CAD and CHF. He has been a smoker on and off in the past. He has also had a history of alcohol abuse, but states that he has not been drinking for some time. He has used cocaine in the past as well. PHYSICAL EXAMINATION: Blood pressure 128/80 with a pulse of 60, respirations 16. He is afebrile. In general he appeared to be well developed, well nourished, in no acute distress. Skin color was normal. Skin was warm and dry. Lymph nodes were not enlarged. Head, ears, eyes, nose, mouth and throat were normal. Pupils equal, round and reactive and gaze was conjugate. Neck was supple. Neck veins were not distended. Carotids were normal. Chest was clear. Cardiac exam was normal. Abdomen was soft, nontender. Extremities were normal. Neurologically he was intact. IMPRESSION: 1. Grand mal seizure disorder. 2. Pseudoseizure disorder. 3. History of coronary artery disease. PLAN: 1. Bed rest. 2. Seizure precautions. 3. Keppra blood levels. MMODL / IJN: [id number] /
[2018-08-30] MEDS: METOPROLOL TARTRATE 25 MG TAB PO SCH (20:29)
[2018-08-30] MEDS ORDERED: QUEtiapine 50 MG TAB PO SCH (21:00)
[2018-08-30] MEDS ORDERED: ASPIRIN 81 MG PO SCH (21:00)
[2018-08-30] MEDS ORDERED: MONTELUKAST 10 MG TAB PO SCH (21:00)
--- NOTE | 2018-08-30 21:58 | P.CNNES ---
History of Present Illness Consult date: 08/30/18 Requesting physician: Angelo Perez Reason for Consult: Seizure History of Present Illness: Patient is a 62-year-old male who is being evaluated by the neurology service on 08/30/2018 per the request of Dr. Perez for seizures. Patient has history of pseudoseizures. Patient has had multiple admissions for seizures. Apparently patient was at someone's house when EMS was called due to witnessed tonic-clonic type activity. Patient takes Keppra 1500 mg twice a day in the home setting. Patient was brought to [facility] and was given Keppra 1000 milligrams IV. Patient also has history of bipolar and takes Seroquel at home. Vision states he lives with his daughter. Patient admits to drinking for the last few days and not taking his medicine until at night. He does not know how much Keppra he takes. He states sometimes his daughter her grandson will help him with this medication. Vital signs on admission showed temperature of 98.4, pulse 45, respiratory rate 22, blood pressure 120/83, O2 saturation 97% on a nonrebreather. Keppra level was drawn and sent out. Labs on admission showed WBC 13.7, RBCs 409, hemoglobin 12.9, hematocrit 38.2. Sodium is 126, chloride 94, carbon dioxide 16, and elevated plasma lactic acid level of 6.8. At the time of my evaluation, patient is resting comfortably in bed and appears to be in no acute distress. Review of Systems REVIEW OF SYSTEMS: Otherwise unremarkable and noncontributory. Past Medical History Past Medical History: Chest Pain / Angina, Heart Failure, COPD, GERD/Reflux, Hypertension, Seizure Disorder, Thyroid Disorder Additional Past Medical History / Comment(s): falls,bronchitis,Memory impairment , legally incapacitated, hypothyroid, small hiatal hernia, diverticulosis History of Any Multi-Drug Resistant Organisms: None Reported Past Surgical History: Hernia Repair, Joint Replacement, Orthopedic Surgery Additional Past Surgical History / Comment(s): 08/2017 EGGD/colonoscopy, prior colonoscopy, umbilical hernia repair, L total knee, R partial knee replacement, R lower leg fracture with ORIF (hardware in place), ERCP, bilateral knee arthroscopies. Past Anesthesia/Blood Transfusion Reactions: No Reported Reaction Past Psychological History: Anxiety, Bipolar, Depression, Schizophrenia Additional Psychological History / Comment(s): Pt resides with his daughter, Pat who is his mental health advanced practice nurse, legal gaurdian. Pt ambulates without device. He does not drive, daughter takes him to appts. Smoking Status: Current every day smoker Past Alcohol Use History: Occasional Additional Past Alcohol Use History / Comment(s): Pt started smoking in 1971 and is less than a ppd smoker on average. Past Drug Use History: Marijuana Additional Drug Use History / Comment(s): Pt occasionally smokes marijuana. - Past Family History Father Family Medical History: Cancer, Coronary Artery Disease (CAD), Pneumonia Additional Family Medical History / Comment(s): Father had a pacemaker. He of pneumonia. Mother Family Medical History: Coronary Artery Disease (CAD), CVA/TIA Medications and Allergies Home Medications Medication Instructions Recorded Confirmed Type Cholecalciferol [Vitamin D3] 5,000 unit PO DAILY 02/03/17 08/29/18 History Aspirin EC [Ecotrin Low Dose] 81 mg PO HS 06/28/17 08/29/18 History Metoprolol Tartrate [Lopressor] 25 mg PO BID 08/08/17 08/29/18 History Losartan Potassium 50 mg PO DAILY 12/30/17 08/29/18 History Montelukast [Singulair] 10 mg PO HS 12/30/17 08/29/18 History QUEtiapine [SEROquel] 50 mg PO HS 01/15/18 08/29/18 History Levothyroxine Sodium [Synthroid] 75 mcg PO DAILY 02/20/18 08/29/18 History Venlafaxine HCl [Effexor XR] 225 mg PO DAILY 02/20/18 08/29/18 History levETIRAcetam [Keppra] 1,500 mg PO BID 02/20/18 08/29/18 History Allergies Allergy/AdvReac Type Severity Reaction Status Date / Time No Known Allergies Allergy Verified 08/29/18 21:27 Physical Examination - Vital Signs Vital Signs: Vital Signs Temp Pulse Pulse Resp BP BP Pulse Ox 08/30/18 20:00 98.2 F 95 18 122/68 97 08/30/18 15:00 99.7 F H 89 12 112/66 95 08/30/18 10:11 98.4 F 92 18 99/59 95 08/30/18 02:18 97.6 F 71 16 111/69 95 08/30/18 01:37 98 F 90 18 124/88 96 08/30/18 00:07 20 133/71 98 08/29/18 23:00 73 20 Intake and Output 08/30/18 08/30/18 08/30/18 06:59 14:59 22:59 Output Total 750 Balance -750 Output: Urine 750 Other: Voiding Method Toilet # Voids 1 3 Weight 68.039 kg PHYSICAL EXAM: GENERAL APPEARANCE: Patient is a well-developed, male who appears to be in no acute distress. HEENT: Normocephalic, atraumatic, no facial asymmetry is seen. Neck is supple with no masses felt. CARDIOVASCULAR: Regular rate and rhythm. ABDOMEN: Nontender, nondistended. EXTREMITIES: Show no edema or clubbing. NEUROLOGICAL EXAM: Patient is sleeping but is easily awoken. Patient is oriented to self and place. Patient does not know what year this is. Speech and language are normal. Strength is full in all 4 extremities. Sensory exam to light touch is normal in all 4 extremities. No facial asymmetry is seen on cranial nerve testing. No tremors or seizure-like activity noted. Results - Laboratory Findings CBC and BMP: 08/29/18 20:40 08/29/18 20:40 Abnormal Lab Findings: Abnormal Labs 08/29/18 08/29/18 08/29/18 20:40 20:40 20:40 WBC 13.7 H RBC 4.09 L Hgb 12.9 L Hct 38.2 L Neutrophils # 11.1 H Sodium 126 L Chloride 94 L Carbon Dioxide 16 L Glucose 104 H Plasma Lactic Acid Pramod 6.8 H* Calcium 8.2 L U Marijuana (THC) Screen 08/29/18 21:15 WBC RBC Hgb Hct Neutrophils # Sodium Chloride Carbon Dioxide Glucose Plasma Lactic Acid Pramod Calcium U Marijuana (THC) Screen Detected H Assessment and Plan Plan: Impression: 1. Seizures, tonic-clonic type 2. History of EtOH 3. Bipolar disorder 4. History of pseudoseizures 5. History of CAD 6. Hyponatremia 7. Bradycardia Recommendations: It does appear patient had a breakthrough seizure witnessed at home. It is not clear whether patient has been compliant with seizure medication. Patient tells me he's been drinking over the last few days and has only been taking his medication at night. Keppra level was drawn and results are pending. Patient was given Keppra 1000 mg IV in the emergency room. No further seizure activity since admission. Computed tomography scan of the brain was negative for any acute process. I recommend continuing home dose of Keppra. I will order an EEG. Await Keppra level. I advise correcting sodium level slowly as to prevent central pontine myelinolysis. I recommend a cardiology consult for bradycardia. Continue neurological checks. Continue seizure precautions. Patient will need to follow-up with Dr. Kirkland after discharge. I will continue to follow with you. Further recommendations to follow. Thank you for allowing me to participate in the care of your patient. Feel free to call with any questions or concerns. I performed an examination of the patient and discussed the management with the FINE DINING SERVER. I have reviewed the FINE DINING SERVER notes and agree with the findings and plan of care.
[2018-08-31] MEDS ORDERED: VENLAFAXINE HCL ER 75 MG CAP PO SCH (09:00)
[2018-08-31] MEDS ORDERED: LOSARTAN 50 MG TAB PO SCH (09:00)
[2018-08-31] MEDS: METOPROLOL TARTRATE 25 MG TAB PO SCH (09:30)
--- NOTE | 2018-08-31 13:26 | DS ---
DISCHARGE SUMMARY CHIEF COMPLAINT: Seizure. HISTORY OF PRESENT ILLNESS AND PHYSICAL EXAMINATION: Details of this man's history and physical can be found in the initial workup. LABORATORY STUDIES: While he was in the hospital he had laboratory studies, details of which can be found in the laboratory section of his chart. They were unremarkable. Keppra level was ordered but was not back at the time of this dictation. COURSE IN THE HOSPITAL: After admission he was placed on bedrest and on seizure precautions. He had no further problems or seizures. He was doing well and it was felt that he could be discharged on 08/31. He will follow up in several days. FINAL DIAGNOSES: 1. Grand mal seizure disorder. 2. Schizophrenia. 3. History of hypertension. 4. Pseudoseizures. OPERATIONS: None. CONSULTATIONS: None. He is improved. MMODL / IJN: [id number] /
[2018-08-31 15:26] VITALS: BP 125/77; PULSE 72; RESP 20; TEMP 99
--- NOTE | 2018-08-31 17:03 | P.PN ---
Subjective Progress Note Date: 08/31/18 Principal diagnosis: Patient is a 62-year-old male is being followed by the neurology service for seizures. Patient has not had any seizures since admission. Patient had a witnessed seizure as an outpatient was brought to [facility] for evaluation. Patient reports he has not been taking his medicine as prescribed due to him having a few alcoholic drinks. Patient states when he decides to have a couple drinks he does not take his medication. I did discuss with him the importance of adhering to taking his prescribed medication as ordered. Patient is back to baseline. Patient is still confused as to the date , the year, and who the president is. I spoke with daughter Pat states this is normal for him. At the time of my evaluation, patient's resting comfortably in bed and appears to be in no acute distress. Objective - Vital Signs Vital signs: Vital Signs Temp 99.0 F 08/31/18 15:24 Pulse 72 08/31/18 15:24 Resp 20 08/31/18 15:24 BP 125/77 08/31/18 15:24 Pulse Ox 96 08/31/18 15:24 Intake & Output 08/30/18 08/31/18 08/31/18 18:59 06:59 18:59 Intake Total 350 640 Balance 350 640 Intake: Intake, IV Titration 350 Amount Sodium Chloride 0.9% 1, 350 000 ml @ 100 mls/hr IV . Q10H [facility] Rx#:[id number] Oral 640 Other: Voiding Method Toilet Toilet # Voids 3 2 - Exam PHYSICAL EXAM: GENERAL APPEARANCE: Patient is a well-developed, male who appears to be in no acute distress. HEENT: Normocephalic, atraumatic, no facial asymmetry is seen. Neck is supple with no masses felt. CARDIOVASCULAR: Regular rate and rhythm. ABDOMEN: Nontender, nondistended. EXTREMITIES: Show no edema or clubbing. NEUROLOGICAL EXAM: Patient is awake, alert, and oriented 1. Patient does not know what year this is, what month this is, or the president is. This is baseline for patient. No lateralizing weakness is seen. Sensory exam to light touch is normal in all 4 extremities. No facial asymmetry is seen on cranial nerve testing. No tremors or seizure-like activity noted. - Labs CBC & Chem 7: 08/29/18 20:40 08/29/18 20:40 Assessment and Plan Plan: Impression: 1. Seizures, tonic-clonic type 2. History of EtOH 3. Bipolar disorder 4. History of pseudoseizures 5. History of CAD 6. Hyponatremia 7. Bradycardia Recommendations: It does appear patient had a breakthrough seizure witnessed at home. It is not clear whether patient has been compliant with seizure medication. Patient tells me he's been drinking over the last few days and has only been taking his medication at night. Keppra level was drawn and results are pending. Patient was given Keppra 1000 mg IV in the emergency room. No further seizure activity since admission. Computed tomography scan of the brain was negative for any acute process. I recommend continuing home dose of Keppra. I advise correcting sodium level slowly as to prevent central pontine myelinolysis. I will order a CMP to be done prior to discharge to evaluate sodium. I recommend a cardiology consult for bradycardia. Continue neurological checks. Continue seizure precautions. Patient will need to follow -up with Dr. Kirkland after discharge. If sodium is within normal limits patient is stable for discharge from a neurological standpoint. I will continue to follow with you. Further recommendations to follow. I performed an examination of the patient and discussed the management with the SURGICAL ORDERLY. I have reviewed the SURGICAL ORDERLY notes and agree with the findings and plan of care.
[2018-08-31 18:12] LABS: Albumin 3.4 g/dL (3.5-5.0); Calcium 8.8 mg/dL (8.4-10.2); Potassium 4.5 mmol/L (3.5-5.1); Total Bilirubin 0.3 mg/dL (0.2-1.3); Total Protein 6.2 g/dL (6.3-8.2)
== END 2018-08-31 19:24 | disposition home or self-care (01) | DRG 101 ==
LOC: EC 20:14 → 4SSUR 08-30 00:18
PROVIDERS: ADMIT Family Medicine; ATTEND Family Medicine
DX: G40.409 Other generalized epilepsy and epileptic syndromes, not intractable, without status epilepticus (principal); E87.1 Hypo-osmolality and hyponatremia; E87.2 Acidosis; F20.9 Schizophrenia, unspecified; D72.829 Elevated white blood cell count, unspecified; E03.9 Hypothyroidism, unspecified; Z79.82 Long term (current) use of aspirin; Z79.890 Hormone replacement therapy; Z79.899 Other long term (current) drug therapy; F17.200 Nicotine dependence, unspecified, uncomplicated; F31.9 Bipolar disorder, unspecified; H55.00 Unspecified nystagmus; I11.0 Hypertensive heart disease with heart failure; I25.10 Atherosclerotic heart disease of native coronary artery without angina pectoris; I50.9 Heart failure, unspecified; J44.9 Chronic obstructive pulmonary disease, unspecified; K21.9 Gastro-esophageal reflux disease without esophagitis; Z82.49 Family history of ischemic heart disease and other diseases of the circulatory system; Z96.653 Presence of artificial knee joint, bilateral; F41.9 Anxiety disorder, unspecified; K57.90 Diverticulosis of intestine, part unspecified, without perforation or abscess without bleeding; K44.9 Diaphragmatic hernia without obstruction or gangrene; Z91.81 History of falling; F10.10 Alcohol abuse, uncomplicated; F14.11 Cocaine abuse, in remission; R00.1 Bradycardia, unspecified
CPT/HCPCS: 36415; 70450; 71045; 80048; 80053; 80177; 80306; 80320; 82803; 83520; 83605; 83735; 85025; 93005; 96361; 96374; 96375; 99285

== ENCOUNTER 2019-03-11 17:56 | Inpatient (IN) | payer MEDICARE ==
[2019-03-11] MEDS ORDERED: SODIUM CHLORIDE 0.9% 500 ML 500 ML IV STA (18:00)
[2019-03-11] MEDS ORDERED: levETIRAcetam IV 1,000 MG in SALINE 1 100ML.BAG IVPB STA (18:02)
--- NOTE | 2019-03-11 18:16 | ED ---
General Adult HPI - General Stated complaint: SEIZURE Time Seen by Provider: 03/11/19 17:58 Source: EMS, RN notes reviewed, old records reviewed - History of Present Illness Initial comments: 63-year-old male presenting with generalized seizure. Patient has seizure disorder, currently on Keppra. History is obtained from EMS and review of medical record. Patient was transported by EMS after several small episodes of seizure-like activity followed by tonic-clonic seizure lasting approximately 1 minute. He was given 5 mg of Versed by EMS prior to arrival. Patient was mildly confused prior to tonic-clonic seizure, stable vitals, he was moving all extremities. He has no seizure disorder. Further history will be obtained when patient's family is available. - Related Data Home Medications Medication Instructions Recorded Confirmed Cholecalciferol [Vitamin D3 (25 5,000 unit PO DAILY 02/03/17 03/11/19 Mcg = 1000 Iu)] Metoprolol Tartrate [Lopressor] 25 mg PO BID 08/08/17 03/11/19 Losartan Potassium 50 mg PO DAILY 12/30/17 03/11/19 Montelukast [Singulair] 10 mg PO HS 12/30/17 03/11/19 QUEtiapine [SEROquel] 50 mg PO HS 01/15/18 03/11/19 Levothyroxine Sodium [Synthroid] 75 mcg PO DAILY 02/20/18 03/11/19 Venlafaxine HCl [Effexor XR] 225 mg PO DAILY 02/20/18 03/11/19 levETIRAcetam [Keppra] 1,500 mg PO BID 02/20/18 03/11/19 Melatonin 3 mg PO HS 03/11/19 03/11/19 Ranitidine HCl [Zantac] 150 mg PO DAILY 03/11/19 03/11/19 Allergies Allergy/AdvReac Type Severity Reaction Status Date / Time No Known Allergies Allergy Verified 03/11/19 18:27 Review of Systems ROS Statement: Those systems with pertinent positive or pertinent negative responses have been documented in the HPI. ROS Other: All systems not noted in ROS Statement are negative. Past Medical History Past Medical History: Chest Pain / Angina, Heart Failure, COPD, GERD/Reflux, Hypertension, Seizure Disorder, Thyroid Disorder Additional Past Medical History / Comment(s): falls,bronchitis,Memory impairment, legally incapacitated, hypothyroid, small hiatal hernia, diverticulosis History of Any Multi-Drug Resistant Organisms: None Reported Past Surgical History: Hernia Repair, Joint Replacement, Orthopedic Surgery Additional Past Surgical History / Comment(s): 08/2017 EGGD/colonoscopy, prior colonoscopy, umbilical hernia repair, L total knee, R partial knee replacement, R lower leg fracture with ORIF (hardware in place), ERCP, bilateral knee art hroscopies. Past Anesthesia/Blood Transfusion Reactions: No Reported Reaction Past Psychological History: Anxiety, Bipolar, Depression, Schizophrenia Additional Psychological History / Comment(s): Pt resides with his daughter, Pat who is his director of music, legal gaurdian. Pt ambulates without device. He does not drive, daughter takes him to [employer]. Smoking Status: Current every day smoker Past Alcohol Use History: Occasional Additional Past Alcohol Use History / Comment(s): Pt started smoking in 1971 and is less than a ppd smoker on average. Past Drug Use History: Marijuana Additional Drug Use History / Comment(s): Pt occasionally smokes marijuana. - Past Family History Father Family Medical History: Cancer, Coronary Artery Disease (CAD), Pneumonia Additional Family Medical History / Comment(s): Father had a pacemaker. He of pneumonia. Mother Family Medical History: Coronary Artery Disease (CAD), CVA/TIA General Exam General appearance: obtunded Head exam: Present: atraumatic, normocephalic Eye exam: Present: normal appearance, PERRL ENT exam: Present: mucous membranes dry Neck exam: Present: normal inspection. Absent: tenderness, meningismus Respiratory exam: Present: rhonchi (Transmitted upper airway sounds). Absent: respiratory distress Cardiovascular Exam: Present: regular rate, normal rhythm GI/Abdominal exam: Present: soft. Absent: distended, tenderness Extremities exam: Present: normal inspection, normal capillary refill. Absent: pedal edema Neurological exam: Absent: motor sensory deficit Skin exam: Present: warm, dry, intact. Absent: cyanosis, diaphoretic Course Vital Signs 03/11/19 03/11/19 03/11/19 17:58 18:03 18:30 Temperature 97.9 F Pulse Rate 109 H 105 H Respiratory 14 20 Rate Blood Pressure 180/103 182/103 160/108 O2 Sat by Pulse 94 L 93 L Oximetry 03/11/19 03/11/19 03/11/19 19:00 19:30 20:00 Temperature Pulse Rate 98 87 Respiratory 21 11 L Rate Blood Pressure 99/76 115/79 O2 Sat by Pulse Oximetry 03/11/19 20:30 Temperature Pulse Rate 81 Respiratory 17 Rate Blood Pressure 124/75 O2 Sat by Pulse 100 Oximetry EKG Findings - EKG Comments: EKG Findings:: EKG: Normal sinus rhythm, incomplete right bundle-branch block, rate of 79, AK interval 190, QRS duration 106, QTC 465, no ST segment changes. Medical Decision Making - Medical Decision Making 63-year-old male history presents with seizure. Patient is initially lethargic, he is protecting his airway. He was given 5 mg of Versed by EMS prior to arrival. He has a nonfocal exam, is moving all extremities. He has history of recurrent seizures in his had multiple ER visits and admissions with prolonged seizure and prolonged postictal period. Workup in the emergency department reveals leukocytosis, white blood cell count 18.8 he has a significant lactic acidosis secondary to prolonged seizure, initial lactic is 24, this is down trending after 1 L at 8.9. His CO2 was initially quite low at 6, this improves to 17. He has a venous gas which reveals pH 7.27 which is mildly acidotic. Patient is loaded with Keppra awaiting Keppra levels. Given IV hydration. He is placed on seizure precautions. Given the significant electrolyte and acidosis she will be placed in the ICU for close monitoring. Neuro checks every 2 hours. Neurology placed on consult. 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 - Lab Data Result diagrams: 03/11/19 18:21 03/11/19 19:40 Lab Results 03/11/19 03/11/19 03/11/19 Range/Units 18:21 18:21 18:21 WBC 18.8 H (3.8-10.6) k/uL RBC 5.00 (4.30-5.90) m/uL Hgb 15.7 (13.0-17.5) gm/dL Hct 49.1 (39.0-53.0) % MCV 98.2 (80.0-100.0) fL MCH 31.3 (25.0-35.0) pg MCHC 31.9 (31.0-37.0) g/dL RDW 13.6 (11.5-15.5) % Plt Count 407 (150-450) k/uL Neutrophils % 67 % Lymphocytes % 24 % Monocytes % 5 % Eosinophils % 1 % Basophils % 1 % Neutrophils # 12.5 H (1.3-7.7) k/uL Lymphocytes # 4.5 (1.0-4.8) k/uL Monocytes # 0.9 (0-1.0) k/uL Eosinophils # 0.2 (0-0.7) k/uL Basophils # 0.2 (0-0.2) k/uL VBG pH (7.31-7.41) VBG pCO2 (37-51) mmHg VBG HCO3 (24-28) mmol/L Sodium 135 L (137-145) mmol/L Potassium 3.9 (3.5-5.1) mmol/L Chloride 96 L (98-107) mmol/L Carbon Dioxide 6 L* (22-30) mmol/L Anion Gap 33 mmol/L BUN 9 (9-20) mg/dL Creatinine 1.21 (0.66-1.25) mg/dL Est GFR (CKD-EPI)AfAm 75 (>60 ml/min/1.73 sqM) Est GFR (CKD-EPI)NonAf 64 (>60 ml/min/1.73 sqM) Glucose 125 H (74-99) mg/dL Plasma Lactic Acid Pramod >24.0 H* (0.7-2.0) mmol/L Calcium 10.0 (8.4-10.2) mg/dL Magnesium 2.3 (1.6-2.3) mg/dL Total Bilirubin 0.5 (0.2-1.3) mg/dL AST 30 (17-59) U/L ALT 19 L (21-72) U/L Alkaline Phosphatase 68 (38-126) U/L Total Protein 8.0 (6.3-8.2) g/dL Albumin 5.2 H (3.5-5.0) g/dL 03/11/19 03/11/19 03/11/19 Range/Units 19:40 19:40 19:40 WBC (3.8-10.6) k/uL RBC (4.30-5.90) m/uL Hgb (13.0-17.5) gm/dL Hct (39.0-53.0) % MCV (80.0-100.0) fL MCH (25.0-35.0) pg MCHC (31.0-37.0) g/dL RDW (11.5-15.5) % Plt Count (150-450) k/uL Neutrophils % % Lymphocytes % % Monocytes % % Eosinophils % % Basophils % % Neutrophils # (1.3-7.7) k/uL Lymphocytes # (1.0-4.8) k/uL Monocytes # (0-1.0) k/uL Eosinophils # (0-0.7) k/uL Basophils # (0-0.2) k/uL VBG pH 7.27 L (7.31-7.41) VBG pCO2 41 (37-51) mmHg VBG HCO3 18 L (24-28) mmol/L Sodium 128 L (137-145) mmol/L Potassium 6.2 H* (3.5-5.1) mmol/L Chloride 97 L (98-107) mmol/L Carbon Dioxide 17 L (22-30) mmol/L Anion Gap 14 mmol/L BUN 10 (9-20) mg/dL Creatinine 1.06 (0.66-1.25) mg/dL Est GFR (CKD-EPI)AfAm 88 (>60 ml/min/1.73 sqM) Est GFR (CKD-EPI)NonAf 76 (>60 ml/min/1.73 sqM) Glucose 109 H (74-99) mg/dL Plasma Lactic Acid Pramod 8.9 H* (0.7-2.0) mmol/L Calcium 8.9 (8.4-10.2) mg/dL Magnesium (1.6-2.3) mg/dL Total Bilirubin (0.2-1.3) mg/dL AST (17-59) U/L ALT (21-72) U/L Alkaline Phosphatase (38-126) U/L Total Protein (6.3-8.2) g/dL Albumin (3.5-5.0) g/dL Disposition Clinical Impression: Generalized seizure, Lactic acid acidosis, Intractable seizure disorder, Post- ictal state Disposition: ADMITTED IP TO THIS [facility] Condition: Serious Is patient prescribed a controlled substance at d/c from ED?: No Referrals: Lucia Kc MD [Primary Care Provider] - 1-2 days Decision to Admit Reason: Admit from EC Decision Date: 03/11/19 Decision Time: 20:30
[2019-03-11 18:47] LABS: Basophils # (A) 0.2 k/uL (0-0.2); Basophils % (A) 1 %; Eosinophils # (A) 0.2 k/uL (0-0.7); Eosinophils % (A) 1 %; HCT 49.1 % (39.0-53.0); HGB 15.7 gm/dL (13.0-17.5); Lymphocytes # (A) 4.5 k/uL (1.0-4.8); Lymphocytes % (A) 24 %; MCH 31.3 pg (25.0-35.0); MCHC 31.9 g/dL (31.0-37.0); MCV 98.2 fL (80.0-100.0); Mean Platelet Volume 7.7; Monocytes # (A) 0.9 k/uL (0-1.0); Monocytes % (A) 5 %; Neutrophils # (A) 12.5 k/uL (1.3-7.7); Neutrophils % (A) 67 %; Platelet Count 407 k/uL (150-450); RDW 13.6 % (11.5-15.5); WBC 18.8 k/uL (3.8-10.6)
[2019-03-11 19:02] LABS: Albumin 5.2 g/dL (3.5-5.0); Magnesium 2.3 mg/dL (1.6-2.3); Potassium 3.9 mmol/L (3.5-5.1); Total Bilirubin 0.5 mg/dL (0.2-1.3)
[2019-03-11] MEDS ORDERED: SODIUM CHLORIDE 0.9% 1,000 ML IV ONE (19:22)
[2019-03-11 20:06] LABS: VBG PH 7.27 (7.31-7.41)
[2019-03-11 20:14] LABS: Calcium 8.9 mg/dL (8.4-10.2)
[2019-03-11 20:22] LABS: Potassium 6.2 mmol/L (3.5-5.1)
[2019-03-11] MEDS ORDERED: LORazepam 2 MG/ML INJ IV PRN (20:26)
[2019-03-11] MEDS ORDERED: NALOXONE 0.4 MG/ML 1 ML VIAL IV PRN (20:35)
[2019-03-11] MEDS ORDERED: ACETAMINOPHEN TAB 325 MG TAB PO PRN (20:35)
--- NOTE | 2019-03-11 20:57 | CT ---
EXAMINATION: CT brain wo con DATE AND TIME: 03/11/2019 8:06 PM CLINICAL INDICATION: PHH; seizure activity TECHNIQUE: Standard departmental protocol.; 1121.4; COMPARISON: None. FINDINGS: The calvarium is intact. There is no intracranial hemorrhage. There is no intracranial mass or mass effect. No definite new intra-axial or extra-axial attenuation defect. The paranasal sinuses, middle ear cavities, and mastoid sinus air cells are clear. The orbits are unremarkable. IMPRESSION: NO ACUTE PROCESS.
[2019-03-11] MEDS: SODIUM CHLORIDE 0.9% 1,000 ML IV SCH (22:00)
[2019-03-12 00:27] LABS: Glucose,Whole Blood 96 mg/dL (75-99)
[2019-03-12 02:48] LABS: Basophils % (A) 0 %; Eosinophils # (A) 0.1 k/uL (0-0.7); Eosinophils % (A) 1 %; HCT 38.8 % (39.0-53.0); HGB 12.9 gm/dL (13.0-17.5); Lymphocytes # (A) 1.8 k/uL (1.0-4.8); Lymphocytes % (A) 16 %; MCH 31.1 pg (25.0-35.0); MCHC 33.4 g/dL (31.0-37.0); MCV 93.4 fL (80.0-100.0); Mean Platelet Volume 6.3; Monocytes # (A) 0.7 k/uL (0-1.0); Monocytes % (A) 6 %; Neutrophils # (A) 8.5 k/uL (1.3-7.7); Neutrophils % (A) 75 %; Platelet Count 282 k/uL (150-450); RBC 4.15 m/uL (4.30-5.90); RDW 13.3 % (11.5-15.5); WBC 11.3 k/uL (3.8-10.6)
[2019-03-12 02:54] LABS: ALT 26 U/L (21-72); AST 24 U/L (17-59); Albumin 3.5 g/dL (3.5-5.0); Alkaline Phosphatase 55 U/L (38-126); Anion Gap 8 mmol/L; Blood Urea Nitrogen 7 mg/dL (9-20); Calcium 8.5 mg/dL (8.4-10.2); Carbon Dioxide 22 mmol/L (22-30); Chloride 105 mmol/L (98-107); Glucose 93 mg/dL (74-99); Magnesium 2.2 mg/dL (1.6-2.3); Potassium 3.9 mmol/L (3.5-5.1); Sodium 135 mmol/L (137-145); Total Bilirubin 0.4 mg/dL (0.2-1.3); Total Protein 5.8 g/dL (6.3-8.2)
[2019-03-12 06:59] VITALS: BMI 27.4
[2019-03-12] MEDS: SODIUM CHLORIDE 0.9% 1,000 ML IV SCH ×2 (08:37→17:52)
[2019-03-12] MEDS ORDERED: Potassium Replacement Protocol 1 EACH MISC MISCELLANE PRN (08:49)
[2019-03-12] MEDS ORDERED: POTASSIUM BICARBONATE/CIT AC 20 MEQ TABLET.EFF NG-TUBE SCH (09:00)
--- NOTE | 2019-03-12 10:32 | P.CNNES ---
History of Present Illness Consult date: 03/12/19 Requesting physician: Josep Garcia Reason for Consult: Seizure Chief complaint: Seizure History of Present Illness: Patient is a 63-year-old male who has history of seizure disorder for last almost 30 years. Patient is not a good historian, not able to provide any history. I had to call his daughter to a pain history. Patient's daughter states that he gets petit mal and grand mal seizures. His seizures were very well controlled in 2008, when he was able to get his driving license back. He started having breakthrough seizures since 02/03/2017 when he had multiple grand mal seizures. His daughter states that at that time he was intoxicated and had been doing cocaine. He started having memory loss afterwards. Patient was again admitted to the hospital in August 2018, but he was reported of getting into alcoholism also. He was continued on Keppra 1500 mg twice a day. Patient had an EEG performed at the time which was normal. Patient came to the hospital yesterday because of multiple seizures. He had multiple petit mal seizures followed by tonic-clonic seizure lasting for a minute. He was given 5 mg of Versed by EMS prior to arrival. Patient was post ictal on arrival. Patient bit his tongue, but no loss of control of urine. Patient's daughter states that his grand mal seizure seizure starts with turning his head to the right and then he gets a grand mal seizure lasting for about a minute. The petit mal seizures, he could have a blank stare, would not answer appropriately and has a blank look on his face. She could not tell how long does it last. Usually he lays down and sleeps it off. In the last 6 months, he had about 3 grand mal seizures, and 3-4 petit mal seizures. Patient's daughter states that she gives him the medications. He usually swallows the medication without any water. Her daughter feels that he is compliant with medication. Patient has not done any alcohol or drugs for more than 6 months. She does give him marijuana sometimes. Patient had a CT of the head which was normal. EKG showed normal sinus rhythm. Patient's blood test shows WBC 11.3, hemoglobin 12.9. Sodium is 128, has improved to 135. Renal function is normal. Liver functions are normal. Review of Systems Patient has sore tongue. Complains of left hip pain. Memory loss. Constitutional: Reports as per HPI Past Medical History Past Medical History: Chest Pain / Angina, Heart Failure, COPD, GERD/Reflux, Hypertension, Seizure Disorder, Thyroid Disorder Additional Past Medical History / Comment(s): falls,bronchitis,Memory impairm ent, legally incapacitated, hypothyroid, small hiatal hernia, diverticulosis History of Any Multi-Drug Resistant Organisms: None Reported Past Surgical History: Hernia Repair, Joint Replacement, Orthopedic Surgery Additional Past Surgical History / Comment(s): 08/2017 EGGD/colonoscopy, prior colonoscopy, umbilical hernia repair, L total knee, R partial knee replacement, R lower leg fracture with ORIF (hardware in place), ERCP, bilateral knee arthroscopies. Past Anesthesia/Blood Transfusion Reactions: No Reported Reaction Past Psychological History: Anxiety, Bipolar, Depression, Schizophrenia Additional Psychological History / Comment(s): Pt resides with his daughter, Pat who is his golf ball marker, legal gaurdian. Pt ambulates without device. He does not drive, daughter takes him to appts. Smoking Status: Current every day smoker Past Alcohol Use History: Occasional Additional Past Alcohol Use History / Comment(s): Pt started smoking in 1971 and is less than a ppd smoker on average. Past Drug Use History: Marijuana Additional Drug Use History / Comment(s): Pt occasionally smokes marijuana. - Past Family History Father Family Medical History: Cancer, Coronary Artery Disease (CAD), Pneumonia Additional Family Medical History / Comment(s): Father had a pacemaker. He of pneumonia. Mother Family Medical History: Coronary Artery Disease (CAD), CVA/TIA Medications and Allergies Home Medications Medication Instructions Recorded Confirmed Type Cholecalciferol [Vitamin D3 (25 5,000 unit PO DAILY 02/03/17 03/11/19 History Mcg = 1000 Iu)] Metoprolol Tartrate [Lopressor] 25 mg PO BID 08/08/17 03/11/19 History Losartan Potassium 50 mg PO DAILY 12/30/17 03/11/19 History Montelukast [Singulair] 10 mg PO HS 12/30/17 03/11/19 History QUEtiapine [SEROquel] 50 mg PO HS 01/15/18 03/11/19 History Levothyroxine Sodium [Synthroid] 75 mcg PO DAILY 02/20/18 03/11/19 History Venlafaxine HCl [Effexor XR] 225 mg PO DAILY 02/20/18 03/11/19 History levETIRAcetam [Keppra] 1,500 mg PO BID 02/20/18 03/11/19 History Melatonin 3 mg PO HS 03/11/19 03/11/19 History Ranitidine HCl [Zantac] 150 mg PO DAILY 03/11/19 03/11/19 History Allergies Allergy/AdvReac Type Severity Reaction Status Date / Time No Known Allergies Allergy Verified 03/11/19 18:27 Physical Examination - Vital Signs Vital Signs: Vital Signs Temp Pulse Resp BP Pulse Ox 03/12/19 09:00 73 13 134/70 98 03/12/19 08:00 98.3 F 62 18 121/95 97 03/12/19 07:00 72 14 115/62 96 03/12/19 06:00 74 15 117/64 96 03/12/19 05:00 71 10 L 116/59 97 03/12/19 04:00 98.0 F 69 22 124/89 95 03/12/19 03:00 71 19 134/70 99 03/12/19 02:00 75 17 139/74 99 03/12/19 01:00 97.8 F 72 16 140/83 100 03/12/19 00:00 25 H 03/11/19 23:30 73 25 H 164/96 03/11/19 23:00 75 21 141/78 03/11/19 22:30 73 17 132/98 03/11/19 22:00 77 19 136/79 97 03/11/19 21:30 67 23 135/61 97 03/11/19 21:00 80 21 132/77 100 03/11/19 20:30 81 17 124/75 100 03/11/19 20:00 115/79 03/11/19 19:30 87 11 L 99/76 03/11/19 19:00 98 21 03/11/19 18:30 105 H 20 160/108 03/11/19 18:03 182/103 93 L 03/11/19 17:58 97.9 F 109 H 14 180/103 94 L Intake and Output 03/11/19 03/12/19 03/12/19 22:59 06:59 14:59 Intake Total 700 300 Output Total 1614 1051 Balance -1023 -091 Intake: IV 700 300 Sodium Chloride 0.9% 1, 700 300 000 ml @ 100 mls/hr IV . Q10H [facility] Rx#:[id number] Output: Urine 1725 1050 Stool 1 1 Other: Voiding Method Urinal Urinal # Voids 1 # Bowel Movements 1 Weight 89.358 kg 73.5 kg On examination patient is a middle aged male, in no distress. He is laying comfortably in the bed. Patient answers very vaguely for everything asked, like when I asked for alcoholism, he states "I don't think I drink". On asking if he smokes tobacco states "I don't think I smoke". He could not tell if he is taking medications, which ones. He could be postictal at this time. Patient does not know what month or year is it. States it is 2016. He knows that he lives in [facility]. Could not tell his age, or name of the current president. Patient's speech and language functions are normal. He has evidence of oral trauma with evidence of tongue bite darell on the tip of his tongue. On cranial nerve examination his pupils are round and reacting to light. Visual villarreal are full. Face is symmetric and tongue protrudes the midline. On muscle strength testing there is no pronator drift and the strength is normal in arms and legs distally and proximally. His left hip appears tender than when he tries to lift it actively. Reflexes are symmetric and plantars are downgoing. Sensations are equal. No ataxia. [id number] or [id number] testing. Tone and bulk of muscles normal. Gait deferred Results - Laboratory Findings CBC and BMP: 03/12/19 02:29 03/12/19 02:29 Abnormal Lab Findings: Abnormal Labs 03/11/19 03/11/19 03/11/19 18:21 18:21 18:21 WBC 18.8 H RBC Hgb Hct Neutrophils # 12.5 H VBG pH VBG HCO3 Sodium 135 L Potassium Chloride 96 L Carbon Dioxide 6 L* BUN Glucose 125 H Plasma Lactic Acid Pramod >24.0 H* ALT 19 L Total Protein Albumin 5.2 H 03/11/19 03/11/19 03/11/19 19:40 19:40 19:40 WBC RBC Hgb Hct Neutrophils # VBG pH 7.27 L VBG HCO3 18 L Sodium 128 L Potassium 6.2 H* Chloride 97 L Carbon Dioxide 17 L BUN Glucose 109 H Plasma Lactic Acid Pramod 8.9 H* ALT Total Protein Albumin 03/11/19 03/12/19 03/12/19 22:34 02:29 02:29 WBC 11.3 H RBC 4.15 L Hgb 12.9 L Hct 38.8 L Neutrophils # 8.5 H VBG pH VBG HCO3 Sodium 135 L Potassium Chloride Carbon Dioxide BUN 7 L Glucose Plasma Lactic Acid Pramod 2.9 H* ALT Total Protein 5.8 L Albumin Assessment and Plan Assessment: 63-year-old male with long-standing history of seizure disorder, came with breakthrough seizure, unclear cause. * Seizure disorder, tonic-clonic and complex partial. * Hyponatremia * Memory loss * History of alcoholism and substance abuse in the past * Bipolar disorder * CAD Plan: Patient will be resumed on Keppra 1500 mg twice a day. We will now add Vimpat 50 mg twice a day for seizure control, as patient has had multiple seizures in the past 6 months. Patient's daughter states that he is compliant with medication. Patient has hyponatremia, which could be contributing to the seizure. I would suggest appropriate treatment for hyponatremia. Will check urine drug screen. Patient informed of [place] state law of not driving unless seizure free for 6 months, climbing ladders, operate dangerous machineries or unsupervised swimming.
[2019-03-12] MEDS: levETIRAcetam IV 1,500 MG in SALINE 1 100ML.BAG IVPB SCH ×2 (10:57→20:59)
--- NOTE | 2019-03-12 11:24 | P.CNPUL ---
History of Present Illness Consult date: 03/12/19 Requesting physician: Jone E Paul Reason for consult: other (Seizure) Chief complaint: Seizures History of present illness: This is a 63-year-old white male, known history of seizure disorder for the last 30 years. Patient has history of grand mal seizures and petit mal seizures. Over the last 2 years, the patient has been experiencing breakthrough seizures mostly grand mal seizures. Patient is also known to have history of alcoholism, and seems to be forgetful regarding taking his Keppra medication 1500 mg twice a day. Apparently yesterday the patient had multiple witnessed seizures including petit mal seizures followed by tonic-clonic seizures lasting for 1 minute. EMS gave him 5 mg of Versed prior to arrival, upon arrival to the ER patient was post ictal. He did bite his tongue, but he had no loss of control of the urine. Considering his post ictal phase and the concern about his breakthrough seizures, patient was admitted to the ICU, and I was asked to see him on cons ultation. Patient was already seen by neurology, CT of the head was noted to be normal. Sodium on arrival was low, however follow-up sodium is 135, it was 128 earlier in the ER. CBC was noted to be normal. Since admission, the patient has been seizures free and he was restarted back on Keppra by the neurologist. Patient is a very poor historian. Seems to be quite forgetful and extremely poor memory. Review of Systems ROS unobtainable: due to mental status Past Medical History Past Medical History: Chest Pain / Angina, Heart Failure, COPD, GERD/Reflux, Hypertension, Seizure Disorder, Thyroid Disorder Additional Past Medical History / Comment(s): falls,bronchitis,Memory impairment, legally incapacitated, hypothyroid, small hiatal hernia, diverticulosis History of Any Multi-Drug Resistant Organisms: None Reported Past Surgical History: Hernia Repair, Joint Replacement, Orthopedic Surgery Additional Past Surgical History / Comment(s): 08/2017 EGGD/colonoscopy, prior colonoscopy, umbilical hernia repair, L total knee, R partial knee replacement, R lower leg fracture with ORIF (hardware in place), ERCP, bilateral knee arthroscopies. Past Anesthesia/Blood Transfusion Reactions: No Reported Reaction Past Psychological History: Anxiety, Bipolar, Depression, Schizophrenia Additional Psychological History / Comment(s): Pt resides with his daughter, Pat who is his marine oil terminal superintendent, legal gaurdian. Pt ambulates without device. He do es not drive, daughter takes him to appts. Smoking Status: Current every day smoker Past Alcohol Use History: Occasional Additional Past Alcohol Use History / Comment(s): Pt started smoking in 1971 and is less than a ppd smoker on average. Past Drug Use History: Marijuana Additional Drug Use History / Comment(s): Pt occasionally smokes marijuana. - Past Family History Father Family Medical History: Cancer, Coronary Artery Disease (CAD), Pneumonia Additional Family Medical History / Comment(s): Father had a pacemaker. He of pneumonia. Mother Family Medical History: Coronary Artery Disease (CAD), CVA/TIA Medications and Allergies Home Medications Medication Instructions Recorded Confirmed Type Cholecalciferol [Vitamin D3 (25 5,000 unit PO DAILY 02/03/17 03/11/19 History Mcg = 1000 Iu)] Metoprolol Tartrate [Lopressor] 25 mg PO BID 08/08/17 03/11/19 History Losartan Potassium 50 mg PO DAILY 12/30/17 03/11/19 History Montelukast [Singulair] 10 mg PO HS 12/30/17 03/11/19 History QUEtiapine [SEROquel] 50 mg PO HS 01/15/18 03/11/19 History Levothyroxine Sodium [Synthroid] 75 mcg PO DAILY 02/20/18 03/11/19 History Venlafaxine HCl [Effexor XR] 225 mg PO DAILY 02/20/18 03/11/19 History levETIRAcetam [Keppra] 1,500 mg PO BID 02/20/18 03/11/19 History Melatonin 3 mg PO HS 03/11/19 03/11/19 History Ranitidine HCl [Zantac] 150 mg PO DAILY 03/11/19 03/11/19 History Allergies Allergy/AdvReac Type Severity Reaction Status Date / Time No Known Allergies Allergy Verified 03/11/19 18:27 Physical Exam Vitals: Vital Signs Temp Pulse Resp BP Pulse Ox 03/12/19 09:00 73 13 134/70 98 03/12/19 08:00 98.3 F 62 18 121/95 97 03/12/19 07:00 72 14 115/62 96 03/12/19 06:00 74 15 117/64 96 03/12/19 05:00 71 10 L 116/59 97 03/12/19 04:00 98.0 F 69 22 124/89 95 03/12/19 03:00 71 19 134/70 99 03/12/19 02:00 75 17 139/74 99 03/12/19 01:00 97.8 F 72 16 140/83 100 03/12/19 00:00 25 H 03/11/19 23:30 73 25 H 164/96 03/11/19 23:00 75 21 141/78 03/11/19 22:30 73 17 132/98 03/11/19 22:00 77 19 136/79 97 03/11/19 21:30 67 23 135/61 97 03/11/19 21:00 80 21 132/77 100 03/11/19 20:30 81 17 124/75 100 03/11/19 20:00 115/79 03/11/19 19:30 87 11 L 99/76 03/11/19 19:00 98 21 03/11/19 18:30 105 H 20 160/108 03/11/19 18:03 182/103 93 L 03/11/19 17:58 97.9 F 109 H 14 180/103 94 L Intake and Output 03/11/19 03/12/19 03/12/19 22:59 06:59 14:59 Intake Total 700 300 Output Total 1726 1051 Balance -1026 -751 Intake: IV 700 300 Sodium Chloride 0.9% 1, 700 300 000 ml @ 100 mls/hr IV . Q10H [facility] Rx#:[id number] Output: Urine 1725 1050 Stool 1 1 Other: Voiding Method Urinal Urinal # Voids 1 # Bowel Movements 1 Weight 89.358 kg 73.5 kg Physical Exam: Revealed 63-year-old white male in no distress, in bed on seizu res precautions. Head: Atraumatic, normocephalic. HEENT:[Neck is supple.] [No neck masses.] [No thyromegaly.] [No JVD.] Chest: [Clear throughout, no crackles, no rhonchi, no wheezes.] Cardiac Exam: [Normal S1 and S2, no S3 gallop, no murmur.] Abdomen: [Soft, nontender, no megaly, no rebound, no guarding, normal bowel sounds.] Extremities: [No clubbing, no edema, no cyanosis.] Neurological Exam: Seems to be quite confused, poor memory, poor historian, otherwise no gross focal neurologic deficits. Psychiatric: Normal mood, affect, poor mental status and poor memory/poor recall. Skin: No rashes. Results - Laboratory Findings CBC and BMP: 03/12/19 02:29 03/12/19 02:29 Abnormal lab findings: Abnormal Labs 03/11/19 03/11/19 03/11/19 18:21 18:21 18:21 WBC 18.8 H RBC Hgb Hct Neutrophils # 12.5 H VBG pH VBG HCO3 Sodium 135 L Potassium Chloride 96 L Carbon Dioxide 6 L* BUN Glucose 125 H Plasma Lactic Acid Pramod >24.0 H* ALT 19 L Total Protein Albumin 5.2 H 03/11/19 03/11/19 03/11/19 19:40 19:40 19:40 WBC RBC Hgb Hct Neutrophils # VBG pH 7.27 L VBG HCO3 18 L Sodium 128 L Potassium 6.2 H* Chloride 97 L Carbon Dioxide 17 L BUN Glucose 109 H Plasma Lactic Acid Pramod 8.9 H* ALT Total Protein Albumin 03/11/19 03/12/19 03/12/19 22:34 02:29 02:29 WBC 11.3 H RBC 4.15 L Hgb 12.9 L Hct 38.8 L Neutrophils # 8.5 H VBG pH VBG HCO3 Sodium 135 L Potassium Chloride Carbon Dioxide BUN 7 L Glucose Plasma Lactic Acid Pramod 2.9 H* ALT Total Protein 5.8 L Albumin - Diagnostic Findings Additional studies: Brain CT was unremarkable on admission, no other studies were performed. Assessment and Plan Assessment: Impression: 1 seizure disorder with recurrent episodes of breakthrough seizures with tonic- clonic and complex partial seizures. 2 history of bipolar disorder 3 history of alcoholism and substance abuse in the past. 4 history of underlying coronary artery disease 5 acute electrodes imbalance on presentation with metabolic acidosis, resolved at present. Recommendation: Continue seizure precautions, restarted back on Keppra and on vimpat by neurology on the case, we'll continue to follow his hyponatremia, at this point it is normal but on presentation he had a sodium of 128. Patient could be transferred out of the ICU today, and could be monitored on a regular medical floor. Continue seizure precautions. Will follow as needed. Time with Patient: Greater than 30
[2019-03-12] MEDS: LACOSAMIDE 50 MG TABLET PO SCH ×2 (11:45→20:59)
--- NOTE | 2019-03-12 14:43 | EEG ---
ELECTROENCEPHALOGRAM REPORT DATE OF SERVICE: 03/12/2019 PREAMBLE: This is a 63-year-old male with long-standing history of seizure disorder, came in with breakthrough seizures. This study is performed to evaluate for epileptiform activity. CURRENT MEDICATIONS: Patient takes Keppra 1500 mg b.i.d., lorazepam. EEG FINDINGS: A routine 21 channel awake digital EEG recording was completed utilizing the 10/20 international system with bipolar and referential montages. The background consists of well-developed, but not very well regulated mixed frequency of posterior dominant 7 to 8 hertz alpha, mixed with some 2 to 4 hertz delta and theta activity. Background does not seem to be reactive to eye opening or closing. Different stages of sleep were not seen. Photic driving response was not seen. Hyperventilation was not performed. No focal or generalized epileptiform activity were seen. The study was technically limited due to the presence of excessive myogenic activity throughout the study. IMPRESSION: This is an abnormal EEG due to mild to moderate background slowing. This is suggestive of generalized cerebral dysfunction, as can be seen in toxic metabolic encephalopathies are related to diffuse structural brain abnormality. Clinical correlation is recommended and no epileptiform activity was seen. MMODL / IJN: [id number] / [facility]
--- NOTE | 2019-03-12 17:06 | P.HPIM ---
History of Present Illness Chief Complaint: Seizures 58-year-old gentleman with a past medical history significant for seizures on admission the medications comes in with above-mentioned complaints. The patient the time examination was in the ICU his daughter was there at the bedside who gave most of the history. Patient apparently had seizures since a long time which were fairly well controlled until recently when he started to have breakt hrough seizures. The daughter says that he drinks alcohol occasionally but uses marijuana to help with his mood. And also has been doing cocaine recently. She said that since he started having seizures again he's been losing his memory. Daughter says that he came to the hospital because he had multiple seizures daily for admission. They were initially. Mom which was followed by tonic- clonic seizure lasting for a minute. EMS was thus called and patient was brought to the ER for further urology management. Patient bit his tongue during the seizure. Patient at this time has not had a seizure since admission. He otherwise does not complain of any chest pain or racing heart, no cough, no shortness of breath, no abdominal pain, no nausea and vomiting, no diarrhea constipation, no tingling numbness on his extremities, no itch no rash. ER course-patient's vitals were stable lab work was done which showed WBC 11.3 hemoglobin 12.9 platelets 282 sodium was 11/24/2017 yesterday which is 135 now his potassium was 6.2 yesterday which is 3.9 now his bicarbonate was 17 yesterday which are 22 now his creatinine was 1.06 yesterday which is 0.93 today. He was getting IV fluids yesterday while in the ER. He was admitted to ICU with pulmonology and neurology on board Review of Systems All systems: negative Past Medical History Past Medical History: Chest Pain / Angina, Heart Failure, COPD, GERD/Reflux, Hy pertension, Seizure Disorder, Thyroid Disorder Additional Past Medical History / Comment(s): falls,bronchitis,Memory impairment, legally incapacitated, hypothyroid, small hiatal hernia, diverticulosis History of Any Multi-Drug Resistant Organisms: None Reported Past Surgical History: Hernia Repair, Joint Replacement, Orthopedic Surgery Additional Past Surgical History / Comment(s): 08/2017 EGGD/colonoscopy, prior colonoscopy, umbilical hernia repair, L total knee, R partial knee replacement, R lower leg fracture with ORIF (hardware in place), ERCP, bilateral knee arthroscopies. Past Anesthesia/Blood Transfusion Reactions: No Reported Reaction Past Psychological History: Anxiety, Bipolar, Depression, Schizophrenia Additional Psychological History / Comment(s): Pt resides with his daughter, Pat who is his timber sprinkler, legal gaurdian. Pt ambulates without device. He does not drive, daughter takes him to appts. Smoking Status: Current every day smoker Past Alcohol Use History: Occasional Additional Past Alcohol Use History / Comment(s): Pt started smoking in 1971 and is less than a ppd smoker on average. Past Drug Use History: Marijuana Additional Drug Use History / Comment(s): Pt occasionally smokes marijuana. - Past Family History Father Family Medical History: Cancer, Coronary Artery Disease (CAD), Pneumonia Additional Family Medical History / Comment(s): Father had a pacemaker. He of pneumonia. Mother Family Medical History: Coronary Artery Disease (CAD), CVA/TIA Medications and Allergies Home Medications Medication Instructions Recorded Confirmed Type Cholecalciferol [Vitamin D3 (25 5,000 unit PO DAILY 02/03/17 03/11/19 History Mcg = 1000 Iu)] Metoprolol Tartrate [Lopressor] 25 mg PO BID 08/08/17 03/11/19 History Losartan Potassium 50 mg PO DAILY 12/30/17 03/11/19 History Montelukast [Singulair] 10 mg PO HS 12/30/17 03/11/19 History QUEtiapine [SEROquel] 50 mg PO HS 01/15/18 03/11/19 History Levothyroxine Sodium [Synthroid] 75 mcg PO DAILY 02/20/18 03/11/19 History Venlafaxine HCl [Effexor XR] 225 mg PO DAILY 02/20/18 03/11/19 History levETIRAcetam [Keppra] 1,500 mg PO BID 02/20/18 03/11/19 History Melatonin 3 mg PO HS 03/11/19 03/11/19 History Ranitidine HCl [Zantac] 150 mg PO DAILY 03/11/19 03/11/19 History Allergies Allergy/AdvReac Type Severity Reaction Status Date / Time No Known Allergies Allergy Verified 03/11/19 18:27 Physical Exam Vitals: Vital Signs Temp Pulse Resp BP Pulse Ox 03/12/19 16:00 99.2 F 74 13 146/79 94 L 03/12/19 12:00 98.8 F 68 17 133/87 97 03/12/19 10:00 64 16 123/63 98 03/12/19 09:00 73 13 134/70 98 03/12/19 08:00 98.3 F 62 18 121/95 97 03/12/19 07:00 72 14 115/62 96 03/12/19 06:00 74 15 117/64 96 03/12/19 05:00 71 10 L 116/59 97 03/12/19 04:00 98.0 F 69 22 124/89 95 03/12/19 03:00 71 19 134/70 99 03/12/19 02:00 75 17 139/74 99 03/12/19 01:00 97.8 F 72 16 140/83 100 03/12/19 00:00 25 H 03/11/19 23:30 73 25 H 164/96 03/11/19 23:00 75 21 141/78 03/11/19 22:30 73 17 132/98 03/11/19 22:00 77 19 136/79 97 03/11/19 21:30 67 23 135/61 97 03/11/19 21:00 80 21 132/77 100 03/11/19 20:30 81 17 124/75 100 03/11/19 20:00 115/79 03/11/19 19:30 87 11 L 99/76 03/11/19 19:00 98 21 03/11/19 18:30 105 H 20 160/108 03/11/19 18:03 182/103 93 L 03/11/19 17:58 97.9 F 109 H 14 180/103 94 L Intake and Output 03/12/19 03/12/19 03/12/19 06:59 14:59 22:59 Intake Total 700 800 Output Total 1726 1451 401 Balance -2336 -651 -401 Intake: IV 700 800 Sodium Chloride 0.9% 1, 700 800 000 ml @ 100 mls/hr IV . Q10H [facility] Rx#:[id number] Output: Urine 1725 1450 400 Stool 1 1 1 Other: Voiding Method Urinal Urinal Urinal # Voids 1 1 # Bowel Movements 1 2 Weight 73.5 kg On exam, alert and oriented x3. HEENT: Conjunctivae normal. eyes normal. Patient has bite darell on his tongue NECK: No JVD. No thyroid enlargement. No LNs CARDIOVASCULAR: S1, S2 muffled. No murmur RESPIRATION: Breath sounds diminished in the bases. No rhonchi or crackles. No bronchial breathing. ABDOMEN: Soft, nontender . No guarding. no masses palpable. No ascites, No hepatosplenomegaly.Bowel sounds heard. LEGS: No edema. no swelling NERVOUS SYSTEM: Cranial N 2-12 grossly normal. Moves all 4 limbs. No focal deficits. No sensory deficit. No signs of cerebellar dysfucntion. Skin: no ulcer no rash Joints: No active swelling. No inflammation. Lymphatic system. No LN neck axilla or groin. Results CBC & Chem 7: 03/12/19 02:29 03/12/19 02:29 Labs: Abnormal Lab Results - Last 24 Hours (Table) 03/11/19 03/11/19 03/11/19 Range/Units 18:21 18:21 18:21 WBC 18.8 H (3.8-10.6) k/uL RBC (4.30-5.90) m/uL Hgb (13.0-17.5) gm/dL Hct (39.0-53.0) % Neutrophils # 12.5 H (1.3-7.7) k/uL VBG pH (7.31-7.41) VBG HCO3 (24-28) mmol/L Sodium 135 L (137-145) mmol/L Potassium (3.5-5.1) mmol/L Chloride 96 L (98-107) mmol/L Carbon Dioxide 6 L* (22-30) mmol/L BUN (9-20) mg/dL Glucose 125 H (74-99) mg/dL Plasma Lactic Acid Pramod >24.0 H* (0.7-2.0) mmol/L ALT 19 L (21-72) U/L Total Protein (6.3-8.2) g/dL Albumin 5.2 H (3.5-5.0) g/dL 03/11/19 03/11/19 03/11/19 Range/Units 19:40 19:40 19:40 WBC (3.8-10.6) k/uL RBC (4.30-5.90) m/uL Hgb (13.0-17.5) gm/dL Hct (39.0-53.0) % Neutrophils # (1.3-7.7) k/uL VBG pH 7.27 L (7.31-7.41) VBG HCO3 18 L (24-28) mmol/L Sodium 128 L (137-145) mmol/L Potassium 6.2 H* (3.5-5.1) mmol/L Chloride 97 L (98-107) mmol/L Carbon Dioxide 17 L (22-30) mmol/L BUN (9-20) mg/dL Glucose 109 H (74-99) mg/dL Plasma Lactic Acid Pramod 8.9 H* (0.7-2.0) mmol/L ALT (21-72) U/L Total Protein (6.3-8.2) g/dL Albumin (3.5-5.0) g/dL 03/11/19 03/12/19 03/12/19 Range/Units 22:34 02:29 02:29 WBC 11.3 H (3.8-10.6) k/uL RBC 4.15 L (4.30-5.90) m/uL Hgb 12.9 L (13.0-17.5) gm/dL Hct 38.8 L (39.0-53.0) % Neutrophils # 8.5 H (1.3-7.7) k/uL VBG pH (7.31-7.41) VBG HCO3 (24-28) mmol/L Sodium 135 L (137-145) mmol/L Potassium (3.5-5.1) mmol/L Chloride (98-107) mmol/L Carbon Dioxide (22-30) mmol/L BUN 7 L (9-20) mg/dL Glucose (74-99) mg/dL Plasma Lactic Acid Pramod 2.9 H* (0.7-2.0) mmol/L ALT (21-72) U/L Total Protein 5.8 L (6.3-8.2) g/dL Albumin (3.5-5.0) g/dL Thrombosis Risk Factor Assmnt - Choose All That Apply Any of the Below Risk Factors Present?: No Each Risk Factor Represents 2 Points: Age 61-74 years Other congenital or acquired thrombophilia - If yes, enter type in comment: No Thrombosis Risk Factor Assessment Total Risk Factor Score: 2 Thrombosis Risk Factor Assessment Level: Low Risk Assessment and Plan Assessment: Seizure disorder, tonic-clonic and complex partial. History of bipolar disorder Hyponatremia Hyperkalemia Memory loss History of alcoholism and substance abuse in the past Bipolar disorder CAD Plan - Is admitted to ICU for close monitoring - At this time the patient is added on Vimpat in addition to Keppra. Patient is tolerating medications.. He has not had any seizures since admission - His sodium was also 128 which is up to 135 now. He was probably dehydrated at the time of arrival - His potassium was 6.9 which is down to 3.9. Keep a watch the potassium - We'll continue hydration with 100 mL an hour of IV fluids - Continue seizure precautions - Continue rest of home medications - DVT and GI prophylaxis - We'll order for lab work in the morning - Expected length of stay is more than 2 midnights - Patient is full code Time with Patient: Greater than 30
[2019-03-12] MEDS: METOPROLOL TARTRATE 25 MG TAB PO SCH (20:59)
[2019-03-12] MEDS ORDERED: MELATONIN 3 MG TABLET PO SCH (21:00)
[2019-03-12] MEDS ORDERED: QUEtiapine 50 MG TAB PO SCH (21:00)
[2019-03-12] MEDS ORDERED: MONTELUKAST 10 MG TAB PO SCH (21:00)
[2019-03-13 01:49] LABS: Amphetamine Screen,Urine Not Detected (NotDetected); Barbiturate Screen,Urine Not Detected (NotDetected); Benzodiazepines Screen,Urine Not Detected (NotDetected); Cocaine Screen,Urine Not Detected (NotDetected); Methadone Screen, Urine Not Detected (NotDetected); Opiate Screen,Urine Not Detected (NotDetected); Oxycodone Screen, Urine Not Detected (NotDetected); Phencyclidine Screen,Urine Not Detected (NotDetected); Tricyclic Antidepressant,Urine Detected (NotDetected); Urn Cannabinoid Scrn Detected (NotDetected)
[2019-03-13] MEDS: SODIUM CHLORIDE 0.9% 1,000 ML IV SCH (03:29)
[2019-03-13] MEDS ORDERED: LEVOTHYROXINE 75 MCG TAB PO SCH (06:30)
[2019-03-13] MEDS ORDERED: LOSARTAN 50 MG TAB PO SCH (09:00)
[2019-03-13] MEDS ORDERED: FAMOTIDINE 20 MG TAB PO SCH (09:00)
[2019-03-13] MEDS ORDERED: VENLAFAXINE HCL ER 75 MG CAP PO SCH (09:00)
[2019-03-13] MEDS ORDERED: CHOLECALCIFEROL 1,000 UNIT TAB PO SCH (09:00)
[2019-03-13 09:05] LABS: HCT 37.6 % (39.0-53.0); HGB 12.8 gm/dL (13.0-17.5); MCH 32.2 pg (25.0-35.0); MCHC 34.1 g/dL (31.0-37.0); MCV 94.6 fL (80.0-100.0); Mean Platelet Volume 6.8; Platelet Count 235 k/uL (150-450); RBC 3.98 m/uL (4.30-5.90); RDW 13.8 % (11.5-15.5); WBC 8.3 k/uL (3.8-10.6)
[2019-03-13] MEDS ORDERED: levETIRAcetam 500 MG TAB PO SCH (09:30)
[2019-03-13 09:38] LABS: Anion Gap 5 mmol/L; Blood Urea Nitrogen 7 mg/dL (9-20); Calcium 8.7 mg/dL (8.4-10.2); Carbon Dioxide 25 mmol/L (22-30); Chloride 111 mmol/L (98-107); Glucose 86 mg/dL (74-99); Potassium 4.3 mmol/L (3.5-5.1); Sodium 141 mmol/L (137-145)
[2019-03-13] MEDS: METOPROLOL TARTRATE 25 MG TAB PO SCH (09:50)
[2019-03-13] MEDS: LACOSAMIDE 50 MG TABLET PO SCH (10:23)
--- NOTE | 2019-03-13 11:37 | P.PN ---
Subjective Progress Note Date: 03/13/19 No further seizures reported. Patient still somewhat confused, but his baseline. Patient tolerating Keppra 1500 mg twice a day and Vimpat 50 mg twice a day well. EEG showed background slowing, consistent with encephalopathy. No definitive epileptiform activity was seen. Objective - Vital Signs Vital signs: Vital Signs Temp 97.5 F L 03/13/19 05:00 Pulse 52 L 03/13/19 05:00 Resp 16 03/13/19 05:00 BP 134/64 03/13/19 05:00 Pulse Ox 97 03/13/19 05:00 Intake & Output 03/12/19 03/13/19 03/13/19 18:59 06:59 18:59 Intake Total 800 2020 Output Total 1852 800 Balance -1052 1220 Intake: IV 800 1200 Sodium Chloride 0.9% 1, 800 1200 000 ml @ 100 mls/hr IV . Q10H [facility] Rx#:[id number] Intake, IV Titration 100 Amount levETIRAcetam IV 1,500 mg 100 In Saline 1 100ml.bag @ 400 mls/hr IVPB Q12HR [facility] Rx#:[id number] Oral 720 Output: Urine 1850 800 Stool 2 Other: Voiding Method Urinal Urinal Urinal # Voids 1 2 1 # Bowel Movements 2 1 1 - Exam Patient is somnolent, laying comfortably in the bed. No distress. Speech and language functions normal. Patient has some forgetfulness noted. This is baseline. - Labs CBC & Chem 7: 03/13/19 08:36 03/13/19 08:36 Labs: Abnormal Lab Results - Last 24 Hours (Table) 03/13/19 03/13/19 03/13/19 Range/Units 00:06 08:36 08:36 RBC 3.98 L (4.30-5.90) m/uL Hgb 12.8 L (13.0-17.5) gm/dL Hct 37.6 L (39.0-53.0) % Chloride 111 H (98-107) mmol/L BUN 7 L (9-20) mg/dL U Tricyclic Antidepress Detected H (NotDetected) U Marijuana (THC) Screen Detected H (NotDetected) Assessment and Plan Assessment: 63-year-old male with long-standing history of seizure disorder, came with breakthrough seizure, unclear cause. * Seizure disorder, tonic-clonic and complex partial. * Hyponatremia * Memory loss * History of alcoholism and substance abuse in the past * Bipolar disorder * CAD Plan: Continue Keppra 1500 mg twice a day. Will switch from IV to oral form of Keppra. Continue Vimpat 50 mg twice a day for seizure control, as patient has had multiple seizures in the past 6 months. Patient has hyponatremia, which could be contributing to the seizure. Sodium now is normal 141. Urine drug screen positive for tricyclics and marijuana. The patient clinically stable for discharge. He needs to follow-up with his neurologist as outpatient regarding cognitive impairment. Probably will need further testing, perhaps as an outpatient setting.
[2019-03-13 11:45] VITALS: BP 142/80; PULSE 59; RESP 22; TEMP 98.1
--- NOTE | 2019-03-13 12:09 | P.DS ---
Providers Date of admission: 03/11/19 20:35 Expected date of discharge: 03/13/19 Attending physician: Jone Miller MD Consults: 03/11/19 20:35 Consult Physician Routine Consulting Provider: Hodan Anderson Consult Reason/Comments: ICU management Do you want consulting provider notified?: Already Contacted Consult Physician Routine Consulting Provider: Bere Rueda Consult Reason/Comments: Seizure, prolonged postictal Do you want consulting provider notified?: Yes Primary care physician: [facility] Course: Discharge diagnosis - Seizure disorder, tonic-clonic and complex partial. History of bipolar disorder Hyponatremia Hyperkalemia Memory loss History of alcoholism and substance abuse in the past Bipolar disorder CAD Hosptial course : 58-year-old gentleman with a past medical history significant for seizures on admission the medications comes in with above-mentioned complaints. The patient the time examination was in the ICU his daughter was there at the bedside who gave most of the history. Patient apparently had seizures since a long time which were fairly well controlled until recently when he started to have breakthrough seizures. The daughter says that he drinks alcohol occasionally but uses marijuana to help with his mood. And also has been doing cocaine recently. She said that since he started having seizures again he's been losing his memory. Daughter says that he came to the hospital because he had multiple seizures daily for admission. They were initially. Mom which was followed by tonic-clonic seizure lasting for a minute. EMS was thus called and patient was brought to the ER for further urology management. Patient bit his tongue during the seizure. Patient at this time has not had a seizure since admission. He otherwise does not complain of any chest pain or racing heart, no cough, no shortness of breath, no abdominal pain, no nausea and vomiting, no diarrhea constipation, no tingling numbness on his extremities, no itch no rash. He was seen by neurology and was initially in the ICU for close observation. Neurology adjusted his medication. His Keppra was made regarding 100 twice a day and he was started on Vimpat 50 mg twice a day. On 03/13/2019 Patient's sodium and potassium normalized with fluid resuscitation. Patient was advised to keep up with his fluids. He had no more seizures. He does not complain of any chest pain or racing heart, No headache, loss of vision or blurry vision. On exam, alert and oriented x3. HEENT: Conjunctivae normal. eyes normal. NECK: No JVD. No thyroid enlargement. No LNs CARDIOVASCULAR: S1, S2 muffled. No murmur RESPIRATION: Breath sounds diminished in the bases. No rhonchi or crackles. No bronchial breathing. ABDOMEN: Soft, nontender . No guarding. no masses palpable. No ascites, No hepatosplenomegaly.Bowel sounds heard. LEGS: No edema. no swelling NERVOUS SYSTEM: Cranial N 2-12 grossly normal. Moves all 4 limbs. No focal deficits. No sensory deficit. No signs of cerebellar dysfucntion. Skin: no ulcer no rash Joints: No active swelling. No inflammation. Lymphatic system. No LN neck axilla or groin. Patient will be discharged he was given prescription of Vimpat and Keppra Patient will need to have blood work done on 03/17/2019 before he sees his PCP on March He will need to follow with the primary care doctor at the date stated in the discharge summary He also need to follow-up with his neurology Patient Condition at Discharge: Serious Plan - Discharge Summary Discharge Rx Participant: Yes New Discharge Prescriptions: New Lacosamide [Vimpat] 50 mg PO BID #60 tablet Continue Cholecalciferol [Vitamin D3 (25 Mcg = 1000 Iu)] 5,000 unit PO DAILY Metoprolol Tartrate [Lopressor] 25 mg PO BID Montelukast [Singulair] 10 mg PO HS Losartan Potassium 50 mg PO DAILY QUEtiapine [SEROquel] 50 mg PO HS Venlafaxine HCl [Effexor XR] 225 mg PO DAILY Levothyroxine Sodium [Synthroid] 75 mcg PO DAILY Ranitidine HCl [Zantac] 150 mg PO DAILY Melatonin 3 mg PO HS levETIRAcetam [Keppra] 1,500 mg PO BID #60 Discharge Medication List Cholecalciferol [Vitamin D3 (25 Mcg = 1000 Iu)] 5,000 unit PO DAILY 02/03/17 [History] Metoprolol Tartrate [Lopressor] 25 mg PO BID 08/08/17 [History] Losartan Potassium 50 mg PO DAILY 12/30/17 [History] Montelukast [Singulair] 10 mg PO HS 12/30/17 [History] QUEtiapine [SEROquel] 50 mg PO HS 01/15/18 [History] Levothyroxine Sodium [Synthroid] 75 mcg PO DAILY 02/20/18 [History] Venlafaxine HCl [Effexor XR] 225 mg PO DAILY 02/20/18 [History] Melatonin 3 mg PO HS 03/11/19 [History] Ranitidine HCl [Zantac] 150 mg PO DAILY 03/11/19 [History] Lacosamide [Vimpat] 50 mg PO BID #60 tablet 03/13/19 [Rx] levETIRAcetam [Keppra] 1,500 mg PO BID #60 03/13/19 [Rx] Follow up Appointment(s)/Referral(s): Lucia Kc MD [Primary Care Provider] - 1-2 days Patient Instructions/Handouts: Recurrent Seizures in Adults (DC), Lactic Acidosis (GEN) Activity/Diet/Wound Care/Special Instructions: If you have any further breakthrough seizures, any disorientation, any lightheadedness dizziness, any drowsiness, any headache, loss of vision or blurry vision, any chest pain racing heart, any cough or shortness of breath, any to call 911 and come to the ER immediately Discharge Disposition: HOME SELF-CARE
--- NOTE | 2019-03-17 01:57 | CDI ---
Documentation Clarification Form Date: 03/17/19 From: Fritz Hammond Phone: call to [phone] Admit Date: 03/11/2019 8:35:00 PM Patient Name: Weston Valerio Visit Number: [id number] Discharge Date: 03/13/2019 2:20:00 PM ATTENTION: The Clinical Documentation Specialists (CDI) and [facility] Coding Staff appreciate your assistance in clarifying documentation. Please respond to the clarification below the line at the bottom and electronically sign. The CDI & [facility] Coding staff will review the response and follow-up if needed. Please note: Queries are made part of the Legal Health Record. If you have any questions, please contact the author of this message via ITS. Dr. Bere Rueda Encephalopathy is documented in the 03/13 Progress note As EEG consistent with Encephalopathy. History/Risk Factors:Seizures Clinical Indicators: hyponatremia, hyperkalemia,dehydration EEG:consistent with Encephalopathy. Treatment: Conservative management and IV fluids. In your professional opinion, can you please clarify the specific type of Encephalopathy, if known? Metabolic Encephalopathy Toxic Encephalopathy Encephalopathy, unspecified. Other, please specify Unable to determine This could be related to metabolic from hyponatremia, postictal state from recent seizures, or related to marijuana. MTDD
== END 2019-03-13 14:20 | disposition home or self-care (01) | DRG 100 ==
LOC: EC 17:56 → 2SICU 20:35 → 3NMEDONC 03-12 17:49
PROVIDERS: ADMIT Internal Medicine; ATTEND Internal Medicine
DX: G40.219 Localization-related (focal) (partial) symptomatic epilepsy and epileptic syndromes with complex partial seizures, intractable, without status epilepticus (principal); G93.41 Metabolic encephalopathy; E87.2 Acidosis; E87.1 Hypo-osmolality and hyponatremia; K21.9 Gastro-esophageal reflux disease without esophagitis; J44.9 Chronic obstructive pulmonary disease, unspecified; I50.9 Heart failure, unspecified; E87.5 Hyperkalemia; I11.0 Hypertensive heart disease with heart failure; E03.9 Hypothyroidism, unspecified; K44.9 Diaphragmatic hernia without obstruction or gangrene; Z96.651 Presence of right artificial knee joint; F31.9 Bipolar disorder, unspecified; F41.9 Anxiety disorder, unspecified; F17.200 Nicotine dependence, unspecified, uncomplicated; F10.20 Alcohol dependence, uncomplicated; I25.10 Atherosclerotic heart disease of native coronary artery without angina pectoris; R41.3 Other amnesia; F20.9 Schizophrenia, unspecified; Z82.49 Family history of ischemic heart disease and other diseases of the circulatory system; Z79.899 Other long term (current) drug therapy; Z79.890 Hormone replacement therapy; Z86.19 Personal history of other infectious and parasitic diseases; Z98.890 Other specified postprocedural states; Z80.9 Family history of malignant neoplasm, unspecified; Z83.1 Family history of other infectious and parasitic diseases
CPT/HCPCS: 36415; 70450; 80048; 80053; 80177; 80306; 82803; 83605; 83735; 85025; 85027; 93005; 95816; 96361; 96374; 99285

== ENCOUNTER → 2019-03-28 | Outpatient (CLI) | payer MEDICARE ==
--- NOTE | 2019-03-28 15:55 | US ---
EXAMINATION TYPE: US carotid duplex BILAT DATE OF EXAM: 03/28/2019 COMPARISON: NONE CLINICAL HISTORY: G40 Seizure Disorder; I10 essential hypertension. HTN EXAM MEASUREMENTS: RIGHT: Peak Systolic Velocity (PSV) cm/sec ----- Right CCA: 67.7 ----- Right ICA: 85.5 ----- Right ECA: 92.1 ICA/CCA ratio: 1.3 RIGHT: End Diastole cm/sec ----- Right CCA: 23.2 ----- Right ICA: 37.0 ----- Right ECA: 17.2 LEFT: Peak Systolic Velocity (PSV) cm/sec ----- Left CCA: 62.8 ----- Left ICA: 60.9 ----- Left ECA: 81.4 ICA/CCA ratio: 1.0 LEFT: End Diastole cm/sec ----- Left CCA: 18.2 ----- Left ICA: 25.6 ----- Left ECA: 16.4 VERTEBRALS (direction of flow): Right Vertebral: Antegrade Left Vertebral: Antegrade Rhythm: Normal No significant stenosis seen IMPRESSION: 1. No flow-limiting stenosis. Criteria for Assigning % of Stenosis / Diameter reduction (Estimation based on the indirect measurements of the internal carotid artery velocities (ICA PSV). 1. Normal (no stenosis)=ICA PSV < 125 cm/s: ratio < 2.0: ICA EDV<40 cm/s. 2. Less than 50% stenosis=ICA PSV < 125 cm/s: ratio < 2.0: ICA EDV<40 cm/s. 3. 50 to 69% stenosis=ICA PSV of 125 to 230 cm/s: ration 2.0 ? 4.0: ICA EDV 40-100 cm/s. 4. Greater than 70% stenosis to near occlusion= ICA PSV > 230 cm/s: ratio > 4.0: ICA EDV > 100 cm/s. 5. Near occlusion= ICA PSV velocities may be low or undetectable: variable ratio and ICA EDV. 6. Total occlusion=unable to detect flow.
== END | disposition home or self-care (01) ==
LOC: RADUSWWP 15:24
PROVIDERS: ATTEND Family Medicine
DX: G40.909 Epilepsy, unspecified, not intractable, without status epilepticus (principal); I10 Essential (primary) hypertension; F69 Unspecified disorder of adult personality and behavior
CPT/HCPCS: 93880

== ENCOUNTER → 2019-03-28 | Outpatient (CLI) | payer MEDICARE ==
[2019-03-28 16:54] LABS: HCT 39.8 % (39.0-53.0); MCH 30.7 pg (25.0-35.0); MCHC 32.7 g/dL (31.0-37.0); MCV 93.8 fL (80.0-100.0); Mean Platelet Volume 7.1; Platelet Count 261 k/uL (150-450); RBC 4.24 m/uL (4.30-5.90); RDW 14.1 % (11.5-15.5); WBC 7.5 k/uL (3.8-10.6)
[2019-03-28 23:49] LABS: Albumin 4.2 g/dL (3.80-4.90); Albumin/Globulin Ratio 2.33 (1.60-3.17); Anion Gap 12.2 mmol/L (4.00-12.00); Carbon Dioxide 24.8 mmol/L (21.6-31.8); Globulin 1.8 g/dL (1.6-3.3); Potassium 4.2 mmol/L (3.5-5.5); Total Bilirubin 0.3 mg/dL (0.2-1.2)
[2019-03-28 23:56] LABS: T4, Free (Free Thyroxine) 1.2 ng/dL (0.80-1.80)
== END | disposition home or self-care (01) ==
LOC: LABWHC1 15:44
PROVIDERS: ATTEND Physician Assistant
DX: R56.9 Unspecified convulsions (principal)
CPT/HCPCS: 36415; 80053; 82607; 84439; 84443; 84481; 85027

== ENCOUNTER 2019-07-24 16:43 | Emergency (ER) | payer MEDICARE ==
[2019-07-24 17:00] VITALS: RESP 18
[2019-07-24] MEDS ORDERED: LORazepam 2 MG/ML INJ IV STA (18:38)
[2019-07-24 18:56] LABS: Basophils # (A) 0.1 k/uL (0-0.2); Basophils % (A) 1 %; Eosinophils # (A) 0.2 k/uL (0-0.7); Eosinophils % (A) 2 %; HCT 40.5 % (39.0-53.0); HGB 13.1 gm/dL (13.0-17.5); Lymphocytes # (A) 2.8 k/uL (1.0-4.8); Lymphocytes % (A) 29 %; MCH 30.8 pg (25.0-35.0); MCHC 32.3 g/dL (31.0-37.0); MCV 95.5 fL (80.0-100.0); Mean Platelet Volume 7.6; Monocytes # (A) 0.5 k/uL (0-1.0); Monocytes % (A) 5 %; Neutrophils % (A) 62 %; Platelet Count 284 k/uL (150-450); RBC 4.24 m/uL (4.30-5.90); RDW 13.2 % (11.5-15.5); WBC 9.7 k/uL (3.8-10.6)
[2019-07-24 19:06] LABS: ALT <6 U/L (21-72); AST 23 U/L (17-59); African American GFR (CKD) 70 (>60 ml/min/1.73 sqM); Albumin 4.4 g/dL (3.5-5.0); Alkaline Phosphatase 75 U/L (38-126); Anion Gap 23 mmol/L; Blood Urea Nitrogen 13 mg/dL (9-20); Calcium 9.5 mg/dL (8.4-10.2); Carbon Dioxide 13 mmol/L (22-30); Chloride 102 mmol/L (98-107); Glucose 90 mg/dL (74-99); Potassium 4.5 mmol/L (3.5-5.1); Sodium 138 mmol/L (137-145); Total Bilirubin 0.4 mg/dL (0.2-1.3)
[2019-07-24 19:11] LABS: Appearance,Urine Clear (Clear); Bilirubin,Urine Negative (Negative); Blood,Urine Negative (Negative); Color,Urine Yellow; Glucose,Urine (UA) Negative (Negative); Ketones,Urine Negative (Negative); Leukocyte Esterase,Urine Negative (Negative); Nitrite,Urine Negative (Negative); PH, Urine 5.5 (5.0-8.0); Protein,Urine Trace (Negative); Urobilinogen,Urine <2.0 mg/dL (<2.0)
--- NOTE | 2019-07-24 19:57 | ED ---
Seizure HPI - General Chief Complaint: Seizure Stated Complaint: seizure Time Seen by Provider: 07/24/19 17:00 Source: patient Mode of arrival: EMS Limitations: no limitations, altered mental status - History of Present Illness Initial Comments: The patient is a 63-year-old male with past medical history of seizure disorder who presents to emergency department after he had a seizure. [facility] for a [facility] appointment. The family at bedside does report a history. She states the patient was placed into the room and was not having any complaints. The patient then began humming and started having a full tonic-clonic seizure. It reportedly lasted for a few minutes before it stopped. The patient did not bite his tongue or have any incontinence. EMS was called. They transported him to the hospital. Family states the patient will have a postictal state for up to one hour after his seizures. He has had sei zures for years. States that he was seizure free up until 2017. He then began having several. He sees Dr. Castro. He did have some medication changes. He takes Keppra 1500 mg twice a day as well as Lamictal 200 mg twice a day. The patient is been taking his medications as directed and still continues to have breakthrough seizures. He does see Dr. Castro next month. The patient denies any recent blunt head trauma. No neck pain or stiffness. No fevers or chills. Denies any photophobia or vision changes. He denies any concern for infections. No dehydration. Does report to poor sleep last night. He is supposed to wear oxygen while he sleeps however he did not last night. There was nothing new or different about this seizure. The patient did not sustain any trauma during the seizure and was lowered to the ground by family member. There are no other alleviating, precipitating or modifying factors - Related Data Home Medications Medication Instructions Recorded Confirmed Cholecalciferol [Vitamin D3 (25 5,000 unit PO DAILY 02/03/17 07/24/19 Mcg = 1000 Iu)] Metoprolol Tartrate [Lopressor] 25 mg PO BID 08/08/17 07/24/19 Montelukast [Singulair] 10 mg PO HS 12/30/17 07/24/19 QUEtiapine [SEROquel] 50 mg PO HS 01/15/18 07/24/19 Levothyroxine Sodium [Synthroid] 75 mcg PO DAILY 02/20/18 07/24/19 Venlafaxine HCl [Effexor XR] 225 mg PO DAILY 02/20/18 07/24/19 Melatonin 3 mg PO HS PRN 03/11/19 07/24/19 Ranitidine HCl [Zantac] 150 mg PO BID 03/11/19 07/24/19 Losartan [Cozaar] 25 mg PO DAILY 07/24/19 07/24/19 lamoTRIgine [LaMICtal] 200 mg PO BID 07/24/19 07/24/19 Previous Rx's Medication Instructions Recorded levETIRAcetam [Keppra] 1,500 mg PO BID #60 03/13/19 Allergies Allergy/AdvReac Type Severity Reaction Status Date / Time No Known Allergies Allergy Verified 07/24/19 17:17 Review of Systems ROS Statement: Those systems with pertinent positive or pertinent negative responses have been documented in the HPI. ROS Other: All systems not noted in ROS Statement are negative. Past Medical History Past Medical History: Chest Pain / Angina, Heart Failure, COPD, GERD/Reflux, Hypertension, Seizure Disorder, Thyroid Disorder Additional Past Medical History / Comment(s): falls,bronchitis,Memory impairment, legally incapacitated, hypothyroid, small hiatal hernia, diverticulosis History of Any Multi-Drug Resistant Organisms: None Reported Past Surgical History: Hernia Repair, Joint Replacement, Orthopedic Surgery Additional Past Surgical History / Comment(s): 08/2017 EGGD/colonoscopy, prior colonoscopy, umbilical hernia repair, L total knee, R partial knee replacement, R lower leg fracture with ORIF (hardware in place), ERCP, bilateral knee arthroscopies. Past Anesthesia/Blood Transfusion Reactions: No Reported Reaction Past Psychological History: Anxiety, Bipolar, Depression, Schizophrenia Smoking Status: Current every day smoker Past Alcohol Use History: Occasional Past Drug Use History: Marijuana - Past Family History Father Family Medical History: Cancer, Coronary Artery Disease (CAD), Pneumonia Additional Family Medical History / Comment(s): Father had a pacemaker. He of pneumonia. Mother Family Medical History: Coronary Artery Disease (CAD), CVA/TIA General Exam Limitations: no limitations, altered mental status General appearance: alert, in no apparent distress Head exam: Present: atraumatic, normocephalic, normal inspection Eye exam: Present: normal appearance, PERRL, EOMI. Absent: scleral icterus, conjunctival injection, periorbital swelling ENT exam: Present: normal exam, mucous membranes moist Neck exam: Present: normal inspection. Absent: tenderness, meningismus, lymphadenopathy Respiratory exam: Present: normal lung sounds bilaterally. Absent: respiratory distress, wheezes, rales, rhonchi, stridor Cardiovascular Exam: Present: regular rate, normal rhythm, normal heart sounds. Absent: systolic murmur, diastolic murmur, rubs, gallop, clicks GI/Abdominal exam: Present: soft, normal bowel sounds. Absent: distended, tenderness, guarding, rebound, rigid Extremities exam: Present: normal inspection, full ROM, normal capillary refill. Absent: tenderness, pedal edema, joint swelling, calf tenderness Back exam: Present: normal inspection Neurological exam: Present: alert, oriented X3, CN II-XII intact Psychiatric exam: Present: normal affect, normal mood Skin exam: Present: warm, dry, intact, normal color. Absent: rash Course Vital Signs 07/24/19 07/24/19 07/24/19 16:57 18:30 20:08 Temperature 98.9 F 97.8 F Pulse Rate 87 75 80 Respiratory 18 18 18 Rate Blood Pressure 127/79 102/76 115/75 O2 Sat by Pulse 93 L 93 L 95 Oximetry Medical Decision Making - Medical Decision Making Upon arrival the patient is placed into room 17. He is hooked up to continuous pulse ox and cardiac rehabilitation program director. A thorough history and physical exam was performed. Peripheral IV was established. The patient was given 1 mg of Ativan. I did recommend laboratory studies and a urinalysis. The patient did agree to this. UA shows trace protein. Blood work demonstrates a creatinine of 1.27. I do have a Lamictal and Keppra level pending. The patient hasn't no further seizure activity. He states he feels great at this time like to go home. The patient is instructed follow-up in Dr. Castro. If he has any new or worsening symptoms she should return to the emergency room. The patient was discharged home in stable condition - Lab Data Result diagrams: 07/24/19 17:05 07/24/19 17:05 Lab Results 07/24/19 07/24/19 07/24/19 Range/Units 17:05 17:05 17:05 WBC 9.7 (3.8-10.6) k/uL RBC 4.24 L (4.30-5.90) m/uL Hgb 13.1 (13.0-17.5) gm/dL Hct 40.5 (39.0-53.0) % MCV 95.5 (80.0-100.0) fL MCH 30.8 (25.0-35.0) pg MCHC 32.3 (31.0-37.0) g/dL RDW 13.2 (11.5-15.5) % Plt Count 284 (150-450) k/uL Neutrophils % 62 % Lymphocytes % 29 % Monocytes % 5 % Eosinophils % 2 % Basophils % 1 % Neutrophils # 6.0 (1.3-7.7) k/uL Lymphocytes # 2.8 (1.0-4.8) k/uL Monocytes # 0.5 (0-1.0) k/uL Eosinophils # 0.2 (0-0.7) k/uL Basophils # 0.1 (0-0.2) k/uL Sodium 138 (137-145) mmol/L Potassium 4.5 (3.5-5.1) mmol/L Chloride 102 (98-107) mmol/L Carbon Dioxide 13 L (22-30) mmol/L Anion Gap 23 mmol/L BUN 13 (9-20) mg/dL Creatinine 1.27 H (0.66-1.25) mg/dL Est GFR (CKD-EPI)AfAm 70 (>60 ml/min/1.73 sqM) Est GFR (CKD-EPI)NonAf 61 (>60 ml/min/1.73 sqM) Glucose 90 (74-99) mg/dL Calcium 9.5 (8.4-10.2) mg/dL Total Bilirubin 0.4 (0.2-1.3) mg/dL AST 23 (17-59) U/L ALT <6 L (21-72) U/L Alkaline Phosphatase 75 (38-126) U/L Total Protein 7.0 (6.3-8.2) g/dL Albumin 4.4 (3.5-5.0) g/dL Urine Color Urine Appearance (Clear) Urine pH (5.0-8.0) Ur Specific Huddy (1.001-1.035) Urine Protein (Negative) Urine Glucose (UA) (Negative) Urine Ketones (Negative) Urine Blood (Negative) Urine Nitrite (Negative) Urine Bilirubin (Negative) Urine Urobilinogen (<2.0) mg/dL Ur Leukocyte Esterase (Negative) Lamotrigine 3.6 (2.0-15.0) ug/mL Levetiracetam 34.8 (3.0-60.0) ug/mL 07/24/19 Range/Units 19:00 WBC (3.8-10.6) k/uL RBC (4.30-5.90) m/uL Hgb (13.0-17.5) gm/dL Hct (39.0-53.0) % MCV (80.0-100.0) fL MCH (25.0-35.0) pg MCHC (31.0-37.0) g/dL RDW (11.5-15.5) % Plt Count (150-450) k/uL Neutrophils % % Lymphocytes % % Monocytes % % Eosinophils % % Basophils % % Neutrophils # (1.3-7.7) k/uL Lymphocytes # (1.0-4.8) k/uL Monocytes # (0-1.0) k/uL Eosinophils # (0-0.7) k/uL Basophils # (0-0.2) k/uL Sodium (137-145) mmol/L Potassium (3.5-5.1) mmol/L Chloride (98-107) mmol/L Carbon Dioxide (22-30) mmol/L Anion Gap mmol/L BUN (9-20) mg/dL Creatinine (0.66-1.25) mg/dL Est GFR (CKD-EPI)AfAm (>60 ml/min/1.73 sqM) Est GFR (CKD-EPI)NonAf (>60 ml/min/1.73 sqM) Glucose (74-99) mg/dL Calcium (8.4-10.2) mg/dL Total Bilirubin (0.2-1.3) mg/dL AST (17-59) U/L ALT (21-72) U/L Alkaline Phosphatase (38-126) U/L Total Protein (6.3-8.2) g/dL Albumin (3.5-5.0) g/dL Urine Color Yellow Urine Appearance Clear (Clear) Urine pH 5.5 (5.0-8.0) Ur Specific Huddy 1.010 (1.001-1.035) Urine Protein Trace H (Negative) Urine Glucose (UA) Negative (Negative) Urine Ketones Negative (Negative) Urine Blood Negative (Negative) Urine Nitrite Negative (Negative) Urine Bilirubin Negative (Negative) Urine Urobilinogen <2.0 (<2.0) mg/dL Ur Leukocyte Esterase Negative (Negative) Lamotrigine (2.0-15.0) ug/mL Levetiracetam (3.0-60.0) ug/mL - EKG Data EKG Comments: EKG demonstrates normal sinus rhythm with ventricular rate 69. NC interval 176. QRS 120. QTC 456. No acute ST segment elevations or depressions concerning for ischemic changes Disposition Clinical Impression: Breakthrough seizure Disposition: HOME SELF-CARE Condition: Stable Instructions (If sedation given, give patient instructions): Recurrent Seizures in Adults (ED) Additional Instructions: Please follow-up with your neurologist within 1 week. Please see your primary care doctor within 2-4 days. Return to the emergency department for any new or worsening symptoms Is patient prescribed a controlled substance at d/c from ED?: No Referrals: Lucia Kc MD [Primary Care Provider] - 1-2 days Time of Disposition: 19:57
[2019-07-24 20:10] VITALS: BP 115/75; PULSE 80; TEMP 97.8
[2019-07-26 12:19] LABS: Levetiracetam (Keppra) 34.8 ug/mL (3.0-60.0)
[2019-07-28 08:21] LABS: Lamotrigine (Lamictal) 3.6 ug/mL (2.0-15.0)
== END 2019-07-24 20:09 | disposition home or self-care (01) ==
LOC: EC 16:43
DX: G40.909 Epilepsy, unspecified, not intractable, without status epilepticus (principal); I11.0 Hypertensive heart disease with heart failure; I50.9 Heart failure, unspecified; J44.9 Chronic obstructive pulmonary disease, unspecified; K21.9 Gastro-esophageal reflux disease without esophagitis; E03.9 Hypothyroidism, unspecified; F32.9 Major depressive disorder, single episode, unspecified; F41.9 Anxiety disorder, unspecified; F20.9 Schizophrenia, unspecified; F17.200 Nicotine dependence, unspecified, uncomplicated; Z96.653 Presence of artificial knee joint, bilateral; Z79.890 Hormone replacement therapy; Z79.899 Other long term (current) drug therapy
CPT/HCPCS: 36415; 93005; 80053; 80175; 80177; 85025; 81003; 99284; 96374; J2060

== ENCOUNTER 2019-08-04 16:40 | Emergency (ER) | payer MEDICARE ==
[2019-08-04 17:12] VITALS: RESP 20
[2019-08-04] MEDS ORDERED: SODIUM CHLORIDE 0.9% 1,000 ML IV STA ×2 (17:35)
[2019-08-04 18:01] LABS: Basophils # (A) 0.1 k/uL (0-0.2); Basophils % (A) 0 %; Eosinophils # (A) 0.2 k/uL (0-0.7); Eosinophils % (A) 1 %; HCT 38.9 % (39.0-53.0); HGB 13.8 gm/dL (13.0-17.5); Lymphocytes % (A) 5 %; MCH 32.5 pg (25.0-35.0); MCHC 35.4 g/dL (31.0-37.0); MCV 91.7 fL (80.0-100.0); Monocytes # (A) 0.9 k/uL (0-1.0); Monocytes % (A) 4 %; Neutrophils # (A) 19.6 k/uL (1.3-7.7); Neutrophils % (A) 90 %; Platelet Count 311 k/uL (150-450); RBC 4.24 m/uL (4.30-5.90); RDW 12.6 % (11.5-15.5); WBC 21.9 k/uL (3.8-10.6)
[2019-08-04 18:09] LABS: INR 0.9 (<1.2); Partial Thromboplastin Time 22.1 sec (22.0-30.0); Prothrombin Time 10.2 sec (9.0-12.0)
[2019-08-04 18:11] LABS: Albumin 4.5 g/dL (3.5-5.0); Calcium 9.3 mg/dL (8.4-10.2); Potassium 4.6 mmol/L (3.5-5.1); Total Bilirubin 0.5 mg/dL (0.2-1.3); Total Protein 7.2 g/dL (6.3-8.2)
--- NOTE | 2019-08-04 18:37 | CT ---
EXAMINATION TYPE: CT brain wo con for TPA DATE OF EXAM: 08/04/2019 COMPARISON: 03/11/2019 HISTORY: Neuro deficits, seizure. PT hx seizure CT DLP: 1158.4 mGycm Automated exposure control for dose reduction was used. FINDINGS: Ventricles have normal size. There is no mass effect nor midline shift. There is no sign of intracran ial hemorrhage. The calvarium is intact. I see no evidence of cortical infarct. There is no evidence of cerebral edema. IMPRESSION: NEGATIVE CT SCAN OF THE BRAIN. NO CHANGE.
--- NOTE | 2019-08-04 18:38 | XR ---
EXAMINATION TYPE: XR chest 2V DATE OF EXAM: 08/04/2019 COMPARISON: 08/29/2018 HISTORY: Seizure. Chest pain TECHNIQUE: Frontal and lateral views of the chest are obtained. FINDINGS: Heart and mediastinum are normal. Lungs are clear. Costophrenic angles are clear. There ar e no hilar masses. There are chest leads. IMPRESSION: No active cardiopulmonary disease. No change.
--- NOTE | 2019-08-04 18:56 | ED ---
Seizure HPI - General Chief Complaint: Seizure Stated Complaint: Seizure Time Seen by Provider: 08/04/19 17:06 Source: family, EMS, RN notes reviewed, old records reviewed Mode of arrival: EMS Limitations: physical limitation - History of Present Illness Initial Comments: Is a 63-year-old male who presents emergency department today with chief complaint of like seizure-like activity. Patient had an unwitnessed seizure for unknown amount time and then came out of it. Then when patient's daughter came home after her children he had a second seizure which lasted greater than 10 minutes. They called EMS and he was given IM Versed as well as IV Versed in total of 10 mg. Ears emergency department postictal. He also states he is unable to move his left side since the seizure. Family reports that on the second seizure he did not hit his head. He is on any blood thinners. Has a known history of seizure disorder and currently takes Lamictal and Keppra. He takes his medications faithfully. He had a seizure on July 24. He states that after that time he did follow with his neurology Dr. Castro. They maintained his current medications as of this time. Patient complains of feeling warm as well and generally fatigued. - Related Data Home Medications Medication Instructions Recorded Confirmed Cholecalciferol [Vitamin D3 (25 5,000 unit PO DAILY 02/03/17 08/04/19 Mcg = 1000 Iu)] Metoprolol Tartrate [Lopressor] 25 mg PO BID 08/08/17 08/04/19 Montelukast [Singulair] 10 mg PO HS 12/30/17 08/04/19 QUEtiapine [SEROquel] 50 mg PO HS 01/15/18 08/04/19 Levothyroxine Sodium [Synthroid] 75 mcg PO DAILY 02/20/18 08/04/19 Venlafaxine HCl [Effexor XR] 225 mg PO DAILY 02/20/18 08/04/19 Melatonin 3 mg PO HS PRN 03/11/19 08/04/19 Ranitidine HCl [Zantac] 150 mg PO BID 03/11/19 08/04/19 Losartan [Cozaar] 25 mg PO DAILY 07/24/19 08/04/19 lamoTRIgine [LaMICtal] 200 mg PO BID 09/19/19 09/30/19 Previous Rx's Medication Instructions Recorded levETIRAcetam [Keppra] 1,500 mg PO BID #60 03/13/19 Allergies Allergy/AdvReac Type Severity Reaction Status Date / Time No Known Allergies Allergy Verified 08/04/19 17:08 Review of Systems ROS Statement: Those systems with pertinent positive or pertinent negative responses have been documented in the HPI. ROS Other: All systems not noted in ROS Statement are negative. Past Medical History Past Medical History: Chest Pain / Angina, Heart Failure, COPD, GERD/Reflux, Hypertension, Seizure Disorder, Thyroid Disorder Additional Past Medical History / Comment(s): falls,bronchitis,Memory impairment, legally incapacitated, hypothyroid, small hiatal hernia, diverticulosis History of Any Multi-Drug Resistant Organisms: None Reported Past Surgical History: Hernia Repair, Joint Replacement, Orthopedic Surgery Additional Past Surgical History / Comment(s): 08/2017 EGGD/colonoscopy, prior colonoscopy, umbilical hernia repair, L total knee, R partial knee replacement, R lower leg fracture with ORIF (hardware in place), ERCP, bilateral knee arthroscopies. Past Anesthesia/Blood Transfusion Reactions: No Reported Reaction Past Psychological History: Anxiety, Bipolar, Depression, Schizophrenia Smoking Status: Current every day smoker Past Alcohol Use History: Occasional Past Drug Use History: Marijuana - Past Family History Father Family Medical History: Cancer, Coronary Artery Disease (CAD), Pneumonia Additional Family Medical History / Comment(s): Father had a pacemaker. He of pneumonia. Mother Family Medical History: Coronary Artery Disease (CAD), CVA/TIA General Exam - General Exam Comments Initial Comments: His is a 63-year-old male. Alert and oriented 3. He is very groggy and sleepy. Easily arousable both conversation. Limitations: physical limitation General appearance: alert, in no apparent distress Head exam: Present: atraumatic, normocephalic, normal inspection Eye exam: Present: normal appearance, PERRL, EOMI. Absent: scleral icterus, conjunctival injection, periorbital swelling ENT exam: Present: normal exam, mucous membranes moist Neck exam: Present: normal inspection. Absent: tenderness, meningismus, lymphadenopathy Respiratory exam: Present: normal lung sounds bilaterally. Absent: respiratory distress, wheezes, rales, rhonchi, stridor Cardiovascular Exam: Present: regular rate, normal rhythm, normal heart sounds. Absent: systolic murmur, diastolic murmur, rubs, gallop, clicks GI/Abdominal exam: Present: soft, normal bowel sounds. Absent: distended, tenderness, guarding, rebound, rigid Extremities exam: Present: normal inspection, full ROM, normal capillary refill. 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 Absent: rash Course Vital Signs 08/04/19 08/04/19 08/04/19 17:06 18:26 19:30 Temperature 98.0 F Pulse Rate 100 62 65 Respiratory 20 20 20 Rate Blood Pressure 108/71 112/72 124/79 O2 Sat by Pulse 100 99 99 Oximetry 08/04/19 20:25 Temperature Pulse Rate 87 Respiratory 20 Rate Blood Pressure 127/72 O2 Sat by Pulse 96 Oximetry Medical Decision Making - Medical Decision Making 8-year-old male presented today after 10 minutes of tonic-clonic seizure-like episode. At times emergency department postictal. He does some left sided paralysis concern for Zachary's paralysis post seizure. This time and full workup including CT of the brain. This is negative for any acute process. Lab work was reviewed. Evidence of leukocytosis most likely related to seizure activity. Was given 2 L bolus. After he was ER He Became Back to His Normal Mental Status and Had No Further Paralysis of His Left Side. He Had No Neurological Deficits. I Discussed Case with Dr. Fuchs.. On Evaluation Patient Can Be Discharged Home with Follow-Up with His Neurologist Dr. Castro. - Lab Data Result diagrams: 08/04/19 17:55 08/04/19 17:55 Lab Results 08/04/19 08/04/19 08/04/19 Range/Units 17:55 17:55 17:55 WBC 21.9 H (3.8-10.6) k/uL RBC 4.24 L (4.30-5.90) m/uL Hgb 13.8 (13.0-17.5) gm/dL Hct 38.9 L (39.0-53.0) % MCV 91.7 (80.0-100.0) fL MCH 32.5 (25.0-35.0) pg MCHC 35.4 (31.0-37.0) g/dL RDW 12.6 (11.5-15.5) % Plt Count 311 (150-450) k/uL Neutrophils % 90 % Lymphocytes % 5 % Monocytes % 4 % Eosinophils % 1 % Basophils % 0 % Neutrophils # 19.6 H (1.3-7.7) k/uL Lymphocytes # 1.0 (1.0-4.8) k/uL Monocytes # 0.9 (0-1.0) k/uL Eosinophils # 0.2 (0-0.7) k/uL Basophils # 0.1 (0-0.2) k/uL PT 10.2 (9.0-12.0) sec INR 0.9 (<1.2) APTT 22.1 (22.0-30.0) sec Sodium 134 L (137-145) mmol/L Potassium 4.6 (3.5-5.1) mmol/L Chloride 100 (98-107) mmol/L Carbon Dioxide 13 L (22-30) mmol/L Anion Gap 21 mmol/L BUN 26 H (9-20) mg/dL Creatinine 1.54 H (0.66-1.25) mg/dL Est GFR (CKD-EPI)AfAm 56 (>60 ml/min/1.73 sqM) Est GFR (CKD-EPI)NonAf 48 (>60 ml/min/1.73 sqM) Glucose 113 H (74-99) mg/dL Calcium 9.3 (8.4-10.2) mg/dL Total Bilirubin 0.5 (0.2-1.3) mg/dL AST 27 (17-59) U/L ALT 12 L (21-72) U/L Alkaline Phosphatase 60 (38-126) U/L Troponin I (0.000-0.034) ng/mL Total Protein 7.2 (6.3-8.2) g/dL Albumin 4.5 (3.5-5.0) g/dL Urine Color Urine Appearance (Clear) Urine pH (5.0-8.0) Ur Specific [place] (1.001-1.035) Urine Protein (Negative) Urine Glucose (UA) (Negative) Urine Ketones (Negative) Urine Blood (Negative) Urine Nitrite (Negative) Urine Bilirubin (Negative) Urine Urobilinogen (<2.0) mg/dL Ur Leukocyte Esterase (Negative) Urine RBC (0-5) /hpf Urine WBC (0-5) /hpf Ur Squamous Epith Cells (0-4) /hpf Hyaline Casts (0-2) /lpf Granular Casts (0) /lpf Urine Mucus (None) /hpf Urine Opiates Screen (NotDetected) Ur Oxycodone Screen (NotDetected) Urine Methadone Screen (NotDetected) Ur Propoxyphene Screen (NotDetected) Ur Barbiturates Screen (NotDetected) U Tricyclic Antidepress (NotDetected) Ur Phencyclidine Scrn (NotDetected) Ur Amphetamines Screen (NotDetected) U Methamphetamines Scrn (NotDetected) U Benzodiazepines Scrn (NotDetected) Urine Cocaine Screen (NotDetected) U Marijuana (THC) Screen (NotDetected) 08/04/19 08/04/19 Range/Units 17:55 19:30 WBC (3.8-10.6) k/uL RBC (4.30-5.90) m/uL Hgb (13.0-17.5) gm/dL Hct (39.0-53.0) % MCV (80.0-100.0) fL MCH (25.0-35.0) pg MCHC (31.0-37.0) g/dL RDW (11.5-15.5) % Plt Count (150-450) k/uL Neutrophils % % Lymphocytes % % Monocytes % % Eosinophils % % Basophils % % Neutrophils # (1.3-7.7) k/uL Lymphocytes # (1.0-4.8) k/uL Monocytes # (0-1.0) k/uL Eosinophils # (0-0.7) k/uL Basophils # (0-0.2) k/uL PT (9.0-12.0) sec INR (<1.2) APTT (22.0-30.0) sec Sodium (137-145) mmol/L Potassium (3.5-5.1) mmol/L Chloride (98-107) mmol/L Carbon Dioxide (22-30) mmol/L Anion Gap mmol/L BUN (9-20) mg/dL Creatinine (0.66-1.25) mg/dL Est GFR (CKD-EPI)AfAm (>60 ml/min/1.73 sqM) Est GFR (CKD-EPI)NonAf (>60 ml/min/1.73 sqM) Glucose (74-99) mg/dL Calcium (8.4-10.2) mg/dL Total Bilirubin (0.2-1.3) mg/dL AST (17-59) U/L ALT (21-72) U/L Alkaline Phosphatase (38-126) U/L Troponin I <0.012 (0.000-0.034) ng/mL Total Protein (6.3-8.2) g/dL Albumin (3.5-5.0) g/dL Urine Color Yellow Urine Appearance Clear (Clear) Urine pH 5.0 (5.0-8.0) Ur Specific [place] 1.011 (1.001-1.035) Urine Protein 1+ H (Negative) Urine Glucose (UA) Negative (Negative) Urine Ketones Negative (Negative) Urine Blood Trace H (Negative) Urine Nitrite Negative (Negative) Urine Bilirubin Negative (Negative) Urine Urobilinogen <2.0 (<2.0) mg/dL Ur Leukocyte Esterase Negative (Negative) Urine RBC 1 (0-5) /hpf Urine WBC 2 (0-5) /hpf Ur Squamous Epith Cells <1 (0-4) /hpf Hyaline Casts 1 (0-2) /lpf Granular Casts 8 (0) /lpf Urine Mucus Rare H (None) /hpf Urine Opiates Screen Not Detected (NotDetected) Ur Oxycodone Screen Not Detected (NotDetected) Urine Methadone Screen Not Detected (NotDetected) Ur Propoxyphene Screen Not Detected (NotDetected) Ur Barbiturates Screen Not Detected (NotDetected) U Tricyclic Antidepress Not Detected (NotDetected) Ur Phencyclidine Scrn Not Detected (NotDetected) Ur Amphetamines Screen Not Detected (NotDetected) U Methamphetamines Scrn Not Detected (NotDetected) U Benzodiazepines Scrn Not Detected (NotDetected) Urine Cocaine Screen Not Detected (NotDetected) U Marijuana (THC) Screen Detected H (NotDetected) 08/04/19 18:58 EKG performed at 1848 shows normal sinus rhythm incomplete right bundle-branch block. Borderline EKG. Ventricular rate of 81 bpm. Was 194 ms. QS duration is 110 ms. QT QTc is 412/478 ms. - Radiology Data Radiology results: report reviewed Chest x-ray is negative for any acute cardiac coronary disease. computed tomography scan of the brain. No changes. Disposition Clinical Impression: Seizure, Leukocytosis, Epileptic seizure, generalized Disposition: ADMITTED IP TO THIS [facility] Condition: Stable Instructions (If sedation given, give patient instructions): Recurrent Seizures in Adults (ED) Additional Instructions: Patient advised to continue medications as prescribed. Follow-up with primary care doctor and neurology. Is patient prescribed a controlled substance at d/c from ED?: No Referrals: Lucia Kc MD [Primary Care Provider] - 1-2 days Time of Disposition: 21:22
[2019-08-04 19:57] LABS: Appearance,Urine Clear (Clear); Bilirubin,Urine Negative (Negative); Blood,Urine Trace (Negative); Color,Urine Yellow; Glucose,Urine (UA) Negative (Negative); Granular Casts,Urine 8 /lpf (0); Hyaline Casts,Urine 1 /lpf (0-2); Ketones,Urine Negative (Negative); Leukocyte Esterase,Urine Negative (Negative); Mucus,Urine Rare /hpf; Nitrite,Urine Negative (Negative); Protein,Urine 1+ (Negative); RBC,Urine 1 /hpf (0-5); Specific Gravity,Urine 1.011 (1.001-1.035); Squamous Epithelial Cell,Urine <1 /hpf (0-4); Urobilinogen,Urine <2.0 mg/dL (<2.0); WBC,Urine 2 /hpf (0-5)
[2019-08-04 20:06] LABS: Amphetamine Screen,Urine Not Detected (NotDetected); Barbiturate Screen,Urine Not Detected (NotDetected); Benzodiazepines Screen,Urine Not Detected (NotDetected); Cocaine Screen,Urine Not Detected (NotDetected); Methadone Screen, Urine Not Detected (NotDetected); Opiate Screen,Urine Not Detected (NotDetected); Oxycodone Screen, Urine Not Detected (NotDetected); Phencyclidine Screen,Urine Not Detected (NotDetected); Tricyclic Antidepressant,Urine Not Detected (NotDetected); Urn Cannabinoid Scrn Detected (NotDetected)
[2019-08-04] MEDS ORDERED: KETOROLAC 30 MG/ML 1 ML VIAL IVP STA (21:06)
[2019-08-04 23:32] VITALS: BP 118/60; PULSE 72; TEMP 98.9
[2019-08-05 09:29] LABS: Levetiracetam (Keppra) 19.7 ug/mL (3.0-60.0)
[2019-08-05 10:18] LABS: Lamotrigine (Lamictal) 3.1 ug/mL (2.0-15.0)
== END 2019-08-04 23:30 | disposition home or self-care (01) ==
LOC: EC 16:40
DX: G40.409 Other generalized epilepsy and epileptic syndromes, not intractable, without status epilepticus (principal); D72.829 Elevated white blood cell count, unspecified; G81.94 Hemiplegia, unspecified affecting left nondominant side; I11.0 Hypertensive heart disease with heart failure; I50.9 Heart failure, unspecified; J44.9 Chronic obstructive pulmonary disease, unspecified; K21.9 Gastro-esophageal reflux disease without esophagitis; E03.9 Hypothyroidism, unspecified; F41.9 Anxiety disorder, unspecified; F32.9 Major depressive disorder, single episode, unspecified; F20.9 Schizophrenia, unspecified; F17.200 Nicotine dependence, unspecified, uncomplicated; Z96.653 Presence of artificial knee joint, bilateral; Z79.890 Hormone replacement therapy; Z79.899 Other long term (current) drug therapy
CPT/HCPCS: 99285 ×2; 96374 ×2; 96361 ×6; 36415; 93005; 80053; 80175; 80177; 84484; 85025; 85610; 85730; 81001; 80306; 71046; 70450; J1885

== ENCOUNTER → 2019-11-21 | Outpatient (CLI) | payer MEDICARE ==
[2019-11-21 15:11] LABS: Appearance,Urine Clear (Clear); Bilirubin,Urine Negative (Negative); Blood,Urine Negative (Negative); Color,Urine Light Yellow; Glucose,Urine (UA) Negative (Negative); Ketones,Urine Negative (Negative); Leukocyte Esterase,Urine Negative (Negative); Nitrite,Urine Negative (Negative); Protein,Urine Negative (Negative); Specific Gravity,Urine 1.008 (1.001-1.035); Urobilinogen,Urine <2.0 mg/dL (<2.0)
[2019-11-21 15:13] LABS: HGB 13.6 gm/dL (13.0-17.5); MCH 32.1 pg (25.0-35.0); MCHC 34.1 g/dL (31.0-37.0); MCV 94.2 fL (80.0-100.0); Platelet Count 253 k/uL (150-450); RBC 4.24 m/uL (4.30-5.90); RDW 12.8 % (11.5-15.5)
[2019-11-21 20:44] LABS: % Iron Saturation 76.33 (15.00-50.00); African American GFR (CKD) 82.9 (60.0-200.0); Albumin 4.3 g/dL (3.80-4.90); Albumin/Globulin Ratio 2.53 (1.60-3.17); Anion Gap 9.2 mmol/L (4.00-12.00); BUN/Creat Ratio 19.09 Ratio (12.00-20.00); Calcium 8.5 mg/dL (8.7-10.3); Carbon Dioxide 22.8 mmol/L (21.6-31.8); Globulin 1.7 g/dL (1.6-3.3); Non-African American GFR(CKD) 71.6 (60.0-200.0); Phosphorus 3.6 mg/dL (2.4-5.1); Potassium 4.7 mmol/L (3.5-5.5); Total Bilirubin 0.5 mg/dL (0.3-1.2); Uric Acid 5.8 mg/dL (3.7-8.7)
[2019-11-21 20:57] LABS: Ferritin 65.6 ng/mL (22.0-322.0)
== END | disposition home or self-care (01) ==
LOC: LABWHC1 14:06
PROVIDERS: ATTEND Internal Medicine
DX: N17.9 Acute kidney failure, unspecified (principal); E21.3 Hyperparathyroidism, unspecified; D64.9 Anemia, unspecified; M10.9 Gout, unspecified; E55.9 Vitamin D deficiency, unspecified
CPT/HCPCS: 36415; 80053; 81003; 82306; 82728; 83540; 83550; 83735; 83970; 84100; 84550; 85027

== ENCOUNTER 2019-11-25 19:02 | Inpatient (IN) | payer MEDICARE ==
--- NOTE | 2019-11-25 19:17 | ED ---
General Adult HPI - General Chief complaint: Seizure Stated complaint: Seizure Time Seen by Provider: 11/25/19 19:04 Source: EMS, RN notes reviewed Mode of arrival: EMS Limitations: altered mental status, physical limitation - History of Present Illness Initial comments: Patient is a pleasant 64-year-old male presenting to the emergency department following reported seizure. EMS reports patient had 2 partial seizures prior to their arrival. They did witness a partial seizure lasting 30-45 seconds then a generalized tonic-clonic seizure lasting 45-60 seconds. Patient is unresponsive at this time and unable to provide further history. Patient does have history of previous seizures. No reported recent illness. - Related Data Home Medications Medication Instructions Recorded Confirmed Metoprolol Tartrate [Lopressor] 25 mg PO BID 08/08/17 11/25/19 Montelukast [Singulair] 10 mg PO HS 12/30/17 11/25/19 QUEtiapine [SEROquel] 50 mg PO HS 01/15/18 11/25/19 Levothyroxine Sodium [Synthroid] 75 mcg PO DAILY 02/20/18 11/25/19 Venlafaxine HCl [Effexor XR] 225 mg PO DAILY 02/20/18 11/25/19 lamoTRIgine [LaMICtal] 200 mg PO BID 07/24/19 11/25/19 Famotidine 20 mg PO HS 11/25/19 11/25/19 Previous Rx's Medication Instructions Recorded levETIRAcetam [Keppra] 1,500 mg PO BID #60 03/13/19 Allergies Allergy/AdvReac Type Severity Reaction Status Date / Time No Known Allergies Allergy Verified 11/25/19 19:44 Review of Systems ROS Statement: Those systems with pertinent positive or pertinent negative responses have been documented in the HPI. ROS Other: All systems not noted in ROS Statement are negative. Limitations: ROS unobtainable due to patients medical condition Past Medical History Past Medical History: Chest Pain / Angina, Heart Failure, COPD, GERD/Reflux, Hypertension, Seizure Disorder, Thyroid Disorder Additional Past Medical History / Comment(s): falls,bronchitis,Memory impairment, legally incapacitated, hypothyroid, small hiatal hernia, diverticulosis History of Any Multi-Drug Resistant Organisms: None Reported Past Surgical History: Hernia Repair, Joint Replacement, Orthopedic Surgery Additional Past Surgical History / Comment(s): 08/2017 EGGD/colonoscopy, prior colonoscopy, umbilical hernia repair, L total knee, R partial knee replacement, R lower leg fracture with ORIF (hardware in place), ERCP, bilateral knee arthroscopies. Past Anesthesia/Blood Transfusion Reactions: No Reported Reaction Past Psychological History: Anxiety, Bipolar, Depression, Schizophrenia Smoking Status: Current every day smoker Past Alcohol Use History: Occasional Past Drug Use History: Marijuana - Past Family History Father Family Medical History: Cancer, Coronary Artery Disease (CAD), Pneumonia Additional Family Medical History / Comment(s): Father had a pacemaker. He of pneumonia. Mother Family Medical History: Coronary Artery Disease (CAD), CVA/TIA General Exam Limitations: no limitations General appearance: other (Postictal) Head exam: Present: normocephalic Eye exam: Present: normal appearance, PERRL ENT exam: Present: normal oropharynx, other (Limited gag reflex on original exam however repeat exam patient does have a gag reflex) Neck exam: Present: normal inspection Respiratory exam: Present: normal lung sounds bilaterally Cardiovascular Exam: Present: tachycardia GI/Abdominal exam: Present: soft. Absent: tenderness Extremities exam: Present: normal inspection Expanded Neurological exam: Present: protecting the airway Eye Response: (2) open to pain Motor Response: (4) withdraws to pain Verbal Response: (1) no verbal response Psychiatric exam: Present: other (Nonverbal) Skin exam: Present: normal color Course Vital Signs 11/25/19 11/25/19 19:04 19:46 Temperature 98 F Pulse Rate 111 H 101 H Respiratory 14 19 Rate Blood Pressure 141/92 119/77 O2 Sat by Pulse 98 95 Oximetry - Reevaluation(s) Reevaluation #1: 11/25/19 21:06 Patient was again reevaluated. Patient and family updated. Case discussed in detail wit Dr. Carrillo, who will admit for Dr. Dennis. EKG Findings - EKG Comments: EKG Findings:: Sinus tachycardia 109. DE 188. QRS 146. QT 356. QTc 479. Normal axis. Bundle-branch block. No acute ST change. Motion artifact is present. Medical Decision Making - Medical Decision Making Patient reevaluated and somewhat improved. Patient is maintaining airway. Family updated. - Lab Data Result diagrams: 11/25/19 19:08 11/25/19 19:08 Lab Results 11/25/19 11/25/19 Range/Units 19:08 19:08 WBC 18.1 H (3.8-10.6) k/uL RBC 4.86 (4.30-5.90) m/uL Hgb 15.5 (13.0-17.5) gm/dL Hct 48.6 (39.0-53.0) % MCV 100.1 H D (80.0-100.0) fL MCH 31.9 (25.0-35.0) pg MCHC 31.8 (31.0-37.0) g/dL RDW 12.7 (11.5-15.5) % Plt Count 342 (150-450) k/uL Neutrophils % 46 % Lymphocytes % 41 % Monocytes % 6 % Eosinophils % 2 % Basophils % 1 % Neutrophils # 8.4 H (1.3-7.7) k/uL Lymphocytes # 7.4 H (1.0-4.8) k/uL Monocytes # 1.0 (0-1.0) k/uL Eosinophils # 0.3 (0-0.7) k/uL Basophils # 0.3 H (0-0.2) k/uL Sodium 142 (137-145) mmol/L Potassium 4.6 (3.5-5.1) mmol/L Chloride 102 (98-107) mmol/L Carbon Dioxide 8 L* (22-30) mmol/L Anion Gap 32 mmol/L BUN 23 H (9-20) mg/dL Creatinine 1.80 H (0.66-1.25) mg/dL Est GFR (CKD-EPI)AfAm 46 (>60 ml/min/1.73 sqM) Est GFR (CKD-EPI)NonAf 39 (>60 ml/min/1.73 sqM) Glucose 119 H (74-99) mg/dL Calcium 10.1 (8.4-10.2) mg/dL Total Bilirubin 0.4 (0.2-1.3) mg/dL AST 53 (17-59) U/L ALT 51 H (4-49) U/L Alkaline Phosphatase 86 (38-126) U/L Total Protein 8.1 (6.3-8.2) g/dL Albumin 5.1 H (3.5-5.0) g/dL Serum Alcohol <10 mg/dL - Radiology Data Radiology results: report reviewed (Skin the brain shows no acute process), image reviewed (Chest x-ray shows no acute lung disease. Probable suboptimal inspiration.) Disposition Clinical Impression: Seizure, Acidosis, metabolic Disposition: ADMITTED IP TO THIS HOSP Is patient prescribed a controlled substance at d/c from ED?: No Referrals: Lucia Kc MD [Primary Care Provider] - 1-2 days Decision Time: 21:07
[2019-11-25 19:34] LABS: Basophils # (A) 0.3 k/uL (0-0.2); Basophils % (A) 1 %; Eosinophils # (A) 0.3 k/uL (0-0.7); Eosinophils % (A) 2 %; HCT 48.6 % (39.0-53.0); HGB 15.5 gm/dL (13.0-17.5); Lymphocytes # (A) 7.4 k/uL (1.0-4.8); Lymphocytes % (A) 41 %; MCH 31.9 pg (25.0-35.0); MCHC 31.8 g/dL (31.0-37.0); Mean Platelet Volume 7.6; Monocytes % (A) 6 %; Neutrophils # (A) 8.4 k/uL (1.3-7.7); Neutrophils % (A) 46 %; Platelet Count 342 k/uL (150-450); RBC 4.86 m/uL (4.30-5.90); RDW 12.7 % (11.5-15.5); WBC 18.1 k/uL (3.8-10.6)
[2019-11-25 19:42] LABS: Chloride 102 mmol/L (98-107); Glucose 119 mg/dL (74-99); Potassium 4.6 mmol/L (3.5-5.1); Sodium 142 mmol/L (137-145)
[2019-11-25 19:43] LABS: AST 53 U/L (17-59); African American GFR (CKD) 46 (>60 ml/min/1.73 sqM); Albumin 5.1 g/dL (3.5-5.0); Alcohol <10 mg/dL; Alkaline Phosphatase 86 U/L (38-126); Anion Gap 32 mmol/L; Blood Urea Nitrogen 23 mg/dL (9-20); Calcium 10.1 mg/dL (8.4-10.2); Non-African American GFR(CKD) 39 (>60 ml/min/1.73 sqM); Total Bilirubin 0.4 mg/dL (0.2-1.3); Total Protein 8.1 g/dL (6.3-8.2)
[2019-11-25 19:44] LABS: MCV 100.1 fL (80.0-100.0)
--- NOTE | 2019-11-25 19:50 | XR ---
EXAMINATION TYPE: XR chest 1V portable DATE OF EXAM: 11/25/2019 COMPARISON: 08/04/2019 HISTORY: Seizure. Chest pain TECHNIQUE: FINDINGS: There is slight coarsening interstitial markings. Heart size is normal. There is no heart f ailure. Thoracic aorta shows some atheromatous change. There is no pleural effusion. IMPRESSION: No acute lung disease. Coarse lung markings probably due to suboptimal inspiration. Inspi ration decreased compared to old exam.
[2019-11-25 19:52] LABS: ALT 51 U/L (4-49); Carbon Dioxide 8 mmol/L (22-30)
--- NOTE | 2019-11-25 20:00 | CT ---
EXAMINATION TYPE: CT brain wo con DATE OF EXAM: 11/25/2019 COMPARISON: 08/04/2019 HISTORY: Seizure. weakness CT DLP: 1099.4 mGycm Automated exposure control for dose reduction was used. Ventricles have normal size. There is no mass effect nor midline shift. There is no sign of intracran ial hemorrhage. The calvarium is intact. There is no evidence of cerebral edema. IMPRESSION: Negative head CT scan. No change.
[2019-11-25] MEDS ORDERED: NALOXONE 0.4 MG/ML 1 ML VIAL IV PRN (21:07)
[2019-11-25] MEDS ORDERED: LORazepam 2 MG/ML INJ IV PRN (21:07)
[2019-11-25] MEDS ORDERED: SODIUM CHLORIDE 0.9% 500 ML 500 ML IV STA (21:11)
[2019-11-25] MEDS ORDERED: SODIUM CHLORIDE 0.9% 1,000 ML IV STA (21:11)
[2019-11-25] MEDS: SODIUM CHLORIDE 0.9% 1,000 ML IV SCH (21:54)
[2019-11-25 23:39] LABS: African American GFR (CKD) >90 (>60 ml/min/1.73 sqM); Anion Gap 5 mmol/L; Blood Urea Nitrogen 22 mg/dL (9-20); Calcium 6.6 mg/dL (8.4-10.2); Carbon Dioxide 19 mmol/L (22-30); Chloride 114 mmol/L (98-107); Glucose 123 mg/dL (74-99); Non-African American GFR(CKD) 80 (>60 ml/min/1.73 sqM); Potassium 3.4 mmol/L (3.5-5.1); Sodium 138 mmol/L (137-145)
[2019-11-26] MEDS: SODIUM CHLORIDE 0.9% 1,000 ML IV SCH ×3 (01:35→19:50)
[2019-11-26] MEDS ORDERED: LIDOCAINE URO-JET JELLY 2% 5 ML KIT URETHRAL ONE (03:34)
[2019-11-26] MEDS ORDERED: LORazepam 2 MG/ML INJ IV ONE (03:34)
[2019-11-26 06:35] LABS: Basophils % (A) 0 %; Eosinophils # (A) 0.1 k/uL (0-0.7); Eosinophils % (A) 1 %; HCT 37.5 % (39.0-53.0); HGB 12.9 gm/dL (13.0-17.5); Lymphocytes % (A) 11 %; MCHC 34.5 g/dL (31.0-37.0); MCV 95.6 fL (80.0-100.0); Mean Platelet Volume 7.4; Monocytes # (A) 0.7 k/uL (0-1.0); Monocytes % (A) 8 %; Neutrophils # (A) 7.6 k/uL (1.3-7.7); Neutrophils % (A) 80 %; Platelet Count 278 k/uL (150-450); RBC 3.92 m/uL (4.30-5.90); RDW 12.8 % (11.5-15.5); WBC 9.5 k/uL (3.8-10.6)
[2019-11-26 06:52] LABS: Calcium 8.3 mg/dL (8.4-10.2); Potassium 4.9 mmol/L (3.5-5.1)
[2019-11-26 08:26] LABS: Anisocytosis (M) Present; Poikilocytosis (M) Present
[2019-11-26] MEDS: ACETAMINOPHEN TAB 325 MG TAB PO PRN ×2 (09:55→15:54)
--- NOTE | 2019-11-26 10:50 | P.HPIM ---
History of Present Illness His is a pleasant 64 years old male with past medical history of heart failure, seizure disorder, COPD, GERD, hypertension, hypothyroidism, substance abuse. Patient has medical guardian. He follows with Dr. mahoney has an outpatient. Patient is poor historian, at baseline he has a guardian who is his daughter. Information is taken from medical records and staff. No family at bedside. Patient is awake and alert however he knows and is in [facility] but he did not know he is in the hospital, he could not remember the date or the name of the president. When asked if he has a guardian he answered may be, and when asked if he has family he struggled remembering and he was not sure. However patient denies current or last few days of any pain, he denies headache or chest pain or dyspnea. Abdominal pain. No nausea vomiting. No diarrhea. No fever. In the emergency room documentation patient had 2 seizure one of them is partial seizure lasted for 30-45 seconds, they did not specify the type followed by gene ralized tonic-clonic seizure lasting 45-60 seconds. Looks like it's followed by post ictal state That is unsure if patient was taken to his medication before normal. Patient has remote history of substance abuse, currently he has his limitation in orientation and he has a public guardian currently the daughter only allows him some marijuana as per staff. Vitals stable. WBC was 18.1 came down to 9.5 today. Results of CBC is unremarkable, creatinine was 1.8 came back to normal at 1.0. Liver enzymes are not significantly elevated. EKG showing sinus tachycardia at 109 with right bundle-branch block and QTC 479. CT of the brain: No acute process per radiologist, chest x-ray: No acute process by radiologist as well. In the emergency room patient got return a half of normal saline and started on 125 mL/h. Also received 1 dose of IV Ativan. His of several antiseizure medication including Lamictal, Keppra. Neurologist has been consulted. Review of Systems CONSTITUTIONAL: No fever, no malaise, no fatigue. HEENT: No recent visual problems or hearing problems. Denied any sore throat. CARDIOVASCULAR: No orthopnea, PND, no palpitations, no syncope. PULMONARY: No shortness of breath, no cough, no hemoptysis. GASTROINTESTINAL: No diarrhea, no nausea, no vomiting, no abdominal pain. Normoactive bowel sounds. NEUROLOGICAL: No headaches, no weakness, no numbness. HEMATOLOGICAL: Denies any bleeding or petechiae. GENITOURINARY: Denies any burning micturition, frequency, or urgency. MUSCULOSKELETAL/RHEUMATOLOGICAL: Denies any joint pain, swelling, or any muscle pain. ENDOCRINE: Denies any polyuria or polydipsia. Past Medical History Past Medical History: Chest Pain / Angina, Heart Failure, COPD, GERD/Reflux, Hypertension, Seizure Disorder, Thyroid Disorder Additional Past Medical History / Comment(s): falls,bronchitis,Memory impairment, legally incapacitated, hypothyroid, small hiatal hernia, diverticulosis History of Any Multi-Drug Resistant Organisms: None Reported Past Surgical History: Hernia Repair, Joint Replacement, Orthopedic Surgery Additional Past Surgical History / Comment(s): 08/2017 EGGD/colonoscopy, prior colonoscopy, umbilical hernia repair, L total knee, R partial knee replacement, R lower leg fracture with ORIF (hardware in place), ERCP, bilateral knee arthroscopies. Past Anesthesia/Blood Transfusion Reactions: No Reported Reaction Past Psychological History: Anxiety, Bipolar, Depression, Schizophrenia Additional Psychological History / Comment(s): Pt resides with his daughter, Pat who is his spray painting machine operator, legal gaurdian. Pt ambulates without device. He does not drive, daughter takes him to appts. Smoking Status: Current every day smoker Past Alcohol Use History: Occasional Additional Past Alcohol Use History / Comment(s): Pt started smoking in 1971 and is less than a ppd smoker on average. Past Drug Use History: Marijuana Additional Drug Use History / Comment(s): Pt occasionally smokes marijuana. - Past Family History Father Family Medical History: Cancer, Coronary Artery Disease (CAD), Pneumonia Additional Family Medical History / Comment(s): Father had a pacemaker. He of pneumonia. Mother Family Medical History: Coronary Artery Disease (CAD), CVA/TIA Medications and Allergies Home Medications Medication Instructions Recorded Confirmed Type Metoprolol Tartrate [Lopressor] 25 mg PO BID 08/08/17 11/25/19 History Montelukast [Singulair] 10 mg PO HS 12/30/17 11/25/19 History QUEtiapine [SEROquel] 50 mg PO HS 01/15/18 11/25/19 History Levothyroxine Sodium [Synthroid] 75 mcg PO DAILY 02/20/18 11/25/19 History Venlafaxine HCl [Effexor XR] 225 mg PO DAILY 02/20/18 11/25/19 History levETIRAcetam [Keppra] 1,500 mg PO BID #60 03/13/19 11/25/19 Rx lamoTRIgine [LaMICtal] 200 mg PO BID 07/24/19 11/25/19 History Famotidine 20 mg PO HS 11/25/19 11/25/19 History Allergies Allergy/AdvReac Type Severity Reaction Status Date / Time No Known Allergies Allergy Verified 11/25/19 19:44 Physical Exam Vitals: Vital Signs Temp Pulse Pulse Resp BP BP Pulse Ox 11/26/19 08:00 98.7 F 73 20 169/83 99 11/26/19 03:59 109 H 20 152/78 95 11/26/19 02:38 112 H 18 11/25/19 23:00 109 H 18 142/89 96 11/25/19 21:30 114 H 16 139/93 96 11/25/19 21:26 98 F 112 H 20 160/87 98 11/25/19 20:30 116 H 18 116/85 96 11/25/19 19:46 101 H 19 119/77 95 11/25/19 19:04 98 F 111 H 14 141/92 98 Intake and Output 11/25/19 11/26/19 11/26/19 22:59 06:59 14:59 Output Total 550 Balance -550 Output: Urine 550 Other: Voiding Method Urinal Urinal Incontinent # Voids 1 Weight 77.111 kg 50.5 kg GENERAL: The patient is alert and oriented x3, not in any acute distress. Well developed, well nourished. HEENT: Pupils are round and equally reacting to light. EOMI. No scleral icterus. No conjunctival pallor. Normocephalic, atraumatic. No pharyngeal erythema. No thyromegaly. CARDIOVASCULAR: S1 and S2 present. No murmurs, rubs, or gallops. PULMONARY: Chest is clear to auscultation, no wheezing or crackles. ABDOMEN: Soft, nontender, nondistended, normoactive bowel sounds. No palpable organomegaly. MUSCULOSKELETAL: No joint swelling or deformity. EXTREMITIES: No cyanosis, clubbing, or pedal edema. NEUROLOGICAL: Gross neurological examination did not reveal any focal deficits. SKIN: No rashes. No petechiae Results CBC & Chem 7: 11/26/19 05:33 11/26/19 05:33 Labs: Abnormal Lab Results - Last 24 Hours (Table) 11/25/19 11/25/19 11/25/19 Range/Units 19:08 19:08 23:00 WBC 18.1 H (3.8-10.6) k/uL RBC (4.30-5.90) m/uL Hgb (13.0-17.5) gm/dL Hct (39.0-53.0) % MCV 100.1 H D (80.0-100.0) fL Neutrophils # 8.4 H (1.3-7.7) k/uL Lymphocytes # 7.4 H (1.0-4.8) k/uL Basophils # 0.3 H (0-0.2) k/uL Potassium 3.4 L (3.5-5.1) mmol/L Chloride 114 H (98-107) mmol/L Carbon Dioxide 8 L* 19 L (22-30) mmol/L BUN 23 H 22 H (9-20) mg/dL Creatinine 1.80 H (0.66-1.25) mg/dL Glucose 119 H 123 H (74-99) mg/dL Calcium 6.6 L (8.4-10.2) mg/dL ALT 51 H (4-49) U/L Albumin 5.1 H (3.5-5.0) g/dL 11/26/19 11/26/19 Range/Units 05:33 05:33 WBC (3.8-10.6) k/uL RBC 3.92 L (4.30-5.90) m/uL Hgb 12.9 L (13.0-17.5) gm/dL Hct 37.5 L (39.0-53.0) % MCV (80.0-100.0) fL Neutrophils # (1.3-7.7) k/uL Lymphocytes # (1.0-4.8) k/uL Basophils # (0-0.2) k/uL Potassium (3.5-5.1) mmol/L Chloride 111 H (98-107) mmol/L Carbon Dioxide (22-30) mmol/L BUN 25 H (9-20) mg/dL Creatinine (0.66-1.25) mg/dL Glucose 103 H (74-99) mg/dL Calcium 8.3 L (8.4-10.2) mg/dL ALT (4-49) U/L Albumin (3.5-5.0) g/dL Thrombosis Risk Factor Assmnt - Choose All That Apply Any of the Below Risk Factors Present?: Yes Each Factor Represents 1 point: Abnormal pulmonary function (COPD), Medical pt on bed rest Other Risk Factors: Yes Each Risk Factor Represents 2 Points: Age 61-74 years Thrombosis Risk Factor Assessment Total Risk Factor Score: 4 Thrombosis Risk Factor Assessment Level: Moderate Risk Assessment and Plan Assessment: Seizure disorder, with a breakthrough seizure. Acute kidney injury, present on admission results Acidemia, present on admission. Chest Heart failure COPD GERD Hypertension Hypothyroidism History of substance abuse Plan: This is a pleasant 64 years old male who presents with a breakthrough seizure. Continue with Ativan as needed, continue with his seizure medication. Neurology consult Labs and medication were reviewed.. Continue same treatment. Continue with symptomatic treatment. Resume home medication. Monitor lytes and vitals. DVT and GI prophylaxis. Further recommendations of the clinical course of the patient DVT prophylaxis: Subcutaneous heparin GI Prophylaxis: Pepcid Prognosis is guarded
--- NOTE | 2019-11-26 13:26 | P.CNNES ---
History of Present Illness Consult date: 11/26/19 Requesting physician: Pineda Harden Reason for Consult: Seizure History of Present Illness: Patient is a 64-year-old male came to the ER for reported seizures. It was reported patient had 2 partial seizures prior to arrival. The EMS did witness partial seizure, lasting for 45 seconds followed by a generalized tonic-clonic seizure lasting for 45-60 seconds. Patient was post ictal at the time of arrival to the ER. Patient has history of seizure disorder. Patient underwent computed tomography scan of the head, which revealed no acute process. Chest x- rays showed no acute lung disease. Coarse lung markings probably due to suboptimal inspiration. EKG showed sinus tachycardia, right bundle branch block. Patient WBC was 18.1 which is now normal 9.5. Sodium is normal, potassium is 4.6, renal functions on arrival showed BUN 23, creatinine 1.80. This has improved to 22/1.01 respectively and hydration. AST is normal 53, ALT 51/49. Blood alcohol level is negative. Patient is currently on Keppra 1500 mg twice a day and Lamictal 200 mg twice a day. Patient follows up with Dr. Mijares. I had seen patient in the hospital previously on 03/11/2019. Patient has history of seizure disorder for almost 30 years. Patient gets petit mal as well as grand mal seizures. His seizures were well-controlled from 2008 onwards. He started having breakthrough seizures since 02/03/2017 when he had multiple grand mal seizures. Patient in March 2019 was on Keppra. I had added Vimpat, but apparently instead of Vimpat, patient is on Lamictal 200 mg twice a day. Patient also has history of depression, bipolar disorder. Patient's daughter manages his medication and gives it to him. Patient does take marijuana almost on a daily basis. Patient had an EEG on 03/12/2019, which was abnormal EEG due to [id number] background slowing. This is suggestive of generalized cerebral dysfunction as can be seen with toxic metabolic encephalopathies or related to diffuse structural brain abnormality. Clinical correlation is recommended. No epileptiform activity was seen. Review of Systems Patient denies any double vision, loss of vision, hoarseness without dysphagia. He does complain of headache. He also has problem with control of urine. He just had undergone urinary bladder catheterization. Denies any chest pain shortness of breath, abdominal pain, nausea vomiting diarrhea. Past Medical History Past Medical History: Chest Pain / Angina, Heart Failure, COPD, GERD/Reflux, Hypertension, Seizure Disorder, Thyroid Disorder Additional Past Medical History / Comment(s): falls,bronchitis,Memory impairment, legally incapacitated, hypothyroid, small hiatal hernia, diverticulosis History of Any Multi-Drug Resistant Organisms: None Reported Past Surgical History: Hernia Repair, Joint Replacement, Orthopedic Surgery Additional Past Surgical History / Comment(s): 08/2017 EGGD/colonoscopy, prior colonoscopy, umbilical hernia repair, L total knee, R partial knee replacement, R lower leg fracture with ORIF (hardware in place), ERCP, bilateral knee arthroscopies. Past Anesthesia/Blood Transfusion Reactions: No Reported Reaction Past Psychological History: Anxiety, Bipolar, Depression, Schizophrenia Additional Psychological History / Comment(s): Pt resides with his daughter, Pat who is his law tutor, legal gaurdian. Pt ambulates without device. He does not drive, daughter takes him to appts. Smoking Status: Current every day smoker Past Alcohol Use History: Occasional Additional Past Alcohol Use History / Comment(s): Pt started smoking in 1971 and is less than a ppd smoker on average. Past Drug Use History: Marijuana Additional Drug Use History / Comment(s): Pt occasionally smokes marijuana. - Past Family History Father Family Medical History: Cancer, Coronary Artery Disease (CAD), Pneumonia Additional Family Medical History / Comment(s): Father had a pacemaker. He of pneumonia. Mother Family Medical History: Coronary Artery Disease (CAD), CVA/TIA Medications and Allergies Home Medications Medication Instructions Recorded Confirmed Type Metoprolol Tartrate [Lopressor] 25 mg PO BID 08/08/17 11/25/19 History Montelukast [Singulair] 10 mg PO HS 12/30/17 11/25/19 History QUEtiapine [SEROquel] 50 mg PO HS 01/15/18 11/25/19 History Levothyroxine Sodium [Synthroid] 75 mcg PO DAILY 02/20/18 11/25/19 History Venlafaxine HCl [Effexor XR] 225 mg PO DAILY 02/20/18 11/25/19 History levETIRAcetam [Keppra] 1,500 mg PO BID #60 03/13/19 11/25/19 Rx lamoTRIgine [LaMICtal] 200 mg PO BID 07/24/19 11/25/19 History Famotidine 20 mg PO HS 11/25/19 11/25/19 History Allergies Allergy/AdvReac Type Severity Reaction Status Date / Time No Known Allergies Allergy Verified 11/25/19 19:44 Physical Examination - Vital Signs Vital Signs: Vital Signs Temp Pulse Pulse Resp BP BP Pulse Ox 11/26/19 12:00 98.6 F 57 L 20 126/76 98 11/26/19 08:00 98.7 F 73 20 169/83 99 11/26/19 03:59 109 H 20 152/78 95 11/26/19 02:38 112 H 18 11/25/19 23:00 109 H 18 142/89 96 11/25/19 21:30 114 H 16 139/93 96 11/25/19 21:26 98 F 112 H 20 160/87 98 11/25/19 20:30 116 H 18 116/85 96 11/25/19 19:46 101 H 19 119/77 95 11/25/19 19:04 98 F 111 H 14 141/92 98 Intake and Output 11/25/19 11/26/19 11/26/19 22:59 06:59 14:59 Output Total 550 Balance -550 Output: Urine 550 Other: Voiding Method Urinal Indwelling Catheter # Voids 1 Weight 77.111 kg 50.5 kg On examination patient is a late middle aged male, in no distress. He is alert and awake. Speech and language functions are normal. Patient does have some degree of cognitive impairment. Patient is not very oriented. Cranial exam showed pupils are round and reactive to light, visual feels are full on confrontation, extra muscles are intact without nystagmus. Face is symmetric and tongue protrudes the midline. Palatal elevation and sensation normal. On muscle strength testing there is no pronator drift and the strength is normal in arms and legs distally and proximally. Reflexes are 2+ all over and plantars downgoing. Sensory to touch is equal. No ataxia for [id number] testing, tone and bulk of muscles normal. Results - Laboratory Findings CBC and BMP: 11/27/19 05:44 11/27/19 05:44 Abnormal Lab Findings: Abnormal Labs 11/25/19 11/25/19 11/25/19 19:08 19:08 23:00 WBC 18.1 H RBC Hgb Hct MCV 100.1 H D Neutrophils # 8.4 H Lymphocytes # 7.4 H Basophils # 0.3 H Potassium 3.4 L Chloride 114 H Carbon Dioxide 8 L* 19 L BUN 23 H 22 H Creatinine 1.80 H Glucose 119 H 123 H Calcium 6.6 L ALT 51 H Albumin 5.1 H 11/26/19 11/26/19 05:33 05:33 WBC RBC 3.92 L Hgb 12.9 L Hct 37.5 L MCV Neutrophils # Lymphocytes # Basophils # Potassium Chloride 111 H Carbon Dioxide BUN 25 H Creatinine Glucose 103 H Calcium 8.3 L ALT Albumin Assessment and Plan Assessment: * 64-year-old male with long-standing history of seizure disorder, came with breakthrough seizure of unclear cause. Patient states he is compliant with medication. Patient already on optimal dose of 2 antiepileptic medications. Patient possibly has medically intractable epilepsy. No evidence of hyponatremia noted on current admission. * History of alcoholism * Marijuana use. * Bipolar disorder Plan: * Patient is already on optimal dose of 2 seizure medications including Keppra 1500 mg twice a day and Lamictal 200 mg twice a day. * We are awaiting blood levels of Keppra and Lamictal. We may have to optimize dose of Lamictal, if the levels are low, or on the lower limits of normal range. * Patient had at least 4 EEG is performed in the past, which did not reveal any epileptiform activity. Patient may benefit from evaluation at epilepsy monitoring unit in a tertiary care center for localization of epilepsy, rule out psychogenic nonepileptic epilepsy.
[2019-11-26 13:30] VITALS: BMI 16.0
[2019-11-26] MEDS ORDERED: LORazepam 2 MG/ML INJ IV PRN (15:37)
[2019-11-26] MEDS: METOPROLOL TARTRATE 25 MG TAB PO SCH (19:48)
[2019-11-26] MEDS: FAMOTIDINE 20 MG TAB PO SCH (19:48)
[2019-11-26] MEDS: lamoTRIgine 100 MG TAB PO SCH (19:48)
[2019-11-26] MEDS: MONTELUKAST 10 MG TAB PO SCH (19:48)
[2019-11-26] MEDS: QUEtiapine 50 MG TAB PO SCH (19:48)
[2019-11-27] MEDS: LEVOTHYROXINE 75 MCG TAB PO SCH (05:01)
[2019-11-27] MEDS: SODIUM CHLORIDE 0.9% 1,000 ML IV SCH (05:01)
[2019-11-27 06:29] LABS: Basophils # (A) 0.1 k/uL (0-0.2); Basophils % (A) 1 %; Eosinophils % (A) 0 %; HGB 11.5 gm/dL (13.0-17.5); Lymphocytes # (A) 1.6 k/uL (1.0-4.8); Lymphocytes % (A) 20 %; MCH 31.7 pg (25.0-35.0); MCHC 33.8 g/dL (31.0-37.0); MCV 93.7 fL (80.0-100.0); Mean Platelet Volume 7.5; Monocytes # (A) 0.5 k/uL (0-1.0); Monocytes % (A) 7 %; Neutrophils # (A) 5.8 k/uL (1.3-7.7); Neutrophils % (A) 71 %; Platelet Count 203 k/uL (150-450); RBC 3.63 m/uL (4.30-5.90); RDW 12.9 % (11.5-15.5); WBC 8.2 k/uL (3.8-10.6)
[2019-11-27 06:45] LABS: African American GFR (CKD) >90 (>60 ml/min/1.73 sqM); Anion Gap 5 mmol/L; Blood Urea Nitrogen 16 mg/dL (9-20); Calcium 8.2 mg/dL (8.4-10.2); Carbon Dioxide 24 mmol/L (22-30); Chloride 109 mmol/L (98-107); Glucose 105 mg/dL (74-99); Non-African American GFR(CKD) >90 (>60 ml/min/1.73 sqM); Sodium 138 mmol/L (137-145)
[2019-11-27] MEDS: lamoTRIgine 100 MG TAB PO SCH ×2 (08:33→22:08)
[2019-11-27] MEDS: METOPROLOL TARTRATE 25 MG TAB PO SCH ×2 (08:33→22:07)
[2019-11-27] MEDS: VENLAFAXINE HCL ER 75 MG CAP PO SCH (08:33)
[2019-11-27 09:38] LABS: Lamotrigine (Lamictal) 2.7 ug/mL (2.0-15.0)
[2019-11-27 09:42] LABS: Levetiracetam (Keppra) 28.8 ug/mL (3.0-60.0)
--- NOTE | 2019-11-27 11:40 | P.PN ---
Subjective His is a pleasant 64 years old male with past medical history of heart failure, seizure disorder, COPD, GERD, hypertension, hypothyroidism, substance abuse. Patient has medical guardian. He follows with Dr. maohney has an outpatient. Patient is poor historian, at baseline he has a guardian who is his daughter. Information is taken from medical records and staff. No family at bedside. Patient is awake and alert however he knows and is in [facility] but he did not know he is in the hospital, he could not remember the date or the n oma of the president. When asked if he has a guardian he answered may be, and when asked if he has family he struggled remembering and he was not sure. However patient denies current or last few days of any pain, he denies headache or chest pain or dyspnea. Abdominal pain. No nausea vomiting. No diarrhea. No fever. In the emergency room documentation patient had 2 seizure one of them is partial seizure lasted for 30-45 seconds, they did not specify the type followed by generalized tonic-clonic seizure lasting 45-60 seconds. Looks like it's followed by post ictal state That is unsure if patient was taken to his medication before normal. Patient has remote history of substance abuse, currently he has his limitation in orientation and he has a public guardian currently the daughter only allows him some marijuana as per staff. Vitals stable. WBC was 18.1 came down to 9.5 today. Results of CBC is unremarkable, creatinine was 1.8 came back to normal at 1.0. Liver enzymes are not significantly elevated. EKG showing sinus tachycardia at 109 with right bundle-branch block and QTC 479. CT of the brain: No acute process per radiologist, chest x-ray: No acute process by radiologist as well. In the emergency room patient got return a half of normal saline and started on 125 mL/h. Also received 1 dose of IV Ativan. His of several antiseizure medication including Lamictal, Keppra. Neurologist has been consulted. 11/27/2019 Patient is awake, even more than yesterday, however he still confused. He knows in the hospital but he does not know which hospital, he does not know the date or the year, he does not know the name of the president, he does not know why he is in the hospital. He is smiling and he does not have any complaints. He is on Keppra and Lamictal and levels are pending. Neuro R following the case. Recommended to rule out psychogenic seizure. Psych service consulted Review of Systems CONSTITUTIONAL: No fever, no malaise, no fatigue. HEENT: No recent visual problems or hearing problems. Denied any sore throat. CARDIOVASCULAR: No orthopnea, PND, no palpitations, no syncope. PULMONARY: No shortness of breath, no cough, no hemoptysis. GASTROINTESTINAL: No diarrhea, no nausea, no vomiting, no abdominal pain. Normoa ctive bowel sounds. NEUROLOGICAL: No headaches, no weakness, no numbness. HEMATOLOGICAL: Denies any bleeding or petechiae. GENITOURINARY: Denies any burning micturition, frequency, or urgency. MUSCULOSKELETAL/RHEUMATOLOGICAL: Denies any joint pain, swelling, or any muscle pain. ENDOCRINE: Denies any polyuria or polydipsia. Objective - Vital Signs Vital signs: Vital Signs Temp 98.6 F 11/27/19 08:00 Pulse 79 11/27/19 08:00 Resp 18 11/27/19 08:00 BP 125/52 11/27/19 08:00 Pulse Ox 97 11/27/19 08:01 Intake & Output 11/26/19 11/27/19 11/27/19 18:59 06:59 18:59 Intake Total 1000 420 Output Total 500 1500 Balance 500 -1500 420 Weight 50.5 kg 49 kg Intake: Intake, IV Titration 1000 Amount Sodium Chloride 0.9% 1, 1000 000 ml @ 75 mls/hr IV . [id number] [facility] Rx#:[id number] Oral 420 Output: Urine 500 1500 Other: Voiding Method Indwelling Catheter Indwelling Catheter Indwelling Catheter # Bowel Movements 1 - Exam -GENERAL: The patient is alert and oriented x0-1 partially which is his baseline, not in any acute distress. Well developed, well nourished. HEENT: Pupils are round and equally reacting to light. EOMI. No scleral icterus. No conjunctival pallor. Normocephalic, atraumatic. No pharyngeal erythema. No thyromegaly. CARDIOVASCULAR: S1 and S2 present. No murmurs, rubs, or gallops. PULMONARY: Chest is clear to auscultation, no wheezing or crackles. ABDOMEN: Soft, nontender, nondistended, normoactive bowel sounds. No palpable organomegaly. MUSCULOSKELETAL: No joint swelling or deformity. EXTREMITIES: No cyanosis, clubbing, or pedal edema. NEUROLOGICAL: Gross neurological examination did not reveal any focal deficits. SKIN: No rashes. No petechiae - Labs CBC & Chem 7: 11/27/19 05:44 11/27/19 05:44 Labs: Abnormal Lab Results - Last 24 Hours (Table) 11/27/19 11/27/19 Range/Units 05:44 05:44 RBC 3.63 L (4.30-5.90) m/uL Hgb 11.5 L (13.0-17.5) gm/dL Hct 34.0 L (39.0-53.0) % Chloride 109 H (98-107) mmol/L Glucose 105 H (74-99) mg/dL Calcium 8.2 L (8.4-10.2) mg/dL Assessment and Plan Assessment: Seizure disorder, with a breakthrough seizure. Acute kidney injury, present on admission results Acidemia, present on admission. Chest Heart failure COPD GERD Hypertension Hypothyroidism History of substance abuse Plan: This is a pleasant 64 years old male who presents with a breakthrough seizure. Continue with Ativan as needed, continue with his seizure medication. Neurology consult Labs and medication were reviewed.. Continue same treatment. Continue with symptomatic treatment. Resume home medication. Monitor lytes and vitals. DVT and GI prophylaxis. Further recommendations of the clinical course of the patient DVT prophylaxis: Subcutaneous heparin GI Prophylaxis: Pepcid Prognosis is guarded
--- NOTE | 2019-11-27 12:17 | P.PN ---
Subjective Progress Note Date: 11/27/19 No further seizures reported. Patient appears much more pleasant, appears somewhat manicky. Objective - Vital Signs Vital signs: Vital Signs Temp 98.6 F 11/27/19 11:56 Pulse 60 11/27/19 11:56 Resp 18 11/27/19 11:56 BP 134/86 11/27/19 11:56 Pulse Ox 94 L 11/27/19 11:56 Intake & Output 11/26/19 11/27/19 11/27/19 18:59 06:59 18:59 Intake Total 1000 420 Output Total 500 1500 Balance 500 -1500 420 Weight 50.5 kg 49 kg Intake: Intake, IV Titration 1000 Amount Sodium Chloride 0.9% 1, 1000 000 ml @ 75 mls/hr IV . [id number] [facility] Rx#:[id number] Oral 420 Output: Urine 500 1500 Other: Voiding Method Indwelling Catheter Indwelling Catheter Indwelling Catheter # Bowel Movements 1 - Exam Patient is alert and awake in no distress. He could not tell the current month, states is December or January. Could not tell the year. He knows that he is in [facility] and that he is around 65 years of age. Could not tell name of the current president. He was able to tell that it is around winter times. Cranial nerves are normal. Muscle strength is normal. Tone and bulk of muscles normal. - Labs CBC & Chem 7: 11/27/19 05:44 11/27/19 05:44 Labs: Abnormal Lab Results - Last 24 Hours (Table) 11/27/19 11/27/19 Range/Units 05:44 05:44 RBC 3.63 L (4.30-5.90) m/uL Hgb 11.5 L (13.0-17.5) gm/dL Hct 34.0 L (39.0-53.0) % Chloride 109 H (98-107) mmol/L Glucose 105 H (74-99) mg/dL Calcium 8.2 L (8.4-10.2) mg/dL Assessment and Plan Assessment: * 64-year-old male with long-standing history of seizure disorder, came with breakthrough seizure of unclear cause. Patient states he is compliant with medication. Patient already on optimal dose of 2 antiepileptic medications. Patient possibly has medically intractable epilepsy. No evidence of hyponatremia noted on current admission. * History of alcoholism * Marijuana use. * Bipolar disorder Plan: * Patient is already on optimal dose of 2 seizure medications including Keppra 1500 mg twice a day and Lamictal 200 mg twice a day. * Patient's Lamictal level is 2.7 (1-20), Keppra 28.8 (3-60). We will increase dose of Lamictal to 225 mg twice a day. He will take an extra Lamictal 25 mg twice a day, besides his usual dose of Lamictal 200 mg twice a day. He will stay on same dose of Keppra 1500 mg twice a day. * Patient had at least 4 EEG is performed in the past, which did not reveal any epileptiform activity. Patient may benefit from evaluation at epilepsy monitoring unit in a tertiary care center for localization of epilepsy, rule out psychogenic nonepileptic epilepsy. * Neurologically clear for discharge and to follow-up with his neurologist.
[2019-11-27] MEDS: lamoTRIgine 25 MG TAB PO SCH ×2 (14:30→22:08)
[2019-11-27] MEDS ORDERED: TAMSULOSIN 0.4 MG CAP.ER.24H PO STA (18:55)
[2019-11-27] MEDS: QUEtiapine 50 MG TAB PO SCH (22:07)
[2019-11-27] MEDS: MONTELUKAST 10 MG TAB PO SCH (22:07)
[2019-11-27] MEDS: FAMOTIDINE 20 MG TAB PO SCH (22:08)
[2019-11-28 06:13] VITALS: BP 137/68; PULSE 66; RESP 18; TEMP 97.8
[2019-11-28] MEDS: LEVOTHYROXINE 75 MCG TAB PO SCH (06:25)
[2019-11-28] MEDS: VENLAFAXINE HCL ER 75 MG CAP PO SCH (07:24)
[2019-11-28] MEDS: METOPROLOL TARTRATE 25 MG TAB PO SCH (07:25)
[2019-11-28] MEDS: lamoTRIgine 100 MG TAB PO SCH (07:25)
[2019-11-28] MEDS: lamoTRIgine 25 MG TAB PO SCH (07:25)
--- NOTE | 2019-11-28 08:55 | P.DS ---
Providers Date of admission: 11/25/19 21:07 Attending physician: Bandar Bay MD Consults: 11/25/19 21:10 Consult Physician Urgent Consulting Provider: Bere Rueda Consult Reason/Comments: seizure Do you want consulting provider notified?: Yes 11/27/19 10:57 Consult Physician Routine Consulting Provider: Cristiano Watson Consult Reason/Comments: r/o psychogenic nonepileptic epilepsy Do you want consulting provider notified?: Already Contacted Primary care physician: Lucia Singhdaniella [facility] Course: Diagnoses: Seizure disorder, with a breakthrough seizure. Acute kidney injury, present on admission results Acidemia, present on admission. Chest Heart failure COPD GERD Hypertension Hypothyroidism History of substance abuse Hospital course: His is a pleasant 64 years old male with past medical history of heart failure, seizure disorder, COPD, GERD, hypertension, hypothyroidism, substance abuse. Patient has medical guardian. He follows with Dr. mahoney has an outpatient. Patient is poor historian, at baseline he has a guardian who is his daughter. Information is taken from medical records and staff. No family at bedside. Patient is awake and alert however he knows and is in [facility] but he did not know he is in the hospital, he could not remember the date or the name of the president. When asked if he has a guardian he answered may be, and when asked if he has family he struggled remembering and he was not sure. However patient denies current or last few days of any pain, he denies headache or chest pain or dyspnea. Abdominal pain. No nausea vomiting. No diarrhea. No fever. In the emergency room documentation patient had 2 seizure one of them is partial seizure lasted for 30-45 seconds, they did not specify the type followed by generalized tonic-clonic seizure lasting 45-60 seconds. Looks like it's followed by post ictal state Patient has been evaluated by neurologist, his Lamictal level was found low on his toes increased from 200 up to 225 mg twice a day. He continue with Keppra 1500 mg twice a day. No need for EEG as several ones were done in the past per neurologist. No more seizures. No other symptoms and patient cleared for discharge by neurologist There was suspicion of urinary retention however postvoid urine was 37 mL Problems and management plan were discussed with the patient guardian and his daughter Miss cox at [phone] and she verbalized understanding and acceptance Patient was found stable and can be discharged home however he needs follow-up as an outpatient. Patient was instructed to follow up with PCP within one week and patient agrees and with his neurologist Dr. Castro in one week and said she will call and make appointment Gen: patient is a AAOx3, no distress CVS: S1-S2, RRR, no murmur Lungs: B/L CTA, no wheezing Abdomen: soft, no distention, no tenderness, positive bowel sounds Extremity: no leg edema or induration Time spent more than 35 minutes Plan - Discharge Summary New Discharge Prescriptions: New lamoTRIgine [LaMICtal] 25 mg PO BID #60 tab Tamsulosin [Flomax] 0.4 mg PO DAILY #30 cap Continue Metoprolol Tartrate [Lopressor] 25 mg PO BID Montelukast [Singulair] 10 mg PO HS QUEtiapine [SEROquel] 50 mg PO HS Venlafaxine HCl [Effexor XR] 225 mg PO DAILY Levothyroxine Sodium [Synthroid] 75 mcg PO DAILY Famotidine 20 mg PO HS levETIRAcetam [Keppra] 1,500 mg PO BID #60 tab lamoTRIgine [LaMICtal] 200 mg PO BID #60 tab Discharge Medication List Metoprolol Tartrate [Lopressor] 25 mg PO BID 08/08/17 [History] Montelukast [Singulair] 10 mg PO HS 12/30/17 [History] QUEtiapine [SEROquel] 50 mg PO HS 01/15/18 [History] Levothyroxine Sodium [Synthroid] 75 mcg PO DAILY 02/20/18 [History] Venlafaxine HCl [Effexor XR] 225 mg PO DAILY 02/20/18 [History] Famotidine 20 mg PO HS 11/25/19 [History] Tamsulosin [Flomax] 0.4 mg PO DAILY #30 cap 11/27/19 [Rx] lamoTRIgine [LaMICtal] 25 mg PO BID #60 tab 11/27/19 [Rx] lamoTRIgine [LaMICtal] 200 mg PO BID #60 tab 11/27/19 [Rx] levETIRAcetam [Keppra] 1,500 mg PO BID #60 tab 11/27/19 [Rx] Follow up Appointment(s)/Referral(s): [facility], [NON-STAFF] - Leif Neely MD [STAFF PHYSICIAN] - 1 Week (urologist , for urinary retension ) Lucia Kc MD [Primary Care Provider] - 1-2 days Connie Castro MD [Medical Doctor] - 1 Week (please call office to set up follow up appt. recheck your lamictal lever after medication dose was adjusted ) Patient Instructions/Handouts: Recurrent Seizures in Adults (DC), Encephalopathy (DC)
== END 2019-11-28 11:38 | disposition home health service (06) | DRG 101 ==
LOC: EC 19:02 → 3SCARD 21:07 → 6NMEDSUR 11-27 13:25
PROVIDERS: ADMIT Internal Medicine; ATTEND Internal Medicine
DX: G40.409 Other generalized epilepsy and epileptic syndromes, not intractable, without status epilepticus (principal); E87.2 Acidosis; N17.9 Acute kidney failure, unspecified; G40.A09 Absence epileptic syndrome, not intractable, without status epilepticus; I11.0 Hypertensive heart disease with heart failure; I50.9 Heart failure, unspecified; E03.9 Hypothyroidism, unspecified; J44.9 Chronic obstructive pulmonary disease, unspecified; K21.9 Gastro-esophageal reflux disease without esophagitis; K44.9 Diaphragmatic hernia without obstruction or gangrene; F20.9 Schizophrenia, unspecified; F31.9 Bipolar disorder, unspecified; F41.9 Anxiety disorder, unspecified; K57.90 Diverticulosis of intestine, part unspecified, without perforation or abscess without bleeding; F10.21 Alcohol dependence, in remission; F17.210 Nicotine dependence, cigarettes, uncomplicated; Z71.6 Tobacco abuse counseling; Z79.890 Hormone replacement therapy; Z79.899 Other long term (current) drug therapy; Z91.81 History of falling; Z98.890 Other specified postprocedural states; Z96.653 Presence of artificial knee joint, bilateral; Z87.81 Personal history of (healed) traumatic fracture; Z82.49 Family history of ischemic heart disease and other diseases of the circulatory system; Z82.3 Family history of stroke; Z83.6 Family history of other diseases of the respiratory system
CPT/HCPCS: 36415; 70450; 71045; 80048; 80053; 80175; 80177; 80320; 85025; 93005; 94760; 96361; 96374; 99285

== ENCOUNTER 2020-01-19 14:34 | Inpatient (IN) | payer MEDICARE ==
[2020-01-19 14:53] LABS: Glucose,Whole Blood 205 mg/dL (75-99)
[2020-01-19] MEDS ORDERED: ACETAMINOPHEN SUPPOSITORY 650 MG SUPP RECTAL STA (14:54)
--- NOTE | 2020-01-19 14:59 | ED ---
General Adult HPI - General Chief complaint: Seizure Stated complaint: seizure Time Seen by Provider: 01/19/20 14:34 Source: EMS, RN notes reviewed, old records reviewed Mode of arrival: EMS Limitations: altered mental status - History of Present Illness Initial comments: This is a 64-year-old who has a history of seizures per EMS according to EMS family stated he had 2 seizures home and in their presence he had 2 more seizures. Patient was given Versed 5 mg. After that patient stopped seizing but he was unable to respond because he is post ictal. According to EMS family stated that sometimes when he comes out a seizure she is very combative. Family states that they know of no sickness that the patient has had recently. - Related Data Home Medications Medication Instructions Recorded Confirmed Metoprolol Tartrate [Lopressor] 25 mg PO BID 08/08/17 01/19/20 Montelukast [Singulair] 10 mg PO HS 12/30/17 01/19/20 QUEtiapine [SEROquel] 50 mg PO HS 01/15/18 01/19/20 Levothyroxine Sodium [Synthroid] 75 mcg PO DAILY 02/20/18 01/19/20 Venlafaxine HCl [Effexor XR] 225 mg PO DAILY 02/20/18 01/19/20 Famotidine 20 mg PO HS 11/25/19 01/19/20 Simethicone [Gas-X] 125 mg PO ACHS PRN 01/19/20 01/19/20 Previous Rx's Medication Instructions Recorded lamoTRIgine [LaMICtal] 25 mg PO BID #60 tab 11/27/19 lamoTRIgine [LaMICtal] 200 mg PO BID #60 tab 11/27/19 levETIRAcetam [Keppra] 1,500 mg PO BID #60 tab 11/27/19 Allergies Allergy/AdvReac Type Severity Reaction Status Date / Time No Known Allergies Allergy Verified 01/19/20 15:56 Review of Systems ROS Statement: Those systems with pertinent positive or pertinent negative responses have been documented in the HPI. ROS Other: All systems not noted in ROS Statement are negative. Past Medical History Past Medical History: Chest Pain / Angina, Heart Failure, COPD, GERD/Reflux, Hypertension, Seizure Disorder, Thyroid Disorder Additional Past Medical History / Comment(s): falls,bronchitis,Memory impairment, legally incapacitated, hypothyroid, small hiatal hernia, diverticulosis History of Any Multi-Drug Resistant Organisms: None Reported Past Surgical History: Hernia Repair, Joint Replacement, Orthopedic Surgery Additional Past Surgical History / Comment(s): 08/2017 EGGD/colonoscopy, prior colonoscopy, umbilical hernia repair, L total knee, R partial knee replacement, R lower leg fracture with ORIF (hardware in place), ERCP, bilateral knee arthroscopies. Past Anesthesia/Blood Transfusion Reactions: No Reported Reaction Past Psychological History: Anxiety, Bipolar, Depression, Schizophrenia Smoking Status: Current every day smoker Past Alcohol Use History: Occasional Past Drug Use History: Marijuana - Past Family History Father Family Medical History: Cancer, Coronary Artery Disease (CAD), Pneumonia Additional Family Medical History / Comment(s): Father had a pacemaker. He of pneumonia. Mother Family Medical History: Coronary Artery Disease (CAD), CVA/TIA General Exam - General Exam Comments Initial Comments: GENERAL: Patient is well-developed and well-nourished. Patient is nontoxic and well- hydrated and is in no acute distress. ENT: Neck is soft and supple. No significant lymphadenopathy is noted. Oropharynx is clear. Moist mucous membranes. Neck has full range of motion without eliciting any pain. EYES: The sclera were anicteric and conjunctiva were pink and moist. Extraocular movements were intact and pupils were equal round and reactive to light. Eyelids were unremarkable. PULMONARY: Unlabored respirations. Good breath sounds bilaterally. No audible rales rhonchi or wheezing was noted. CARDIOVASCULAR: There is a regular rate and rhythm without any murmurs gallops or rubs. ABDOMEN: Soft and nontender with normal bowel sounds. SKIN: Skin is clear with no lesions or rashes and otherwise unremarkable. NEUROLOGIC: Patient is not responsive to voice or pain at this point time. MUSCULOSKELETAL: Normal extremities with adequate strength and full range of motion. LYMPHATICS: No significant lymphadenopathy is noted PSYCHIATRIC: Normal psychiatric evaluation. Limitations: altered mental status Course Vital Signs 01/19/20 01/19/20 01/19/20 14:50 15:10 15:30 Temperature 99.3 F Pulse Rate 123 H 99 89 Respiratory 26 H 20 16 Rate Blood Pressure 167/101 143/92 128/85 O2 Sat by Pulse 97 98 98 Oximetry 01/19/20 01/19/20 15:40 16:00 Temperature Pulse Rate 99 89 Respiratory 18 20 Rate Blood Pressure 112/71 119/81 O2 Sat by Pulse 95 93 L Oximetry Medical Decision Making - Medical Decision Making EKG shows sinus tachycardia at 127 bpm HI interval is 138 QRS is 114 QT interval 3:30 QTC is [address] segment elevation or depression. Patient was postictal for a period of time the emergency department and e ventually came back to being alert and oriented 3. Patient did complain of a mild headache. - Lab Data Result diagrams: 01/19/20 14:41 01/19/20 14:41 Lab Results 01/19/20 01/19/20 01/19/20 Range/Units 14:41 14:41 14:41 WBC 15.8 H (3.8-10.6) k/uL RBC 4.62 (4.30-5.90) m/uL Hgb 15.0 D (13.0-17.5) gm/dL Hct 47.8 (39.0-53.0) % MCV 103.6 H D (80.0-100.0) fL MCH 32.5 (25.0-35.0) pg MCHC 31.3 (31.0-37.0) g/dL RDW 13.0 (11.5-15.5) % Plt Count 339 (150-450) k/uL Neutrophils % 45 % Lymphocytes % 43 % Monocytes % 5 % Eosinophils % 2 % Basophils % 1 % Neutrophils # 7.2 (1.3-7.7) k/uL Lymphocytes # 6.8 H (1.0-4.8) k/uL Monocytes # 0.9 (0-1.0) k/uL Eosinophils # 0.3 (0-0.7) k/uL Basophils # 0.1 (0-0.2) k/uL Manual Slide Review Performed Reactive Lymphocytes Present Hypochromasia Slight Poikilocytosis (manual Present Macrocytosis Slight PT 10.1 (9.0-12.0) sec INR 1.0 (<1.2) APTT 25.4 (22.0-30.0) sec Sodium 142 (137-145) mmol/L Potassium 4.8 (3.5-5.1) mmol/L Chloride 105 (98-107) mmol/L Carbon Dioxide 6 L* (22-30) mmol/L Anion Gap 31 mmol/L BUN 20 (9-20) mg/dL Creatinine 1.77 H (0.66-1.25) mg/dL Est GFR (CKD-EPI)AfAm 47 (>60 ml/min/1.73 sqM) Est GFR (CKD-EPI)NonAf 40 (>60 ml/min/1.73 sqM) Glucose 219 H (74-99) mg/dL POC Glucose (mg/dL) (75-99) mg/dL POC Glu [employer] ID Calcium 10.0 (8.4-10.2) mg/dL Total Bilirubin 0.3 (0.2-1.3) mg/dL AST 66 H (17-59) U/L ALT 65 H (4-49) U/L Alkaline Phosphatase 86 (38-126) U/L Total Protein 7.9 (6.3-8.2) g/dL Albumin 5.0 (3.5-5.0) g/dL Urine Opiates Screen (NotDetected) Ur Oxycodone Screen (NotDetected) Urine Methadone Screen (NotDetected) Ur Propoxyphene Screen (NotDetected) Ur Barbiturates Screen (NotDetected) U Tricyclic Antidepress (NotDetected) Ur Phencyclidine Scrn (NotDetected) Ur Amphetamines Screen (NotDetected) U Methamphetamines Scrn (NotDetected) U Benzodiazepines Scrn (NotDetected) Urine Cocaine Screen (NotDetected) U Marijuana (THC) Screen (NotDetected) 01/19/20 01/19/20 Range/Units 14:41 14:42 WBC (3.8-10.6) k/uL RBC (4.30-5.90) m/uL Hgb (13.0-17.5) gm/dL Hct (39.0-53.0) % MCV (80.0-100.0) fL MCH (25.0-35.0) pg MCHC (31.0-37.0) g/dL RDW (11.5-15.5) % Plt Count (150-450) k/uL Neutrophils % % Lymphocytes % % Monocytes % % Eosinophils % % Basophils % % Neutrophils # (1.3-7.7) k/uL Lymphocytes # (1.0-4.8) k/uL Monocytes # (0-1.0) k/uL Eosinophils # (0-0.7) k/uL Basophils # (0-0.2) k/uL Manual Slide Review Reactive Lymphocytes Hypochromasia Poikilocytosis (manual Macrocytosis PT (9.0-12.0) sec INR (<1.2) APTT (22.0-30.0) sec Sodium (137-145) mmol/L Potassium (3.5-5.1) mmol/L Chloride (98-107) mmol/L Carbon Dioxide (22-30) mmol/L Anion Gap mmol/L BUN (9-20) mg/dL Creatinine (0.66-1.25) mg/dL Est GFR (CKD-EPI)AfAm (>60 ml/min/1.73 sqM) Est GFR (CKD-EPI)NonAf (>60 ml/min/1.73 sqM) Glucose (74-99) mg/dL POC Glucose (mg/dL) 205 H (75-99) mg/dL POC Glu [employer] ID Guero Garcia Calcium (8.4-10.2) mg/dL Total Bilirubin (0.2-1.3) mg/dL AST (17-59) U/L ALT (4-49) U/L Alkaline Phosphatase (38-126) U/L Total Protein (6.3-8.2) g/dL Albumin (3.5-5.0) g/dL Urine Opiates Screen Not Detected (NotDetected) Ur Oxycodone Screen Not Detected (NotDetected) Urine Methadone Screen Not Detected (NotDetected) Ur Propoxyphene Screen Not Detected (NotDetected) Ur Barbiturates Screen Not Detected (NotDetected) U Tricyclic Antidepress Not Detected (NotDetected) Ur Phencyclidine Scrn Not Detected (NotDetected) Ur Amphetamines Screen Not Detected (NotDetected) U Methamphetamines Scrn Not Detected (NotDetected) U Benzodiazepines Scrn Not Detected (NotDetected) Urine Cocaine Screen Not Detected (NotDetected) U Marijuana (THC) Screen Detected H (NotDetected) Disposition Clinical Impression: Status epilepticus Disposition: ADMITTED IP TO THIS HOSP Referrals: Lucia Kc MD [Primary Care Provider] - 1-2 days Time of Disposition: 17:39
[2020-01-19] MEDS ORDERED: SODIUM CHLORIDE 0.9% 500 ML 500 ML IV SCH (15:00)
[2020-01-19 15:29] LABS: Potassium 4.8 mmol/L (3.5-5.1); Total Bilirubin 0.3 mg/dL (0.2-1.3); Total Protein 7.9 g/dL (6.3-8.2)
[2020-01-19 15:33] LABS: Amphetamine Screen,Urine Not Detected (NotDetected); Barbiturate Screen,Urine Not Detected (NotDetected); Basophils # (A) 0.1 k/uL (0-0.2); Basophils % (A) 1 %; Benzodiazepines Screen,Urine Not Detected (NotDetected); Cocaine Screen,Urine Not Detected (NotDetected); Eosinophils # (A) 0.3 k/uL (0-0.7); Eosinophils % (A) 2 %; HCT 47.8 % (39.0-53.0); Hypochromasia Slight; Lymphocytes # (A) 6.8 k/uL (1.0-4.8); Lymphocytes % (A) 43 %; MCH 32.5 pg (25.0-35.0); MCHC 31.3 g/dL (31.0-37.0); Macrocytosis Slight; Mean Platelet Volume 8.1; Methadone Screen, Urine Not Detected (NotDetected); Monocytes # (A) 0.9 k/uL (0-1.0); Monocytes % (A) 5 %; Neutrophils # (A) 7.2 k/uL (1.3-7.7); Neutrophils % (A) 45 %; Opiate Screen,Urine Not Detected (NotDetected); Oxycodone Screen, Urine Not Detected (NotDetected); Phencyclidine Screen,Urine Not Detected (NotDetected); Platelet Count 339 k/uL (150-450); RBC 4.62 m/uL (4.30-5.90); Tricyclic Antidepressant,Urine Not Detected (NotDetected); Urn Cannabinoid Scrn Detected (NotDetected); WBC 15.8 k/uL (3.8-10.6)
[2020-01-19 15:39] LABS: Partial Thromboplastin Time 25.4 sec (22.0-30.0); Prothrombin Time 10.1 sec (9.0-12.0)
[2020-01-19 15:45] LABS: MCV 103.6 fL (80.0-100.0)
[2020-01-19 16:15] LABS: Poikilocytosis (M) Present; Reactive Lymphocytes Present
[2020-01-19] MEDS ORDERED: SODIUM CHLORIDE 0.9% 1,000 ML IV ONE (17:44)
--- NOTE | 2020-01-19 17:44 | XR ---
EXAMINATION TYPE: XR chest 1V portable DATE OF EXAM: 01/19/2020 COMPARISON: 11/25/2019 HISTORY: Seizure TECHNIQUE: FINDINGS: Heart is normal. Lungs are clear of infiltrate. Thoracic aorta is atheromatous. There are n o hilar masses. Costophrenic angles are clear. IMPRESSION: No active cardiopulmonary disease. Normal heart. No change.
[2020-01-19 17:51] LABS: Albumin 3.3 g/dL (3.5-5.0); Calcium 7.3 mg/dL (8.4-10.2); Potassium 3.9 mmol/L (3.5-5.1); Total Bilirubin 0.4 mg/dL (0.2-1.3); Total Protein 5.9 g/dL (6.3-8.2)
[2020-01-19] MEDS ORDERED: SIMETHICONE 80 MG CHEWABLE PO PRN (19:05)
[2020-01-19] MEDS ORDERED: HYDROcodone/APAP 5-325MG 1 EACH TAB PO PRN (19:08)
[2020-01-19] MEDS ORDERED: HYDROmorphone 0.5 MG/0.5 ML SYRINGE IVP PRN (19:08)
[2020-01-19] MEDS ORDERED: THIAMINE 100 MG/ML 2 ML VIAL IM STA (19:13)
[2020-01-19] MEDS ORDERED: IPRATROPIUM-ALBUTEROL 3 ML NEB INHALATION PRN (19:13)
[2020-01-19] MEDS ORDERED: LORazepam 2 MG/ML INJ IV PRN ×3 (19:13)
[2020-01-19] MEDS: IPRATROPIUM-ALBUTEROL 3 ML NEB INHALATION SCH (19:29)
[2020-01-19] MEDS: SODIUM CHLORIDE 0.9% 1,000 ML IV SCH (19:44)
[2020-01-19] MEDS: MONTELUKAST 10 MG TAB PO SCH (19:45)
[2020-01-19] MEDS: THIAMINE 100 MG TAB PO SCH (19:45)
[2020-01-19] MEDS: QUEtiapine 50 MG TAB PO SCH (19:45)
[2020-01-19] MEDS: HEPARIN SODIUM,PORCINE 5,000 UNIT/ML 1 ML VIAL SQ SCH (19:45)
[2020-01-19] MEDS: lamoTRIgine 100 MG TAB PO SCH (19:46)
[2020-01-19] MEDS: METOPROLOL TARTRATE 25 MG TAB PO SCH (19:46)
[2020-01-19] MEDS: lamoTRIgine 25 MG TAB PO SCH (19:46)
--- NOTE | 2020-01-19 19:53 | CT ---
EXAMINATION TYPE: CT brain wo con DATE OF EXAM: 01/19/2020 COMPARISON: 11/25/2019 HISTORY: PHILLIP, seizure CT DLP: 1204 mGycm Automated exposure control for dose reduction was used. Ventricles have normal size. There is no mass effect nor midline shift. There is no sign of intracran ial hemorrhage. Calvarium is intact. IMPRESSION: Negative head CT scan. No change.
[2020-01-19] MEDS: NICOTINE 14MG/24HR PATCH TRANSDERM SCH (20:03)
--- NOTE | 2020-01-19 20:31 | P.CNNES ---
History of Present Illness Consult date: 01/19/20 Requesting physician: Ronen Dick Reason for Consult: Status epilepticus History of Present Illness: Patient is a 64-year-old male, well known to me from previous admissions to the hospital, came to the hospital after he had 2 seizures at home. He had 2 more seizures when EMS was present. Patient was given Versed 5 mg. After that patient stopped seizing but he was unable to respond because of post ictal state. Family had mentioned that after a seizure patient is really combative. Family did not notice any recent sickness otherwise.. Patient has history of seizure disorder for almost last 30 years. Patient gets petit mal seizures and grand mal seizures. His seizures were well-controlled in 2008, when he was able to get his driving license back. He started having breakthrough seizures since 02/03/2017 when he had multiple grand mal seizures. At that time patient was intoxicated and had been doing cocaine. He had memory loss afterwards. Patient underwent computed tomography scan of the head, which was negative. EKG shows sinus tachycardia with incomplete right bundle branch block. Chest x-ray showed no acute cardiopulmonary disease. Normal chest x-ray. DIP WBC is 15.8 hemoglobin 15.0, elevated MCV 103.6 and platelets 339. PT/PTT normal. Urine drug screen positive for marijuana. Influenza screen negative. Basic metabolic panel normal. Liver functions were slightly elevated in the beginning but repeat testing is normal. Patient takes Lamictal 200 mg twice a day, and Lamictal 25 mg twice a day (total to 25 mg twice a day), and Keppra 1500 mg twice a day. Patient states that he does not miss his seizure medications. Review of Systems Denies headache, diplopia, loss of vision. Denies hoarseness or through dysphagia. Does have some cough. Denies chest pain, abdominal pain nausea vomiting diarrhea. Past Medical History Past Medical History: Chest Pain / Angina, Heart Failure, COPD, GERD/Reflux, Hypertension, Seizure Disorder, Thyroid Disorder Additional Past Medical History / Comment(s): falls,bronchitis,Memory impairment, legally incapacitated, hypothyroid, small hiatal hernia, diverticulosis History of Any Multi-Drug Resistant Organisms: None Reported Past Surgical History: Hernia Repair, Joint Replacement, Orthopedic Surgery Additional Past Surgical History / Comment(s): 08/2017 EGGD/colonoscopy, prior colonoscopy, umbilical hernia repair, L total knee, R partial knee replacement, R lower leg fracture with ORIF (hardware in place), ERCP, bilateral knee arthroscopies. Past Anesthesia/Blood Transfusion Reactions: No Reported Reaction Past Psychological History: Anxiety, Bipolar, Depression, Schizophrenia Smoking Status: Current every day smoker Past Alcohol Use History: Occasional Past Drug Use History: Marijuana - Past Family History Father Family Medical History: Cancer, Coronary Artery Disease (CAD), Pneumonia Additional Family Medical History / Comment(s): Father had a pacemaker. He of pneumonia. Mother Family Medical History: Coronary Artery Disease (CAD), CVA/TIA Medications and Allergies Home Medications Medication Instructions Recorded Confirmed Type Metoprolol Tartrate [Lopressor] 25 mg PO BID 08/08/17 01/19/20 History Montelukast [Singulair] 10 mg PO HS 12/30/17 01/19/20 History QUEtiapine [SEROquel] 50 mg PO HS 01/15/18 01/19/20 History Levothyroxine Sodium [Synthroid] 75 mcg PO DAILY 02/20/18 01/19/20 History Venlafaxine HCl [Effexor XR] 225 mg PO DAILY 02/20/18 01/19/20 History Famotidine 20 mg PO HS 11/25/19 01/19/20 History lamoTRIgine [LaMICtal] 25 mg PO BID #60 tab 11/27/19 01/19/20 Rx lamoTRIgine [LaMICtal] 200 mg PO BID #60 tab 11/27/19 01/19/20 Rx levETIRAcetam [Keppra] 1,500 mg PO BID #60 tab 11/27/19 01/19/20 Rx Simethicone [Gas-X] 125 mg PO ACHS PRN 01/19/20 01/19/20 History Allergies Allergy/AdvReac Type Severity Reaction Status Date / Time No Known Allergies Allergy Verified 01/19/20 15:56 Physical Examination - Vital Signs Vital Signs: Vital Signs Temp Pulse Pulse Resp BP BP Pulse Ox 01/19/20 19:08 99.3 F 90 18 120/88 97 01/19/20 16:00 89 20 119/81 93 L 01/19/20 15:40 99 18 112/71 95 01/19/20 15:30 89 16 128/85 98 01/19/20 15:10 99 20 143/92 98 01/19/20 14:50 99.3 F 123 H 26 H 167/101 97 Intake and Output 01/19/20 01/19/20 01/19/20 06:59 14:59 22:59 Output Total 250 Balance -250 Output: Urine 250 Uretheral ([place]) 250 Other: Weight 72.575 kg On examination patient is a late middle aged male, who was somnolent. His speech and language functions appears normal. He knows that he is in [facility] in [place]. He knows his name and age. Cranial nerves appears normal. Face is symmetric. Muscle strength is normal. Tone and bulk of muscles normal. No ataxia. Results - Laboratory Findings CBC and BMP: 01/20/20 07:18 01/20/20 07:18 Abnormal Lab Findings: Abnormal Labs 01/19/20 01/19/20 01/19/20 14:41 14:41 14:41 WBC 15.8 H MCV 103.6 H D Lymphocytes # 6.8 H Chloride Carbon Dioxide 6 L* Creatinine 1.77 H Glucose 219 H POC Glucose (mg/dL) Calcium AST 66 H ALT 65 H Total Protein Albumin U Marijuana (THC) Screen Detected H 01/19/20 01/19/20 14:42 17:34 WBC MCV Lymphocytes # Chloride 116 H Carbon Dioxide 15 L Creatinine Glucose POC Glucose (mg/dL) 205 H Calcium 7.3 L AST ALT Total Protein 5.9 L Albumin 3.3 L U Marijuana (THC) Screen Assessment and Plan Assessment: * 64-year-old male with long-standing history of seizure disorder, came with breakthrough seizure of unclear cause. Patient states he is compliant with medication. Patient already on optimal dose of 2 antiepileptic medications. Patient possibly has medically intractable epilepsy. No evidence of hyponatremia noted on current admission. Plan: * Await Lamictal and Keppra levels. * Continue same dose of Lamictal 225 mg twice a day and Keppra 1500 mg twice a d ay for now. * I will try to talk to patient's family in the morning to get more information about his seizure medications. * Patient's insurance would not cover Vimpat in the past. * Patient had multiple EEGs performed in the past, which were negative. Suggest patient referred to epilepsy monitoring unit, at [facility] or [facility] for video EEG monitoring, to evaluate for localization of epilepsy, rule out psychogenic nonepileptic seizures.
--- NOTE | 2020-01-19 22:14 | HP ---
HISTORY AND PHYSICAL DATE OF SERVICE: 01/19/2020 CHIEF COMPLAINT: Seizures. HISTORY OF PRESENT ILLNESS: This 64-year-old gentleman with a past medical history of multiple medical problems including history of chest pain, history of CHF, COPD, GERD, hypertension, history of seizure disorder, history of bronchitis, hernia repair, history of anxiety, bipolar depression, schizophrenia being followed Dr. Lucia Kc in the outpatient setting was apparently living with her daughter Pat, who is the security analyst and legal guardian. The patient was apparently taken to [facility] and complains of two seizures and she had two more seizures later. The patient was given Versed 5 mg. Apparently patient was postictal and the patient was admitted for evaluation treatment. Currently, the patient is only able to give a sketchy history. Patient had some cough. Otherwise no history of fever. No history of recent travel or any contact with sick individuals at this time. The evaluation in the ER showed WBC 15.8, and CO2 of 16 and glucose is 215. AST, ALT was elevated. The THC was positive. The patient does have some history of alcohol, but not recently according to him. PAST MEDICAL HISTORY: History of CHF, COPD, GERD, hypertension, seizure disorder, history of bronchitis and hernia repair. CURRENT MEDICATIONS: Prior to admission include: 1. Gas-X 125 mg p.o. a.c. and q.h.s. p.r.n. 2. Keppra 1500 mg p.o. b.i.d. 3. Lamictal 25 mg p.o. b.i.d. 5. Effexor 225 mg p.o. daily. 6. Seroquel 50 mg q.h.s. 7. Singulair 10 mg at bedtime. 8. Lopressor 25 mg p.o. b.i.d. 9. Synthroid 25 mcg p.o. daily. 10.Famotidine 20 mg q.h.s. ALLERGIES: None. FAMILY HISTORY: History of CAD, history of pneumonia, history of pacemaker in the family. SOCIAL HISTORY: History of smoking, continued ongoing, alcohol history. It is not clear how much the patient is taking at this time. REVIEW OF SYSTEMS: ENT: Diminished vision. Diminished hearing. CARDIOVASCULAR system: No angina or palpitations. RESPIRATORY: As mentioned earlier. GI no nausea or vomiting. no dysuria or hematuria. NERVOUS SYSTEM: As mentioned earlier. ALLERGY/IMMUNOLOGY: No asthma or hayfever. MUSCULOSKELETAL as mentioned earlier. HEMATOLOGY/ONCOLOGY: No history of anemia. ENDOCRINE: Hypothyroidism. CONSTITUTIONAL: As mentioned earlier. DERMATOLOGY: Negative. RHEUMATOLOGY: Negative. PSYCHIATRY: Bipolar. PHYSICAL EXAM: Patient is alert, oriented x3. Pulse 89. Blood pressure 119/80, respiration 20, temperature normal, pulse ox 93 percent on 15 L, non-rebreather mask. HEENT is conjunctivae normal. NECK: No JVD. CARDIOVASCULAR system: S1, S2 muffled. RESPIRATIONS: Breath sounds diminished in the the bases. A few scattered rhonchi and crackles. ABDOMEN: Soft, nontender. LEGS no edema. No swelling. CENTRAL NERVOUS SYSTEM: Higher functions as mentioned earlier. Otherwise, cranial nerves 2 thru 12 grossly intact. Moves all 4 limbs. No focal motor or sensory deficits. No neck stiffness. LYMPHATICS: No lymph nodes palpable in the neck or axilla or groin. SKIN: No ulcer, no rash and no bleeding. JOINTS: No active deforming arthropathy. LABS: WBC 15.2, hemoglobin 15, sodium 142, potassium 4.8. AST, ALT noted. The chest x-ray which was done personally reviewed by me showed increased bronchovascular markings especially in the upper lobe. ASSESSMENT: 1. Seizure disorder and recurrent seizures. 2. History of chronic obstructive pulmonary disease. 3. History of congestive heart failure ejection fraction unknown. 4. History of gastroesophageal reflux disease. 5. Hypertension. 6. Seizure disorder. 7. History of hypothyroidism. 8. Memory impairment. 9. History of legal incapacity. 10.Small hiatal hernia. 11.History of degenerative joint disease. 12.History of ERCP. 13.History of anxiety, bipolar depression. 14.Schizophrenia. 15.History of nicotine dependence. 16.History of ETOH. 17.History of THC. 18.FULL CODE. RECOMMENDATIONS AND DISCUSSION: This 64-year-old gentleman who presented with multiple complex medical issues, at this time, I recommend to continue the current medications, management and symptomatic treatment. I would recommend neurology consultation. Neurovascular workup. Otherwise, watch for seizures. The exact etiology is unknown at this time. I would also recommend influenza check and routine workup also. The white count is elevated. I would also recommend empiric antibiotics. Guarded prognosis. Further recommendations to follow. A copy of dictation being forwarded to Dr. Lucia Kc who is the primary care physician. MMODL / IJN: [id number] / [email or web address]
[2020-01-20] MEDS: LEVOTHYROXINE 75 MCG TAB PO SCH (04:45)
[2020-01-20] MEDS: lamoTRIgine 25 MG TAB PO SCH ×2 (07:52→20:24)
[2020-01-20] MEDS: METOPROLOL TARTRATE 25 MG TAB PO SCH ×2 (07:52→20:24)
[2020-01-20] MEDS: lamoTRIgine 100 MG TAB PO SCH ×2 (07:52→20:25)
[2020-01-20] MEDS: PANTOPRAZOLE 40 MG TABLET PO SCH (07:52)
[2020-01-20] MEDS: FOLIC ACID 1 MG TAB PO SCH (07:52)
[2020-01-20] MEDS: HEPARIN SODIUM,PORCINE 5,000 UNIT/ML 1 ML VIAL SQ SCH ×2 (07:52→20:25)
[2020-01-20] MEDS: MULTIVITAMINS, THERA 1 EACH TAB PO SCH (07:52)
[2020-01-20] MEDS: THIAMINE 100 MG TAB PO SCH ×2 (07:53→15:49)
[2020-01-20] MEDS: NICOTINE 14MG/24HR PATCH TRANSDERM SCH (07:53)
[2020-01-20] MEDS: VENLAFAXINE HCL ER 75 MG CAP PO SCH (07:53)
[2020-01-20] MEDS: IPRATROPIUM-ALBUTEROL 3 ML NEB INHALATION SCH ×3 (07:55→19:39)
[2020-01-20 08:01] LABS: Calcium 8.9 mg/dL (8.4-10.2); Potassium 4.4 mmol/L (3.5-5.1)
[2020-01-20 08:03] LABS: Basophils % (A) 0 %; Eosinophils # (A) 0.1 k/uL (0-0.7); Eosinophils % (A) 1 %; HCT 38.1 % (39.0-53.0); HGB 12.8 gm/dL (13.0-17.5); Lymphocytes # (A) 1.6 k/uL (1.0-4.8); Lymphocytes % (A) 18 %; MCH 31.7 pg (25.0-35.0); MCHC 33.7 g/dL (31.0-37.0); Mean Platelet Volume 7.3; Monocytes # (A) 0.8 k/uL (0-1.0); Monocytes % (A) 9 %; Neutrophils # (A) 6.2 k/uL (1.3-7.7); Neutrophils % (A) 69 %; Platelet Count 262 k/uL (150-450); RBC 4.05 m/uL (4.30-5.90); RDW 13.3 % (11.5-15.5); WBC 8.9 k/uL (3.8-10.6)
[2020-01-20] MEDS: SODIUM CHLORIDE 0.9% 1,000 ML IV SCH (08:04)
[2020-01-20 08:10] LABS: MCV 94.2 fL (80.0-100.0)
--- NOTE | 2020-01-20 10:52 | CDI ---
Documentation Clarification Form Date: 01/20/2020 10:23:55 AM From: Anisa Perez RN CCDS Admit Date: 01/19/2020 05:44:00 PM Patient Name: Weston Valerio Visit Number: [id number] Discharge Date: ATTENTION: The Clinical Documentation Specialists (CDI) and [facility] Coding Staff appreciate your assistance in clarifying documentation. Please respond to the clarification below the line at the bottom and electronically sign. The CDI & [facility] Coding staff will review the response and follow-up if needed. Please note: Queries are made part of the Legal Health Record. If you have any questions, please contact the author of this message via ITS. Dr. Derrell Sierra History of congestive heart failure ejection fraction unknown Is documented in the H&P 01/18 History/Risk Factors: 64-year-old male presents to the ED via EMS after having tow seizures at home, known history of seizures. Medical history HTN, CHF and nicotine dependence Clinical Indicators: VS/Pulse OX: 01/18 14:50 167/101 123 99.3 26 97% 15L nasal cannula Echocardiogram Results:08/13/17 There is borderline concentric left ventricular hypertrophy. Overall left ventricular systolic function is normal with an EF between 60-65% . The right ventricle is slightly enlarged. Chest X Ray: 01/18 No active cardiopulmonary disease. Normal heart. No change Treatment: 01/19 Lopressor 25mg po bid darion In your professional opinion, can you please clarify the acuity and type of CHF if known? * Chronic Diastolic Heart Failure * Unable to Determine * Other, please specify (Last Revision: February 2018) Chronic Diastolic Heart Failure MTDD
[2020-01-20] MEDS ORDERED: THIAMINE 100 MG TAB PO SCH (12:00)
--- NOTE | 2020-01-20 16:20 | P.PN ---
Subjective Progress Note Date: 01/20/20 Objective - Vital Signs Vital signs: Vital Signs Temp 97.7 F 01/20/20 11:45 Pulse 57 L 01/20/20 15:14 Resp 17 01/20/20 15:14 BP 153/82 01/20/20 11:45 Pulse Ox 100 01/20/20 11:45 Intake & Output 01/19/20 01/20/20 01/20/20 18:59 06:59 18:59 Intake Total 5280 240 Output Total 250 2000 1200 Balance -250 3280 -960 Weight 72.575 kg 72.575 kg Intake: Intake, IV Titration 800 Amount Sodium Chloride 0.9% 1, 750 000 ml @ 75 mls/hr IV . [id number] ANJELICA Rx#:[id number] cefTRIAXone 1 gm In 50 Sodium Chloride 0.9% 50 ml @ 100 mls/hr IVPB Q24H ANJELICA Rx#:[id number] Oral 4480 240 Output: Urine 250 2000 1200 Uretheral ([place]) 250 Other: Voiding Method Toilet # Voids 3 3 - Labs CBC & Chem 7: 01/20/20 07:18 01/20/20 07:18 Labs: Abnormal Lab Results - Last 24 Hours (Table) 01/19/20 01/19/20 01/20/20 Range/Units 14:41 17:34 07:18 WBC 15.8 H (3.8-10.6) k/uL RBC 4.05 L (4.30-5.90) m/uL Hgb 12.8 L (13.0-17.5) gm/dL Hct 38.1 L (39.0-53.0) % MCV 103.6 H D (80.0-100.0) fL Lymphocytes # 6.8 H (1.0-4.8) k/uL Chloride 116 H (98-107) mmol/L Carbon Dioxide 15 L (22-30) mmol/L BUN (9-20) mg/dL Creatinine (0.66-1.25) mg/dL Calcium 7.3 L (8.4-10.2) mg/dL Creatine Kinase (55-170) U/L Total Protein 5.9 L (6.3-8.2) g/dL Albumin 3.3 L (3.5-5.0) g/dL 01/20/20 Range/Units 07:18 WBC (3.8-10.6) k/uL RBC (4.30-5.90) m/uL Hgb (13.0-17.5) gm/dL Hct (39.0-53.0) % MCV (80.0-100.0) fL Lymphocytes # (1.0-4.8) k/uL Chloride 109 H (98-107) mmol/L Carbon Dioxide (22-30) mmol/L BUN 22 H (9-20) mg/dL Creatinine 1.50 H (0.66-1.25) mg/dL Calcium (8.4-10.2) mg/dL Creatine Kinase 404 H (55-170) U/L Total Protein (6.3-8.2) g/dL Albumin (3.5-5.0) g/dL Assessment and Plan Assessment: * 64-year-old male with long-standing history of seizure disorder, came with breakthrough seizure of unclear cause. Patient states he is compliant with medication. Patient already on optimal dose of 2 antiepileptic medications. Patient possibly has medically intractable epilepsy. No evidence of hyponatremia noted on current admission. Plan: * I spoke to patient's daughter in detail. He gets seizures off and on, once or twice every few months. Patient's previous Lamictal level was 2.7 (2-15), and Keppra level was 28.8 (3-60) on 11/25/2019. Current levels are pending, uncertain how long would it take to get the results. * We will increase dose of Lamictal to 250 mg twice a day. Continue same dose of Keppra 1500 mg twice a day for now. * Patient had multiple EEGs performed in the past, which were negative. Suggest patient referral to an epilepsy monitoring unit, at [facility] or [facility] for video EEG monitoring to evaluate for localization of epilepsy, rule out psychogenic nonepileptic seizures. Discussed with patient's daughter in detail. She will speak to patient's neurologist Dr. Mijares to arrange this evaluation. * Neurologically clear for discharge.
--- NOTE | 2020-01-20 18:31 | PN ---
PROGRESS NOTE DATE OF SERVICE: 01/10/2020 This 64-year-old gentleman who was admitted with recurrent seizures also had COPD. The patient is being closely monitored at this time. Brain CT was noted and Dr. Rueda from Neurology saw the patient and recommended continuing the Lamictal and Keppra. Epilepsy monitoring service to rule out psychogenic and nonepileptic seizures was also recommended by Dr. Rueda. The patient is being closely monitored. A CT scan of the brain was negative. No chest pain. No palpitation. PHYSICAL EXAMINATION: Alert and oriented x3. Pulse 57, blood pressure 153/82, respirations 17, temperature 97.7, pulse 100% on room air. HEENT: Conjunctivae normal. NECK: No jugular venous distention. CARDIOVASCULAR SYSTEM: S1, S2 muffled. RESPIRATORY SYSTEM: Breath sounds diminished at the bases. No rhonchi. No crackles. ABDOMEN: Soft, non-tender. LEGS: No edema. No swelling. NERVOUS SYSTEM: No focal deficit. LABS: WBC 8.2, hemoglobin 12.8, and CO2 is 23. Creatinine is 1.50 and CK is 404. ASSESSMENT: 1. Seizure disorder with recurrent seizures and breakthrough seizures. 2. History of chronic obstructive pulmonary disease. 3. Decreased carbon dioxide, present on admission. 4. History of congestive heart failure, ejection fraction unknown. 5. History of gastroesophageal reflux disease. 6. Hypertension. 7. History of seizure disorder. 8. History of hypothyroidism. 9. History of memory impairment. 10.History of legal incapacity. 11.Small hiatal hernia. 12.History of degenerative joint disease. 13.History of endoscopic retrograde cholangiopancreatography. 14.History of anxiety, bipolar, depression. 15.Schizophrenia. 16.Nicotine dependence. 17.History of ethanol. 18.History of tetrahydrocannabinol. 19.FULL CODE. RECOMMENDATIONS AND DISCUSSION: In this 64-year-old gentleman who presented with multiple complex medical issues, we will monitor the patient closely, continue the current medications, continue symptomatic treatment. Closely monitor with Neurology. Recommend UA with micro. Otherwise, continue the rest of the medications. Prognosis extremely guarded because of multiple complex medical issues. Further recommendations to follow. MMODL / IJN: [id number] /
[2020-01-20 19:00] LABS: Appearance,Urine Clear (Clear); Bilirubin,Urine Negative (Negative); Blood,Urine Negative (Negative); Color,Urine Colorless; Glucose,Urine (UA) Negative (Negative); Ketones,Urine Negative (Negative); Leukocyte Esterase,Urine Negative (Negative); Nitrite,Urine Negative (Negative); PH, Urine 5.5 (5.0-8.0); Protein,Urine Negative (Negative); Specific Gravity,Urine 1.006 (1.001-1.035); Urobilinogen,Urine <2.0 mg/dL (<2.0)
[2020-01-20] MEDS: MONTELUKAST 10 MG TAB PO SCH (20:24)
[2020-01-20] MEDS: QUEtiapine 50 MG TAB PO SCH (20:25)
[2020-01-20 21:10] VITALS: RESP 16
[2020-01-21] MEDS: SODIUM CHLORIDE 0.9% 1,000 ML IV SCH (00:27)
[2020-01-21] MEDS: LEVOTHYROXINE 75 MCG TAB PO SCH (05:47)
[2020-01-21 08:01] LABS: Lamotrigine (Lamictal) 2.1 ug/mL (2.0-15.0)
[2020-01-21 08:03] LABS: Levetiracetam (Keppra) 20.5 ug/mL (3.0-60.0)
[2020-01-21] MEDS: IPRATROPIUM-ALBUTEROL 3 ML NEB INHALATION SCH ×2 (08:04→13:46)
[2020-01-21 08:07] LABS: Basophils % (A) 0 %; Eosinophils # (A) 0.1 k/uL (0-0.7); Eosinophils % (A) 1 %; HCT 38.8 % (39.0-53.0); Lymphocytes # (A) 1.6 k/uL (1.0-4.8); Lymphocytes % (A) 17 %; MCH 32.1 pg (25.0-35.0); MCHC 33.4 g/dL (31.0-37.0); MCV 96.1 fL (80.0-100.0); Mean Platelet Volume 7.5; Monocytes # (A) 0.6 k/uL (0-1.0); Monocytes % (A) 6 %; Neutrophils # (A) 6.7 k/uL (1.3-7.7); Neutrophils % (A) 73 %; Platelet Count 230 k/uL (150-450); RBC 4.03 m/uL (4.30-5.90); RDW 13.1 % (11.5-15.5); WBC 9.1 k/uL (3.8-10.6)
[2020-01-21 08:13] LABS: Calcium 9.2 mg/dL (8.4-10.2); Potassium 4.5 mmol/L (3.5-5.1)
[2020-01-21] MEDS: THIAMINE 100 MG TAB PO SCH (10:41)
[2020-01-21] MEDS: lamoTRIgine 100 MG TAB PO SCH (10:41)
[2020-01-21] MEDS: FOLIC ACID 1 MG TAB PO SCH (10:41)
[2020-01-21] MEDS: PANTOPRAZOLE 40 MG TABLET PO SCH (10:41)
[2020-01-21] MEDS: HEPARIN SODIUM,PORCINE 5,000 UNIT/ML 1 ML VIAL SQ SCH (10:41)
[2020-01-21] MEDS: lamoTRIgine 25 MG TAB PO SCH (10:41)
[2020-01-21] MEDS: NICOTINE 14MG/24HR PATCH TRANSDERM SCH (10:42)
[2020-01-21] MEDS: METOPROLOL TARTRATE 25 MG TAB PO SCH (10:42)
[2020-01-21] MEDS: MULTIVITAMINS, THERA 1 EACH TAB PO SCH (10:42)
[2020-01-21] MEDS: VENLAFAXINE HCL ER 75 MG CAP PO SCH (10:42)
[2020-01-21 11:55] VITALS: BP 151/87; TEMP 98.1
--- NOTE | 2020-01-21 13:39 | P.DS ---
Providers Date of admission: 01/19/20 17:44 Attending physician: Derrell Sierra Consults: 01/19/20 17:44 Consult Physician Urgent Consulting Provider: Bere Rueda Consult Reason/Comments: Status epilepticus Do you want consulting provider notified?: Yes Primary care physician: Lucia [facility] Course: Diagnoses: History of seizure with a breakthrough seizure on the presentation Hypertension Hypothyroidism COPD, not acute exacerbation Mammary impairment and thecal incapacity as per documentation Small hiatal hernia Schizophrenia Nicotine dependence History of alcohol abuse Hospital course: This is a pleasant 64 years old male with multiple medical problems as above, who presents with seizure, patient has been evaluated by neurologist service Patient has no more seizure while in hospital, his Lamictal dose was increased from 225 up to 250 mg twice a day, continue with Keppra 1500 twice a day. Lipitor level on 01/18 was 2.1 with reference 2.0-15.0 and Keppra level was 20.5 with reference 3.0-60.0. No more seizure, no other complaints, patient is mobile in the room with no difficulty, no headache or weakness or abnormal sensation Patient was cleared for discharge by neurologist Problems and management plan were discussed with the patient and he verbalized understanding and acceptance Patient was found stable and can be discharged home however he needs follow-up as an outpatient. Patient was instructed to follow up with PCP within one week and patient agrees. I discussed the case with his daughter and cardiac perspective, she agrees with the plan and the discharge and patient today, she appears also with appointment with his neurologist Dr. Castro and 02/02 at the time and the stitch for follow-up. She said she has Keppra at home and recommended the Lamictal and she agrees with prescription for XL 50 mg of Lamictal as well as Effexor which is provided for her Gen: patient is a AAOx2-3, no distress CVS: S1-S2, RRR, no murmur Lungs: B/L CTA, no wheezing Abdomen: soft, no distention, no tenderness, positive bowel sounds Extremity: no leg edema or induration Time spent more than 35 minutes Plan - Discharge Summary New Discharge Prescriptions: New Folic Acid 1 mg PO DAILY@1200 #15 tab Nicotine 14Mg/24Hr Patch [Habitrol] 1 patch TRANSDERM DAILY #7 patch lamoTRIgine [LaMICtal] 50 mg PO BID #30 tab Multivitamins, Thera [Multivitamin (formulary)] 1 each PO DAILY@1200 #15 tab Thiamine [Vitamin B-1] 100 mg PO BID-W/MEALS #30 tab Continue Metoprolol Tartrate [Lopressor] 25 mg PO BID Montelukast [Singulair] 10 mg PO HS QUEtiapine [SEROquel] 50 mg PO HS Levothyroxine Sodium [Synthroid] 75 mcg PO DAILY Famotidine 20 mg PO HS levETIRAcetam [Keppra] 1,500 mg PO BID #60 tab Simethicone [Gas-X] 125 mg PO ACHS PRN PRN Reason: gas & bloating lamoTRIgine [LaMICtal] 200 mg PO BID #60 tab Venlafaxine HCl [Effexor XR] 225 mg PO DAILY #30 cap Discontinued lamoTRIgine [LaMICtal] 25 mg PO BID #60 tab Discharge Medication List Metoprolol Tartrate [Lopressor] 25 mg PO BID 08/08/17 [History] Montelukast [Singulair] 10 mg PO HS 12/30/17 [History] QUEtiapine [SEROquel] 50 mg PO HS 01/15/18 [History] Levothyroxine Sodium [Synthroid] 75 mcg PO DAILY 02/20/18 [History] Famotidine 20 mg PO HS 11/25/19 [History] levETIRAcetam [Keppra] 1,500 mg PO BID #60 tab 11/27/19 [Rx] Simethicone [Gas-X] 125 mg PO ACHS PRN 01/19/20 [History] Folic Acid 1 mg PO DAILY@1200 #15 tab 01/21/20 [Rx] Multivitamins, Thera [Multivitamin (formulary)] 1 each PO DAILY@1200 #15 tab 01/21/20 [Rx] Nicotine 14Mg/24Hr Patch [Habitrol] 1 patch TRANSDERM DAILY #7 patch 01/21/20 [Rx] Thiamine [Vitamin B-1] 100 mg PO BID-W/MEALS #30 tab 01/21/20 [Rx] Venlafaxine HCl [Effexor XR] 225 mg PO DAILY #30 cap 01/21/20 [Rx] lamoTRIgine [LaMICtal] 50 mg PO BID #30 tab 01/21/20 [Rx] lamoTRIgine [LaMICtal] 200 mg PO BID #60 tab 01/21/20 [Rx] Follow up Appointment(s)/Referral(s): [facility], [NON-STAFF] - Lucia Kc MD [Primary Care Provider] - 1-2 days (patient will make appt ) Connie Castro MD [Medical Doctor] - 02/03/20 9:30 am () Activity/Diet/Wound Care/Special Instructions: pt needs Effexor script for home, he is all out Discharge Disposition: HOME SELF-CARE
[2020-01-21 13:53] VITALS: PULSE 64
[2020-01-21] MEDS ORDERED: lamoTRIgine 25 MG TAB PO SCH (21:00)
== END 2020-01-21 16:10 | disposition home or self-care (01) | DRG 101 ==
LOC: EC 14:34 → 5NMEDONC 17:44
PROVIDERS: ADMIT Hospitalist; ATTEND Hospitalist
DX: G40.401 Other generalized epilepsy and epileptic syndromes, not intractable, with status epilepticus (principal); I50.32 Chronic diastolic (congestive) heart failure; I11.0 Hypertensive heart disease with heart failure; J44.9 Chronic obstructive pulmonary disease, unspecified; Z96.651 Presence of right artificial knee joint; F31.9 Bipolar disorder, unspecified; F20.9 Schizophrenia, unspecified; E03.9 Hypothyroidism, unspecified; K44.9 Diaphragmatic hernia without obstruction or gangrene; Z79.890 Hormone replacement therapy; Z79.899 Other long term (current) drug therapy; Z82.49 Family history of ischemic heart disease and other diseases of the circulatory system
CPT/HCPCS: 36415; 51702; 70450; 71045; 80048; 80053; 80175; 80177; 80306; 81003; 82550; 85025; 85610; 85730; 87502; 93005; 94640; 94760; 99285

== ENCOUNTER 2020-01-21 19:40 | Inpatient (IN) | payer MEDICARE ==
[2020-01-21] MEDS ORDERED: SODIUM CHLORIDE 0.9% 1,000 ML IV STA ×3 (19:53→21:02)
--- NOTE | 2020-01-21 19:53 | ED ---
Seizure HPI - General Stated Complaint: seizure Time Seen by Provider: 01/21/20 19:41 Source: RN notes reviewed, old records reviewed Limitations: altered mental status - History of Present Illness MD Complaint: seizure -: minutes(s) Description of Episode: loss of consciousness, bladder incontinence, post-event confusion, other (Patient remains unresponsive with 10 mg of versed) -: second(s) Witnessed: yes - by bystander, yes - by EMS Trauma: No Seizure History: known seizure disorder Place: home Possible Precipitating Event: none Associated Symptoms: denies other symptoms Treatments Prior to Arrival: none - Related Data Home Medications Medication Instructions Recorded Confirmed Metoprolol Tartrate [Lopressor] 25 mg PO BID 08/08/17 01/19/20 Montelukast [Singulair] 10 mg PO HS 12/30/17 01/19/20 QUEtiapine [SEROquel] 50 mg PO HS 01/15/18 01/19/20 Levothyroxine Sodium [Synthroid] 75 mcg PO DAILY 02/20/18 01/19/20 Famotidine 20 mg PO HS 11/25/19 01/19/20 Simethicone [Gas-X] 125 mg PO ACHS PRN 01/19/20 01/19/20 Previous Rx's Medication Instructions Recorded levETIRAcetam [Keppra] 1,500 mg PO BID #60 tab 11/27/19 Folic Acid 1 mg PO DAILY@1200 #15 tab 01/21/20 Multivitamins, Thera [Multivitamin 1 each PO DAILY@1200 #15 tab 01/21/20 (formulary)] Nicotine 14Mg/24Hr Patch [Habitrol] 1 patch TRANSDERM DAILY #7 patch 01/21/20 Thiamine [Vitamin B-1] 100 mg PO BID-W/MEALS #30 tab 01/21/20 Venlafaxine HCl [Effexor XR] 225 mg PO DAILY #30 cap 01/21/20 lamoTRIgine [LaMICtal] 50 mg PO BID #30 tab 01/21/20 lamoTRIgine [LaMICtal] 200 mg PO BID #60 tab 01/21/20 Allergies Allergy/AdvReac Type Severity Reaction Status Date / Time No Known Allergies Allergy Verified 01/19/20 15:56 Review of Systems ROS Statement: Those systems with pertinent positive or pertinent negative responses have been documented in the HPI. ROS Other: All systems not noted in ROS Statement are negative. Past Medical History Past Medical History: Chest Pain / Angina, Heart Failure, COPD, GERD/Reflux, Hypertension, Seizure Disorder, Thyroid Disorder Additional Past Medical History / Comment(s): falls,bronchitis,Memory impairment, legally incapacitated, hypothyroid, small hiatal hernia, diverticulosis History of Any Multi-Drug Resistant Organisms: None Reported Past Surgical History: Hernia Repair, Joint Replacement, Orthopedic Surgery Additional Past Surgical History / Comment(s): 08/2017 EGGD/colonoscopy, prior colonoscopy, umbilical hernia repair, L total knee, R partial knee replacement, R lower leg fracture with ORIF (hardware in place), ERCP, bilateral knee arthroscopies. Past Anesthesia/Blood Transfusion Reactions: No Reported Reaction Past Psychological History: Anxiety, Bipolar, Depression, Schizophrenia Smoking Status: Current every day smoker Past Alcohol Use History: Occasional Past Drug Use History: Marijuana - Past Family History Father Family Medical History: Cancer, Coronary Artery Disease (CAD), Pneumonia Additional Family Medical History / Comment(s): Father had a pacemaker. He of pneumonia. Mother Family Medical History: Coronary Artery Disease (CAD), CVA/TIA General Exam Limitations: altered mental status (Postictal state) General appearance: alert, in no apparent distress Head exam: Present: atraumatic, normocephalic, normal inspection Eye exam: Present: normal appearance, PERRL, EOMI. Absent: scleral icterus, conjunctival injection, periorbital swelling ENT exam: Present: normal exam, mucous membranes moist Neck exam: Present: normal inspection. Absent: tenderness, meningismus, lymphadenopathy Respiratory exam: Present: normal lung sounds bilaterally. Absent: respiratory distress, wheezes, rales, rhonchi, stridor Cardiovascular Exam: Present: regular rate, normal rhythm, normal heart sounds. Absent: systolic murmur, diastolic murmur, rubs, gallop, clicks GI/Abdominal exam: Present: soft, normal bowel sounds. Absent: distended, tenderness, guarding, rebound, rigid Extremities exam: Present: normal inspection, full ROM, normal capillary refill. Absent: tenderness, pedal edema, joint swelling, calf tenderness Back exam: Present: normal inspection Neurological exam: Present: alert, oriented X3, CN II-XII intact Psychiatric exam: Present: normal affect, normal mood Skin exam: Present: warm, dry, intact, normal color. Absent: rash Course Vital Signs 01/21/20 19:50 Temperature 98 F Pulse Rate 94 Respiratory 22 Rate Blood Pressure 143/73 O2 Sat by Pulse 97 Oximetry - Reevaluation(s) Reevaluation #1: 01/21/20 21:17 Medical record is reviewed Reevaluation #2: 01/21/20 21:17 Patient still remains postictal and unresponsive Reevaluation #3: 01/21/20 21:22 patient remains postictal and under the efffects of versed - Consultations Consultation #1: spoke w [facility] ok for admission Medical Decision Making - Medical Decision Making 64 male to the ER for evaluation recurrent seizure with prolonged postictal period. Patient will be admitted for evaluation and treatment. Patient otherwise has no significant travel history or sick contacts. Patient still postictal here in the ER unable history history obtained from prior charting prior admission and EMS, will admit for seizure postictal and Hyponatremia - Lab Data Result diagrams: 01/21/20 20:11 01/21/20 20:11 Lab Results 01/21/20 01/21/20 01/21/20 Range/Units 20:02 20:11 20:11 WBC 13.3 H (3.8-10.6) k/uL RBC 3.63 L (4.30-5.90) m/uL Hgb 11.7 L (13.0-17.5) gm/dL Hct 34.6 L (39.0-53.0) % MCV 95.2 (80.0-100.0) fL MCH 32.1 (25.0-35.0) pg MCHC 33.7 (31.0-37.0) g/dL RDW 13.2 (11.5-15.5) % Plt Count 243 (150-450) k/uL Neutrophils % 77 % Lymphocytes % 13 % Monocytes % 7 % Eosinophils % 1 % Basophils % 0 % Neutrophils # 10.2 H (1.3-7.7) k/uL Lymphocytes # 1.7 (1.0-4.8) k/uL Monocytes # 0.9 (0-1.0) k/uL Eosinophils # 0.1 (0-0.7) k/uL Basophils # 0.0 (0-0.2) k/uL Sodium 125 L (137-145) mmol/L Potassium 4.6 (3.5-5.1) mmol/L Chloride 92 L (98-107) mmol/L Carbon Dioxide 14 L (22-30) mmol/L Anion Gap 19 mmol/L BUN 15 (9-20) mg/dL Creatinine 1.18 (0.66-1.25) mg/dL Est GFR (CKD-EPI)AfAm 76 (>60 ml/min/1.73 sqM) Est GFR (CKD-EPI)NonAf 66 (>60 ml/min/1.73 sqM) Glucose 86 (74-99) mg/dL POC Glucose (mg/dL) 101 H (75-99) mg/dL POC Glu [employer] Internship ID Arabella Palencia Calcium 8.6 (8.4-10.2) mg/dL Phosphorus 4.8 H (2.5-4.5) mg/dL Magnesium 2.0 (1.6-2.3) mg/dL Total Bilirubin 0.5 (0.2-1.3) mg/dL AST 84 H (17-59) U/L ALT 46 (4-49) U/L Alkaline Phosphatase 61 (38-126) U/L Total Protein 6.6 (6.3-8.2) g/dL Albumin 4.2 (3.5-5.0) g/dL Urine Color Urine Appearance (Clear) Urine pH (5.0-8.0) Ur Specific [place] (1.001-1.035) Urine Protein (Negative) Urine Glucose (UA) (Negative) Urine Ketones (Negative) Urine Blood (Negative) Urine Nitrite (Negative) Urine Bilirubin (Negative) Urine Urobilinogen (<2.0) mg/dL Ur Leukocyte Esterase (Negative) Urine RBC (0-5) /hpf Urine WBC (0-5) /hpf Ur Squamous Epith Cells (0-4) /hpf Amorphous Sediment (None) /hpf Urine Bacteria (None) /hpf Hyaline Casts (0-2) /lpf Urine Mucus (None) /hpf Salicylates <1.0 mg/dL Acetaminophen <10.0 ug/mL Phenytoin <3.0 ug/mL Valproic Acid <10.0 ug/mL Carbamazepine <3.0 ug/mL [place] <0.2 mmol/L Serum Alcohol <10 mg/dL 03/18/20 Range/Units 20:26 WBC (3.8-10.6) k/uL RBC (4.30-5.90) m/uL Hgb (13.0-17.5) gm/dL Hct (39.0-53.0) % MCV (80.0-100.0) fL MCH (25.0-35.0) pg MCHC (31.0-37.0) g/dL RDW (11.5-15.5) % Plt Count (150-450) k/uL Neutrophils % % Lymphocytes % % Monocytes % % Eosinophils % % Basophils % % Neutrophils # (1.3-7.7) k/uL Lymphocytes # (1.0-4.8) k/uL Monocytes # (0-1.0) k/uL Eosinophils # (0-0.7) k/uL Basophils # (0-0.2) k/uL Sodium (137-145) mmol/L Potassium (3.5-5.1) mmol/L Chloride (98-107) mmol/L Carbon Dioxide (22-30) mmol/L Anion Gap mmol/L BUN (9-20) mg/dL Creatinine (0.66-1.25) mg/dL Est GFR (CKD-EPI)AfAm (>60 ml/min/1.73 sqM) Est GFR (CKD-EPI)NonAf (>60 ml/min/1.73 sqM) Glucose (74-99) mg/dL POC Glucose (mg/dL) (75-99) mg/dL POC Glu [employer] Internship ID Calcium (8.4-10.2) mg/dL Phosphorus (2.5-4.5) mg/dL Magnesium (1.6-2.3) mg/dL Total Bilirubin (0.2-1.3) mg/dL AST (17-59) U/L ALT (4-49) U/L Alkaline Phosphatase (38-126) U/L Total Protein (6.3-8.2) g/dL Albumin (3.5-5.0) g/dL Urine Color Light Yellow Urine Appearance Cloudy (Clear) Urine pH 5.0 (5.0-8.0) Ur Specific [place] 1.008 (1.001-1.035) Urine Protein Trace H (Negative) Urine Glucose (UA) Negative (Negative) Urine Ketones 1+ H (Negative) Urine Blood Moderate H (Negative) Urine Nitrite Negative (Negative) Urine Bilirubin Negative (Negative) Urine Urobilinogen <2.0 (<2.0) mg/dL Ur Leukocyte Esterase Negative (Negative) Urine RBC 2 (0-5) /hpf Urine WBC 3 (0-5) /hpf Ur Squamous Epith Cells <1 (0-4) /hpf Amorphous Sediment Rare H (None) /hpf Urine Bacteria Rare H (None) /hpf Hyaline Casts 7 H (0-2) /lpf Urine Mucus Rare H (None) /hpf Salicylates mg/dL Acetaminophen ug/mL Phenytoin ug/mL Valproic Acid ug/mL Carbamazepine ug/mL [place] mmol/L Serum Alcohol mg/dL - EKG Data -: EKG Interpreted by Me (EKG shows sinus rhythm of 93, MA 196, QRS 132, QTC 494) - Radiology Data Radiology results: report reviewed (CT brain is negative for acute disease), image reviewed Critical Care Time Critical Care Time: Yes Total Critical Care Time: 31 Disposition Clinical Impression: Epileptic seizure, generalized, Acidosis, metabolic, Intractable seizure disorder, Post-ictal confusion, Hyponatremia Disposition: ADMITTED IP TO THIS [facility] Condition: Fair Is patient prescribed a controlled substance at d/c from ED?: No Referrals: Lucia Kc MD [Primary Care Provider] - 1-2 days
[2020-01-21] MEDS ORDERED: levETIRAcetam IV 1,500 MG in SALINE 1 100ML.BAG IVPB STA (19:54)
[2020-01-21 20:03] LABS: Glucose,Whole Blood 101 mg/dL (75-99)
[2020-01-21 20:22] LABS: Basophils % (A) 0 %; Eosinophils # (A) 0.1 k/uL (0-0.7); Eosinophils % (A) 1 %; HCT 34.6 % (39.0-53.0); HGB 11.7 gm/dL (13.0-17.5); Lymphocytes # (A) 1.7 k/uL (1.0-4.8); Lymphocytes % (A) 13 %; MCH 32.1 pg (25.0-35.0); MCHC 33.7 g/dL (31.0-37.0); MCV 95.2 fL (80.0-100.0); Mean Platelet Volume 7.4; Monocytes # (A) 0.9 k/uL (0-1.0); Monocytes % (A) 7 %; Neutrophils # (A) 10.2 k/uL (1.3-7.7); Neutrophils % (A) 77 %; Platelet Count 243 k/uL (150-450); RBC 3.63 m/uL (4.30-5.90); RDW 13.2 % (11.5-15.5); WBC 13.3 k/uL (3.8-10.6)
[2020-01-21 20:36] LABS: AST 84 U/L (17-59); Acetaminophen <10.0 ug/mL; African American GFR (CKD) 76 (>60 ml/min/1.73 sqM); Albumin 4.2 g/dL (3.5-5.0); Alcohol <10 mg/dL; Alkaline Phosphatase 61 U/L (38-126); Anion Gap 19 mmol/L; Blood Urea Nitrogen 15 mg/dL (9-20); Calcium 8.6 mg/dL (8.4-10.2); Carbamazepine (Tegretol) <3.0 ug/mL; Carbon Dioxide 14 mmol/L (22-30); Chloride 92 mmol/L (98-107); Glucose 86 mg/dL (74-99); Lithium <0.2 mmol/L; Non-African American GFR(CKD) 66 (>60 ml/min/1.73 sqM); Phenytoin (Dilantin) <3.0 ug/mL; Phosphorus 4.8 mg/dL (2.5-4.5); Potassium 4.6 mmol/L (3.5-5.1); Salicylate <1.0 mg/dL; Sodium 125 mmol/L (137-145); Total Bilirubin 0.5 mg/dL (0.2-1.3); Total Protein 6.6 g/dL (6.3-8.2)
[2020-01-21 20:40] LABS: ALT 46 U/L (4-49); Valproic Acid (Depakene) <10.0 ug/mL
--- NOTE | 2020-01-21 20:55 | CT ---
EXAMINATION TYPE: CT brain wo con DATE OF EXAM: 01/21/2020 COMPARISON: 01/19/2020 HISTORY: Seizure activity. CT DLP: 2332.4 mGycm Automated exposure control for dose reduction was used. Ventricles and sulci appear normal. There is no mass effect nor midline shift. There is no sign of in tracranial hemorrhage. The calvarium is intact. There is no evidence of cerebral edema. Skull base is intact. IMPRESSION: Negative CT scan of the brain. No change.
--- NOTE | 2020-01-21 20:57 | XR ---
EXAMINATION TYPE: XR wrist complete BILATERAL DATE OF EXAM: 01/21/2020 COMPARISON: NONE HISTORY: Pain. Seizure. TECHNIQUE: 4 views each wrist FINDINGS: There are some cystic changes in the left side distal scaphoid bone. There is narrowing and spurring of the left side first carpometacarpal joint. There is similar change in the first carpomet acarpal joint of the right wrist. Radiocarpal joint spaces are fairly normal. I see no fracture nor d islocation. There is no evidence of a scaphoid fracture. 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 Degenerative cystic changes in the l eft side distal scaphoid bone. No fracture seen.
[2020-01-21] MEDS ORDERED: SODIUM CHLORIDE 0.9% 500 ML 500 ML IV STA (21:02)
[2020-01-21 21:15] LABS: Amorphous Sediment,Urine Rare /hpf; Appearance,Urine Cloudy (Clear); Bacteria,Urine Rare /hpf; Bilirubin,Urine Negative (Negative); Blood,Urine Moderate (Negative); Color,Urine Light Yellow; Glucose,Urine (UA) Negative (Negative); Hyaline Casts,Urine 7 /lpf (0-2); Ketones,Urine 1+ (Negative); Leukocyte Esterase,Urine Negative (Negative); Mucus,Urine Rare /hpf; Nitrite,Urine Negative (Negative); Protein,Urine Trace (Negative); RBC,Urine 2 /hpf (0-5); Specific Gravity,Urine 1.008 (1.001-1.035); Squamous Epithelial Cell,Urine <1 /hpf (0-4); Urobilinogen,Urine <2.0 mg/dL (<2.0); WBC,Urine 3 /hpf (0-5)
[2020-01-21 21:19] LABS: Amphetamine Screen,Urine Not Detected (NotDetected); Barbiturate Screen,Urine Not Detected (NotDetected); Benzodiazepines Screen,Urine Not Detected (NotDetected); Cocaine Screen,Urine Not Detected (NotDetected); Methadone Screen, Urine Not Detected (NotDetected); Opiate Screen,Urine Not Detected (NotDetected); Oxycodone Screen, Urine Not Detected (NotDetected); Phencyclidine Screen,Urine Not Detected (NotDetected); Tricyclic Antidepressant,Urine Not Detected (NotDetected); Urn Cannabinoid Scrn Not Detected (NotDetected)
[2020-01-21] MEDS ORDERED: LORazepam 2 MG/ML INJ IV PRN ×4 (21:45)
--- NOTE | 2020-01-22 00:55 | XR ---
EXAMINATION TYPE: XR ribs LT DATE OF EXAM: 01/22/2020 COMPARISON: NONE HISTORY: Pain TECHNIQUE: 4 views FINDINGS: There is no pleural effusion or pneumothorax. Left lung is clear of infiltrate. I see no ri b fracture. IMPRESSION: Negative left rib exam. No fracture seen. No change compared to chest x-ray of 01/19/2020.
[2020-01-22] MEDS: LEVOTHYROXINE 75 MCG TAB PO SCH (05:41)
[2020-01-22] MEDS: THIAMINE 100 MG TAB PO SCH ×2 (07:21→17:20)
[2020-01-22] MEDS: FOLIC ACID 1 MG TAB PO SCH (07:22)
[2020-01-22] MEDS: METOPROLOL TARTRATE 25 MG TAB PO SCH ×2 (07:22→22:14)
[2020-01-22] MEDS: ENOXAPARIN 40 MG/0.4 ML SYRINGE SQ SCH (07:22)
[2020-01-22] MEDS: NICOTINE 14MG/24HR PATCH TRANSDERM SCH (07:22)
[2020-01-22] MEDS: VENLAFAXINE HCL ER 75 MG CAP PO SCH (07:22)
[2020-01-22] MEDS: MULTIVITAMINS, THERA 1 EACH TAB PO SCH (07:22)
[2020-01-22 08:02] LABS: Basophils % (A) 0 %; Eosinophils # (A) 0.1 k/uL (0-0.7); Eosinophils % (A) 1 %; HCT 39.6 % (39.0-53.0); HGB 13.2 gm/dL (13.0-17.5); Lymphocytes # (A) 1.2 k/uL (1.0-4.8); Lymphocytes % (A) 14 %; MCH 31.6 pg (25.0-35.0); MCHC 33.4 g/dL (31.0-37.0); MCV 94.6 fL (80.0-100.0); Mean Platelet Volume 7.7; Monocytes # (A) 0.6 k/uL (0-1.0); Monocytes % (A) 7 %; Neutrophils # (A) 6.2 k/uL (1.3-7.7); Neutrophils % (A) 75 %; Platelet Count 255 k/uL (150-450); RBC 4.18 m/uL (4.30-5.90); RDW 13.2 % (11.5-15.5); WBC 8.3 k/uL (3.8-10.6)
[2020-01-22] MEDS ORDERED: HYDROcodone/APAP 5-325MG 1 EACH TAB PO PRN (08:15)
[2020-01-22 08:16] LABS: ALT 55 U/L (4-49); AST 236 U/L (17-59); African American GFR (CKD) >90 (>60 ml/min/1.73 sqM); Albumin 4.1 g/dL (3.5-5.0); Alkaline Phosphatase 73 U/L (38-126); Anion Gap 9 mmol/L; Blood Urea Nitrogen 14 mg/dL (9-20); Calcium 8.9 mg/dL (8.4-10.2); Carbon Dioxide 19 mmol/L (22-30); Chloride 111 mmol/L (98-107); Glucose 61 mg/dL (74-99); Non-African American GFR(CKD) 80 (>60 ml/min/1.73 sqM); Potassium 4.5 mmol/L (3.5-5.1); Sodium 139 mmol/L (137-145); Total Bilirubin 0.8 mg/dL (0.2-1.3); Total Protein 6.8 g/dL (6.3-8.2)
[2020-01-22] MEDS ORDERED: lamoTRIgine 25 MG TAB PO SCH (09:00)
--- NOTE | 2020-01-22 12:10 | P.HPIM ---
History of Present Illness This is a pleasant 64 years old male with multiple medical problems as above, who presents with seizure, patient was just discharged yesterday for seizure on symptoms of Keppra 1500 mg twice daily and Lamictal dose increased from 225 up to 250 mg twice daily for low normal level. However after he went home he developed procedure with left sided chest trauma so he came to emergency room. Patient is poor historian and could not provide information, patient states he cannot remember what happened and he knew that he had another seizure when he came to the hospital. Patient looks like was not getting Keppra until the day of discharge yesterday Which might contributed to his seizure, Today patient was restarted on Lamictal to 50 mg twice a day and Keppra 1500 mg twice a day, discussed with the bedside nurse and confirmed patient is getting this medication this morning Patient has some pain in his left chest but repeat x-rays negative for fracture, patient did not want a [place] this morning, start lidocaine and incentive spirometry Review of Systems CONSTITUTIONAL: No fever, no malaise, no fatigue. HEENT: No recent visual problems or hearing problems. Denied any sore throat. CARDIOVASCULAR: No orthopnea, PND, no palpitations, no syncope. PULMONARY: No shortness of breath, no cough, no hemoptysis. GASTROINTESTINAL: No diarrhea, no nausea, no vomiting, no abdominal pain. Normoactive bowel sounds. NEUROLOGICAL: No headaches, no weakness, no numbness. HEMATOLOGICAL: Denies any bleeding or petechiae. GENITOURINARY: Denies any burning micturition, frequency, or urgency. MUSCULOSKELETAL/RHEUMATOLOGICAL: Denies any joint pain, swelling, or any muscle pain. ENDOCRINE: Denies any polyuria or polydipsia. Past Medical History Past Medical History: Chest Pain / Angina, Heart Failure, COPD, GERD/Reflux, Hypertension, Seizure Disorder, Thyroid Disorder Additional Past Medical History / Comment(s): falls,bronchitis,Memory impairment, legally incapacitated, hypothyroid, small hiatal hernia, diverticulosis History of Any Multi-Drug Resistant Organisms: None Reported Past Surgical History: Hernia Repair, Joint Replacement, Orthopedic Surgery Additional Past Surgical History / Comment(s): 08/2017 EGGD/colonoscopy, prior colonoscopy, umbilical hernia repair, L total knee, R partial knee replacement, R lower leg fracture with ORIF (hardware in place), ERCP, bilateral knee arthroscopies. Past Anesthesia/Blood Transfusion Reactions: No Reported Reaction Past Psychological History: Anxiety, Bipolar, Depression, Schizophrenia Additional Psychological History / Comment(s): Pt resides with his daughter, Pat who is his coding clerks supervisor, legal gaurdian. Pt ambulates without device. He does not drive, daughter takes him to appts. Smoking Status: Current every day smoker Past Alcohol Use History: Occasional Additional Past Alcohol Use History / Comment(s): Pt started smoking in 1971 and is less than a ppd smoker on average. Past Drug Use History: Marijuana Additional Drug Use History / Comment(s): Pt occasionally smokes marijuana. - Past Family History Father Family Medical History: Cancer, Coronary Artery Disease (CAD), Pneumonia Additional Family Medical History / Comment(s): Father had a pacemaker. He of pneumonia. Mother Family Medical History: Coronary Artery Disease (CAD), CVA/TIA Medications and Allergies Home Medications Medication Instructions Recorded Confirmed Type Metoprolol Tartrate [Lopressor] 25 mg PO BID 08/08/17 01/21/20 History Montelukast [Singulair] 10 mg PO HS 12/30/17 01/21/20 History QUEtiapine [SEROquel] 50 mg PO HS 01/15/18 01/21/20 History Levothyroxine Sodium [Synthroid] 75 mcg PO DAILY 02/20/18 01/21/20 History Famotidine 20 mg PO HS 11/25/19 01/21/20 History levETIRAcetam [Keppra] 1,500 mg PO BID #60 tab 11/27/19 01/21/20 Rx Simethicone [Gas-X] 125 mg PO ACHS PRN 01/19/20 01/21/20 History Folic Acid 1 mg PO DAILY@1200 #15 tab 01/21/20 01/21/20 Rx Multivitamins, Thera [Multivitamin 1 tab PO DAILY@1200 01/21/20 01/21/20 History (formulary)] Nicotine 14Mg/24Hr Patch [Habitrol] 1 patch TRANSDERM DAILY #7 patch 01/21/20 01/21/20 Rx Thiamine [Vitamin B-1] 100 mg PO BID-W/MEALS #30 tab 01/21/20 01/21/20 Rx Venlafaxine HCl [Effexor XR] 225 mg PO DAILY #30 cap 01/21/20 01/21/20 Rx lamoTRIgine [LaMICtal] 50 mg PO BID #30 tab 01/21/20 01/21/20 Rx lamoTRIgine [LaMICtal] 200 mg PO BID #60 tab 01/21/20 01/21/20 Rx Allergies Allergy/AdvReac Type Severity Reaction Status Date / Time No Known Allergies Allergy Verified 01/19/20 15:56 Physical Exam Vitals: Vital Signs Temp Pulse Pulse Resp BP BP Pulse Ox 01/22/20 07:00 98.6 F 72 16 151/76 96 01/22/20 02:10 98.1 F 69 18 125/84 95 01/22/20 00:00 80 18 01/21/20 22:18 98.2 F 77 18 134/77 94 L 01/21/20 21:39 83 18 129/69 98 01/21/20 19:50 98 F 94 22 143/73 97 Intake and Output 01/21/20 01/22/20 01/22/20 22:59 06:59 14:59 Output Total 400 900 Balance -400 -900 Output: Urine 400 900 Other: Voiding Method Toilet Urinal # Voids 1 Weight 81.647 kg GENERAL: The patient is alert and oriented x3, not in any acute distress. Well developed, well nourished. HEENT: Pupils are round and equally reacting to light. EOMI. No scleral icterus. No conjunctival pallor. Normocephalic, atraumatic. No pharyngeal erythema. No thyromegaly. CARDIOVASCULAR: S1 and S2 present. No murmurs, rubs, or gallops. PULMONARY: Chest is clear to auscultation, no wheezing or crackles. ABDOMEN: Soft, nontender, nondistended, normoactive bowel sounds. No palpable organomegaly. MUSCULOSKELETAL: No joint swelling or deformity. EXTREMITIES: No cyanosis, clubbing, or pedal edema. NEUROLOGICAL: Gross neurological examination did not reveal any focal deficits. SKIN: No rashes. No petechiae Results CBC & Chem 7: 01/22/20 07:02 01/22/20 07:02 Labs: Abnormal Lab Results - Last 24 Hours (Table) 01/21/20 01/21/20 01/21/20 Range/Units 20:02 20:11 20:11 WBC 13.3 H (3.8-10.6) k/uL RBC 3.63 L (4.30-5.90) m/uL Hgb 11.7 L (13.0-17.5) gm/dL Hct 34.6 L (39.0-53.0) % Neutrophils # 10.2 H (1.3-7.7) k/uL Sodium 125 L (137-145) mmol/L Chloride 92 L (98-107) mmol/L Carbon Dioxide 14 L (22-30) mmol/L Glucose (74-99) mg/dL POC Glucose (mg/dL) 101 H (75-99) mg/dL Phosphorus 4.8 H (2.5-4.5) mg/dL AST 84 H (17-59) U/L ALT (4-49) U/L Urine Protein (Negative) Urine Ketones (Negative) Urine Blood (Negative) Amorphous Sediment (None) /hpf Urine Bacteria (None) /hpf Hyaline Casts (0-2) /lpf Urine Mucus (None) /hpf 01/21/20 01/22/20 01/22/20 Range/Units 20:26 07:02 07:02 WBC (3.8-10.6) k/uL RBC 4.18 L (4.30-5.90) m/uL Hgb (13.0-17.5) gm/dL Hct (39.0-53.0) % Neutrophils # (1.3-7.7) k/uL Sodium (137-145) mmol/L Chloride 111 H (98-107) mmol/L Carbon Dioxide 19 L (22-30) mmol/L Glucose 61 L (74-99) mg/dL POC Glucose (mg/dL) (75-99) mg/dL Phosphorus (2.5-4.5) mg/dL AST 236 H (17-59) U/L ALT 55 H (4-49) U/L Urine Protein Trace H (Negative) Urine Ketones 1+ H (Negative) Urine Blood Moderate H (Negative) Amorphous Sediment Rare H (None) /hpf Urine Bacteria Rare H (None) /hpf Hyaline Casts 7 H (0-2) /lpf Urine Mucus Rare H (None) /hpf Assessment and Plan Assessment: History of seizure with a breakthrough seizure on the presentation Hypertension Hypothyroidism COPD, not acute exacerbation Mammary impairment and thecal incapacity as per documentation Small hiatal hernia Schizophrenia Nicotine dependence History of alcohol abuse Plan: This is a pleasant 64 years old male who presents because of breakthrough seizure. Restart Lamictal and Keppra, neurology consult Pain management. Labs and medication were reviewed.. Continue same treatment. Continue with symptomatic treatment. Resume home medication. Monitor lytes and vitals. DVT and GI prophylaxis. Further recommendations of the clinical course of the patient DVT prophylaxis: Subcutaneous heparin GI Prophylaxis: Pepcid
[2020-01-22] MEDS: LIDOCAINE 5% PATCH TOPICAL SCH (12:58)
[2020-01-22] MEDS: lamoTRIgine 100 MG TAB PO SCH ×2 (12:59→22:14)
[2020-01-22] MEDS ORDERED: lamoTRIgine 100 MG TAB PO SCH ×2 (13:15→21:00)
--- NOTE | 2020-01-22 15:53 | P.CNNES ---
History of Present Illness Consult date: 01/22/20 Requesting physician: Ronen Baig Reason for Consult: Seizures History of Present Illness: Patient is a 64-year-old male, who was just seen in the hospital 3 days ago on 01/19/2020, in consultation for breakthrough seizures. Patient was seen for a follow-up, on 01/20/2020, adjusted his seizure medication, was discharged home the following day, which is yesterday, but came back the same evening, yesterday with seizures. Patient does not remember details. No family members present. Patient had an episode of loss of consciousness, bladder incontinence, post ictal confusion. He he suffered from soft tissue injury to the left wrist, trauma to left side of the chest. Patient at present back to baseline. Please refer to my previous note for details. Patient has not had any seizures since he arrived to the hospital. EKG showed normal sinus rhythm with right bundle branch block. X-ray of the ribs negative for fracture. X-ray of the left wrist showed osteoarthritis at the base of the thumb bilaterally. Degenerative cystic changes in the left side distal scaphoid bone. Computed tomography scan of head negative for any acute process. Patient's blood test shows WBC 13.3 hemoglobin 11.7 and platelets are 243. His sodium on arrival was 125, which has not improved to 139 today. AST is 84, ALT 46, on admission, but has gone up to 236 and 55 respectively. UA showed negative leukocyte esterase. Urine drug screen negative. Blood alcohol level negative. Review of Systems Soft tissue trauma to the left wrist, left side of the chest., Past Medical History Past Medical History: Chest Pain / Angina, Heart Failure, COPD, GERD/Reflux, Hypertension, Seizure Disorder, Thyroid Disorder Additional Past Medical History / Comment(s): falls,bronchitis,Memory impairment, legally incapacitated, hypothyroid, small hiatal hernia, diverticulosis History of Any Multi-Drug Resistant Organisms: None Reported Past Surgical History: Hernia Repair, Joint Replacement, Orthopedic Surgery Additional Past Surgical History / Comment(s): 08/2017 EGGD/colonoscopy, prior colonoscopy, umbilical hernia repair, L total knee, R partial knee replacement, R lower leg fracture with ORIF (hardware in place), ERCP, bilateral knee arthroscopies. Past Anesthesia/Blood Transfusion Reactions: No Reported Reaction Past Psychological History: Anxiety, Bipolar, Depression, Schizophrenia Additional Psychological History / Comment(s): Pt resides with his daughter, Pat who is his housing assistant, legal gaurdian. Pt ambulates without device. He does not drive, daughter takes him to appts. Smoking Status: Current every day smoker Past Alcohol Use History: Occasional Additional Past Alcohol Use History / Comment(s): Pt started smoking in 1971 and is less than a ppd smoker on average. Past Drug Use History: Marijuana Additional Drug Use History / Comment(s): Pt occasionally smokes marijuana. - Past Family History Father Family Medical History: Cancer, Coronary Artery Disease (CAD), Pneumonia Additional Family Medical History / Comment(s): Father had a pacemaker. He of pneumonia. Mother Family Medical History: Coronary Artery Disease (CAD), CVA/TIA Medications and Allergies Home Medications Medication Instructions Recorded Confirmed Type Metoprolol Tartrate [Lopressor] 25 mg PO BID 08/08/17 01/21/20 History Montelukast [Singulair] 10 mg PO HS 12/30/17 01/21/20 History QUEtiapine [SEROquel] 50 mg PO HS 01/15/18 01/21/20 History Levothyroxine Sodium [Synthroid] 75 mcg PO DAILY 02/20/18 01/21/20 History Famotidine 20 mg PO HS 11/25/19 01/21/20 History levETIRAcetam [Keppra] 1,500 mg PO BID #60 tab 11/27/19 01/21/20 Rx Simethicone [Gas-X] 125 mg PO ACHS PRN 01/19/20 01/21/20 History Folic Acid 1 mg PO DAILY@1200 #15 tab 01/21/20 01/21/20 Rx Multivitamins, Thera [Multivitamin 1 tab PO DAILY@1200 01/21/20 01/21/20 History (formulary)] Nicotine 14Mg/24Hr Patch [Habitrol] 1 patch TRANSDERM DAILY #7 patch 01/21/20 01/21/20 Rx Thiamine [Vitamin B-1] 100 mg PO BID-W/MEALS #30 tab 01/21/20 01/21/20 Rx Venlafaxine HCl [Effexor XR] 225 mg PO DAILY #30 cap 01/21/20 01/21/20 Rx lamoTRIgine [LaMICtal] 50 mg PO BID #30 tab 01/21/20 01/21/20 Rx lamoTRIgine [LaMICtal] 200 mg PO BID #60 tab 01/21/20 01/21/20 Rx Allergies Allergy/AdvReac Type Severity Reaction Status Date / Time No Known Allergies Allergy Verified 01/19/20 15:56 Physical Examination - Vital Signs Vital Signs: Vital Signs Temp Pulse Pulse Resp BP BP Pulse Ox 01/22/20 07:00 98.6 F 72 16 151/76 96 01/22/20 02:10 98.1 F 69 18 125/84 95 01/22/20 00:00 80 18 01/21/20 22:18 98.2 F 77 18 134/77 94 L 01/21/20 21:39 83 18 129/69 98 01/21/20 19:50 98 F 94 22 143/73 97 Intake and Output 01/22/20 01/22/20 01/22/20 06:59 14:59 22:59 Output Total 900 Balance -900 Output: Urine 900 Other: Voiding Method Toilet Urinal # Voids 1 3 On examination patient is a late middle aged male, in no distress. Patient is alert and awake. Speech and language functions are normal. Patient states it is January 19 and the year is 2019[address] He thinks [facility] is the president. He knows that he is in [facility] in [facility]. On cranial nerve examination pupils are round and reactive to light, visual villarreal are full, face is symmetric and tongue protrude in the midline. Muscle strength is normal. No ataxia. Tone and bulk of muscles normal. Sensations equal. Results - Laboratory Findings CBC and BMP: 01/22/20 07:02 01/22/20 07:02 Abnormal Lab Findings: Abnormal Labs 01/21/20 01/21/20 01/21/20 20:02 20:11 20:11 WBC 13.3 H RBC 3.63 L Hgb 11.7 L Hct 34.6 L Neutrophils # 10.2 H Sodium 125 L Chloride 92 L Carbon Dioxide 14 L Glucose POC Glucose (mg/dL) 101 H Phosphorus 4.8 H AST 84 H ALT Urine Protein Urine Ketones Urine Blood Amorphous Sediment Urine Bacteria Hyaline Casts Urine Mucus 01/21/20 01/22/20 01/22/20 20:26 07:02 07:02 WBC RBC 4.18 L Hgb Hct Neutrophils # Sodium Chloride 111 H Carbon Dioxide 19 L Glucose 61 L POC Glucose (mg/dL) Phosphorus AST 236 H ALT 55 H Urine Protein Trace H Urine Ketones 1+ H Urine Blood Moderate H Amorphous Sediment Rare H Urine Bacteria Rare H Hyaline Casts 7 H Urine Mucus Rare H Assessment and Plan Assessment: * 64-year-old male with long-standing history of seizure disorder, came with breakthrough seizure. Patient on this admission did have hyponatremia with sodium 125, which could be contributing. Patient's Lamictal level also has arrived at 2.1 (2-15), drawn on last admission, 01/19/2020. His Keppra level was therapeutic 20.5 (3-60) * Long-standing history of seizure disorder. Plan: * Optimize dose of Lamictal to 300 mg twice a day. * Continue same dose of Keppra 1500 mg twice a day. * Patient's sodium level is now normal 139 * Patient's insurance previously did not cover Vimpat. * Your management for prevention of hyponatremia * Neurologically clear otherwise with the above recommendations.
[2020-01-22] MEDS ORDERED: MONTELUKAST 10 MG TAB PO SCH (21:00)
[2020-01-22] MEDS ORDERED: QUEtiapine 50 MG TAB PO SCH (21:00)
[2020-01-22] MEDS ORDERED: FAMOTIDINE 20 MG TAB PO SCH (21:00)
[2020-01-23] MEDS: LEVOTHYROXINE 75 MCG TAB PO SCH (06:14)
[2020-01-23 07:03] LABS: Lamotrigine (Lamictal) 2.2 ug/mL (2.0-15.0)
[2020-01-23 07:31] LABS: Albumin 3.2 g/dL (3.5-5.0); Bilirubin,Unconjugated 0.6 mg/dL (0.0-1.1); Total Bilirubin 0.4 mg/dL (0.2-1.3); Total Protein 5.5 g/dL (6.3-8.2)
[2020-01-23] MEDS: LIDOCAINE 5% PATCH TOPICAL SCH (07:41)
[2020-01-23 07:49] VITALS: BP 147/82; PULSE 61; RESP 17; TEMP 97.8
[2020-01-23] MEDS: METOPROLOL TARTRATE 25 MG TAB PO SCH (07:51)
[2020-01-23] MEDS: THIAMINE 100 MG TAB PO SCH (07:51)
[2020-01-23] MEDS: NICOTINE 14MG/24HR PATCH TRANSDERM SCH (07:51)
[2020-01-23] MEDS: VENLAFAXINE HCL ER 75 MG CAP PO SCH (07:51)
[2020-01-23] MEDS: lamoTRIgine 100 MG TAB PO SCH (07:52)
[2020-01-23] MEDS: ENOXAPARIN 40 MG/0.4 ML SYRINGE SQ SCH (07:52)
--- NOTE | 2020-01-23 12:34 | P.DS ---
Providers Date of admission: 01/21/20 21:18 Attending physician: Derrell Sierra Consults: 01/21/20 21:23 Consult Physician Routine Consulting Provider: Bere Rueda Consult Reason/Comments: sz Do you want consulting provider notified?: Yes Primary care physician: Lucia Kc [facility] Course: Diagnoses: History of seizure with a breakthrough seizure on the presentation Hypertension Hypothyroidism COPD, not acute exacerbation Mammary impairment and thecal incapacity as per documentation Small hiatal hernia Schizophrenia Nicotine dependence History of alcohol abuse Hospital course: This is a pleasant 64 years old male with multiple medical problems as above, who presents with seizure, patient was just discharged when day earlier for seizure on symptoms of Keppra 1500 mg twice daily and Lamictal dose increased from 225 up to 250 mg twice daily for low normal level. However after he went home he developed another seizure with left sided chest trauma and left wrist trauma so he came to emergency room. Patient has been evaluated by neurologist and his Lamictal level was increased from 250 up to 300 mg twice daily.(As per discussion with his sister/family last time he has the 200 mg twice a day pills at home, so we going to send only and others excess prescription for Lamictal 100 mg twice daily so the total B3 100 mg twice daily). Pain is controlled, x-ray of the rib and the rest were negative. Patient is appropriate on the day of discharge with no chest pain or dyspnea, no confusion, no headache, no weakness or numbness, no hallucination or delusions, no abdominal pain or vomiting and is tolerating diet well with no fever. As stated patient was cleared for discharge by neurology Problems and management plan were discussed with the patient and he verbalized understanding and acceptance Patient was found stable and can be discharged home however he needs follow-up as an outpatient. Patient was instructed to follow up with PCP within one week and patient agrees. Patient already has an appointment with his neurologist Dr. Castro on 02/02 and family and patient agreed Gen: patient is a AAOx3, no distress CVS: S1-S2, RRR, no murmur Lungs: B/L CTA, no wheezing Abdomen: soft, no distention, no tenderness, positive bowel sounds Extremity: no leg edema or induration Time spent more than 35 minutes Patient Condition at Discharge: Fair Plan - Discharge Summary Discharge Rx Participant: Yes New Discharge Prescriptions: New lamoTRIgine [LaMICtal] 200 mg PO BID #30 tab Lidocaine 5% Patch [Lidoderm 5% Patch] 1 patch TOPICAL DAILY #15 patch Continue Metoprolol Tartrate [Lopressor] 25 mg PO BID Montelukast [Singulair] 10 mg PO HS QUEtiapine [SEROquel] 50 mg PO HS Levothyroxine Sodium [Synthroid] 75 mcg PO DAILY Famotidine 20 mg PO HS levETIRAcetam [Keppra] 1,500 mg PO BID #60 tab Simethicone [Gas-X] 125 mg PO ACHS PRN PRN Reason: gas & bloating Folic Acid 1 mg PO DAILY@1200 #15 tab Nicotine 14Mg/24Hr Patch [Habitrol] 1 patch TRANSDERM DAILY #7 patch lamoTRIgine [LaMICtal] 50 mg PO BID #30 tab Thiamine [Vitamin B-1] 100 mg PO BID-W/MEALS #30 tab lamoTRIgine [LaMICtal] 200 mg PO BID #60 tab Venlafaxine HCl [Effexor XR] 225 mg PO DAILY #30 cap Multivitamins, Thera [Multivitamin (formulary)] 1 tab PO DAILY@1200 Discharge Medication List Metoprolol Tartrate [Lopressor] 25 mg PO BID 08/08/17 [History] Montelukast [Singulair] 10 mg PO HS 12/30/17 [History] QUEtiapine [SEROquel] 50 mg PO HS 01/15/18 [History] Levothyroxine Sodium [Synthroid] 75 mcg PO DAILY 02/20/18 [History] Famotidine 20 mg PO HS 11/25/19 [History] levETIRAcetam [Keppra] 1,500 mg PO BID #60 tab 11/27/19 [Rx] Simethicone [Gas-X] 125 mg PO ACHS PRN 01/19/20 [History] Folic Acid 1 mg PO DAILY@1200 #15 tab 01/21/20 [Rx] Multivitamins, Thera [Multivitamin (formulary)] 1 tab PO DAILY@1200 01/21/20 [History] Nicotine 14Mg/24Hr Patch [Habitrol] 1 patch TRANSDERM DAILY #7 patch 01/21/20 [Rx] Thiamine [Vitamin B-1] 100 mg PO BID-W/MEALS #30 tab 01/21/20 [Rx] Venlafaxine HCl [Effexor XR] 225 mg PO DAILY #30 cap 01/21/20 [Rx] lamoTRIgine [LaMICtal] 50 mg PO BID #30 tab 01/21/20 [Rx] lamoTRIgine [LaMICtal] 200 mg PO BID #60 tab 01/21/20 [Rx] Lidocaine 5% Patch [Lidoderm 5% Patch] 1 patch TOPICAL DAILY #15 patch 01/23/20 [Rx] lamoTRIgine [LaMICtal] 200 mg PO BID #30 tab 01/23/20 [Rx] Follow up Appointment(s)/Referral(s): Lucia Kc MD [Primary Care Provider] - 1-2 days Connie Castro MD [Medical Doctor] - 02/03/20 9:30 am
--- NOTE | 2020-01-23 13:17 | P.PN ---
Subjective Progress Note Date: 01/23/20 No further seizures. States doing "great". Denies any side effects of medication. Objective - Vital Signs Vital signs: Vital Signs Temp 97.8 F 01/23/20 07:00 Pulse 61 01/23/20 07:00 Resp 17 01/23/20 07:00 BP 147/82 01/23/20 07:00 Pulse Ox 97 01/23/20 07:00 Intake & Output 01/22/20 01/23/20 01/23/20 18:59 06:59 18:59 Output Total 1500 Balance -1500 Output: Urine 1500 Other: Voiding Method Toilet Toilet Urinal Urinal # Voids 3 1 - Exam Patient's mental status, speech and language functions are all stable. Strength is normal. No ataxia, no nystagmus. - Labs CBC & Chem 7: 01/22/20 07:02 01/22/20 07:02 Labs: Abnormal Lab Results - Last 24 Hours (Table) 01/21/20 01/23/20 Range/Units 20:11 06:50 AST 193 H (17-59) U/L Total Protein 5.5 L (6.3-8.2) g/dL Albumin 3.2 L (3.5-5.0) g/dL Levetiracetam 1.0 L (3.0-60.0) ug/mL Assessment and Plan Assessment: * 64-year-old male with long-standing history of seizure disorder, came with breakthrough seizure. Patient on this admission did have hyponatremia with sodium 125, which could be contributing. Patient's Lamictal level also has arrived at 2.1 (2-15), drawn on last admission, 01/19/2020. His Keppra level was therapeutic 20.5 (3-60) * Long-standing history of seizure disorder. Plan: * Optimize dose of Lamictal to 300 mg twice a day. * Continue same dose of Keppra 1500 mg twice a day. * Patient's sodium level is now normal 139 * Patient's insurance previously did not cover Vimpat. * Your management for prevention of hyponatremia * Neurologically clear otherwise with the above recommendations. * Clear for discharge.
[2020-01-23] MEDS: FOLIC ACID 1 MG TAB PO SCH (14:45)
[2020-01-23] MEDS: MULTIVITAMINS, THERA 1 EACH TAB PO SCH (14:45)
== END 2020-01-23 15:08 | disposition home health service (06) | DRG 101 ==
LOC: EC 19:40 → 4SSUR 21:18
PROVIDERS: ADMIT Hospitalist; ATTEND Hospitalist
DX: G40.419 Other generalized epilepsy and epileptic syndromes, intractable, without status epilepticus (principal); E87.1 Hypo-osmolality and hyponatremia; E87.2 Acidosis; E03.9 Hypothyroidism, unspecified; F17.210 Nicotine dependence, cigarettes, uncomplicated; F20.9 Schizophrenia, unspecified; F41.9 Anxiety disorder, unspecified; I11.0 Hypertensive heart disease with heart failure; I45.10 Unspecified right bundle-branch block; I50.9 Heart failure, unspecified; J44.9 Chronic obstructive pulmonary disease, unspecified; K44.9 Diaphragmatic hernia without obstruction or gangrene; M19.90 Unspecified osteoarthritis, unspecified site; R32 Unspecified urinary incontinence; Z79.890 Hormone replacement therapy; Z79.899 Other long term (current) drug therapy; Z82.49 Family history of ischemic heart disease and other diseases of the circulatory system; Z83.6 Family history of other diseases of the respiratory system; Z82.3 Family history of stroke; Z96.653 Presence of artificial knee joint, bilateral; F10.11 Alcohol abuse, in remission
CPT/HCPCS: 36415; 70450; 80053; 80076; 80156; 80164; 80175; 80177; 80178; 80185; 80306; 80320; 80329; 81001; 83520; 83735; 84100; 85025; 93005; 96360; 96365; 96366; 99291

== ENCOUNTER 2020-03-14 13:22 | Inpatient (IN) | payer MEDICARE ==
--- NOTE | 2020-03-14 13:34 | ED ---
General Adult HPI - General Stated complaint: Seizure Time Seen by Provider: 03/14/20 13:22 Source: EMS, RN notes reviewed, old records reviewed - History of Present Illness Initial comments: This is a 64-year-old male who presents emergency Department unresponsive secondary to having a seizure and didn't 10 of Versed. According to EMS family states he has a long-standing history of seizures that are difficult to control. EMS arrived the patient was still seizing they gave him 5 of Versed IM did not take any effect they gave him 5 more. Shortly thereafter the seizure stopped and patient was unresponsive and remains unresponsive this time. According to family he was not sick that they knew of. Patient's had no trauma that they've known. Patient cannot give any further history and family or caregiver is not with the patient. - Related Data Home Medications Medication Instructions Recorded Confirmed Metoprolol Tartrate [Lopressor] 25 mg PO BID 08/08/17 03/14/20 Montelukast [Singulair] 10 mg PO HS 12/30/17 03/14/20 Levothyroxine Sodium [Synthroid] 75 mcg PO DAILY 02/20/18 03/14/20 Famotidine 20 mg PO HS 11/25/19 03/14/20 Simethicone [Gas-X] 125 mg PO ACHS PRN 01/19/20 03/14/20 busPIRone HCL 15 mg PO TID 03/14/20 03/14/20 traZODone HCL 100 mg PO HS 03/14/20 03/14/20 Previous Rx's Medication Instructions Recorded levETIRAcetam [Keppra] 1,500 mg PO BID #60 tab 11/27/19 Venlafaxine HCl [Effexor XR] 225 mg PO DAILY #30 cap 01/21/20 lamoTRIgine [LaMICtal] 200 mg PO BID #60 tab 01/21/20 lamoTRIgine [LaMICtal] 100 mg PO BID #60 tab 01/23/20 Allergies Allergy/AdvReac Type Severity Reaction Status Date / Time No Known Allergies Allergy Verified 03/14/20 13:34 Review of Systems ROS Statement: Those systems with pertinent positive or pertinent negative responses have been documented in the HPI. ROS Other: All systems not noted in ROS Statement are negative. Past Medical History Past Medical History: Chest Pain / Angina, Heart Failure, COPD, GERD/Reflux, Hypertension, Seizure Disorder, Thyroid Disorder Additional Past Medical History / Comment(s): falls,bronchitis,Memory impairment, legally incapacitated, hypothyroid, small hiatal hernia, div erticulosis History of Any Multi-Drug Resistant Organisms: None Reported Past Surgical History: Hernia Repair, Joint Replacement, Orthopedic Surgery Additional Past Surgical History / Comment(s): 08/2017 EGGD/colonoscopy, prior colonoscopy, umbilical hernia repair, L total knee, R partial knee replacement, R lower leg fracture with ORIF (hardware in place), ERCP, bilateral knee arthroscopies. Past Anesthesia/Blood Transfusion Reactions: No Reported Reaction Past Psychological History: Anxiety, Bipolar, Depression, Schizophrenia Additional Psychological History / Comment(s): Pt resides with his daughter, Pat who is his balance truing inspector, legal gaurdian. Pt ambulates without device. He does not drive, daughter takes him to appts. Smoking Status: Current every day smoker Past Alcohol Use History: Occasional Additional Past Alcohol Use History / Comment(s): Pt started smoking in 1971 and is less than a ppd smoker on average. Past Drug Use History: Marijuana Additional Drug Use History / Comment(s): Pt occasionally smokes marijuana. - Past Family History Father Family Medical History: Cancer, Coronary Artery Disease (CAD), Pneumonia Additional Family Medical History / Comment(s): Father had a pacemaker. He of pneumonia. Mother Family Medical History: Coronary Artery Disease (CAD), CVA/TIA General Exam - General Exam Comments Initial Comments: GENERAL: Patient is well-developed and well-nourished. Patient is nontoxic and well- hydrated and patient is completely unresponsive at this time. ENT: Neck is soft and supple. No significant lymphadenopathy is noted. Oropharynx is clear. Moist mucous membranes. Neck has full range of motion without eliciting any pain. EYES: The sclera were anicteric and conjunctiva were pink and moist. Eyelids were unremarkable. PULMONARY: Unlabored respirations. Good breath sounds bilaterally. No audible rales rhonchi or wheezing was noted. CARDIOVASCULAR: There is a regular rate and rhythm without any murmurs gallops or rubs. ABDOMEN: Soft and nontender with normal bowel sounds. No palpable organomegaly was noted. There is no palpable pulsatile mass. SKIN: Skin is clear with no lesions or rashes and otherwise unremarkable. NEUROLOGIC: Unable to assess MUSCULOSKELETAL: Normal extremities with adequate strength and full range of motion. No lower extremity swelling or edema. No calf tenderness. LYMPHATICS: No significant lymphadenopathy is noted PSYCHIATRIC: Unable to assess Course Vital Signs 03/14/20 03/14/20 13:30 14:00 Temperature 98.4 F Pulse Rate 99 78 Respiratory 20 20 Rate Blood Pressure 135/77 105/65 O2 Sat by Pulse 95 99 Oximetry Medical Decision Making - Medical Decision Making EKG shows normal sinus rhythm at 97 bpm WV interval is 204 QRS is 162 QT interval is 416 QTC is 528. Patient's EKG shows a right bundle branch block this right bundle sandee block was there in previous EKGs. I did not rescan the patient because he had 3 CTs of the brain this year already. I went back into reevaluate the patient he was arousable to voice and looked around the room but was not conversing at this point but was much more alert and responsive any was earlier. I spoke with Dr. Mulligan he agreed to admit the patient admitted the patient. - Lab Data Result diagrams: 03/14/20 13:25 03/14/20 13:25 Lab Results 03/14/20 03/14/20 03/14/20 Range/Units 13:25 13:25 13:35 WBC 11.8 H (3.8-10.6) k/uL RBC 4.36 (4.30-5.90) m/uL Hgb 14.3 (13.0-17.5) gm/dL Hct 43.1 (39.0-53.0) % MCV 98.8 (80.0-100.0) fL MCH 32.9 (25.0-35.0) pg MCHC 33.3 (31.0-37.0) g/dL RDW 13.0 (11.5-15.5) % Plt Count 270 (150-450) k/uL Neutrophils % 53 % Lymphocytes % 36 % Monocytes % 5 % Eosinophils % 2 % Basophils % 1 % Neutrophils # 6.3 (1.3-7.7) k/uL Lymphocytes # 4.3 (1.0-4.8) k/uL Monocytes # 0.6 (0-1.0) k/uL Eosinophils # 0.2 (0-0.7) k/uL Basophils # 0.1 (0-0.2) k/uL Sodium 140 (137-145) mmol/L Potassium 4.2 (3.5-5.1) mmol/L Chloride 104 (98-107) mmol/L Carbon Dioxide 10 L (22-30) mmol/L Anion Gap 26 mmol/L BUN 21 H (9-20) mg/dL Creatinine 1.12 (0.66-1.25) mg/dL Est GFR (CKD-EPI)AfAm 81 (>60 ml/min/1.73 sqM) Est GFR (CKD-EPI)NonAf 70 (>60 ml/min/1.73 sqM) Glucose 126 H (74-99) mg/dL Calcium 8.8 (8.4-10.2) mg/dL Magnesium 2.1 (1.6-2.3) mg/dL Total Bilirubin 0.2 (0.2-1.3) mg/dL AST 30 (17-59) U/L ALT 23 (4-49) U/L Alkaline Phosphatase 145 H (38-126) U/L Total Protein 7.2 (6.3-8.2) g/dL Albumin 4.5 (3.5-5.0) g/dL Urine Opiates Screen Not Detected (NotDetected) Ur Oxycodone Screen Not Detected (NotDetected) Urine Methadone Screen Not Detected (NotDetected) Ur Propoxyphene Screen Not Detected (NotDetected) Ur Barbiturates Screen Not Detected (NotDetected) U Tricyclic Antidepress Not Detected (NotDetected) Ur Phencyclidine Scrn Not Detected (NotDetected) Ur Amphetamines Screen Not Detected (NotDetected) U Methamphetamines Scrn Not Detected (NotDetected) U Benzodiazepines Scrn Not Detected (NotDetected) Urine Cocaine Screen Not Detected (NotDetected) U Marijuana (THC) Screen Not Detected (NotDetected) Disposition Clinical Impression: Intractable seizure disorder Disposition: ADMITTED IP TO THIS [facility] Referrals: Lucia Kc MD [Primary Care Provider] - 1-2 days Time of Disposition: 14:48
[2020-03-14 14:05] LABS: Amphetamine Screen,Urine Not Detected (NotDetected); Barbiturate Screen,Urine Not Detected (NotDetected); Benzodiazepines Screen,Urine Not Detected (NotDetected); Cocaine Screen,Urine Not Detected (NotDetected); Methadone Screen, Urine Not Detected (NotDetected); Opiate Screen,Urine Not Detected (NotDetected); Oxycodone Screen, Urine Not Detected (NotDetected); Phencyclidine Screen,Urine Not Detected (NotDetected); Tricyclic Antidepressant,Urine Not Detected (NotDetected); Urn Cannabinoid Scrn Not Detected (NotDetected)
[2020-03-14 14:06] LABS: Albumin 4.5 g/dL (3.5-5.0); Calcium 8.8 mg/dL (8.4-10.2); Magnesium 2.1 mg/dL (1.6-2.3); Potassium 4.2 mmol/L (3.5-5.1); Total Bilirubin 0.2 mg/dL (0.2-1.3); Total Protein 7.2 g/dL (6.3-8.2)
[2020-03-14 14:12] LABS: Basophils # (A) 0.1 k/uL (0-0.2); Basophils % (A) 1 %; Eosinophils # (A) 0.2 k/uL (0-0.7); Eosinophils % (A) 2 %; HCT 43.1 % (39.0-53.0); HGB 14.3 gm/dL (13.0-17.5); Lymphocytes # (A) 4.3 k/uL (1.0-4.8); Lymphocytes % (A) 36 %; MCH 32.9 pg (25.0-35.0); MCHC 33.3 g/dL (31.0-37.0); MCV 98.8 fL (80.0-100.0); Mean Platelet Volume 7.1; Monocytes # (A) 0.6 k/uL (0-1.0); Monocytes % (A) 5 %; Neutrophils # (A) 6.3 k/uL (1.3-7.7); Neutrophils % (A) 53 %; Platelet Count 270 k/uL (150-450); RBC 4.36 m/uL (4.30-5.90); WBC 11.8 k/uL (3.8-10.6)
[2020-03-14] MEDS ORDERED: SODIUM CHLORIDE 0.9% 1,000 ML IV ONE (14:49)
[2020-03-14] MEDS ORDERED: SIMETHICONE 80 MG CHEWABLE PO PRN ×2 (16:05→16:07)
[2020-03-14] MEDS ORDERED: HYDROcodone/APAP 5-325MG 1 EACH TAB PO STA (17:03)
[2020-03-14] MEDS ORDERED: HYDROmorphone 0.5 MG/0.5 ML SYRINGE IVP STA (20:09)
[2020-03-14] MEDS: FAMOTIDINE 20 MG TAB PO SCH (20:21)
[2020-03-14] MEDS: MONTELUKAST 10 MG TAB PO SCH (20:21)
[2020-03-14] MEDS: lamoTRIgine 100 MG TAB PO SCH ×2 (20:21)
[2020-03-14] MEDS: HEPARIN SODIUM,PORCINE 5,000 UNIT/ML 1 ML VIAL SQ SCH (23:14)
[2020-03-15] MEDS: LEVOTHYROXINE 75 MCG TAB PO SCH (06:31)
[2020-03-15 06:54] LABS: Basophils % (A) 1 %; Eosinophils # (A) 0.1 k/uL (0-0.7); Eosinophils % (A) 2 %; HCT 37.5 % (39.0-53.0); HGB 12.5 gm/dL (13.0-17.5); Lymphocytes # (A) 1.5 k/uL (1.0-4.8); Lymphocytes % (A) 25 %; MCH 32.1 pg (25.0-35.0); MCHC 33.3 g/dL (31.0-37.0); MCV 96.3 fL (80.0-100.0); Mean Platelet Volume 7.1; Monocytes # (A) 0.4 k/uL (0-1.0); Monocytes % (A) 7 %; Neutrophils # (A) 3.8 k/uL (1.3-7.7); Neutrophils % (A) 64 %; Platelet Count 203 k/uL (150-450); WBC 5.9 k/uL (3.8-10.6)
[2020-03-15 07:06] LABS: African American GFR (CKD) >90 (>60 ml/min/1.73 sqM); Anion Gap 6 mmol/L; Blood Urea Nitrogen 18 mg/dL (9-20); Calcium 8.2 mg/dL (8.4-10.2); Carbon Dioxide 22 mmol/L (22-30); Chloride 110 mmol/L (98-107); Glucose 97 mg/dL (74-99); Non-African American GFR(CKD) 89 (>60 ml/min/1.73 sqM); Potassium 4.4 mmol/L (3.5-5.1); Sodium 138 mmol/L (137-145)
[2020-03-15] MEDS: lamoTRIgine 100 MG TAB PO SCH ×4 (08:10→21:05)
[2020-03-15] MEDS: HEPARIN SODIUM,PORCINE 5,000 UNIT/ML 1 ML VIAL SQ SCH ×2 (08:10→16:07)
--- NOTE | 2020-03-15 14:20 | P.HPIM ---
History of Present Illness H&P Date: 03/14/20 Chief Complaint: Seizures Patient is a 64-year-old male with a known history of seizure disorder, hypothyroidism, memory impairment and history of falls, legally incapacitated, anxiety/bipolar/depression/schizophrenia, currently with a smoker and history of marijuana use came to ER due to acute seizure episode. Patient was unresponsive when he presented to ER by EMS. According to EMS family states he has a long- standing history of seizures that are difficult to control. Patient was given 5 mg of Versed IM by EMS which could not control his seizures and he was given another 5 mg IM. It shortly thereafter seizures. Patient was brought to ER for evaluation. According to the family no recent illnesses or fever or chills at home. No cough or sputum production. No recent trauma to the head. No recent falls. Patient has been afebrile while in the hospital. Patient is currently awake but still drowsy and lethargic. Most of the history was taken from the EMS and medical records and ER notes. EKG showed normal sinus rhythm with heart rate 97. Right bundle branch block which was draining he is EKGs. WBC 11.8, UDS negative and covid 19 negative Patient does take Lamictal and Keppra at home. Keppra level was ordered Review of Systems Review of systems could not be apparent from the patient at this time Past Medical History Past Medical History: Chest Pain / Angina, Heart Failure, COPD, GERD/Reflux, Hypertension, Seizure Disorder, Thyroid Disorder Additional Past Medical History / Comment(s): falls,bronchitis,Memory impairment, legally incapacitated, hypothyroid, small hiatal hernia, diverticulosis History of Any Multi-Drug Resistant Organisms: None Reported Past Surgical History: Hernia Repair, Joint Replacement, Orthopedic Surgery Additional Past Surgical History / Comment(s): 08/2017 EGGD/colonoscopy, prior colonoscopy, umbilical hernia repair, L total knee, R partial knee replacement, R lower leg fracture with ORIF (hardware in place), ERCP, bilateral knee arthroscopies. Past Anesthesia/Blood Transfusion Reactions: No Reported Reaction Past Psychological History: Anxiety, Bipolar, Depression, Schizophrenia Additional Psychological History / Comment(s): Pt resides with his daughter, Pat who is his machine overhauler, legal gaurdian. Pt ambulates without device. He does not drive, daughter takes him to [employer]. Smoking Status: Current every day smoker Past Alcohol Use History: Occasional Additional Past Alcohol Use History / Comment(s): Pt started smoking in 1971 and is less than a ppd smoker on average. Past Drug Use History: Marijuana Additional Drug Use History / Comment(s): Pt occasionally smokes marijuana. - Past Family History Father Family Medical History: Cancer, Coronary Artery Disease (CAD), Pneumonia Additional Family Medical History / Comment(s): Father had a pacemaker. He of pneumonia. Mother Family Medical History: Coronary Artery Disease (CAD), CVA/TIA Medications and Allergies Home Medications Medication Instructions Recorded Confirmed Type Metoprolol Tartrate [Lopressor] 25 mg PO BID 08/08/17 03/14/20 History Montelukast [Singulair] 10 mg PO HS 12/30/17 03/14/20 History Levothyroxine Sodium [Synthroid] 75 mcg PO DAILY 02/20/18 03/14/20 History Famotidine 20 mg PO HS 11/25/19 03/14/20 History levETIRAcetam [Keppra] 1,500 mg PO BID #60 tab 11/27/19 03/14/20 Rx Simethicone [Gas-X] 125 mg PO ACHS PRN 01/19/20 03/14/20 History Venlafaxine HCl [Effexor XR] 225 mg PO DAILY #30 cap 01/21/20 03/14/20 Rx lamoTRIgine [LaMICtal] 200 mg PO BID #60 tab 01/21/20 03/14/20 Rx lamoTRIgine [LaMICtal] 100 mg PO BID #60 tab 01/23/20 03/14/20 Rx busPIRone HCL 15 mg PO TID 03/14/20 03/14/20 History traZODone HCL 100 mg PO HS 03/14/20 03/14/20 History Allergies Allergy/AdvReac Type Severity Reaction Status Date / Time No Known Allergies Allergy Verified 03/14/20 13:34 Physical Exam Vitals: Vital Signs Temp Pulse Resp BP Pulse Ox 03/14/20 15:49 98.3 F 65 18 108/65 99 03/14/20 15:00 73 20 118/65 98 03/14/20 14:00 78 20 105/65 99 03/14/20 13:30 98.4 F 99 20 135/77 95 Intake and Output 03/14/20 03/14/20 03/14/20 06:59 14:59 22:59 Other: Weight 83.915 kg PHYSICAL EXAMINATION: Patient is lying in the bed comfortably, no acute distress, awake alert and oriented 1.. Lethargic and confused. HEENT: Normocephalic. Neck is supple. Pupils reactive. Nostrils clear. Oral cavity is moist. Ears reveal no drainage. Neck reveals no JVD, carotid bruits, or thyromegaly. CHEST EXAMINATION: Trachea is central. Symmetrical expansion. Bibasilar diminished air entry. Lung villarreal clear to auscultation and percussion. CARDIAC: Normal S1, S2 with no gallops. No murmurs ABDOMEN: Soft. Bowel sounds normal. No organomegaly. No abdominal bruits. Extremities: reveal no edema. No clubbing or cyanosis Neurologically awake, alert, oriented 1 with well-coordinated movements. No focal deficits noted Skin: No rash or skin lesions. Psychiatric: Coperative. Could not be assessed completely. Musculoskeletal: No joint swelling or deformity. Normal range of motion. Results CBC & Chem 7: 03/15/20 06:14 03/15/20 06:14 Labs: Abnormal Lab Results - Last 24 Hours (Table) 03/14/20 03/14/20 Range/Units 13:25 13:25 WBC 11.8 H (3.8-10.6) k/uL Carbon Dioxide 10 L (22-30) mmol/L BUN 21 H (9-20) mg/dL Glucose 126 H (74-99) mg/dL Alkaline Phosphatase 145 H (38-126) U/L Thrombosis Risk Factor Assmnt - DVT/VTE Prophylaxis DVT/VTE Prophylaxis: Pharmacologic Prophylaxis ordered Assessment and Plan Assessment: Intractable seizures. Possible breakthrough seizures History of seizure disorder Bipolar/depression/schizophrenia MrThomas marijuana use Ongoing nicotine addiction Hypertension controlled GERD COPD not in exacerbation Hypothyroidism History of falls and memory impairment and legally incapacitated History of diverticulosis Small hiatal hernia X Osteoarthritis DVT prophylaxis with heparin subcu Plan: Patient was given Versed total of 10 mg IM. Currently patient is lethargic and confused. Continue with seizure precautions, fall precautions. We will start back on Keppra and Lamictal. Keppra level was ordered. Continue the home medications and follow closely. Further recommendations based on the clinical course. Repeat CBC tomorrow. Neurology was consulted. Time with Patient: Greater than 30
[2020-03-15] MEDS ORDERED: traZODone HCL 100 MG TAB PO SCH (21:00)
[2020-03-15] MEDS: FAMOTIDINE 20 MG TAB PO SCH (21:05)
[2020-03-15] MEDS: MONTELUKAST 10 MG TAB PO SCH (21:05)
--- NOTE | 2020-03-15 23:16 | P.PN ---
Subjective Progress Note Date: 03/15/20 Principal diagnosis: Intractable seizures. Patient is a 64-year-old male with a known history of seizure disorder, hypothyroidism, memory impairment and history of falls, legally incapacitated, anxiety/bipolar/depression/schizophrenia, currently with a smoker and history of marijuana use came to ER due to acute seizure episode. Patient was unresponsive when he presented to ER by EMS. According to EMS family states he has a long- standing history of seizures that are difficult to control. Patient was given 5 mg of Versed IM by EMS which could not control his seizures and he was given another 5 mg IM. It shortly thereafter seizures. Patient was brought to ER for evaluation. According to the family no recent illnesses or fever or chills at home. No cough or sputum production. No recent trauma to the head. No recent falls. Patient has been afebrile while in the hospital. Patient is currently awake but still drowsy and lethargic. Most of the history was taken from the EMS and medical records and ER notes. EKG showed normal sinus rhythm with heart rate 97. Right bundle branch block which was draining he is EKGs. WBC 11.8, UDS negative and covid 19 negative Patient does take Lamictal and Keppra at home. Keppra level was ordered. 03/15/2020 Patient is currently sitting in the chair comfortably. Awake alert and oriented 3. No further episodes of seizures. Keppra level is pending. Leukocytosis resolved. Patient is tolerating oral diet. Neurology was consulted. Patient is being continued on Keppra and Lamictal. No nausea vomiting or abdominal pain or diarrhea. Current medications reviewed. Objective - Vital Signs Vital signs: Vital Signs Temp 98.7 F 03/15/20 11:45 Pulse 60 03/15/20 11:45 Resp 18 03/15/20 11:45 BP 141/82 03/15/20 11:45 Pulse Ox 100 03/15/20 11:45 Intake & Output 03/14/20 03/15/20 03/15/20 18:59 06:59 18:59 Intake Total 360 Output Total 810 900 Balance -810 -540 Weight 83.915 kg 83.7 kg Intake: Oral 360 Output: Urine 810 900 Other: # Voids 1 - Exam PHYSICAL EXAMINATION: Patient is lying in the bed comfortably, no acute distress, awake alert and oriented.. HEENT: Normocephalic. Neck is supple. Pupils reactive. Nostrils clear. Oral cavity is moist. Ears reveal no drainage. Neck reveals no JVD, carotid bruits, or thyromegaly. CHEST EXAMINATION: Trachea is central. Symmetrical expansion. Lung villarreal clear to auscultation and percussion. CARDIAC: Normal S1, S2 with no gallops. No murmurs ABDOMEN: Soft. Bowel sounds normal. No organomegaly. No abdominal bruits. Extremities: reveal no edema. No clubbing or cyanosis Neurologically awake, alert, oriented x3 with well-coordinated movements. No focal deficits noted Skin: No rash or skin lesions. Psychiatric: Coperative. Nonsuicidal Musculoskeletal: No joint swelling or deformity. Normal range of motion. - Labs CBC & Chem 7: 03/15/20 06:14 03/15/20 06:14 Labs: Abnormal Lab Results - Last 24 Hours (Table) 03/15/20 03/15/20 Range/Units 06:14 06:14 RBC 3.90 L (4.30-5.90) m/uL Hgb 12.5 L (13.0-17.5) gm/dL Hct 37.5 L (39.0-53.0) % Chloride 110 H (98-107) mmol/L Calcium 8.2 L (8.4-10.2) mg/dL Assessment and Plan Assessment: Intractable seizures. Possible breakthrough seizures. Patient is oriented 3 now. No overnight episodes. History of seizure disorder Bipolar/depression/schizophrenia marijuana use Ongoing nicotine addiction Hypertension controlled GERD COPD not in exacerbation Hypothyroidism History of falls and memory impairment and legally incapacitated History of diverticulosis Small hiatal hernia X Osteoarthritis DVT prophylaxis with heparin subcu Plan: Patient was given Versed total of 10 mg IM. Currently patient is lethargic and confused. Continue with seizure precautions, fall precautions. Started back on Keppra and Lamictal. Keppra level was ordered. Pending at this time. Continue the home medications and follow closely. Further recommendations based on the clinical course. Repeat CBC tomorrow. Neurology was consulted. Time with Patient: Greater than 30
[2020-03-16] MEDS: HEPARIN SODIUM,PORCINE 5,000 UNIT/ML 1 ML VIAL SQ SCH ×2 (02:44→08:28)
[2020-03-16] MEDS: LEVOTHYROXINE 75 MCG TAB PO SCH (05:43)
[2020-03-16 06:41] LABS: HCT 37.8 % (39.0-53.0); HGB 12.8 gm/dL (13.0-17.5); MCH 32.4 pg (25.0-35.0); MCHC 33.9 g/dL (31.0-37.0); MCV 95.5 fL (80.0-100.0); Platelet Count 208 k/uL (150-450); RBC 3.96 m/uL (4.30-5.90); RDW 13.1 % (11.5-15.5); WBC 5.5 k/uL (3.8-10.6)
[2020-03-16 07:06] LABS: African American GFR (CKD) >90 (>60 ml/min/1.73 sqM); Anion Gap 4 mmol/L; Blood Urea Nitrogen 14 mg/dL (9-20); Calcium 8.6 mg/dL (8.4-10.2); Carbon Dioxide 28 mmol/L (22-30); Chloride 108 mmol/L (98-107); Glucose 97 mg/dL (74-99); Non-African American GFR(CKD) 80 (>60 ml/min/1.73 sqM); Potassium 4.3 mmol/L (3.5-5.1); Sodium 140 mmol/L (137-145)
[2020-03-16 08:27] VITALS: TEMP 97.9
[2020-03-16] MEDS: lamoTRIgine 100 MG TAB PO SCH ×2 (08:27)
--- NOTE | 2020-03-16 14:38 | P.CNNES ---
History of Present Illness Consult date: 03/16/20 Requesting physician: Solitario Mulligan Reason for Consult: Seizures History of Present Illness: Patient is a 64-year-old male, well known to me from previous multiple admissions to the hospital for seizures. Patient was last seen in the hospital on 01/21/2020. At that time he was discharged on Lamictal 300 mg twice a day, Keppra 1500 mg twice a day. His home medication list mentions same dosing of his seizure medications. Patient was brought to the hospital on 03/14/2020 for unresponsiveness secondary to having a seizure. When EMS arrived, patient was post ictal, and family had reported that he was seizing for 15 minutes prior. Patient then had a grand mal seizure witnessed by EMS, lasting for 2 minutes. Patient's blood pressure at the scene was 202/90, pulse rate 110 and respirations 16 saturation 90%. Blood pressure did improve to 164/88. He was given 5 mg of Versed which did not work for which he was given another 5 mg of Versed. Thereafter seizure stopped. Patient arrived to the hospital at 1:22 PM on 03/14/2020. EKG showed normal sinus rhythm with right bundle branch block. Patient's blood tests shows normal CBC, potassium 4.2, sodium 140 liver functions normal. Urine drug screen negative and Keppra level is therapeutic 23.9 (3-37), suggestive of compliance with medications. Gonsalez virus PCR negative. Patient previously had an EEG on 03/12/2019, which was abnormal due to mild -to-moderate background slowing. This is suggestive of generalized cerebral dysfunction, as can be seen in toxic metabolic encephalopathies or related to diffuse structural brain abnormality. No epileptiform activity was seen. Patient has history of seizure disorder for almost last 30 years. Patient gets petit mal seizures and grand mal seizures. His seizures were well controlled in 2008, when he was able to get his driving license back. He started having breakthrough seizures since 02/03/2017, when he had multiple grand mal seizures. At that time patient was intoxicated and had been doing cocaine. He had memory loss afterwards. Review of Systems Patient feels fine. Offers no new complaints. Denies headache, problem with the vision. Does have memory issues. All other review of systems unremarkable. Past Medical History Past Medical History: Chest Pain / Angina, Heart Failure, COPD, GERD/Reflux, Hypertension, Seizure Disorder, Thyroid Disorder Additional Past Medical History / Comment(s): falls,bronchitis,Memory impairment, legally incapacitated, hypothyroid, small hiatal hernia, diverticulosis History of Any Multi-Drug Resistant Organisms: None Reported Past Surgical History: Hernia Repair, Joint Replacement, Orthopedic Surgery Additional Past Surgical History / Comment(s): 08/2017 EGGD/colonoscopy, prior colonoscopy, umbilical hernia repair, L total knee, R partial knee replacement, R lower leg fracture with ORIF (hardware in place), ERCP, bilateral knee arthroscopies. Past Anesthesia/Blood Transfusion Reactions: No Reported Reaction Past Psychological History: Anxiety, Bipolar, Depression, Schizophrenia Additional Psychological History / Comment(s): Pt resides with his daughter, Pat who is his verifier operator, legal gaurdian. Pt ambulates without device. He does not drive, daughter takes him to appts. Smoking Status: Current every day smoker Past Alcohol Use History: Occasional Additional Past Alcohol Use History / Comment(s): Pt started smoking in 1971 and is less than a ppd smoker on average. Past Drug Use History: Marijuana Additional Drug Use History / Comment(s): Pt occasionally smokes marijuana. - Past Family History Father Family Medical History: Cancer, Coronary Artery Disease (CAD), Pneumonia Additional Family Medical History / Comment(s): Father had a pacemaker. He of pneumonia. Mother Family Medical History: Coronary Artery Disease (CAD), CVA/TIA Medications and Allergies Home Medications Medication Instructions Recorded Confirmed Type Metoprolol Tartrate [Lopressor] 25 mg PO BID 08/08/17 03/14/20 History Montelukast [Singulair] 10 mg PO HS 12/30/17 03/14/20 History Levothyroxine Sodium [Synthroid] 75 mcg PO DAILY 02/20/18 03/14/20 History Famotidine 20 mg PO HS 11/25/19 03/14/20 History levETIRAcetam [Keppra] 1,500 mg PO BID #60 tab 11/27/19 03/14/20 Rx Simethicone [Gas-X] 125 mg PO ACHS PRN 01/19/20 03/14/20 History Venlafaxine HCl [Effexor XR] 225 mg PO DAILY #30 cap 01/21/20 03/14/20 Rx lamoTRIgine [LaMICtal] 200 mg PO BID #60 tab 01/21/20 03/14/20 Rx lamoTRIgine [LaMICtal] 100 mg PO BID #60 tab 01/23/20 03/14/20 Rx busPIRone HCL 15 mg PO TID 03/14/20 03/14/20 History traZODone HCL 100 mg PO HS 03/14/20 03/14/20 History Allergies Allergy/AdvReac Type Severity Reaction Status Date / Time No Known Allergies Allergy Verified 03/14/20 13:34 Physical Examination - Vital Signs Vital Signs: Vital Signs Temp Pulse Resp BP Pulse Ox 03/16/20 08:00 97.9 F 65 16 159/71 98 03/16/20 04:00 97.7 F 67 16 133/69 98 03/16/20 00:00 65 03/15/20 20:00 98.3 F 71 16 141/76 96 03/15/20 16:00 98.9 F 62 16 167/85 98 03/15/20 11:45 98.7 F 60 16 141/82 100 Intake and Output 03/15/20 03/16/20 03/16/20 22:59 06:59 14:59 Intake Total 240 480 Output Total 450 420 Balance -210 -420 480 Intake: Oral 240 480 Output: Urine 450 420 Other: # Voids 1 1 Weight 76.5 kg On examination patient is a late middle aged male, in no acute distr ess. Patient is alert and awake, very pleasant. He is fairly well oriented, knows it is March and the year is 2019. He knows he is in [facility] in [facility]. He cannot tell name of the current president states it's Obama. On cranial examination pupils are round and reactive to light, visual villarreal are full. Face is symmetric and tongue protrudes midline. Muscle strength is normal. No ataxia. Sensory touch is equal. Tone and bulk of muscles normal. Gait deferred. No carotid bruit or murmur. Peripheral pulses present. Results - Laboratory Findings CBC and BMP: 03/16/20 05:35 03/16/20 05:35 Abnormal Lab Findings: Abnormal Labs 03/14/20 03/14/20 03/15/20 13:25 13:25 06:14 WBC 11.8 H RBC 3.90 L Hgb 12.5 L Hct 37.5 L Chloride Carbon Dioxide 10 L BUN 21 H Glucose 126 H Calcium Alkaline Phosphatase 145 H 03/15/20 03/16/20 03/16/20 06:14 05:35 05:35 WBC RBC 3.96 L Hgb 12.8 L Hct 37.8 L Chloride 110 H 108 H Carbon Dioxide BUN Glucose Calcium 8.2 L Alkaline Phosphatase Assessment and Plan Assessment: * 64-year-old male with long-standing history of seizure disorder, came again with breakthrough seizure. No obvious provoking factor identified and the sodium level was normal. Patient apparently is compliant with medications. His Keppra level was therapeutic. Plan: * Patient had another breakthrough seizure. Patient is already on maximal dose of Lamictal and Keppra. I would avoid further optimizing dose of Lamictal, otherwise will lead to side effects. I will start Zonegran 100 mg daily at night. The dose can be further increased as tolerated. I spoke to patient's daughter Pat, and she agreed with the management. Patient should follow-up with Dr. Alston to further optimize the dose of Zonegran. Neurologically clear for discharge.
[2020-03-16] MEDS ORDERED: ZONISAMIDE 100 MG CAP PO SCH (14:45)
[2020-03-16 15:33] VITALS: BP 165/85; PULSE 63; RESP 16
[2020-03-16] MEDS ORDERED: busPIRone HCl 5 MG TAB PO SCH (16:00)
[2020-03-16 16:42] LABS: Glucose,Whole Blood 82 mg/dL (75-99)
== END 2020-03-16 17:43 | disposition home or self-care (01) | DRG 101 ==
LOC: EEVIPCON 13:22 → EC 13:22 → 3SCARD 14:49
PROVIDERS: ADMIT Internal Medicine; ATTEND Internal Medicine
DX: G40.919 Epilepsy, unspecified, intractable, without status epilepticus (principal); I11.0 Hypertensive heart disease with heart failure; I50.9 Heart failure, unspecified; Z11.59 Encounter for screening for other viral diseases; D72.829 Elevated white blood cell count, unspecified; E03.9 Hypothyroidism, unspecified; F17.210 Nicotine dependence, cigarettes, uncomplicated; F20.9 Schizophrenia, unspecified; F31.9 Bipolar disorder, unspecified; F41.9 Anxiety disorder, unspecified; I45.10 Unspecified right bundle-branch block; J44.9 Chronic obstructive pulmonary disease, unspecified; K21.9 Gastro-esophageal reflux disease without esophagitis; K44.9 Diaphragmatic hernia without obstruction or gangrene; M19.90 Unspecified osteoarthritis, unspecified site; K57.90 Diverticulosis of intestine, part unspecified, without perforation or abscess without bleeding; R41.3 Other amnesia; Z79.890 Hormone replacement therapy; Z79.899 Other long term (current) drug therapy; Z91.81 History of falling; Z96.653 Presence of artificial knee joint, bilateral; Z82.49 Family history of ischemic heart disease and other diseases of the circulatory system; Z82.3 Family history of stroke; Z80.9 Family history of malignant neoplasm, unspecified
CPT/HCPCS: 36415; 80048; 80053; 80177; 80306; 83735; 85025; 85027; 87635; 93005; 99285

== ENCOUNTER 2020-03-17 17:50 | Emergency (ER) | payer MEDICARE ==
[2020-03-17] MEDS ORDERED: LORazepam 2 MG/ML INJ IV STA ×2 (17:51→17:55)
[2020-03-17] MEDS ORDERED: levETIRAcetam IV 1,000 MG in SALINE 1 100ML.BAG IVPB STA (17:52)
[2020-03-17 17:57] VITALS: TEMP 98.4
[2020-03-17 18:00] LABS: Glucose,Whole Blood 129 mg/dL (75-99)
--- NOTE | 2020-03-17 18:08 | ED ---
General Adult HPI - General Chief complaint: Seizure Stated complaint: seizure Source: EMS Mode of arrival: EMS Limitations: altered mental status - History of Present Illness Initial comments: Dictation was produced using [employer] dictation software. please excuse any grammatical, word or spelling errors. This patient was cared for during a federal and state declared state of emergency secondary to Covid 19 Chief Complaint: 64-year-old male with past medical history of seizure presents with seizure-like activity. History of Present Illness: 64-year-old male he has past medical history of seizures. Patient's currently taking Lamictal, Keppra and zonisamide. Patient is brought in by EMS. According to EMS patient has been having tonic-clonic like activity all day today. According EMS patient had been very aggressive upon their initial evaluation. Patient was loaded up into the ambulance is brought to the emergency department. While en route patient began having tonic clonic like activity. He had an IV placed and given 5 mg of IV Versed with s light improvement of symptoms. They report that patient had a tremor to his right arm the whole time. Patient unable to provide HPI at this time. Unable to obtain R was secondary to mental status. PHYSICAL EXAM: General Impression: Unresponsive, contracture to the right upper extremity, tonic-clonic like activity HEENT: Normocephalic atraumatic, extra-ocular movements intact, pupils equal and reactive to light bilaterally, no disease deviation Cardiovascular: Heart regular rate and rhythm Chest: Sonorous respirations Abdomen: abdomen soft, non-tender, non-distended, no organomegaly Musculoskeletal: Pulses present and equal in all extremities, no peripheral edema Neurological: Clonus to the bilateral lower extremity is, contracture to the right upper extremity, responsive to painful stimuli and voice. Flaccid with passive range of motion to the left upper extremity. Skin: Intact with no visualized rashes ED course: 64-year-old male presents today with tonic-clonic like activity. Vital signs upon arrival shows heart rate 103, rest of vital signs within acceptable limits. Patient is responsive to painful stimuli and loud voice. He is not unconscious. He does have clonus to the bilateral lower extremities with contractures to the right upper extremity. Physical presentation consistent with generalized tonoclonic seizure. At this point is nontender clear with patient symptoms represent. Patient was given 2 mg Ativan bolus twice with slight improvement of tremors however no significant improvement. Differential includes partial seizure versus serotonin syndrome. Medications were reviewed.EMR was reviewed. Patient's aunt was from and trazodone along with 3 antiseizure medications. Patient was observed in emergency department for several minutes with cessation of his tonic-clonic like activity. Patient reevaluated at bedside answer questions. He still appears to be altered. More history was obtained from daughter and guardian who reports that patient usually walkie-talkie. She states that he is behaving abnormally recently. Discussed patient case with the manager forms Dr. Robles and neurologist Dr. Rueda recommend patient be transferred to [facility] for higher level of care. Patient is well- appearing at this time he does not appear to be showing a tonic-clonic like activity. At this time l do not feel it's necessary for patient being intubated for status epilepticus. Patient case discussed with [facility] who is willing to accept patients care.Laboratory evaluation obtained. CBC unremarkable. Coag panel unremarkable. Metabolic panel shows anion gap acidosis. Lactic acidosis of 14.6. Ammonia elevated at 140. Toxicology panel is unremarkable. Chest x-ray and computed tomography scan of the brain is unremarkable for any acute processes. EKG interpretation: Ventricular rate 94, normal sinus rhythm,. 186, QRS 142, QTc 507. No NH prolongation, no QTC prolongation, no ST or T-wave changes noted. EKG compared to 03/14/2020 showing no changes. Overall, this EKG is unremarkable - Related Data Home Medications Medication Instructions Recorded Confirmed Montelukast [Singulair] 10 mg PO HS 12/30/17 03/17/20 Levothyroxine Sodium [Synthroid] 75 mcg PO DAILY 02/20/18 03/17/20 Famotidine 20 mg PO HS 11/25/19 03/17/20 Simethicone [Gas-X] 125 mg PO ACHS PRN 01/19/20 03/17/20 busPIRone HCL 15 mg PO TID 03/14/20 03/17/20 traZODone HCL 100 mg PO HS 03/14/20 03/17/20 Previous Rx's Medication Instructions Recorded levETIRAcetam [Keppra] 1,500 mg PO BID #60 tab 11/27/19 lamoTRIgine [LaMICtal] 200 mg PO BID #60 tab 01/21/20 lamoTRIgine [LaMICtal] 100 mg PO BID #60 tab 01/23/20 Zonisamide [Zonegran] 100 mg PO DAILY 30 Days #30 cap 03/16/20 Allergies Allergy/AdvReac Type Severity Reaction Status Date / Time No Known Allergies Allergy Verified 03/17/20 18:04 Review of Systems ROS Statement: Those systems with pertinent positive or pertinent negative responses have been documented in the HPI. ROS Other: All systems not noted in ROS Statement are negative. Past Medical History Past Medical History: Chest Pain / Angina, Heart Failure, COPD, GERD/Reflux, Hypertension, Seizure Disorder, Thyroid Disorder Additional Past Medical History / Comment(s): falls,bronchitis,Memory impairment, legally incapacitated, hypothyroid, small hiatal hernia, diverticulosis History of Any Multi-Drug Resistant Organisms: None Reported Past Surgical History: Hernia Repair, Joint Replacement, Orthopedic Surgery Additional Past Surgical History / Comment(s): 08/2017 EGGD/colonoscopy, prior colonoscopy, umbilical hernia repair, L total knee, R partial knee replacement, R lower leg fracture with ORIF (hardware in place), ERCP, bilateral knee arthroscopies. Past Anesthesia/Blood Transfusion Reactions: No Reported Reaction Past Psychological History: Anxiety, Bipolar, Depression, Schizophrenia Smoking Status: Current every day smoker Past Alcohol Use History: Occasional Past Drug Use History: Marijuana - Past Family History Father Family Medical History: Cancer, Coronary Artery Disease (CAD), Pneumonia Additional Family Medical History / Comment(s): Father had a pacemaker. He of pneumonia. Mother Family Medical History: Coronary Artery Disease (CAD), CVA/TIA General Exam Limitations: altered mental status Course Vital Signs 03/17/20 03/17/20 03/17/20 17:52 18:30 19:28 Temperature 98.4 F Pulse Rate 103 H 100 88 Respiratory 16 18 16 Rate Blood Pressure 115/80 124/80 116/80 O2 Sat by Pulse 96 99 97 Oximetry Medical Decision Making - Lab Data Result diagrams: 03/17/20 18:00 03/17/20 18:00 Lab Results 03/17/20 03/17/20 03/17/20 Range/Units 17:58 18:00 18:00 WBC 10.1 (3.8-10.6) k/uL RBC 4.39 (4.30-5.90) m/uL Hgb 14.0 (13.0-17.5) gm/dL Hct 43.4 (39.0-53.0) % MCV 98.9 (80.0-100.0) fL MCH 31.8 (25.0-35.0) pg MCHC 32.2 (31.0-37.0) g/dL RDW 13.0 (11.5-15.5) % Plt Count 251 (150-450) k/uL Neutrophils % 59 % Lymphocytes % 29 % Monocytes % 6 % Eosinophils % 2 % Basophils % 1 % Neutrophils # 6.0 (1.3-7.7) k/uL Lymphocytes # 2.9 (1.0-4.8) k/uL Monocytes # 0.6 (0-1.0) k/uL Eosinophils # 0.2 (0-0.7) k/uL Basophils # 0.1 (0-0.2) k/uL PT 10.3 (9.0-12.0) sec INR 1.0 (<1.2) APTT 25.2 (22.0-30.0) sec Sodium (137-145) mmol/L Potassium (3.5-5.1) mmol/L Chloride (98-107) mmol/L Carbon Dioxide (22-30) mmol/L Anion Gap mmol/L BUN (9-20) mg/dL Creatinine (0.66-1.25) mg/dL Est GFR (CKD-EPI)AfAm (>60 ml/min/1.73 sqM) Est GFR (CKD-EPI)NonAf (>60 ml/min/1.73 sqM) Glucose (74-99) mg/dL POC Glucose (mg/dL) 129 H (75-99) mg/dL POC Glu Loan Manager ID [place], Sera Osmolality ([phone]) mosm/kg Plasma Lactic Acid Pramod (0.7-2.0) mmol/L Calcium (8.4-10.2) mg/dL Ionized Calcium Kacie (4.5-5.3) mg/dL Magnesium (1.6-2.3) mg/dL Total Bilirubin (0.2-1.3) mg/dL AST (17-59) U/L ALT (4-49) U/L Alkaline Phosphatase (38-126) U/L Ammonia (<30) umol/L Creatine Kinase (55-170) U/L Troponin I (0.000-0.034) ng/mL Total Protein (6.3-8.2) g/dL Albumin (3.5-5.0) g/dL TSH (0.465-4.680) mIU/L Salicylates mg/dL Acetaminophen ug/mL Serum Alcohol mg/dL 03/17/20 03/17/20 03/17/20 Range/Units 18:00 18:00 18:00 WBC (3.8-10.6) k/uL RBC (4.30-5.90) m/uL Hgb (13.0-17.5) gm/dL Hct (39.0-53.0) % MCV (80.0-100.0) fL MCH (25.0-35.0) pg MCHC (31.0-37.0) g/dL RDW (11.5-15.5) % Plt Count (150-450) k/uL Neutrophils % % Lymphocytes % % Monocytes % % Eosinophils % % Basophils % % Neutrophils # (1.3-7.7) k/uL Lymphocytes # (1.0-4.8) k/uL Monocytes # (0-1.0) k/uL Eosinophils # (0-0.7) k/uL Basophils # (0-0.2) k/uL PT (9.0-12.0) sec INR (<1.2) APTT (22.0-30.0) sec Sodium 139 (137-145) mmol/L Potassium 4.4 (3.5-5.1) mmol/L Chloride 102 (98-107) mmol/L Carbon Dioxide 14 L (22-30) mmol/L Anion Gap 23 mmol/L BUN 12 (9-20) mg/dL Creatinine 1.35 H (0.66-1.25) mg/dL Est GFR (CKD-EPI)AfAm 65 (>60 ml/min/1.73 sqM) Est GFR (CKD-EPI)NonAf 56 (>60 ml/min/1.73 sqM) Glucose 130 H (74-99) mg/dL POC Glucose (mg/dL) (75-99) mg/dL POC Glu Loan Manager ID Osmolality 290 ([phone]) mosm/kg Plasma Lactic Acid Pramod 14.6 H* (0.7-2.0) mmol/L Calcium 9.6 (8.4-10.2) mg/dL Ionized Calcium Kacie 5.0 (4.5-5.3) mg/dL Magnesium 2.4 H (1.6-2.3) mg/dL Total Bilirubin 0.4 (0.2-1.3) mg/dL AST 36 (17-59) U/L ALT 25 (4-49) U/L Alkaline Phosphatase 73 (38-126) U/L Ammonia 140 H (<30) umol/L Creatine Kinase 366 H (55-170) U/L Troponin I <0.012 (0.000-0.034) ng/mL Total Protein 7.6 (6.3-8.2) g/dL Albumin 4.9 (3.5-5.0) g/dL TSH 3.900 (0.465-4.680) mIU/L Salicylates <1.0 mg/dL Acetaminophen <10.0 ug/mL Serum Alcohol <10 mg/dL Critical Care Time Critical Care Time: Yes Total Critical Care Time: 33 Disposition Clinical Impression: Status epilepticus Disposition: OTHER INSTITUTION NOT DEFINED Condition: Fair Referrals: Lucia Kc MD [Primary Care Provider] - 1-2 days Time of Disposition: 19:43 - Out of Hospital Transfer - Req. Specs Out of Hospital Transfer - Requested Specifics: Other Emergency Center ([facility])
[2020-03-17 18:13] LABS: Basophils # (A) 0.1 k/uL (0-0.2); Basophils % (A) 1 %; Eosinophils # (A) 0.2 k/uL (0-0.7); Eosinophils % (A) 2 %; HCT 43.4 % (39.0-53.0); Lymphocytes # (A) 2.9 k/uL (1.0-4.8); Lymphocytes % (A) 29 %; MCH 31.8 pg (25.0-35.0); MCHC 32.2 g/dL (31.0-37.0); MCV 98.9 fL (80.0-100.0); Mean Platelet Volume 7.2; Monocytes # (A) 0.6 k/uL (0-1.0); Monocytes % (A) 6 %; Neutrophils % (A) 59 %; Platelet Count 251 k/uL (150-450); RBC 4.39 m/uL (4.30-5.90); WBC 10.1 k/uL (3.8-10.6)
[2020-03-17 18:22] LABS: Partial Thromboplastin Time 25.2 sec (22.0-30.0); Prothrombin Time 10.3 sec (9.0-12.0)
[2020-03-17 18:30] LABS: AST 36 U/L (17-59); Acetaminophen <10.0 ug/mL; African American GFR (CKD) 65 (>60 ml/min/1.73 sqM); Albumin 4.9 g/dL (3.5-5.0); Alcohol <10 mg/dL; Alkaline Phosphatase 73 U/L (38-126); Anion Gap 23 mmol/L; Blood Urea Nitrogen 12 mg/dL (9-20); Calcium 9.6 mg/dL (8.4-10.2); Carbon Dioxide 14 mmol/L (22-30); Chloride 102 mmol/L (98-107); Creatine Kinase 366 U/L (55-170); Glucose 130 mg/dL (74-99); Magnesium 2.4 mg/dL (1.6-2.3); Non-African American GFR(CKD) 56 (>60 ml/min/1.73 sqM); Potassium 4.4 mmol/L (3.5-5.1); Salicylate <1.0 mg/dL; Sodium 139 mmol/L (137-145); Total Bilirubin 0.4 mg/dL (0.2-1.3); Total Protein 7.6 g/dL (6.3-8.2)
--- NOTE | 2020-03-17 18:34 | CT ---
EXAMINATION TYPE: CT brain wo con DATE OF EXAM: 03/17/2020 HISTORY: Seizure-like activity. CT DLP: 1099.4 mGycm. Automated Exposure Control for Dose Reduction was Utilized. TECHNIQUE: CT scan of the head is performed without contrast. COMPARISON: Prior CT brain January 21, 2020.. FINDINGS: There is no acute intracranial hemorrhage or midline shift identified. There is mild diff use ventricular and sulcal prominence consistent with mild diffuse age-related cerebral atrophy. Vitale -white matter differentiation fairly well maintained. The globes are intact and the visualized sinus es are clear. IMPRESSION: No acute intracranial hemorrhage or midline shift. There is mild diffuse age-related ce rebral atrophy redemonstrated. No significant change from prior.
[2020-03-17 18:36] LABS: ALT 25 U/L (4-49); Lactic Acid, Venous 14.6 mmol/L (0.7-2.0)
--- NOTE | 2020-03-17 18:37 | XR ---
EXAMINATION TYPE: XR chest 1V portable DATE OF EXAM: 03/17/2020 COMPARISON: Chest x-ray January 19, 2020 HISTORY: Seizure. History of COPD and heart failure. TECHNIQUE: Single AP portable frontal upright view of the chest is obtained. FINDINGS: Overlying EKG leads on current study. There is some chronic brachial change without suspici ous new focal air space opacity, pleural effusion, or pneumothorax seen. The cardiac silhouette size is upper limits of normal. The osseous structures are intact. IMPRESSION: No acute process.
[2020-03-17 19:29] VITALS: RESP 16
[2020-03-17] MEDS ORDERED: SODIUM CHLORIDE 0.9% 1,000 ML IV STA (19:32)
[2020-03-17 20:58] VITALS: BP 146/87; PULSE 90
== END 2020-03-17 21:06 | disposition other institution (70) ==
LOC: EC 17:50
DX: G40.901 Epilepsy, unspecified, not intractable, with status epilepticus (principal); E87.2 Acidosis; E72.20 Disorder of urea cycle metabolism, unspecified; I11.0 Hypertensive heart disease with heart failure; J44.9 Chronic obstructive pulmonary disease, unspecified; I50.9 Heart failure, unspecified; I25.2 Old myocardial infarction; K21.9 Gastro-esophageal reflux disease without esophagitis; E03.9 Hypothyroidism, unspecified; F41.9 Anxiety disorder, unspecified; F31.9 Bipolar disorder, unspecified; G31.84 Mild cognitive impairment of uncertain or unknown etiology; F17.200 Nicotine dependence, unspecified, uncomplicated; Z96.653 Presence of artificial knee joint, bilateral; Z79.890 Hormone replacement therapy; Z79.899 Other long term (current) drug therapy
CPT/HCPCS: 99291 ×2; 96374 ×2; 96375 ×2; 96361 ×2; 36415; 93005; 83930; 80053; 84443; 82330; 82140; 82550; 83605; 83735; 84484; 85025; 85610; 85730; 83520; 71045; 70450; G0480 ×2; J2060; J1953; 80320; 80329

== ENCOUNTER 2020-05-24 12:03 | Emergency (ER) | payer MEDICARE ==
--- NOTE | 2020-05-24 12:39 | ED ---
Seizure HPI - General Chief Complaint: Seizure Stated Complaint: Seizure Time Seen by Provider: 05/24/20 12:10 Source: EMS Mode of arrival: EMS Limitations: no limitations - History of Present Illness Initial Comments: 64-year-old male presenting today for chief complaint of seizure. I spoke with patient's daughter who states that he has a history of severe seizure disorder 80s on a total of 4 medications. She states that she was walking with patient she states is very warm L and he was stressed talking about a stressful life situation when he giggled like he does sometimes and began acting slightly confused she states this happens almost everytime he has a seizure. SHe staets she made him sit down when his entire body began shaking for approximately 1 minute. Patient did take all seizure medications today (morning dose), lamictal 300mg, Keppra 1500mg, Depakote 250mg and zonisamide 100mg. Patient on arrival appears post ictal. He has difficulty remembering the events. Daughter states this is normal after seizure. Patient has no complaints. Denies ETOH use. - Related Data Home Medications Medication Instructions Recorded Confirmed Montelukast [Singulair] 10 mg PO HS 12/30/17 03/17/20 Levothyroxine Sodium [Synthroid] 75 mcg PO DAILY 02/20/18 03/17/20 Famotidine 20 mg PO HS 11/25/19 03/17/20 Simethicone [Gas-X] 125 mg PO ACHS PRN 01/19/20 03/17/20 busPIRone HCL 15 mg PO TID 03/14/20 03/17/20 traZODone HCL 100 mg PO HS 03/14/20 03/17/20 Previous Rx's Medication Instructions Recorded levETIRAcetam [Keppra] 1,500 mg PO BID #60 tab 11/27/19 lamoTRIgine [LaMICtal] 200 mg PO BID #60 tab 01/21/20 lamoTRIgine [LaMICtal] 100 mg PO BID #60 tab 01/23/20 Zonisamide [Zonegran] 100 mg PO DAILY 30 Days #30 cap 03/16/20 Allergies Allergy/AdvReac Type Severity Reaction Status Date / Time No Known Allergies Allergy Verified 03/17/20 18:04 Review of Systems ROS Statement: Those systems with pertinent positive or pertinent negative responses have been documented in the HPI. ROS Other: All systems not noted in ROS Statement are negative. Past Medical History Past Medical History: Chest Pain / Angina, Heart Failure, COPD, GERD/Reflux, Hypertension, Seizure Disorder, Thyroid Disorder Additional Past Medical History / Comment(s): falls,bronchitis,Memory impairment, legally incapacitated, hypothyroid, small hiatal hernia, diverticulosis History of Any Multi-Drug Resistant Organisms: None Reported Past Surgical History: Hernia Repair, Joint Replacement, Orthopedic Surgery Additional Past Surgical History / Comment(s): 08/2017 EGGD/colonoscopy, prior colonoscopy, umbilical hernia repair, L total knee, R partial knee replacement, R lower leg fracture with ORIF (hardware in place), ERCP, bilateral knee arthroscopies. Past Anesthesia/Blood Transfusion Reactions: No Reported Reaction Past Psychological History: Anxiety, Bipolar, Depression, Schizophrenia Past Alcohol Use History: Occasional Past Drug Use History: Marijuana - Past Family History Father Family Medical History: Cancer, Coronary Artery Disease (CAD), Pneumonia Additional Family Medical History / Comment(s): Father had a pacemaker. He of pneumonia. Mother Family Medical History: Coronary Artery Disease (CAD), CVA/TIA General Exam - General Exam Comments Initial Comments: General: The patient is awake and alert, in no distress, and does not appear acutely ill. Eye: +3 mm pupils are equal, round and reactive to light, extra-ocular movements are intact. No nystagmus. There is normal conjunctiva bilaterally. No signs of icterus. Ears, nose, mouth and throat: There are moist mucous membranes and no oral lesions. No raccoon or Brody sign Neck: The neck is supple, there is no tenderness or JVD. Cardiovascular: There is a regular rate and rhythm. No murmur, rub or gallop is appreciated. Respiratory: Lungs are clear to auscultation, respirations are non-labored, breath sounds are equal. No wheezes, stridor, rales, or rhonchi. Gastrointestinal: Soft, non-distended, non-tender abdomen without masses or organomegaly noted. There is no rebound or guarding present. Musculoskeletal: Normal ROM, no tenderness. Strength 5/5. Sensation intact. Radial pulses equal bilaterally 2+. Neurological: A&O x 3. CN II-XII intact, There are no obvious motor or sensory deficits. Coordination appears grossly intact. Patient has some difficulty thinking of what he wants to say, remembering events of the day *called daughter she states this happens after the seizures usually Skin: Skin is warm and dry and no rashes or lesions are noted. Psychiatric: Cooperative, appropriate mood & affect, normal judgment. On reeevaluation: Previously appreciated confusion, difficulty thinking of what he would like to say resolved. Patient no longer appears confused, Ct (-). Limitations: no limitations Course Vital Signs 05/24/20 05/24/20 12:13 13:03 Temperature 98.1 F Pulse Rate 60 60 Respiratory 18 18 Rate Blood Pressure 123/94 124/73 O2 Sat by Pulse 98 97 Oximetry Medical Decision Making - Medical Decision Making 64-year-old male with history of severe seizure disorder and for antiepileptics. Patient seizures AFTER 1 minute. Patient is compliant medications per daughter. Patient states that his symptoms described over the phone and what she had seen prior to EMS were very tpyical . No other focal neurological deficits aside from patient seeming globally confused on arrival which resolved. CT (-) Labs stable. Patient is agreeable to discharge as is his POA who is coming to machine pecan picker the patient. Discussed case wtih Dr. Dick who is agreeable to care plan and discharge. - Lab Data Result diagrams: 05/24/20 13:01 05/24/20 13:01 Lab Results 05/24/20 05/24/20 Range/Units 13:01 13:01 WBC 7.2 (3.8-10.6) k/uL RBC 4.04 L (4.30-5.90) m/uL Hgb 13.3 (13.0-17.5) gm/dL Hct 38.6 L (39.0-53.0) % MCV 95.5 (80.0-100.0) fL MCH 33.0 (25.0-35.0) pg MCHC 34.6 (31.0-37.0) g/dL RDW 13.1 (11.5-15.5) % Plt Count 216 (150-450) k/uL Neutrophils % 64 % Lymphocytes % 26 % Monocytes % 5 % Eosinophils % 2 % Basophils % 1 % Neutrophils # 4.6 (1.3-7.7) k/uL Lymphocytes # 1.9 (1.0-4.8) k/uL Monocytes # 0.4 (0-1.0) k/uL Eosinophils # 0.2 (0-0.7) k/uL Basophils # 0.1 (0-0.2) k/uL Sodium 133 L (137-145) mmol/L Potassium 5.0 (3.5-5.1) mmol/L Chloride 100 (98-107) mmol/L Carbon Dioxide 23 (22-30) mmol/L Anion Gap 10 mmol/L BUN 18 (9-20) mg/dL Creatinine 0.99 (0.66-1.25) mg/dL Est GFR (CKD-EPI)AfAm >90 (>60 ml/min/1.73 sqM) Est GFR (CKD-EPI)NonAf 81 (>60 ml/min/1.73 sqM) Glucose 92 (74-99) mg/dL Calcium 8.8 (8.4-10.2) mg/dL Total Bilirubin 0.4 (0.2-1.3) mg/dL AST 23 (17-59) U/L ALT 16 (4-49) U/L Alkaline Phosphatase 61 (38-126) U/L Total Protein 6.5 (6.3-8.2) g/dL Albumin 4.3 (3.5-5.0) g/dL Valproic Acid 42.3 ug/mL Ventricular rate 65 bpm, NH interval 204 ms, QRS ration 152 ms, QT/QTC 418/434 ms. Normal sinus and a right bundle-branch block. No ST elevation or depression is appreciated 05/24/20 12:20 Disposition Clinical Impression: Seizure Disposition: HOME SELF-CARE Condition: Good Instructions (If sedation given, give patient instructions): Recurrent Seizures in Adults (ED) Additional Instructions: Please use medication as discussed. Please follow-up with family doctor in the next 2 days, please follow-up with your neurologist in next week. Please return to emergency room if the symptoms increase or worsen or for any other concerns. Is patient prescribed a controlled substance at d/c from ED?: No Referrals: Lucia Kc MD [Primary Care Provider] - 1-2 days Time of Disposition: 13:49
[2020-05-24] MEDS ORDERED: SODIUM CHLORIDE 0.9% 1,000 ML IV ONE (12:40)
[2020-05-24] MEDS ORDERED: SODIUM CHLORIDE 0.9% 500 ML 500 ML IV ONE (12:40)
[2020-05-24] MEDS ORDERED: SODIUM CHLORIDE 0.9% 1,000 ML IV SCH (12:45)
[2020-05-24 13:20] LABS: Basophils # (A) 0.1 k/uL (0-0.2); Basophils % (A) 1 %; Eosinophils # (A) 0.2 k/uL (0-0.7); Eosinophils % (A) 2 %; HCT 38.6 % (39.0-53.0); HGB 13.3 gm/dL (13.0-17.5); Lymphocytes # (A) 1.9 k/uL (1.0-4.8); Lymphocytes % (A) 26 %; MCHC 34.6 g/dL (31.0-37.0); MCV 95.5 fL (80.0-100.0); Mean Platelet Volume 7.3; Monocytes # (A) 0.4 k/uL (0-1.0); Monocytes % (A) 5 %; Neutrophils # (A) 4.6 k/uL (1.3-7.7); Neutrophils % (A) 64 %; Platelet Count 216 k/uL (150-450); RBC 4.04 m/uL (4.30-5.90); RDW 13.1 % (11.5-15.5); WBC 7.2 k/uL (3.8-10.6)
[2020-05-24 13:27] LABS: ALT 16 U/L (4-49); AST 23 U/L (17-59); African American GFR (CKD) >90 (>60 ml/min/1.73 sqM); Albumin 4.3 g/dL (3.5-5.0); Alkaline Phosphatase 61 U/L (38-126); Anion Gap 10 mmol/L; Blood Urea Nitrogen 18 mg/dL (9-20); Calcium 8.8 mg/dL (8.4-10.2); Carbon Dioxide 23 mmol/L (22-30); Chloride 100 mmol/L (98-107); Glucose 92 mg/dL (74-99); Non-African American GFR(CKD) 81 (>60 ml/min/1.73 sqM); Sodium 133 mmol/L (137-145); Total Bilirubin 0.4 mg/dL (0.2-1.3); Total Protein 6.5 g/dL (6.3-8.2)
[2020-05-24 13:33] LABS: Valproic Acid (Depakene) 42.3 ug/mL
--- NOTE | 2020-05-24 13:42 | CT ---
EXAMINATION TYPE: CT brain wo con DATE OF EXAM: 05/24/2020 COMPARISON: 03/17/2020 HISTORY: 64-year-old male Seizure TECHNIQUE: Examination was done in axial plane without intravenous contrast. Coronal and sagittal r econstructions performed. CT DLP: 1095.4 mGycm Automated exposure control for dose reduction was used. FINDINGS: There is no evidence of acute intracranial hemorrhage, acute ischemic changes, mass, mass-effect, or extra-axial fluid collection. There is no effacement of cerebral sulci or basal subarachnoid cister ns. There is no hydrocephalus. There is no midline shift. Vitale-white matter distinction is preserv ed. Mild cerebral cortical atrophy. Paranasal sinuses and mastoid air cells are well pneumatized. Leftward anterior nasal septal deviatio n. Orbits and globes are intact. IMPRESSION: Similar mild cerebral cortical atrophy. No acute intracranial abnormality seen.
[2020-05-24 14:02] VITALS: BP 160/95
[2020-05-24 14:23] VITALS: PULSE 62; RESP 16; TEMP 98
== END 2020-05-24 14:20 | disposition home or self-care (01) ==
LOC: EC 12:03
DX: G40.909 Epilepsy, unspecified, not intractable, without status epilepticus (principal); F41.9 Anxiety disorder, unspecified; F31.9 Bipolar disorder, unspecified; I11.0 Hypertensive heart disease with heart failure; I50.9 Heart failure, unspecified; K21.9 Gastro-esophageal reflux disease without esophagitis; J44.9 Chronic obstructive pulmonary disease, unspecified; I25.2 Old myocardial infarction; E03.9 Hypothyroidism, unspecified; Z79.890 Hormone replacement therapy; Z79.899 Other long term (current) drug therapy; Z96.653 Presence of artificial knee joint, bilateral
CPT/HCPCS: 36415; 70450; 80053; 80164; 80175; 80177; 85025; 93005; 96360; 99284

== ENCOUNTER → 2020-06-14 | Outpatient (CLI) | payer MEDICARE ==
[2020-06-14 12:40] LABS: HCT 41.3 % (39.0-53.0); HGB 13.6 gm/dL (13.0-17.5); MCH 31.3 pg (25.0-35.0); MCHC 32.9 g/dL (31.0-37.0); MCV 95.1 fL (80.0-100.0); Mean Platelet Volume 7.5; Platelet Count 244 k/uL (150-450); RBC 4.34 m/uL (4.30-5.90); RDW 13.2 % (11.5-15.5); WBC 9.3 k/uL (3.8-10.6)
[2020-06-14 21:13] LABS: Albumin 4.4 g/dL (3.80-4.90); Albumin/Globulin Ratio 2.2 (1.60-3.17); Anion Gap 9.7 mmol/L (4.00-12.00); Calcium 9.3 mg/dL (8.7-10.3); Carbon Dioxide 23.3 mmol/L (21.6-31.8); Non-African American GFR(CKD) 49.2 (60.0-200.0); Potassium 4.3 mmol/L (3.5-5.5); Total Bilirubin 0.5 mg/dL (0.2-1.2); Total Protein 6.4 g/dL (6.2-8.2)
[2020-06-14 22:24] LABS: Valproic Acid (Depakene) 14.9 ug/mL (50.0-100.0)
== END | disposition home or self-care (01) ==
LOC: LABWHC1 10:14
PROVIDERS: ATTEND Physician Assistant
DX: R56.9 Unspecified convulsions (principal); Z51.81 Encounter for therapeutic drug level monitoring
CPT/HCPCS: 36415; 80053; 80164; 80175; 85027

== ENCOUNTER 2020-06-22 15:27 | Emergency (ER) | payer MEDICARE ==
[2020-06-22 15:34] VITALS: TEMP 98
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
[2020-06-22 15:58] VITALS: BP 175/96; PULSE 60; RESP 16
== END 2020-06-22 15:58 | disposition home or self-care (01) ==
LOC: EC 15:27
DX: H92.01 Otalgia, right ear (principal); J44.9 Chronic obstructive pulmonary disease, unspecified; E03.9 Hypothyroidism, unspecified; I11.0 Hypertensive heart disease with heart failure; I50.9 Heart failure, unspecified; F41.9 Anxiety disorder, unspecified; F31.9 Bipolar disorder, unspecified; F20.9 Schizophrenia, unspecified; Z79.890 Hormone replacement therapy; Z79.899 Other long term (current) drug therapy; Z79.51 Long term (current) use of inhaled steroids; Z96.653 Presence of artificial knee joint, bilateral
CPT/HCPCS: 99283

== ENCOUNTER → 2020-07-08 | Outpatient (CLI) | payer MEDICARE | END | disposition home or self-care (01) | LOC: LABWHC1 12:53 | PROVIDERS: ATTEND Physician Assistant | DX: Z51.81 Encounter for therapeutic drug level monitoring (principal) | CPT/HCPCS: 36415; 80164 ==

== ENCOUNTER 2020-07-23 17:58 | Emergency (ER) | payer MEDICARE ==
[2020-07-23 18:07] VITALS: RESP 18; TEMP 97.5
[2020-07-23 18:14] LABS: Glucose,Whole Blood 108 mg/dL (75-99)
[2020-07-23] MEDS ORDERED: SODIUM CHLORIDE 0.9% 500 ML 500 ML IV STA (18:18)
[2020-07-23] MEDS ORDERED: SODIUM CHLORIDE 0.9% 1,000 ML IV STA ×2 (18:18→20:42)
[2020-07-23] MEDS ORDERED: LORazepam 2 MG/ML INJ IV STA ×2 (18:19→18:33)
[2020-07-23 18:36] LABS: Basophils # (A) 0.1 k/uL (0-0.2); Basophils % (A) 1 %; Eosinophils # (A) 0.1 k/uL (0-0.7); Eosinophils % (A) 1 %; HCT 40.6 % (39.0-53.0); Lymphocytes # (A) 1.1 k/uL (1.0-4.8); Lymphocytes % (A) 11 %; MCH 30.7 pg (25.0-35.0); MCHC 32.1 g/dL (31.0-37.0); MCV 95.6 fL (80.0-100.0); Mean Platelet Volume 6.6; Monocytes # (A) 0.5 k/uL (0-1.0); Monocytes % (A) 5 %; Neutrophils # (A) 8.6 k/uL (1.3-7.7); Neutrophils % (A) 82 %; Platelet Count 239 k/uL (150-450); RBC 4.24 m/uL (4.30-5.90); RDW 13.1 % (11.5-15.5); WBC 10.4 k/uL (3.8-10.6)
[2020-07-23 18:46] LABS: ALT 14 U/L (4-49); AST 25 U/L (17-59); African American GFR (CKD) 76 (>60 ml/min/1.73 sqM); Albumin 4.5 g/dL (3.5-5.0); Alcohol <10 mg/dL; Alkaline Phosphatase 65 U/L (38-126); Anion Gap 10 mmol/L; Blood Urea Nitrogen 23 mg/dL (9-20); Calcium 8.8 mg/dL (8.4-10.2); Carbon Dioxide 26 mmol/L (22-30); Chloride 101 mmol/L (98-107); Glucose 104 mg/dL (74-99); Magnesium 2.4 mg/dL (1.6-2.3); Non-African American GFR(CKD) 66 (>60 ml/min/1.73 sqM); Potassium 5.4 mmol/L (3.5-5.1); Sodium 137 mmol/L (137-145); Total Bilirubin 0.3 mg/dL (0.2-1.3); Total Protein 6.9 g/dL (6.3-8.2)
[2020-07-23 18:52] LABS: Valproic Acid (Depakene) 19.5 ug/mL
[2020-07-23] MEDS ORDERED: levETIRAcetam IV 1,000 MG in SALINE 1 100ML.BAG IVPB STA (18:54)
--- NOTE | 2020-07-23 19:01 | CT ---
EXAMINATION TYPE: CT brain cspine wo con DATE OF EXAM: 07/23/2020 COMPARISON: CT brain 05/24/2020 HISTORY: Seizure CT DLP: 1376 mGycm Automated exposure control for dose reduction was used. Ventricles have normal size. There is no mass effect nor midline shift. There is no sign of intracran ial hemorrhage. Calvarium is intact. Skull base is intact. Cervical vertebra have normal alignment. There is narrowing of disc spaces throughout the cervical sp ine with spurring. Facet joints are intact. There is mild cervical hypertrophic facet arthropathy. Th e vertebral soft tissues are intact. IMPRESSION: Negative CT scan of the brain. No change compared to old exam. Moderate multilevel cervical spondylotic changes. No fracture seen.
--- NOTE | 2020-07-23 19:10 | XR ---
EXAMINATION TYPE: XR chest 1V portable DATE OF EXAM: 07/23/2020 COMPARISON: 03/17/2020 HISTORY: Seizure TECHNIQUE: FINDINGS: There is no heart failure nor confluent pneumonic infiltrate. Costophrenic angles are clear . There are chest leads. Thoracic aorta is intact. There is no evidence of pleural effusion. IMPRESSION: No active cardiopulmonary disease. No change.
[2020-07-23 21:18] VITALS: BP 148/85; PULSE 86
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
== END 2020-07-23 21:52 | disposition other institution (70) ==
LOC: EC 17:58
DX: G40.409 Other generalized epilepsy and epileptic syndromes, not intractable, without status epilepticus (principal); S00.83XA Contusion of other part of head, initial encounter; I11.0 Hypertensive heart disease with heart failure; I50.9 Heart failure, unspecified; J44.9 Chronic obstructive pulmonary disease, unspecified; K21.9 Gastro-esophageal reflux disease without esophagitis; K44.9 Diaphragmatic hernia without obstruction or gangrene; F41.9 Anxiety disorder, unspecified; I20.9 Angina pectoris, unspecified; F31.9 Bipolar disorder, unspecified; Z79.899 Other long term (current) drug therapy; Z96.653 Presence of artificial knee joint, bilateral; Y92.410 Unspecified street and highway as the place of occurrence of the external cause; V89.2XXA Person injured in unspecified motor-vehicle accident, traffic, initial encounter
CPT/HCPCS: 36415; 93005; 80164; 80053; 82140; 83690; 83735; 85025; 71045; 72125; 70450; 99291; 96365; 96375; 96376; 96361 ×3; G0480; J2060; J1953; 80320

== ENCOUNTER 2020-07-27 21:29 | Inpatient (IN) | payer MEDICARE ==
[2020-07-27] MEDS ORDERED: SODIUM CHLORIDE 0.9% 1,000 ML IV STA ×3 (21:40→22:36)
[2020-07-27] MEDS ORDERED: levETIRAcetam IV 1,500 MG in SALINE 1 100ML.BAG IVPB STA (21:40)
[2020-07-27] MEDS ORDERED: DIAZEPAM 5 MG/ML 2 ML INJ IVP STA (21:40)
--- NOTE | 2020-07-27 21:42 | ED ---
Seizure HPI - General Chief Complaint: Seizure Stated Complaint: Seizures Time Seen by Provider: 07/27/20 21:30 Source: EMS, RN notes reviewed, old records reviewed Mode of arrival: EMS Limitations: no limitations - History of Present Illness Initial Comments: This is a 64-year-old male DF for evaluation patient Dese for evaluation regarding recurrent seizures with status epilepticus. Patient is a poor historian due to postictal state recurrent seizures. Patient has multiple recent visits for recurrent seizure MD Complaint: seizure, shaking -: minutes(s) Description of Episode: post-event confusion -: second(s), minutes(s) Witnessed: yes - by EMS Trauma: No Seizure History: known seizure disorder Place: home Possible Precipitating Event: none Associated Symptoms: denies other symptoms Treatments Prior to Arrival: none - Related Data Home Medications Medication Instructions Recorded Confirmed Montelukast [Singulair] 10 mg PO HS 12/30/17 07/23/20 Famotidine 20 mg PO HS 11/25/19 07/23/20 busPIRone HCL 15 mg PO TID 03/14/20 07/23/20 traZODone HCL 100 mg PO HS 03/14/20 07/23/20 Divalproex [Depakote] 250 mg PO TID 07/23/20 07/23/20 Metoprolol Tartrate [Lopressor] 25 mg PO AC-BID 07/23/20 07/23/20 Venlafaxine HCl [Effexor XR] 225 mg PO DAILY 07/23/20 07/23/20 lamoTRIgine [LaMICtal] 300 mg PO BID 07/23/20 07/23/20 Previous Rx's Medication Instructions Recorded levETIRAcetam [Keppra] 1,500 mg PO BID #60 tab 11/27/19 Zonisamide [Zonegran] 100 mg PO DAILY 30 Days #30 cap 03/16/20 Allergies Allergy/AdvReac Type Severity Reaction Status Date / Time No Known Allergies Allergy Verified 07/23/20 19:54 Review of Systems ROS Statement: Those systems with pertinent positive or pertinent negative responses have been documented in the HPI. ROS Other: All systems not noted in ROS Statement are negative. Past Medical History Past Medical History: Chest Pain / Angina, Heart Failure, COPD, GERD/Reflux, Hypertension, Seizure Disorder, Thyroid Disorder Additional Past Medical History / Comment(s): falls,bronchitis,Memory impairment, legally incapacitated, hypothyroid, small hiatal hernia, diverticulosis History of Any Multi-Drug Resistant Organisms: None Reported Past Surgical History: Hernia Repair, Joint Replacement, Orthopedic Surgery Additional Past Surgical History / Comment(s): 08/2017 EGGD/colonoscopy, prior colonoscopy, umbilical hernia repair, L total knee, R partial knee replacement, R lower leg fracture with ORIF (hardware in place), ERCP, bilateral knee arthroscopies. Past Anesthesia/Blood Transfusion Reactions: No Reported Reaction Past Psychological History: Anxiety, Bipolar, Depression, Schizophrenia Smoking Status: Unknown if ever smoked Past Alcohol Use History: Occasional Past Drug Use History: Marijuana - Past Family History Father Family Medical History: Cancer, Coronary Artery Disease (CAD), Pneumonia Additional Family Medical History / Comment(s): Father had a pacemaker. He of pneumonia. Mother Family Medical History: Coronary Artery Disease (CAD), CVA/TIA General Exam Limitations: no limitations, altered mental status General appearance: alert, in no apparent distress, anxious Head exam: Present: atraumatic, normocephalic, normal inspection Eye exam: Present: normal appearance, PERRL, EOMI. Absent: scleral icterus, conjunctival injection, periorbital swelling ENT exam: Present: normal exam, mucous membranes moist Neck exam: Present: normal inspection. Absent: tenderness, meningismus, lymphadenopathy Respiratory exam: Present: normal lung sounds bilaterally. Absent: respiratory distress, wheezes, rales, rhonchi, stridor Cardiovascular Exam: Present: normal rhythm, tachycardia, normal heart sounds. Absent: systolic murmur, diastolic murmur, rubs, gallop, clicks GI/Abdominal exam: Present: soft, normal bowel sounds. Absent: distended, tenderness, guarding, rebound, rigid Extremities exam: Present: normal inspection, full ROM, normal capillary refill. Absent: tenderness, pedal edema, joint swelling, calf tenderness Back exam: Present: normal inspection Neurological exam: Present: alert, oriented X3, CN II-XII intact Psychiatric exam: Present: normal affect, normal mood Skin exam: Present: warm, dry, intact, normal color. Absent: rash Course Vital Signs 07/27/20 07/27/20 21:35 22:15 Temperature 99.7 F H Pulse Rate 146 H 128 H Respiratory 22 22 Rate Blood Pressure 171/113 O2 Sat by Pulse 92 L 96 Oximetry - Reevaluation(s) Reevaluation #1: 07/27/20 21:42 Medical record is reviewed Reevaluation #2: 07/27/20 22:26 Patient's seizure appears to have abated Reevaluation #3: 07/27/20 22:26 Will admit for neurology to evaluate, patient appears to be noncompliant on medications Medical Decision Making - Medical Decision Making 64 male to the ER for Status epilepticus recurrent seizure. Patient will be admitted for neurology to evaluate - Lab Data Result diagrams: 07/27/20 21:57 07/27/20 21:57 Lab Results 07/27/20 07/27/20 07/27/20 Range/Units 21:43 21:57 21:57 WBC 20.2 H (3.8-10.6) k/uL RBC 4.42 (4.30-5.90) m/uL Hgb 13.7 (13.0-17.5) gm/dL Hct 44.0 (39.0-53.0) % MCV 99.7 (80.0-100.0) fL MCH 31.0 (25.0-35.0) pg MCHC 31.1 (31.0-37.0) g/dL RDW 13.1 (11.5-15.5) % Plt Count 329 (150-450) k/uL Neutrophils % 79 % Lymphocytes % 13 % Monocytes % 6 % Eosinophils % 0 % Basophils % 0 % Neutrophils # 16.0 H (1.3-7.7) k/uL Lymphocytes # 2.6 (1.0-4.8) k/uL Monocytes # 1.3 H (0-1.0) k/uL Eosinophils # 0.1 (0-0.7) k/uL Basophils # 0.1 (0-0.2) k/uL Sodium 135 L (137-145) mmol/L Potassium 4.6 (3.5-5.1) mmol/L Chloride 97 L (98-107) mmol/L Carbon Dioxide 11 L (22-30) mmol/L Anion Gap 27 mmol/L BUN 11 (9-20) mg/dL Creatinine 1.34 H (0.66-1.25) mg/dL Est GFR (CKD-EPI)AfAm 66 (>60 ml/min/1.73 sqM) Est GFR (CKD-EPI)NonAf 57 (>60 ml/min/1.73 sqM) Glucose 207 H (74-99) mg/dL POC Glucose (mg/dL) 183 H (75-99) mg/dL POC Glu [employer] Director ID Elisa Ferris Calcium 9.9 (8.4-10.2) mg/dL Total Bilirubin 0.4 (0.2-1.3) mg/dL AST 32 (17-59) U/L ALT 21 (4-49) U/L Alkaline Phosphatase 70 (38-126) U/L Total Protein 7.6 (6.3-8.2) g/dL Albumin 5.1 H (3.5-5.0) g/dL Salicylates <1.0 mg/dL Acetaminophen <10.0 ug/mL Valproic Acid <10.0 ug/mL Carbamazepine <3.0 ug/mL Serum Alcohol <10 mg/dL - Radiology Data Radiology results: report reviewed (CT brain is negative for acute disease), image reviewed Critical Care Time Critical Care Time: Yes Total Critical Care Time: 31 Disposition Clinical Impression: Epileptic seizure, generalized, Intractable seizure disorder, Status epilepticus Disposition: ADMITTED IP TO THIS [facility] Condition: Fair Is patient prescribed a controlled substance at d/c from ED?: No Referrals: Lucia Kc MD [Primary Care Provider] - 1-2 days
[2020-07-27 21:45] LABS: Glucose,Whole Blood 183 mg/dL (75-99)
[2020-07-27] MEDS ORDERED: LORazepam 2 MG/ML INJ IM STA (21:48)
[2020-07-27 22:05] LABS: Basophils # (A) 0.1 k/uL (0-0.2); Basophils % (A) 0 %; Eosinophils # (A) 0.1 k/uL (0-0.7); Eosinophils % (A) 0 %; HGB 13.7 gm/dL (13.0-17.5); Lymphocytes # (A) 2.6 k/uL (1.0-4.8); Lymphocytes % (A) 13 %; MCHC 31.1 g/dL (31.0-37.0); MCV 99.7 fL (80.0-100.0); Monocytes # (A) 1.3 k/uL (0-1.0); Monocytes % (A) 6 %; Neutrophils % (A) 79 %; Platelet Count 329 k/uL (150-450); RBC 4.42 m/uL (4.30-5.90); RDW 13.1 % (11.5-15.5); WBC 20.2 k/uL (3.8-10.6)
[2020-07-27 22:16] LABS: AST 32 U/L (17-59); Acetaminophen <10.0 ug/mL; African American GFR (CKD) 66 (>60 ml/min/1.73 sqM); Albumin 5.1 g/dL (3.5-5.0); Alcohol <10 mg/dL; Alkaline Phosphatase 70 U/L (38-126); Anion Gap 27 mmol/L; Blood Urea Nitrogen 11 mg/dL (9-20); Calcium 9.9 mg/dL (8.4-10.2); Carbamazepine (Tegretol) <3.0 ug/mL; Carbon Dioxide 11 mmol/L (22-30); Chloride 97 mmol/L (98-107); Glucose 207 mg/dL (74-99); Non-African American GFR(CKD) 57 (>60 ml/min/1.73 sqM); Potassium 4.6 mmol/L (3.5-5.1); Salicylate <1.0 mg/dL; Sodium 135 mmol/L (137-145); Total Bilirubin 0.4 mg/dL (0.2-1.3); Total Protein 7.6 g/dL (6.3-8.2)
[2020-07-27 22:18] LABS: Valproic Acid (Depakene) <10.0 ug/mL
[2020-07-27 22:21] LABS: ALT 21 U/L (4-49)
[2020-07-27] MEDS ORDERED: THIAMINE 100 MG/ML 2 ML VIAL IM STA (22:25)
[2020-07-27] MEDS ORDERED: LORazepam 2 MG/ML INJ IV PRN ×3 (22:25)
[2020-07-27] MEDS: THIAMINE 100 MG TAB PO SCH (22:32)
[2020-07-27] MEDS ORDERED: SODIUM CHLORIDE 0.9% 500 ML 500 ML IV STA (22:36)
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
[2020-07-27] MEDS ORDERED: ACETAMINOPHEN TAB 325 MG TAB PO PRN (23:54)
[2020-07-28] MEDS: THIAMINE 100 MG TAB PO SCH ×2 (06:21→16:53)
[2020-07-28] MEDS ORDERED: levETIRAcetam IV 1,000 MG in SALINE 1 100ML.BAG IVPB SCH (09:00)
[2020-07-28] MEDS ORDERED: traZODone HCL 100 MG TAB PO PRN (16:06)
--- NOTE | 2020-07-28 16:51 | P.CNNES ---
History of Present Illness Consult date: 07/28/20 Requesting physician: Ronen Baig Reason for Consult: Seizure History of Present Illness: Patient is a 64-year-old male, well known to me from previous multiple admissions to the hospital, who has history of seizure disorder, came to the hospital for recurrent seizures with status epilepticus. When he arrived to the ER he was postictal state. Patient does not know anything about his seizures. As per EMS flow sheet when they arrived patient is laying in bed after having one seizure witnessed by family. Patient was post ictal when the EMS arrived. The seizure lasted less than 30 seconds. Family had mentioned that patient was in the hospital on Sunday, 5 days ago, 07/23/2020, for a seizure and a fall. Apparently sometimes during the hospital stay, his medications were lost so patient has been without all medication since 07/25/2020. At discharge. Patient's blood pressure was 165/69, pulse rate 104, temperature 90.8 and blood glucose 179. Patient was brought to the hospital. He was resumed on his seizure medication. He has not had any seizures since then. Patient follows up with Dr. Alston. Patient most recently seen by myself on 03/16/2020 with recurrent seizures. At that time he was started on Zonegran 100 mg daily at night. He was already on Keppra 1500 mg twice a day and Lamictal 300 mg twice a day. Patient's current home medication list includes Keppra 1500 mg twice a day, zonisamide 100 mg daily, Lamictal 300 mg twice a day and Depakote 250 mg 3 times a day. Also on aspirin 81 mg, Effexor XR 225 mg daily, trazodone 100 mg at bedtime and BuSpar 15 mg 3 times a day. I spoke to patient's daughter Pat, who states that Depakote was introduced sometimes after his last admission. I informed her that Depakote and Lamictal have drug drug interaction, and Depakote increases the dose of Lamictal. He is already on fairly high dose of Lamictal to begin with. Patient's daughter states that he is not falling or having any problems with incoordination otherwise. She concurred that patient had a seizure in the bathroom on Sunday, was taken to [facility] and was discharged on Sunday without medication. This probably resulted in this current seizure. Patient's blood test shows WBC 20.2 hemoglobin 13.7 platelets are 329. MCV is elevated 9.7. Sodium 135 potassium 4.6 BUN 11, creatinine 1.34, hepatic panel normal. Depakote level is <10.0 Review of Systems Patient complains of some tiredness. Denies any double vision loss of vision hearing loss courses Landa dysphagia his memory issues. Denies any chest pain shortness of breath. All other review of systems unremarkable. Past Medical History Past Medical History: Chest Pain / Angina, Heart Failure, COPD, GERD/Reflux, Hypertension, Seizure Disorder, Thyroid Disorder Additional Past Medical History / Comment(s): falls,bronchitis,Memory impairment, legally incapacitated, hypothyroid, small hiatal hernia, diverticulosis History of Any Multi-Drug Resistant Organisms: None Reported Past Surgical History: Hernia Repair, Joint Replacement, Orthopedic Surgery Additional Past Surgical History / Comment(s): 08/2017 EGGD/colonoscopy, prior colonoscopy, umbilical hernia repair, L total knee, R partial knee replacement, R lower leg fracture with ORIF (hardware in place), ERCP, bilateral knee arthroscopies. Past Anesthesia/Blood Transfusion Reactions: No Reported Reaction Past Psychological History: Anxiety, Bipolar, Depression, Schizophrenia Additional Psychological History / Comment(s): Pt resides with his daughter, Pat who is his translator and interpreter, legal gaurdian. Pt ambulates without device. He does not drive, daughter takes him to appts. Smoking Status: Current every day smoker Past Alcohol Use History: Occasional Additional Past Alcohol Use History / Comment(s): Pt started smoking in 1971 and is less than a ppd smoker on average. Past Drug Use History: Marijuana Additional Drug Use History / Comment(s): Pt occasionally smokes marijuana. - Past Family History Father Family Medical History: Cancer, Coronary Artery Disease (CAD), Pneumonia Additional Family Medical History / Comment(s): Father had a pacemaker. He of pneumonia. Mother Family Medical History: Coronary Artery Disease (CAD), CVA/TIA Medications and Allergies Home Medications Medication Instructions Recorded Confirmed Type Montelukast [Singulair] 10 mg PO HS 12/30/17 07/27/20 History Famotidine 20 mg PO HS 11/25/19 07/27/20 History levETIRAcetam [Keppra] 1,500 mg PO BID #60 tab 11/27/19 07/27/20 Rx busPIRone HCL 15 mg PO TID 03/14/20 07/27/20 History traZODone HCL 100 mg PO HS PRN 03/14/20 07/27/20 History Zonisamide [Zonegran] 100 mg PO DAILY 30 Days #30 cap 03/16/20 07/27/20 Rx Divalproex [Depakote] 250 mg PO TID 07/23/20 07/27/20 History Metoprolol Tartrate [Lopressor] 25 mg PO AC-BID 07/23/20 07/27/20 History Venlafaxine HCl [Effexor XR] 225 mg PO DAILY 07/23/20 07/27/20 History lamoTRIgine [LaMICtal] 300 mg PO BID 07/23/20 07/27/20 History Aspirin [Adult Low Dose Aspirin EC] 81 mg PO DAILY 07/27/20 07/27/20 History Allergies Allergy/AdvReac Type Severity Reaction Status Date / Time No Known Allergies Allergy Verified 07/27/20 23:53 Physical Examination - Vital Signs Vital Signs: Vital Signs Temp Pulse Pulse Resp BP BP Pulse Ox 07/28/20 11:34 71 16 136/75 96 07/28/20 08:00 98.5 F 85 18 138/68 96 07/28/20 07:56 96 07/28/20 04:00 99.0 F 80 18 130/68 96 07/28/20 00:21 99.9 F H 82 20 152/73 96 07/28/20 00:19 99.9 F H 82 18 152/73 96 07/27/20 23:43 100 F H 97 22 130/87 95 07/27/20 22:50 99.6 F 118 H 20 155/83 97 07/27/20 22:15 128 H 22 96 07/27/20 21:35 99.7 F H 146 H 22 171/113 92 L Intake and Output 07/27/20 07/28/20 07/28/20 22:59 06:59 14:59 Intake Total 100 Output Total 2225 900 Balance -2225 -800 Intake: Oral 100 Output: Urine 2225 900 Other: Voiding Method Urinal Weight 90.718 kg 76.4 kg On examination patient is a late middle aged male, in no acute distress. He is alert and awake. Patient states is April 2020 and he thinks Mr. Alvarez is the current president although he states he does not know. He knows that he is in [facility] in [place]. Speech and language functions are normal. No aphasia or dysarthria. On cranial nerve examination pupils are round and reactive to light, visual villarreal are full on confrontation, extraocular muscles are intact with no nystagmus. Face is symmetric, tongue p rotrudes to the midline. Palatal elevation and sensation normal muscle strength is normal in the arms and legs reflexes symmetric and plantars are downgoing. Sensory touch is equal. No ataxia for [id number] testing. Tone and bulk of muscles normal. Gait deferred. No carotid bruit, S1 and S2 audible. Peripheral pulses present. No edema. Results - Laboratory Findings CBC and BMP: 07/27/20 21:57 07/27/20 21:57 Abnormal Lab Findings: Abnormal Labs 07/27/20 07/27/20 07/27/20 21:43 21:57 21:57 WBC 20.2 H Neutrophils # 16.0 H Monocytes # 1.3 H Sodium 135 L Chloride 97 L Carbon Dioxide 11 L Creatinine 1.34 H Glucose 207 H POC Glucose (mg/dL) 183 H Albumin 5.1 H Assessment and Plan Assessment: * Breakthrough seizure, likely due to not taking medications since 07/25/2020. Patient was recently admitted to [facility], but the medications were lost in the hospital and he was without seizure medication since Sunday. * Seizure disorder Plan: * Patient will resume all his seizure medications including Keppra 1500 mg twice a day, Lamictal 300 mg twice a day and Zonegran 100 mg daily and Depakote 250 mg 3 times a day. Patient's daughter was informed that Depakote and Lamictal have drug interactions and Depakote increases the level of Lamictal. She was informed that if patient starts having problems with incoordination, balance issues and double vision, then may have to decrease the dose of Lamictal. He could have levels of Keppra, Lamictal checked in 2-4 weeks. He was recommended to follow-up with the neurologist as outpatient. * Neurologically clear for discharge.
[2020-07-28] MEDS: busPIRone HCl 5 MG TAB PO SCH ×2 (16:53→20:47)
[2020-07-28] MEDS: METOPROLOL TARTRATE 25 MG TAB PO SCH (16:53)
[2020-07-28 16:59] LABS: Basophils % (A) 0 %; Eosinophils # (A) 0.2 k/uL (0-0.7); Eosinophils % (A) 2 %; HCT 38.2 % (39.0-53.0); HGB 13.2 gm/dL (13.0-17.5); Lymphocytes # (A) 1.5 k/uL (1.0-4.8); Lymphocytes % (A) 15 %; MCH 32.3 pg (25.0-35.0); MCHC 34.7 g/dL (31.0-37.0); Mean Platelet Volume 7.6; Monocytes % (A) 9 %; Neutrophils # (A) 7.5 k/uL (1.3-7.7); Neutrophils % (A) 73 %; Platelet Count 202 k/uL (150-450); RDW 13.2 % (11.5-15.5); WBC 10.3 k/uL (3.8-10.6)
[2020-07-28 17:06] LABS: MCV 93.3 fL (80.0-100.0)
[2020-07-28 17:08] LABS: African American GFR (CKD) >90 (>60 ml/min/1.73 sqM); Anion Gap 9 mmol/L; Blood Urea Nitrogen 10 mg/dL (9-20); Calcium 8.3 mg/dL (8.4-10.2); Carbon Dioxide 21 mmol/L (22-30); Chloride 106 mmol/L (98-107); Glucose 105 mg/dL (74-99); Non-African American GFR(CKD) >90 (>60 ml/min/1.73 sqM); Potassium 4.2 mmol/L (3.5-5.1); Sodium 136 mmol/L (137-145)
[2020-07-28] MEDS: VENLAFAXINE HCL ER 75 MG CAP PO SCH (17:16)
[2020-07-28] MEDS: ZONISAMIDE 100 MG CAP PO SCH (17:16)
[2020-07-28] MEDS: lamoTRIgine 100 MG TAB PO SCH (20:47)
[2020-07-28] MEDS: FAMOTIDINE 20 MG TAB PO SCH (20:47)
[2020-07-28] MEDS: DIVALPROEX 250 MG TABLET.DR PO SCH (20:47)
[2020-07-28] MEDS: MONTELUKAST 10 MG TAB PO SCH (20:47)
--- NOTE | 2020-07-28 21:19 | P.HPIM ---
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 Patient did have generalized currently seizure and was noted by his family. Patient does not know what happened and could not provide any history at this time. EMS was called and patient was brought to the hospital patient was in postictal state and he came to ER. Patient has multiple recent visits for recurrent seizures. Patient was also seen at [facility]. Currently on multiple antiepileptic medications including Lamictal, Depakote, Keppra and Zonegran. Laboratory data showed WBC 20.2, hemoglobin 13.7, platelets 329 Sodium 135, potassium 4.6, chloride of 97 and bicarb is 11 BUN 11 and creatinine 1.34 Albumin 5.1 Liver numbers are not elevated Valproic acid less than 10 and carbamazepine less than 3 alcohol less than 10 CT head showed right frontal scalp hematoma. This appears to be new compared to recent exam. Review of Systems Constitutional: Patient denies any fever or chills . No generalized weakness or weight loss. Abdomen: Patient denied nausea vomiting and diarrhea and abdominal pain. Cardiovascular: Patient denies any chest pain or short of breath no palpitations. Respiratory: patient denied any cough is from production. No shortness of breath Neurologic: Patient denied any numbness or tingling headache. Musculoskeletal: Patient denies any complaints of joint swelling or deformity. Skin: Negative Psychiatric: Negative Endocrine: No heat or cold intolerance. No recent weight gain. Genitourinary: No dysuria or hematuria. All other 14 point ROS negative except the above Past Medical History Past Medical History: Chest Pain / Angina, Heart Failure, COPD, GERD/Reflux, Hypertension, Seizure Disorder, Thyroid Disorder Additional Past Medical History / Comment(s): falls,bronchitis,Memory impairment, legally incapacitated, hypothyroid, small hiatal hernia, diverticulosis History of Any Multi-Drug Resistant Organisms: None Reported Past Surgical History: Hernia Repair, Joint Replacement, Orthopedic Surgery Additional Past Surgical History / Comment(s): 08/2017 EGGD/colonoscopy, prior colonoscopy, umbilical hernia repair, L total knee, R partial knee replacement, R lower leg fracture with ORIF (hardware in place), ERCP, bilateral knee arthroscopies. Past Anesthesia/Blood Transfusion Reactions: No Reported Reaction Past Psychological History: Anxiety, Bipolar, Depression, Schizophrenia Additional Psychological History / Comment(s): Pt resides with his daughter, Pat who is his employee services manager, legal gaurdian. Pt ambulates without device. He does not drive, daughter takes him to appts. Smoking Status: Current every day smoker Past Alcohol Use History: Occasional Additional Past Alcohol Use History / Comment(s): Pt started smoking in 1971 and is less than a ppd smoker on average. Past Drug Use History: Marijuana Additional Drug Use History / Comment(s): Pt occasionally smokes marijuana. - Past Family History Father Family Medical History: Cancer, Coronary Artery Disease (CAD), Pneumonia Additional Family Medical History / Comment(s): Father had a pacemaker. He of pneumonia. Mother Family Medical History: Coronary Artery Disease (CAD), CVA/TIA Medications and Allergies Home Medications Medication Instructions Recorded Confirmed Type Montelukast [Singulair] 10 mg PO HS 12/30/17 07/27/20 History Famotidine 20 mg PO HS 11/25/19 07/27/20 History levETIRAcetam [Keppra] 1,500 mg PO BID #60 tab 11/27/19 07/27/20 Rx busPIRone HCL 15 mg PO TID 03/14/20 07/27/20 History traZODone HCL 100 mg PO HS PRN 03/14/20 07/27/20 History Zonisamide [Zonegran] 100 mg PO DAILY 30 Days #30 cap 03/16/20 07/27/20 Rx Divalproex [Depakote] 250 mg PO TID 07/23/20 07/27/20 History Metoprolol Tartrate [Lopressor] 25 mg PO AC-BID 07/23/20 07/27/20 History Venlafaxine HCl [Effexor XR] 225 mg PO DAILY 07/23/20 07/27/20 History lamoTRIgine [LaMICtal] 300 mg PO BID 07/23/20 07/27/20 History Aspirin [Adult Low Dose Aspirin EC] 81 mg PO DAILY 07/27/20 07/27/20 History Allergies Allergy/AdvReac Type Severity Reaction Status Date / Time No Known Allergies Allergy Verified 07/27/20 23:53 Physical Exam Vitals: Vital Signs Temp Pulse Pulse Resp BP BP Pulse Ox 07/28/20 11:34 71 16 136/75 96 07/28/20 08:00 98.5 F 85 18 138/68 96 07/28/20 07:56 96 07/28/20 04:00 99.0 F 80 18 130/68 96 07/28/20 00:21 99.9 F H 82 20 152/73 96 07/28/20 00:19 99.9 F H 82 18 152/73 96 07/27/20 23:43 100 F H 97 22 130/87 95 07/27/20 22:50 99.6 F 118 H 20 155/83 97 07/27/20 22:15 128 H 22 96 07/27/20 21:35 99.7 F H 146 H 22 171/113 92 L Intake and Output 07/27/20 07/28/20 07/28/20 22:59 06:59 14:59 Intake Total 220 Output Total 2225 1500 Balance -2225 -1280 Intake: Oral 220 Output: Urine 2225 1500 Other: Voiding Method Urinal Weight 90.718 kg 76.4 kg PHYSICAL EXAMINATION: Patient is lying in the bed comfortably, no acute distress, awake alert and oriented.. HEENT: Normocephalic. Neck is supple. Pupils reactive. Nostrils clear. Oral cavity is moist. Ears reveal no drainage. Neck reveals no JVD, carotid bruits, or thyromegaly. CHEST EXAMINATION: Trachea is central. Symmetrical expansion. Lung villarreal clear to auscultation and percussion. CARDIAC: Normal S1, S2 with no gallops. No murmurs ABDOMEN: Soft. Bowel sounds normal. No organomegaly. No abdominal bruits. Extremities: reveal no edema. No clubbing or cyanosis Neurologically awake, alert, oriented x3 with well-coordinated movements. No focal deficits noted Skin: No rash or skin lesions. Psychiatric: Coperative. Nonsuicidal Musculoskeletal: No joint swelling or deformity. Normal range of motion. Results CBC & Chem 7: 07/28/20 16:42 07/28/20 16:42 Labs: Abnormal Lab Results - Last 24 Hours (Table) 07/27/20 07/27/20 07/27/20 Range/Units 21:43 21:57 21:57 WBC 20.2 H (3.8-10.6) k/uL Neutrophils # 16.0 H (1.3-7.7) k/uL Monocytes # 1.3 H (0-1.0) k/uL Sodium 135 L (137-145) mmol/L Chloride 97 L (98-107) mmol/L Carbon Dioxide 11 L (22-30) mmol/L Creatinine 1.34 H (0.66-1.25) mg/dL Glucose 207 H (74-99) mg/dL POC Glucose (mg/dL) 183 H (75-99) mg/dL Albumin 5.1 H (3.5-5.0) g/dL Thrombosis Risk Factor Assmnt - DVT/VTE Prophylaxis DVT/VTE Prophylaxis: Pharmacologic Prophylaxis ordered - Choose All That Apply Each Risk Factor Represents 2 Points: Age 61-74 years Thrombosis Risk Factor Assessment Total Risk Factor Score: 2 Thrombosis Risk Factor Assessment Level: Low Risk Assessment and Plan Assessment: Acute breakthrough seizures due to noncompliance with medications. Acute metabolic acidosis Leukocytosis likely reactive. Improved Frontal scalp hematoma Seizure disorder with multiple admissions for seizures. Noncompliance with medications. COPD not in exacerbation Bipolar disorder anxiety/depression/schizophrenia Hypertension GERD Memory impairment and legally incapacitated History of diverticulosis Marijuana use Previous history of smoking DVT prophylaxis with heparin subcu Plan: Patient was started on Keppra thousand milligrams twice daily in the ER. Basilio wan is currently more awake and oriented. Started back on his home regimen. Neurology has seen the patient. Recommends follow-up as an outpatient. Continue seizure precautions and fall precautions. Anticipate discharge the next 24 hours. Time with Patient: Greater than 30
[2020-07-28] MEDS ORDERED: busPIRone HCl 5 MG TAB PO SCH (22:00)
[2020-07-28] MEDS ORDERED: DIVALPROEX 250 MG TABLET.DR PO SCH (22:00)
[2020-07-29] MEDS ORDERED: HALOPERIDOL LACTATE 5 MG/ML 1 ML VIAL IM STA (00:38)
--- NOTE | 2020-07-29 07:27 | CT ---
EXAMINATION TYPE: CT brain wo con DATE OF EXAM: 07/29/2020 HISTORY: Fall, hit right supraorbital area with headache. CT DLP: 1044.4 mGycm. Automated Exposure Control for Dose Reduction was Utilized. TECHNIQUE: CT scan of the head is performed without contrast. COMPARISON CT brain 2 days ago.. FINDINGS: There is no acute intracranial hemorrhage or midline shift identified. There is diffuse v entricular and sulcal prominence greatest over the bilateral high frontal and parietal lobes. Vitale-wh ite matter differentiation fairly well maintained. The calvarium is intact. The globes are intact and the visualized sinuses are clear. IMPRESSION: No acute intracranial hemorrhage or midline shift. Interval resolution of small to moder ate size acute right frontal scalp hematoma noted.
[2020-07-29] MEDS: THIAMINE 100 MG TAB PO SCH ×2 (08:11→16:38)
[2020-07-29] MEDS: METOPROLOL TARTRATE 25 MG TAB PO SCH ×2 (08:11→16:38)
[2020-07-29] MEDS: VENLAFAXINE HCL ER 75 MG CAP PO SCH (08:12)
[2020-07-29] MEDS: ZONISAMIDE 100 MG CAP PO SCH (08:12)
[2020-07-29] MEDS: lamoTRIgine 100 MG TAB PO SCH ×2 (08:13→20:00)
[2020-07-29] MEDS: DIVALPROEX 250 MG TABLET.DR PO SCH ×3 (08:13→21:14)
[2020-07-29] MEDS: busPIRone HCl 5 MG TAB PO SCH ×3 (08:14→21:14)
[2020-07-29] MEDS ORDERED: VENLAFAXINE HCL ER 75 MG CAP PO SCH (09:00)
[2020-07-29] MEDS ORDERED: ZONISAMIDE 100 MG CAP PO SCH (09:00)
[2020-07-29] MEDS ORDERED: NON FORMULARY DRUG (Aspirin [Adult Low Dose Aspirin Ec] 81 MG Tablet.Dr) PO SCH (09:00)
--- NOTE | 2020-07-29 15:21 | P.CN ---
Psychiatric Consult - . Consult date: 07/29/20 Consult:: IDENTIFYING DATA: This patient is a 64-year-old male with significant history of seizure disorder who presented to the hospital for recurrent seizures with status epilepticus. HISTORY OF PRESENT ILLNESS: The patient presented to the hospital on 07/27/2020 in a postictal state. Patient has been noted to have multiple seizures prior to this admission. Psychiatry has been called and consulted for a history of bipolar/schizophrenia. Patient reports that he is feeling "okay." He is not reporting any significant symptoms of depression at this time. The patient denies any suicidal or homicidal ideations, intent or plan. There is some concern that patient has been experiencing more of a manic episode. Patient has been impulsive while on the hospital floor. Patient even tripped and fell which resulted in a cut over his right eye. He has been intrusive with staff and has been noted to not be sleeping. He is not reporting any grandiosity, racing thoughts, or pressured speech. Prior to this admission, he was on multiple psychiatric and neurologic medications including Depakote, Lamictal, Effexor, BuSpar, and trazodone. Patient was recently hospitalized at [facility] after expressing a seizure on Sunday but was discharge on Sunday without any medication. This is suspected to be the reason why he has had a seizure. Despite being on Depakote and Lamictal, patient has been noted to have low Depakote levels during this admission. Currently he denies any auditory, visual hallucinations and denies any paranoia or delusions. Patients admits to using multiple substances in the past. He reports a significant history of cocaine, acid, methamphetamine, opiate, and mescaline use when he was working with the [employer] in [place] 4-5 years ago. He reports that during this time he experienced significant psychiatric symptoms including auditory hallucinations, paranoia, and suicidal thoughts. Currently he seems most distressed about recurring intrusive thoughts of "animals messing with my hair." He is uncertain about what medications he has been prescribed to manage his psychiatric illnesses identifies his having been diagnosed with "manic depressive disorder and bipolar disorder." Collateral information was provided by the patient's daughter Pat: She reports that the patient has a significant psychiatric history including diagnoses of traumatic brain injury, multiple personalities, bipolar disorder, and schizophrenia. She states that at baseline, the patient is pleasant and bright but may be irritable at times. She does report that the patient was to sleep every night and that being awake for days is not normal for him. She reports that he has been on multiple medications in the past and follows with Dr. Asencio from [facility] in the outpatient setting. She suspects that his mood has been unstable due to the abrupt discontinuation of his medication since last Sunday. PAST PSYCHIATRIC HISTORY: Patient has a a history of bipolar disorder. Patient's daughter reports that the patient has been on Seroquel in the past which caused him to have "angry multiple personalities." Patient currently follows with Dr. Asnecio from [facility]. PAST MEDICAL HISTORY: Angina, heart failure, COPD, GERD, hypertension, seizure disorder, thyroid disorder. ALLERGIES: as per EMR. CHEMICAL DEPENDENCY HISTORY: as per HPI. FAMILY PSYCHIATRIC/SUBSTANCE USE HISTORY: Mother - Bipolar, depression, anxiety Daughter - depression/anxiety SOCIAL HISTORY: Patient was born and raised in [place]. He has worked in a [employer] in [place]. MENTAL STATUS EXAM: General Appearance: Patient appears to be stated age is alert, pleasant, and cooperative. Patient appears to have fair hygiene and grooming wearing hospital gown with fair eye contact. He has noticeable abrasion over his right eye. Behavior: Psychomotor agitation is noted. Patient is restless and constantly moving. Speech: Patient's speech is fluent, rapid, high in volume, but is interruptible. Mood/Affect: Patient reports their mood is "doing okay", affect is expansive, irritable, labile Suicidality/Homicidality: Patient denies having any suicidal or homicidal ideation intent or plan. Perceptions: Patient denies any visual hallucinations and denies any auditory hallucinations Though content/process: There is no evidence of any delusional thought content and thought process is linear and goal-directed. Memory and concentration: AOX3, grossly intact for the purposes of this session. Judgment and insight: poor IMPRESSIONS: Bipolar disorder, unspecified - likely secondary to abrupt discontinuation of his antiseizure/mood stabilization medications Rule out schizoaffective disorder Rule out polysubstance use disorder PLAN: -At this time patient DOES meet criteria for inpatient psychiatric admission. Patient appears to be increasingly manic and would benefit from inpatient psychiatric admission to safely address his unstable mood. -Delirium precautions recommended with patient including - avoiding use of narcotics and POOLROOM TABLE ATTENDANT sedatives, limit anticholinergic medications when possible, frequent re-orientation, minimize use of restraints, open window shades during the day and close them at night -Daughter is agreeable that the patient would require inpatient psychiatric hospitalization to stabilize mood prior to discharge. -Would recommend the following medication changes/additions: Continue Depakote 250 mg by mouth 3 times a day Continue Lamictal 200 mg by mouth twice a day Continue Effexor XR 225 mg by mouth daily Continue trazodone 100 mg by mouth at bedtime when necessary for insomnia -Continue 1:1 sitter for safety -Cannot leave AMA at this time. Patient will need a petition and certification if attempting to leave AMA. -Will continue to follow along -When medically stable, patient is eligible for transfer to a psych bed when available. 07/29/20 15:03
--- NOTE | 2020-07-29 16:21 | P.GSCN ---
History of Present Illness Consult date: 07/29/20 History of present illness: CHIEF COMPLAINT: Seizure HISTORY OF PRESENT ILLNESS: This is a 64-year-old male with a known history of bipolar, schizophrenia and seizure disorder, hypertension, COPD, hypothyroidism, memory impairment and closed head injury. Patient presented to the ER after having a seizure. He was in a postictal state. He had been noncompliant with his medications. He had a CTs scan showing a right frontal scalp hematoma and a repeat computed tomography scan showing improvement in the hematoma. Apparently patient fell this morning and hit his head causing a laceration along the right eyebrow. Surgery consult was placed for possible sutures to the right eyebrow. Patient is afebrile. PAST MEDICAL HISTORY: See list. PAST SURGICAL HISTORY: See list. MEDICATIONS: See list. ALLERGIES: See list. SOCIAL HISTORY: No illicit drug use. REVIEW OF SYSTEMS: CONSTITUTIONAL: Denies fever or chills. HEENT: Denies blurred vision, vision changes, or eye pain. Denies hemoptysis ENDOCRINE: Denies heat or cold intolerance. CARDIOVASCULAR: Denies chest pain or pressure. RESPIRATORY: No shortness of breath. GASTROINTESTINAL: Denies abdominal pain. Denies nausea or vomiting. NEURO: Denies history of seizures. PSYCH: No depression or suicidal ideation HEMATOLOGIC: Denies bleeding disorders. LYMPHATIC: The patient denies any lumps and bumps around the neck. GENITOURINARY: Denies any blood in urine or increased urinary frequency. MUSCULOSKELETAL: Denies myalgias. Denies joint swelling. Denies decreased range of motion beyond patients baseline. SKIN: Denies pruitis. Denies rash. PHYSICAL EXAM: VITAL SIGNS: Reviewed GENERAL: Well-developed in no acute distress. HEENT: No sclera icterus. Extraocular movements grossly intact. Moist buccal mucosa. Laceration to the right eyebrow with bleeding noted. Head is atraumatic, normocephalic. Hears conversational speech. No nasal drainage. NECK: Supple without lymphadenopathy. CHEST: Non-labored respirations and equal bilateral excursions. CARDIOVASCULAR: Palpable 2+ radial pulses. ABDOMEN: Soft. Nondistended. Nontender MUSCULOSKELETAL: No clubbing or cyanosis. NEUROLOGIC: No focal or lateralizing signs. Cranial nerves II through XII grossly intact. SKIN: Well perfused. Good skin turgor. LABORATORY DATA: WBC 20.2 down to 10.3 hemoglobin 13.2 IMAGING: Computed tomography scan of the brain showing a right frontal scalp hematoma. No acute intracranial abnormality. Repeat computed tomography scan of brain shows no acute intracranial hemorrhage or midline shift. Interval resolution of small to moderate acute right frontal scalp hematoma noted ASSESSMENT: 1. Right eyebrow laceration after a fall 2. Seizure disorder 3. Schizophrenia and bipolar 4. Prior history of closed head injury and memory impairment 5. Hypertension PLAN: -We will apply bacitracin to right eye laceration and cover the area with gauze -Patient does not require sutures Physician Organ Builder note has been reviewed by physician. Signing provider agrees with the documented findings, assessment, and plan of care. Past Medical History Past Medical History: Chest Pain / Angina, Heart Failure, COPD, GERD/Reflux, Hypertension, Seizure Disorder, Thyroid Disorder Additional Past Medical History / Comment(s): falls,bronchitis,Memory impairment, legally incapacitated, hypothyroid, small hiatal hernia, divertic ulosis History of Any Multi-Drug Resistant Organisms: None Reported Past Surgical History: Hernia Repair, Joint Replacement, Orthopedic Surgery Additional Past Surgical History / Comment(s): 08/2017 EGGD/colonoscopy, prior colonoscopy, umbilical hernia repair, L total knee, R partial knee replacement, R lower leg fracture with ORIF (hardware in place), ERCP, bilateral knee arthroscopies. Past Anesthesia/Blood Transfusion Reactions: No Reported Reaction Past Psychological History: Anxiety, Bipolar, Depression, Schizophrenia Additional Psychological History / Comment(s): Pt resides with his daughter, Pat who is his vice president of talent management, legal gaurdian. Pt ambulates without device. He does not drive, daughter takes him to appts. Smoking Status: Current every day smoker Past Alcohol Use History: Occasional Additional Past Alcohol Use History / Comment(s): Pt started smoking in 1971 and is less than a ppd smoker on average. Past Drug Use History: Marijuana Additional Drug Use History / Comment(s): Pt occasionally smokes marijuana. - Past Family History Father Family Medical History: Cancer, Coronary Artery Disease (CAD), Pneumonia Additional Family Medical History / Comment(s): Father had a pacemaker. He of pneumonia. Mother Family Medical History: Coronary Artery Disease (CAD), CVA/TIA Medications and Allergies Home Medications Medication Instructions Recorded Confirmed Type Montelukast [Singulair] 10 mg PO HS 12/30/17 07/27/20 History Famotidine 20 mg PO HS 11/25/19 07/27/20 History levETIRAcetam [Keppra] 1,500 mg PO BID #60 tab 11/27/19 07/27/20 Rx busPIRone HCL 15 mg PO TID 03/14/20 07/27/20 History traZODone HCL 100 mg PO HS PRN 03/14/20 07/27/20 History Zonisamide [Zonegran] 100 mg PO DAILY 30 Days #30 cap 03/16/20 07/27/20 Rx Divalproex [Depakote] 250 mg PO TID 07/23/20 07/27/20 History Metoprolol Tartrate [Lopressor] 25 mg PO AC-BID 07/23/20 07/27/20 History Venlafaxine HCl [Effexor XR] 225 mg PO DAILY 07/23/20 07/27/20 History lamoTRIgine [LaMICtal] 300 mg PO BID 07/23/20 07/27/20 History Aspirin [Adult Low Dose Aspirin EC] 81 mg PO DAILY 07/27/20 07/27/20 History Thiamine [Vitamin B-1] 100 mg PO BID-W/MEALS #30 tab 07/29/20 Rx Allergies Allergy/AdvReac Type Severity Reaction Status Date / Time No Known Allergies Allergy Verified 07/27/20 23:53 Surgical - Exam Vital Signs Temp Pulse Resp BP Pulse Ox 99.7 F H 146 H 22 171/113 92 L 07/27/20 21:35 07/27/20 21:35 07/27/20 21:35 07/27/20 21:35 07/27/20 21:35 Results - Labs 07/28/20 16:42 07/28/20 16:42 Abnormal Lab Results - Last 24 Hours (Table) 07/28/20 07/28/20 Range/Units 16:42 16:42 RBC 4.10 L (4.30-5.90) m/uL Hct 38.2 L (39.0-53.0) % Sodium 136 L (137-145) mmol/L Carbon Dioxide 21 L (22-30) mmol/L Glucose 105 H (74-99) mg/dL Calcium 8.3 L (8.4-10.2) mg/dL Diabetes panel 07/28/20 Range/Units 16:42 Sodium 136 L (137-145) mmol/L Potassium 4.2 (3.5-5.1) mmol/L Chloride 106 (98-107) mmol/L Carbon Dioxide 21 L (22-30) mmol/L BUN 10 (9-20) mg/dL Creatinine 0.79 (0.66-1.25) mg/dL Glucose 105 H (74-99) mg/dL Calcium 8.3 L (8.4-10.2) mg/dL Calcium panel 07/28/20 Range/Units 16:42 Calcium 8.3 L (8.4-10.2) mg/dL Pituitary panel 07/28/20 Range/Units 16:42 Sodium 136 L (137-145) mmol/L Potassium 4.2 (3.5-5.1) mmol/L Chloride 106 (98-107) mmol/L Carbon Dioxide 21 L (22-30) mmol/L BUN 10 (9-20) mg/dL Creatinine 0.79 (0.66-1.25) mg/dL Glucose 105 H (74-99) mg/dL Calcium 8.3 L (8.4-10.2) mg/dL Adrenal panel 07/28/20 Range/Units 16:42 Sodium 136 L (137-145) mmol/L Potassium 4.2 (3.5-5.1) mmol/L Chloride 106 (98-107) mmol/L Carbon Dioxide 21 L (22-30) mmol/L BUN 10 (9-20) mg/dL Creatinine 0.79 (0.66-1.25) mg/dL Glucose 105 H (74-99) mg/dL Calcium 8.3 L (8.4-10.2) mg/dL
[2020-07-29] MEDS: LOSARTAN 50 MG TAB PO SCH (16:38)
[2020-07-29] MEDS: FAMOTIDINE 20 MG TAB PO SCH (20:00)
[2020-07-29] MEDS: MONTELUKAST 10 MG TAB PO SCH (20:00)
[2020-07-29] MEDS: BACITRACIN OINT 1 EACH PACKET TOPICAL SCH (20:00)
[2020-07-30 04:26] VITALS: TEMP 98.2
[2020-07-30] MEDS: METOPROLOL TARTRATE 25 MG TAB PO SCH (06:43)
[2020-07-30] MEDS: THIAMINE 100 MG TAB PO SCH ×2 (06:43→16:11)
[2020-07-30] MEDS: busPIRone HCl 5 MG TAB PO SCH ×2 (07:57→16:11)
[2020-07-30] MEDS: LOSARTAN 50 MG TAB PO SCH (07:58)
[2020-07-30] MEDS: DIVALPROEX 250 MG TABLET.DR PO SCH ×2 (07:58→16:11)
[2020-07-30] MEDS: VENLAFAXINE HCL ER 75 MG CAP PO SCH (07:58)
[2020-07-30] MEDS: lamoTRIgine 100 MG TAB PO SCH (07:58)
[2020-07-30] MEDS: BACITRACIN OINT 1 EACH PACKET TOPICAL SCH (07:59)
[2020-07-30 08:50] LABS: Basophils # (A) 0.1 k/uL (0-0.2); Basophils % (A) 1 %; Eosinophils # (A) 0.2 k/uL (0-0.7); Eosinophils % (A) 3 %; HCT 38.2 % (39.0-53.0); HGB 12.7 gm/dL (13.0-17.5); Lymphocytes # (A) 1.3 k/uL (1.0-4.8); Lymphocytes % (A) 16 %; MCH 31.1 pg (25.0-35.0); MCHC 33.1 g/dL (31.0-37.0); MCV 93.9 fL (80.0-100.0); Mean Platelet Volume 7.1; Monocytes # (A) 0.6 k/uL (0-1.0); Monocytes % (A) 7 %; Neutrophils # (A) 6.2 k/uL (1.3-7.7); Neutrophils % (A) 73 %; Platelet Count 270 k/uL (150-450); RBC 4.06 m/uL (4.30-5.90); RDW 12.8 % (11.5-15.5); WBC 8.5 k/uL (3.8-10.6)
[2020-07-30 09:00] LABS: African American GFR (CKD) >90 (>60 ml/min/1.73 sqM); Anion Gap 7 mmol/L; Blood Urea Nitrogen 13 mg/dL (9-20); Calcium 8.6 mg/dL (8.4-10.2); Carbon Dioxide 27 mmol/L (22-30); Chloride 99 mmol/L (98-107); Glucose 70 mg/dL (74-99); Non-African American GFR(CKD) >90 (>60 ml/min/1.73 sqM); Potassium 4.4 mmol/L (3.5-5.1); Sodium 133 mmol/L (137-145)
[2020-07-30] MEDS: ZONISAMIDE 100 MG CAP PO SCH (10:20)
--- NOTE | 2020-07-30 10:33 | P.PN ---
Subjective Progress Note Date: 07/29/20 Patient was seen for a follow-up. Patient last night was noted to be severely anxious, pacing around in room. He was instructed to stay in bed or chair related to fall risk and seizure precautions. Patient continuously getting out of bed without assistance. Redirection was unsuccessful. Patient became combative with staff, yelling and cursing. Patient placed on CIWA protocol. Patient was placed on 4 points restraints. Restraints were removed at 6:15 AM. At 6:30 loud crash heard from patient's room. Patient was found face down on floor with pulling of blood from around his head. Patient had deep laceration over the eyebrow. Patient apparently had tried to climb out of bed through the side rails, and fell face forward. Staff heard a loud crash, went in and he was on the floor. Patient underwent computed tomography scan of the head, which revealed no acute intracranial process. It showed right frontal scalp hematoma. At present patient feels fine. He is walking around. Denies headache. No seizures reported. Objective - Vital Signs Vital signs: Vital Signs Temp 97.9 F 07/29/20 00:01 Pulse 70 07/29/20 14:57 Resp 16 07/29/20 14:57 BP 167/100 07/29/20 17:56 Pulse Ox 98 07/29/20 14:57 Intake & Output 07/28/20 07/29/20 07/29/20 18:59 06:59 18:59 Intake Total 220 1400 1210 Output Total 9776 280 0993 Balance -1480 500 -90 Weight 76.9 kg Intake: Oral 220 1400 1210 Output: Urine 5548 424 7955 Other: Voiding Method Urinal # Voids 1 - Exam Patient's mental status is stable. Speech and language functions and normal muscle strength is normal. Cranial nerves are normal. He has laceration of the right eyebrow. - Labs CBC & Chem 7: 07/30/20 08:32 07/30/20 08:32 Assessment and Plan Assessment: * Breakthrough seizure, likely due to not taking medications since 07/25/2020. Patient was recently admitted to [facility], but the medications were lost in the hospital and he was without seizure medication since Sunday. * Seizure disorder * Status post fall while climbing out of the bed. * Bipolar disorder, rule out schizoaffective disorder. Plan: * Patient will resume all his seizure medications including Keppra 1500 mg twice a day. We will decrease Lamictal to 200 mg twice a day because of interaction with Depakote. Continue Zonegran 100 mg daily and Depakote 250 mg 3 times a day. Patient's daughter was informed that Depakote and Lamictal have drug interactions and Depakote increases the level of Lamictal. She was informed that if patient starts having problems with incoordination, balance issues and double vision, then may have to decrease the dose of Lamictal. Suggest checking levels of Keppra, Lamictal checked in 2-4 weeks. He was recommended to follow-up with the neurologist as outpatient.
--- NOTE | 2020-07-30 12:06 | P.PN ---
Subjective Progress Note Date: 07/30/20 CHIEF COMPLAINT: Seizure HISTORY OF PRESENT ILLNESS: We are following patient in regards to her right ey ebrow laceration after a fall. He denies any pain. He is lying in bed comfortably. He is afebrile. White count 8.5 hemoglobin 12.7 PHYSICAL EXAM: VITAL SIGNS: Reviewed GENERAL: Well-developed in no acute distress. HEENT: No sclera icterus. Extraocular movements grossly intact. Moist buccal mucosa. Right eyebrow laceration is now scabbed. No active bleeding. He does have bruising and swelling around the eye Head is atraumatic, normocephalic. Hears conversational speech. No nasal drain age. NECK: Supple without lymphadenopathy. CHEST: Non-labored respirations and equal bilateral excursions. CARDIOVASCULAR: Palpable 2+ radial pulses. ABDOMEN: Soft. Nondistended. Nontender. MUSCULOSKELETAL: No clubbing or cyanosis. NEUROLOGIC: No focal or lateralizing signs. Cranial nerves II through XII grossly intact. SKIN: Well perfused. Good skin turgor. ASSESSMENT: 1. Right eyebrow laceration after a fall 2. Seizure disorder 3. Schizophrenia and bipolar 4. Prior history of closed head injury and memory impairment 5. Hypertension PLAN: -We will apply bacitracin to right eye laceration and cover the area with gauze -Patient does not require sutures -Okay to apply ice to the area -Surgery will sign off. Please call for any other questions or concerns. Physician Percussion Tuner note has been reviewed by physician. Signing provider agrees with the documented findings, assessment, and plan of care. Objective - Vital Signs Vital signs: Vital Signs Temp 98.2 F 07/30/20 04:00 Pulse 66 07/30/20 10:25 Resp 16 07/30/20 10:25 BP 152/83 07/30/20 10:25 Pulse Ox 98 07/30/20 10:25 Intake & Output 07/29/20 07/30/20 07/30/20 18:59 06:59 18:59 Intake Total 1210 540 240 Output Total 1300 600 Balance -90 -60 240 Weight 76.4 kg Intake: Oral 1210 540 240 Output: Urine 1300 600 Other: Voiding Method Urinal - Labs CBC & Chem 7: 07/30/20 08:32 07/30/20 08:32 Labs: Abnormal Lab Results - Last 24 Hours (Table) 07/30/20 07/30/20 Range/Units 08:32 08:32 RBC 4.06 L (4.30-5.90) m/uL Hgb 12.7 L (13.0-17.5) gm/dL Hct 38.2 L (39.0-53.0) % Sodium 133 L (137-145) mmol/L Glucose 70 L (74-99) mg/dL
[2020-07-30 13:25] VITALS: RESP 18
--- NOTE | 2020-07-30 13:42 | P.PN ---
Progress Note - Text Progress Note Date: 07/30/20 Interval History: Patient was seen in his bedroom and was directable and agreeable to speak with financial writer. Currently the patient is reporting significant improvement in mood and is not reporting any racing thoughts, irritability, mood swings, grandiosity, auditory hallucinations, or visual hallucinations. At this time patient denies any suicidal or homicidal ideations, intent or plan. He is not reporting any significant side effects his medications and has been adherent. As per discussion with the patient's nurse, he continues to the impulsive and has not been sleeping. They report at most he has slept for 2 hours and continues to have high energy and occasional mood lability. Last night he was noted to be particularly irritable. He is agreeable to inpatient psychiatric admission for mood stabilization. Mental Status Exam: General Appearance: Patient has no small hematoma over his right eye. He otherwise appears to be stated age, is directable, and cooperative. Behavior: Psychomotor activity is elevated. Speech: Patient's speech is rapid, spontaneous, and high in volume but otherwise nonpressured and interruptible. Mood/Affect: Mood is described as great. Affect is bright and expansive. Suicidality/Homicidality: Patient denies having any suicidal or homicidal ideation intent or plan. Perceptions: Patient denies any visual hallucinations and denies any auditory hallucinations Though content/process: There is no evidence of any delusional thought content and thought process is linear and goal-directed. Memory and concentration: AOX3, grossly intact for the purposes of this session Judgment and insight: Improving mildly Assessment Bipolar disorder, unspecified Rule out schizoaffective disorder History of polysubstance use Plan: -At this time, patient does meet criteria for inpatient psychiatric admission for mood stabilization. He continues to display manic symptoms and would benefit from psychiatric admission to address his unstable mood. He has been noted to be improving since the reintroduction of his medications. -Delirium precautions recommended with patient including: Avoiding use of narcotics and BODY FORMER sedatives, limit anticholinergic medications when possible, frequent reorientation, minimize use of restraints, open window shades during the day and close them at night -Medications: Continue Depakote 250 mg by mouth 3 times a day, Lamictal 200 mg by mouth twice a day, trazodone 100 mg by mouth at bedtime when necessary for insomnia We will decrease Effexor to 150 mg by mouth daily so as to avoid manic switch and over activation. -When necessary Ativan and Geodon for agitation/aggression.] May discontinue one-to-one sitter when on the psychiatric floor -Patient cannot leave AMA at this time. Patient will need a petition and certification if attempting to leave AMA. -When medically stable, patient is eligible for transfer to a psych bed when available.
--- NOTE | 2020-07-30 15:26 | P.PN ---
Subjective Progress Note Date: 07/29/20 Principal diagnosis: Acute breakthrough seizures due to noncompliance with medications. 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 Patient did have generalized currently seizure and was noted by his family. Patient does not know what happened and could not provide any history at this time. EMS was called and patient was brought to the hospital patient was in postictal state and he came to ER. Patient has multiple recent visits for recurrent seizures. Patient was also seen at [facility]. Currently on multiple antiepileptic medications including Lamictal, Depakote, Keppra and Zonegran. Laboratory data showed WBC 20.2, hemoglobin 13.7, platelets 329 Sodium 135, potassium 4.6, chloride of 97 and bicarb is 11 BUN 11 and creatinine 1.34 Albumin 5.1 Liver numbers are not elevated Valproic acid less than 10 and carbamazepine less than 3 alcohol less than 10 [address] head showed right frontal scalp hematoma. This appears to be new compared to recent exam. 07/29/2020 Patient is currently lying in the bed and trying to get out of the bed. Sitter at bedside. Patient had a fall while he was getting out of bed today morning. Patient was found on the floor and had laceration on the right eyebrow which was beating. Gen. surgery was consulted and sutures were applied. Currently denied any complaints of headache or pain. CT head showed no acute intracranial process. Right scalp hematoma as seen before. Patient is currently able to ambulate. No fever no chills. Overnight blood pressure was elevated and losartan was added to his medication of metoprolol. Lamictal dose was decreased to 200 mg as per neurology due to interaction with Depakote. Patient was seen by psychiatry and recommended inpatient psych units transfer. Current medications reviewed. Objective - Vital Signs Vital signs: Vital Signs Temp 97.6 F 07/29/20 19:55 Pulse 66 07/29/20 19:55 Resp 16 07/29/20 19:58 BP 174/87 07/29/20 19:55 Pulse Ox 99 07/29/20 19:55 Intake & Output 07/29/20 07/29/20 07/30/20 06:59 18:59 06:59 Intake Total 1400 1210 Output Total 900 1300 Balance 500 -90 Weight 76.9 kg Intake: Oral 1400 1210 Output: Urine 900 1300 Other: Voiding Method Urinal Urinal # Voids 1 - Exam PHYSICAL EXAMINATION: Patient is lying in the bed comfortably, no acute distress, awake alert and oriented.. HEENT: Normocephalic. Neck is supple. Pupils reactive. Nostrils clear. Oral cavity is moist. Ears reveal no drainage. Patient does have laceration on the over the right eyebrow Neck reveals no JVD, carotid bruits, or thyromegaly. CHEST EXAMINATION: Trachea is central. Symmetrical expansion. Lung villarreal clear to auscultation and percussion. CARDIAC: Normal S1, S2 with no gallops. No murmurs ABDOMEN: Soft. Bowel sounds normal. No organomegaly. No abdominal bruits. Extremities: reveal no edema. No clubbing or cyanosis Neurologically awake, alert, oriented x2-3 with well-coordinated movements. No focal deficits noted Skin: No rash or skin lesions. Psychiatric: nonCoperative. Musculoskeletal: No joint swelling or deformity. Normal range of motion. - Labs CBC & Chem 7: 07/30/20 08:32 07/30/20 08:32 Assessment and Plan Assessment: Acute breakthrough seizures due to noncompliance with medications. Status post fall and laceration on the right forehead. Acute metabolic acidosis Leukocytosis likely reactive. Improved Frontal scalp hematoma Seizure disorder with multiple admissions for seizures. Noncompliance with medications. COPD not in exacerbation Bipolar disorder anxiety/depression/schizophrenia Hypertension GERD Memory impairment and legally incapacitated History of diverticulosis Marijuana use Previous history of smoking DVT prophylaxis with heparin subcu Plan: Patient was started on Keppra thousand milligrams twice daily in the ER. Patient is currently more awake and oriented. Started back on his home regimen. Neurology has seen the patient. Recommends follow-up as an outpatient. Continue seizure precautions and fall precautions. Anticipate discharge the next 24 hours. Time with Patient: Greater than 30
[2020-07-30] MEDS ORDERED: amLODIPine 5 MG TAB PO SCH (15:30)
[2020-07-30 16:11] VITALS: BP 159/91; PULSE 67
--- NOTE | 2020-07-30 17:01 | P.PN ---
Subjective Progress Note Date: 07/30/20 07/30/2020: Patient was seen for a follow-up. Patient is doing much better now. No seizures reported. Patient has been very anxious, impulsive. Patient is going to psych unit. 07/29/2020: Patient last night was noted to be severely anxious, pacing around in room. He was instructed to stay in bed or chair related to fall risk and seizure precautions. Patient continuously getting out of bed without assistance. Redirection was unsuccessful. Patient became combative with staff, yelling and cursing. Patient placed on CIWA protocol. Patient was placed on 4 points restraints. Restraints were removed at 6:15 AM. At 6:30 loud crash heard from patient's room. Patient was found face down on floor with pool of blood from around his head. Patient had deep laceration over the eyebrow. Patient apparently had tried to climb out of bed over the side rails, and fell face forward. Staff heard a loud crash, went in and he was on the floor. Patient underwent computed tomography scan of the head, which revealed no acute intracranial process. It showed right frontal scalp hematoma. At present patient feels fine. He is walking around. Denies headache. No seizures reported. Objective - Vital Signs Vital signs: Vital Signs Temp 98.2 F 07/30/20 04:00 Pulse 67 07/30/20 16:10 Resp 18 07/30/20 16:10 BP 159/91 07/30/20 16:10 Pulse Ox 96 07/30/20 13:25 Intake & Output 07/29/20 07/30/20 07/30/20 18:59 06:59 18:59 Intake Total 1210 540 240 Output Total 1300 600 Balance -90 -60 240 Weight 76.4 kg Intake: Oral 1210 540 240 Output: Urine 1300 600 Other: Voiding Method Urinal - Exam Patient's mental status is stable. Speech and language functions and normal muscle strength is normal. Cranial nerves are normal. He has laceration of the right eyebrow. Patient is walking, pacing the room. - Labs CBC & Chem 7: 07/30/20 08:32 07/30/20 08:32 Labs: Abnormal Lab Results - Last 24 Hours (Table) 07/30/20 07/30/20 Range/Units 08:32 08:32 RBC 4.06 L (4.30-5.90) m/uL Hgb 12.7 L (13.0-17.5) gm/dL Hct 38.2 L (39.0-53.0) % Sodium 133 L (137-145) mmol/L Glucose 70 L (74-99) mg/dL Assessment and Plan Assessment: * Breakthrough seizure, likely due to not taking medications since 07/25/2020. Patient was recently admitted to [facility], but the medications were lost in the hospital and he was without seizure medication since Sunday. * Seizure disorder * Status post fall while climbing out of the bed. * Bipolar disorder, rule out schizoaffective disorder. Plan: * Patient being admitted to psych unit for management of his bipolar disorder. * Continue Keppra 1500 mg twice a day. We will decrease Lamictal to 200 mg twice a day because of interaction with Depakote. Continue Zonegran 100 mg daily and Depakote 250 mg 3 times a day. Patient's daughter was informed that Depakote and Lamictal have drug interactions and Depakote increases the level of Lamictal. She was informed that if patient starts having problems with incoordination, balance issues and double vision, then may have to decrease the dose of Lamictal. Suggest checking levels of Keppra, Lamictal checked in 2-4 weeks. He was recommended to follow-up with the neurologist as outpatient.
[2020-07-31] MEDS ORDERED: VENLAFAXINE HCL ER 150 MG CAP PO SCH (09:00)
== END 2020-07-30 20:24 | DRG 101 ==
LOC: EC 21:29 → 3SCARD 22:24 → OBSVTOIN 07-29 13:45
PROVIDERS: ADMIT Internal Medicine; ATTEND Internal Medicine
DX: G40.411 Other generalized epilepsy and epileptic syndromes, intractable, with status epilepticus (principal); E87.2 Acidosis; I11.0 Hypertensive heart disease with heart failure; I50.9 Heart failure, unspecified; E03.9 Hypothyroidism, unspecified; S00.03XA Contusion of scalp, initial encounter; D72.829 Elevated white blood cell count, unspecified; F31.9 Bipolar disorder, unspecified; F20.9 Schizophrenia, unspecified; J44.9 Chronic obstructive pulmonary disease, unspecified; S01.111A Laceration without foreign body of right eyelid and periocular area, initial encounter; T42.76XA Underdosing of unspecified antiepileptic and sedative-hypnotic drugs, initial encounter; K44.9 Diaphragmatic hernia without obstruction or gangrene; K21.9 Gastro-esophageal reflux disease without esophagitis; K57.90 Diverticulosis of intestine, part unspecified, without perforation or abscess without bleeding; F41.9 Anxiety disorder, unspecified; R45.87 Impulsiveness; F14.11 Cocaine abuse, in remission; F11.11 Opioid abuse, in remission; F15.11 Other stimulant abuse, in remission; F17.210 Nicotine dependence, cigarettes, uncomplicated; Z91.128 Patient's intentional underdosing of medication regimen for other reason; Z79.82 Long term (current) use of aspirin; Z79.899 Other long term (current) drug therapy; Z91.81 History of falling; Z78.1 Physical restraint status; Z87.19 Personal history of other diseases of the digestive system; Z96.653 Presence of artificial knee joint, bilateral; Z87.81 Personal history of (healed) traumatic fracture; Z87.820 Personal history of traumatic brain injury; Z98.890 Other specified postprocedural states; W01.0XXA Fall on same level from slipping, tripping and stumbling without subsequent striking against object, initial encounter; Y92.230 Patient room in hospital as the place of occurrence of the external cause; Y63.6 Underdosing and nonadministration of necessary drug, medicament or biological substance; Z82.49 Family history of ischemic heart disease and other diseases of the circulatory system; Z82.3 Family history of stroke; Z83.6 Family history of other diseases of the respiratory system; Z80.9 Family history of malignant neoplasm, unspecified
CPT/HCPCS: 36415; 70450; 80048; 80053; 80156; 80164; 80320; 80329; 83520; 85025; 93005; 94760; 96361; 96365; 96372; 96375; 99291

== ENCOUNTER 2020-07-30 20:34 | Inpatient (IN) | payer MEDICAID, MEDICARE ==
[2020-07-30] MEDS ORDERED: traZODone HCL 100 MG TAB PO PRN (20:45)
[2020-07-30] MEDS: lamoTRIgine 100 MG TAB PO SCH (22:20)
[2020-07-30] MEDS: busPIRone HCl 5 MG TAB PO SCH (22:20)
[2020-07-30] MEDS: MONTELUKAST 10 MG TAB PO SCH (22:20)
[2020-07-30] MEDS: DIVALPROEX 250 MG TABLET.DR PO SCH (22:21)
[2020-07-31] MEDS ORDERED: VENLAFAXINE HCL ER 75 MG CAP PO SCH (09:00)
[2020-07-31] MEDS: METOPROLOL TARTRATE 25 MG TAB PO SCH ×2 (09:54→21:41)
[2020-07-31] MEDS: DIVALPROEX 250 MG TABLET.DR PO SCH (09:55)
[2020-07-31] MEDS: busPIRone HCl 5 MG TAB PO SCH ×3 (09:55→21:42)
[2020-07-31] MEDS: LOSARTAN 50 MG TAB PO SCH (09:55)
[2020-07-31] MEDS: lamoTRIgine 100 MG TAB PO SCH (09:55)
[2020-07-31] MEDS: ASPIRIN 81 MG PO SCH (09:55)
[2020-07-31] MEDS: THIAMINE 100 MG TAB PO SCH ×2 (10:45→21:42)
[2020-07-31] MEDS: ZONISAMIDE 100 MG CAP PO SCH (10:46)
--- NOTE | 2020-07-31 11:16 | P.HP ---
Psychiatric H&P - . H&P Date: 07/31/20 History & Physical: Allergies Allergy/AdvReac Type Severity Reaction Status Date / Time No Known Allergies Allergy Verified 07/30/20 21:04 Vital Signs Temp 98.2 F 07/31/20 06:48 Pulse 101 H 07/31/20 06:48 Resp 16 07/31/20 06:48 BP 114/73 07/31/20 06:48 Pulse Ox 96 07/30/20 21:38 Intake & Output 07/30/20 07/31/20 07/31/20 18:59 06:59 18:59 Weight 76.4 kg Laboratory Last Values Triglycerides 40 mg/dL (<150) 07/30/20 08:32 Cholesterol 127 mg/dL (<200) 07/30/20 08:32 LDL Cholesterol, Calc 58 mg/dL (0-99) 07/30/20 08:32 HDL Cholesterol 61 mg/dL (40-60) H 07/30/20 08:32 TSH 3.520 mIU/L (0.465-4.680) 07/30/20 08:32 07/31/20 10:08 Consult date: 07/29/20 Consult:: IDENTIFYING DATA: This patient is a 64-year-old male with significant history of seizure disorder who presented to the hospital for recurrent seizures with status epilepticus.(He could not just answer me when I asked him how old he was he had to calculate it) HISTORY OF PRESENT ILLNESS: The patient presented to the hospital on 07/27/2020 in a postictal state. He was admitted to the psychiatric unit on 07/30/2020. Patient has been noted to have multiple seizures prior to this admission. Psychiatry was called and consulted for a history of bipolar/schizophrenia. He is not reporting any significant symptoms of depression at this time. The patient denies any suicidal or homicidal ideations, intent or plan. There is some concern that the patient has been experiencing more of a manic episode. Patient has been impulsive while on the hospital floor. Patient even tripped and fell which resulted in a cut over his right eye. He has been intrusive with staff and has been noted to not need sleep. He is not reporting any grandiosity, racing thoughts, or pressured speech. Prior to this admission, he was on multiple psychiatric and neurologic medications including Depakote, Lamictal, Effexor, BuSpar, and trazodone. Patient was recently hospitalized at [facility] after having a seizure on Sunday but was discharge on Sunday without any medication. This is suspected to be the reason why he has had a seizure. Despite being on Depakote and Lamictal, patient has been noted to have low Depakote levels . Currently he denies any auditory, visual hallucinations and denies any paranoia or delusions. He is uncertain about what medications he has been prescribed to manage his psychiatric illnesses identifies his having been diagnosed with "manic depressive disorder and bipolar disorder." On the unit the patient has fluctuating functions sometimes he gets angry yelling at staff and cursing he is also somewhat unstable and did fall on one occasion. Upon admission, the patient's daughter said that the patient has a significant psychiatric history including diagnoses of traumatic brain injury, multiple personalities, bipolar disorder, and schizophrenia. She states that at baseline, the patient is pleasant and bright but may be irritable at times. She reports that he has been on multiple medications in the past and follows with Dr. Asencio from [facility] in the outpatient setting. She suspects that his mood has been unstable due to the abrupt discontinuation of his medication since last Sunday. PAST PSYCHIATRIC HISTORY: Patient has a a history of bipolar disorder. The patient has been on Seroquel in the past which caused him to have "angry multiple personalities." Patient currently follows with Dr. Asencio from [facility]. Patient admits to using multiple substances in the past. He reports a significant history of cocaine, acid, methamphetamine, opiate, and mescaline use when he was working with the [employer] in [place] 4-5 years ago. He reports that during that time he experienced significant psychiatric symptoms including auditory hallucinations, paranoia, and suicidal thoughts. Currently he seems most distressed about recurring intrusive thoughts of "animals messing with my hair." PAST MEDICAL HISTORY: Angina, heart failure, COPD, GERD, hypertension, seizure disorder, hypothyroid disorder,post closed head injury. CHEMICAL DEPENDENCY HISTORY: Patient admits to using multiple substances in the past. He reports a significant history of cocaine, acid, methamphetamine, opiate, and mescaline use when he was working with the [employer] in [place] 4-5 years ago. FAMILY PSYCHIATRIC/SUBSTANCE USE HISTORY: Mother - Bipolar, depression, anxiety Daughter - depression/anxiety SOCIAL HISTORY: Patient was born and raised in [place]. His parents when he was young his mom in her 60s he does not know how old that was when he . They had 3 boys together he was the oldest. He dropped out of school in either the 10th or 11th grade and went on to get a GED he is not sure why he dropped out. He says he was briefly but does not know for how long and they had a daughter his oldest who is the daughter he lives with. I asked him on many grandchildren he had he had to think for a long period of time using his fingers and he thought he might have 5. He has had no experience denies abuse or victimization he lives with his daughter and asked him what else lives in the house he took a long time to think through and he says well my daughter her my grandson and his grandson but he couldn't tell me the age of the great grandson. He has worked in a [employer] in [place] where he got a little wild and was using drugs. He can't tell me whether he is on disability or not. He does not go to sikhism has no friends he might go out for a walk but tends to get lost so he doesn't do that anymore.. MENTAL STATUS EXAM: General Appearance: Patient appears to be stated age is alert, pleasant, and cooperative. Patient appears to have fair hygiene and grooming wearing hospital gown with decreased eye contact. He has noticeable abrasion over his right eye. Behavior: Psychomotor activity is normal. Speech: Patient's speech soft slow and he has to pause to recall even simple overlearned information Mood/Affect: Patient reports their mood is "doing okay", affect flat, even a little sad Suicidality/Homicidality: Patient denies having any suicidal or homicidal ideation intent or plan he is a danger to himself because he has a severe seizure disorder and has not been taking the medications due to his psychiatric illness.. Perceptions: Patient denies any visual hallucinations and denies any auditory hallucinations Though content/process: There is no evidence of any delusional thought content. He tries to answer the questions but is slow and disorented and forgetful. Memory and concentration: AOX3, grossly intact for the purposes of this session. Judgment and insight: poor IMPRESSIONS: Dementia Rule out Bipolar disorder, unspecified - likely secondary to abrupt discontinuation of his antiseizure/mood stabilization medications Rule out schizoaffective disorder Rule out polysubstance use disorder PLAN: -At this time patient DOES meet criteria for inpatient psychiatric admission. Patient appears to be increasingly manic and would benefit from inpatient psychiatric admission to safely address his unstable mood. -Delirium precautions recommended with patient including - avoiding use of narcotics and SPINNER FIXER sedatives, limit anticholinergic medications when possible, frequent re-orientation, minimize use of restraints, open window shades during the day and close them at night -Daughter is agreeable that the patient would require inpatient psychiatric hospitalization to stabilize mood prior to discharge. I talked to the daughter and she says the patient has not had Lamictal since the previous Sunday. Checking on the MAR this morning is the first time he got the Lamictal that makes it over a week off the Lamictal I will need to discontinue it. Continue Depakote 500 twice a day. We will then draw a level on Sunday to see if is coming up for therapeutic level as the Depakote helps both the moods agitation and the seizure. Continue Lamictal 200 mg by mouth twice a day but be sure he has in fact been taking this or he could have an allergic reaction Decrease Effexor to 150 as it can cause bipolar to be less stable and lower seizure threshold. Continue trazodone 100 mg by mouth at bedtime when necessary for insomnia - 07/31/20 10:48 07/31/20 11:11
[2020-07-31 18:36] LABS: Hemoglobin A1C 5.4 % (4.0-6.0)
[2020-07-31] MEDS: MONTELUKAST 10 MG TAB PO SCH (21:41)
[2020-07-31] MEDS: DIVALPROEX ER 500 MG TAB.ER.24H PO SCH (21:42)
[2020-07-31] MEDS: FAMOTIDINE 20 MG TAB PO SCH (21:42)
--- NOTE | 2020-07-31 22:20 | P.MDCNMH ---
History of Present Illness H&P Date: 07/31/20 Chief Complaint: Acute behavioral disturbance/delirium Patient is a 64-year-old male with a known history of hypertension, COPD, hypothyroidism, memory impairment and previous history of closed head injury and seizure disorder with multiple seizure medications initially presented to ER after having a seizure episode and fall. Patient was also having anxiety and impulsive behavior. Patient was seen by psychiatry and recommended inpatient psychiatric admission. Currently patient was admitted to inpatient psychiatric unit. Patient has been noncompliant with his medications and admitted to the hospital with breakthrough seizures. Patient was seen by neurology. Patient is for antiepileptic drugs. Patient had CT head showed no acute intracranial process. Right scalp hematoma likely from the fall. Currently patient is lying in the bed comfortably. Denied any chest pain or shortness breath. No headache or dizziness or lightheadedness. Patient has been afebrile. Laboratory data showed WBC 8.5, hemoglobin 12.7 and platelets 270 Sodium 133, potassium 4.4, BUN is 13 and creatinine 0.87 TSH level is 3.52 Review of Systems Constitutional: Patient denies any fever or chills . No generalized weakness or weight loss. Abdomen: Patient denied nausea vomiting and diarrhea and abdominal pain. Cardiovascular: Patient denies any chest pain or short of breath no palpitations. Respiratory: patient denied any cough is from production. No shortness of breath Neurologic: Patient denied any numbness or tingling headache. Complete review of systems could not be obtained from the patient. Past Medical History Past Medical History: Chest Pain / Angina, Heart Failure, COPD, GERD/Reflux, Hypertension, Seizure Disorder, Thyroid Disorder Additional Past Medical History / Comment(s): falls,bronchitis,Memory impairment, legally incapacitated, hypothyroid, small hiatal hernia, diverticulosis History of Any Multi-Drug Resistant Organisms: None Reported Past Surgical History: Hernia Repair, Joint Replacement, Orthopedic Surgery Additional Past Surgical History / Comment(s): 08/2017 EGGD/colonoscopy, prior colonoscopy, umbilical hernia repair, L total knee, R partial knee replacement, R lower leg fracture with ORIF (hardware in place), ERCP, bilateral knee arthroscopies. Past Anesthesia/Blood Transfusion Reactions: No Reported Reaction Past Psychological History: Anxiety, Bipolar, Depression, Schizophrenia Additional Psychological History / Comment(s): Pt resides with his daughter, Pat who is his regional sales trainer, legal gaurdian. Pt ambulates without device. He does not drive, daughter takes him to appts. Smoking Status: Current every day smoker Past Alcohol Use History: Occasional Additional Past Alcohol Use History / Comment(s): Pt started smoking in 1971 and is less than a ppd smoker on average. Past Drug Use History: Marijuana Additional Drug Use History / Comment(s): Pt occasionally smokes marijuana. - Past Family History Father Family Medical History: Cancer, Coronary Artery Disease (CAD), Pneumonia Additional Family Medical History / Comment(s): Father had a pacemaker. He of pneumonia. Mother Family Medical History: Coronary Artery Disease (CAD), CVA/TIA Medications and Allergies Home Medications Medication Instructions Recorded Confirmed Type Montelukast [Singulair] 10 mg PO HS 12/30/17 07/30/20 History Famotidine 20 mg PO HS 11/25/19 07/30/20 History levETIRAcetam [Keppra] 1,500 mg PO BID #60 tab 11/27/19 07/30/20 Rx busPIRone HCL 15 mg PO TID 03/14/20 07/30/20 History traZODone HCL 100 mg PO HS PRN 03/14/20 07/30/20 History Zonisamide [Zonegran] 100 mg PO DAILY 30 Days #30 cap 03/16/20 07/30/20 Rx Divalproex [Depakote] 250 mg PO TID 07/23/20 07/30/20 History Metoprolol Tartrate [Lopressor] 25 mg PO AC-BID 07/23/20 07/30/20 History Venlafaxine HCl [Effexor XR] 225 mg PO DAILY 07/23/20 07/30/20 History Aspirin [Adult Low Dose Aspirin EC] 81 mg PO DAILY 07/27/20 07/30/20 History Thiamine [Vitamin B-1] 100 mg PO BID-W/MEALS #30 tab 07/29/20 07/30/20 Rx Losartan [Cozaar] 50 mg PO DAILY tab 07/30/20 07/30/20 Rx lamoTRIgine [LaMICtal] 200 mg PO BID tab 07/30/20 07/30/20 Rx Allergies Allergy/AdvReac Type Severity Reaction Status Date / Time No Known Allergies Allergy Verified 07/30/20 21:04 Physical Exam Vitals: Vital Signs Temp Pulse Resp BP Pulse Ox 07/31/20 06:48 98.2 F 101 H 16 114/73 07/30/20 21:38 99.3 F 96 18 152/99 96 Intake and Output 07/30/20 07/31/20 07/31/20 22:59 06:59 14:59 Other: Weight 76.4 kg PHYSICAL EXAMINATION: Patient is lying in the bed comfortably, no acute distress, awake alert and impulsive. HEENT: Normocephalic. Neck is supple. Pupils reactive. Nostrils clear. Oral cavity is moist. Ears reveal no drainage. Laceration over the right eyebrow. Neck reveals no JVD, carotid bruits, or thyromegaly. CHEST EXAMINATION: Trachea is central. Symmetrical expansion. Lung villarreal clear to auscultation and percussion. CARDIAC: Normal S1, S2 with no gallops. No murmurs ABDOMEN: Soft. Bowel sounds normal. No organomegaly. No abdominal bruits. Extremities: reveal no edema. No clubbing or cyanosis Neurologically awake, alert, oriented x2-3 with well-coordinated movements. No focal deficits noted Skin: No rash or skin lesions. Psychiatric: Coperative. Musculoskeletal: No joint swelling or deformity. Normal range of motion. Cranial Nerve Examination - Cranial Nerves Cranial Nerve I- Olfactory: Intact Cranial Nerve II- Optic: Intact Cranial Nerve III- Oculomotor: Intact Cranial Nerve IV- Trochlear: Intact Cranial Nerve V- Trigeminal: Intact Cranial Nerve - Abducens: Intact Cranial Nerve VII- Facial: Intact Cranial Nerve VIII- Auditory: Intact Cranial Nerve IX- Glossopharyngeal: Intact Cranial Nerve X- Vagus: Intact Cranial Nerve XI- Accessory: Intact Cranial Nerve XII- Hypoglossal: Intact Results Labs: Abnormal Lab Results - Last 24 Hours (Table) 07/30/20 Range/Units 08:32 HDL Cholesterol 61 H (40-60) mg/dL Assessment and Plan Assessment: Acute behavioral disturbance/delirium Seizure disorder with multiple antiepileptic medications Acute breakthrough seizures due to noncompliance with medications. Status post fall and laceration on the right forehead. Frontal scalp hematoma Noncompliance with medications. COPD not in exacerbation Bipolar disorder anxiety/depression/schizophrenia Hypertension. Currently on metoprolol and losartan. Controlled. GERD Memory impairment and legally incapacitated History of diverticulosis Marijuana use Previous history of smoking DVT prophylaxis with heparin subcu Plan: Patient will be continued antiplatelet medications including Depakote, Keppra, Zonegran and Lamictal. Continue with current psychiatric management and plan. Monitor for alcohol withdrawal symptoms. Encourage oral intake. Otherwise continue current management and further recommendations based on clinical course. We will continue to follow with you. Thank you for your consult. Time with Patient: Greater than 30
[2020-08-01] MEDS: ASPIRIN 81 MG PO SCH (09:40)
[2020-08-01] MEDS: METOPROLOL TARTRATE 25 MG TAB PO SCH ×2 (09:40→17:42)
[2020-08-01] MEDS: busPIRone HCl 5 MG TAB PO SCH ×3 (09:40→22:47)
[2020-08-01] MEDS: THIAMINE 100 MG TAB PO SCH ×2 (09:40→17:43)
[2020-08-01] MEDS: LOSARTAN 50 MG TAB PO SCH (09:40)
[2020-08-01] MEDS: ZONISAMIDE 100 MG CAP PO SCH (09:41)
--- NOTE | 2020-08-01 14:45 | P.PN ---
Subjective Progress Note Date: 08/01/20 Principal diagnosis: Diagnosis bipolar 1 unspecified Dementia Subjective patient spent the whole day and is room he slept last night and seems to be sleeping during the day he says he went to a group but decided I can tell he has been to any groups. He denies suicidality or homicidality Objective: Vital signs: Temperature 98.7 heart rate 79 respirations 16 blood pressure 133/83 Labs he general chemistry which was fine HDL is elevated but that a Groups not attending Staff assessment basically that he is withdrawn and so they can't assess him because he is just staying in his room . Mental status: Gait and station normal he was itching some of the scabs on his leg poor eye contact vague or memory denies any suicidality or homicidality or psychotic symptoms minimal ADLs Current medications BuSpar 15 3 times a day which would not make him sleepy,Depakote 1000 daily at bedtime which can make him somewhat sleepy Assessment patient is using sleep to avoid life Plan no change at this time Objective - Vital Signs Vital signs: Vital Signs Temp 98.7 F 08/01/20 06:40 Pulse 79 08/01/20 06:40 Resp 16 08/01/20 06:40 BP 133/83 08/01/20 06:40 Pulse Ox 96 07/30/20 21:38 Intake & Output 07/31/20 08/01/20 08/01/20 18:59 06:59 18:59 Weight 72.7 kg
[2020-08-01] MEDS: FAMOTIDINE 20 MG TAB PO SCH (22:47)
[2020-08-01] MEDS: DIVALPROEX ER 500 MG TAB.ER.24H PO SCH (22:48)
[2020-08-01] MEDS: MONTELUKAST 10 MG TAB PO SCH (22:48)
[2020-08-02] MEDS: LOSARTAN 50 MG TAB PO SCH (08:12)
[2020-08-02] MEDS: ZONISAMIDE 100 MG CAP PO SCH (08:12)
[2020-08-02] MEDS: METOPROLOL TARTRATE 25 MG TAB PO SCH ×2 (08:12→17:30)
[2020-08-02] MEDS: ASPIRIN 81 MG PO SCH (08:12)
[2020-08-02] MEDS: THIAMINE 100 MG TAB PO SCH ×2 (08:12→17:30)
[2020-08-02] MEDS: busPIRone HCl 5 MG TAB PO SCH ×3 (08:12→21:51)
--- NOTE | 2020-08-02 10:37 | P.PN ---
Progress Note - Text Progress Note Date: 08/02/20 Interval History: Patient was seen in his room and was directable and agreeable to speak with typewriter ribbon winder in the office. Patient reports that overall he feels better. He does appear to have issues with memory. He is unable to certain events during the day such as eating breakfast. He reports that he had slept last night. He is not reporting any racing thoughts, irritability, or grandiosity. He denies any current mood swings. He states that he hasn't spoken to his daughter Pat over the weekend and will try to speak to her today. At this time patient denies any suicidal or homicidal ideations, intent or plan. Patient denies any auditory, visual hallucinations and denies any paranoia or delusions. Patient denies any side effects from the medications and has been compliant with meds. He does report some generalized pruritus, which he states this has been "on and off" prior to this admission and medications. Mental Status Exam: General Appearance: Patient appears to be stated age is alert, directable, and cooperative. He has noticeable superficial abrasions in both his upper and lower extremities. Behavior: Patient is calmly seated without any agitated behavior. Speech: Patient's speech is fluent and nonpressured. Mood/Affect: Mood is improving mildly, affect is congruent and constricted. Suicidality/Homicidality: Patient denies having any suicidal or homicidal ideation intent or plan. Perceptions: Patient denies any visual hallucinations and denies any auditory hallucinations Though content/process: There is no evidence of any delusional thought content and thought process is linear and goal-directed. Memory and concentration: AOX2, patient is only alert and oriented to person and place but not to date or time. Judgment and insight: Improving mildly Assessment Bipolar 1 disorder Major Neurocognitive disorder -Will need to obtain collateral information from the patient's daughter and we will recheck labs to see if there is anything contributing to his cognitive dysfunction Plan: -Patient continues to meet criteria for inpatient psychiatric admission for symptom stabilization and safety. Patient has signed adult voluntary form and medication consent and was placed in patient's chart. -Patient's labs are reviewed, ammonia level on 07/23/2020 was 21 (WNL), TSH on 07/30/2020 was 3.52 (WNL), sodium 133 (L) on 07/30/2020 -Medications: Continue Depakote ER 1000 mg by mouth at bedtime Continue BuSpar 15 mg by mouth 3 times a day Patient is also receiving Keppra 1500 mg by mouth twice a day for seizure disorder We will order Depakote level and CMP for tomorrow. -When necessary Ativan and Geodon for agitation/aggression. -SW on board for discharge planning. Encouraged the patient to participate in milieu.
[2020-08-02] MEDS: DIVALPROEX ER 500 MG TAB.ER.24H PO SCH (21:51)
[2020-08-02] MEDS: MONTELUKAST 10 MG TAB PO SCH (21:53)
[2020-08-02] MEDS: FAMOTIDINE 20 MG TAB PO SCH (21:53)
[2020-08-03] MEDS: ZONISAMIDE 100 MG CAP PO SCH (08:46)
[2020-08-03] MEDS: LOSARTAN 50 MG TAB PO SCH (08:46)
[2020-08-03] MEDS: THIAMINE 100 MG TAB PO SCH ×2 (08:46→15:42)
[2020-08-03] MEDS: METOPROLOL TARTRATE 25 MG TAB PO SCH ×2 (08:46→15:42)
[2020-08-03] MEDS: ASPIRIN 81 MG PO SCH (08:46)
[2020-08-03] MEDS: busPIRone HCl 5 MG TAB PO SCH ×3 (08:47→21:27)
--- NOTE | 2020-08-03 11:39 | P.DS ---
Providers Date of admission: 07/30/20 20:34 Expected date of discharge: 08/03/20 Attending physician: Get Dan MD Consults: 07/30/20 20:44 Consult Physician Routine Consulting Provider: Derrell Sierra Consult Reason/Comments: medical management Do you want consulting provider notified?: Yes, Notify in am Primary care physician: Lucia Kc - Discharge Diagnosis(es) (1) Bipolar disorder, unspecified Current Visit: Yes Status: Acute Priority: High (2) Major neurocognitive disorder Current Visit: Yes Status: Chronic Priority: Medium Hospital Course: Admission HPI: Initial psychiatric evaluation was performed by Dr. Richardson who wrote: "This patient is a 64-year-old male with significant history of seizure disorder who presented to the hospital for recurrent seizures with status epilepticus.(He could not just answer me when I asked him how old he was he had to calculate it) The patient presented to the hospital on 07/27/2020 in a postictal state. He was admitted to the psychiatric unit on 07/30/2020. Patient has been noted to have multiple seizures prior to this admission. Psychiatry was called and consulted for a history of bipolar/schizophrenia. He is not reporting any significant symptoms of depression at this time. The patient denies any suicidal or homicidal ideations, intent or plan. There is some concern that the patient has been experiencing more of a manic episode. Patient has been impulsive while on the hospital floor. Patient even tripped and fell which resulted in a cut over his right eye. He has been intrusive with staff and has been noted to not need sleep. He is not reporting any grandiosity, racing thoughts, or pressured speech. Prior to this admission, he was on multiple psychiatric and neurologic medications including Depakote, Lamictal, Effexor, BuSpar, and trazodone. Patient was recently hospitalized at [facility] after having a seizure on Sunday but was discharge on Sunday without any medication. This is suspected to be the reason why he has had a seizure. Despite being on Depakote and Lamictal, patient has been noted to have low Depakote levels . Currently he denies any auditory, visual hallucinations and denies any paranoia or delusions. He is uncertain about what medications he has been prescribed to manage his psychiatric illnesses identifies his having been diagnosed with 'manic depressive disorder and bipolar disorder.' On the unit the patient has fluctuating functions sometimes he gets angry yelling at staff and cursing he is also somewhat unstable and did fall on one occasion. Upon admission, the patient's daughter said that the patient has a significant psychiatric history including diagnoses of traumatic brain injury, multiple personalities, bipolar disorder, and schizophrenia. She states that at baseline, the patient is pleasant and bright but may be irritable at times. She reports that he has been on multiple medications in the past and follows with Dr. Asencio from [facility] in the outpatient setting. She suspects that his mood has been unstable due to the abrupt discontinuation of his medication since last Sunday." Hospital course: Patient was initially admitted for status epilepticus on the medical floor after abrupt discontinuation of his antiseizure and mood stabilizing medications. Upon admission to the mental health unit patient was initially is acting with manic symptoms including increased impulsivity, intrusiveness, high energy, and lack of sleep. Patient was however directable and agreeable to commence treatment. Patient got along well with other patients on the unit and followed unit protocol. Patient was compliant with the medications and denied any side effects throughout hospital course. Multiple medication changes have been made including discontinuing his Lamictal, increasing his Depakote, and decreasing his Effexor. Patient spoke of his stressors and engaged in therapy both group and individual. Patient was also seen by medical team for history and physical exam. Patient began experiencing significant improvement in his mood and with less manic and sleeping every night. He appeared to tolerate the medication changes well. Throughout the course of the hospitalization patient gradually improved with regards to mood stabilization, sleep and became future oriented with improved insight and judgment. On the day of discharge patient denied any suicidal or homicidal ideations intent or plan denied any auditory or visual hallucinations. Patient endorsed wanting to live for his health and family. The patient denied any access to guns or weapons. Patient denied any paranoia and did not endorse any delusions. Patient does have a significant history of lee bstance abuse however was counseled on abstaining from all substances including alcohol and marijuana. Patient was also counseled on the medications and need for regular compliance and was encouraged to follow-up with their outpatient appointment for mental health and also for primary care. Prior to discharge a family meeting will be arranged by certified social workers in health care to answer any questions and ensure safety upon discharge. Mental status exam: General Appearance: Patient appears to be stated age is alert, pleasant, and cooperative. Patient is in no acute distress and has fair hygiene and grooming Behavior: Patient is calmly seated without any agitated behavior. Speech: Patient's speech is fluent and nonpressured. Mood/Affect: Patient reports their mood is "much better", affect is congruent and euthymic. Suicidality/Homicidality: Patient denies having any suicidal or homicidal ideation intent or plan. Perceptions: Patient denies any auditory or visual hallucinations. Though content/process: There is no evidence of any delusional thought content and thought process is linear and goal-directed. more future oriented Memory and concentration: AOX2, he is not oriented to time, grossly intact for the purposes of this session. Can spell "WORLD" backwards correctly. Judgment and insight: Improved with guarded prognosis Impression: Bipolar disorder, unspecifiedlikely secondary to abrupt discontinuation of his antiseizure/mood stabilization medications Plan: -Continue with discharge today as patient has improved and stabilized psychiatrically and is not currently an imminent threat to himself and/or others. Patient will remain at chronically elevated risk for harm to self and/or others due to his impulsivity and polysubstance abuse. -Medications at discharge: Depakote ER 1000 mg by mouth at bedtime BuSpar 15 mg by mouth 3 times a day by mouth Keppra 1500 mg by mouth twice a day Zonisamide 100 mg by mouth daily -Patient has been tapered off Effexor and trazodone so as to minimize over activation and manic switch as well as medications that may contribute to lowering seizure threshold. -Lamictal has been discontinued due to the patient being abruptly stopped the medication. We will defer to his outpatient Psychiatry and/or Neurology provider for reinitiation of this medication. -Patient was counseled on the need for medication compliance and appropriate follow-up at mental health and also primary care for medical issues. Patient verbalized understanding and agreed. -Social work to arrange for and conduct family meeting to ensure safety upon discharge and answer any questions/concerns. Social work also to arrange for patients follow up appointments with [facility] for psychiatric care along with follow up with primary care provider. As well as follow-up with his neurologist due to his admission for status epilepticus and his change in his antiseizure medications including discontinuation of Lamictal. -Patient counseled on abstaining from recreational drugs and marijuana and alcohol. Was informed/educated on the adverse effects on their physical and mental health. Patient verbally agreed and understood. -Patient was instructed to return to the hospital or seek immediate medical care if their psychiatric or medical symptoms do worsen or reoccur. Vital Signs Temp 98.6 F 08/03/20 06:59 Pulse 109 H 08/03/20 08:49 Resp 18 08/03/20 08:49 BP 129/95 08/03/20 08:49 Pulse Ox 96 07/30/20 21:[address] Glu mg/dL 108 07/30/20 08:32 Hemoglobin A1c 5.4 % (4.0-6.0) 07/30/20 08:32 Triglycerides 40 mg/dL (<150) 07/30/20 08:32 Cholesterol 127 mg/dL (<200) 07/30/20 08:32 LDL Cholesterol, Calc 58 mg/dL (0-99) 07/30/20 08:32 HDL Cholesterol 61 mg/dL (40-60) H 07/30/20 08:32 TSH 3.520 mIU/L (0.465-4.680) 07/30/20 08:32 Allergies Allergy/AdvReac Type Severity Reaction Status Date / Time No Known Allergies Allergy Verified 07/30/20 21:04 Patient Condition at Discharge: Stable Plan - Discharge Summary New Discharge Prescriptions: New Aspirin 81 mg PO DAILY 30 Days chew Divalproex ER [Depakote ER] 1,000 mg PO HS 30 Days tab.er.24h levETIRAcetam [Keppra] 1,500 mg PO BID 30 Days tab Zonisamide [Zonegran] 100 mg PO DAILY 30 Days cap Continue busPIRone HCL 15 mg PO TID 30 Days tab Losartan [Cozaar] 50 mg PO DAILY 30 Days tab Famotidine 20 mg PO HS 30 Days tab Metoprolol Tartrate [Lopressor] 25 mg PO AC-BID 30 Days tab Montelukast [Singulair] 10 mg PO HS 30 Days tab Thiamine [Vitamin B-1] 100 mg PO BID-W/MEALS 30 Days #30 tab Discontinued levETIRAcetam [Keppra] 1,500 mg PO BID #60 tab traZODone HCL 100 mg PO HS PRN PRN Reason: Insomnia Zonisamide [Zonegran] 100 mg PO DAILY 30 Days #30 cap Venlafaxine HCl [Effexor XR] 225 mg PO DAILY Divalproex [Depakote] 250 mg PO TID Aspirin [Adult Low Dose Aspirin EC] 81 mg PO DAILY lamoTRIgine [LaMICtal] 200 mg PO BID tab Discharge Medication List Aspirin 81 mg PO DAILY 30 Days chew 08/03/20 [Rx] Divalproex ER [Depakote ER] 1,000 mg PO HS 30 Days tab.er.24h 08/03/20 [Rx] Famotidine 20 mg PO HS 30 Days tab 08/03/20 [Rx] Losartan [Cozaar] 50 mg PO DAILY 30 Days tab 08/03/20 [Rx] Metoprolol Tartrate [Lopressor] 25 mg PO AC-BID 30 Days tab 08/03/20 [Rx] Montelukast [Singulair] 10 mg PO HS 30 Days tab 08/03/20 [Rx] Thiamine [Vitamin B-1] 100 mg PO BID-W/MEALS 30 Days #30 tab 08/03/20 [Rx] Zonisamide [Zonegran] 100 mg PO DAILY 30 Days cap 08/03/20 [Rx] busPIRone HCL 15 mg PO TID 30 Days tab 08/03/20 [Rx] levETIRAcetam [Keppra] 1,500 mg PO BID 30 Days tab 08/03/20 [Rx] Follow up Appointment(s)/Referral(s): [facility] [Outside] - 08/04/20 1:00 pm (08-04-20 @ 1:00 with Graciela Baldwin face to face at [facility] office 08-10-20 @ 9:[address] Mena at [facility] office by [email or web address]) Activity/Diet/Wound Care/Special Instructions: Activity and diet as tolerated. Avoid the use of street drugs and alcohol. Take all medications as prescribed. When you are in need of refills on your medications please contact your medical provider and/or outpatient psychiatrist to have this done. Please go to scheduled outpatient appointment for aftercare treatment. If symptoms return or become worse, call the crisis line at and/or go to the nearest emergency room for evaluation.
[2020-08-03 12:13] LABS: Albumin 4.4 g/dL (3.5-5.0); Calcium 9.5 mg/dL (8.4-10.2); Potassium 5.5 mmol/L (3.5-5.1); Total Bilirubin 0.6 mg/dL (0.2-1.3); Total Protein 7.2 g/dL (6.3-8.2)
--- NOTE | 2020-08-03 12:59 | P.PN ---
Progress Note - Text Progress Note Date: 08/03/20 Interval History: Patient was seen wandering the hallways and was directable and agreeable to speak with writer producer in the office. Patient is not reporting any significant issues today. She denies any racing thoughts, mood swings, irritability, grandiosity, or excessive energy. He has been noted by staff to sleep appropriately. At this time patient denies any suicidal or homicidal ideations, intent or plan. Patient denies any auditory, visual hallucinations and denies any paranoia or delusions. Patient denies any side effects from the medications and has been compliant with meds. Originally he was to be discharged today, but we are still awaiting a Depakote level and his conference metabolic profile revealed elevated liver enzymes as well as a potassium of 5.5. We will reconsult medicine to evaluate the patient and manage if necessary. Mental Status Exam: General Appearance: Patient appears to be stated age is alert, directable, and cooperative. Behavior: Patient is calmly seated without any agitated behavior. Speech: Patient's speech is fluent and nonpressured. Mood/Affect: Mood is improving mildly, affect is congruent and constricted. Suicidality/Homicidality: Patient denies having any suicidal or homicidal ideation intent or plan. Perceptions: Patient denies any visual hallucinations and denies any auditory hallucinations Though content/process: There is no evidence of any delusional thought content and thought process is linear and goal-directed. Memory and concentration: AOX2, Not oriented to time, grossly intact for the purposes of this session Judgment and insight: Improving mildly Assessment Bipolar disorder Plan: -Patient continues to meet criteria for inpatient psychiatric admission for symptom stabilization and safety. Patient has signed adult voluntary form and medication consent and was placed in patient's chart. -Medications: Depakote ER 1000 mg by mouth at bedtime BuSpar 50 mg by mouth 3 times a day -Patient will require a neurology appointment to be scheduled prior to discharge -When necessary Jose J and Veto for agitation/aggression. -Medicine will be consulted for evaluation of lab abnormalities. -NRT - nicotine patch -SW on board for discharge planning. Encouraged the patient to participate in milieu.
[2020-08-03] MEDS ORDERED: SODIUM POLYSTYRENE SULFONATE 15 GM/60 ML BOTTLE PO ONE (15:31)
[2020-08-03] MEDS: MONTELUKAST 10 MG TAB PO SCH (21:27)
[2020-08-03] MEDS: DIVALPROEX ER 500 MG TAB.ER.24H PO SCH (21:27)
[2020-08-03] MEDS: FAMOTIDINE 20 MG TAB PO SCH (21:27)
[2020-08-04 00:06] LABS: Albumin 4.3 g/dL (3.5-5.0); Calcium 9.2 mg/dL (8.4-10.2); Total Bilirubin 0.5 mg/dL (0.2-1.3); Total Protein 6.9 g/dL (6.3-8.2)
[2020-08-04 00:37] LABS: Potassium 4.6 mmol/L (3.5-5.1)
[2020-08-04 07:11] VITALS: BP 138/61; PULSE 81; RESP 16; TEMP 98.2
[2020-08-04 09:31] LABS: Calcium 8.9 mg/dL (8.4-10.2)
[2020-08-04] MEDS: METOPROLOL TARTRATE 25 MG TAB PO SCH (10:02)
[2020-08-04] MEDS: ASPIRIN 81 MG PO SCH (10:02)
[2020-08-04] MEDS: busPIRone HCl 5 MG TAB PO SCH (10:02)
[2020-08-04] MEDS: THIAMINE 100 MG TAB PO SCH (10:02)
[2020-08-04] MEDS: ZONISAMIDE 100 MG CAP PO SCH (10:03)
--- NOTE | 2020-08-04 11:47 | P.DS ---
Providers Date of admission: 07/30/20 20:34 Expected date of discharge: 08/04/20 Attending physician: Get Dan MD Consults: 07/30/20 20:44 Consult Physician Routine Consulting Provider: Derrell Sierra Consult Reason/Comments: medical management Do you want consulting provider notified?: Yes, Notify in am 08/03/20 12:47 Consult Physician Routine Consulting Provider: Jone Miller Consult Reason/Comments: high potassium level Do you want consulting provider notified?: Yes Primary care physician: Lucia Kc - Discharge Diagnosis(es) (1) Bipolar disorder, unspecified Current Visit: Yes Status: Acute Priority: High (2) Major neurocognitive disorder Current Visit: Yes Status: Chronic Priority: Medium Hospital Course: Admission HPI: Initial psychiatric evaluation was performed by Dr. Richardson who wrote: "This patient is a 64-year-old male with significant history of seizure disorder who presented to the hospital for recurrent seizures with status epilepticus.(He could not just answer me when I asked him how old he was he had to calculate it) The patient presented to the hospital on 07/27/2020 in a postictal state. He was admitted to the psychiatric unit on 07/30/2020. Patient has been noted to have multiple seizures prior to this admission. Psychiatry was called and consulted for a history of bipolar/schizophrenia. He is not reporting any significant symptoms of depression at this time. The patient denies any suicidal or homicidal ideations, intent or plan. There is some concern that the patient has been experiencing more of a manic episode. Patient has been impulsive while on the hospital floor. Patient even tripped and fell which resulted in a cut over his right eye. He has been intrusive with staff and has been noted to not need sleep. He is not reporting any grandiosity, racing thoughts, or pressured speech. Prior to this admission, he was on multiple psychiatric and neurologic medications including Depakote, Lamictal, Effexor, BuSpar, and trazodone. Patient was recently hospitalized at [facility] after having a seizure on Sunday but was discharge on Sunday without any medication. This is suspected to be the reason why he has had a seizure. Despite being on Depakote and Lamictal, patient has been noted to have low Depakote levels . Currently he denies any auditory, visual hallucinations and denies any paranoia or delusions. He is uncertain about what medications he has been prescribed to manage his psychiatric illnesses identifies his having been diagnosed with 'manic depressive disorder and bipolar disorder.' On the unit the patient has fluctuating functions sometimes he gets angry yelling at staff and cursing he is also somewhat unstable and did fall on one occasion. Upon admission, the patient's daughter said that the patient has a significant psychiatric history including diagnoses of traumatic brain injury, multiple personalities, bipolar disorder, and schizophrenia. She states that at baseline, the patient is pleasant and bright but may be irritable at times. She reports that he has been on multiple medications in the past and follows with Dr. Asencio from [facility] in the outpatient setting. She suspects that his mood has been unstable due to the abrupt discontinuation of his medication since last Sunday." Hospital course: Patient was initially admitted for status epilepticus on the medical floor after abrupt discontinuation of his antiseizure and mood stabilizing medications. Upon admission to the mental health unit patient was initially is acting with manic symptoms including increased impulsivity, intrusiveness, high energy, and lack of sleep. Patient was however directable and agreeable to commence jolene tment. Patient got along well with other patients on the unit and followed unit protocol. Patient was compliant with the medications and denied any side effects throughout hospital course. Multiple medication changes have been made including discontinuing his Lamictal, increasing his Depakote, and decreasing his Effexor. Patient spoke of his stressors and engaged in therapy both group and individual. Patient was also seen by medical team for history and physical exam. Patient began experiencing significant improvement in his mood and with less manic and sleeping every night. He appeared to tolerate the medication changes well. Throughout the course of the hospitalization patient gradually improved with regards to mood stabilization, sleep and became future oriented with improved insight and judgment. Patient was initially supposed to be discharged on 08/03/2020 but had lab abnormalities including elevated liver enzymes and electrolyte abnormalities. We're also awaiting for his Depakote level. Internal medicine was consulted and evaluated the patient. Recheck of his labs revealed his electrolytes within normal limits and his liver enzymes to be downtrending. His Depakote level was within the therapeutic range of 55. He denied any physical symptoms. He denied any chest pain, shortness of breath, dizziness, confusion, or any neurological symptoms. On the day of discharge patient denied any suicidal or homicidal ideations intent or plan denied any auditory or visual hallucinations. Patient endorsed wanting to live for his health and family. The patient denied any access to guns or weapons. Patient denied any paranoia and did not endorse any delusions. Patient does have a significant history of substance abuse however was counseled on abstaining from all substances including alcohol and marijuana. Patient was also counseled on the medications and need for regular compliance and was encouraged to follow-up with their outpatient appointment for mental health and also for primary care. Prior to discharge a family meeting will be arranged by social media project manager to answer any questions and ensure safety upon discharge. Mental status exam: General Appearance: Patient appears to be stated age is alert, pleasant, and cooperative. Patient is in no acute distress and has fair hygiene and grooming Behavior: Patient is calmly seated without any agitated behavior. Speech: Patient's speech is fluent and nonpressured. Mood/Affect: Patient reports their mood is "much better", affect is congruent and euthymic. Suicidality/Homicidality: Patient denies having any suicidal or homicidal ideation intent or plan. Perceptions: Patient denies any auditory or visual hallucinations. Though content/process: There is no evidence of any delusional thought content a nd thought process is linear and goal-directed. more future oriented Memory and concentration: AOX2, he is not oriented to time, grossly intact for the purposes of this session. Can spell "WORLD" backwards correctly. Judgment and insight: Improved with guarded prognosis Impression: Bipolar disorder, unspecifiedlikely secondary to abrupt discontinuation of his antiseizure/mood stabilization medications Plan: -Continue with discharge today as patient has improved and stabilized psychiatrically and is not currently an imminent threat to himself and/or others. Patient will remain at chronically elevated risk for harm to self and/or others due to his impulsivity and history of polysubstance abuse. -Medications at discharge: Depakote ER 1000 mg by mouth at bedtime BuSpar 15 mg by mouth 3 times a day by mouth Keppra 1500 mg by mouth twice a day Zonisamide 100 mg by mouth daily -Patient has been tapered off Effexor and trazodone so as to minimize over activation and manic switch as well as medications that may contribute to lowering seizure threshold. -Lamictal has been discontinued due to the patient being abruptly stopped the medication. We will defer to his outpatient Psychiatry and/or Neurology provider for reinitiation of this medication. -Patient was counseled on the need for medication compliance and appropriate follow-up at mental health and also primary care for medical issues. Patient verbalized understanding and agreed. -Social work to arrange for and conduct family meeting to ensure safety upon discharge and answer any questions/concerns. Social work also to arrange for patients follow up appointments with [facility] for psychiatric care along with follow up with primary care provider. -Follow-up with his neurologist due to his admission for status epilepticus and his change in his antiseizure medications including discontinuation of Lamictal. Depakote level within therapeutic range. -Patient counseled on abstaining from recreational drugs and marijuana and alco hol. Was informed/educated on the adverse effects on their physical and mental health. Patient verbally agreed and understood. -Patient was instructed to return to the hospital or seek immediate medical care if their psychiatric or medical symptoms do worsen or reoccur. Vital Signs Temp 98.2 F 08/04/20 06:49 Pulse 81 08/04/20 06:49 Resp 16 08/04/20 06:49 BP 138/61 08/04/20 06:49 Pulse Ox 96 07/30/20 21:38 Allergies Allergy/AdvReac Type Severity Reaction Status Date / Time No Known Allergies Allergy Verified 07/30/20 21:04 Laboratory Results Sodium 137 mmol/L (137-145) 08/04/20 08:59 Potassium 5.0 mmol/L (3.5-5.1) 08/04/20 08:59 Chloride 100 mmol/L (98-107) 08/04/20 08:59 Carbon Dioxide 26 mmol/L (22-30) 08/04/20 08:59 Anion Gap 11 mmol/L 08/04/20 08:59 BUN 21 mg/dL (9-20) H 08/04/20 08:59 Creatinine 1.12 mg/dL (0.66-1.25) 08/04/20 08:59 Est GFR (CKD-EPI)AfAm 81 (>60 ml/min/1.73 sqM) 08/04/20 08:59 Est GFR (CKD-EPI)NonAf 70 (>60 ml/min/1.73 sqM) 08/04/20 08:59 Glucose 221 mg/dL (74-99) H 08/04/20 08:[address] Glu mg/dL 108 07/30/20 08:32 Hemoglobin A1c 5.4 % (4.0-6.0) 07/30/20 08:32 Calcium 8.9 mg/dL (8.4-10.2) 08/04/20 08:59 Total Bilirubin 0.5 mg/dL (0.2-1.3) 08/03/20 23:38 AST 94 U/L (17-59) H 08/03/20 23:38 ALT 74 U/L (4-49) H 08/03/20 23:38 Alkaline Phosphatase 76 U/L (38-126) 08/03/20 23:38 Ammonia 15 umol/L (<30) 08/03/20 13:55 Total Protein 6.9 g/dL (6.3-8.2) 08/03/20 23:38 Albumin 4.3 g/dL (3.5-5.0) 08/03/20 23:38 Triglycerides 40 mg/dL (<150) 07/30/20 08:32 Cholesterol 127 mg/dL (<200) 07/30/20 08:32 LDL Cholesterol, Calc 58 mg/dL (0-99) 07/30/20 08:32 HDL Cholesterol 61 mg/dL (40-60) H 07/30/20 08:32 TSH 3.520 mIU/L (0.465-4.680) 07/30/20 08:32 Valproic Acid 55.7 ug/mL 08/04/20 08:59 Patient Condition at Discharge: Stable Plan - Discharge Summary New Discharge Prescriptions: New Aspirin 81 mg PO DAILY 30 Days chew Divalproex ER [Depakote ER] 1,000 mg PO HS 30 Days tab.er.24h levETIRAcetam [Keppra] 1,500 mg PO BID 30 Days tab Zonisamide [Zonegran] 100 mg PO DAILY 30 Days cap Continue busPIRone HCL 15 mg PO TID 30 Days tab Famotidine 20 mg PO HS 30 Days tab Metoprolol Tartrate [Lopressor] 25 mg PO AC-BID 30 Days tab Montelukast [Singulair] 10 mg PO HS 30 Days tab Thiamine [Vitamin B-1] 100 mg PO BID-W/MEALS 30 Days #30 tab Discontinued levETIRAcetam [Keppra] 1,500 mg PO BID #60 tab traZODone HCL 100 mg PO HS PRN PRN Reason: Insomnia Zonisamide [Zonegran] 100 mg PO DAILY 30 Days #30 cap Venlafaxine HCl [Effexor XR] 225 mg PO DAILY Divalproex [Depakote] 250 mg PO TID Aspirin [Adult Low Dose Aspirin EC] 81 mg PO DAILY Losartan [Cozaar] 50 mg PO DAILY tab lamoTRIgine [LaMICtal] 200 mg PO BID tab Discharge Medication List Aspirin 81 mg PO DAILY 30 Days chew 08/03/20 [Rx] Divalproex ER [Depakote ER] 1,000 mg PO HS 30 Days tab.er.24h 08/03/20 [Rx] Famotidine 20 mg PO HS 30 Days tab 08/03/20 [Rx] Metoprolol Tartrate [Lopressor] 25 mg PO AC-BID 30 Days tab 08/03/20 [Rx] Montelukast [Singulair] 10 mg PO HS 30 Days tab 08/03/20 [Rx] Thiamine [Vitamin B-1] 100 mg PO BID-W/MEALS 30 Days #30 tab 08/03/20 [Rx] Zonisamide [Zonegran] 100 mg PO DAILY 30 Days cap 08/03/20 [Rx] busPIRone HCL 15 mg PO TID 30 Days tab 08/03/20 [Rx] levETIRAcetam [Keppra] 1,500 mg PO BID 30 Days tab 08/03/20 [Rx] Follow up Appointment(s)/Referral(s): Neuro, Raghu [Other] - 08/09/20 12:45 pm (Kar Singh [facility] [Outside] - 08/04/20 1:00 pm (08-09-20 @ 1:00 with Graciela Baldwin face to face at [facility] office 08-10-20 @ 9:[address] Mena at [facility] office by [employer] Video) Lucia Kc MD [Primary Care Provider] - 1 Week Patient Instructions/Handouts: Bipolar Disorder (DC) Activity/Diet/Wound Care/Special Instructions: Follow up with Primary Care Physican. Dr Sierra wants patient to have CBC, BMP in one week to follow up on Sodium and Potassium levels. Activity and diet as tolerated. Avoid the use of street drugs and alcohol. Take all medications as prescribed. When you are in need of refills on your m edications please contact your medical provider and/or outpatient psychiatrist to have this done. Please go to scheduled outpatient appointment for aftercare treatment. If symptoms return or become worse, call the crisis line at and/or go to the nearest emergency room for evaluation.
--- NOTE | 2020-08-04 19:03 | PN ---
PROGRESS NOTE DATE OF SERVICE: 08/04/2020 This 64-year-old gentleman admitted with bipolar and major depression is being closely monitored. Patient also has hyperkalemia. Yesterday medications were changed and the patient was also given Kayexalate. The patient improved significantly. No chest pain. No palpitations. No fever. PHYSICAL EXAMINATION: Alert and oriented x3. Pulse 81, blood pressure 138/61, respirations 16, temperature 98.2. HEENT: Conjunctivae normal. NECK: No jugular venous distention. CARDIOVASCULAR SYSTEM: S1, S2 muffled. RESPIRATORY SYSTEM: Breath sounds diminished at the bases. No rhonchi. No crackles. ABDOMEN: Soft, non-tender. LEGS: No edema. No swelling. NERVOUS SYSTEM: No focal deficit. LABS: Sodium 137 and potassium 5. ASSESSMENT: 1. Change in mental status, possibly bipolar. 2. Seizure disorder with multiple antiepileptic medications. 3. Hyperkalemia. 4. Hyponatremia. 5. Acute breakthrough seizures. 6. Status post fall and laceration of right forehead. 7. Scalp hematoma. 8. History of noncompliance with medication. 9. Chronic obstructive pulmonary disease. 10.Hypertension. 11.Gastroesophageal reflux disease. 12.Memory impairment. 13.History of diverticulosis. 14.History of tetrahydrocannabinol. 15.Previous history of smoking. RECOMMENDATIONS AND DISCUSSION: I recommend to continue current medications, continue with the monitoring, symptomatic treatment. Avoid Hyzaar and closely follow with primary physician in the outpatient setting. Repeat labs in the outpatient setting. Low-potassium diet. Further recommendations to follow. Follow up with Dr. Cunha after discharge. MMHARSHADL / DEBN: [id number] /
== END 2020-08-04 13:40 | disposition home or self-care (01) | DRG 885 ==
LOC: 3MHU 20:34
PROVIDERS: ADMIT Psychiatry & Neurology Psychiatry; ATTEND Psychiatry & Neurology Psychiatry
DX: F31.9 Bipolar disorder, unspecified (principal); E87.1 Hypo-osmolality and hyponatremia; R45.851 Suicidal ideations; G40.901 Epilepsy, unspecified, not intractable, with status epilepticus; I11.0 Hypertensive heart disease with heart failure; I50.9 Heart failure, unspecified; F01.50 Vascular dementia, unspecified severity, without behavioral disturbance, psychotic disturbance, mood disturbance, and anxiety; F20.9 Schizophrenia, unspecified; J44.9 Chronic obstructive pulmonary disease, unspecified; F44.81 Dissociative identity disorder; E03.9 Hypothyroidism, unspecified; E87.5 Hyperkalemia; G47.00 Insomnia, unspecified; K21.9 Gastro-esophageal reflux disease without esophagitis; L29.9 Pruritus, unspecified; S01.111A Laceration without foreign body of right eyelid and periocular area, initial encounter; K57.90 Diverticulosis of intestine, part unspecified, without perforation or abscess without bleeding; S01.81XA Laceration without foreign body of other part of head, initial encounter; R74.8 Abnormal levels of other serum enzymes; T50.996A Underdosing of other drugs, medicaments and biological substances, initial encounter; Z91.128 Patient's intentional underdosing of medication regimen for other reason; Z79.899 Other long term (current) drug therapy; Z87.891 Personal history of nicotine dependence; Z91.81 History of falling; Z87.828 Personal history of other (healed) physical injury and trauma; Z81.8 Family history of other mental and behavioral disorders; W01.0XXA Fall on same level from slipping, tripping and stumbling without subsequent striking against object, initial encounter
CPT/HCPCS: 80048; 80053; 80061; 80164; 80165; 82140; 83036; 84443; 93005

== ENCOUNTER 2020-09-04 23:01 | Observation (INO) | payer MEDICARE ==
[2020-09-04] MEDS ORDERED: SODIUM CHLORIDE 0.9% 1,000 ML IV STA (23:24)
[2020-09-05 00:12] LABS: Basophils % (A) 1 %; Eosinophils # (A) 0.1 k/uL (0-0.7); Eosinophils % (A) 2 %; HCT 38.4 % (39.0-53.0); HGB 13.3 gm/dL (13.0-17.5); Lymphocytes # (A) 1.2 k/uL (1.0-4.8); Lymphocytes % (A) 22 %; MCHC 34.6 g/dL (31.0-37.0); MCV 95.3 fL (80.0-100.0); Mean Platelet Volume 6.7; Monocytes # (A) 0.4 k/uL (0-1.0); Monocytes % (A) 7 %; Neutrophils # (A) 3.5 k/uL (1.3-7.7); Neutrophils % (A) 67 %; Platelet Count 197 k/uL (150-450); RBC 4.03 m/uL (4.30-5.90); RDW 12.2 % (11.5-15.5); WBC 5.3 k/uL (3.8-10.6)
[2020-09-05 00:23] LABS: Albumin 3.7 g/dL (3.5-5.0); Calcium 8.6 mg/dL (8.4-10.2); Potassium 4.8 mmol/L (3.5-5.1); Total Bilirubin 0.4 mg/dL (0.2-1.3)
[2020-09-05 00:28] LABS: Valproic Acid (Depakene) 39.8 ug/mL
[2020-09-05 01:07] LABS: Amphetamine Screen,Urine Not Detected (NotDetected); Barbiturate Screen,Urine Not Detected (NotDetected); Benzodiazepines Screen,Urine Not Detected (NotDetected); Cocaine Screen,Urine Not Detected (NotDetected); Methadone Screen, Urine Not Detected (NotDetected); Opiate Screen,Urine Not Detected (NotDetected); Oxycodone Screen, Urine Not Detected (NotDetected); Phencyclidine Screen,Urine Not Detected (NotDetected); Tricyclic Antidepressant,Urine Not Detected (NotDetected); Urn Cannabinoid Scrn Not Detected (NotDetected)
[2020-09-05] MEDS ORDERED: NALOXONE 0.4 MG/ML 1 ML VIAL IV PRN (01:32)
--- NOTE | 2020-09-05 01:33 | ED ---
Seizure HPI - General Source: patient, EMS Mode of arrival: EMS <Graciela Carroll - Last Filed: 09/05/20 02:23> <Weston Zarate - Last Filed: 09/09/20 23:49> - General Chief Complaint: Seizure Stated Complaint: Seizure Time Seen by Provider: 09/04/20 23:05 - History of Present Illness Initial Comments: 64-year-old male patient with past medical history significant for seizure disorder presents to the emergency department today for evaluation after having a seizure. Caregiver who is also guardian provided information to the EMS person hilda upon their arrival. States that he had approximately 32nd seizure. Denies sustaining any fall or injuries. [facility] for further evaluation. Upon arrival patient is quite pleasant, alert, but is unsure why he is here. He does not recall having a seizure. States he currently feels well. Denies any headache, blurred vision, double vision. Denies any pain to his body or injuries. Patient states he does have seizures but is unsure which medications he takes. He denies alcohol or drug use. Does have mental health history and takes psychotropic medications as well. Patient denies any recent rash, fever, chills, cough, shortness of breath, chest pain, abdominal pain, nausea, vomitin g, diarrhea, constipation, back pain, numbness, tingling, dizziness, weakness, hematuria, dysuria, urinary urgency, urinary frequency, headache, visual changes, or any other complaints. (Graciela Carroll) - Related Data Home Medications Medication Instructions Recorded Confirmed Levothyroxine Sodium [Synthroid] 75 mcg PO DAILY 09/05/20 09/05/20 Previous Rx's Medication Instructions Recorded Aspirin 81 mg PO DAILY 30 Days chew 08/03/20 Divalproex ER [Depakote ER] 1,000 mg PO HS 30 Days tab.er.24h 08/03/20 Famotidine 20 mg PO HS 30 Days tab 08/03/20 Metoprolol Tartrate [Lopressor] 25 mg PO AC-BID 30 Days tab 08/03/20 Montelukast [Singulair] 10 mg PO HS 30 Days tab 08/03/20 Thiamine [Vitamin B-1] 100 mg PO BID-W/MEALS 30 Days #30 08/03/20 tab Zonisamide [Zonegran] 100 mg PO DAILY 30 Days cap 08/03/20 busPIRone HCL 15 mg PO TID 30 Days tab 08/03/20 levETIRAcetam [Keppra] 1,500 mg PO BID 30 Days tab 08/03/20 Allergies Allergy/AdvReac Type Severity Reaction Status Date / Time No Known Allergies Allergy Verified 09/05/20 09:25 Review of Systems ROS Other: All systems not noted in ROS Statement are negative. <Graciela Carroll - Last Filed: 09/05/20 02:23> ROS Other: All systems not noted in ROS Statement are negative. <Weston Zarate - Last Filed: 09/09/20 23:49> ROS Statement: Those systems with pertinent positive or pertinent negative responses have been documented in the HPI. Past Medical History Past Medical History: Chest Pain / Angina, Heart Failure, COPD, GERD/Reflux, Hypertension, Seizure Disorder, Thyroid Disorder Additional Past Medical History / Comment(s): falls,bronchitis,Memory impairment, legally incapacitated, hypothyroid, small hiatal hernia, diverticulosis History of Any Multi-Drug Resistant Organisms: None Reported Past Surgical History: Hernia Repair, Joint Replacement, Orthopedic Surgery Additional Past Surgical History / Comment(s): 08/2017 EGGD/colonoscopy, prior colonoscopy, umbilical hernia repair, L total knee, R partial knee replacement, R lower leg fracture with ORIF (hardware in place), ERCP, bilateral knee arthroscopies. Past Anesthesia/Blood Transfusion Reactions: No Reported Reaction Past Psychological History: Anxiety, Bipolar, Depression, Schizophrenia Smoking Status: Current some day smoker Past Alcohol Use History: Occasional Past Drug Use History: Marijuana - Past Family History Father Family Medical History: Cancer, Coronary Artery Disease (CAD), Pneumonia Additional Family Medical History / Comment(s): Father had a pacemaker. He of pneumonia. Mother Family Medical History: Coronary Artery Disease (CAD), CVA/TIA <Graciela Carroll - Last Filed: 09/05/20 02:23> General Exam General appearance: alert, in no apparent distress, other (This is a well- developed, well-nourished adult male patient in no acute distress. Vital signs upon presentation are temperature 98.2F, pulse 80, respirations 16, blood pressure 136/78, pulse ox 97% on room air.) Eye exam: Present: normal appearance, PERRL, EOMI. Absent: scleral icterus, conjunctival injection, periorbital swelling ENT exam: Present: normal exam, normal oropharynx, mucous membranes moist Respiratory exam: Present: normal lung sounds bilaterally. Absent: respiratory distress, wheezes, rales, rhonchi, stridor Cardiovascular Exam: Present: regular rate, normal rhythm, normal heart sounds. Absent: systolic murmur, diastolic murmur, rubs, gallop, clicks GI/Abdominal exam: Present: soft, normal bowel sounds. Absent: distended, tenderness, guarding, rebound, rigid Neurological exam: Present: alert, oriented X3, CN II-XII intact Psychiatric exam: Present: normal affect, normal mood Skin exam: Present: warm, dry, intact, normal color. Absent: rash <Graciela Carroll - Last Filed: 09/05/20 02:23> Course Vital Signs 09/04/20 09/05/20 09/05/20 23:02 00:45 01:32 EST Temperature 98.2 F 98.4 F 98.3 F Pulse Rate 80 82 65 Respiratory 16 16 18 Rate Blood Pressure 136/78 119/74 125/76 O2 Sat by Pulse 97 98 96 Oximetry 09/05/20 02:00 Temperature 98.2 F Pulse Rate 78 Respiratory 16 Rate Blood Pressure 122/82 O2 Sat by Pulse 98 Oximetry Medical Decision Making - Lab Data Result diagrams: 09/04/20 23:44 09/04/20 23:44 <Graciela Carroll - Last Filed: 09/05/20 02:23> - Lab Data Result diagrams: 09/06/20 06:25 09/06/20 06:25 <Weston Zarate - Last Filed: 09/09/20 23:49> - Medical Decision Making 64 year-old female patient presents to the emergency department for evaluation after having a seizure. Patient has a history of seizures and takes Depakote and Keppra. Physical examination is unremarkable. He is neurologically intact with no focal deficits. No seizure activity on the emergency department. Labs reviewed and did reveal decreased sodium level at 129. Patient states that he has been urinating frequently and has been drinking a lot of water. It is felt that this could be related to his antiepileptic medication. We will admit to the hospital with sodium chloride replacement and for further evaluation and monitoring. We did give a loading dose of Depakote because his level was subth erapeutic. Patient is agreeable this plan. (Graciela Carroll) I saw this patient in conjunction with the physician assistant purchasing manager. I performed independent history and physical exam. Agree with case management. (Weston Zarate) - Lab Data Lab Results 09/04/20 09/04/20 09/04/20 Range/Units 23:44 23:44 23:44 WBC 5.3 (3.8-10.6) k/uL RBC 4.03 L (4.30-5.90) m/uL Hgb 13.3 (13.0-17.5) gm/dL Hct 38.4 L (39.0-53.0) % MCV 95.3 (80.0-100.0) fL MCH 33.0 (25.0-35.0) pg MCHC 34.6 (31.0-37.0) g/dL RDW 12.2 (11.5-15.5) % Plt Count 197 (150-450) k/uL Neutrophils % 67 % Lymphocytes % 22 % Monocytes % 7 % Eosinophils % 2 % Basophils % 1 % Neutrophils # 3.5 (1.3-7.7) k/uL Lymphocytes # 1.2 (1.0-4.8) k/uL Monocytes # 0.4 (0-1.0) k/uL Eosinophils # 0.1 (0-0.7) k/uL Basophils # 0.0 (0-0.2) k/uL Sodium 126 L (137-145) mmol/L Potassium 4.8 (3.5-5.1) mmol/L Chloride 93 L (98-107) mmol/L Carbon Dioxide 24 (22-30) mmol/L Anion Gap 9 mmol/L BUN 10 (9-20) mg/dL Creatinine 1.07 (0.66-1.25) mg/dL Est GFR (CKD-EPI)AfAm 86 (>60 ml/min/1.73 sqM) Est GFR (CKD-EPI)NonAf 75 (>60 ml/min/1.73 sqM) Glucose 95 (74-99) mg/dL POC Glucose (mg/dL) (75-99) mg/dL POC Glu Guest Relations Officer ID Calcium 8.6 (8.4-10.2) mg/dL Total Bilirubin 0.4 (0.2-1.3) mg/dL AST 23 (17-59) U/L ALT 12 (4-49) U/L Alkaline Phosphatase 47 (38-126) U/L Total Protein 6.0 L (6.3-8.2) g/dL Albumin 3.7 (3.5-5.0) g/dL Urine Color Urine Appearance (Clear) Urine pH (5.0-8.0) Ur Specific Ivel (1.001-1.035) Urine Protein (Negative) Urine Glucose (UA) (Negative) Urine Ketones (Negative) Urine Blood (Negative) Urine Nitrite (Negative) Urine Bilirubin (Negative) Urine Urobilinogen (<2.0) mg/dL Ur Leukocyte Esterase (Negative) Valproic Acid 39.8 ug/mL Levetiracetam 16.0 (3.0-60.0) ug/mL 09/05/20 09/05/20 Range/Units 01:35 EST 01:39 EST WBC (3.8-10.6) k/uL RBC (4.30-5.90) m/uL Hgb (13.0-17.5) gm/dL Hct (39.0-53.0) % MCV (80.0-100.0) fL MCH (25.0-35.0) pg MCHC (31.0-37.0) g/dL RDW (11.5-15.5) % Plt Count (150-450) k/uL Neutrophils % % Lymphocytes % % Monocytes % % Eosinophils % % Basophils % % Neutrophils # (1.3-7.7) k/uL Lymphocytes # (1.0-4.8) k/uL Monocytes # (0-1.0) k/uL Eosinophils # (0-0.7) k/uL Basophils # (0-0.2) k/uL Sodium (137-145) mmol/L Potassium (3.5-5.1) mmol/L Chloride (98-107) mmol/L Carbon Dioxide (22-30) mmol/L Anion Gap mmol/L BUN (9-20) mg/dL Creatinine (0.66-1.25) mg/dL Est GFR (CKD-EPI)AfAm (>60 ml/min/1.73 sqM) Est GFR (CKD-EPI)NonAf (>60 ml/min/1.73 sqM) Glucose (74-99) mg/dL POC Glucose (mg/dL) 116 H (75-99) mg/dL POC Glu Guest Relations Officer ID Alee Vázquez Calcium (8.4-10.2) mg/dL Total Bilirubin (0.2-1.3) mg/dL AST (17-59) U/L ALT (4-49) U/L Alkaline Phosphatase (38-126) U/L Total Protein (6.3-8.2) g/dL Albumin (3.5-5.0) g/dL Urine Color Light Yellow Urine Appearance Clear (Clear) Urine pH 7.0 (5.0-8.0) Ur Specific Ivel 1.006 (1.001-1.035) Urine Protein Negative (Negative) Urine Glucose (UA) Negative (Negative) Urine Ketones Negative (Negative) Urine Blood Negative (Negative) Urine Nitrite Negative (Negative) Urine Bilirubin Negative (Negative) Urine Urobilinogen <2.0 (<2.0) mg/dL Ur Leukocyte Esterase Negative (Negative) Valproic Acid ug/mL Levetiracetam (3.0-60.0) ug/mL Disposition Decision to Admit Reason: Admit from EC Decision Date: 09/05/20 Decision Time: 01:33 <Graciela Carroll - Last Filed: 09/05/20 02:23> <Weston Zarate - Last Filed: 09/09/20 23:49> Clinical Impression: Seizure Disposition: ADMITTED IP TO THIS [facility] Condition: Serious
[2020-09-05] MEDS: SODIUM CHLORIDE 0.9% 1,000 ML IV SCH ×2 (01:46→03:02)
[2020-09-05 01:57] LABS: Appearance,Urine Clear (Clear); Bilirubin,Urine Negative (Negative); Blood,Urine Negative (Negative); Color,Urine Light Yellow; Glucose,Urine (UA) Negative (Negative); Ketones,Urine Negative (Negative); Leukocyte Esterase,Urine Negative (Negative); Nitrite,Urine Negative (Negative); Protein,Urine Negative (Negative); Specific Gravity,Urine 1.006 (1.001-1.035); Urobilinogen,Urine <2.0 mg/dL (<2.0)
[2020-09-05 02:00] LABS: Glucose,Whole Blood 116 mg/dL (75-99)
[2020-09-05] MEDS ORDERED: DIVALPROEX 500 MG TABLET.DR PO STA (02:23)
[2020-09-05] MEDS: LEVOTHYROXINE 75 MCG TAB PO SCH (11:10)
[2020-09-05] MEDS: ASPIRIN 81 MG PO SCH (11:27)
[2020-09-05] MEDS: ZONISAMIDE 100 MG CAP PO SCH (11:27)
[2020-09-05 12:00] LABS: African American GFR (CKD) 88 (>60 ml/min/1.73 sqM); Anion Gap 3 mmol/L; Blood Urea Nitrogen 13 mg/dL (9-20); Calcium 8.6 mg/dL (8.4-10.2); Carbon Dioxide 28 mmol/L (22-30); Chloride 103 mmol/L (98-107); Glucose 80 mg/dL (74-99); Non-African American GFR(CKD) 76 (>60 ml/min/1.73 sqM); Potassium 5.3 mmol/L (3.5-5.1); Sodium 134 mmol/L (137-145)
[2020-09-05] MEDS: busPIRone HCl 5 MG TAB PO SCH ×2 (16:44→21:57)
[2020-09-05] MEDS: THIAMINE 100 MG TAB PO SCH (16:44)
[2020-09-05] MEDS: HEPARIN SODIUM,PORCINE 5,000 UNIT/ML 1 ML VIAL SQ SCH ×2 (16:45→23:57)
[2020-09-05] MEDS ORDERED: METOPROLOL TARTRATE 25 MG TAB PO SCH (17:30)
[2020-09-05] MEDS ORDERED: MONTELUKAST 10 MG TAB PO SCH (21:00)
[2020-09-05] MEDS ORDERED: DIVALPROEX ER 500 MG TAB.ER.24H PO SCH (21:00)
[2020-09-05] MEDS ORDERED: FAMOTIDINE 20 MG TAB PO SCH (21:00)
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
[2020-09-06] MEDS: SODIUM CHLORIDE 0.9% 1,000 ML IV SCH (05:20)
[2020-09-06] MEDS: LEVOTHYROXINE 75 MCG TAB PO SCH (05:21)
[2020-09-06 07:31] LABS: Basophils # (A) 0.1 k/uL (0-0.2); Basophils % (A) 1 %; Eosinophils # (A) 0.1 k/uL (0-0.7); Eosinophils % (A) 2 %; HCT 43.5 % (39.0-53.0); HGB 14.2 gm/dL (13.0-17.5); Lymphocytes # (A) 1.8 k/uL (1.0-4.8); Lymphocytes % (A) 35 %; MCH 32.6 pg (25.0-35.0); MCHC 32.6 g/dL (31.0-37.0); MCV 99.9 fL (80.0-100.0); Mean Platelet Volume 7.1; Monocytes # (A) 0.4 k/uL (0-1.0); Monocytes % (A) 8 %; Neutrophils # (A) 2.7 k/uL (1.3-7.7); Neutrophils % (A) 52 %; Platelet Count 213 k/uL (150-450); RBC 4.36 m/uL (4.30-5.90); RDW 12.5 % (11.5-15.5); WBC 5.2 k/uL (3.8-10.6)
[2020-09-06 07:36] LABS: ALT 11 U/L (4-49); AST 23 U/L (17-59); African American GFR (CKD) >90 (>60 ml/min/1.73 sqM); Alkaline Phosphatase 65 U/L (38-126); Anion Gap 9 mmol/L; Blood Urea Nitrogen 15 mg/dL (9-20); Carbon Dioxide 24 mmol/L (22-30); Chloride 103 mmol/L (98-107); Glucose 87 mg/dL (74-99); Non-African American GFR(CKD) 86 (>60 ml/min/1.73 sqM); Potassium 4.5 mmol/L (3.5-5.1); Sodium 136 mmol/L (137-145); Total Bilirubin 0.4 mg/dL (0.2-1.3); Total Protein 6.6 g/dL (6.3-8.2)
[2020-09-06 07:53] VITALS: BP 146/86; PULSE 61; RESP 16; TEMP 98
[2020-09-06] MEDS: busPIRone HCl 5 MG TAB PO SCH (08:43)
[2020-09-06] MEDS: ASPIRIN 81 MG PO SCH (08:43)
[2020-09-06] MEDS: THIAMINE 100 MG TAB PO SCH (08:43)
[2020-09-06] MEDS: HEPARIN SODIUM,PORCINE 5,000 UNIT/ML 1 ML VIAL SQ SCH (08:43)
[2020-09-06] MEDS: ZONISAMIDE 100 MG CAP PO SCH (08:44)
== END 2020-09-06 16:09 | disposition home health service (06) ==
LOC: EC 23:01 → 6NMEDSUR 09-05 02:02 → 3NCARDOBS 09-05 15:21 → 4SSUR 09-05 22:17
PROVIDERS: ADMIT Hospitalist; ATTEND Hospitalist
DX: G40.909 Epilepsy, unspecified, not intractable, without status epilepticus (principal); E87.1 Hypo-osmolality and hyponatremia; J44.9 Chronic obstructive pulmonary disease, unspecified; F31.9 Bipolar disorder, unspecified; F41.9 Anxiety disorder, unspecified; F20.9 Schizophrenia, unspecified; I11.0 Hypertensive heart disease with heart failure; I50.9 Heart failure, unspecified; K21.9 Gastro-esophageal reflux disease without esophagitis; R41.3 Other amnesia; K57.90 Diverticulosis of intestine, part unspecified, without perforation or abscess without bleeding; R89.2 Abnormal level of other drugs, medicaments and biological substances in specimens from other organs, systems and tissues; E03.9 Hypothyroidism, unspecified; F17.200 Nicotine dependence, unspecified, uncomplicated; Z91.14 Patient's other noncompliance with medication regimen; Z79.890 Hormone replacement therapy; Z91.81 History of falling; Z87.09 Personal history of other diseases of the respiratory system; Z65.3 Problems related to other legal circumstances; Z87.19 Personal history of other diseases of the digestive system; Z98.890 Other specified postprocedural states; Z96.653 Presence of artificial knee joint, bilateral; Z87.81 Personal history of (healed) traumatic fracture; Z87.820 Personal history of traumatic brain injury; Z79.82 Long term (current) use of aspirin; Z79.899 Other long term (current) drug therapy; Z80.9 Family history of malignant neoplasm, unspecified; Z82.49 Family history of ischemic heart disease and other diseases of the circulatory system; Z82.5 Family history of asthma and other chronic lower respiratory diseases; Z82.3 Family history of stroke
CPT/HCPCS: 96372 ×2; 96360; 99285; 36415; 93005; 80164; 80053 ×2; 80177; 85025 ×2; 81003; 80306; G0378 ×4; J1644 ×2; 80048

== ENCOUNTER → 2020-09-09 | Outpatient (CLI) | payer MEDICARE | END | disposition home or self-care (01) | LOC: LABWHC1 13:17 | PROVIDERS: ATTEND Physician Assistant | DX: Z51.81 Encounter for therapeutic drug level monitoring (principal) | CPT/HCPCS: 36415; 80164 ==

== ENCOUNTER 2020-12-01 04:42 | Emergency (ER) | payer MEDICARE ==
[2020-12-01 05:43] LABS: Basophils % (A) 1 %; Eosinophils # (A) 0.1 k/uL (0-0.7); Eosinophils % (A) 1 %; HCT 38.7 % (39.0-53.0); HGB 13.3 gm/dL (13.0-17.5); Lymphocytes # (A) 1.2 k/uL (1.0-4.8); Lymphocytes % (A) 16 %; MCH 31.5 pg (25.0-35.0); MCHC 34.3 g/dL (31.0-37.0); MCV 91.9 fL (80.0-100.0); Mean Platelet Volume 6.8; Monocytes # (A) 0.6 k/uL (0-1.0); Monocytes % (A) 8 %; Neutrophils # (A) 5.2 k/uL (1.3-7.7); Neutrophils % (A) 73 %; Platelet Count 267 k/uL (150-450); RBC 4.21 m/uL (4.30-5.90); RDW 13.1 % (11.5-15.5); WBC 7.2 k/uL (3.8-10.6)
[2020-12-01 05:51] LABS: Appearance,Urine Cloudy (Clear); Bilirubin,Urine Negative (Negative); Color,Urine Yellow; Glucose,Urine (UA) Negative (Negative); Ketones,Urine Negative (Negative); Protein,Urine 1+ (Negative); Specific Gravity,Urine 1.008 (1.001-1.035)
[2020-12-01 05:52] LABS: Bacteria,Urine Rare /hpf; Blood,Urine Negative (Negative); Hyaline Casts,Urine 4 /lpf (0-2); Leukocyte Esterase,Urine Negative (Negative); Mucus,Urine Rare /hpf; Nitrite,Urine Negative (Negative); RBC,Urine 2 /hpf (0-5); Sperm,Urine Few /hpf; Urobilinogen,Urine <2.0 mg/dL (<2.0); WBC,Urine 2 /hpf (0-5)
[2020-12-01 05:53] LABS: Albumin 4.4 g/dL (3.5-5.0); Calcium 9.2 mg/dL (8.4-10.2); Potassium 3.9 mmol/L (3.5-5.1); Total Bilirubin 0.5 mg/dL (0.2-1.3); Total Protein 6.5 g/dL (6.3-8.2)
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
[2020-12-01] MEDS ORDERED: DIVALPROEX ER 500 MG TAB.ER.24H PO STA (08:05)
[2020-12-01] MEDS ORDERED: levETIRAcetam 500 MG TAB PO STA (08:06)
[2020-12-01] MEDS ORDERED: ZONISAMIDE 100 MG CAP PO STA (08:06)
[2020-12-01 08:33] VITALS: BP 151/89; PULSE 84; RESP 16; TEMP 98
[2020-12-02 08:41] LABS: Levetiracetam (Keppra) 2.8 ug/mL (3.0-60.0)
== END 2020-12-01 09:20 | disposition home or self-care (01) ==
LOC: EC 04:42
DX: G40.909 Epilepsy, unspecified, not intractable, without status epilepticus (principal); S50.311A Abrasion of right elbow, initial encounter; E03.9 Hypothyroidism, unspecified; I11.0 Hypertensive heart disease with heart failure; I50.9 Heart failure, unspecified; J44.9 Chronic obstructive pulmonary disease, unspecified; K21.9 Gastro-esophageal reflux disease without esophagitis; F41.9 Anxiety disorder, unspecified; F17.200 Nicotine dependence, unspecified, uncomplicated; F31.9 Bipolar disorder, unspecified; F20.9 Schizophrenia, unspecified; Z79.899 Other long term (current) drug therapy; Z79.82 Long term (current) use of aspirin; Z79.890 Hormone replacement therapy; X58.XXXA Exposure to other specified factors, initial encounter
CPT/HCPCS: 36415; 80053; 80165; 80177; 81001; 85025; 99284

== ENCOUNTER 2020-12-02 15:56 | Emergency (ER) | payer MEDICARE ==
[2020-12-02 16:26] VITALS: RESP 18; TEMP 98
--- NOTE | 2020-12-02 16:51 | ED ---
General Adult HPI - General Stated complaint: Seizure Time Seen by Provider: 12/02/20 16:10 Source: EMS Mode of arrival: EMS Limitations: language barrier - History of Present Illness Initial comments: Patient is a 65-year-old male past medical history of seizure disorder, head tr auma with memory impairment who presents emergency department due to seizure activity. The patient lives next to his daughter who is also his guardian. She witnessed the patient having a seizure on her security camera. She attempted to give the patient 5 mg of Versed intranasally. She was unable to get the seizure to stop and therefore called EMS. An additional 5 mg of Versed was given IM via EMS. They were able to get the seizure stopped. Patient was seen in the emergency department yesterday for similar complaint. EMS report that the patient has been out of his seizure medications. Patient arrives to the emergency department and is post ictal. Bruising noted to the patient's chest and right elbow however the remainder of the HPI is limited as patient history - Related Data Home Medications Medication Instructions Recorded Confirmed Levothyroxine Sodium [Synthroid] 75 mcg PO DAILY 09/05/20 12/02/20 Aspirin 81 mg PO HS 12/02/20 12/02/20 Divalproex Sodium [Depakote] 500 mg PO BID 12/02/20 12/02/20 Metoprolol Tartrate [Lopressor] 25 mg PO BID-W/MEALS 12/02/20 12/02/20 Venlafaxine HCl ER [Effexor Xr] 225 mg PO DAILY 12/02/20 12/02/20 lamoTRIgine [LaMICtal] 300 mg PO BID 12/02/20 12/02/20 traZODone HCL 100 mg PO HS 12/02/20 12/02/20 Previous Rx's Medication Instructions Recorded Famotidine 20 mg PO HS 30 Days tab 08/03/20 Montelukast [Singulair] 10 mg PO HS 30 Days tab 08/03/20 Zonisamide [Zonegran] 100 mg PO DAILY 30 Days cap 08/03/20 busPIRone HCL 15 mg PO TID 30 Days tab 08/03/20 levETIRAcetam [Keppra] 1,500 mg PO BID 30 Days tab 08/03/20 Allergies Allergy/AdvReac Type Severity Reaction Status Date / Time No Known Allergies Allergy Verified 12/02/20 16:06 Review of Systems ROS Statement: Those systems with pertinent positive or pertinent negative responses have been documented in the HPI. ROS Other: All systems not noted in ROS Statement are negative. Past Medical History Past Medical History: Chest Pain / Angina, Heart Failure, COPD, GERD/Reflux, Hypertension, Seizure Disorder, Thyroid Disorder Additional Past Medical History / Comment(s): falls,bronchitis,Memory impairment, legally incapacitated, hypothyroid, small hiatal hernia, diverticulosis History of Any Multi-Drug Resistant Organisms: None Reported Past Surgical History: Hernia Repair, Joint Replacement, Orthopedic Surgery Additional Past Surgical History / Comment(s): 08/2017 EGGD/colonoscopy, prior colonoscopy, umbilical hernia repair, L total knee, R partial knee replacement, R lower leg fracture with ORIF (hardware in place), ERCP, bilateral knee arthroscopies. Past Anesthesia/Blood Transfusion Reactions: No Reported Reaction Past Psychological History: Anxiety, Bipolar, Depression, Schizophrenia Smoking Status: Current some day smoker Past Alcohol Use History: Occasional Past Drug Use History: Marijuana - Past Family History Father Family Medical History: Cancer, Coronary Artery Disease (CAD), Pneumonia Additional Family Medical History / Comment(s): Father had a pacemaker. He of pneumonia. Mother Family Medical History: Coronary Artery Disease (CAD), CVA/TIA General Exam Limitations: language barrier General appearance: alert, in no apparent distress Head exam: Present: atraumatic, normocephalic, normal inspection Eye exam: Present: normal appearance, PERRL, EOMI. Absent: scleral icterus, conjunctival injection, periorbital swelling ENT exam: Present: normal exam, mucous membranes moist Neck exam: Present: normal inspection. Absent: tenderness, meningismus, lymphadenopathy Respiratory exam: Present: normal lung sounds bilaterally. Absent: respiratory distress, wheezes, rales, rhonchi, stridor Cardiovascular Exam: Present: regular rate, normal rhythm, normal heart sounds. Absent: systolic murmur, diastolic murmur, rubs, gallop, clicks GI/Abdominal exam: Present: soft, normal bowel sounds. Absent: distended, tenderness, guarding, rebound, rigid Extremities exam: Present: full ROM, normal capillary refill, other (ecchymosis over the right elbow and left anterior chest wall). Absent: tenderness, pedal edema, joint swelling, calf tenderness Back exam: Present: normal inspection Neurological exam: Present: alert, oriented X3, CN II-XII intact Psychiatric exam: Present: normal affect, normal mood Skin exam: Present: warm, dry, intact, normal color. Absent: rash Course Vital Signs 12/02/20 12/02/20 16:06 17:21 Temperature 98 F Pulse Rate 92 103 H Respiratory 18 18 Rate Blood Pressure 156/106 167/97 O2 Sat by Pulse 97 95 Oximetry EKG Findings - EKG Comments: EKG Findings:: EKG demonstrates normal sinus rhythm with a ventricular rate of 69. DE interval 154. QRS 116. QTC of 456. No acute ST segment elevations or depressions concerning for ischemic changes Medical Decision Making - Medical Decision Making Upon arrival patient was placed into room 2. Thorough physical exam was performed. I did review the patient's medical chart. We did speak with the patient's daughter who states that he does have prescriptions at the pharmacy that she is awaiting to picker/puller tomorrow. Patient did not take his medications today. I did complete laboratory studies and a CT of the patient's brain as he cannot provide any history. X-rays performed patient's right elbow and chest due to his notable external signs of trauma. Laboratory studies are remarkable for a sodium of 131. Valproic acid is 23.9. CT of the patient's brain demonstrates no acute findings. Chest and elbow x-ray demonstrate no acute fractures. The patient is observed in the emergency department for 3 hours. He does become arousable and has no further seizure-like activity. He is able to provide a history and states that he sustained his injuries to his right elbow yesterday during a seizure and not today. We do confirm with the patient's daughter that he will be getting his prescriptions tomorrow. I did give him his seizure medications for today. If there is any issue with obtaining the medications they can come back to the emergency room for prescriptions. Guardian and patient understood this. Patient was discharged home in stable condition - Lab Data Result diagrams: 12/02/20 17:20 12/02/20 17:20 Lab Results 12/02/20 12/02/20 12/02/20 Range/Units 17:20 17:20 18:18 WBC 10.6 (3.8-10.6) k/uL RBC 3.78 L (4.30-5.90) m/uL Hgb 12.4 L (13.0-17.5) gm/dL Hct 35.1 L (39.0-53.0) % MCV 92.7 (80.0-100.0) fL MCH 32.7 (25.0-35.0) pg MCHC 35.3 (31.0-37.0) g/dL RDW 13.3 (11.5-15.5) % Plt Count 202 (150-450) k/uL MPV 6.8 Neutrophils % 84 % Lymphocytes % 8 % Monocytes % 5 % Eosinophils % 2 % Basophils % 1 % Neutrophils # 8.9 H (1.3-7.7) k/uL Lymphocytes # 0.8 L (1.0-4.8) k/uL Monocytes # 0.5 (0-1.0) k/uL Eosinophils # 0.2 (0-0.7) k/uL Basophils # 0.1 (0-0.2) k/uL Sodium 131 L (137-145) mmol/L Potassium 4.3 (3.5-5.1) mmol/L Chloride 97 L (98-107) mmol/L Carbon Dioxide 25 (22-30) mmol/L Anion Gap 9 mmol/L BUN 8 L (9-20) mg/dL Creatinine 0.95 (0.66-1.25) mg/dL Est GFR (CKD-EPI)AfAm >90 (>60 ml/min/1.73 sqM) Est GFR (CKD-EPI)NonAf 85 (>60 ml/min/1.73 sqM) Glucose 87 (74-99) mg/dL Calcium 8.9 (8.4-10.2) mg/dL Total Bilirubin 0.7 (0.2-1.3) mg/dL AST 54 (17-59) U/L ALT 20 (4-49) U/L Alkaline Phosphatase 48 (38-126) U/L Total Protein 6.2 L (6.3-8.2) g/dL Albumin 3.9 (3.5-5.0) g/dL TSH 1.260 (0.465-4.680) mIU/L Urine Opiates Screen Not Detected (NotDetected) Ur Oxycodone Screen Not Detected (NotDetected) Urine Methadone Screen Not Detected (NotDetected) Ur Propoxyphene Screen Not Detected (NotDetected) Ur Barbiturates Screen Not Detected (NotDetected) Valproic Acid 23.9 ug/mL U Tricyclic Antidepress Not Detected (NotDetected) Ur Phencyclidine Scrn Not Detected (NotDetected) Ur Amphetamines Screen Not Detected (NotDetected) U Methamphetamines Scrn Not Detected (NotDetected) U Benzodiazepines Scrn Not Detected (NotDetected) Urine Cocaine Screen Not Detected (NotDetected) U Marijuana (THC) Screen Not Detected (NotDetected) Serum Alcohol <10 mg/dL Disposition Clinical Impression: Breakthrough seizure Disposition: HOME SELF-CARE Condition: Stable Instructions (If sedation given, give patient instructions): Recurrent Seizures in Adults (ED) Additional Instructions: Your daughter is picking up your meds tomorrow. Take them as directed. Return to the ED for any new or worsening symptoms. Is patient prescribed a controlled substance at d/c from ED?: No Referrals: Lucia Kc MD [Primary Care Provider] - 1-2 days Time of Disposition: 18:49
[2020-12-02 17:22] VITALS: BP 167/97; PULSE 103
[2020-12-02 17:33] LABS: Basophils # (A) 0.1 k/uL (0-0.2); Basophils % (A) 1 %; Eosinophils # (A) 0.2 k/uL (0-0.7); Eosinophils % (A) 2 %; HCT 35.1 % (39.0-53.0); HGB 12.4 gm/dL (13.0-17.5); Lymphocytes # (A) 0.8 k/uL (1.0-4.8); Lymphocytes % (A) 8 %; MCH 32.7 pg (25.0-35.0); MCHC 35.3 g/dL (31.0-37.0); MCV 92.7 fL (80.0-100.0); Mean Platelet Volume 6.8; Monocytes # (A) 0.5 k/uL (0-1.0); Monocytes % (A) 5 %; Neutrophils # (A) 8.9 k/uL (1.3-7.7); Neutrophils % (A) 84 %; Platelet Count 202 k/uL (150-450); RBC 3.78 m/uL (4.30-5.90); RDW 13.3 % (11.5-15.5); WBC 10.6 k/uL (3.8-10.6)
[2020-12-02 17:42] LABS: ALT 20 U/L (4-49); AST 54 U/L (17-59); African American GFR (CKD) >90 (>60 ml/min/1.73 sqM); Albumin 3.9 g/dL (3.5-5.0); Alcohol <10 mg/dL; Alkaline Phosphatase 48 U/L (38-126); Anion Gap 9 mmol/L; Blood Urea Nitrogen 8 mg/dL (9-20); Calcium 8.9 mg/dL (8.4-10.2); Carbon Dioxide 25 mmol/L (22-30); Chloride 97 mmol/L (98-107); Glucose 87 mg/dL (74-99); Non-African American GFR(CKD) 85 (>60 ml/min/1.73 sqM); Potassium 4.3 mmol/L (3.5-5.1); Sodium 131 mmol/L (137-145); Total Bilirubin 0.7 mg/dL (0.2-1.3); Total Protein 6.2 g/dL (6.3-8.2)
[2020-12-02 17:47] LABS: Valproic Acid (Depakene) 23.9 ug/mL
--- NOTE | 2020-12-02 18:08 | CT ---
EXAMINATION: CT brain wo con DATE AND TIME: 12/02/2020 5:47 PM CLINICAL INDICATION: PHH; seizure activity TECHNIQUE: Standard departmental protocol DLP: 1114.4 mGy-cm COMPARISON: 07/29/2020 FINDINGS: The calvarium is intact. There is no intracranial hemorrhage. There is no intracranial mass or mass effect. No definite new intra-axial or extra-axial attenuation defect. The paranasal sinuses, middle ear cavities, and mastoid sinus air cells are clear. The orbits are unremarkable. IMPRESSION: NO ACUTE PROCESS.
--- NOTE | 2020-12-02 18:10 | XR ---
EXAMINATION: XR chest 3V DATE AND TIME: 12/02/2020 5:35 PM CLINICAL INDICATION: PHH; seizure TECHNIQUE: 2 AP and a lateral view COMPARISON: 07/23/2020 FINDINGS: The lungs are clear. The pleural spaces are negative. The cardiac silhouette is not enlarged. The remainder of the mediastinal silhouette is unremarkable. The skeletal structures and soft tissues are negative for acute findings. IMPRESSION: NO ACUTE PROCESS.
--- NOTE | 2020-12-02 18:11 | XR ---
PROCEDURE: XR elbow complete RT - 3V DATE AND TIME: 12/02/2020 5:37 PM CLINICAL INDICATION: PHH; seizure TECHNIQUE: Department protocol COMPARISON: None FINDINGS: There is soft tissue swelling posteriorly, but there is no evidence of fracture or malalign ment. Mild scattered degenerative joint changes are appreciated. IMPRESSION: Negative for fracture/malalignment.
[2020-12-02] MEDS ORDERED: DIVALPROEX 500 MG TABLET.DR PO STA (18:34)
[2020-12-02] MEDS ORDERED: ZONISAMIDE 100 MG CAP PO STA (18:34)
[2020-12-02] MEDS ORDERED: lamoTRIgine 100 MG TAB PO STA (18:34)
[2020-12-02] MEDS ORDERED: ACETAMINOPHEN TAB 500 MG TAB PO STA (18:40)
[2020-12-02 18:50] LABS: Amphetamine Screen,Urine Not Detected (NotDetected); Barbiturate Screen,Urine Not Detected (NotDetected); Benzodiazepines Screen,Urine Not Detected (NotDetected); Cocaine Screen,Urine Not Detected (NotDetected); Methadone Screen, Urine Not Detected (NotDetected); Opiate Screen,Urine Not Detected (NotDetected); Oxycodone Screen, Urine Not Detected (NotDetected); Phencyclidine Screen,Urine Not Detected (NotDetected); Tricyclic Antidepressant,Urine Not Detected (NotDetected); Urn Cannabinoid Scrn Not Detected (NotDetected)
== END 2020-12-02 20:11 | disposition home or self-care (01) ==
LOC: EC 15:56
DX: G40.909 Epilepsy, unspecified, not intractable, without status epilepticus (principal); I11.0 Hypertensive heart disease with heart failure; I50.9 Heart failure, unspecified; E03.9 Hypothyroidism, unspecified; F41.9 Anxiety disorder, unspecified; F31.9 Bipolar disorder, unspecified; F20.9 Schizophrenia, unspecified; F17.200 Nicotine dependence, unspecified, uncomplicated; Z79.890 Hormone replacement therapy; Z79.82 Long term (current) use of aspirin; Z79.899 Other long term (current) drug therapy; Z96.651 Presence of right artificial knee joint
CPT/HCPCS: 36415; 93005; 80164; 80053; 84443; 85025; 80306; 73080; 71046; 70450; 99285; G0480; 80320

== ENCOUNTER 2021-01-08 23:02 | Observation (INO) | payer MEDICARE ==
[2021-01-08] MEDS ORDERED: SODIUM CHLORIDE 0.9% 1,000 ML IV ONE (23:16)
--- NOTE | 2021-01-08 23:18 | ED ---
Altered Mental Status HPI - General Chief Complaint: Altered Mental Status Stated Complaint: Seizure Time Seen by Provider: 01/08/21 23:11 Source: patient, EMS, RN notes reviewed, old records reviewed Mode of arrival: EMS Limitations: altered mental status, physical limitation - History of Present Illness Initial Comments: This is a 65-year-old male DF for evaluation patient is a poor story and tab requestioning he states he does not normally answered states that some uneasiness his daughter as well as daughter is not here. Per EMS patient had some sort of seizure or fall and didn't his head was altered after this event. Patient denying any drug or alcohol abuse. No loss of consciousness no significant pain MD Complaint: altered mental status, confusion -: unknown Severity: mild Consistency of Symptoms: waxing and waning Context: history of similar presentation, seizure disorder Associated Symptoms: denies other symptoms - Related Data Home Medications Medication Instructions Recorded Confirmed Levothyroxine Sodium [Synthroid] 75 mcg PO DAILY 09/05/20 12/02/20 Aspirin 81 mg PO HS 12/02/20 12/02/20 Divalproex Sodium [Depakote] 500 mg PO BID 12/02/20 12/02/20 Metoprolol Tartrate [Lopressor] 25 mg PO BID-W/MEALS 12/02/20 12/02/20 Venlafaxine HCl ER [Effexor Xr] 225 mg PO DAILY 12/02/20 12/02/20 lamoTRIgine [LaMICtal] 300 mg PO BID 12/02/20 12/02/20 traZODone HCL 100 mg PO HS 12/02/20 12/02/20 Previous Rx's Medication Instructions Recorded Famotidine 20 mg PO HS 30 Days tab 08/03/20 Montelukast [Singulair] 10 mg PO HS 30 Days tab 08/03/20 Zonisamide [Zonegran] 100 mg PO DAILY 30 Days cap 08/03/20 busPIRone HCL 15 mg PO TID 30 Days tab 08/03/20 levETIRAcetam [Keppra] 1,500 mg PO BID 30 Days tab 08/03/20 Allergies Allergy/AdvReac Type Severity Reaction Status Date / Time No Known Allergies Allergy Verified 01/08/21 23:08 Review of Systems ROS Statement: Those systems with pertinent positive or pertinent negative responses have been documented in the HPI. ROS Other: All systems not noted in ROS Statement are negative. Past Medical History Past Medical History: Chest Pain / Angina, Heart Failure, COPD, GERD/Reflux, Hypertension, Seizure Disorder, Thyroid Disorder Additional Past Medical History / Comment(s): falls,bronchitis,Memory impairment, legally incapacitated, hypothyroid, small hiatal hernia, d iverticulosis History of Any Multi-Drug Resistant Organisms: None Reported Past Surgical History: Hernia Repair, Joint Replacement, Orthopedic Surgery Additional Past Surgical History / Comment(s): 08/2017 EGGD/colonoscopy, prior colonoscopy, umbilical hernia repair, L total knee, R partial knee replacement, R lower leg fracture with ORIF (hardware in place), ERCP, bilateral knee arthroscopies. Past Anesthesia/Blood Transfusion Reactions: No Reported Reaction Past Psychological History: Anxiety, Bipolar, Depression, Schizophrenia Smoking Status: Current some day smoker Past Alcohol Use History: Occasional Past Drug Use History: Marijuana - Past Family History Father Family Medical History: Cancer, Coronary Artery Disease (CAD), Pneumonia Additional Family Medical History / Comment(s): Father had a pacemaker. He of pneumonia. Mother Family Medical History: Coronary Artery Disease (CAD), CVA/TIA General Exam Limitations: altered mental status, physical limitation General appearance: alert, in no apparent distress Head exam: Present: atraumatic, normocephalic, normal inspection Eye exam: Present: normal appearance, PERRL, EOMI. Absent: scleral icterus, conjunctival injection, periorbital swelling ENT exam: Present: normal exam, mucous membranes moist Neck exam: Present: normal inspection. Absent: tenderness, meningismus, lymphadenopathy Respiratory exam: Present: normal lung sounds bilaterally. Absent: respiratory distress, wheezes, rales, rhonchi, stridor Cardiovascular Exam: Present: regular rate, normal rhythm, normal heart sounds. Absent: systolic murmur, diastolic murmur, rubs, gallop, clicks GI/Abdominal exam: Present: soft, normal bowel sounds. Absent: distended, tenderness, guarding, rebound, rigid Extremities exam: Present: normal inspection, full ROM, normal capillary refill. Absent: tenderness, pedal edema, joint swelling, calf tenderness Back exam: Present: normal inspection Neurological exam: Present: alert, oriented X3, CN II-XII intact Psychiatric exam: Present: normal affect, normal mood Skin exam: Present: warm, dry, intact, normal color. Absent: rash Course Vital Signs 01/08/21 01/09/21 23:16 01:00 Temperature 97 F L Pulse Rate 48 L 48 L Respiratory 16 16 Rate Blood Pressure 115/101 128/69 O2 Sat by Pulse 97 Oximetry - Reevaluation(s) Reevaluation #1: Medical record is reviewed Reevaluated with no improvement in symptoms Patient informed of results, plan questions answered Medical Decision Making - Medical Decision Making 65 male DF for evaluation patient has seizure history coming in for altered mental status possible seizure and a fall prior to arrival. Patient has no injuries from the fall. Remains altered and refusing to answer questions or inability unable to answer questions here in the ER. Patient be admitted for neurology to evaluate secondary to seizures - Lab Data Result diagrams: 01/08/21 00:01 01/08/21 00:01 Lab Results 01/08/21 01/08/21 01/08/21 Range/Units 00:01 00:01 00:01 WBC 5.5 (3.8-10.6) k/uL RBC 4.22 L (4.30-5.90) m/uL Hgb 13.5 (13.0-17.5) gm/dL Hct 39.8 (39.0-53.0) % MCV 94.5 (80.0-100.0) fL MCH 32.1 (25.0-35.0) pg MCHC 34.0 (31.0-37.0) g/dL RDW 12.7 (11.5-15.5) % Plt Count 208 (150-450) k/uL MPV 7.0 Neutrophils % 49 % Lymphocytes % 38 % Monocytes % 7 % Eosinophils % 4 % Basophils % 1 % Neutrophils # 2.7 (1.3-7.7) k/uL Lymphocytes # 2.1 (1.0-4.8) k/uL Monocytes # 0.4 (0-1.0) k/uL Eosinophils # 0.2 (0-0.7) k/uL Basophils # 0.1 (0-0.2) k/uL PT 11.3 (9.0-12.0) sec INR 1.1 (<1.2) APTT 25.1 (22.0-30.0) sec Sodium 135 L (137-145) mmol/L Potassium 4.4 (3.5-5.1) mmol/L Chloride 99 (98-107) mmol/L Carbon Dioxide 28 (22-30) mmol/L Anion Gap 8 mmol/L BUN 14 (9-20) mg/dL Creatinine 1.23 (0.66-1.25) mg/dL Est GFR (CKD-EPI)AfAm 72 (>60 ml/min/1.73 sqM) Est GFR (CKD-EPI)NonAf 62 (>60 ml/min/1.73 sqM) Glucose 85 (74-99) mg/dL Calcium 8.9 (8.4-10.2) mg/dL Total Bilirubin 0.3 (0.2-1.3) mg/dL AST 20 (17-59) U/L ALT 11 (4-49) U/L Alkaline Phosphatase 56 (38-126) U/L Ammonia (<30) umol/L Creatine Kinase 105 (55-170) U/L Troponin I (0.000-0.034) ng/mL Total Protein 6.4 (6.3-8.2) g/dL Albumin 3.9 (3.5-5.0) g/dL Urine Color Urine Appearance (Clear) Urine pH (5.0-8.0) Ur Specific [place] (1.001-1.035) Urine Protein (Negative) Urine Glucose (UA) (Negative) Urine Ketones (Negative) Urine Blood (Negative) Urine Nitrite (Negative) Urine Bilirubin (Negative) Urine Urobilinogen (<2.0) mg/dL Ur Leukocyte Esterase (Negative) Salicylates <1.0 mg/dL Urine Opiates Screen (NotDetected) Ur Oxycodone Screen (NotDetected) Urine Methadone Screen (NotDetected) Ur Propoxyphene Screen (NotDetected) Acetaminophen <10.0 ug/mL Ur Barbiturates Screen (NotDetected) Phenytoin <3.0 ug/mL Valproic Acid 64.2 ug/mL Carbamazepine <3.0 ug/mL U Tricyclic Antidepress (NotDetected) Ur Phencyclidine Scrn (NotDetected) Ur Amphetamines Screen (NotDetected) U Methamphetamines Scrn (NotDetected) U Benzodiazepines Scrn (NotDetected) Urine Cocaine Screen (NotDetected) U Marijuana (THC) Screen (NotDetected) Serum Alcohol <10 mg/dL 01/08/21 01/08/21 01/09/21 Range/Units 00:01 00:01 00:55 WBC (3.8-10.6) k/uL RBC (4.30-5.90) m/uL Hgb (13.0-17.5) gm/dL Hct (39.0-53.0) % MCV (80.0-100.0) fL MCH (25.0-35.0) pg MCHC (31.0-37.0) g/dL RDW (11.5-15.5) % Plt Count (150-450) k/uL MPV Neutrophils % % Lymphocytes % % Monocytes % % Eosinophils % % Basophils % % Neutrophils # (1.3-7.7) k/uL Lymphocytes # (1.0-4.8) k/uL Monocytes # (0-1.0) k/uL Eosinophils # (0-0.7) k/uL Basophils # (0-0.2) k/uL PT (9.0-12.0) sec INR (<1.2) APTT (22.0-30.0) sec Sodium (137-145) mmol/L Potassium (3.5-5.1) mmol/L Chloride (98-107) mmol/L Carbon Dioxide (22-30) mmol/L Anion Gap mmol/L BUN (9-20) mg/dL Creatinine (0.66-1.25) mg/dL Est GFR (CKD-EPI)AfAm (>60 ml/min/1.73 sqM) Est GFR (CKD-EPI)NonAf (>60 ml/min/1.73 sqM) Glucose (74-99) mg/dL Calcium (8.4-10.2) mg/dL Total Bilirubin (0.2-1.3) mg/dL AST (17-59) U/L ALT (4-49) U/L Alkaline Phosphatase (38-126) U/L Ammonia <9 (<30) umol/L Creatine Kinase (55-170) U/L Troponin I 0.020 (0.000-0.034) ng/mL Total Protein (6.3-8.2) g/dL Albumin (3.5-5.0) g/dL Urine Color Light Yellow Urine Appearance Clear (Clear) Urine pH 6.5 (5.0-8.0) Ur Specific [place] 1.006 (1.001-1.035) Urine Protein Negative (Negative) Urine Glucose (UA) Negative (Negative) Urine Ketones Negative (Negative) Urine Blood Negative (Negative) Urine Nitrite Negative (Negative) Urine Bilirubin Negative (Negative) Urine Urobilinogen <2.0 (<2.0) mg/dL Ur Leukocyte Esterase Negative (Negative) Salicylates mg/dL Urine Opiates Screen Not Detected (NotDetected) Ur Oxycodone Screen Not Detected (NotDetected) Urine Methadone Screen Not Detected (NotDetected) Ur Propoxyphene Screen Not Detected (NotDetected) Acetaminophen ug/mL Ur Barbiturates Screen Not Detected (NotDetected) Phenytoin ug/mL Valproic Acid ug/mL Carbamazepine ug/mL U Tricyclic Antidepress Not Detected (NotDetected) Ur Phencyclidine Scrn Not Detected (NotDetected) Ur Amphetamines Screen Not Detected (NotDetected) U Methamphetamines Scrn Not Detected (NotDetected) U Benzodiazepines Scrn Not Detected (NotDetected) Urine Cocaine Screen Not Detected (NotDetected) U Marijuana (THC) Screen Not Detected (NotDetected) Serum Alcohol mg/dL - EKG Data -: EKG Interpreted by Me (EKG shows sinus bradycardia 47, [place] 198 QRS 120 QTc 4:30) - Radiology Data Radiology results: report reviewed (CT brain C-spine are negative for acute disease), image reviewed Disposition Clinical Impression: Altered mental status, Bradycardia, Generalized seizure, Seizure Disposition: ADMITTED IP TO THIS [facility] Condition: Undetermined Is patient prescribed a controlled substance at d/c from ED?: No
[2021-01-09 00:44] LABS: ALT 11 U/L (4-49); AST 20 U/L (17-59); Acetaminophen <10.0 ug/mL; African American GFR (CKD) 72 (>60 ml/min/1.73 sqM); Albumin 3.9 g/dL (3.5-5.0); Alcohol <10 mg/dL; Alkaline Phosphatase 56 U/L (38-126); Anion Gap 8 mmol/L; Blood Urea Nitrogen 14 mg/dL (9-20); Calcium 8.9 mg/dL (8.4-10.2); Carbamazepine (Tegretol) <3.0 ug/mL; Carbon Dioxide 28 mmol/L (22-30); Chloride 99 mmol/L (98-107); Creatine Kinase 105 U/L (55-170); Glucose 85 mg/dL (74-99); Non-African American GFR(CKD) 62 (>60 ml/min/1.73 sqM); Phenytoin (Dilantin) <3.0 ug/mL; Potassium 4.4 mmol/L (3.5-5.1); Salicylate <1.0 mg/dL; Sodium 135 mmol/L (137-145); Total Bilirubin 0.3 mg/dL (0.2-1.3); Total Protein 6.4 g/dL (6.3-8.2)
[2021-01-09 00:45] LABS: Basophils # (A) 0.1 k/uL (0-0.2); Basophils % (A) 1 %; Eosinophils # (A) 0.2 k/uL (0-0.7); Eosinophils % (A) 4 %; HCT 39.8 % (39.0-53.0); HGB 13.5 gm/dL (13.0-17.5); Lymphocytes # (A) 2.1 k/uL (1.0-4.8); Lymphocytes % (A) 38 %; MCH 32.1 pg (25.0-35.0); MCV 94.5 fL (80.0-100.0); Monocytes # (A) 0.4 k/uL (0-1.0); Monocytes % (A) 7 %; Neutrophils # (A) 2.7 k/uL (1.3-7.7); Neutrophils % (A) 49 %; Platelet Count 208 k/uL (150-450); RBC 4.22 m/uL (4.30-5.90); RDW 12.7 % (11.5-15.5); WBC 5.5 k/uL (3.8-10.6)
--- NOTE | 2021-01-09 00:45 | CT ---
EXAM: CT Head Without Intravenous Contrast CLINICAL HISTORY: fall TECHNIQUE: Axial computed tomography images of the head/brain without intravenous contrast. CTDI is 27.385 mGy and DLP is 671.15 mGy-cm. This CT exam was performed using one or more of the following dose reduction techniques: automated exposure control, adjustment of the mA and/or kV according to patient size, and/or use of iterative reconstruction technique. COMPARISON: 07/09/20 FINDINGS: Brain: No acute intracranial hemorrhage, large hypodensity, or significant mass effect. Nonspecific areas of hypoattenuation in the periventricular white matter likely represent the sequela of chronic small vessel ischemic disease. Ventricles: Ventricular and sulcal prominence commensurate with the patient's age. Bones/joints: No acute calvarial abnormality. Stable deformity of the right mandibular condyle is compatible with the sequela of remote trauma. Soft tissues: No significant abnormality. Sinuses: No significant abnormality. Mastoid air cells: No significant abnormality. IMPRESSION: No acute intracranial hemorrhage or calvarial fracture. EXAM: CT Cervical Spine Without Intravenous Contrast CLINICAL HISTORY: fall TECHNIQUE: Axial computed tomography images of the cervical spine without intravenous contrast. CTDI is 27.385 mGy and DLP is 671.15 mGy-cm. This CT exam was performed using one or more of the following dose reduction techniques: automated exposure control, adjustment of the mA and/or kV according to patient size, and/or use of iterative reconstruction technique. COMPARISON: No relevant prior studies available. FINDINGS: Vertebrae: No acute fracture or malalignment. Straightening of the normal cervical lordosis. Discs/spinal canal/neural foramina: Disc height loss, osteophytes, uncovertebral spurs, and facet arthropathy. Multilevel foraminal narrowing. No significant osseous spinal stenosis. Soft tissues: No significant abnormality. IMPRESSION: No acute fracture or malalignment.
[2021-01-09 00:46] LABS: Valproic Acid (Depakene) 64.2 ug/mL
[2021-01-09 00:50] LABS: INR 1.1 (<1.2); Partial Thromboplastin Time 25.1 sec (22.0-30.0); Prothrombin Time 11.3 sec (9.0-12.0)
[2021-01-09] MEDS ORDERED: ONDANSETRON 4 MG/2 ML VIAL IVP PRN (01:14)
[2021-01-09] MEDS ORDERED: NALOXONE 0.4 MG/ML 1 ML VIAL IV PRN (01:14)
[2021-01-09 01:40] LABS: Appearance,Urine Clear (Clear); Bilirubin,Urine Negative (Negative); Blood,Urine Negative (Negative); Color,Urine Light Yellow; Glucose,Urine (UA) Negative (Negative); Ketones,Urine Negative (Negative); Leukocyte Esterase,Urine Negative (Negative); Nitrite,Urine Negative (Negative); PH, Urine 6.5 (5.0-8.0); Protein,Urine Negative (Negative); Specific Gravity,Urine 1.006 (1.001-1.035); Urobilinogen,Urine <2.0 mg/dL (<2.0)
[2021-01-09 01:52] LABS: Amphetamine Screen,Urine Not Detected (NotDetected); Barbiturate Screen,Urine Not Detected (NotDetected); Benzodiazepines Screen,Urine Not Detected (NotDetected); Cocaine Screen,Urine Not Detected (NotDetected); Methadone Screen, Urine Not Detected (NotDetected); Opiate Screen,Urine Not Detected (NotDetected); Oxycodone Screen, Urine Not Detected (NotDetected); Phencyclidine Screen,Urine Not Detected (NotDetected); Tricyclic Antidepressant,Urine Not Detected (NotDetected); Urn Cannabinoid Scrn Not Detected (NotDetected)
[2021-01-09] MEDS: PANTOPRAZOLE 40 MG/10 ML VIAL IV SCH (08:18)
--- NOTE | 2021-01-09 09:37 | P.CNNES ---
History of Present Illness Consult date: 01/09/21 Requesting physician: Ronen Baig Reason for Consult: seizure History of Present Illness: This is a 65-year-old gentleman with history of seizure disorder, that presents to the hospital multiple times for breakthrough seizures, and seems some of break-thru seizure was due to missing medication, bipolar that presented to the emergency department on 01/08/2021 for altered mental status. History is obtained from medical record. Patient multiple admissions to the hospital and was seen by the neuro hospitalist at our facility and is known to Dr. Rueda. Per the ED note, It seems that per EMS the patient has some sort of seizure or fall and didn't hit the head and he's been altered since the event patient denies any loss of consciousness. According to the patient he presented to the hospital because he thinks he had a seizure only remembers was falling otherwise either a mirror happened. He feels he is back to baseline. He cannot tell me what medication he is on and says that his daughter manages his medication and unable tell me if he misses medications or not. He couldn't tell me when his seizures started. The patient follows up with his neurologist (Dr. Nelson). He is known to Dr. Rueda since he seen this patient multiple times in the hospital and was last seen on 07/30/2020(progress note) for breakthrough seizures. per Dr. Herrera's note he recommended for the patient to continue Keppra 1500 mg 1 tablet twice a day and to decrease the Lamictal from 300 mg 1 tablet twice a day to 200 mg twice a day. To continue sonogram 100 mg daily and to continue Depakote 250 mg 3 times a day. At that time it seems that the daughter was informed that there is Depakote and Lamictal drug interaction. He was also informed that if the patient has any double vision balance issues to decrease the dose of Lamictal. Please refer to Dr. Herrera note (consultation note on 07/28/2020 for the details of the patient history). Patient had multiple EEGs in our facility and the last one was on 03/12/2019 and was reported as abnormal EEG due to mild to moderate background slowing. This is suggestive of generalized cerebral dysfunction as can be seen in toxic metabolic encephalopathy related to the diffuse structural brain abnormality. I reviewed all of EEGs reports that he had in 2018 and 17 our facility and non- showed that seizure or epileptiform activity. His Keppra level on 12/01/2020 was 2.8 and the normal is between 3-60. His Lamictal level last in June 2020 was 6.8 which is normal. His valproic acid 3 was 1.9 which is subtherapeutic on 12/01/2020 The patient after that was admitted to psychiatric unit for his bipolar disorder. Workup in our facility consisted of: Initial vital signs was blood pressure 115/101, heart rate of 48, temperature of 97 Fahrenheit oral, respiratory of 16, pulse ox of 97% at room air. White blood cell is 5.5 the. Sodium is 135 which is mainly low. CT of the head is reported as no acute intracranial hemorrhage or Calvariall fracture. CT cervical spine is reported as no acute fracture or malalignement. I reviewed the CT cervical spine and I felt the there is spondylosis over C6-C7 mostly Otherwise the of the chemistry panel are normal. Ammonia level less than 9. AST of 20 and ALT of 11. Urine toxicology the basic is nondetected. The Salicylates it's are less than 1, acetaminophen less than 10, phenytoin is less than 3, valproic acid 64.2 (therapeutic). Carbamazepine is less than 3, serum alcohol was less than 10. Review of Systems Review of system: The 12 point system was reviewed and apparent positive and negative per HPI. Past Medical History Past Medical History: Chest Pain / Angina, Heart Failure, COPD, GERD/Reflux, Hypertension, Seizure Disorder, Thyroid Disorder Additional Past Medical History / Comment(s): falls,bronchitis,Memory impairment, legally incapacitated, hypothyroid, small hiatal hernia, diverticulosis History of Any Multi-Drug Resistant Organisms: None Reported Past Surgical History: Hernia Repair, Joint Replacement, Orthopedic Surgery Additional Past Surgical History / Comment(s): 08/2017 EGGD/colonoscopy, prior colonoscopy, umbilical hernia repair, L total knee, R partial knee replacement, R lower leg fracture with ORIF (hardware in place), ERCP, bilateral knee arthroscopies. Past Anesthesia/Blood Transfusion Reactions: No Reported Reaction Past Psychological History: Anxiety, Bipolar, Depression, Schizophrenia Smoking Status: Current some day smoker Past Alcohol Use History: Occasional Past Drug Use History: Marijuana - Past Family History Father Family Medical History: Cancer, Coronary Artery Disease (CAD), Pneumonia Additional Family Medical History / Comment(s): Father had a pacemaker. He of pneumonia. Mother Family Medical History: Coronary Artery Disease (CAD), CVA/TIA Medications and Allergies Home Medications Medication Instructions Recorded Confirmed Type Famotidine 20 mg PO HS 30 Days tab 08/03/20 01/09/21 Rx Montelukast [Singulair] 10 mg PO HS 30 Days tab 08/03/20 01/09/21 Rx Zonisamide [Zonegran] 100 mg PO DAILY 30 Days cap 08/03/20 01/09/21 Rx busPIRone HCL 15 mg PO TID 30 Days tab 08/03/20 01/09/21 Rx levETIRAcetam [Keppra] 1,500 mg PO BID 30 Days tab 08/03/20 01/09/21 Rx Levothyroxine Sodium [Synthroid] 75 mcg PO DAILY 09/05/20 01/09/21 History Aspirin 81 mg PO HS 12/02/20 01/09/21 History Divalproex Sodium [Depakote] 500 mg PO BID 12/02/20 01/09/21 History Metoprolol Tartrate [Lopressor] 25 mg PO BID-W/MEALS 12/02/20 01/09/21 History Venlafaxine HCl ER [Effexor Xr] 225 mg PO DAILY 12/02/20 01/09/21 History lamoTRIgine [LaMICtal] 300 mg PO BID 12/02/20 01/09/21 History traZODone HCL 100 mg PO HS PRN 12/02/20 01/09/21 History Allergies Allergy/AdvReac Type Severity Reaction Status Date / Time No Known Allergies Allergy Verified 01/08/21 23:08 Physical Examination - Vital Signs Vital Signs: Vital Signs Temp Pulse Resp BP Pulse Ox 01/09/21 04:51 97.4 F L 47 L 16 131/82 97 01/09/21 03:00 56 L 16 01/09/21 02:00 54 L 16 01/09/21 01:00 48 L 16 128/69 01/08/21 23:16 97 F L 48 L 16 115/101 97 Intake and Output 01/08/21 01/09/21 01/09/21 22:59 06:59 14:59 Other: Weight 72.575 kg GENERAL: The patient is lying in bed and is not in acute distress. HENT: Inconsistent Head tremor associated with trunk tremor. CHEST: The heart rate is regular rate rhythm. No murmurs to auscultation. LUNG: Clear to auscultation bilaterally no wheezing noted throughout. Not labored breathing. ABDOMEN/GI: Bowel sounds present in all 4 quadrants. No tenderness to palpation throughout. NEUROLOGICAL: Higher mental function: The patient is awake, alert, oriented to self, place and time. Patient is following commands. No aphasia and no neglect. Cranial nerves: The pupils are round, equal and reactive to light and accommodation. Visual villarreal are full to confrontation throughout. Extraocular movement is intact no nystagmus is noted. Facial sensation is normal to touch throughout. The facial strength is normal throughout. Hearing is moderately decreased bilaterally to hand rub. Tongue is midline and moved [id number] without any difficulty. No dysarthria is noted. Shoulder shrug is normal bilaterally. Motor: Gait is deferred. The strength is 5 over 5 throughout. Normal tone and bulk. Patient has trunk tremor and upon extension of hand has tremors. Cerebellum: Normal finger to nose heel to nunez bilaterally. Sensation: Sensation is normal to touch throughout. Reflexes (right/left): 2+ throughout. Plantars are downgoing bilaterally. Results Urinalysis is negative for UTI Gonsalez virus PCR is nondetected Coagulation study: PT of 11.3, INR 1.1 and PTT of 25.1. - Laboratory Findings CBC and BMP: 01/08/21 00:01 01/08/21 00:01 Abnormal Lab Findings: Abnormal Labs 01/08/21 01/08/21 00:01 00:01 RBC 4.22 L Sodium 135 L Assessment and Plan Assessment: This is a 65-year-old gentleman with history of multiple breakthrough seizure, b ipolar that presents to the emergency department on 01/08/2021 for breakthrough seizure. Breakthrough seizure. Unsure exact cause (unsure if medication non-compliance). Currently he is back to baseline History of Epilepsy Tremor like due to polypharmacy Cervical spondlyosis mostly C6-C7. Bipolar Polypharmacy Plan: He had had extensive testing in the past with multiple EEGs and none showed seizures. An EEG is not warranted at this time since patient is back to baseline and with know history of seizure. I will restart Keppra 1500 mg 1 tablet twice a day, Lamictal 150mg bid rather than 200 mg twice a day. To continue sonogram 100 mg daily and to continue Depakote 500 mg twice times a day. I feel the patient is on polypharmacy for seizure medication and psychiatric medication. I feel down the line if Keppra is causing psychiatric worsening then possibly consider tapering Keppra and going up on the Depakote. Regarding the Depakote and Lamictal I feel if the patient is a having side effects with Lamictal we can taper the Lamictal and go up on the Depakote or vice versa. They're both antiepileptic as well as mood stabilizer. I reviewed the EEG reports that he had in our facility and none showed seizures or epileptiform discharges. In my opinion the patient will benefit from epilepsy monitoring unit to delineate more about his spells a seizure activity as an outpatient. I highly recommended the patient follows up with an epileptologist regarding management of his seizures as outpatient. I consulted psychiatry for the patient for history of bipolar and polypharmacy. I attempted to contact the patient's daughter (Pat) via phone but no response. Will attempt later again. The plan is discussed with the patient's nurse. Thank you for the consultation. Dr. Rueda will take over neurology services starting tomorrow. Christopher Salgado MD Neuro-Hospitalist Time with Patient: Greater than 30
[2021-01-09] MEDS: levETIRAcetam 500 MG TAB PO SCH ×2 (14:39→21:06)
[2021-01-09] MEDS: ZONISAMIDE 100 MG CAP PO SCH (14:39)
[2021-01-09] MEDS: lamoTRIgine 25 MG TAB PO SCH ×2 (14:40→21:06)
[2021-01-09] MEDS: lamoTRIgine 100 MG TAB PO SCH ×2 (14:40→21:06)
[2021-01-09] MEDS: DIVALPROEX 500 MG TABLET.DR PO SCH ×2 (14:40→21:06)
--- NOTE | 2021-01-09 16:45 | P.HPIM ---
History of Present Illness H&P Date: 01/09/21 Chief Complaint: Seizures 65-year-old gentleman with history of seizure disorder, that presents to the hospital multiple times for breakthrough seizures, and seems some of break-thru seizure was due to missing medication, bipolar that presented to the emergency department on 01/08/2021 for altered mental status. History is obtained from medical record. Patient multiple admissions to the hospital and was seen by the neuro hospitalist at our facility and is known to Dr. Rueda. Per the ED note, It seems that per EMS the patient has some sort of seizure or fall and didn't hit the head and he's been altered since the event patient denies any loss of consciousness. According to the patient he presented to the hospital because he thinks he had a seizure only remembers was falling otherwise either a mirror happened. He feels he is back to baseline. He cannot tell me what medication he is on and says that his daughter manages his medication and unable tell me if he misses medications or not. He couldn't tell me when his seizures started. Workup in our facility consisted of: Initial vital signs was blood pressure 115/101, heart rate of 48, temperature of 97 Fahrenheit oral, respiratory of 16, pulse ox of 97% at room air. White blood cell is 5.5 the. Sodium is 135 which is mainly low. CT of the head is reported as no acute intracranial hemorrhage or Calvariall fracture. CT cervical spine is reported as no acute fracture or malalignement. I reviewed the CT cervical spine and I felt the there is spondylosis over C6-C7 mostly Otherwise the of the chemistry panel are normal. Ammonia level less than 9. AST of 20 and ALT of 11. Urine toxicology the basic is nondetected. The Salicylates it's are less than 1, acetaminophen less than 10, phenytoin is less than 3, valproic acid 64.2 (therapeutic). Carbamazepine is less than 3, serum alcohol was less than 10. Review of Systems REVIEW OF SYSTEMS: CONSTITUTIONAL: No fever, no malaise, no fatigue. HEENT: No recent visual problems or hearing problems. Denied any sore throat. CARDIOVASCULAR: No chest pain, orthopnea, PND, no palpitations, no syncope. PULMONARY: No shortness of breath, no cough, no hemoptysis. GASTROINTESTINAL: No diarrhea, no nausea, no vomiting, no abdominal pain. NEUROLOGICAL: No headaches, no weakness, no numbness. HEMATOLOGICAL: Denies any bleeding or petechiae. GENITOURINARY: Denies any burning micturition, frequency, or urgency. MUSCULOSKELETAL/RHEUMATOLOGICAL: Denies any joint pain, swelling, or any muscle pain. ENDOCRINE: Denies any polyuria or polydipsia. The rest of the 14-point review of systems is negative. Past Medical History Past Medical History: Chest Pain / Angina, Heart Failure, COPD, GERD/Reflux, Hypertension, Seizure Disorder, Thyroid Disorder Additional Past Medical History / Comment(s): falls,bronchitis,Memory impairment, legally incapacitated, hypothyroid, small hiatal hernia, diverticulosis History of Any Multi-Drug Resistant Organisms: None Reported Past Surgical History: Hernia Repair, Joint Replacement, Orthopedic Surgery Additional Past Surgical History / Comment(s): 08/2017 EGGD/colonoscopy, prior colonoscopy, umbilical hernia repair, L total knee, R partial knee replacement, R lower leg fracture with ORIF (hardware in place), ERCP, bilateral knee arthroscopies. Past Anesthesia/Blood Transfusion Reactions: No Reported Reaction Past Psychological History: Anxiety, Bipolar, Depression, Schizophrenia Smoking Status: Current some day smoker Past Alcohol Use History: Occasional Past Drug Use History: Marijuana - Past Family History Father Family Medical History: Cancer, Coronary Artery Disease (CAD), Pneumonia Additional Family Medical History / Comment(s): Father had a pacemaker. He of pneumonia. Mother Family Medical History: Coronary Artery Disease (CAD), CVA/TIA Medications and Allergies Home Medications Medication Instructions Recorded Confirmed Type Famotidine 20 mg PO HS 30 Days tab 08/03/20 01/09/21 Rx Montelukast [Singulair] 10 mg PO HS 30 Days tab 08/03/20 01/09/21 Rx Zonisamide [Zonegran] 100 mg PO DAILY 30 Days cap 08/03/20 01/09/21 Rx busPIRone HCL 15 mg PO TID 30 Days tab 08/03/20 01/09/21 Rx levETIRAcetam [Keppra] 1,500 mg PO BID 30 Days tab 08/03/20 01/09/21 Rx Levothyroxine Sodium [Synthroid] 75 mcg PO DAILY 09/05/20 01/09/21 History Aspirin 81 mg PO HS 12/02/20 01/09/21 History Divalproex Sodium [Depakote] 500 mg PO BID 12/02/20 01/09/21 History Metoprolol Tartrate [Lopressor] 25 mg PO BID-W/MEALS 12/02/20 01/09/21 History Venlafaxine HCl ER [Effexor Xr] 225 mg PO DAILY 12/02/20 01/09/21 History lamoTRIgine [LaMICtal] 300 mg PO BID 12/02/20 01/09/21 History traZODone HCL 100 mg PO HS PRN 12/02/20 01/09/21 History Allergies Allergy/AdvReac Type Severity Reaction Status Date / Time No Known Allergies Allergy Verified 01/08/21 23:08 Physical Exam Vitals: Vital Signs Temp Pulse Resp BP Pulse Ox 01/09/21 08:00 16 01/09/21 04:51 97.4 F L 47 L 16 131/82 97 01/09/21 03:00 56 L 16 01/09/21 02:00 54 L 16 01/09/21 01:00 48 L 16 128/69 01/08/21 23:16 97 F L 48 L 16 115/101 97 Intake and Output 01/08/21 01/09/21 01/09/21 22:59 06:59 14:59 Other: Weight 72.575 kg - Constitutional General appearance: Present: average body habitus, cooperative, no acute distress - EENT Eyes: Present: anicteric sclerae, EOMI, PERRLA, normal appearance ENT: Present: hearing grossly normal, normal oropharynx Ears: bilateral: normal - Neck Neck: Present: normal ROM. Absent: lymphadenopathy, rigidity, thyromegaly Carotids: negative: bruit present Thyroid: bilateral: normal size, negative: enlarged, nodule - Respiratory Respiratory: bilateral: CTA, negative: rales, rhonchi, wheezing - Cardiovascular Rhythm: regular Heart sounds: normal: S1, S2 Abnormal Heart Sounds: Absent: systolic murmur, diastolic murmur - Gastrointestinal General gastrointestinal: Present: normal bowel sounds, soft. Absent: distended, organomegaly, tenderness - Genitourinary Genitourinary Comment(s): deferred - Integumentary Integumentary: Present: normal turgor. Absent: jaundiced, rash, ulcer - Neurologic Neurologic: Present: CNII-XII intact. Absent: focal deficits - Musculoskeletal Musculoskeletal: Present: gait normal, strength equal bilaterally - Psychiatric Psychiatric: Present: A&O x's 3, appropriate affect, intact judgment & insight Results CBC & Chem 7: 01/08/21 00:01 01/08/21 00:01 Labs: Abnormal Lab Results - Last 24 Hours (Table) 01/08/21 01/08/21 Range/Units 00: 00:01 RBC 4.22 L (4.30-5.90) m/uL Sodium 135 L (137-145) mmol/L Assessment and Plan Assessment: 1. Breakthrough seizures - Patient does have history of epilepsy; neurology has evaluated patient - Patient is currently on Zonegran 100 mg daily, Keppra 1500 mg twice a day and Lamictal 300 mg twice a day - Patient has been restarted on Keppra 1500 mg twice a day and Lamictal along with Zonegran; neurology once medications adjusted believing patient is on polypharmacy for seizure medications; previous EEG reports have been reviewed and no seizures or epileptiform discharges were noted 2. Polypharmacy; as indicated above ; neurology recommending consultation with psych and also in process of adjusting medications 3. Hypertension; metoprolol 25 mg twice a day 4. Hypothyroidism; levothyroxin 75 MCG daily 5. Asthma; not in exacerbation; continue with home initiate therapy; singular 10 mg daily 6. Bipolar disorder; patient takes BuSpar 15 mg 3 times a day along with Depakote 500 mg twice a day and Effexor 225 mg daily, trazodone 100 mg by mouth daily at bedtime - We will consult psych for medication adjustments DVT prophylaxis ; SCDs CODE STATUS; full code
[2021-01-10 03:41] VITALS: RESP 14
[2021-01-10 09:03] LABS: Basophils # (A) 0.05 X 10*3/uL (0.00-0.10); Basophils % (A) 0.8 %; Eosinophils # (A) 0.15 X 10*3/uL (0.04-0.35); Eosinophils % (A) 2.5 %; HCT 37.4 % (39.6-50.0); HGB 12.8 g/dL (13.0-17.0); Lymphocytes # (A) 1.61 X 10*3/uL (0.90-5.00); Lymphocytes % (A) 26.7 %; MCH 32.3 pg (27.0-32.0); MCHC 34.2 g/dL (32.0-37.0); MCV 94.4 fL (80.0-97.0); Mean Platelet Volume 9.8 fL (9.5-12.2); Monocytes # (A) 0.58 X 10*3/uL (0.20-1.00); Monocytes % (A) 9.6 %; Neutrophils # (A) 3.61 X 10*3/uL (1.80-7.70); Neutrophils % (A) 60.1 %; Platelet Count 201 X 10*3/uL (140-440); RBC 3.96 X 10*6/uL (4.40-5.60); RDW 12.7 % (11.5-14.5); WBC 6.02 X 10*3/uL (4.50-10.00)
[2021-01-10 09:27] LABS: African American GFR (CKD) 74.1 (60.0-200.0); Anion Gap 7.1 mmol/L (4.00-12.00); BUN/Creat Ratio 14.17 Ratio (12.00-20.00); Calcium 8.7 mg/dL (8.7-10.3); Carbon Dioxide 28.9 mmol/L (21.6-31.8); Potassium 4.9 mmol/L (3.5-5.5)
[2021-01-10] MEDS: DIVALPROEX 500 MG TABLET.DR PO SCH (09:50)
[2021-01-10] MEDS: lamoTRIgine 25 MG TAB PO SCH (09:50)
[2021-01-10] MEDS: ZONISAMIDE 100 MG CAP PO SCH (09:50)
[2021-01-10] MEDS: lamoTRIgine 100 MG TAB PO SCH (09:50)
[2021-01-10] MEDS: PANTOPRAZOLE 40 MG/10 ML VIAL IV SCH (09:51)
[2021-01-10 13:03] VITALS: BP 149/88; PULSE 60; TEMP 97.6
--- NOTE | 2021-01-10 14:27 | P.CN ---
Psychiatric Consult - . Consult date: 01/10/21 Consult:: 01/10/21 14:11 IDENTIFYING DATA: This patient is a 65-year-old male with significant history of seizure disorder who presented to the hospital for recurrent seizures with status epilepticus. REASON FOR CONSULT: Bipolar disorder, concern for high dose of Lamictal and polypharmacy. HISTORY OF PRESENT ILLNESS: The patient presented to the emergency department uncertainty says 04/2021 for altered mental status. It was reported that the patient had some sort of seizure or fall and has been altered leading to him being picked up by EMS and brought to the hospital for evaluation. The patient is unsure if he has missed in his medications, stating that his daughter manages his medication. The patient is also unsure whether he had a seizure prior to this presentation to the hospital. Psychiatry has been consulted for evaluation of bipolar disorder as well as the concern that the patient is on high dose Lamictal and polypharmacy. Currently at this time, the patient is not reporting any significant issues regarding his mood. He is not reporting any hopelessness, helplessness, anhedonia, changes in appetite, difficulty with sleep, or suicidal or homicidal ideation, intention, and/or plan. He is currently not reporting any significant symptoms of umesh. He denies any increased codirected behavior, periods of excessive energy, mood lability, grandiosity, or pressured speech. The patient is not reporting any auditory or visual hallucinations at this time. He denies any paranoia or delusions. The patient was evaluated this past July by this treatment team and was admitted for management of a bipolar manic episode in the context of medication the patient was then discharged from the mental health unit on a regimen of Depakote, Keppra, BuSpar, and zonisamide. At the time, the patient was also prescribed Lamictal but this was discontinued by the psychiatric team due to concern that the patient was not adherent with the prescribed medication placing him at increased risk for Stiven Rivas syndrome. As per the patient's daughter, the patient was placed back on Lamictal by his outpatient neurologist. The patient's daughter also reports that the patient has not displayed any odd behavior or significant issues with mood since he was last discharged this past July. PAST PSYCHIATRIC HISTORY: Patient has a a history of bipolar disorder. Patient's daughter reports that the patient has been on Seroquel in the past but has had an adverse reaction for medication causing him to be angry and "developed multiple personalities." The patient currently follows with Dr. Mena from [facility]. PAST MEDICAL HISTORY: Past Medical History: Chest Pain / Angina, Heart Failure, COPD, GERD/Reflux, Hypertension, Seizure Disorder, Thyroid Disorder Additional Past Medical History / Comment(s): falls,bronchitis,Memory impairment, legally incapacitated, hypothyroid, small hiatal hernia, diverticulosis History of Any Multi-Drug Resistant Organisms: None Reported Past Surgical History: Hernia Repair, Joint Replacement, Orthopedic Surgery Additional Past Surgical History / Comment(s): 08/2017 EGGD/colonoscopy, prior colonoscopy, umbilical hernia repair, L total knee, R partial knee replacement, R lower leg fracture with ORIF (hardware in place), ERCP, bilateral knee arthr oscopies. Past Anesthesia/Blood Transfusion Reactions: No Reported Reaction ALLERGIES: NO KNOWN DRUG ALLERGIES CHEMICAL DEPENDENCY HISTORY: The patient has a significant history of substance abuse. He reports using cocaine, acid, methamphetamines, opiates, and mescaline approximately 5 years ago when he was working with the [employer] in [place]. FAMILY PSYCHIATRIC/SUBSTANCE USE HISTORY: Mother - Bipolar, depression, anxiety Daughter - Depression/anxiety SOCIAL HISTORY: Patient was born and raised in [place]. As per review of the patient's prior psychiatric records, the patient's parents when he was young. His mom in her 60s. He was the eldest of 3 boys. He dropped out of high school but obtained his GED. He was briefly and had a daughter who currently lives with him. MENTAL STATUS EXAM: General Appearance: Patient appears to be stated age is alert, pleasant, and cooperative. Patient appears to have fair hygiene and grooming wearing hospital gown with fair eye contact. Patient is bald and wearing glasses. Behavior: Psychomotor activity appears normal. Patient is calmly sitting up in bed watching television. Speech: Patient's speech is spontaneous, with normal rate, tone, volume, and fluency. Mood/Affect: Patient reports their mood is "feeling fine", affect is euthymic with appropriate range. Suicidality/Homicidality: Patient denies having any suicidal or homicidal ideation intent or plan. Perceptions: Patient denies any visual hallucinations and denies any auditory hallucinations Though content/process: There is no evidence of any delusional thought content and thought process is linear and goal-directed. Memory and concentration: AOX3, grossly intact for the purposes of this session. Judgment and insight: fair IMPRESSIONS: Seizure Disorder Bipolar disorder, unspecified Major neurocognitive disorder There is concern for polypharmacy as the patient is on 3 antiseizure medications. The patient was previously discharged without Lamictal but as per discussion with the patient's daughter, she believes Lamictal was restarted by his outpatient neurologist for management of seizure disorder. Depakote appears to be at therapeutic levels and we will continue this at this time. Agreeable to keep Lamictal at 150 mg by mouth twice a day rather than his home dose of 300 mg by mouth twice a day due to concern of polypharmacy. PLAN: -At this time patient DOES NOT meet criteria for inpatient psychiatric admission. 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 Okay to continue Keppra from a psychiatric standpoint. -Recommend outpatient psychiatry and neurology follow-up. -When medically stable, patient is eligible for transfer to a psych bed when available.
[2021-01-11] MEDS ORDERED: PANTOPRAZOLE 40 MG TABLET PO SCH (09:00)
--- NOTE | 2021-01-11 09:18 | P.DS ---
Providers Date of admission: 01/09/21 01:47 Expected date of discharge: 01/10/21 Attending physician: Derrell Sierra Consults: 01/09/21 01:14 Consult Physician Routine Consulting Provider: Christopher Salgado Consult Reason/Comments: sz Do you want consulting provider notified?: Yes 01/09/21 08:15 Consult Physician Routine Consulting Provider: Get Dan Consult Reason/Comments: bipolar and on high dose lamictal and polypharmacy Do you want consulting provider notified?: Yes Primary care physician: Lucia Kc Hospital Course: Final diagnosis Breakthrough seizures with a history of epilepsy Polypharmacy with antiepileptic and psychiatric medications Hypertension Hypothyroidism asthma, not in acute exacerbation Bipolar disorder DVT prophylaxis GI prophylaxis Full code Discharge disposition Patient is being discharged in a stable condition with guarded prognosis to home. Patient will follow-up with Dr. Kc in the outpatient setting upon discharge. Patient is also to follow up with neurology Dr. Kirkland in the outpatient setting. Total time taken is greater than 35 minutes. Hospital course 65-year-old gentleman with history of seizure disorder, that presents to the hospital multiple times for breakthrough seizures, and seems some of break-thru seizure was due to missing medication, bipolar that presented to the emergency department on 01/08/2021 for altered mental status. History is obtained from medical record. Patient multiple admissions to the hospital and was seen by the neuro hospitalist at our facility and is known to Dr. Rueda. Per the ED note, It seems that per EMS the patient has some sort of seizure or fall and didn't hit the head and he's been altered since the event patient denies any loss of consciousness. According to the patient he presented to the hospital because he thinks he had a seizure only remembers was falling otherwise either a mirror happened. He feels he is back to baseline. He cannot tell me what medication he is on and says that his daughter manages his medication and unable tell me if he misses medications or not. He couldn't tell me when his seizures started. Workup in our facility consisted of: Initial vital signs was blood pressure 115/101, heart rate of 48, temperature of 97 Fahrenheit oral, respiratory of 16, pulse ox of 97% at room air. White blood cell is 5.5 the. Sodium is 135 which is mainly low. CT of the head is reported as no acute intracranial hemorrhage or Calvariall fracture. CT cervical spine is reported as no acute fracture or malalignement. I reviewed the CT cervical spine and I felt the there is spondylosis over C6-C7 mostly Otherwise the of the chemistry panel are normal. Ammonia level less than 9. AST of 20 and ALT of 11. Urine toxicology the basic is nondetected. The Salicylates it's are less than 1, acetaminophen less than 10, phenytoin is less than 3, valproic acid 64.2 (therapeutic). Carbamazepine is less than 3, serum alcohol was less than 10. 01/10/2021 Patient is seen and evaluated and follow-up with no acute overnight issues. Patient was seen and evaluated by neurology and had adjustments to medications. Patient also seen by psychiatry recommending close outpatient follow-up with psychiatrist along with neurology consult and adjustments to the medical have been made and patient is to continue with Keppra and Depakote with the possibility of weaning off some antiepileptics in the outpatient setting. Currently no reports of chest pain, shortness of breath, or palpitations. Patient is afebrile. No reports of nausea or vomiting and patient is tolerating diet. Patient will be discharged home today. On exam vital signs are stable. Cardio S1, S2 are muffled. Respiratory system shows diminished breath sounds at the bases with no wheezing or rhonchi noted. Abdomen is soft and nontender. Nervous system shows no focal deficits. Please refer to medication reconciliation sheet for a list of medications. Patient Condition at Discharge: Stable Plan - Discharge Summary Discharge Rx Participant: No New Discharge Prescriptions: New lamoTRIgine [LaMICtal] 50 mg PO BID tab lamoTRIgine [LaMICtal] 100 mg PO BID tab Continue levETIRAcetam [Keppra] 1,500 mg PO BID 30 Days tab Zonisamide [Zonegran] 100 mg PO DAILY 30 Days cap busPIRone HCL 15 mg PO TID 30 Days tab Famotidine 20 mg PO HS 30 Days tab Montelukast [Singulair] 10 mg PO HS 30 Days tab Levothyroxine Sodium [Synthroid] 75 mcg PO DAILY Aspirin 81 mg PO HS traZODone HCL 100 mg PO HS PRN PRN Reason: Insomnia Divalproex Sodium [Depakote] 500 mg PO BID Discontinued Venlafaxine HCl ER [Effexor Xr] 225 mg PO DAILY Metoprolol Tartrate [Lopressor] 25 mg PO BID-W/MEALS lamoTRIgine [LaMICtal] 300 mg PO BID Discharge Medication List Famotidine 20 mg PO HS 30 Days tab 08/03/20 [Rx] Montelukast [Singulair] 10 mg PO HS 30 Days tab 08/03/20 [Rx] Zonisamide [Zonegran] 100 mg PO DAILY 30 Days cap 08/03/20 [Rx] busPIRone HCL 15 mg PO TID 30 Days tab 08/03/20 [Rx] levETIRAcetam [Keppra] 1,500 mg PO BID 30 Days tab 08/03/20 [Rx] Levothyroxine Sodium [Synthroid] 75 mcg PO DAILY 09/05/20 [History] Aspirin 81 mg PO HS 12/02/20 [History] Divalproex Sodium [Depakote] 500 mg PO BID 12/02/20 [History] traZODone HCL 100 mg PO HS PRN 12/02/20 [History] lamoTRIgine [LaMICtal] 50 mg PO BID tab 01/10/21 [Rx] lamoTRIgine [LaMICtal] 100 mg PO BID tab 01/10/21 [Rx] Follow up Appointment(s)/Referral(s): James Kirkland MD [REFERRING] - 1 Week (patient will have to call office and schedule appt.) Lucia Kc MD [Primary Care Provider] - 01/27/21 2:30 pm Activity/Diet/Wound Care/Special Instructions: Activity limited until follow-up Follow-up with primary care provider upon discharge follow up neurology outpatient Need possible outpatient epilepsy monitoring Continue current diet Discharge Disposition: HOME SELF-CARE
== END 2021-01-10 15:15 | disposition home or self-care (01) ==
LOC: EC 23:02 → 6NMEDSUR 01-09 01:14 → UNDOADMOB 01-09 01:14 → 4SSUR 01-09 01:47 → 5NMEDONC 01-09 16:51
PROVIDERS: ADMIT Hospitalist; ATTEND Hospitalist
DX: G40.909 Epilepsy, unspecified, not intractable, without status epilepticus (principal); I15.8 Other secondary hypertension; R41.82 Altered mental status, unspecified; E03.9 Hypothyroidism, unspecified; J44.9 Chronic obstructive pulmonary disease, unspecified; R00.1 Bradycardia, unspecified; I50.9 Heart failure, unspecified; F20.9 Schizophrenia, unspecified; F31.9 Bipolar disorder, unspecified; F41.9 Anxiety disorder, unspecified; E07.9 Disorder of thyroid, unspecified; K44.9 Diaphragmatic hernia without obstruction or gangrene; F17.200 Nicotine dependence, unspecified, uncomplicated; Z79.82 Long term (current) use of aspirin; Z79.890 Hormone replacement therapy; Z79.899 Other long term (current) drug therapy; Z82.49 Family history of ischemic heart disease and other diseases of the circulatory system; Z96.651 Presence of right artificial knee joint; Z20.822 Contact with and (suspected) exposure to COVID-19; Z91.81 History of falling
CPT/HCPCS: 96376; 96361; 96374; 99285; 36415; 94760; 93005; 80156; 80164; 80053; 80048; 80175; 80177; 80203; 82140; 82550; 80185; 84484; 85025 ×2; 85610; 85730; 81003; 80306; 80143; 87635; 80179; 72125; 70450; G0378 ×4; G0480; C9113 ×2; 80320

== ENCOUNTER 2021-04-01 17:09 | Emergency (ER) | payer MEDICARE ==
[2021-04-01 17:20] VITALS: RESP 18; TEMP 98.3
[2021-04-01] MEDS ORDERED: ONDANSETRON 4 MG/2 ML VIAL IVP STA (17:34)
[2021-04-01] MEDS ORDERED: SODIUM CHLORIDE 0.9% 1,000 ML IV STA (17:34)
[2021-04-01] MEDS ORDERED: KETOROLAC 15 MG/ML 1 ML VIAL IVP STA (17:34)
[2021-04-01] MEDS ORDERED: diphenhydrAMINE 50 MG/ML 1 ML VIAL IVP STA (17:34)
--- NOTE | 2021-04-01 17:38 | ED ---
General Adult HPI - General Chief complaint: Seizure Stated complaint: Seizure Time Seen by Provider: 04/01/21 17:15 Source: EMS Mode of arrival: EMS Limitations: altered mental status - History of Present Illness Initial comments: Dictation was produced using [employer] dictation software. please excuse any grammatical, word or spelling errors. Chief Complaint: 65-year-old male with past medical history of seizure disorder and headaches presents to the emergency department for seizure and head injury. History of Present Illness: Patient is a 65-year-old male presents to the emergency department for alleged seizure and head injury. Vision is brought in by EMS. EMS was called by patient's family for witnessed tonic-clonic activity. Patient does not recall the events that transpired today. He does not sure if he had a seizure today. EMS reports that family stated patient has not been taking his seizure medicines. Patient does not know the name of his seizure medications. He does not know which Dr. mcconnell and his seizure medicines. Chart review shows that patient is on Depakote, Keppra and Lamictal. Patient was a mild headache currently. States it's bifrontal. There is photophobia. Patient states this is typical of his usual headaches. Denies any numbness or paresthesias. He supposedly hit his head on a nonmoving object during today's seizure event. The ROS documented in this emergency department record has been reviewed and confirmed by me. Those systems with pertinent positive or negative responses have been documented in the HPI. All other systems are other negative and/or noncontributory. PHYSICAL EXAM: General Impression: Alert and oriented x3, not in acute distress HEENT: Normocephalic atraumatic, extra-ocular movements intact, pupils equal and reactive to light bilaterally, mucous membranes moist. Cardiovascular: Heart regular rate and rhythm Chest: Able to complete full sentences, no retractions, no tachypnea Abdomen: abdomen soft, non-tender, non-distended, no organomegaly Musculoskeletal: Pulses present and equal in all extremities, no peripheral edema Motor: no focal deficits noted Neurological: CN II-XII grossly intact, no focal motor or sensory deficits noted Skin: Intact with no visualized rashes Psych: Normal affect and mood ED course: 65-year-old male presents with seizure, possible head injury and headache. Vital signs upon arrival shows findings within acceptable limits. Laboratory evaluation obtained. CBC is unremarkable. Metabolic panel shows Acidosis consistent with seizure. Patient given headache cocktail with improvement of headache. Patient observed in the emergency department for 3 hours . He is reevaluated bedside at 8:15 PM found to be in stable medical condition. He was observed and did not have any recurrent episodes of seizure. Discussed disposition options with patient. He wants to go home. At this point patient is stable however he is strongly errors that he needs to take his medications like he is supposed to especially his seizure medication less he wants to have another seizure again which could also cause permanent brain damage. Patient understands. He does not know exactly which medications he takes. He is advised to follow-up with the doctor that manages his seizure medicines. Patient is understandable and agreeable. Patient be discharged. EKG interpretation: Ventricular rate 92, normal sinus rhythm,. Interval 176, QRS 140, QTc 474, right bundle branch block. No TX prolongation, no QTC prolongation, no ST or T-wave changes noted. - Related Data Home Medications Medication Instructions Recorded Confirmed Levothyroxine Sodium [Synthroid] 75 mcg PO DAILY 09/05/20 04/01/21 Aspirin 81 mg PO DAILY 12/02/20 04/01/21 Divalproex Sodium [Depakote] 500 mg PO BID 12/02/20 04/01/21 traZODone HCL 100 mg PO HS 12/02/20 04/01/21 Famotidine 20 mg PO DAILY 04/01/21 04/01/21 lamoTRIgine [LaMICtal] 300 mg PO BID 04/01/21 04/01/21 Previous Rx's Medication Instructions Recorded Montelukast [Singulair] 10 mg PO HS 30 Days tab 08/03/20 Zonisamide [Zonegran] 100 mg PO DAILY 30 Days cap 08/03/20 busPIRone HCL 15 mg PO TID 30 Days tab 08/03/20 levETIRAcetam [Keppra] 1,500 mg PO BID 30 Days tab 08/03/20 Allergies Allergy/AdvReac Type Severity Reaction Status Date / Time No Known Allergies Allergy Verified 01/08/21 23:08 Review of Systems ROS Statement: Those systems with pertinent positive or pertinent negative responses have been documented in the HPI. ROS Other: All systems not noted in ROS Statement are negative. Past Medical History Past Medical History: Chest Pain / Angina, Heart Failure, COPD, GERD/Reflux, Hypertension, Seizure Disorder, Thyroid Disorder Additional Past Medical History / Comment(s): falls,bronchitis,Memory impairment, legally incapacitated, hypothyroid, small hiatal hernia, diverticulosis History of Any Multi-Drug Resistant Organisms: None Reported Past Surgical History: Hernia Repair, Joint Replacement, Orthopedic Surgery Additional Past Surgical History / Comment(s): 08/2017 EGGD/colonoscopy, prior colonoscopy, umbilical hernia repair, L total knee, R partial knee replacement, R lower leg fracture with ORIF (hardware in place), ERCP, bilateral knee arthroscopies. Past Anesthesia/Blood Transfusion Reactions: No Reported Reaction Past Psychological History: Anxiety, Bipolar, Depression, Schizophrenia Smoking Status: Current some day smoker Past Alcohol Use History: Occasional Past Drug Use History: Marijuana - Past Family History Father Family Medical History: Cancer, Coronary Artery Disease (CAD), Pneumonia Additional Family Medical History / Comment(s): Father had a pacemaker. He of pneumonia. Mother Family Medical History: Coronary Artery Disease (CAD), CVA/TIA General Exam Limitations: altered mental status Course Vital Signs 04/01/21 04/01/21 04/01/21 17:15 18:20 19:00 Temperature 98.3 F Pulse Rate 106 H 100 100 Respiratory 18 18 18 Rate Blood Pressure 151/92 161/87 154/93 O2 Sat by Pulse 95 99 99 Oximetry Medical Decision Making - Lab Data Result diagrams: 04/01/21 Unknown 04/01/21 Unknown Lab Results 04/01/21 04/01/21 04/01/21 Range/Units 18:59 Unknown Unknown WBC 7.4 (3.8-10.6) k/uL RBC 4.55 (4.30-5.90) m/uL Hgb 14.1 (13.0-17.5) gm/dL Hct 41.5 (39.0-53.0) % MCV 91.1 (80.0-100.0) fL MCH 31.1 (25.0-35.0) pg MCHC 34.1 (31.0-37.0) g/dL RDW 12.6 (11.5-15.5) % Plt Count 194 (150-450) k/uL MPV 7.7 Neutrophils % 75 % Lymphocytes % 17 % Monocytes % 7 % Eosinophils % 1 % Basophils % 0 % Neutrophils # 5.5 (1.3-7.7) k/uL Lymphocytes # 1.2 (1.0-4.8) k/uL Monocytes # 0.5 (0-1.0) k/uL Eosinophils # 0.1 (0-0.7) k/uL Basophils # 0.0 (0-0.2) k/uL Sodium 134 L (137-145) mmol/L Potassium 4.1 (3.5-5.1) mmol/L Chloride 101 (98-107) mmol/L Carbon Dioxide 16 L (22-30) mmol/L Anion Gap 17 mmol/L BUN 11 (9-20) mg/dL Creatinine 1.33 H (0.66-1.25) mg/dL Est GFR (CKD-EPI)AfAm 66 (>60 ml/min/1.73 sqM) Est GFR (CKD-EPI)NonAf 57 (>60 ml/min/1.73 sqM) Glucose 146 H (74-99) mg/dL Calcium 9.5 (8.4-10.2) mg/dL Magnesium 2.6 H (1.6-2.3) mg/dL Troponin I <0.012 (0.000-0.034) ng/mL Disposition Clinical Impression: Seizure Disposition: HOME SELF-CARE Condition: Good Instructions (If sedation given, give patient instructions): Recurrent Seizures in Adults (ED) Is patient prescribed a controlled substance at d/c from ED?: No Referrals: Lucia Kc MD [Primary Care Provider] - 1-2 days
[2021-04-01 18:03] LABS: Basophils % (A) 0 %; Eosinophils # (A) 0.1 k/uL (0-0.7); Eosinophils % (A) 1 %; HCT 41.5 % (39.0-53.0); HGB 14.1 gm/dL (13.0-17.5); Lymphocytes # (A) 1.2 k/uL (1.0-4.8); Lymphocytes % (A) 17 %; MCH 31.1 pg (25.0-35.0); MCHC 34.1 g/dL (31.0-37.0); MCV 91.1 fL (80.0-100.0); Mean Platelet Volume 7.7; Monocytes # (A) 0.5 k/uL (0-1.0); Monocytes % (A) 7 %; Neutrophils # (A) 5.5 k/uL (1.3-7.7); Neutrophils % (A) 75 %; Platelet Count 194 k/uL (150-450); RBC 4.55 m/uL (4.30-5.90); RDW 12.6 % (11.5-15.5); WBC 7.4 k/uL (3.8-10.6)
[2021-04-01 18:11] LABS: Calcium 9.5 mg/dL (8.4-10.2); Magnesium 2.6 mg/dL (1.6-2.3); Potassium 4.1 mmol/L (3.5-5.1)
[2021-04-01 19:01] VITALS: PULSE 100
--- NOTE | 2021-04-01 19:10 | CT ---
EXAMINATION TYPE: CT brain kodi wo con DATE OF EXAM: 04/01/2021 COMPARISON: 01/08/2021 HISTORY: Seizure, fall. CT DLP: 1406.4 mGycm Automated exposure control for dose reduction was used. Images of the brain and cervical spine obtained without contrast. There is mild cerebral atrophy. There is no mass effect nor midline shift. There is no sign of intrac ranial hemorrhage. Calvarium is intact. Cervical vertebra have normal alignment. There is degenerative disc space narrowing throughout the ce rvical spine. There is no compression fracture. Posterior elements are intact. I see no bony destruct ty process. There is normal aeration of the mastoid sinuses. IMPRESSION: Mild atrophy. No acute intracranial abnormality. Moderate multilevel cervical spondylotic changes. No acute abnormality of the cervical spine. No change.
[2021-04-01 20:50] VITALS: BP 164/79
== END 2021-04-01 20:48 | disposition home or self-care (01) ==
LOC: EC 17:09
DX: G40.909 Epilepsy, unspecified, not intractable, without status epilepticus (principal); E03.9 Hypothyroidism, unspecified; I11.0 Hypertensive heart disease with heart failure; I50.9 Heart failure, unspecified; J44.9 Chronic obstructive pulmonary disease, unspecified; F32.9 Major depressive disorder, single episode, unspecified; F17.200 Nicotine dependence, unspecified, uncomplicated; F12.90 Cannabis use, unspecified, uncomplicated; K21.9 Gastro-esophageal reflux disease without esophagitis; Z79.82 Long term (current) use of aspirin; Z96.653 Presence of artificial knee joint, bilateral
CPT/HCPCS: 36415; 93005; 80048; 83735; 84484; 85025; 72125; 70450; 99285; 96374; 96375 ×2; J1200; J2405; J1885